=== PATIENT | male | born 1995 | race Caucasian/White ===

== ENCOUNTER 2021-09-04 16:05 | Inpatient (IN) | payer SELFPAY ==
--- NOTE | 2021-09-04 16:21 | ED.C_ITS ---
HPI - Psych General: Chief Complaint: Psychiatric Symptoms Stated Complaint: SI W/PLAN Time Seen by Provider: 09/04/21 16:21 History of Present Illness: HPI Narrative: Ms Terrazas is a 26-year-old gentleman with history of depression who presents to the emergency department with depression with suicidal ideation. He reports symptoms have been worse over the past month or so without specific exacerbating factors. He describes near constant intrusive thoughts of suicide and actively having to make decisions not to kill himself. His plan is to shoot himself and he does have access to firearms. He misses doses of medication every so often and has been out of his Risperdal for the past 3 days. He denies acute medical complaints. Overall the course of symptoms has been worsening. He has been hospitalized previously for psychiatric reasons though nothing recently. No other specific exacerbating or alleviating factors noted. Review of Systems General: Reports: 10 or more systems reviewed and unremarkable except in HPI and below PFSH ED PFSH: Medical History Major depressive disorder, recurrent severe without psychotic features Psychiatric care Social History Smoking and tobacco status: current every day smoker e-cigarettes E-Cigarette Details: vaporizer device and with nicotine E-cig/vape details: 5 mg/Day Quit status (tobacco): considering quitting Second hand smoke exposure: No Current gender identity: Male Physical Exam Narrative: EXAM NARRATIVE: GENERAL/CONSTITUTIONAL - well-appearing. No acute distress. Eyes -no scleral icterus, no conjunctival injection ENMT - Atraumatic external nose and ears. Moist mucous membranes NECK - supple. trachea midline CARDIOVASCULAR - regular rate and rhythm. RESPIRATORY -clear to auscultation bilaterally. ABDOMEN/GI - Nontender/Nondistended. MSK - Extremities without obvious deformity or tenderness to palpation SKIN - Warm, Dry NEURO - alert and appropriately oriented. Moves all extremities equally. PSYCH -depressed mood and affect Course ED course: - Patient was seen and evaluated by me at bedside -Vital signs obtained - Initial evaluation notable for no acute distress, nontoxic. - Labs notable for no leukocytosis, normal hemoglobin. Mild evidence of likely dehydration, can be orally rehydrated. Toxic ingestions negative with exception of marijuana. -Based on ED evaluation at this point there is no obvious condition that would preclude the patient from inpatient management of psychiatric concerns. Based on suicidal ideation with plan patient requires inpatient management -Psychiatry service consulted and agreed admit the patient. Vital Signs: Vital signs: Vital Signs Temperature 98.2 F 09/08/21 14:00 Pulse Rate 71 09/09/21 13:12 Respiratory Rate 16 09/09/21 13:12 Blood Pressure 121/79 09/09/21 13:12 Pulse Oximetry 96 09/09/21 13:12 MDM - Psych Medical Records: Attestation: I reviewed the patient's medical records. Lab Data: Attestation: I reviewed the patient's lab results. Labs: Lab Results 09/04/21 09/04/21 09/04/21 17:03 17:03 17:03 WBC 9.4 10^3/uL 10^3/ uL (4.0-10.0) RBC 5.16 10^6/uL 10^6 /uL (4.1-5.3) Hgb 14.8 g/dL g/dL (11.7-16.6) Hct 44.1 % % (42.0-52.0) MCV 85.5 fl fl (80-94) MCH 28.7 pg pg (28.0-34.0) MCHC 33.6 g/dL g/dL (30.0-36.0) RDW 12.6 % % (12.1-15.1) Plt Count 243 10^3/cmm 10^3 /cmm (130-400) MPV 11.0 fL H fL (7.4-10.4) Neut % (Auto) 78.4 % % Lymph % (Auto) 14.8 % % Kimble % (Auto) 5.8 % % Eos % (Auto) 0.4 % % Baso % (Auto) 0.3 % % Neut # (Auto) 7.33 10^3/uL 10^3 /uL (1.8-7.7) Lymph # (Auto) 1.4 10^3/uL 10^3/ uL (0.8-4.8) Kimble # (Auto) 0.5 10^3/uL 10^3/ uL (0.2-0.9) Eos # (Auto) 0.0 10^3/uL 10^3/ uL (0.0-0.8) Baso # (Auto) 0.0 10^3/uL 10^3/ uL (0.0-0.1) Nucleated RBC % (a uto) 0 % % Nucleated RBCs # 0.0 /100WBC /100W BC Sodium 135 mmol/L L mmol /L (136-145) Potassium 3.9 mmol/L mmol/L (3.5-5.1) Chloride 101 mmol/L mmol/L (98-107) Carbon Dioxide 17 mmol/L L mmol/ L (22-29) Anion Gap 20.9 H (5-19) BUN 11 mg/dL mg/dL (6-20) Creatinine 0.7 mg/dL mg/dL (0.7-1.2) GFR Calculation 138.6 mL/min H mL /min (90-130) Glucose 85 mg/dL mg/dL (65-115) Calculated Osmolal ity 279 mOsm/kg L mOs m/kg (285-295) Calcium 9.2 mg/dL mg/dL (8.5-10.5) Total Bilirubin 0.5 mg/dL mg/dL (0.15-1.2) AST 19 U/L U/L (0-40) ALT 31 U/L U/L (0-41) Alkaline Phosphata se 88 IU/L IU/L (40-130) Total Protein 7.8 g/dL g/dL (6.6-8.7) Albumin 4.8 g/dL g/dL (3.5-5.2) Globulin 3.0 g/dL g/dL (1.3-4.6) TSH 2.10 uIU/mL uIU/m L (0.27-4.20) Salicylates < 0.3 mg/dL L mg/ dL (3-10) Urine Opiates Scre en Negative ng/mL ng /mL (Negative) Acetaminophen < 5.0 ug/mL L ug/ mL (10-30) Ur Barbiturates Sc reen Negative ng/mL ng /mL (Negative) Ur Phencyclidine S crn Negative ng/mL ng /mL (Negative) Ur Amphetamines Sc reen Negative ng/mL ng /mL (Negative) U Benzodiazepines Scrn Negative ng/mL ng /mL (Negative) Urine Cocaine Scre en Negative ng/mL ng /mL (Negative) U Marijuana (THC) Screen Positive ng/mL H ng/mL (Negative) Ethyl Alcohol < 10 mg/dL mg/dL (0-10) Discharge Plan Discharge Admit Provider: Timur Huntley Condition: Stable Discharge Orders: Discharge Order (Routine); Ordered 09/09/21 Ordered By: Timur Huntley Discharge Diet: Regular Discharge Activity: Resume usual activity Coding Level of Care Code ED Financial Aid Administrator for Eric Glover
[2021-09-04 16:22] VITALS: BP 163/106; PULSE 73; RESP 18; TEMP 36.9; O2SAT 97; BMI 35.9
[2021-09-04 17:05] VITALS: BP 163/106; PULSE 73; RESP 18; O2SAT 97
[2021-09-04 17:11] LABS: Basophils % 0.3 %; Eosinophils % 0.4 %; Hematocrit 44.1 % (42.0-52.0); Hemoglobin 14.8 g/dL (11.7-16.6); Lymphocytes # 1.4 10^3/uL (0.8-4.8); Lymphocytes % 14.8 %; Mean Corpuscular HGB Conc 33.6 g/dL (30.0-36.0); Mean Corpuscular Hemoglobin 28.7 pg (28.0-34.0); Mean Corpuscular Volume 85.5 fl (80-94); Monocytes # 0.5 10^3/uL (0.2-0.9); Monocytes % 5.8 %; Neutrophils # 7.33 10^3/uL (1.8-7.7); Neutrophils % 78.4 %; Nucleated Red Blood Cells % 0 %; Platelet Count 243 10^3/cmm (130-400); Red Blood Count 5.16 10^6/uL (4.1-5.3); Red Cell Distribution Width 12.6 % (12.1-15.1); White Blood Count 9.4 10^3/uL (4.0-10.0)
[2021-09-04 17:24] LABS: Amphetamines Screen Urine Negative (Negative); Barbiturates Screen Urine Negative (Negative); Benzodiazepines Screen Urine Negative (Negative); Cocaine Screen Urine Negative (Negative); Opiate Screen Urine Negative (Negative); PCP Screen Urine Negative (Negative); THC Screen Urine Positive (Negative)
[2021-09-04 17:44] LABS: Acetaminophen < 5.0 ug/mL (10-30); Alanine Aminotransferase 31 U/L (0-41); Albumin Level 4.8 g/dL (3.5-5.2); Alcohol Level < 10 mg/dL (0-10); Alkaline Phosphatase 88 IU/L (40-130); Anion Gap 20.9 (5-19); Aspartate Amino Transferase 19 U/L (0-40); Blood Urea Nitrogen 11 mg/dL (6-20); Calcium 9.2 mg/dL (8.5-10.5); Carbon Dioxide 17 mmol/L (22-29); Chloride 101 mmol/L (98-107); Glomerular Filtration Rate 138.6 mL/min (90-130); Glucose 85 mg/dL (65-115); Osmolality Calculated 279 mOsm/kg (285-295); Potassium 3.9 mmol/L (3.5-5.1); Salicylate < 0.3 mg/dL (3-10); Sodium 135 mmol/L (136-145); Total Bilirubin 0.5 mg/dL (0.15-1.2); Total Protein 7.8 g/dL (6.6-8.7)
[2021-09-04] MEDS: nicotine 14 mg Patch 1 PATCH TRANSDERMA (19:14)
[2021-09-04 20:10] VITALS: BP 133/77; PULSE 69; RESP 18; O2SAT 98
[2021-09-04 22:00] VITALS: BP 133/77; PULSE 69; RESP 18; TEMP 36.9; O2SAT 98
[2021-09-04] MEDS: risperiDONE 2 mg Tablet PO (23:39)
[2021-09-04] MEDS: trazodone 50 mg Tablet PO (23:39)
[2021-09-05] MEDS: risperiDONE 2 mg Tablet PO ×3 (01:54→20:07)
[2021-09-05 06:00] VITALS: RESP 17
--- NOTE | 2021-09-05 08:06 | P.NPUHP_ITS ---
Providers/Chief Complaint Admitting Physician: Timur Huntley MD Chief Complaint: SI W/PLAN HPI NPU History of Present Illness Braulio Terrazas is a 26 year old male presented to the emergency department with the following report: Chief Complaint: Psychiatric Symptoms Stated Complaint: SI W/PLAN Time Seen by Provider: 09/04/21 16:21 History of Present Illness: HPI Narrative: Ms Terrazas is a 26-year-old gent maurizio with history of depression who presents to the emergency department with depression with suicidal ideation. He reports symptoms have been worse over the past month or so without specific exacerbating factors. He describes near constant intrusive thoughts of suicide and actively having to make decisions not to kill himself. His plan is to shoot himself and he does have access to firearms. He misses doses of medication every so often and has been out of his Risperdal for the past 3 days. He denies acute medical complaints. Overall the course of symptoms has been worsening. He has been hospitalized previously for psychiatric reasons though nothing recently. No other specific exacerbating or alleviating factors noted. He was admitted to the neuropsychiatric unit for definitive treatment of those issues. He presents today reporting that things have not changed that much since last time he was in the hospital. He mainly reported that [place] was now [place] girlfriend and their family. Which initially was a positive to be away from his family but recently has turned negative. He reports the main stressor in the home is that he is currently not working and hi s girlfriend's mother says disparaging things about him behind his back to his girlfriend which has created some contention. Additionally stressed out by his mother's cancer diagnosis, is bank account being empty, and feeling like no matter how hard he works on his mental health and other factors he always ends up at the same place which he reports has created significant despair. He reports that he does not know if we cannot get some stability whether he will be able to avoid killing himself. He discussed a situation where his significant other made him very angry that he is unclear why he did just turn into traffic. We discussed the risk benefits and alternatives of increasing his Prozac to 40 mg p.o. every morning and he understood agreed to proceed as is documented in his note. Reviewed his other medications which appear to be helping. He denies any other substantive changes in his life and an excerpt of his outpatient psychiatric evaluation is included below for context. We discussed seeing whether he had presented to the emergency department enough to get connected with the [facility] program but also discussed the possibility of getting him connected with [facility]. Per his 12/13/2020 [facility] outpatient psychiatric evaluation: [facility] History and Physical Time In: 09:20 Time Out: 10:15 Chief Complaint: I need to get back on medications History of Present Illness: This is a 25-year-old male who is been diagnosed with various diagnoses in the past including schizoaffective disorder, polysubstance use including marijuana, alcohol, nicotine, inhalants, and other substances, in addition to depression and anxiety, and cluster a personality traits. Today he describes a history that certainly consistent with schizoid and schizotypal personality traits and that he has a coping style centered around fantasy world including imaginative but also books and films, but his mo re recent presentation in the last few years have presented with some paranoid ideations and auditory hallucinations at times but she certainly has good insight into, and may have been exacerbated by continuous drug use including huffing gas starting around age 89 years old, the last time was 2 years ago, heavy alcohol use and marijuana use all of which started very young, alcohol starting at age 12, nicotine starting by age 79 years old, marijuana starting by age [age] years old. Today after discussing his past history and reviewing his to psychiatric admissions that both happened in 2019, I feel that the cluster B personality traits along with anxiety and depression are the most applicable in addition to the substance use. I believe that any psychotic symptoms he had were exacerbated by substance there is no doubt he does have schizoid and schizotypal personality traits. Question of trauma history is also come up and he tells me that he does not have much memory of his childhood, but this sounds as if it is more related to his chronic coughing of gasoline and marijuana use and other substances other than a dissociation process. There does not seem to be a history of severe physical or sexual abuse or even domestic violence but he says he was bullied severely by his brothers and his father was an angry alcoholic and yelled a lot. The patient remembers having depression and edlmi cidal thoughts even in elementary school as a result of the bullying from his older brothers. He tells me that he got so bad that he ended up being a bully himself for a few years. There is no active suicidal thoughts, there is no actual history of suicide attempts, but he has had some cutting superficially for self-harm and in addition he says he often peeled back his fingernails and toenails as a form self-harm the last time this happened was 3 weeks ago. During the session today he does not appear internally preoccupied but he is a little oddly related consistent with a cluster a personality. He is denying active hallucinations at this time but he does when to get back on the Risperdal saying that it helped him with stabilizing his mood but he is unsure if it helped with hallucinations. He does say that the hallucinations were less sinister and had less energy while on medications. History Past Psychiatric History: 2 psychiatric admissions in 2019 were his only admissions and they were each for about a week with suicidal ideations in the context of substance use. Denies actual suicide attempts, has had self-harm in the form of cutting and peeling back to his nails. Family History: Father had depression and alcoholism, a brother could possibly be bipolar, Past Medical History: Denies current medical issues. Substance Use History: Inhalants: Started age 89 years old huffing gasoline, he still coughs on occasion and last used 2 years ago at age 23 which is a little late for puffers as they tend to stop in their teenage years. Alcohol: Started age [age] years old, for a few years he was drinking a 12 pack a day, now he drinks 6 or 7 beers once a week and a few beers on other nights. Marijuana: Started age [age] years old has been a consistent user periods in his life Nicotine: Currently up 3 to 5 mg a day, started smoking cigarettes when he picked him up from his mother's ashtray at age 79 years old. Other: He says he has used other pills in the past including some opiates, muscle relaxers, amphetamines but nothing consistent. Social History: He denies ever being or ever having kids. He did graduate high school in [place], he is currently trying to go to college. Meds NPU Home Medications Medication Instructions Recorded Confirmed Last Taken Type fluoxetine 20 mg capsule 20 mg PO DAILY #30 cap 02/27/21 09/04/21 09/02/21 Rx risperidone 2 mg tablet 2 mg PO BID #60 tab 02/27/21 09/04/21 09/02/21 Rx melatonin 10 mg PO BEDTIME PRN 09/04/21 09/04/21 Unknown History Allergies Allergy/AdvReac Type Severity Reaction Status Date / Time No Known Allergies Allergy Verified 09/04/21 16:56 PFS NPU PFSH: Medical History Major depressive disorder, recurrent severe without psychotic features Psychiatric care Social History Smoking and tobacco status: current every day smoker e-cigarettes E-Cigarette Details: vaporizer device and with nicotine E-cig/vape details: 5 mg/Day Quit status (tobacco): considering quitting Second hand smoke exposure: No Current gender identity: Male Mental Status Exam MSE Comments: This is an overweight white male with adequate dress, grooming and eye contact. No abnormal movements except for mild psychomotor retardation. Cooperative with exam in no acute distress. Speech was normal rate and decreased volume. Mood described as depressed, affect congruent. Thought proce ss organized. Thought content: Patient endorsed some suicidal but denied homicidal ideations, there were no delusions reported or noted, he denied any visual hallucinations but endorses auditory hallucinations. Attention, concentration and memory appear intact but were not formally tested. He is alert and oriented x3. Insight and judgment are limited, impulse control limited. Vitals/I&O/Wt Last Vital Signs Temp 98.5 F 09/04/21 22:00 Pulse 69 09/04/21 22:00 Resp 17 09/05/21 06:00 BP 133/77 09/04/21 22:00 Pulse Ox 98 09/04/21 22:00 Weight last 48 hrs Weight 127.006 kg Data NPU : 09/04/21 17:03 09/04/21 17:03 A&P Assessment and plan (1) Major depressive disorder, recurrent, severe with psychotic symptoms: Status: Acute (2) Cannabis use disorder, moderate, in early remission, dependence: Status: Acute (3) Moderate alcohol dependence: Status: Acute (4) Inhalant use disorder, moderate, in sustained remission, dependence: Status: Acute (5) Nicotine dependence, unspecified, uncomplicated: Status: Acute (6) 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 1. Continue current medication. Increase Prozac to 40 mg p.o. every morning. 2. Continue every 15 minute checks for safety. 3. Encourage individual, group and milieu therapies. 4. Encourage sober living treatment after discharge at the highest level of care to which he is willing to commit. 5. Work with treatment team to explore what resources including case management he can be connected with. Attestations NPU Medical Necessity Statement*: Inpatient hospitalization is medically necessary and the clinically appropriate intervention at this time. We will monitor medication to make changes as indicated. Likely length of stay 3 to 5 days. 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
[2021-09-05] MEDS: nicotine 2 mg Gum BUCCAL ×2 (09:12→20:06)
[2021-09-05] MEDS: fluoxetine 20 mg Capsule PO (09:13)
[2021-09-05 14:00] VITALS: BP 142/79; PULSE 73; RESP 20; TEMP 36.6; O2SAT 97
[2021-09-05] MEDS: hyDROXYzine 25 mg Capsule 50 MG PO (17:08)
[2021-09-05] MEDS: trazodone 50 mg Tablet PO (20:06)
[2021-09-05 21:37] VITALS: BP 117/57; PULSE 72; RESP 18; TEMP 36.8; O2SAT 99
[2021-09-06 06:00] VITALS: BP 112/66; PULSE 58; RESP 17; TEMP 36.7; O2SAT 97
[2021-09-06] MEDS: fluoxetine 20 mg Capsule 40 MG PO (08:45)
[2021-09-06] MEDS: risperiDONE 2 mg Tablet PO ×2 (08:45→20:44)
[2021-09-06] MEDS: nicotine 2 mg Gum BUCCAL ×2 (08:45→20:44)
[2021-09-06 14:00] VITALS: BP 121/70; PULSE 77; RESP 20; TEMP 36.4; O2SAT 99
--- NOTE | 2021-09-06 18:14 | W.PM.NPUPNS ---
Subjective NPU Subjective: Interval history: Patient presents today reporting that he did have some spotting earlier but that he feels a little better right now. We discussed the timeframe to seeing a difference in the increase in the Prozac. We also discussed the plan to get him connected to resources that would allow for him to be trying to take steps forward in areas of independence. We discussed transitional programming and programs of case management and he felt that was a great idea. We did putting things in place prior to discharge given his level of despair at times. Mental Status Exam MSE Comments: This is an overweight white male with adequate dress, grooming and eye contact. No abnormal movements except for mild psychomotor retardation. Cooperative with exam in no acute distress. Speech was normal rate and decreased volume. Mood described as a little better, affect congruent. Thought process organized. Thought content: Patient endorsed some suicidal but denied homicidal ideations, there were no delusions reported or noted, he denied any visual hallucinations but endorses auditory hallucinations. Attention, concentration and memory appear intact but were not formally tested. He is alert and oriented x3. Insight and judgment are limited, impulse control limited. 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 1. Continue current medication. Increased Prozac to 40 mg p.o. every morning. 2. Continue every 15 minute checks for safety. 3. Encourage individual, group and milieu therapies. 4. Encourage sober living treatment after discharge at the highest level of care to which he is willing to commit. 5. Work with treatment team to explore what resources including case management he can be connected with. Attestations NPU Medical Necessity Statement*: Inpatient hospitalization is medically necessary and the clinically appropriate intervention at this time. We will monitor medication to make changes as indicated. Likely length of stay 2-4 days. Coding Level of Care Code Acute Humane Officer for Eric Glover
[2021-09-06] MEDS: trazodone 50 mg Tablet PO (20:44)
[2021-09-06] MEDS: hyDROXYzine 25 mg Capsule 50 MG PO (20:44)
[2021-09-06 21:18] VITALS: BP 138/84; PULSE 87; RESP 18; TEMP 36.8; O2SAT 99
[2021-09-07 06:00] VITALS: BP 130/81; PULSE 61; RESP 17; TEMP 36.6; O2SAT 98
[2021-09-07] MEDS: risperiDONE 2 mg Tablet PO ×2 (08:37→20:09)
[2021-09-07] MEDS: fluoxetine 20 mg Capsule 40 MG PO (08:37)
--- NOTE | 2021-09-07 09:13 | W.PM.NPUPNS ---
Subjective NPU Subjective: Interval history: Patient resents today reporting that he started to feel better. He even went as far as the talking about discharge. We had a lengthy discussion reviewing what we had discussed thus far specifically needing a element of safety by getting him connected with case management or the [facility] program with some entity to help him begin to navigate resources and be able to get some transitional housing or something with avoidance of being at the mercy of whoever he decides to live with. He agreed that that was a reasonable idea we talked about the possibility of discharge on Thursday with those things in place. Mental Status Exam MSE Comments: This is an overweight white male with adequate dress, grooming and eye contact. No abnormal movements except for mild psychomotor retardation. Cooperative with exam in no acute distress. Speech was normal rate and decreased volume. Mood described as a little better, affect congruent. Thought process organized. Thought content: Patient endorsed some suicidal but denied homicidal ideations, there were no delusions reported or noted, he denied any visual hallucinations but endorses auditory hallucinations. Attention, concentration and memory appear intact but were not formally tested. He is alert and oriented x3. Insight and judgment are limited, impulse control limited. 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 1. Continue current medication. 2. Continue every 15 minute checks for safety. 3. Encourage individual, group and milieu therapies. 4. Encourage sober living treatment after discharge at the highest level of care to which he is willing to commit. 5. Work with treatment team to explore what resources including case management he can be connected with. Attestations NPU Medical Necessity Statement*: Inpatient hospitalization is medically necessary and the clinically appropriate intervention at this time. We will monitor medication to make changes as indicated. Likely length of stay 2-3 days. Coding Level of Care Code Acute Leading Firefighter for Eric Glover
[2021-09-07 14:00] VITALS: BP 134/76; PULSE 79; RESP 15; TEMP 36.9; O2SAT 99
[2021-09-07] MEDS: nicotine 2 mg Gum BUCCAL (18:09)
[2021-09-07] MEDS: trazodone 50 mg Tablet PO (20:09)
[2021-09-07 22:00] VITALS: BP 134/73; PULSE 73; RESP 18; TEMP 36.9; O2SAT 98
[2021-09-08 05:36] VITALS: BMI 35.9
[2021-09-08 06:00] VITALS: BP 109/65; PULSE 56; RESP 17; TEMP 36.5; O2SAT 97
[2021-09-08] MEDS: risperiDONE 2 mg Tablet PO ×2 (08:42→20:42)
[2021-09-08] MEDS: fluoxetine 20 mg Capsule 40 MG PO (08:42)
--- NOTE | 2021-09-08 09:17 | P.NPUPN_ITS ---
Subjective NPU Subjective: Interval history: Patient presents today reporting that he is feeling decent. We agreed that we would work with the treatment team tomorrow to explore whether some opportunities in case management or other programming that will help with transitional housing and resources to help towards his independence exist. He is tolerating the changes in the medication and reports that he is eating and sleeping a little better. Mental Status Exam MSE Comments: This is an overweight white male with adequate dress, grooming and eye contact. No abnormal movements except for mild psychomotor retardation. Cooperative with exam in no acute distress. Speech was normal rate and vo lume. Mood described as a little better, affect congruent. Thought process organized. Thought content: Patient denied suicidal or homicidal ideations, there were no delusions reported or noted, he denied any visual hallucinations but endorses auditory hallucinations have significantly diminished. Attention, concentration and memory appear intact but were not formally tested. He is alert and oriented x3. Insight and judgment are limited, impulse control limited. Vitals/I&O/Wt Last Vital Signs Temp 97.7 F 09/08/21 06:00 Pulse 56 L 09/08/21 06:00 Resp 17 09/08/21 06:00 BP 109/65 09/08/21 06:00 Pulse Ox 97 09/08/21 06:00 Weight last 48 hrs Weight 127.006 kg Data NPU : 09/04/21 17:03 09/04/21 17:03 A&P Additional A&P Information (1) Major depressive disorder, recurrent, severe with psychotic symptoms: (2) Cannabis use disorder, moderate, in early remission, dependence: (3) Moderate alcohol dependence: (4) Inhalant use disorder, moderate, in sustained remission, dependence: (5) Nicotine dependence, unspecified, uncomplicated: (6) Cluster A personality disorder in adult: (7) Generalized anxiety disorder: Additional A&P Information This is an obese white male with known history of depression and addiction who presents with significant psychosocial stressors, recent suicidal thoughts and significant feelings of hopelessness open to medication changes and referrals. 1. Continue current medication. 2. Continue every 15 minute checks for safety. 3. Encourage individual, group and milieu therapies. 4. Encourage sober living treatment after discharge at the highest level of care to which he is willing to commit. 5. Work with treatment team to explore what resources including case management he can be connected with. Attestations NPU Medical Necessity Statement*: Inpatient hospitalization is medically necessary and the clinically appropriate intervention at this time. We will monitor medication to make changes as indicated. Likely length of stay 1-2 days. Coding Level of Care Code Acute Mixer [employer] for Eric Glover
[2021-09-08] MEDS: nicotine 2 mg Gum BUCCAL (13:39)
[2021-09-08 14:00] VITALS: BP 124/71; PULSE 74; RESP 20; TEMP 36.8; O2SAT 97
[2021-09-08 20:07] VITALS: BP 148/88; PULSE 101; RESP 17; O2SAT 98
[2021-09-08] MEDS: trazodone 50 mg Tablet PO (20:44)
[2021-09-09 06:00] VITALS: BP 121/79; PULSE 71; RESP 16; O2SAT 96
[2021-09-09] MEDS: risperiDONE 2 mg Tablet PO (08:57)
[2021-09-09] MEDS: fluoxetine 20 mg Capsule 40 MG PO (08:57)
[2021-09-09] MEDS: nicotine 2 mg Gum BUCCAL (08:57)
--- NOTE | 2021-09-09 12:43 | P.NPUDS_ITS ---
Diagnoses at Discharge Discharge Diagnosis (1) Major depressive disorder, recurrent, severe with psychotic symptoms: Status: Acute (2) Cannabis use disorder, moderate, in early remission, dependence: Status: Acute (3) Moderate alcohol dependence: Status: Acute (4) Inhalant use disorder, moderate, in sustained remission, dependence: Status: Deleted (5) Nicotine dependence, unspecified, uncomplicated: Status: Acute (6) Cluster A personality disorder in adult: Status: Acute (7) Generalized anxiety disorder: Status: Acute Reason for Visit Reason for Visit: SI W/PLAN Brief History: History of Present Illness Braulio Terrazas is a 26 year old male presented to the emergency department with the following report: Chief Complaint: Psychiatric Symptoms Stated Complaint: SI W/PLAN Time Seen by Provider: 09/04/21 16:21 History of Present Illness: HPI Narrative: Ms Terrazas is a 26-year-old gentleman with history of depression who presents to the emergency department with depression with suicidal ideation. He reports symptoms have been worse over the past month or so without specific exacerbating factors. He describes near constant intrusive thoughts of suicide and actively having to make decisions not to kill himself. His plan is to shoot himself and he does have access to firearms. He misses doses of medication every so often and has been out of his Risperdal for the past 3 days. He denies acute medical complaints. Overall the course of symptoms has been worsening. He has been hospitalized previously for psychiatric reasons though nothing recently. No other specific exacerbating or alleviating factors noted. He was admitted to the neuropsychiatric unit for definitive treatment of those issues. He presents today reporting that things have not changed that much since last time he was in the hospital. He mainly reported that [place] girlfriend and their family. Which initially was a positive to be away from his family but recently has turned negative. He reports the main stressor in the home is that he is currently not working and his girlfriend's mother says disparaging things about him behind his back to his girlfriend which has created some contention. Additionally stressed out by his mother's cancer diagnosis, is bank account being empty, and feeling like no matter how hard he works on his mental health and other factors he always ends up at the same place which he reports has created significant despair. He reports that he does not know if we cannot get some stability whether he will be able to avoid killing himself. He discussed a situation where his significant other made him very angry that he is unclear why he did just turn into traffic. We discussed the risk benefits and alternatives of increasing his Prozac to 40 mg p.o. every morning and he understood agreed to proceed as is documented in his note. Reviewed his other medications which appear to be helping. He denies any other substantive changes in his life and an excerpt of his outpatient psychiatric evaluation is included below for context. We discussed seeing whether he had presented to the emergency department enough to get connected with the [facility] program but also discussed the possibility of getting him connected with [facility] [employer] Per his 12/13/2020 [facility] outpatient psychiatric evaluation: [facility] History and Physical Time In: 09:20 Time Out: 10:15 Chief Complaint: I need to get back on medications History of Present Illness: This is a 25-year-old male who is been diagnosed with various diagnoses in the past including schizoaffective disorder, polysubstance use including marijuana, alcohol, nicotine, inhalants, and other substances, in addition to depression and anxiety, and cluster a personality traits. Today he describes a history that certainly consistent with schizoid and schizotypal personality traits and that he has a coping style centered around fantasy world including imaginative but also books and films, but his more recent presentation in the last few years have presented with some paranoid ideations and auditory hallucinations at times but she certainly has good insight into, and may have been exacerbated by continuous drug use including huffing gas starting around age 89 years old, the last time was 2 years ago, heavy alcohol use and marijuana use all of which started very young, alcohol starting at age 12, nicotine starting by age 79 years old, marijuana starting by age [age] years old. Today after discussing his past history and reviewing his to psychiatric admissions that both happened in 2019, I feel that the cluster B personality traits along with anxiety and depression are the most applicable in addition to the substance use. I believe that any psychotic symptoms he had were exacerbated by substance there is no doubt he does have schizoid and schizotypal personality traits. Question of trauma history is also come up and he tells me that he does not have much memory of his childhood, but this sounds as if it is more related to his chronic coughing of gasoline and marijuana use and other substances other than a dissociation process. There does not seem to be a history of severe physical or sexual abuse or even domestic violence but he says he was bullied severely by his brothers and his father was an angry alcoholic and yelled a lot. The patient remembers having depression and suicidal thoughts even in elementary school as a result of the bullying from his older brothers. He tells me that he got so bad that he ended up being a bully himself for a few years. There is no active suicidal thoughts, there is no actual history of suicide attempts, but he has had some cutting superficially for self-harm and in addition he says he often peeled back his fingernails and toenails as a form self-harm the last time this happened was 3 weeks ago. During the session today he does not appear internally preoccupied but he is a little oddly related consistent with a cluster a personality. He is denying active hallucinations at this time but he does when to get back on the Risperdal saying that it helped him with stabilizing his mood but he is unsure if it helped with hallucinations. He does say that the hallucinations were less sinister and had less energy while on medications. History Past Psychiatric History: 2 psychiatric admissions in 2019 were his only admissions and they were each for about a week with suicidal ideations in the context of substance use. Denies actual suicide attempts, has had self-harm in the form of cutting and peeling back to his nails. Family History: Father had depression and alcoholism, a brother could possibly be bipolar, Past Medical History: Denies current medical issues. Substance Use History: Inhalants: Started age 89 years old huffing gasoline, he still coughs on occasion and last used 2 years ago at age 23 which is a little late for puffers as they tend to stop in their teenage years. Alcohol: Started age [age] years old, for a few years he was drinking a 12 pack a day, now he drinks 6 or 7 beers once a week and a few beers on other nights. Marijuana: Started age [age] years old has been a consistent user periods in his life Nicotine: Currently up 3 to 5 mg a day, started smoking cigarettes when he picked him up from his mother's ashtray at age 79 years old. Other: He says he has used other pills in the past including some opiates, muscle relaxers, amphetamines but nothing consistent. Social History: He denies ever being or ever having kids. He did graduate high school in [place], he is currently trying to go to college. Hospital Course Hospital Course He slowly acclimated to the individual, group and milieu therapies provided. He is challenged by a certain level of immaturity and almost magical thinking where he is acknowledging the reality of the situation but ultimately wanting things to be at a positive place and is making decisions based on how he wants it and not how it is. Ultimately we added medication for sleep but left most things as they were given the circumstantial reality of his challenges. He had modest improvement and was able to contract for safety outside the hospital prior to discharge. During the hospitalization, patient had routine laboratory studies which were within normal limits except for few outliers. Additionally there was a general medical evaluation which was also within normal limits and revealed no new acute processes. Discharge Summary: At the time of discharge, he denied psychosis or lethality. Mood and anxiety were well managed. Patient endorsed a plan to avoid all drugs of abuse and follow-up with the aftercare recommendations of the treatment team. Patient was evaluated and deemed to be absent credible lethality, and had achieved the maximum benefit from an inpatient hospitalization, so was discharged. Mental Status Exam MSE Comments: This is an overweight white male with adequate dress, grooming and eye contact. No abnormal movements except for mild psychomotor retardation. Cooperative with exam in no acute distress. Speech was normal rate and volume. Mood described as better, affect congruent. Thought process organized. Thought content: Patient denied suicidal or homicidal ideations, there were no delusions reported or noted, he denied any visual or auditory hallucinations. Attention, concentration and memory appear intact but were not formally tested. He is alert and oriented x3. Insight and judgment are limited, impulse control limited. Discharge Data Vitals: Last Vital Signs Temp 98.2 F 09/08/21 14:00 Pulse 71 09/09/21 06:00 Resp 16 09/09/21 06:00 BP 121/79 09/09/21 06:00 Pulse Ox 96 09/09/21 06:00 Discharge Plan Discharge Patient Disposition: Home Condition: Stable Prescriptions: New trazodone 50 mg Tablet 50 mg PO BEDTIME PRN (Reason: Sleep) 30 Days Qty: 30 RF: 1 Continued melatonin 10 mg Tablet 10 mg PO BEDTIME PRN (Reason: Sleep) RF: 0 Discontinued fluoxetine [Prozac] 20 mg capsule 20 mg PO DAILY Qty: 30 RF: 2 No Action fluoxetine 40 mg capsule 80 mg PO DAILY Qty: 60 RF: 2 risperidone [Risperdal] 3 mg tablet 3 mg PO BID Qty: 60 RF: 2 Discharge Orders: Discharge Order (Routine); Ordered 09/09/21 Ordered By: Timur Huntley Referrals: Oskar Reardon MD [Physician] - 09/17/21 3:00 pm (Medication appointment with Dr. Reardon on 09/17/21 @ 3:00pm. ) Luciana Stephens CSS [Legal Recovery Specialist] - 09/09/21 11:00 am (Appointment with Luciana Stephens on 09/09/21 @ 11:00am. ) Discharge Diet: Regular Discharge Activity: Resume usual activity Patient Instructions: Opioid Safety Discharge Attestations NPU Time Spent in Discharge Care*: less than 30 min Specific Discharge Activities: Specific discharge activities: educating patient, discussing with family service caseworker/social workers/dc planners, documenting/other paperwork and evaluating patient/reviewing data Coding Level of Care Code Acute [facility] DC note Diagnoses Major depressive disorder, recurrent, severe with psychotic symptoms F33.3 Cannabis use disorder, moderate, in early remission, dependence F12.21 Moderate alcohol dependence F10.20 Inhalant use disorder, moderate, in sustained remission, dependence F18.21 Nicotine dependence, unspecified, uncomplicated F17.200 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
[2021-09-09 13:12] VITALS: BP 121/79; PULSE 71; RESP 16; O2SAT 96
== END 2021-09-09 13:26 | disposition home or self-care (01) | DRG 885 ==
LOC: ER 18:14 → NP 18:17
PROVIDERS: Admitting Provider Psychiatry & Neurology Psychiatry; Emergency Provider Emergency Medicine; Visit Provider Psychiatry & Neurology Psychiatry
DX: F33.3 Major depressive disorder, recurrent, severe with psychotic symptoms (principal); R45.851 Suicidal ideations; T43.596A Underdosing of other antipsychotics and neuroleptics, initial encounter; Z91.128 Patient's intentional underdosing of medication regimen for other reason; F17.290 Nicotine dependence, other tobacco product, uncomplicated; F12.20 Cannabis dependence, uncomplicated; F10.20 Alcohol dependence, uncomplicated; F60.89 Other specific personality disorders; F41.1 Generalized anxiety disorder
CPT/HCPCS: 80053; 80306; 80307; 84443; 85025; 97150; 97165; 99285

== ENCOUNTER 2021-09-14 19:04 | Inpatient (IN) | payer SELFPAY ==
[2021-09-14 19:11] VITALS: BP 178/106; PULSE 130; RESP 20; TEMP 36.7; O2SAT 98; BMI 35.9
[2021-09-14 19:47] VITALS: BP 140/92; PULSE 103; RESP 19; O2SAT 96
[2021-09-14 20:08] LABS: Basophils % 0.3 %; Eosinophils % 0.2 %; Hematocrit 38.9 % (42.0-52.0); Lymphocytes # 1.6 10^3/uL (0.8-4.8); Lymphocytes % 16.9 %; Mean Corpuscular HGB Conc 33.4 g/dL (30.0-36.0); Mean Corpuscular Hemoglobin 28.3 pg (28.0-34.0); Mean Corpuscular Volume 84.7 fl (80-94); Mean Platelet Volume 10.7 fL (7.4-10.4); Monocytes # 0.5 10^3/uL (0.2-0.9); Monocytes % 5.6 %; Neutrophils # 7.14 10^3/uL (1.8-7.7); Neutrophils % 76.8 %; Nucleated Red Blood Cells % 0 %; Platelet Count 226 10^3/cmm (130-400); Red Blood Count 4.59 10^6/uL (4.1-5.3); White Blood Count 9.3 10^3/uL (4.0-10.0)
[2021-09-14] MEDS: OLANZapine 10 mg ODT PO (20:08)
[2021-09-14 20:27] LABS: Acetaminophen < 5.0 ug/mL (10-30); Alanine Aminotransferase 30 U/L (0-41); Albumin Level 4.3 g/dL (3.5-5.2); Alcohol Level < 10 mg/dL (0-10); Alkaline Phosphatase 84 IU/L (40-130); Anion Gap 18.5 (5-19); Aspartate Amino Transferase 18 U/L (0-40); Blood Urea Nitrogen 9 mg/dL (6-20); Calcium 8.6 mg/dL (8.5-10.5); Carbon Dioxide 19 mmol/L (22-29); Chloride 103 mmol/L (98-107); Globulin 2.7 g/dL (1.3-4.6); Glomerular Filtration Rate 118.8 mL/min (90-130); Glucose 99 mg/dL (65-115); Osmolality Calculated 283 mOsm/kg (285-295); Potassium 3.5 mmol/L (3.5-5.1); Salicylate < 0.3 mg/dL (3-10); Sodium 137 mmol/L (136-145); Total Bilirubin 0.2 mg/dL (0.15-1.2)
--- NOTE | 2021-09-14 20:44 | ED.C_ITS ---
HPI - Psych General: Chief Complaint: Psychiatric Symptoms Stated Complaint: SI Time Seen by Provider: 09/14/21 19:09 History of Present Illness: MD complaint: suicidal ideation and feels depressed Onset (ago): day(s) Duration: constant and getting worse History of same: Yes Relieving factors: none Exacerbating factors: none Associated psychiatric symptoms: depression and suicidal ideation Associated symptoms: Reports auditory hallucinations, delusions and suicidal ideation; Deny homicidal ideation If self harm: admits thoughts of self harm and has plan Review of Systems Const: Denies: fever(s) or chills Card: Denies: chest pain or palpitations Resp: Denies: dyspnea or productive cough GI: Denies: abdominal pain, nausea or vomiting Psych: Reports: auditory hallucinations and suicidal ideation; Denies: homicidal ideation PFS ED PFSH: Medical History Major depressive disorder, recurrent severe without psychotic features Psychiatric care Social History Smoking and tobacco status: current every day smoker e-cigarettes E-Cigarette Details: vaporizer device and with nicotine E-cig/vape details: 5 mg/Day Quit status (tobacco): considering quitting Second hand smoke exposure: No Current gender identity: Male Physical Exam Const: COMMON NORMALS: no acute distress, patient oriented x3 and alert Eye: COMMON NORMALS: Equal, round and reactive pupils present and EOMs intact bilaterally PUPIL: Yes Equal, round and reactive pupils present Chest: COMMONS NORMALS: normal inspection of the chest Resp: COMMON NORMALS: normal respiratory effort, No use of accessory muscles and clear to auscultation bilaterally AUSCULTATION: clear to auscultation bilaterally Cardio: COMMON NORMALS: regular rate and regular rhythm RATE: regular rate RHYTHM: regular rhythm GI: COMMON NORMALS: Normal to inspection, nondistended, normoactive bowel sounds present and Soft to palpation PALPATION: Yes Soft to palpation Neuro: COMMON NORMALS: patient oriented x3 SENSORIUM/ORIENTATION: Yes alert Psych: COMMON NORMALS: cooperative and speech normal APPEARANCE: Yes grossly normal ATTITUDE: Yes engaged and Yes paranoid (mildly) ACTIVITY/MOTOR BEHAVIOR: Yes psychomotor agitation SPEECH: Yes normal speech THOUGHT CONTENT: Yes delusions ATTENTION/CONCENTRATION: Yes attention grossly intact and Yes concentration grossly impaired MEMORY/COGNITION: Yes memory grossly intact and Yes cognition grossly intact INSIGHT: Limited insight present (Psych) JUDGEMENT: Limited judgement present (Psych) Course Vital Signs: Vital signs: Vital Signs Temperature 98.0 F 09/14/21 19:11 Pulse Rate 103 H 09/14/21 19:47 Respiratory Rate 19 H 09/14/21 19:47 Blood Pressure 140/92 09/14/21 19:47 Pulse Oximetry 96 09/14/21 19:47 MDM - Psych MDM Narrative: Medical decision making narrative: 26-year-old male admits to delusions, and significant hallucinations. He believes he is in a game, and that we are in hell, playing for a place in [place]. He has tangential speech. He admits to hearing whispers outside of his room. He is medically stable otherwise. He was given Zyprexa Zydis for significant anxiety with mild agitation. He is calmer now. He has been cooperative. He is willing to stay. Lab Data: Labs: Lab Results 09/14/21 09/14/21 20:00 20:00 WBC 9.3 10^3/uL 10^3/ uL (4.0-10.0) RBC 4.59 10^6/uL 10^6 /uL (4.1-5.3) Hgb 13.0 g/dL g/dL (11.7-16.6) Hct 38.9 % L % (42.0-52.0) MCV 84.7 fl fl (80-94) MCH 28.3 pg pg (28.0-34.0) MCHC 33.4 g/dL g/dL (30.0-36.0) RDW 13.0 % % (12.1-15.1) Plt Count 226 10^3/cmm 10^3 /cmm (130-400) MPV 10.7 fL H fL (7.4-10.4) Neut % (Auto) 76.8 % % Lymph % (Auto) 16.9 % % Wallace % (Auto) 5.6 % % Eos % (Auto) 0.2 % % Baso % (Auto) 0.3 % % Neut # (Auto) 7.14 10^3/uL 10^3 /uL (1.8-7.7) Lymph # (Auto) 1.6 10^3/uL 10^3/ uL (0.8-4.8) Wallace # (Auto) 0.5 10^3/uL 10^3/ uL (0.2-0.9) Eos # (Auto) 0.0 10^3/uL 10^3/ uL (0.0-0.8) Baso # (Auto) 0.0 10^3/uL 10^3/ uL (0.0-0.1) Nucleated RBC % (a uto) 0 % % Nucleated RBCs # 0.0 /100WBC /100W BC Sodium 137 mmol/L mmol/L (136-145) Potassium 3.5 mmol/L mmol/L (3.5-5.1) Chloride 103 mmol/L mmol/L (98-107) Carbon Dioxide 19 mmol/L L mmol/ L (22-29) Anion Gap 18.5 (5-19) BUN 9 mg/dL mg/dL (6-20) Creatinine 0.8 mg/dL mg/dL (0.7-1.2) GFR Calculation 118.8 mL/min mL/m in (90-130) Glucose 99 mg/dL mg/dL (65-115) Calculated Osmolal ity 283 mOsm/kg L mOs m/kg (285-295) Calcium 8.6 mg/dL mg/dL (8.5-10.5) Total Bilirubin 0.2 mg/dL mg/dL (0.15-1.2) AST 18 U/L U/L (0-40) ALT 30 U/L U/L (0-41) Alkaline Phosphata se 84 IU/L IU/L (40-130) Total Protein 7.0 g/dL g/dL (6.6-8.7) Albumin 4.3 g/dL g/dL (3.5-5.2) Globulin 2.7 g/dL g/dL (1.3-4.6) Salicylates < 0.3 mg/dL L mg/ dL (3-10) Acetaminophen < 5.0 ug/mL L ug/ mL (10-30) Ethyl Alcohol < 10 mg/dL mg/dL (0-10) Discharge Plan Discharge Patient Disposition: Admitted As Inpatient Admit Provider: Timur Huntley Clinical Impression: Acute psychosis, Suicidal ideation Condition: Stable Coding Level of Care Code ED Drilling Engineer for Chg Fwd Exam Detailed
[2021-09-14 22:29] VITALS: RESP 16
[2021-09-14 22:32] VITALS: BP 126/80; PULSE 103; RESP 20; TEMP 36.7; O2SAT 98
[2021-09-15 00:08] LABS: Add Urine Microscopic? NO; Charge for UA Resulting for Rev
[2021-09-15 00:17] LABS: Bilirubin Urine Neg (Negative); Blood Urine Neg (Negative); Glucose Urine UA Norm (Normal); Ketones Urine 1+ (Negative); Leukocyte Esterase Urine Negative (Negative); Nitrate Urine Negative (Negative); Protein Urine Neg (Negative); Specific Gravity, Urine 1.015 (1.005-1.030); Urine Appearance Clear (CLEAR); Urine Color Yellow (Yellow); Urobilinogen Urine 1 mg/dL (Negative); pH Urine 6.5 (5-7)
[2021-09-15 00:32] LABS: Amphetamines Screen Urine Negative (Negative); Barbiturates Screen Urine Negative (Negative); Benzodiazepines Screen Urine Negative (Negative); Cocaine Screen Urine Negative (Negative); Opiate Screen Urine Negative (Negative); PCP Screen Urine Negative (Negative); THC Screen Urine Positive (Negative)
[2021-09-15 06:00] VITALS: RESP 18; BMI 35.9
[2021-09-15] MEDS: risperiDONE 2 mg Tablet PO ×2 (09:17→17:20)
[2021-09-15] MEDS: fluoxetine 20 mg Capsule 40 MG PO (09:17)
[2021-09-15] MEDS: hyDROXYzine 25 mg Capsule 50 MG PO (13:34)
[2021-09-15 14:00] VITALS: BP 136/66; PULSE 75; RESP 18; TEMP 36.5; O2SAT 97
--- NOTE | 2021-09-15 14:54 | W.PM.NPUH&PS ---
Providers/Chief Complaint Admitting Physician: Timur Huntley MD Chief Complaint: SI HPI NPU History of Present Illness Braulio Terrazas is a 26 year old male who presented to the emergency department with the following report: Chief Complaint: Psychiatric Symptoms Stated Complaint: SI Time Seen by Provider: 09/14/21 19:09 History of Present Illness: complaint: suicidal ideation and feels depressed Onset (ago): day(s) Duration: constant and getting worse History of same: Yes Relieving factors: none Exacerbating factors: none Associated psychiatric symptoms: depression and suicidal ideation Associated symptoms: Reports auditory hallucinations, delusions and suicidal ideation; Deny homicidal ideation If self harm: admits thoughts of self harm and has plan. He was admitted to the neuropsychiatric unit for definitive treatment of those issues. Patient has recently been discharged from the unit and at that time there were concerns about his readiness for discharge. He presents today discussing that there are things that we discussed again interplay. The fragility of his living arrangements led to him moving out, getting kicked out, breaking up with his girlfriend and then reconnecting with her creating emotional turmoil and homelessness. He presented reporting that he started having thoughts to hurt himself/kill himself but denies any new issues outside of the lingering and psychosocial challenges that were part of our concerns about his stability during the last admission. Risk-benefit terms of maintaining his medication at the current doses given that he just changed them in the past week. And he understood agreed receipt as documented in his note. Given the no substantive changes and H&P from a little over a week ago an excerpt from that note is included below for context. Per his 09/05/2021 [facility] inpatient psychiatric evaluation: History of Present Illness Braulio Terrazas is a 26 year old male presented to the emergency department with the following report: Chief Complaint: Psychiatric Symptoms Stated Complaint: SI W/PLAN Time Seen by Provider: 09/04/21 16:21 History of Present Illness: HPI Narrative: Ms Terrazas is a 26-year-old gentleman with history of depression who presents to the emergency department with depression with suicidal ideation. He reports symptoms have been worse over the past month or so without specific exacerbating factors. He describes near constant intrusive thoughts of suicide and actively having to make decisions not to kill himself. His plan is to shoot himself and he does have access to firearms. He misses doses of medication every so often and has been out of his Risperdal for the past 3 days. He denies acute medical complaints. Overall the course of symptoms has been worsening. He has been hospitalized previously for psychiatric reasons though nothing recently. No other specific exacerbating or alleviating factors noted. He was admitted to the neuropsychiatric unit for definitive treatment of those issues. He presents today reporting that things have not changed that much since last time he was in the hospital. He mainly reported that [place] and their family. Which initially was a positive to be away from his family but recently has turned negative. He reports the main stressor in the home is that he is currently not working and his girlfriend's mother says disparaging things about him behind his back to his girlfriend which has created some contention. Additionally stressed out by his mother's cancer diagnosis, is bank account being empty, and feeling like no matter how hard he works on his mental health and other factors he always ends up at the same place which he reports has created significant despair. He reports that he does not know if we cannot get some stability whether he will be able to avoid killing himself. He discussed a situation where his significant other made him very angry that he is unclear why he did just turn into traffic. We discussed the risk benefits and alternatives of increasing his Prozac to 40 mg p.o. every morning and he understood agreed to proceed as is documented in his note. Reviewed his other medications which appear to be helping. He denies any other substantive changes in his life and an excerpt of his outpatient psychiatric evaluation is included below for context. We discussed seeing whether he had presented to the emergency department enough to get connected with the [facility] program but also discussed the possibility of getting him connected with [facility]. Per his 12/13/2020 [facility] [place] outpatient psychiatric evaluation: [facility] [place] History and Physical Time In: 09:20 Time Out: 10:15 Chief Complaint: I need to get back on medications History of Present Illness: This is a 25-year-old male who is been diagnosed with various diagnoses in the past including schizoaffective disorder, polysubstance use including marijuana, alcohol, nicotine, inhalants, and other substances, in addition to depression and anxiety, and cluster a personality traits. Today he describes a history that certainly consistent with schizoid and schizotypal personality traits and that he has a coping style centered around fantasy world including imaginative but also books and films, but his more recent presentation in the last few years have presented with some paranoid ideations and auditory hallucinations at times but she certainly has good insight into, and may have been exacerbated by continuous drug use including huffing gas starting around age 89 years old, the last time was 2 years ago, heavy alcohol use and marijuana use all of which started very young, alcohol starting at age 12, nicotine starting by age 79 years old, marijuana starting by age [age] years old. Today after discussing his past history and reviewing his to psychiatric admissions that both happened in 2019, I feel that the cluster B personality traits along with anxiety and depression are the most applicable in addition to the substance use. I believe that any psychotic symptoms he had were exacerbated by substance there is no doubt he does have schizoid and schizotypal personality traits. Question of trauma history is also come up and he tells me that he does not have much memory of his childhood, but this sounds as if it is more related to his chronic coughing of gasoline and marijuana use and other substances other than a dissociation process. There does not seem to be a history of severe physical or sexual abuse or even domestic violence but he says he was bullied severely by his brothers and his father was an angry alcoholic and yelled a lot. The patient remembers having depression and suicidal thoughts even in elementary school as a result of the bullying from his older brothers. He tells me that he got so bad that he ended up being a bully himself for a few years. There is no active suicidal thoughts, there is no actual history of suicide attempts, but he has had some cutting superficially for self-harm and in addition he says he often peeled back his fingernails and toenails as a form self-harm the last time this happened was 3 weeks ago. During the session today he does not appear internally preoccupied but he is a little oddly related consistent with a cluster a personality. He is denying active hallucinations at this time but he does when to get back on the Risperdal saying that it helped him with stabilizing his mood but he is unsure if it helped with hallucinations. He does say that the hallucinations were less sinister and had less energy while on medications. History Past Psychiatric History: 2 psychiatric admissions in 2019 were his only admissions and they were each for about a week with suicidal ideations in the context of substance use. Denies actual suicide attempts, has had self-harm in the form of cutting and peeling back to his nails. Family History: Father had depression and alcoholism, a brother could possibly be bipolar, Past Medical History: Denies current medical issues. Substance Use History: Inhalants: Started age 89 years old huffing gasoline, he still coughs on occasion and last used 2 years ago at age 23 which is a little late for puffers as they tend to stop in their teenage years. Alcohol: Started age [age] years old, for a few years he was drinking a 12 pack a day, now he drinks 6 or 7 beers once a week and a few beers on other nights. Marijuana: Started age [age] years old has been a consistent user periods in his life Nicotine: Currently up 3 to 5 mg a day, started smoking cigarettes when he picked him up from his mother's ashtray at age 79 years old. Other: He says he has used other pills in the past including some opiates, muscle relaxers, amphetamines but nothing consistent. Social History: He denies ever being or ever having kids. He did graduate high school in [place], he is currently trying to go to college. Meds NPU Home Medications Medication Instructions Recorded Confirmed Last Taken Type risperidone 2 mg tablet 2 mg PO BID #60 tab 02/27/21 09/14/21 09/14/21 09:00 Rx melatonin 10 mg PO BEDTIME PRN 09/04/21 09/14/21 Unknown History fluoxetine 40 mg PO DAILY 30 Days #60 cap 09/09/21 09/14/21 Unknown Rx trazodone 50 mg PO BEDTIME PRN 30 Days #30 09/09/21 09/14/21 Unknown Rx tab Allergies Allergy/AdvReac Type Severity Reaction Status Date / Time No Known Allergies Allergy Verified 09/04/21 16:56 PFSH NPU PFSH: Medical History Major depressive disorder, recurrent severe without psychotic features Psychiatric care Social History Smoking and tobacco status: current every day smoker e-cigarettes E-Cigarette Details: vaporizer device and with nicotine E-cig/vape details: 5 mg/Day Quit status (tobacco): considering quitting Second hand smoke exposure: No Current gender identity: Male Mental Status Exam MSE Comments: This is an overweight white male with adequate dress, grooming and eye contact. No abnormal movements except for mild psychomotor agitation. Cooperative with exam in mild to moderate distress. Speech was decreased rate and volume. Mood described as depressed, affect congruent. Thought process organized. Thought content: Patient denied suicidal or homicidal ideations, there were no delusions reported or noted, he denied any visual hallucinations but endorses auditory hallucinations have significantly diminished. Attention, concentration and memory appear intact but were not formally tested. He is alert and oriented x3. Insight and judgment are limited, impulse control limited. Vitals/I&O/Wt Last Vital Signs Temp 97.7 F 09/15/21 14:00 Pulse 75 09/15/21 14:00 Resp 18 09/15/21 14:00 BP 136/69 09/15/21 14:00 Pulse Ox 97 09/15/21 14:00 Weight last 48 hrs Weight 127.006 kg Weight 127.006 kg Data NPU : 09/14/21 20:00 09/14/21 20:00 A&P Assessment and plan (1) Acute psychosis: Status: Acute (2) Suicidal ideation: Status: Acute (3) Major depressive disorder, recurrent, severe with psychotic symptoms: Status: Acute (4) Cannabis use disorder, moderate, in early remission, dependence: Status: Acute (5) Moderate alcohol dependence: Status: Acute (6) Inhalant use disorder, moderate, in sustained remission, dependence: Status: Acute (7) Nicotine dependence, unspecified, uncomplicated: Status: Acute (8) 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 1. Continue current medication. 2. Continue every 15 minute checks for safety. 3. Encourage individual, group and milieu therapies. 4. Encourage sober living treatment after discharge at the highest level of care to which he is willing to commit. 5. Work with treatment team to explore what resources including case management he can be connected with. Involuntary Hold Information 96 Hour Hold: 96 Hour Involuntary Admission: No Attestations NPU Medical Necessity Statement*: Inpatient hospitalization is medically necessary and the clinically appropriate intervention at this time. We will monitor medication to make changes as indicated. He will be in the hospital for over 2 midnights. Likely length of stay 3 to 5 days. 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
[2021-09-15] MEDS: nicotine 2 mg Gum BUCCAL (15:22)
[2021-09-15 20:28] VITALS: BP 144/76; PULSE 71; RESP 16; TEMP 36.4; O2SAT 99
[2021-09-16 06:00] VITALS: BP 159/83; PULSE 60; RESP 16; TEMP 36.8; O2SAT 99
[2021-09-16] MEDS: risperiDONE 2 mg Tablet PO ×2 (09:41→17:30)
[2021-09-16] MEDS: fluoxetine 20 mg Capsule 40 MG PO (09:41)
[2021-09-16] MEDS: nicotine 2 mg Gum BUCCAL ×2 (09:41→17:30)
[2021-09-16] MEDS: hyDROXYzine 25 mg Capsule 50 MG PO (12:55)
--- NOTE | 2021-09-16 12:55 | NPU.GN ---
[facility] Group Topic:Jeri Del Rosario / Discussion General Mood of Group:Braulio did not attend or participate in group today.
--- NOTE | 2021-09-16 12:58 | PC.NURSE ---
Pt reporting increasing anxiety. Pt stated, My anxiety is like a six or seven and I feel like I am having a delusion. Pt thought process disorganized. Pt requested anxiety medication. Pt given Vistaril 50 mg PO without complication.
[2021-09-16 14:00] VITALS: BP 124/74; PULSE 78; RESP 18; TEMP 36.9; O2SAT 98
--- NOTE | 2021-09-16 14:59 | W.PM.NPUPNS ---
Subjective NPU Subjective: Interval history: Today reporting that he acknowledges that he is over investment in his girlfriend in that circumstance is making him less stable. We discussed working with the treatment team to get a more stable discharge plan including where he lives. And reports he is open to that plan to avoid a rebound hospitalization. Mental Status Exam MSE Comments: This is an overweight white male with adequate dress, grooming and eye contact. No abnormal movements except for mild psychomotor agitation. Cooperative with exam in no acute distress. Speech was decreased rate and volume. Mood described as a little better, affect congruent. Thought process organized. Thought content: Patient denied suicidal or homicidal ideations, there were no delusions reported or noted, he denied any visual hallucinations but endorses diminishing auditory hallucinations. Attention, concentration and memory appear intact but were not formally tested. He is alert and oriented x3. Insight and judgment are limited, impulse control limited. 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 1. Continue current medication. 2. Continue every 15 minute checks for safety. 3. Encourage individual, group and milieu therapies. 4. Encourage sober living treatment after discharge at the highest level of care to which he is willing to commit. 5. Work with treatment team to explore what resources including case management he can be connected with. Involuntary Hold Information 96 Hour Hold: 96 Hour Involuntary Admission: No Attestations NPU Medical Necessity Statement*: Inpatient hospitalization is medically necessary and the clinically appropriate intervention at this time. We will monitor medication to make changes as indicated. Likely length of stay 2-4 days. Coding Level of Care Code Acute Medical Coding Technician for [facility]
[2021-09-16 21:35] VITALS: BP 156/92; PULSE 125; RESP 15; TEMP 36.8; O2SAT 95
[2021-09-16] MEDS: trazodone 50 mg Tablet PO (21:36)
--- NOTE | 2021-09-16 21:40 | PC.NURSE ---
pt requested sleep med, trazodone 50mg po given.
--- NOTE | 2021-09-17 | PC.NURSE ---
pt resting quietly with both eyes closed.
[2021-09-17 06:22] VITALS: BP 156/98; PULSE 73; RESP 18; TEMP 36.8; O2SAT 96
[2021-09-17] MEDS: fluoxetine 20 mg Capsule 40 MG PO (09:04)
[2021-09-17] MEDS: risperiDONE 2 mg Tablet PO (09:04)
--- NOTE | 2021-09-17 13:08 | P.NPUDS_ITS ---
Diagnoses at Discharge Discharge Diagnosis (1) Acute psychosis: Status: Resolved (2) Suicidal ideation: Status: Resolved (3) Major depressive disorder, recurrent, severe with psychotic symptoms: Status: Acute (4) Cannabis use disorder, moderate, in early remission, dependence: Status: Acute (5) Moderate alcohol dependence: Status: Acute (6) Inhalant use disorder, moderate, in sustained remission, dependence: Status: Deleted (7) Nicotine dependence, unspecified, uncomplicated: Status: Acute (8) Cluster A personality disorder in adult: Status: Acute (9) Generalized anxiety disorder: Status: Acute Reason for Visit Reason for Visit: SI Brief History: History of Present Illness Braulio Terrazas is a 26 year old male who presented to the emergency department with the following report: Chief Complaint: Psychiatric Symptoms Stated Complaint: SI Time Seen by Provider: 09/14/21 19:09 History of Present Illness: MD complaint: suicidal ideation and feels depressed Onset (ago): day(s) Duration: constant and getting worse History of same: Yes Relieving factors: none Exacerbating factors: none Associated psychiatric symptoms: depression and suicidal ideation Associated symptoms: Reports auditory hallucinations, delusions and suicidal ideation; Deny homicidal ideation If self harm: admits thoughts of self harm and has plan. He was admitted to the neuropsychiatric unit for definitive treatment of those issues. Patient has recently been discharged from the unit and at that time there were concerns about his readiness for discharge. He presents today discussing that there are things that we discussed again interplay. The fragility of his living arrangements led to him moving out, getting kicked out, breaking up with his girlfriend and then reconnecting with her creating emotional turmoil and homelessness. He presented reporting that he started having thoughts to hurt himself/kill himself but denies any new issues outside of the lingering and psychosocial challenges that were part of our concerns about his stability during the last admission. Risk-benefit terms of maintaining his medication at the current doses given that he just changed them in the past week. And he understood agreed receipt as documented in his note. Given the no substantive changes and H&P from a little over a week ago an excerpt from that note is included below for context. Per his 09/05/2021 [facility] inpatient psychiatric evaluation: History of Present Illness Braulio Terrazas is a 26 year old male presented to the emergency department with the following report: Chief Complaint: Psychiatric Symptoms Stated Complaint: SI W/PLAN Time Seen by Provider: 09/04/21 16:21 History of Present Illness: HPI Narrative: Ms Terrazas is a 26-year-old gentleman with history of depression who presents to the emergency department with depression with suicidal ideation. He reports symptoms have been worse over the past month or so without specific exacerbating factors. He describes near constant intrusive thoughts of suicide and actively having to make decisions not to kill himself. His plan is to shoot himself and he does have access to firearms. He misses doses of medication every so often and has been out of his Risperdal for the past 3 days. He denies acute medical complaints. Overall the course of symptoms has been worsening. He has been hospitalized previously for psychiatric reasons though nothing recently. No other specific e xacerbating or alleviating factors noted. He was admitted to the neuropsychiatric unit for definitive treatment of those issues. He presents today reporting that things have not changed that much si nce last time he was in the hospital. He mainly reported that [place] and their family. Which initially was a positive to be away from his family but recently has turned negative. He reports the main stressor in the home is that he is currently not working and his girlfriend's mother says disparaging things about him behind his back to his girlfriend which has created some contention. Additionally stressed out by his mother's cancer diagnosis, is bank account being empty, and feeling like no matter how hard he works on his mental health and other factors he always ends up at the same place which he reports has created significant despair. He reports that he does not know if we cannot get some stability whether he will be able to avoid killing himself. He discussed a situation where his significant other made him very angry that he is unclear why he did just turn into traffic. We discussed the risk benefits and alternatives of increasing his Prozac to 40 mg p.o. every morning and he understood agreed to proceed as is documented in his note. Reviewed his other medications which appear to be helping. He denies any other substantive changes in his life and an excerpt of his outpatient psychiatric evaluation is included below for context. We discussed seeing whether he had presented to the emergency department enough to get connected with the [facility] program but also discussed the possibility of getting him connected with [facility]. Per his 12/13/2020 [facility] outpatient psychiatric evaluation: [facility] History and Physical Time In: 09:20 Time Out: 10:15 Chief Complaint: I need to get back on medications History of Present Illness: This is a 25-year-old male who is been diagnosed with various diagnoses in the past including schizoaffective disorder, polysubstance use including marijuana, alcohol, nicotine, inhalants, and other substances, in addition to depression and anxiety, and cluster a personality traits. Today he describes a history that certainly consistent with schizoid and schizotypal personality traits and that he has a coping style centered around fantasy world including imaginative but also books and films, but his more recent presentation in the last few years have presented with some paranoid ideations and auditory hallucinations at times but she certainly has good insight into, and may have been exacerbated by continuous drug use including huffing gas starting around age 89 years old, the last time was 2 years ago, heavy alcohol use and marijuana use all of which started very young, alcohol starting at age 12, nicotine starting by age 79 years old, marijuana starting by age [age] years old. Today after discussing his past history and reviewing his to psychiatric admissions that both happened in 2019, I feel that the cluster B personality traits along with anxiety and depression are the most applicable in addition to the substance use. I believe that any psychotic symptoms he had were exacerbated by substance there is no doubt he does have schizoid and schizotypal personality traits. Question of trauma history is also come up and he tells me that he does not have much memory of his childhood, but this sounds as if it is more related to his chronic coughing of gasoline and marijuana use and other substances other than a dissociation process. There does not seem to be a history of severe physical or sexual abuse or even domestic violence but he says he was bullied severely by his brothers and his father was an angry alcoholic and yelled a lot. The patient remembers having depression and suicidal thoughts even in elementary school as a result of the bullying from his older brothers. He tells me that he got so bad that he ended up being a bully himself for a few years. There is no active suicidal thoughts, there is no actual history of suicide attempts, but he has had some cutting superficially for self-harm and in addition he says he often peeled back his fingernails and toenails as a form self-harm the last time this happened was 3 weeks ago. During the session today he does not appear internally preoccupied but he is a little oddly related consistent with a cluster a personality. He is denying active hallucinations at this time but he does when to get back on the Risperdal saying that it helped him with stabilizing his mood but he is unsure if it helped with hallucinations. He does say that the hallucinations were less sinister and had less energy while on medications. History Past Psychiatric History: 2 psychiatric admissions in 2019 were his only admissions and they were each for about a week with suicidal ideations in the context of substance use. Denies actual suicide attempts, has had self-harm in the form of cutting and peeling back to his nails. Family History: Father had depression and alcoholism, a brother could possibly be bipolar, Past Medical History: Denies current medical issues. Substance Use History: Inhalants: Started age 89 years old huffing gasoline, he still coughs on occasion and last used 2 years ago at age 23 which is a little late for puffers as they tend to stop in their teenage years. Alcohol: Started age [age] years old, for a few years he was drinking a 12 pack a day, now he drinks 6 or 7 beers once a week and a few beers on other nights. Marijuana: Started age [age] years old has been a consistent user periods in his li fe Nicotine: Currently up 3 to 5 mg a day, started smoking cigarettes when he picked him up from his mother's ashtray at age 79 years old. Other: He says he has used other pills in the past including some opiates, muscle relaxers, amphetamines but nothing consistent. Social History: He denies ever being or ever having kids. He did graduate high school in [place], he is currently trying to go to college. Hospital Course Hospital Course He quickly acclimated to the individual, group and milieu therapies provided. We added some trazodone to assist sleep and work with him along with the treatment team to begin the process of getting some independent functioning and not returning to these less than sufficient living arrangements that follow heart quickly. He had modest improvement but endorsed a plan to work on the necessary pieces for greater independence and contract for safety outside the hospital prior to discharge. During the hospitalization, patient had routine laboratory studies which were within normal limits except for few outliers. Additionally there was a general medical evaluation which was also within normal limits and revealed no new acute processes. Discharge Summary: At the time of discharge, he denied psychosis or lethality. Mood and anxiety were well managed. Patient endorsed a plan to avoid all drugs of abuse and follow-up with the aftercare recommendations of the treatment team. Patient was evaluated and deemed to be absent credible lethality, and had achieved the maximum benefit from an inpatient hospitalization, so was discharged. Involuntary Hold Information 96 Hour Hold: 96 Hour Involuntary Admission: No Mental Status Exam MSE Comments: This is an overweight white male with adequate dress, grooming and eye contact. No abnormal movements except for mild psychomotor agitation. Cooperative with exam in no acute distress. Speech was likely decreased rate a nd volume. Mood described as better, affect congruent. Thought process organized. Thought content: Patient denied suicidal or homicidal ideations, there were no delusions reported or noted, he denied any visual or auditory hallucinations. Attention, concentration and memory appear intact but were not formally tested. He is alert and oriented x3. Insight and judgment are limited, but improving impulse control limited. Discharge Data Vitals: Last Vital Signs Temp 98.3 F 09/17/21 06:22 Pulse 73 09/17/21 06:22 Resp 18 09/17/21 06:22 BP 156/98 09/17/21 06:22 Pulse Ox 96 09/17/21 06:22 Discharge Plan Discharge Patient Disposition: Home Condition: Stable Prescriptions: Continued melatonin 10 mg Tablet 10 mg PO BEDTIME PRN (Reason: Sleep) RF: 0 trazodone 50 mg Tablet 50 mg PO BEDTIME PRN (Reason: Sleep) 30 Days Qty: 30 RF: 1 No Action fluoxetine 40 mg capsule 80 mg PO DAILY Qty: 60 RF: 2 risperidone [Risperdal] 3 mg tablet 3 mg PO BID Qty: 60 RF: 2 Discharge Orders: Discharge Order (Routine); Ordered 09/17/21 Ordered By: Timur Huntley Referrals: Oskar Reardon MD [Physician] - 09/20/21 Discharge Diet: Regular Discharge Activity: Resume usual activity Patient Instructions: Opioid Safety Discharge Attestations NPU Time Spent in Discharge Care*: less than 30 min Specific Discharge Activities: Specific discharge activities: educating patient, discussing with case sealer/social workers/dc planners, documenting/other paperwork and evaluating patient/reviewing data Coding Level of Care Code Acute Chg FW DC note Diagnoses Acute psychosis F23 Suicidal ideation R45.851 Major depressive disorder, recurrent, severe with psychotic symptoms F33.3 Cannabis use disorder, moderate, in early remission, dependence F12.21 Moderate alcohol dependence F10.20 Inhalant use disorder, moderate, in sustained remission, dependence F18.21 Nicotine dependence, unspecified, uncomplicated F17.200 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
--- NOTE | 2021-09-17 13:15 | NPU.GN ---
[facility] Group Topic: Jeri Del Rosario General Mood of Group: Braulio did attend and participate in group today.
[2021-09-17 13:21] VITALS: BP 156/98; PULSE 73; RESP 18; TEMP 36.8; O2SAT 96
== END 2021-09-17 13:55 | disposition home or self-care (01) | DRG 885 ==
LOC: ER 21:01 → NP 21:54
PROVIDERS: Admitting Provider Psychiatry & Neurology Psychiatry; Emergency Provider Emergency Medicine; Visit Provider Psychiatry & Neurology Psychiatry
DX: F23 Brief psychotic disorder (principal); R45.851 Suicidal ideations; F33.3 Major depressive disorder, recurrent, severe with psychotic symptoms; F10.20 Alcohol dependence, uncomplicated; F18.21 Inhalant dependence, in remission; F17.290 Nicotine dependence, other tobacco product, uncomplicated; F60.89 Other specific personality disorders; F41.1 Generalized anxiety disorder; F12.21 Cannabis dependence, in remission; Z59.01 Sheltered homelessness; Z91.52 Personal history of nonsuicidal self-harm; Z81.8 Family history of other mental and behavioral disorders; Z81.1 Family history of alcohol abuse and dependence
CPT/HCPCS: 80053; 80306; 80307; 81003; 85025; 97165; 99285

== ENCOUNTER → 2021-09-23 10:23 | Outpatient (BNVA) | payer OTHER, SELFPAY | PROVIDERS: Visit Provider Psychiatry & Neurology Psychiatry | DX: F33.2 Major depressive disorder, recurrent severe without psychotic features (principal); Z79.899 Other long term (current) drug therapy | CPT/HCPCS: 80061; 83036 ==

== ENCOUNTER 2022-01-09 15:25 | Emergency (ER) | payer SELFPAY ==
[2021-09-25 16:09] VITALS: BMI 39.9
[2022-01-09] VITALS (7 sets, daily range): BP systolic 125–198; BP diastolic 59–95; PULSE 57–86; RESP 16–18; TEMP 36.7; O2SAT 95–96; BMI 38.9
--- NOTE | 2022-01-09 16:03 | W.ED.PSYCHS ---
Documented by User: Lul Moreland MD 01/13/22 00:38 HPI - Psych General: Chief Complaint: Psychiatric Symptoms Stated Complaint: SI Time Seen by Provider: 01/09/22 16:02 History of Present Illness: Mr. Terrazas is a 26-year-old gentleman with history of substance abuse and reported diagnosis of schizoaffective disorder who presents to the emergency department due to mental health concerns. He was hospitalized last in September and does report benefit from that hospitalization though over the past few months he has had various psychiatric concerns that have worsened recently. He endorses feeling anxious all the time and having suicidal thoughts. He mostly keeps them to himself however over the past few days or week has worsened. He has problems regarding substance abuse including delta 8 THC and alcohol use. This is led to problems including stealing. Additionally he has not taken his medications for his psychiatric diagnoses for the past 3 days. He reported suicidal thoughts to his family and last night threatened to roll out of car. He endorses vivid delusions at times. Overall course of symptoms has been worsening. Intensity is moderate to severe. Does have cough related to smoking. No other specific changes in health, exacerbating, or alleviating factors identified. Duration: getting worse History of same: Yes Context: recent alcohol abuse, recent drug abuse and not taking psychiatric medications Associated psychiatric symptoms: suicidal ideation and delusions Associated symptoms: Reports delusions If self harm: admits thoughts of self harm Review of Systems General: Reports: 10 or more systems reviewed and unremarkable except in HPI and below PFSH ED PFSH: Medical History Major depressive disorder, recurrent severe without psychotic features Psychiatric care Social History Smoking and tobacco status: current every day smoker e-cigarettes E-Cigarette Details: vaporizer device and with nicotine E-cig/vape details: 5 mg/Day Quit status (tobacco): considering quitting Second hand smoke exposure: No Current gender identity: Male Physical Exam Const: COMMON NORMALS: alert GENERAL APPEARANCE: cooperative and well developed HENMT: COMMON NORMALS: normocephalic and atraumatic HEAD & SCALP: normocephalic and atraumatic Eye: COMMON NORMALS: conjunctivae normal CONJUNCTIVA: Yes conjunctivae normal SCLERA: sclerae normal Neck/C-Spine: COMMON NORMALS: supple GENERAL: Yes trachea midline Resp: COMMON NORMALS: clear to auscultation bilaterally EFFORT & INSPECTION: Yes able to speak in complete sentences AUSCULTATION: clear to auscultation bilaterally Cardio: COMMON NORMALS: regular rate and regular rhythm RATE: regular rate RHYTHM: regular rhythm GI: COMMON NORMALS: Soft to palpation PALPATION: Yes Soft to palpation and No Tenderness to palpation present (GI) PERCUSSION: normal to percussion Extremity: GENERAL: Yes normal exam except as noted and No edema Neuro: COMMON NORMALS: moves all extremities SENSORIUM/ORIENTATION: Yes alert and No Orientation impaired Psych: COMMON NORMALS: mental status grossly normal and Normal thought process present THOUGHT PROCESS: Normal thought process present THOUGHT CONTENT: Yes Suicidality present and Yes delusions INSIGHT: Fair insight present (Psych) Course ED course: - Patient was seen and evaluated by me at bedside -Vital signs obtained - Initial evaluation notable for exam as above - Labs personally interpreted by me - Labs notable for no leukocytosis, metabolic panel without acute derangement requiring intervention. Drug screen as tested negative with exception of positive THC. - Given progression of symptoms including suicidal ideation with fleeting plans patient requires inpatient admission for psychiatric care and stabilization. Collateral information provided by patient's is helpful, patient does minimize some events and symptoms. - Based on ED evaluation at this point there is no obvious condition that would preclude the patient from inpatient management of psychiatric concerns. - I had initially discussed case with psychiatry service here however patient is requesting transfer for other inpatient psychiatric facility. - Handed off to overnight ED physician Dr. Gunderson pending accepting facility for inpatient psych. Vital Signs: Vital signs: Vital Signs Temperature 98.0 F 01/09/22 15:38 Pulse Rate 67 01/10/22 06:00 Respiratory Rate 16 01/10/22 06:00 Blood Pressure 122/40 01/10/22 06:00 Pulse Oximetry 97 01/10/22 06:00 [facility] - Psych Medical Decision Making Patient presents here with suicidal ideation he has been medically cleared will transfer to [facility]. Patient requested transfer did not want to be admitted here. Care assumed at change of shift. Patient is remained stable is not had any aggressive behaviors will transfer to [facility] via ambulance. Medical Records I reviewed the patient's medical records. Lab Data I reviewed the patient's lab results. : 01/09/22 15:50 01/09/22 15:50 Laboratory Results WBC 8.3 10^3/uL (4.0-10.0) 01/09/22 15:50 RBC 4.92 10^6/uL (4.1-5.3) 01/09/22 15:50 Hgb 14.0 g/dL (11.7-16.6) 01/09/22 15:50 Hct 42.5 % (42.0-52.0) 01/09/22 15:50 MCV 86.4 fl (80-94) 01/09/22 15:50 MCH 28.5 pg (28.0-34.0) 01/09/22 15:50 MCHC 32.9 g/dL (30.0-36.0) 01/09/22 15:50 RDW 13.0 % (12.1-15.1) 01/09/22 15:50 Plt Count 250 10^3/cmm (130-400) 01/09/22 15:50 MPV 10.8 fL (7.4-10.4) H 01/09/22 15:50 Neut % (Auto) 72.4 % 01/09/22 15:50 Lymph % (Auto) 19.5 % 01/09/22 15:50 Atkinson % (Auto) 6.3 % 01/09/22 15:50 Eos % (Auto) 0.8 % 01/09/22 15:50 Baso % (Auto) 0.4 % 01/09/22 15:50 Neut # (Auto) 5.99 10^3/uL (1.8-7.7) 01/09/22 15:50 Lymph # (Auto) 1.6 10^3/uL (0.8-4.8) 01/09/22 15:50 Atkinson # (Auto) 0.5 10^3/uL (0.2-0.9) 01/09/22 15:50 Eos # (Auto) 0.1 10^3/uL (0.0-0.8) 01/09/22 15:50 Baso # (Auto) 0.0 10^3/uL (0.0-0.1) 01/09/22 15:50 Nucleated RBC % (auto) 0 % 01/09/22 15:50 Nucleated RBCs # 0.0 /100WBC 01/09/22 15:50 Sodium 135 mmol/L (136-145) L 01/09/22 15:50 Potassium 4.3 mmol/L (3.5-5.1) 01/09/22 15:50 Chloride 100 mmol/L (98-107) 01/09/22 15:50 Carbon Dioxide 25 mmol/L (22-29) 01/09/22 15:50 Anion Gap 14.3 (5-19) 01/09/22 15:50 BUN 10 mg/dL (6-20) 01/09/22 15:50 Creatinine 0.7 mg/dL (0.7-1.2) 01/09/22 15:50 GFR Calculation 138.6 mL/min (90-130) H 01/09/22 15:50 Glucose 91 mg/dL (65-115) 01/09/22 15:50 Calculated Osmolality 279 mOsm/kg (285-295) L 01/09/22 15:50 Calcium 9.9 mg/dL (8.5-10.5) 01/09/22 15:50 Total Bilirubin 0.2 mg/dL (0.15-1.2) 01/09/22 15:50 AST 19 U/L (0-40) 01/09/22 15:50 ALT 30 U/L (0-41) 01/09/22 15:50 Alkaline Phosphatase 94 IU/L (40-130) 01/09/22 15:50 Total Protein 7.8 g/dL (6.6-8.7) 01/09/22 15:50 Albumin 4.3 g/dL (3.5-5.2) 01/09/22 15:50 Globulin 3.5 g/dL (1.3-4.6) 01/09/22 15:50 TSH 1.60 uIU/mL (0.27-4.20) 01/09/22 15:50 Salicylates < 0.3 mg/dL (3-10) L 01/09/22 15:50 Urine Opiates Screen Negative ng/mL (Negative) 01/09/22 15:50 Acetaminophen < 5.0 ug/mL (10-30) L 01/09/22 15:50 Ur Barbiturates Screen Negative ng/mL (Negative) 01/09/22 15:50 Ur Phencyclidine Scrn Negative ng/mL (Negative) 01/09/22 15:50 Ur Amphetamines Screen Negative ng/mL (Negative) 01/09/22 15:50 U Benzodiazepines Scrn Negative ng/mL (Negative) 01/09/22 15:50 Urine Cocaine Screen Negative ng/mL (Negative) 01/09/22 15:50 U Marijuana (THC) Screen Positive ng/mL (Negative) H 01/09/22 15:50 Ethyl Alcohol < 10 mg/dL (0-10) 01/09/22 15:50 Coronavirus 229E (PCR) Not detected (NOT DETECT) 01/09/22 19:55 SARS-CoV-2 (PCR) Not detected (NOT DETECT) 01/09/22 19:55 Discharge Plan Discharge Patient Disposition: Xfer Psychiatric Hosp Clinical Impression: Suicidal ideation, Generalized anxiety disorder Condition: Stable Coding Level of Care Code ED Asphalt Screed Operator for Chg Fwd Exam Comprehensive Documented by User: Man Gunderson MD 01/10/22 05:54 HPI - Psych General: Chief Complaint: Psychiatric Symptoms Stated Complaint: SI Time Seen by Provider: 01/09/22 16:02 [facility] ED PFSH: Medical History Major depressive disorder, recurrent severe without psychotic features Psychiatric care Social History Smoking and tobacco status: current every day smoker e-cigarettes E-Cigarette Details: vaporizer device and with nicotine E-cig/vape details: 5 mg/Day Quit status (tobacco): considering quitting Second hand smoke exposure: No Current gender identity: Male Course Vital Signs: Vital signs: Vital Signs Temperature 98.0 F 01/09/22 15:38 Pulse Rate 67 01/10/22 06:00 Respiratory Rate 16 01/10/22 06:00 Blood Pressure 122/40 01/10/22 06:00 Pulse Oximetry 97 01/10/22 06:00 MDM - Psych Medical Decision Making Patient presents here with suicidal ideation he has been medically cleared will transfer to [facility]. Patient requested transfer did not want to be admitted here. Lab Data : 01/09/22 15:50 01/09/22 15:50 Laboratory Results WBC 8.3 10^3/uL (4.0-10.0) 01/09/22 15:50 RBC 4.92 10^6/uL (4.1-5.3) 01/09/22 15:50 Hgb 14.0 g/dL (11.7-16.6) 01/09/22 15:50 Hct 42.5 % (42.0-52.0) 01/09/22 15:50 MCV 86.4 fl (80-94) 01/09/22 15:50 MCH 28.5 pg (28.0-34.0) 01/09/22 15:50 MCHC 32.9 g/dL (30.0-36.0) 01/09/22 15:50 RDW 13.0 % (12.1-15.1) 01/09/22 15:50 Plt Count 250 10^3/cmm (130-400) 01/09/22 15:50 MPV 10.8 fL (7.4-10.4) H 01/09/22 15:50 Neut % (Auto) 72.4 % 01/09/22 15:50 Lymph % (Auto) 19.5 % 01/09/22 15:50 Atkinson % (Auto) 6.3 % 01/09/22 15:50 Eos % (Auto) 0.8 % 01/09/22 15:50 Baso % (Auto) 0.4 % 01/09/22 15:50 Neut # (Auto) 5.99 10^3/uL (1.8-7.7) 01/09/22 15:50 Lymph # (Auto) 1.6 10^3/uL (0.8-4.8) 01/09/22 15:50 Atkinson # (Auto) 0.5 10^3/uL (0.2-0.9) 01/09/22 15:50 Eos # (Auto) 0.1 10^3/uL (0.0-0.8) 01/09/22 15:50 Baso # (Auto) 0.0 10^3/uL (0.0-0.1) 01/09/22 15:50 Nucleated RBC % (auto) 0 % 01/09/22 15:50 Nucleated RBCs # 0.0 /100WBC 01/09/22 15:50 Sodium 135 mmol/L (136-145) L 01/09/22 15:50 Potassium 4.3 mmol/L (3.5-5.1) 01/09/22 15:50 Chloride 100 mmol/L (98-107) 01/09/22 15:50 Carbon Dioxide 25 mmol/L (22-29) 01/09/22 15:50 Anion Gap 14.3 (5-19) 01/09/22 15:50 BUN 10 mg/dL (6-20) 01/09/22 15:50 Creatinine 0.7 mg/dL (0.7-1.2) 01/09/22 15:50 GFR Calculation 138.6 mL/min (90-130) H 01/09/22 15:50 Glucose 91 mg/dL (65-115) 01/09/22 15:50 Calculated Osmolality 279 mOsm/kg (285-295) L 01/09/22 15:50 Calcium 9.9 mg/dL (8.5-10.5) 01/09/22 15:50 Total Bilirubin 0.2 mg/dL (0.15-1.2) 01/09/22 15:50 AST 19 U/L (0-40) 01/09/22 15:50 ALT 30 U/L (0-41) 01/09/22 15:50 Alkaline Phosphatase 94 IU/L (40-130) 01/09/22 15:50 Total Protein 7.8 g/dL (6.6-8.7) 01/09/22 15:50 Albumin 4.3 g/dL (3.5-5.2) 01/09/22 15:50 Globulin 3.5 g/dL (1.3-4.6) 01/09/22 15:50 TSH 1.60 uIU/mL (0.27-4.20) 01/09/22 15:50 Salicylates < 0.3 mg/dL (3-10) L 01/09/22 15:50 Urine Opiates Screen Negative ng/mL (Negative) 01/09/22 15:50 Acetaminophen < 5.0 ug/mL (10-30) L 01/09/22 15:50 Ur Barbiturates Screen Negative ng/mL (Negative) 01/09/22 15:50 Ur Phencyclidine Scrn Negative ng/mL (Negative) 01/09/22 15:50 Ur Amphetamines Screen Negative ng/mL (Negative) 01/09/22 15:50 U Benzodiazepines Scrn Negative ng/mL (Negative) 01/09/22 15:50 Urine Cocaine Screen Negative ng/mL (Negative) 01/09/22 15:50 U Marijuana (THC) Screen Positive ng/mL (Negative) H 01/09/22 15:50 Ethyl Alcohol < 10 mg/dL (0-10) 01/09/22 15:50 Coronavirus 229E (PCR) Not detected (NOT DETECT) 01/09/22 19:55 SARS-CoV-2 (PCR) Not detected (NOT DETECT) 01/09/22 19:55 Discharge Plan Discharge Patient Disposition: Xfer Psychiatric Hosp Clinical Impression: Suicidal ideation, Generalized anxiety disorder Condition: Stable Coding Level of Care Code ED Asphalt Screed Operator for Chg Fwd Exam Comprehensive Documented by User: Jaya Boateng DO 01/10/22 17:37 HPI - Psych General: Chief Complaint: Psychiatric Symptoms Stated Complaint: SI Time Seen by Provider: 01/09/22 16:02 [facility] ED PFSH: Medical History Major depressive disorder, recurrent severe without psychotic features Psychiatric care Social History Smoking and tobacco status: current every day smoker e-cigarettes E-Cigarette Details: vaporizer device and with nicotine E-cig/vape details: 5 mg/Day Quit status (tobacco): considering quitting Second hand smoke exposure: No Current gender identity: Male Course Vital Signs: Vital signs: Vital Signs Temperature 98.0 F 01/09/22 15:38 Pulse Rate 67 01/10/22 06:00 Respiratory Rate 16 01/10/22 06:00 Blood Pressure 122/40 01/10/22 06:00 Pulse Oximetry 97 01/10/22 06:00 [facility] - Psych Medical Decision Making Patient presents here with suicidal ideation he has been medically cleared will transfer to [facility]. Patient requested transfer did not want to be admitted here. Care assumed at change of shift. Patient is remained stable is not had any aggressive behaviors will transfer to [facility] via ambulance. Lab Data : 01/09/22 15:50 01/09/22 15:50 Laboratory Results WBC 8.3 10^3/uL (4.0-10.0) 01/09/22 15:50 RBC 4.92 10^6/uL (4.1-5.3) 01/09/22 15:50 Hgb 14.0 g/dL (11.7-16.6) 01/09/22 15:50 Hct 42.5 % (42.0-52.0) 01/09/22 15:50 MCV 86.4 fl (80-94) 01/09/22 15:50 MCH 28.5 pg (28.0-34.0) 01/09/22 15:50 MCHC 32.9 g/dL (30.0-36.0) 01/09/22 15:50 RDW 13.0 % (12.1-15.1) 01/09/22 15:50 Plt Count 250 10^3/cmm (130-400) 01/09/22 15:50 MPV 10.8 fL (7.4-10.4) H 01/09/22 15:50 Neut % (Auto) 72.4 % 01/09/22 15:50 Lymph % (Auto) 19.5 % 01/09/22 15:50 Atkinson % (Auto) 6.3 % 01/09/22 15:50 Eos % (Auto) 0.8 % 01/09/22 15:50 Baso % (Auto) 0.4 % 01/09/22 15:50 Neut # (Auto) 5.99 10^3/uL (1.8-7.7) 01/09/22 15:50 Lymph # (Auto) 1.6 10^3/uL (0.8-4.8) 01/09/22 15:50 Atkinson # (Auto) 0.5 10^3/uL (0.2-0.9) 01/09/22 15:50 Eos # (Auto) 0.1 10^3/uL (0.0-0.8) 01/09/22 15:50 Baso # (Auto) 0.0 10^3/uL (0.0-0.1) 01/09/22 15:50 Nucleated RBC % (auto) 0 % 01/09/22 15:50 Nucleated RBCs # 0.0 /100WBC 01/09/22 15:50 Sodium 135 mmol/L (136-145) L 01/09/22 15:50 Potassium 4.3 mmol/L (3.5-5.1) 01/09/22 15:50 Chloride 100 mmol/L (98-107) 01/09/22 15:50 Carbon Dioxide 25 mmol/L (22-29) 01/09/22 15:50 Anion Gap 14.3 (5-19) 01/09/22 15:50 BUN 10 mg/dL (6-20) 01/09/22 15:50 Creatinine 0.7 mg/dL (0.7-1.2) 01/09/22 15:50 GFR Calculation 138.6 mL/min (90-130) H 01/09/22 15:50 Glucose 91 mg/dL (65-115) 01/09/22 15:50 Calculated Osmolality 279 mOsm/kg (285-295) L 01/09/22 15:50 Calcium 9.9 mg/dL (8.5-10.5) 01/09/22 15:50 Total Bilirubin 0.2 mg/dL (0.15-1.2) 01/09/22 15:50 AST 19 U/L (0-40) 01/09/22 15:50 ALT 30 U/L (0-41) 01/09/22 15:50 Alkaline Phosphatase 94 IU/L (40-130) 01/09/22 15:50 Total Protein 7.8 g/dL (6.6-8.7) 01/09/22 15:50 Albumin 4.3 g/dL (3.5-5.2) 01/09/22 15:50 Globulin 3.5 g/dL (1.3-4.6) 01/09/22 15:50 TSH 1.60 uIU/mL (0.27-4.20) 01/09/22 15:50 Salicylates < 0.3 mg/dL (3-10) L 01/09/22 15:50 Urine Opiates Screen Negative ng/mL (Negative) 01/09/22 15:50 Acetaminophen < 5.0 ug/mL (10-30) L 01/09/22 15:50 Ur Barbiturates Screen Negative ng/mL (Negative) 01/09/22 15:50 Ur Phencyclidine Scrn Negative ng/mL (Negative) 01/09/22 15:50 Ur Amphetamines Screen Negative ng/mL (Negative) 01/09/22 15:50 U Benzodiazepines Scrn Negative ng/mL (Negative) 01/09/22 15:50 Urine Cocaine Screen Negative ng/mL (Negative) 01/09/22 15:50 U Marijuana (THC) Screen Positive ng/mL (Negative) H 01/09/22 15:50 Ethyl Alcohol < 10 mg/dL (0-10) 01/09/22 15:50 Coronavirus 229E (PCR) Not detected (NOT DETECT) 01/09/22 19:55 SARS-CoV-2 (PCR) Not detected (NOT DETECT) 01/09/22 19:55 Discharge Plan Discharge Patient Disposition: Xfer Psychiatric Hosp Clinical Impression: Suicidal ideation, Generalized anxiety disorder Condition: Stable Coding Level of Care Code ED Asphalt Screed Operator for Eric Fwd Exam Comprehensive
[2022-01-09 16:10] LABS: Basophils % 0.4 %; Eosinophils # 0.1 10^3/uL (0.0-0.8); Eosinophils % 0.8 %; Hematocrit 42.5 % (42.0-52.0); Lymphocytes # 1.6 10^3/uL (0.8-4.8); Lymphocytes % 19.5 %; Mean Corpuscular HGB Conc 32.9 g/dL (30.0-36.0); Mean Corpuscular Hemoglobin 28.5 pg (28.0-34.0); Mean Corpuscular Volume 86.4 fl (80-94); Mean Platelet Volume 10.8 fL (7.4-10.4); Monocytes # 0.5 10^3/uL (0.2-0.9); Monocytes % 6.3 %; Neutrophils # 5.99 10^3/uL (1.8-7.7); Neutrophils % 72.4 %; Nucleated Red Blood Cells % 0 %; Platelet Count 250 10^3/cmm (130-400); Red Blood Count 4.92 10^6/uL (4.1-5.3); White Blood Count 8.3 10^3/uL (4.0-10.0)
[2022-01-09 16:59] LABS: Alanine Aminotransferase 30 U/L (0-41); Albumin Level 4.3 g/dL (3.5-5.2); Alkaline Phosphatase 94 IU/L (40-130); Anion Gap 14.3 (5-19); Aspartate Amino Transferase 19 U/L (0-40); Blood Urea Nitrogen 10 mg/dL (6-20); Calcium 9.9 mg/dL (8.5-10.5); Carbon Dioxide 25 mmol/L (22-29); Chloride 100 mmol/L (98-107); Globulin 3.5 g/dL (1.3-4.6); Glomerular Filtration Rate 138.6 mL/min (90-130); Glucose 91 mg/dL (65-115); Osmolality Calculated 279 mOsm/kg (285-295); Potassium 4.3 mmol/L (3.5-5.1); Sodium 135 mmol/L (136-145); Total Bilirubin 0.2 mg/dL (0.15-1.2); Total Protein 7.8 g/dL (6.6-8.7)
[2022-01-09 17:00] LABS: Acetaminophen < 5.0 ug/mL (10-30); Alcohol Level < 10 mg/dL (0-10); Salicylate < 0.3 mg/dL (3-10)
[2022-01-09 17:35] LABS: Amphetamines Screen Urine Negative (Negative); Barbiturates Screen Urine Negative (Negative); Benzodiazepines Screen Urine Negative (Negative); Cocaine Screen Urine Negative (Negative); Opiate Screen Urine Negative (Negative); PCP Screen Urine Negative (Negative); THC Screen Urine Positive (Negative)
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
--- NOTE | 2022-01-09 19:28 | PC.NURSE ---
Pt voiced the desire to transfer to another facility. He would like to not be admitted to this [facility] unit. Dr Morelnad updated and at bedside talking with pt. [facility] notified of admit cancellation.
--- NOTE | 2022-01-09 19:47 | PC.NURSE ---
Pt given sandwhich and soda to drink.
[2022-01-09 22:49] LABS: Adenovirus Not Detected (NOT DETECT); Chlamydia Pneumoniae Not Detected (NOT DETECT); Coronavirus 229E,HKU1,NL63,OC4 Not Detected (NOT DETECT); Human Metapneumovirus Not Detected (NOT DETECT); Human Rhinovirus/Enterovirus Not Detected (NOT DETECT); Influenza A Not Detected (NOT DETECT); Influenza A H1 Not Detected (NOT DETECT); Influenza A H1-2009 Not Detected (NOT DETECT); Influenza A H3 Not Detected (NOT DETECT); Influenza B Not Detected (NOT DETECT); Mycoplasma Pneumoniae Not Detected (NOT DETECT); Parainfluenza Virus Type 1 Not Detected (NOT DETECT); Parainfluenza Virus Type 2 Not Detected (NOT DETECT); Parainfluenza Virus Type 3 Not Detected (NOT DETECT); Parainfluenza Virus Type 4 Not Detected (NOT DETECT); Respiratory Syncytial Virus A Not Detected (NOT DETECT); Respiratory Syncytial Virus B Not Detected (NOT DETECT); SARS-COV-2 Not Detected (NOT DETECT)
[2022-01-10 03:00] VITALS: BP 121/42; PULSE 56; RESP 16; O2SAT 96
[2022-01-10 03:30] VITALS: BP 135/57; PULSE 51; RESP 16; O2SAT 98
[2022-01-10 04:00] VITALS: BP 135/58; PULSE 48; RESP 16; O2SAT 95
--- NOTE | 2022-01-10 04:18 | PC.NURSE ---
IV removed without diff. Pt sleeping but arouses easily. Pt holding in the ER for placement
[2022-01-10 05:30] VITALS: BP 156/79; PULSE 50; RESP 16; O2SAT 93
[2022-01-10 06:00] VITALS: BP 122/40; PULSE 67; RESP 16; O2SAT 97
--- NOTE | 2022-01-10 06:14 | PC.NURSE ---
Report called to Jyoti CALLEJAS at [facility]
== END 2022-01-10 07:22 ==
LOC: ER 18:06 → NP 19:28 → ER 23:30
PROVIDERS: Emergency Medicine; Emergency Provider Emergency Medicine
DX: R45.851 Suicidal ideations (principal); F41.1 Generalized anxiety disorder; F33.2 Major depressive disorder, recurrent severe without psychotic features; F17.290 Nicotine dependence, other tobacco product, uncomplicated
CPT/HCPCS: 80053; 80306; 80307; 84443; 85025; 87635; 99285

== ENCOUNTER 2022-12-05 05:11 | Inpatient (IN) | payer MEDICAID, SELFPAY ==
[2021-09-25 16:09] VITALS: BMI 39.9
[2022-12-05 05:18] VITALS: BP 153/85; PULSE 95; RESP 18; TEMP 36.6; O2SAT 99; BMI 34.7
--- NOTE | 2022-12-05 05:22 | ED.C_ITS ---
HPI - Psych General: Chief Complaint: Psychiatric Symptoms Stated Complaint: SI Time Seen by Provider: 12/05/22 05:13 Source: patient Mode of arrival: ambulatory Limitations: no limitations History of Present Illness: 27-year-old male has history of schizophrenia along with depression and bipolar disorder he states that over the last few days he been having increased hallucinations along with suicidal ideations he states he has not been taking his meds he supposed be on risperidone he has not been t aking them. He denies any worsening improving factors at this time. Associated symptoms: Reports depression Review of Systems Const: Denies: fever(s), chills, body aches or change in appetite Eyes: Denies: blurry vision or eye discomfort ENMT: Denies: throat pain or dental pain Card: Denies: chest pain Resp: Denies: dyspnea GI: Denies: abdominal pain, nausea, vomiting or diarrhea : Denies: dysuria Musc: Denies: neck pain or back pain Skin/Breast: Denies: rash Neuro: Denies: headache(s) Psych: Reports: depression and paranoia Adama/Lymph: Denies: easy bruising All/Imm: Denies: urticaria PFSH ED PFSH: Medical History Major depressive disorder, recurrent severe without psychotic features Psychiatric care Social History Smoking and tobacco status: current every day smoker e-cigarettes E-Cigarette Details: vaporizer device and with nicotine E-cig/vape details: 5 mg/Day Quit status (tobacco): considering quitting Second hand smoke exposure: No Current gender identity: Male Physical Exam Const: COMMON NORMALS: no acute distress, patient oriented x3 and healthy appearing HENMT: COMMON NORMALS: normocephalic and atraumatic HEAD & SCALP: normocephalic and atraumatic Eye: COMMON NORMALS: Equal, round and reactive pupils present and EOMs intact bilaterally PUPIL: Yes Equal, round and reactive pupils present Neck/C-Spine: COMMON NORMALS: full ROM and supple Chest: COMMONS NORMALS: normal inspection of the chest and normal palpation of entire chest wall Resp: COMMON NORMALS: normal respiratory effort, No retractions, No use of accessory muscles and clear to auscultation bilaterally AUSCULTATION: clear to auscultation bilaterally Cardio: COMMON NORMALS: regular rate, regular rhythm and No murmurs present (Cardio) RATE: regular rate RHYTHM: regular rhythm GI: COMMON NORMALS: Normal to inspection, nondistended, normoactive bowel sounds present, Soft to palpation, non-tender and no masses PALPATION: Yes Soft to palpation Extremity: COMMON NORMALS: normal to inspection and full ROM Neuro: COMMON NORMALS: patient oriented x3, moves all extremities and no focal motor deficits Psych: COMMON NORMALS: mental status grossly normal, Normal thought process present and cooperative THOUGHT PROCESS: Normal thought process present Skin: COMMON NORMALS: no rashes or lesions noted and no wounds GENERAL SKIN EXAM: no rashes or lesions noted Course Vital Signs: Vital signs: Vital Signs Temperature 98 F 12/05/22 05:18 Pulse Rate 95 12/05/22 05:18 Respiratory Rate 18 12/05/22 05:18 Blood Pressure 153/85 12/05/22 05:18 Pulse Oximetry 99 12/05/22 05:18 [facility] - Psych Medical Decision Making Patient presents here with suicidal ideations along with hallucinations did place under 96-hour hold I spoke to the psychiatrist and will admit at this time. Lab Data 12/05/22 05:33 12/05/22 05:33 Discharge Plan Discharge Patient Disposition: Admitted As Inpatient Clinical Impression: Suicidal ideation Condition: Stable Coding Level of Care Code ED Desktop Support Consultant for Eric Glover
[2022-12-05 05:43] LABS: Basophils % 0.3 %; Eosinophils # 0.1 10^3/uL (0.0-0.8); Eosinophils % 1.1 %; Hematocrit 42.6 % (42.0-52.0); Hemoglobin 14.1 g/dL (11.7-16.6); Lymphocytes # 1.9 10^3/uL (0.8-4.8); Lymphocytes % 25.6 %; Mean Corpuscular HGB Conc 33.1 g/dL (30.0-36.0); Mean Corpuscular Hemoglobin 28.7 pg (28.0-34.0); Mean Corpuscular Volume 86.6 fl (80-94); Mean Platelet Volume 10.9 fL (7.4-10.4); Monocytes # 0.5 10^3/uL (0.2-0.9); Monocytes % 6.8 %; Neutrophils # 4.76 10^3/uL (1.8-7.7); Neutrophils % 65.9 %; Nucleated Red Blood Cells % 0 %; Platelet Count 184 10^3/cmm (130-400); Red Blood Count 4.92 10^6/uL (4.1-5.3); Red Cell Distribution Width 12.5 % (12.1-15.1); White Blood Count 7.2 10^3/uL (4.0-10.0)
[2022-12-05 05:58] LABS: Amphetamines Screen Urine Negative (Negative); Barbiturates Screen Urine Negative (Negative); Benzodiazepines Screen Urine Negative (Negative); Cocaine Screen Urine Negative (Negative); Opiate Screen Urine Negative (Negative); PCP Screen Urine Negative (Negative); THC Screen Urine Positive (Negative)
--- NOTE | 2022-12-05 05:59 | PC.NURSE ---
96 Hour Hold Rights read to patient & a copy of the same given to him. Patient acknowledges understanding of the same and questions were answered to his satisfaction.
[2022-12-05 06:08] LABS: Alanine Aminotransferase 23 U/L (0-41); Albumin Level 4.2 g/dL (3.5-5.2); Alkaline Phosphatase 84 U/L (40-130); Anion Gap 16.5 (5-19); Aspartate Amino Transferase 20 U/L (0-40); Blood Urea Nitrogen 6 mg/dL (6-20); Calcium 10.1 mg/dL (8.5-10.5); Carbon Dioxide 25 mmol/L (22-29); Chloride 103 mmol/L (98-107); Globulin 3.1 g/dL (1.3-4.6); Glomerular Filtration Rate 137.4 mL/min (90-130); Glucose 93 mg/dL (65-115); Osmolality Calculated 289 mOsm/kg (285-295); Potassium 3.5 mmol/L (3.5-5.1); Sodium 141 mmol/L (136-145); Total Bilirubin 0.2 mg/dL (0.15-1.2); Total Protein 7.3 g/dL (6.6-8.7)
[2022-12-05 06:19] LABS: Acetaminophen < 5.0 ug/mL (10-30); Alcohol Level < 10 mg/dL (0-10); Salicylate < 0.3 mg/dL (3-10)
--- NOTE | 2022-12-05 07:00 | PC.NURSE ---
WHILE AT [facility] PT IS AWAKE ALERT AND ANSWERING QUESTIONS APPROPRIATELY. PT REQUESTING NICORITE GUM.
[2022-12-05] MEDS: nicotine 2 mg Gum BUCCAL (07:53)
[2022-12-05 11:04] VITALS: BP 118/75; PULSE 63; RESP 18; O2SAT 97
--- NOTE | 2022-12-05 12:32 | PC.NURSE ---
REPORT GIVEN TO RADHA CALLEJAS.
[2022-12-05 14:00] VITALS: BP 130/74; PULSE 78; RESP 20; TEMP 36.6; O2SAT 98
[2022-12-05 22:00] VITALS: BP 123/71; PULSE 68; RESP 15; TEMP 36.9; O2SAT 95
[2022-12-06 06:00] VITALS: BP 110/73; PULSE 55; RESP 17; TEMP 36.6; O2SAT 96
[2022-12-06] MEDS: OXcarbazepine 300 mg Tablet PO ×2 (09:39→20:30)
[2022-12-06] MEDS: fluoxetine 20 mg Capsule PO (09:39)
[2022-12-06] MEDS: risperiDONE 1 mg Tablet PO ×2 (09:40→20:30)
--- NOTE | 2022-12-06 09:46 | P.NPUHP_ITS ---
Providers/Chief Complaint Admitting Physician: Timur Huntley MD Chief Complaint: SI HPI NPU History of Present Illness Braulio Terrazas is a 27 year old male who presented to the emergency department with the following report: Chief Complaint: Psychiatric Symptoms Stated Complaint: SI Time Seen by Provider: 12/05/22 05:13 Source: patient Mode of arrival: ambulatory Limitations: no limitations History of Present Illness: 27-year-old male has history of schizophrenia along with depression and bipolar disorder he states that over the last few days he been having increased hallucinations along with suicidal ideations he states he has not been taking his meds he supposed be on risperidone he has not been taking them. He denies any worsening improving factors at this time. Associated symptoms: Reports depression He was admitted to the neuropsychiatric unit for definitive treatment of those issues. He presents fairly focused on his somewhat hyper mandaen, conspiratorial delusions making it hard for him to stay on task and normal question and answering situations. What we were able to glean from the conversation is that he has been hospitalized recently in another hospital in the past 2 to 4 weeks but that he currently has no medications and has not been taking medication. He is reportedly homeless now and has not been able to really meet his needs because he is stuck in a shed possibly on his family's property or having no place to stay but certainly without stability that would allow him to get his mental health issues back on track. In excerpt of his past hospitalization in 2020 is included below for context. His drug screen was only positive for cannabis. We discussed the risk benefits and alternatives of reviewing his medications and restarting some of the medications at appropriate initiation doses and he understood and agreed to proceed as it is documented in this note. Per his 09/17/2021 [facility] inpatient psychiatric discharge summary: Discharge Diagnosis (1) Acute psychosis: Status: Resolved (2) Suicidal ideation: Status: Resolved (3) Major depressive disorder, recurrent, severe with psychotic symptoms: Status: Acute (4) Cannabis use disorder, moderate, in early remission, dependence: Status: Acute (5) Moderate alcohol dependence: Status: Acute (6) Inhalant use disorder, moderate, in sustained remission, dependence: Status: Deleted (7) Nicotine dependence, unspecified, uncomplicated: Status: Acute (8) Cluster A personality disorder in adult: Status: Acute (9) Generalized anxiety disorder: Status: Acute Reason for Visit Reason for Visit: SI Brief History: History of Present Illness Braulio Terrazas is a 26 year old male who presented to the emergency department with the following report: Chief Complaint: Psychiatric Symptoms Stated Complaint: SI Time Seen by Provider: 09/14/21 19:09 History of Present Illness: MD complaint: suicidal ideation and feels depressed Onset (ago): day(s) Duration: constant and getting worse History of same: Yes Relieving factors: none Exacerbating factors: none Associated psychiatric symptoms: depression and suicidal ideation Associated symptoms: Reports auditory hallucinations, delusions and suicidal ideation; Deny homicidal ideation If self harm: admits thoughts of self harm and has plan. He was admitted to the neuropsychiatric unit for definitive treatment of those issues. Patient has recently been discharged from the unit and at that time there were concerns about his readiness for discharge. He presents today discussing that there are things that we discussed again interplay. The fragility of his living arrangements led to him moving out, getting kicked out, breaking up with his girlfriend and then reconnecting with her creating emotional turmoil and homelessness. He presented reporting that he started having thoughts to hurt himself/kill himself but denies any new issues outside of the lingering and psychosocial challenges that were part of our concerns about his stability during the last admission. Risk-benefit terms of maintaining his medication at the current doses given that he just changed them in the past week. And he understood agreed receipt as documented in his note. Given the no substantive changes and H&P from a little over a week ago an excerpt from that note is included below for context. Per his 09/05/2021 [facility] inpatient psychiatric evaluation: History of Present Illness Braulio Terrazas is a 26 year old male presented to the emergency department with the following report: Chief Complaint: Psychiatric Symptoms Stated Complaint: SI W/PLAN Time Seen by Provider: 09/04/21 16:21 History of Present Illness: HPI Narrative: Ms Terrazas is a 26-year-old g entleman with history of depression who presents to the emergency department with depression with suicidal ideation. He reports symptoms have been worse over the past month or so without specific exacerbating factors. He describes near constant intrusive thoughts of suicide and actively having to make decisions not to kill himself. His plan is to shoot himself and he does have access to firearms. He misses doses of medication every so often and has been out of his Risperdal for the past 3 days. He denies acute medical complaints. Overall the course of symptoms has been worsening. He has been hospitalized previously for psychiatric reasons though nothing recently. No other specific exacerbating or alleviating factors noted. He was admitted to the neuropsychiatric unit for definitive treatment of those issues. He presents today reporting that things have not changed that much sin ce last time he was in the hospital. He mainly reported that he was now living [place] his girlfriend and their family. Which initially was a positive to be away from his family but recently has turned negative. He reports the main stressor in the home is that he is currently not working and his girlfriend's mother says disparaging things about him behind his back to his girlfriend which has created some contention. Additionally stressed out by his mother's cancer diagnosis, is bank account being empty, and feeling like no matter how hard he works on his mental health and other factors he always ends up at the same place which he reports has created significant despair. He reports that he does not know if we cannot get some stability whether he will be able to avoid killing himself. He discussed a situation where his significant other made him very angry that he is unclear why he did just turn into traffic. We discussed the risk benefits and alternatives of increasing his Prozac to 40 mg p.o. every morning and he understood agreed to proceed as is documented in his note. Reviewed his other medications which appear to be helping. He denies any other substantive changes in his life and an excerpt of his outpatient psychiatric evaluation is included below for context. We discussed seeing whether he had presented to the emergency department enough to get connected with the [facility] program but also discussed the possibility of getting him connected with [employer] action. Per his 12/13/2020 [facility] outpatient psychiatric evaluation: [facility] History and Physical Time In: 09:20 Time Out: 10:15 Chief Complaint: I need to get back on medications History of Present Illness: This is a 25-year-old male who is been diagnosed with various diagnoses in the past including schizoaffective disorder, polysubstance use including marijuana, alcohol, nicotine, inhalants, and other substances, in addition to depression and anxiety, and cluster a personality traits. Today he describes a history that certainly consistent with schizoid and schizotypal personality traits and that he has a coping style centered around fantasy world including imaginative but also books and films, but his more recent presentation in the last few years have presented with some paranoid ideations and auditory hallucinations at times but she certainly has good insight into, and may have been exacerbated by continuous drug use including huffing gas starting around age 89 years old, the last time was 2 years ago, heavy alcohol use and marijuana use all of which started very young, alcohol starting at age 12, nicotine starting by age 79 years old, marijuana starting by age [age] years old. Today after discussing his past history and reviewing his to psychiatric admissions that both happened in 2019, I feel that the cluster B personality traits along with anxiety and depression are the most applicable in addition to the substance use. I believe that any psychotic symptoms he had were exacerbated by substance there is no doubt he does have schizoid and schizotypal personality traits. Question of trauma history is also come up and he tells me that he does not have much memory of his childhood, but this sounds as if it is more related to his chronic coughing of gasoline and marijuana use and other substances other than a dissociation process. There does not seem to be a history of severe physical or sexual abuse or even domestic violence but he says he was bullied severely by his brothers and his father was an angry alcoholic and yelled a lot. The patient remembers having depression and suicidal thoughts even in elementary school as a result of the bullying from his older brothers. He tells me that he got so bad that he ended up being a bully himself for a few years. There is no active suicidal thoughts, there is no actual history of suicide attempts, but he has had some cutting superficially for self-harm and in addition he says he often peeled back his fingernails and toenails as a form self-harm the last time this happened was 3 weeks ago. During the session today he does not appear internally preoccupied but he is a little oddly related consistent with a cluster a personality. He is denying active hallucinations at this time but he does when to get back on the Risperdal saying that it helped him with stabilizing his mood but he is unsure if it helped with hallucinations. He does say that the hallucinations were less sinister and had less energy while on medications. History Past Psychiatric History: 2 psychiatric admissions in 2019 were his only admissions and they were each for about a week with suicidal ideations in the context of substance use. Denies actual suicide attempts, has had self-harm in the form of cutting and peeling back to his nails. Family History: Father had depression and alcoholism, a brother could possibly be bipolar, Past Medical History: Denies current medical issues. Substance Use History: Inhalants: Started age 89 years old huffing gasoline, he still coughs on occasion and last used 2 years ago at age 23 which is a little late for puffers as they tend to stop in their teenage years. Alcohol: Started age [age] years old, for a few years he was drinking a 12 pack a day, now he drinks 6 or 7 beers once a week and a few beers on other nights. Marijuana: Started age [age] years old has been a consistent user periods in his life Nicotine: Currently up 3 to 5 mg a day, started smoking cigarettes when he picked him up from his mother's ashtray at age 79 years old. Other: He says he has used other pills in the past including some opiates, muscle relaxers, amphetamines but nothing consistent. Social History: He denies ever being or ever having kids. He did graduate high school in [place], he is currently trying to go to college. Hospital Course Hospital Course He quickly acclimated to the individual, group and milieu therapies provided. We added some trazodone to assist sleep and work with him along with the treatment team to begin the process of getting some independent functioning and not returning to these less than sufficient living arrangements that follow heart quickly. He had modest improvement but endorsed a plan to work on the necessary pieces for greater independence and contract for safety outside the hospital prior to discharge. During the hospitalization, patient had routine laboratory studies which were within normal limits except for few outliers. Additionally there was a general medical evaluation which was also within normal limits and revealed no new acute processes. Discharge Summary: At the time of discharge, he denied psychosis or lethality. Mood and anxiety we re well managed. Patient endorsed a plan to avoid all drugs of abuse and follow-up with the aftercare recommendations of the treatment team. Patient was evaluated and deemed to be absent credible lethality, and had achieved the maximum benefit from an inpatient hospitalization, so was discharged. Meds NPU Home Medications Medication Instructions Recorded Confirmed Last Taken Type fluoxetine 20 mg capsule (Prozac) 20 mg PO DAILY 12/06/22 12/06/22 Unknown History oxcarbazepine 300 mg tablet 300 mg PO 2XD 12/06/22 12/06/22 Unknown History (Trileptal) prazosin 1 mg capsule (Minipress) 3 mg PO BEDTIME 12/06/22 12/06/22 Unknown History quetiapine 100 mg tablet (Seroquel) 100 mg PO BEDTIME 12/06/22 12/06/22 Unknown History risperidone 1 mg tablet (Risperdal) 1 mg PO 2XD 12/06/22 12/06/22 Unknown Histor y Allergies Allergy/AdvReac Type Severity Reaction Status Date / Time No Known Allergies Allergy Verified 12/05/22 07:21 PFS NPU PFSH: Medical History Major depressive disorder, recurrent severe without psychotic features Psychiatric care Social History Smoking and tobacco status: current every day smoker e-cigarettes E-Cigarette Details: vaporizer device and with nicotine E-cig/vape details: 5 mg/Day Quit status (tobacco): considering quitting Second hand smoke exposure: No Current gender identity: Male Mental Status Exam MSE Comments: This is an obese white male in hospital scrubs with limited grooming and eye contact. No abnormal movements except for mild psychomotor retardation. Cooperative with exam in no acute distress. Speech was increased rate and normal volume. Mood described as depressed, affect congruent. Thought process organized. Thought content: Patient endorsed some suicidal but denied homicidal ideations, there were no delusions reported but some paranoid or persecutory possibly hyperreligious delusions noted, he denied any visual hallucinations but endorses auditory hallucinations. Attention, concentration and memory appear intact but were not formally tested. He is alert and oriented x3. Insight, judgment and impulse control impaired. 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 1.? Continue current medication. 2.? Continue every 15 minute checks for safety. 3.? Encourage individual, group and milieu therapies. 4.? Encourage sober living treatment after discharge at the highest level of care to which he is willing to commit. 5.? Work with treatment team to explore what resources including case management he can be connected with. Involuntary Hold Information 96 Hour Hold: 96 Hour Involuntary Admission: Yes 96 Hour Hold Ending Date: 12/11/22 96 Hour Hold Ending Time: 05:28 Attestations NPU Medical Necessity Statement*: Inpatient hospitalization is medically necessary and the clinically appropriate intervention at this time. We will monitor medi cation to make changes as indicated.? He will be in the hospital for over 2 midnights.? Likely length of stay 3 to 5 days. Coding Level of Care Code Acute Code for Chg Fwd Diagnoses Suicidal ideation R45.851 Major depressive disorder, recurrent, severe with psychotic symptoms F33.3 Cannabis use disorder, moderate, in early remission, dependence F12.21 Nicotine dependence, unspecified, uncomplicated F17.200 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
--- NOTE | 2022-12-06 10:47 | PC.OT ---
OT Michelle Attempted - Patient asleep during time of evaluation, asked to come back at a later time. Will attempt again tomorrow.
[2022-12-06] MEDS: nicotine 2 mg Gum BUCCAL ×2 (13:13→20:33)
[2022-12-06 14:00] VITALS: BP 100/53; PULSE 91; RESP 18; TEMP 36.7; O2SAT 94
[2022-12-06 20:25] VITALS: BP 147/81; PULSE 82; RESP 18; TEMP 36.9; O2SAT 95
[2022-12-06] MEDS: prazosin 1 mg Capsule 3 MG PO (20:30)
[2022-12-06] MEDS: quetiapine 100 mg Tablet PO (20:30)
[2022-12-07 05:52] VITALS: BP 125/77; PULSE 71; RESP 18; TEMP 36.3; O2SAT 95
[2022-12-07] MEDS: fluoxetine 20 mg Capsule PO (09:57)
[2022-12-07] MEDS: OXcarbazepine 300 mg Tablet PO ×2 (09:57→20:57)
[2022-12-07] MEDS: risperiDONE 1 mg Tablet PO ×2 (09:57→20:57)
[2022-12-07 13:41] VITALS: BP 145/73; PULSE 61; RESP 17; TEMP 36.4; O2SAT 98
--- NOTE | 2022-12-07 14:28 | W.PM.NPUPNS ---
Subjective NPU Subjective: Patient presented today reporting that he had not taken very before and that he just took it until he ran out. We discussed the desire for him to be on a long-acting injectable and that Invega has significant success and is in the same vein as the Risperdal. We discussed the risks, benefits and alternatives of starting the Invega and discontinued the Risperdal and he understood and agreed to proceed as documented in this note. Mental Status Exam MSE Comments: This is an obese white male in hospital scrubs with limited grooming and eye contact. No abnormal movements except for mild psychomotor retardation. Cooperative with exam in no acute distress. Speech was increased rate and normal volume. Mood described as okay, affect congruent and subdued. Thought process organized. Thought content: Patient endorsed some suicidal but denied homicidal ideations, there were no delusions reported but some paranoid or persecutory possibly hyperreligious delusions noted, he denied any visual hallucinations but endorses auditory hallucinations. Attention, concentration and memory appear intact but were not formally tested. He is alert and oriented x3. Insight, judgment and impulse control impaired. 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 1.? Continue current medication. Start Invega 6 mg p.o. every morning and discontinue Risperdal. 2.? Continue every 15 minute checks for safety. 3.? Encourage individual, group and milieu therapies. 4.? Encourage sober living treatment after discharge at the highest level of care to which he is willing to commit. 5.? Work with treatment team to explore what resources including case management he can be connected with. Involuntary Hold Information 96 Hour Hold: 96 Hour Involuntary Admission: Yes 96 Hour Hold Ending Date: 12/11/22 96 Hour Hold Ending Time: 05:28 Attestations NPU Medical Necessity Statement*: Inpatient hospitalization is medically necessary and the clinically appropriate intervention at this time. We will monitor medication to make changes as indicated.? Likely length of stay 3 to 5 days. Coding Level of Care Code Acute Code for g Fwd Diagnoses Suicidal ideation R45.851 Major depressive disorder, recurrent, severe with psychotic symptoms F33.3 Cannabis use disorder, moderate, in early remission, dependence F12.21 Nicotine dependence, unspecified, uncomplicated F17.200 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
[2022-12-07 19:40] VITALS: BP 132/79; PULSE 94; RESP 18; TEMP 37.1; O2SAT 96
[2022-12-07] MEDS: nicotine 2 mg Gum BUCCAL (20:27)
[2022-12-07] MEDS: prazosin 1 mg Capsule 3 MG PO (20:55)
[2022-12-07] MEDS: quetiapine 100 mg Tablet PO (20:57)
--- NOTE | 2022-12-07 21:30 | PC.NURSE ---
Patient requested medication for c/o anxiety. Rated a /. PRN vistaril given as ordered. Also discussed coping skills and relaxation techniques. Patient stated he would try and relax in room.
[2022-12-07] MEDS: hyDROXYzine 25 mg Capsule 50 MG PO (21:31)
--- NOTE | 2022-12-08 03:42 | PC.NURSE ---
Patient has not had any further c/o anxiety and has been resting quietly in bed with eyes closed during night. No signs of distress present.
[2022-12-08 06:00] VITALS: BP 107/52; PULSE 63; RESP 16; TEMP 36.6; O2SAT 96
[2022-12-08] MEDS: paliperidone ER 6 mg Tablet PO (08:31)
[2022-12-08] MEDS: fluoxetine 20 mg Capsule PO (08:31)
[2022-12-08] MEDS: OXcarbazepine 300 mg Tablet PO ×2 (08:32→19:51)
--- NOTE | 2022-12-08 11:49 | W.PM.NPUPNS ---
Subjective NPU Subjective: Patient presented today reporting that he is feeling a little better. Specifically less feelings of anger and irritability, and feeling calmer. He reports he is tolerating the changeover from the Risperdal to the Invega. He denies any side effects. We continue to discuss the ultimate plan of starting the Invega Sustenna for better adherence. We discussed the risk benefits and alternatives of that plan and he understood and agreed to proceed as is documented in this note. Mental Status Exam MSE Comments: This is an obese white male in hospital scrubs with limited grooming and eye contact. No abnormal movements except for mild psychomotor retardation. Cooperative with exam in no acute distress. Speech was increased rate and normal volume. Mood described as feeling a little better, affect congruent and subdued. Thought process organized. Thought content: Patient endorsed some suicidal but denied homicidal ideations, there were no delusions reported but some paranoid or persecutory possibly hyperreligious delusions noted, he denied any visual hallucinations but endorses auditory hallucinations. Attention, concentration and memory appear intact but were not formally tested. He is alert and oriented x3. Insight and judgment improving and impulse control impaired. 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 1.? Continue current medication. Started Invega 6 mg p.o. every morning and discontinued Risperdal. Plan for switching to Invega Sustenna after established tolerance. 2.? Continue every 15 minute checks for safety. 3.? Encourage individual, group and milieu therapies. 4.? Encourage sober living treatment after discharge at the highest level of care to which he is willing to commit. 5.? Work with treatment team to explore what resources including case management he can be connected with. Involuntary Hold Information 96 Hour Hold: 96 Hour Involuntary Admission: Yes 96 Hour Hold Ending Date: 12/11/22 96 Hour Hold Ending Time: 05:28 Attestations NPU Medical Necessity Statement*: Inpatient hospitalization is medically necessary and the clinically appropriate intervention at this time. We will monitor medication to make changes as indicated.? Likely length of stay 3 to 5 days. Coding Level of Care Code Acute Code for [facility] Fwd Diagnoses Suicidal ideation R45.851 Major depressive disorder, recurrent, severe with psychotic symptoms F33.3 Cannabis use disorder, moderate, in early remission, dependence F12.21 Nicotine dependence, unspecified, uncomplicated F17.200 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
[2022-12-08] MEDS: nicotine 2 mg Gum BUCCAL (13:02)
[2022-12-08 14:00] VITALS: BP 128/85; PULSE 95; RESP 16; TEMP 36.6; O2SAT 95
[2022-12-08] MEDS: hyDROXYzine 25 mg Capsule 50 MG PO (19:06)
[2022-12-08] MEDS: prazosin 1 mg Capsule 3 MG PO (19:51)
[2022-12-08] MEDS: quetiapine 100 mg Tablet PO (19:52)
[2022-12-08 21:02] VITALS: BP 127/79; PULSE 93; RESP 17; TEMP 36.8; O2SAT 93
[2022-12-09 06:00] VITALS: BP 120/75; PULSE 97; RESP 17; TEMP 37.2; O2SAT 94
[2022-12-09] MEDS: OXcarbazepine 300 mg Tablet PO ×2 (09:37→19:28)
[2022-12-09] MEDS: paliperidone ER 6 mg Tablet PO (09:37)
[2022-12-09] MEDS: fluoxetine 20 mg Capsule PO (09:37)
--- NOTE | 2022-12-09 11:29 | P.NPUPN_ITS ---
Subjective NPU Subjective: Patient presented today reporting that he is starting to feel some improvement. He reports that he has been working with the social work team and that they have discussed the possibility of going to a nursing home. We discussed the risks, benefits and alternatives of starting the Invega injection tomorrow, and he understood and agreed to proceed as is documented in this note. Mental Status Exam MSE Comments: This is an obese white male in hospital scrubs with limited grooming and eye contact. No abnormal movements except for mild psychomotor retardation. Cooperative with exam in no acute distress. Speech was increased rate and normal volume. Mood described as feeling a little better, affect congruent and subdued. Thought process organized. Thought content: Patient endorsed some suicidal but denied homicidal ideations, there were no delusions reported but some paranoid or persecutory possibly hyperreligious delusions noted, he denied any visual hallucinations but endorses auditory hallucinations. Attention, concentration and memory appear intact but were not formally tested. He is alert and oriented x3. Insight and judgment improving and impulse control impaired. Vitals/I&O/Wt Last Vital Signs Temp 98.9 F 12/09/22 06:00 Pulse 97 12/09/22 06:00 Resp 17 12/09/22 06:00 BP 120/75 12/09/22 06:00 Pulse Ox 94 12/09/22 06:00 O2 Del Method 12/09/22 06:00 Data NPU 12/05/22 05:33 12/05/22 05:33 A&P Assessment and plan (1) Suicidal ideation: (2) Major depressive disorder, recurrent, severe with psychotic symptoms: (3) Cannabis use disorder, moderate, in early remission, dependence: (4) Nicotine dependence, unspecified, uncomplicated: (5) Cluster A personality disorder in adult: (6) Generalized anxiety disorder: Plan This is a 27-year-old white male with known history of depression and addiction who presents over a year since his last admission with reports of increased hallucinations, delusional thinking and unclear adherence to his medication. 1.? Continue current medication. Started Invega 6 mg p.o. every morning and discontinued Risperdal. Will be Invega Sustenna 234 mg IM to deltoid for loading dose tomorrow. 2.? Continue every 15 minute checks for safety. 3.? Encourage individual, group and milieu therapies. 4.? Encourage sober living treatment after discharge at the highest level of care to which he is willing to commit. 5.? Work with treatment team to explore what resources including case management he can be connected with. Involuntary Hold Information 96 Hour Hold: 96 Hour Involuntary Admission: Yes 96 Hour Hold Ending Date: 12/11/22 96 Hour Hold Ending Time: 05:28 Attestations NPU Medical Necessity Statement*: Inpatient hospitalization is medically necessary and the clinically appropriate intervention at this time. We will monitor medication to make changes as indicated.? Likely length of stay 2-4 days. Coding Level of Care Code Acute Code for [facility] Fwd Diagnoses Suicidal ideation R45.851 Major depressive disorder, recurrent, severe with psychotic symptoms F33.3 Cannabis use disorder, moderate, in early remission, dependence F12.21 Nicotine dependence, unspecified, uncomplicated F17.200 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
[2022-12-09 14:00] VITALS: BP 115/83; PULSE 69; RESP 17; TEMP 36.7; O2SAT 97
[2022-12-09] MEDS: nicotine 2 mg Gum BUCCAL ×2 (14:21→19:28)
[2022-12-09] MEDS: OLANZapine 5 mg ODT PO (14:21)
[2022-12-09] MEDS: hyDROXYzine 25 mg Capsule 50 MG PO (15:21)
[2022-12-09] MEDS: prazosin 1 mg Capsule 3 MG PO (19:27)
[2022-12-09] MEDS: quetiapine 100 mg Tablet PO (19:28)
[2022-12-09 21:57] VITALS: BP 139/81; PULSE 80; RESP 16; TEMP 37.2; O2SAT 97
[2022-12-10 06:00] VITALS: BP 96/60; PULSE 102; RESP 18; TEMP 37; O2SAT 96
[2022-12-10] MEDS: OXcarbazepine 300 mg Tablet PO ×2 (09:33→21:06)
[2022-12-10] MEDS: paliperidone ER 6 mg Tablet PO (09:33)
[2022-12-10] MEDS: fluoxetine 20 mg Capsule PO (09:33)
[2022-12-10] MEDS: paliperidone palmitate 234 mg Syringe IM (10:38)
--- NOTE | 2022-12-10 10:40 | PC.NURSE ---
INVEGA 234MG IN THE LEFT DELTOID. PT TOLERATED WELL.
[2022-12-10 14:00] VITALS: BP 143/83; PULSE 70; RESP 18; TEMP 36.9; O2SAT 96
--- NOTE | 2022-12-10 16:11 | P.NPUPN_ITS ---
Subjective NPU Subjective: Patient presented today he feels that the Invega has worked really well. We discussed the risks, benefits and alternatives of starting Invega Sustenna and giving the 234 mg IM loading dose and he understood and agreed to proceed as documented in this note. We discussed may be a day or so of observation after and identifying when [facility] could receive him. Also discussed making sure social work team working on getting him a case management as well for maximum outpatient success. Mental Status Exam MSE Comments: This is an obese white male in hospital scrubs with improved grooming and eye contact. No abnormal movements except for mild psychomotor retardation. Cooperative with exam in no acute distress. Speech was more normal rate and normal volume. Mood described as a little better, affect congruent and less subdued. Thought process organized. Thought content: Patient denied suicidal or homicidal ideations, there were no delusions reported and paranoid, persecutory, and hyperreligious delusions noted, but diminishing, he denied any auditory or visual hallucinations. Attention, concentration and memory appear intact but were not formally tested. He is alert and oriented x3. Insight and judgment improving and impulse control impaired. Vitals/I&O/Wt Last Vital Signs Temp 98.5 F 12/10/22 14:00 Pulse 70 12/10/22 14:00 Resp 18 12/10/22 14:00 BP 143/83 12/10/22 14:00 Pulse Ox 96 12/10/22 14:00 O2 Del Method 12/10/22 06:00 Data NPU 12/05/22 05:33 12/05/22 05:33 A&P Assessment and plan (1) Suicidal ideation: (2) Major depressive disorder, recurrent, severe with psychotic symptoms: (3) Cannabis use disorder, moderate, in early remission, dependence: (4) Nicotine dependence, unspecified, uncomplicated: (5) Cluster A personality disorder in adult: (6) Generalized anxiety disorder: Plan This is a 27-year-old white male with known history of depression and addiction who presents over a year since his last admission with reports of increased hallucinations, delusional thinking and unclear adherence to his medication. 1.? Continue current medication. Started Invega 6 mg p.o. every morning and discontinued Risperdal. We will initiate Invega Sustenna 234 mg IM loading dose to the deltoid. 2.? Continue every 15 minute checks for safety. 3.? Encourage individual, group and milieu therapies. 4.? Encourage sober living treatment after discharge at the highest level of care to which he is willing to commit. 5.? Work with treatment team to explore what resources including case management he can be connected with. Likely discharge in the next 48 hours. Involuntary Hold Information 96 Hour Hold: 96 Hour Involuntary Admission: Yes 96 Hour Hold Ending Date: 12/11/22 96 Hour Hold Ending Time: 05:28 Attestations NPU Medical Necessity Statement*: Inpatient hospitalization is medically necessary and the clinically appropriate intervention at this time. We will monitor medication to make changes as indicated.? Likely length of stay 1-3 days. Coding Level of Care Code Acute Code for [facility] Fwd Diagnoses Suicidal ideation R45.851 Major depressive disorder, recurrent, severe with psychotic symptoms F33.3 Cannabis use disorder, moderate, in early remission, dependence F12.21 Nicotine dependence, unspecified, uncomplicated F17.200 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
[2022-12-10] MEDS: nicotine 2 mg Gum BUCCAL (18:28)
[2022-12-10 21:06] VITALS: BP 136/83; PULSE 87; RESP 16; TEMP 36.7; O2SAT 96
[2022-12-10] MEDS: quetiapine 100 mg Tablet PO (21:06)
[2022-12-10] MEDS: hyDROXYzine 25 mg Capsule 50 MG PO (21:06)
[2022-12-10] MEDS: prazosin 1 mg Capsule 3 MG PO (21:06)
[2022-12-10] MEDS: nicotine 4 mg lozenge MUCOUS MEM (22:01)
--- NOTE | 2022-12-10 23:00 | PC.NURSE ---
Patient had requested Vistaril 50mg PO for anxiety. Given with HS meds with good results.
[2022-12-11 06:00] VITALS: BP 112/69; PULSE 55; RESP 16; TEMP 36.4; O2SAT 98
[2022-12-11] MEDS: paliperidone ER 6 mg Tablet PO (09:03)
[2022-12-11] MEDS: nicotine 4 mg lozenge MUCOUS MEM (09:03)
[2022-12-11] MEDS: OXcarbazepine 300 mg Tablet PO (09:03)
[2022-12-11] MEDS: fluoxetine 20 mg Capsule PO (09:03)
--- NOTE | 2022-12-11 13:25 | P.NPUDS_ITS ---
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: Status: Acute (6) Generalized anxiety disorder: Status: Acute Reason for Visit Reason for Visit: SI Brief History: History of Present Illness Braulio Terrazas is a 27 year old male who presented to the emergency department with the following report: Chief Complaint: Psychiatric Symptoms Stated Complaint: SI Time Seen by Provider: 12/05/22 05:13 Source: patient Mode of arrival: ambulatory Limitations: no limitations History of Present Illness: 27-year-old male has history of schizophrenia along with depression and bipolar disorder he states that over the last few days he been having increased hallucinations along with suicidal ideations he states he has not been taking his meds he supposed be on risperidone he has not been taking them. He denies any worsening improving factors at this time. Associated symptoms: Reports depression He was admitted to the neuropsychiatric unit for definitive treatment of those issues. He presents fairly focused on his somewhat hyper yazidism, conspiratorial delusions making it hard for him to stay on task and normal question and answering situations. What we were able to glean from the conversation is that he has been hospitalized recently in another hospital in the past 2 to 4 weeks but that he currently has no medications and has not been taking medication. He is reportedly homeless now and has not been able to really meet his needs because he is stuck in a shed possibly on his family's property or having no place to stay but certainly without stability that would allow him to get his mental health issues back on track. In excerpt of his past hospitalization in 2020 is included below for context. His drug screen was only positive for cannabis. We discussed the risk benefits and alternatives of reviewing his medications and restarting some of the medications at appropriate initiation doses and he understood and agreed to proceed as it is documented in this note. 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: Status: Acute (9) Generalized anxiety disorder: Status: Acute Reason for Visit Reason for Visit: SI Brief History: History of Present Illness Braulio Terrazas is a 26 year old male who presented to the emergency department with the following report: Chief Complaint: Psychiatric Symptoms Stated Complaint: SI Time Seen by Provider: 09/14/21 19:09 History of Present Illness: MD complaint: suicidal ideation and feels depres sed Onset (ago): day(s) Duration: constant and getting worse History of same: Yes Relieving factors: none Exacerbating factors: none Associated psychiatric symptoms: depression and suicidal ideation Associated symptoms: Reports auditory hallucinations, delusions and suicidal ideation; Deny homicidal ideation If self harm: admits thoughts of self harm and has plan. He was admitted to the neuropsychiatric unit for definitive treatment of those issues. Patient has recently been discharged from the unit and at that time there were concerns about his readiness for discharge. He presents today di scussing that there are things that we discussed again interplay. The fragility of his living arrangements led to him moving out, getting kicked out, breaking up with his girlfriend and then reconnecting with her creating emotional turmoil and homelessness. He presented reporting that he started having thoughts to hurt himself/kill himself but denies any new issues outside of the lingering and psychosocial challenges that were part of our concerns about his stability during the last admission. Risk-benefit terms of maintaining his medication at the current doses given that he just changed them in the past week. And he understood agreed receipt as documented in his note. Given the no substantive changes and H&P from a little over a week ago an excerpt from that note is included below for context. Per his 09/05/2021 [facility] inpatient psychiatric evaluation: History of Present Illness Braulio Terrazas is a 26 year old male presented to the emergency department with the following report: Chief Complaint: Psychiatric Symptoms Stated Complaint: SI W/PLAN Time Seen by Provider: 09/04/21 16:21 History of Present Illness: HPI Narrative: Ms Terrazas is a 26-year-old gentleman with history of depression who presents to the emergency department with depression with suicidal ideation. He reports symptoms have been worse over the past month or so without specific exacerbating factors. He describes near constant intrusive thoughts of suicide and actively having to make decisions not to kill himself. His plan is to shoot himself and he does have access to firearms. He misses doses of medication every so often and has been out of his Risperdal for the past 3 days. He denies acute medical complaints. Overall the course of symptoms has been worsening. He has been hospitalized previously for psychiatric reasons though nothing recently. No other specific exacerbating or alleviating factors noted. He was admitted to the neuropsychiatric unit for definitive treatment of those issues. He presents today reporting that things have not changed that much since last time he was in the hospital. He mainly reported that [place] girlfriend and their family. Which initially was a positive to be away from his family but recently has turned negative. He reports the main stressor in the home is that he is currently not working and his girlfriend's mother says disparaging things about him behind his back to his girlfriend which has created some contention. Additionally stressed out by his mother's cancer diagnosis, is bank account being empty, and feeling like no matter how hard he works on his mental health and other factors he always ends up at the same place which he reports has created significant despair. He reports that he does not know if we cannot get some stability whether he will be able to avoid killing himself. He discussed a situation where his significant other made him very angry that he is unclear why he did just turn into traffic. We discussed the risk benefits and alternatives of increasing his Prozac to 40 mg p.o. every morning and he understood agreed to proceed as is documented in his note. Reviewed his other medications which appear to be helping. He denies any other substantive changes in his life and an excerpt of his outpatient psychiatric evaluation is included below for context. We discussed seeing whether he had presented to the emergency department enough to get connected with the [facility] program but also discussed the possibility of getting him connected with [facility]. Per his 12/13/2020 [facility] outpatient psychiatric evaluation: [facility] History and Physical Time In: 09:20 Time Out: 10:15 Chief Complaint: I need to get back on medications History of Present Illness: This is a 25-year-old male who is been diagnosed with various diagnoses in the past including schizoaffective disorder, polysubstance use including marijuana, alcohol, nicotine, inhalants, and other substances, in addition to depression and anxiety, and cluster a personality traits. Today he describes a history that certainly consistent with schizoid and schizotypal personality traits and that he has a coping style centered around fantasy world including imaginative but also books and films, but his more recent presentation in the last few years have presented with some paranoid ideations and auditory hallucinations at times but she certainly has good insight into, and may have been exacerbated by continuous drug use including huffing gas starting around age 89 years old, the last time was 2 years ago, heavy alcohol use and marijuana use all of which started very young, alcohol starting at age 12, nicotine starting by age 79 years old, marijuana starting by age [age] years old. Today after discussing his past history and reviewing his to psychiatric admissions that both happened in 2019, I feel that the cluster B personality traits along with anxiety and depression are the most applicable in addition to the substance use. I believe that any psychotic symptoms he had were exacerbated by substance there is no doubt he does have schizoid and schizotypal personality traits. Question of trauma history is also come up and he tells me that he does not have much memory of his childhood, but this sounds as if it is more related to his chronic coughing of gasoline and marijuana use and other substances other than a dissociation process. There does not seem to be a history of severe physical or sexual abuse or even domestic violence but he says he was bullied severely by his brothers and his father was an angry alcoholic and yelled a lot. The patient remembers having depression and suicidal thoughts even in elementary school as a result of the bullying from his older brothers. He tells me that he got so bad that he ended up being a bully himself for a few years. There is no active suicidal thoughts, there is no actual history of suicide attempts, but he has had some cutting superficially for self-harm and in addition he says he often peeled back his fingernails and toenails as a form self-harm the last time this happened was 3 weeks ago. During the session today he does not appear internally preoccupied but he is a little oddly related consistent with a cluster a personality. He is denying active hallucinations at this time but he does when to get back on the Risperdal saying that it helped him with stabilizing his mood but he is unsure if it helped with hallucinations. He does say that the hallucinations were less sinister and had less energy while on medications. History Past Psychiatric History: 2 psychiatric admissions in 2019 were his only admissions and they were each for about a week with suicidal ideations in the context of substance use. Denies actual suicide attempts, has had self-harm in the form of cutting and peeling back to his nails. Family History: Father had depression and alcoholism, a brother could possibly be bipolar, Past Medical History: Denies current medical issues. Substance Use History: Inhalants: Started age 89 years old huffing gasoline, he still coughs on occasion and last used 2 years ago at age 23 which is a little late for puffers as they tend to stop in their teenage years. Alcohol: Started age [age] years old, for a few years he was drinking a 12 pack a day, now he drinks 6 or 7 beers once a week and a few beers on other nights. Marijuana: Started age [age] years old has been a consistent user periods in his life Nicotine: Currently up 3 to 5 mg a day, started smoking cigarettes when he picked him up from his mother's ashtray at age 79 years old. Other: He says he has used other pills in the past including some opiates, muscle relaxers, amphetamines but nothing consistent. Social History: He denies ever being or ever having kids. He did graduate high school in [place], he is currently trying to go to college. Hospital Course Hospital Course He slowly acclimated to the individual, group and milieu therapies provided. He presented with medication adherence issues with history of being on Invega without issue. We restarted Invega and switched him to the long-acting injectable. We added some Vistaril to help with anxiety and continued his other medications. He was able to work with the treatment team to assist with outpatient resources and housing given that he is homeless. He had significant improvement and was able to contract for safety, outside the hospital prior to discharge. During the hospitalization, patient had routine laboratory studies which were within normal limits except for few outliers. Additionally there was a general medical evaluation which was also within normal limits and revealed no new acute processes. Discharge Summary: At the time of discharge, he denied psychosis or lethality. Mood and anxiety were well managed. Patient endorsed a plan to avoid all drugs of abuse and f ollow-up with the aftercare recommendations of the treatment team. Patient was evaluated and deemed to be absent credible lethality, and had achieved the maximum benefit from an inpatient hospitalization, so was discharged. Involuntary Hold Information 96 Hour Hold: 96 Hour Involuntary Admission: Yes 96 Hour Hold Ending Date: 12/11/22 96 Hour Hold Ending Time: 05:28 Mental Status Exam MSE Comments: This is an obese white male in hospital scrubs with improved grooming and eye contact. No abnormal movements except for mild psychomotor retardation. Cooperative with exam in no acute distress. Speech was more normal rate and normal volume. Mood described as better, affect congruent and less subdued. Thought process organized. Thought content: Patient denied suicidal or homicidal ideations, there were no delusions reported or noted, he denied any auditory or visual hallucinations. Attention, concentration and memory appear intact but were not formally tested. He is alert and oriented x3. Insight and judgment improving and impulse control limited. Discharge Data Studies Completed and Pending: Laboratory Results WBC 7.2 10^3/uL (4.0- 10.0) 12/05/22 05:33 RBC 4.92 10^6/uL (4.1 -5.3) 12/05/22 05:33 Hgb 14.1 g/dL (11.7-1 6.6) 12/05/22 05:33 Hct 42.6 % (42.0-52.0 ) 12/05/22 05:33 MCV 86.6 fl (80-94) 12/05/22 05:33 MCH 28.7 pg (28.0-34. 0) 12/05/22 05:33 MCHC 33.1 g/dL (30.0-3 6.0) 12/05/22 05:33 RDW 12.5 % (12.1-15.1 ) 12/05/22 05:33 Plt Count 184 10^3/cmm (130 -400) 12/05/22 05:33 MPV 10.9 fL (7.4-10.4 ) H 12/05/22 05:33 Neut % (Auto) 65.9 % 12/05/22 05:33 Lymph % (Auto) 25.6 % 12/05/22 05:33 [place] % (Auto) 6.8 % 12/05/22 05:33 Eos % (Auto) 1.1 % 12/05/22 05:33 Baso % (Auto) 0.3 % 12/05/22 05:33 Neut # (Auto) 4.76 10^3/uL (1.8 -7.7) 12/05/22 05:33 Lymph # (Auto) 1.9 10^3/uL (0.8- 4.8) 12/05/22 05:33 [place] # (Auto) 0.5 10^3/uL (0.2- 0.9) 12/05/22 05:33 Eos # (Auto) 0.1 10^3/uL (0.0- 0.8) 12/05/22 05:33 Baso # (Auto) 0.0 10^3/uL (0.0- 0.1) 12/05/22 05:33 Nucleated RBC % (a uto) 0 % 12/05/22 05:33 Nucleated RBCs # 0.0 /100WBC 12/05/22 05:33 Sodium 141 mmol/L (136-1 45) 12/05/22 05:33 Potassium 3.5 mmol/L (3.5-5 .1) 12/05/22 05:33 Chloride 103 mmol/L (98-10 7) 12/05/22 05:33 Carbon Dioxide 25 mmol/L (22-29) 12/05/22 05:33 Anion Gap 16.5 (5-19) 12/05/22 05:33 BUN 6 mg/dL (6-20) 12/05/22 05:33 Creatinine 0.7 mg/dL (0.7-1. 2) 12/05/22 05:33 GFR Calculation 137.4 mL/min (90- 130) H 12/05/22 05:33 Glucose 93 mg/dL (65-115) 12/05/22 05:33 Calculated Osmolal ity 289 mOsm/kg (285- 295) 12/05/22 05:33 Calcium 10.1 mg/dL (8.5-1 0.5) 12/05/22 05:33 Total Bilirubin 0.2 mg/dL (0.15-1 .2) 12/05/22 05:33 AST 20 U/L (0-40) 12/05/22 05:33 ALT 23 U/L (0-41) 12/05/22 05:33 Alkaline Phosphata se 84 U/L (40-130) 12/05/22 05:33 Total Protein 7.3 g/dL (6.6-8.7 ) 12/05/22 05:33 Albumin 4.2 g/dL (3.5-5.2 ) 12/05/22 05:33 Globulin 3.1 g/dL (1.3-4.6 ) 12/05/22 05:33 Salicylates < 0.3 mg/dL (3-10 ) L 12/05/22 05:33 Urine Opiates Scre en Negative ng/mL (N egative) 12/05/22 05:38 Acetaminophen < 5.0 ug/mL (10-3 0) L 12/05/22 05:33 Ur Barbiturates Sc reen Negative ng/mL (N egative) 12/05/22 05:38 Ur Phencyclidine S crn Negative ng/mL (N egative) 12/05/22 05:38 Ur Amphetamines Sc reen Negative ng/mL (N egative) 12/05/22 05:38 U Benzodiazepines Scrn Negative ng/mL (N egative) 12/05/22 05:38 Urine Cocaine Scre en Negative ng/mL (N egative) 12/05/22 05:38 U Marijuana (THC) Screen Positive ng/mL (N egative) H 12/05/22 05:38 Ethyl Alcohol < 10 mg/dL (0-10) 12/05/22 05:33 Vitals: Last Vital Signs Temp 97.6 F 12/11/22 06:00 Pulse 55 L 12/11/22 06:00 Resp 16 12/11/22 06:00 BP 112/69 12/11/22 06:00 Pulse Ox 98 12/11/22 06:00 O2 Del Method 12/11/22 06:00 Discharge Plan Discharge Patient Disposition: Home Condition: Stable Prescriptions: New hydroxyzine pamoate 25 mg Capsule 50 mg PO Q6H PRN (Reason: Anxiety) 30 Days Qty: 120 1RF Invega Sustenna 156 mg/mL syringe 156 mg IM Q30D 28 Days Qty: 1 1RF Rx Instructions: Next injection IM deltoid loading dose 12/17/22. Then 01/14/23 IM Continued Minipress 1 mg capsule 3 mg PO BEDTIME 30 Days Qty: 90 1RF Rx Instructions: Last filled 10/27/22 Trileptal 300 mg tablet 300 mg PO 2XD 30 Days Qty: 60 1RF Rx Instructions: Last filled 10/27/22 Seroquel 100 mg tablet 100 mg PO BEDTIME 30 Days Qty: 30 1RF Rx Instructions: Last filled 10/27/22 Prozac 20 mg capsule 20 mg PO DAILY 30 Days Qty: 30 1RF Rx Instructions: Last filled 10/27/22 Discontinued risperidone [Risperdal] 1 mg tablet 1 mg PO 2XD Rx Instructions: Last filled 10/27/22 Discharge Orders: Discharge Order (Routine); Ordered 12/11/22 Ordered By: Timur Huntley Referrals: [facility] [Other] (Application has been sent to [facility]. ) [facility] [Other] - 12/11/22 [facility] [Outside] - 12/25/22 8:30 am (Initial assessment scheduled for 12/25/22 @ 8:30 am) Graeme Ramsay MD [Physician] - 12/18/22 9:00 am (Follow up. ) Discharge Diet: Regular Discharge Activity: Resume usual activity Patient Instructions: Depression, Hydroxyzine (By mouth) (Vistaril), Paliperidone (By mouth), Paliperidone (By injection) (Invega Sustenna, Invega Trinza, Invega..., Opioid Safety Discharge Attestations NPU Time Spent in Discharge Care*: less than 30 min Specific Discharge Activities: Specific discharge activities: educating patient, discussing with home health care case manager/social workers/dc planners, documenting/other paperwork and evaluating patient/reviewing data Coding Level of Care Code Acute [facility] DC note Diagnoses Suicidal ideation R45.851 Major depressive disorder, recurrent, severe with psychotic symptoms F33.3 Cannabis use disorder, moderate, in early remission, dependence F12.21 Nicotine dependence, unspecified, uncomplicated F17.200 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
[2022-12-11 14:14] VITALS: BP 112/69; PULSE 55; RESP 16; TEMP 36.4; O2SAT 98
== END 2022-12-11 14:55 | disposition home or self-care (01) | DRG 885 ==
LOC: ER 05:54 → NP 12-06 07:29
PROVIDERS: Admitting Provider Psychiatry & Neurology Psychiatry; Emergency Provider Emergency Medicine; Visit Provider Psychiatry & Neurology Psychiatry
DX: F25.0 Schizoaffective disorder, bipolar type (principal); R45.851 Suicidal ideations; T43.596A Underdosing of other antipsychotics and neuroleptics, initial encounter; Z91.128 Patient's intentional underdosing of medication regimen for other reason; Z59.01 Sheltered homelessness; F17.290 Nicotine dependence, other tobacco product, uncomplicated; F12.20 Cannabis dependence, uncomplicated; F60.89 Other specific personality disorders
CPT/HCPCS: 80053; 80306; 80307; 85025; 96372; 97150; 97165; 99238; 99285

== ENCOUNTER 2022-12-24 22:39 | Inpatient (IN) | payer MEDICAID, SELFPAY ==
[2021-09-25 16:09] VITALS: BMI 39.9
--- NOTE | 2022-12-24 22:46 | PC.NURSE ---
Patient states he has been having a trouble determining what is real and not real at this time. Denies hallucinations. Has been taking medications as normal. Has been having thoughts of hurting him self. Patient states he was here last week and started a new medication and it did not help with this.
[2022-12-24 22:50] VITALS: BP 114/78; PULSE 71; RESP 18; TEMP 36.9; O2SAT 98
--- NOTE | 2022-12-24 22:54 | W.ED.PSYCHS ---
HPI - Psych General: Chief Complaint: Psychiatric Symptoms Stated Complaint: SI Time Seen by Provider: 12/24/22 22:45 Source: patient and EMS Mode of arrival: EMS Limitations: no limitations History of Present Illness: 27-year-old male who states that he has been having increased hallucinations he states he believes he has been seeing things on his phone has been caused him to paranoid he states he had some passing suicidal thoughts as well with no specific plan he states he feels like he needs to be readmitted to the psych [facility] he is voluntary at this time. Associated symptoms: Reports visual hallucinations, depression and suicidal ideation Review of Systems Const: Denies: fever(s), chills, body aches or change in appetite Eyes: Denies: blurry vision or eye discomfort ENMT: Denies: throat pain or dental pain Card: Denies: chest pain Resp: Denies: dyspnea GI: Denies: abdominal pain, nausea, vomiting or diarrhea : Denies: dysuria Musc: Denies: neck pain or back pain Skin/Breast: Denies: rash Neuro: Denies: headache(s) Psych: Reports: depression, visual hallucinations and suicidal ideation Adama/Lymph: Denies: easy bruising All/Imm: Denies: urticaria PFSH ED PFSH: Medical History Major depressive disorder, recurrent severe without psychotic features Psychiatric care Social History Smoking and tobacco status: current every day smoker e-cigarettes E-Cigarette Details: vaporizer device and with nicotine E-cig/vape details: 5 mg/Day Quit status (tobacco): considering quitting Second hand smoke exposure: No Current gender identity: Male Physical Exam Const: COMMON NORMALS: no acute distress, patient oriented x3 and healthy appearing HENMT: COMMON NORMALS: normocephalic and atraumatic HEAD & SCALP: normocephalic and atraumatic Eye: COMMON NORMALS: Equal, round and reactive pupils present and EOMs intact bilaterally PUPIL: Yes Equal, round and reactive pupils present Neck/C-Spine: COMMON NORMALS: full ROM and supple Chest: COMMONS NORMALS: normal inspection of the chest and normal palpation of entire chest wall Resp: COMMON NORMALS: normal respiratory effort, No retractions, No use of accessory muscles and clear to auscultation bilaterally AUSCULTATION: clear to auscultation bilaterally Cardio: COMMON NORMALS: regular rate, regular rhythm and No murmurs present (Cardio) RATE: regular rate RHYTHM: regular rhythm GI: COMMON NORMALS: Normal to inspection, nondistended, normoactive bowel sounds present, Soft to palpation, non-tender and no masses PALPATION: Yes Soft to palpation Extremity: COMMON NORMALS: normal to inspection and full ROM Neuro: COMMON NORMALS: patient oriented x3, moves all extremities and no focal motor deficits Psych: COMMON NORMALS: mental status grossly normal, Normal thought process present and cooperative MOOD & AFFECT: Yes depressed mood THOUGHT PROCESS: Normal thought process present THOUGHT CONTENT: Yes Suicidality present and Yes Hallucination(s) present Skin: COMMON NORMALS: no rashes or lesions noted and no wounds GENERAL SKIN EXAM: no rashes or lesions noted Course Vital Signs: Vital signs: Vital Signs Temperature 98.5 F 12/24/22 22:50 Pulse Rate 71 12/24/22 22:50 Respiratory Rate 18 12/24/22 22:50 Blood Pressure 114/78 12/24/22 22:50 Pulse Oximetry 98 12/24/22 22:50 Oxygen Delivery Me thod 12/24/22 22:50 MDM - Psych Medical Decision Making Patient presents here with some hallucinations paranoia he is also having suicidal thoughts no specific plan he is voluntary he is medically cleared I spoke to psychiatrist and will admit at this time Lab Data 12/24/22 23:39 12/24/22 23:39 Laboratory Results WBC 8.4 10^3/uL (4.0-10.0) 12/24/22 23:39 RBC 4.39 10^6/uL (4.1-5.3) 12/24/22 23:39 Hgb 12.6 g/dL (11.7-16.6) 12/24/22 23:39 Hct 38.3 % (42.0-52.0) L 12/24/22 23:39 MCV 87.2 fl (80-94) 12/24/22 23:39 MCH 28.7 pg (28.0-34.0) 12/24/22 23:39 MCHC 32.9 g/dL (30.0-36.0) 12/24/22 23:39 RDW 13.0 % (12.1-15.1) 12/24/22 23:39 Plt Count 168 10^3/cmm (130-400) 12/24/22 23:39 MPV 11.4 fL (7.4-10.4) H 12/24/22 23:39 Neut % (Auto) 59.4 % 12/24/22 23:39 Lymph % (Auto) 33.4 % 12/24/22 23:39 Slope % (Auto) 5.3 % 12/24/22 23:39 Eos % (Auto) 1.6 % 12/24/22 23:39 Baso % (Auto) 0.2 % 12/24/22 23:39 Neut # (Auto) 4.96 10^3/uL (1.8-7.7) 12/24/22 23:39 Lymph # (Auto) 2.8 10^3/uL (0.8-4.8) 12/24/22 23:39 Slope # (Auto) 0.4 10^3/uL (0.2-0.9) 12/24/22 23:39 Eos # (Auto) 0.1 10^3/uL (0.0-0.8) 12/24/22 23:39 Baso # (Auto) 0.0 10^3/uL (0.0-0.1) 12/24/22 23:39 Nucleated RBC % (auto) 0 % 12/24/22 23:39 Nucleated RBCs # 0.0 /100WBC 12/24/22 23:39 Sodium 137 mmol/L (136-145) 12/24/22 23:39 Potassium 3.6 mmol/L (3.5-5.1) 12/24/22 23:39 Chloride 102 mmol/L (98-107) 12/24/22 23:39 Carbon Dioxide 25 mmol/L (22-29) 12/24/22 23:39 Anion Gap 13.6 (5-19) 12/24/22 23:39 BUN 14 mg/dL (6-20) 12/24/22 23:39 Creatinine 1.0 mg/dL (0.7-1.2) 12/24/22 23:39 GFR Calculation 91.0 mL/min (90-130) 12/24/22 23:39 Glucose 85 mg/dL (65-115) 12/24/22 23:39 Calculated Osmolality 284 mOsm/kg (285-295) L 12/24/22 23:39 Calcium 9.1 mg/dL (8.5-10.5) 12/24/22 23:39 Total Bilirubin 0.2 mg/dL (0.15-1.2) 12/24/22 23:39 AST 20 U/L (0-40) 12/24/22 23:39 ALT 31 U/L (0-41) 12/24/22 23:39 Alkaline Phosphatase 67 U/L (40-130) 12/24/22 23:39 Total Protein 6.6 g/dL (6.6-8.7) 12/24/22 23:39 Albumin 4.0 g/dL (3.5-5.2) 12/24/22 23:39 Globulin 2.6 g/dL (1.3-4.6) 12/24/22 23:39 Salicylates 0.6 mg/dL (3-10) L 12/24/22 23:39 Urine Opiates Screen Negative ng/mL (Negative) 12/24/22 23:07 Acetaminophen < 5.0 ug/mL (10-30) L 12/24/22 23:39 Ur Barbiturates Screen Negative ng/mL (Negative) 12/24/22 23:07 Ur Phencyclidine Scrn Negative ng/mL (Negative) 12/24/22 23:07 Ur Amphetamines Screen Negative ng/mL (Negative) 12/24/22 23:07 U Benzodiazepines Scrn Negative ng/mL (Negative) 12/24/22 23:07 Urine Cocaine Screen Negative ng/mL (Negative) 12/24/22 23:07 U Marijuana (THC) Screen Positive ng/mL (Negative) H 12/24/22 23:07 Ethyl Alcohol < 10 mg/dL (0-10) 12/24/22 23:39 Discharge Plan Discharge Patient Disposition: Admitted As Inpatient Admit Provider: Timur Huntley Clinical Impression: Acute psychosis, Suicidal ideation Condition: Stable Coding Level of Care Code ED Certified Vehicle [employer] Investigator for Eric Glover
[2022-12-24 23:55] LABS: Amphetamines Screen Urine Negative (Negative); Barbiturates Screen Urine Negative (Negative); Benzodiazepines Screen Urine Negative (Negative); Cocaine Screen Urine Negative (Negative); Opiate Screen Urine Negative (Negative); PCP Screen Urine Negative (Negative); THC Screen Urine Positive (Negative)
[2022-12-25 00:18] LABS: Basophils % 0.2 %; Eosinophils # 0.1 10^3/uL (0.0-0.8); Eosinophils % 1.6 %; Hematocrit 38.3 % (42.0-52.0); Hemoglobin 12.6 g/dL (11.7-16.6); Lymphocytes # 2.8 10^3/uL (0.8-4.8); Lymphocytes % 33.4 %; Mean Corpuscular HGB Conc 32.9 g/dL (30.0-36.0); Mean Corpuscular Hemoglobin 28.7 pg (28.0-34.0); Mean Corpuscular Volume 87.2 fl (80-94); Mean Platelet Volume 11.4 fL (7.4-10.4); Monocytes # 0.4 10^3/uL (0.2-0.9); Monocytes % 5.3 %; Neutrophils # 4.96 10^3/uL (1.8-7.7); Neutrophils % 59.4 %; Nucleated Red Blood Cells % 0 %; Platelet Count 168 10^3/cmm (130-400); Red Blood Count 4.39 10^6/uL (4.1-5.3); White Blood Count 8.4 10^3/uL (4.0-10.0)
[2022-12-25 00:30] LABS: Alanine Aminotransferase 31 U/L (0-41); Alkaline Phosphatase 67 U/L (40-130); Anion Gap 13.6 (5-19); Aspartate Amino Transferase 20 U/L (0-40); Blood Urea Nitrogen 14 mg/dL (6-20); Calcium 9.1 mg/dL (8.5-10.5); Carbon Dioxide 25 mmol/L (22-29); Chloride 102 mmol/L (98-107); Globulin 2.6 g/dL (1.3-4.6); Glucose 85 mg/dL (65-115); Osmolality Calculated 284 mOsm/kg (285-295); Potassium 3.6 mmol/L (3.5-5.1); Salicylate 0.6 mg/dL (3-10); Sodium 137 mmol/L (136-145); Total Bilirubin 0.2 mg/dL (0.15-1.2); Total Protein 6.6 g/dL (6.6-8.7)
[2022-12-25 00:32] LABS: Acetaminophen < 5.0 ug/mL (10-30); Alcohol Level < 10 mg/dL (0-10)
[2022-12-25 01:40] VITALS: BP 130/71; PULSE 71; RESP 18; TEMP 36.6; O2SAT 96
--- NOTE | 2022-12-25 04:55 | PC.NURSE ---
at 0100 pt presents to unit calm and cooperative, reports recent discharge in past 30 days from this facility, currently denies SI/HI, AVH, states hasn't taken his medication in 2 days, was reporting AVH- told his friend his phone talks back to him and versions of his recordings changes, poor eye contact during assessment, positive for THC, reports no alcohol in 2-3 weeks, tattoo on back of left calf, multiple poss bug bites on trunk, pt is homeless, he had few snacks and fell asleep, no distress noted.
[2022-12-25 06:00] VITALS: BP 110/74; PULSE 64; RESP 15; TEMP 36.4; O2SAT 96
[2022-12-25] MEDS: OXcarbazepine 300 mg Tablet PO ×2 (08:13→20:36)
[2022-12-25] MEDS: fluoxetine 20 mg Capsule PO (08:13)
[2022-12-25 14:00] VITALS: BP 110/70; PULSE 60; RESP 18; TEMP 36.5; O2SAT 98
[2022-12-25] MEDS: paliperidone palmitate 156 mg Syringe IM (14:18)
--- NOTE | 2022-12-25 14:21 | PC.NURSE ---
IRMA SUSTENNA 156 MG GIVEN IM ORDERED BY PHYSICIAN. EDUCATED ON MED GIVEN & PT VERBALIZED UNDERSTANDING. WILL CONT TO MONITOR INJECTION SITE FOR ANY REDNESS,SWELLING, OR IRRITATION LOT [id number] EXP 05/2024
--- NOTE | 2022-12-25 16:33 | P.NPUHP_ITS ---
Providers/Chief Complaint Admitting Physician: Timur Huntley MD Chief Complaint: SI HPI NPU History of Present Illness Braulio Terrazas is a 27 year old male who was recently discharged from the neuropsychiatric unit on 12/11/2022 with a history of psychotic disorder and otherwise specified who was brought into the emergency department after he had reported that for the past 4 to 5 days he had had an increase in the presence of auditory and visual hallucinations. He stated that he had been feeling paranoid about things disappearing from his phone. He had reported that he was having some suicidal thoughts at this time. He reported that he had had problems with concentration and states that he had not been sleeping well. He had reported having a history of psychotic symptoms for for several years and stated that he had previously used inhalants and had huffed gasoline at a young age. He had also endorsed an extended history of substance use stating that he had been drinking at a young age. He reports that he had been scheduled to receive his second dose of Invega Sustenna on 12/17/2022 but he had missed his appointment and had been without his medication to target his psychosis. The patient reported no substantial changes since his last hospitalization Per Previous Discharge on 12/05/22 HPI: Braulio Terrazas is a 27 year old male who presented to the emergency department with the following report: Chief Complaint: Psychiatric Symptoms Stated Complaint: SI Time Seen by Provider: 12/05/22 05:13 Source: patient Mode of arrival: ambulatory Limitations: no limitations History of Present Illness:?? 27-year-old male has history of schizophrenia along with depression and bipolar disorder he states that over the last few days he been having increased hallucinations along with suicidal ideations he states he has not been taking his meds he supposed be on risperidone he has not been taking them.? He denies any worsening improving factors at this time. Associated symptoms: Reports depression He was admitted to the neuropsychiatric unit for definitive treatment of those issues.? He presents fairly focused on his somewhat hyper temple, conspiratorial delusions making it hard for him to stay on task and normal qu estion and answering situations.? What we were able to glean from the conversation is that he has been hospitalized recently in another hospital in the past 2 to 4 weeks but that he currently has no medications and has not been taking medication.? He is reportedly homeless now and has not been able to really meet his needs because he is stuck in a shed possibly on his family's property or having no place to stay but certainly without stability that would allow him to get his mental health issues back on track.? In excerpt of his past hospitalization in 2020 is included below for context.? His drug screen was only positive for cannabis.? We discussed the risk benefits and alternatives of revi duffy his medications and restarting some of the medications at appropriate initiation doses and he understood and agreed to proceed as it is documented in this note. Per his 09/17/2021 [facility] inpatient psychiatric discharge summary: Discharge Diagnosis (1) Acute psychosis: ? ? ? Status: Resolved (2) Suicidal ideation: ? ? ? Status: Resolved (3) Major depressive disorder, recurrent, severe with psychotic symptoms: ? ? ? Status: Acute (4) Cannabis use disorder, moderate, in early remission, dependence: ? ? ? Status: Acute (5) Moderate alcohol dependence: ? ? ? Status: Acute (6) Inhalant use disorder, moderate, in sustained remission, dependence: ? ? ? Status: Deleted (7) Nicotine dependence, unspecified, uncomplicated: ? ? ? 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 ? ? Status: Acute (9) Generalized anxiety disorder: ? ? ? Status: Acute Reason for Visit Reason for Visit:?? SI? Brief History: History of Present Illness Braulio Terrazas is a 26 year old male who presented to the emergency department with the following report: Chief Complaint: Psychiatric Symptoms Stated Complaint: SI Time Seen by Provider: 09/14/21 19:09 History of Present Illness:?? MD complaint: suicidal ideation and feels dep ressed Onset (ago): day(s) Duration: constant and getting worse History of same: Yes Relieving factors: none Exacerbating factors: none Associated psychiatric symptoms: depression and suicidal ideation Associated symptoms: Reports auditory hallucinations, delusions and suicidal ideation; Deny homicidal ideation If self harm: admits thoughts of self harm and has plan. He was admitted to the neuropsychiatric unit for definitive treatment of those issues.? Patient has recently been discharged from the unit and at that time there were concerns about his readiness for discharge.? He presents today discussing that there are things that we discussed again interplay.? The fragility of his living arrangements led to him moving out, getting kicked out, breaking up with his girlfriend and then reconnecting with her creating emotional turmoil and homelessness.? He presented reporting that he started having thoughts to hurt himself/kill himself but denies any new issues outside of the lingering and psychosocial challenges that were part of our concerns about his stability during the last admission.? Risk-benefit terms of maintaining his medication at the current doses given that he just changed them in the past week.? And he understood agreed receipt as documented in his note.? Given the no substantive changes and H&P from a little over a week ago an excerpt from that note is included below for context. Per his 09/05/2021 [facility] inpatient psychiatric evaluation: History of Present Illness Braulio Terrazas is a 26 year old male presented to the emergency department with the following report: Chief Complaint: Psychiatric Symptoms Stated Complaint: SI W/PLAN Time Seen by Provider: 09/04/21 16:21 History of Present Illness:?? HPI Narrative: Ms Terrazas is a 26-year-old gentleman with history of depression who presents to the emergency department w ith depression with suicidal ideation.? He reports symptoms have been worse over the past month or so without specific exacerbating factors.? He describes near constant intrusive thoughts of suicide and actively having to make decisions not to kill himself.? His plan is to shoot himself and he does have access to firearms.? He misses doses of medication every so often and has been out of his Risperdal for the past 3 days.? He denies acute medical complaints.? Overall the course of symptoms has been worsening.? He has been hospitalized previously for psychiatric reasons though nothing recently.? No other specific exacerbating or alleviating factors noted. He was admitted to the neuropsychiatric unit for definitive treatment of those issues.? He presents today reporting that things have not changed that much since last time he was in the hospital.? He mainly reported that he was now living in [place] his girlfriend and their family.? Which initially was a positive to be away from his family but recently has turned negative.? He reports the main stressor in the home is that he is currently not working and his girlfriend's mother says disparaging things about him behind his back to his girlfriend which has created some contention.? Additionally stressed out by his mother's cancer diagnosis, is bank account being empty, and feeling like no matter how hard he works on his mental health and other factors he always ends up at the same place which he reports has created significant despair.? He reports that he does not know if we cannot get some stability whether he will be able to avoid killing himself.? He discussed a situation where his significant other made him very angry that he is unclear why he did just turn into traffic.? We discussed the risk benefits and alternatives of increasing his Prozac to 40 mg p.o. every morning and he understood agreed to proceed as is documented in his note.? Reviewed his other medications which appear to be helping.? He denies any other substantive changes in his life and an excerpt of his outpatient psychiatric evaluation is included below for context.? We discussed seeing whether he had presented to the emergency department enough to get connected with the [facility] program but also discussed the possibility of getting him connected with [facility]. Per his 12/13/2020 [facility] [place] outpatient psychiatric evaluation: [facility] [place] History and Physical Time In: 09:20 Time Out: 10:15 Chief Complaint: I need to get back on medications History of Present Illness: This is a 25-year-old male who is been diagnosed with various diagnoses in the past including schizoaffective disorder, polysubstance use including marijuana, alcohol, nicotine, inhalants, and other substances, in addition to depression and anxiety, and cluster a personality traits.? Today he describes a history that certainly consistent with schizoid and schizotypal personality traits and that he has a coping style centered around fantasy world including imaginative but also books and films, but his more recent presentation in the last few years have presented with some paranoid ideations and auditory hallucinations at times but she certainly has good insight into, and may have been exacerbated by continuous drug use including huffing gas starting around age 89 years old, the last time was 2 years ago, heavy alcohol use and marijuana use all of which started very young, alcohol starting at age 12, nicotine starting by age 79 years old, marijuana starting by age [age] years old.? Today after discussing his past history and reviewing his to psychiatric admissions that both happened in 2019, I feel that the cluster B personality traits along with anxiety and depression are the most applicable in addition to the substance use.? I believe that any psychotic symptoms he had were exacerbated by substance there is no doubt he does have schizoid and schizotypal personality traits.? Question of trauma history is also come up and he tells me that he does not have much memory of his childhood, but this sounds as if it is more related to his chronic coughing of gasoline and marijuana use and other substances other than a dissociation process.? There does not seem to be a history of severe physical or sexual abuse or even domestic violence but he says he was bullied severely by his brothers and his father was an angry alcoholic and yelled a lot.? The patient remembers having depression and suicidal thoughts even in elementary school as a result of the bullying from his older brothers.? He tells me that he got so bad that he ended up being a bully himself for a few years.? There is no active suicidal thoughts, there is no actual history of suicide attempts, but he has had some cutting superficially for self-harm and in addition he says he often peeled back his fingernails and toenails as a form self-harm the last time this happened was 3 weeks ago.? During the session today he does not appear internally preoccupied but he is a little oddly related consistent with a cluster a personality.? He is denying active hallucinations at this time but he does when to get back on the Risperdal saying that it helped him with stabilizing his mood but he is unsure if it helped with hallucinations.? He does say that the hallucinations were less sinister and had less energy while on medications. History Past Psychiatric History: 2 psychiatric admissions in 2019 were his only admissions and they were each for about a week with suicidal ideations in the context of substance use.? Denies actual suicide attempts, has had self-harm in the form of cutting and peeling back to his nails. Family History: Father had depression and alcoholism, a brother could possibly be bipolar, Past Medical History: Denies current medical issues. Substance Use History: Inhalants: Started age 89 years old huffing gasoline, he still coughs on occasion and last used 2 years ago at age 23 which is a little late for puffers as they tend to stop in their teenage years. Alcohol: Started age [age] years old, for a few years he was drinking a 12 pack a day, now he drinks 6 or 7 beers once a week and a few beers on other nights. Marijuana: Started age [age] years old has been a consistent user periods in his life Nicotine: Currently up 3 to 5 mg a day, started smoking cigarettes when he p icked him up from his mother's ashtray at age 79 years old. Other: He says he has used other pills in the past including some opiates, muscle relaxers, amphetamines but nothing consistent. Social History: He denies ever being or ever having kids.? He did graduate high school in [place], he is currently trying to go to college. Meds NPU Home Medications Medication Instructions Recorded Confirmed Last Taken Type fluoxetine 20 mg capsule (Prozac) 20 mg PO DAILY 30 days #30 caps 12/11/22 12/25/22 2 Days Ago Rx ~12/23/22 20 mg hydroxyzine pamoate 25 mg capsule 50 mg PO Q6H PRN Anxiety 30 days 12/11/22 12/25/22 2 Days Ago Rx #120 caps ~12/23/22 50 mg oxcarbazepine 300 mg tablet 300 mg PO 2XD 30 days #60 tabs 12/11/22 12/25/22 2 Days Ago Rx (Trileptal) ~12/23/22 300 mg paliperidone palmitate 156 mg/mL 156 mg IM Q30D 28 days #1 mL 12/11/22 12/25/22 Unknown Rx intramuscular syringe (Invega Sustenna) prazosin 1 mg capsule (Minipress) 3 mg PO BEDTIME 30 days #90 caps 12/11/22 12/25/22 2 Days Ago Rx ~12/23/22 1 mg quetiapine 100 mg tablet (Seroquel) 100 mg PO BEDTIME 30 days #30 tabs 12/11/22 12/25/22 2 Days Ago Rx ~12/23/22 100 mg Allergies Allergy/AdvReac Type Severity Reaction Status Date / Time No Known Allergies Allergy Verified 12/24/22 22:52 PFS NPU PFSH: Medical History Major depressive disorder, recurrent severe without psychotic features Psychiatric care Social History Smoking and tobacco status: current every day smoker e-cigarettes E-Cigarette Details: vaporizer device and with nicotine E-cig/vape details: 5 mg/Day Quit status (tobacco): considering quitting Second hand smoke exposure: No Current gender identity: Male Mental Status Exam MSE Comments: Patient was obese white male in hospital scrubs with poor eye contact and limited grooming. There was no evidence of any abnormal involuntary motor movements tics or tremors appreciated. There was evidence of mild to moderate psychomotor retardation. His speech was somewhat slow in rate and normal in volume. His mood was described as okay. His affect was mood incongruent and blunted. His thought process was linear and organized.. His thought content showed no evidence of active homicidal ideation. He had endorsed having suicidal thoughts with no active plan. There was evidence of paranoid delusions. He did at times appear to be distracted and responding to internal stimuli. His attention was variable. His recent and remote memory were grossly intact. He was alert and oriented to person place time and situation. His insight and judgment were poor. His impulse control appeared limited. 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 1.? Continue current medications, Invega sustenna 156mg today. 2.? Continue every 15 minute checks for safety. 3.? Encourage individual, group and milieu therapies. 4.? Encourage sober living treatment after discharge at the highest level of care to which he is willing to commit. 5.? Work with treatment team to explore what resources including case management he can be connected with at this time. Involuntary Hold Information 96 Hour Hold: 96 Hour Involuntary Admission: No 96 Hour Hold Ending Date: 12/11/22 96 Hour Hold Ending Time: 05:28 Attestations NPU Medical Necessity Statement*: Inpatient hospitalization is medically necessary and the clinically appropriate intervention at this time. Patient will be here for at least 2 midnights. We will monitor and make medication changes as indicated.? Likely length of stay 3-5 days. 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
[2022-12-25] MEDS: quetiapine 100 mg Tablet PO (20:35)
[2022-12-25] MEDS: prazosin 1 mg Capsule 3 MG PO (20:36)
[2022-12-25] MEDS: nicotine 2 mg Gum BUCCAL (20:49)
[2022-12-25 21:45] VITALS: BP 110/59; PULSE 59; RESP 16; TEMP 36.4; O2SAT 98
--- NOTE | 2022-12-26 04:24 | PC.NURSE ---
pt sleeping upon arrival to unit, denies SI, HI, AVH, A2, D1, med compliant, ate few snacks, socialized with peers and slept most of the night. No stress noted,.
[2022-12-26 05:58] VITALS: BP 99/56; PULSE 54; RESP 16; TEMP 36.4; O2SAT 96
[2022-12-26] MEDS: OXcarbazepine 300 mg Tablet PO ×2 (09:15→22:00)
[2022-12-26] MEDS: fluoxetine 20 mg Capsule PO (09:15)
--- NOTE | 2022-12-26 12:44 | W.PM.NPUPNS ---
Subjective NPU Subjective: Patient presented today reporting he is feeling better slightly. He discussed his drug use in the past days since he was discharged by this tech writer. We discussed the treatment plan he and Dr. Cooney had undertaken and the fact that he had obtained a bed at [facility] for sometime next week. Mental Status Exam MSE Comments: This is an obese white male in hospital scrubs with limited grooming and eye contact. No abnormal movements except for psychomotor retardation. Cooperative with exam in no acute distress. Speech was more normal rate and normal volume. Mood described as okay I guess, affect congruent and subdued. Thought process organized. Thought content: Patient endorsed suicidal but denied homicidal ideations, there were no delusions reported and paranoid, persecutory, and hyperreligious delusions noted, he endorsed ongoing auditory but less so visual hallucinations. Attention, concentration and memory appear intact but were not formally tested. He is alert and oriented x3. Insight and judgment are limited and impulse control impaired. 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 1.? Continue current medications, Invega sustenna 156mg yesterday. 2.? Continue every 15 minute checks for safety. 3.? Encourage individual, group and milieu therapies. 4.? Encourage sober living treatment after discharge at the highest level of care to which he is willing to commit. 5.? Work with treatment team to explore what resources including case management he can be connected with at this time. Involuntary Hold Information 96 Hour Hold: 96 Hour Involuntary Admission: No 96 Hour Hold Ending Date: 12/11/22 96 Hour Hold Ending Time: 05:28 Attestations NPU Medical Necessity Statement*: Inpatient hospitalization is medically necessary and the clinically appropriate intervention at this time. Patient will be here for at least 2 midnights. We will monitor and make medication changes as indicated.? Likely length of stay 3-5 days. Coding Level of Care Code Acute Code for 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
[2022-12-26] MEDS: nicotine 4 mg lozenge MUCOUS MEM ×2 (13:26→18:30)
[2022-12-26 14:00] VITALS: BP 125/77; PULSE 77; RESP 16; TEMP 36.8; O2SAT 97
[2022-12-26] MEDS: prazosin 1 mg Capsule 3 MG PO (21:17)
[2022-12-26] MEDS: nicotine 2 mg Gum BUCCAL (21:17)
[2022-12-26] MEDS: quetiapine 100 mg Tablet PO (21:20)
[2022-12-26 21:45] VITALS: BP 123/70; PULSE 82; RESP 17; TEMP 36.9; O2SAT 96
[2022-12-27 06:00] VITALS: BP 119/73; PULSE 52; RESP 15; TEMP 36.3; O2SAT 96
[2022-12-27] MEDS: OXcarbazepine 300 mg Tablet PO ×2 (08:47→20:49)
[2022-12-27] MEDS: fluoxetine 20 mg Capsule PO (08:47)
--- NOTE | 2022-12-27 11:24 | W.PM.NPUPNS ---
Subjective NPU Subjective: Patient presented today reporting that he is feeling okay. We discussed the [facility] bed available next week and he endorsed being agreeable to working with [facility] starting Thursday to see when that can happen. He reports that his psychotic symptoms are abating. And that he is eating and sleeping well. Mental Status Exam MSE Comments: This is an obese white male in hospital scrubs with limited grooming and eye contact. No abnormal movements except for psychomotor retardation. Cooperative with exam in no acute distress. Speech was more normal rate and normal volume. Mood described as a little better I think, affect congruent and subdued. Thought process organized. Thought content: Patient denied suicidal or homicidal ideations, there were no delusions reported and paranoid, persecutory, and hyperreligious delusions decreasing, he denied ongoing auditory or visual hallucinations. Attention, concentration and memory appear intact but were not formally tested. He is alert and oriented x3. Insight and judgment are limited, but improving and impulse control limited. 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 1.? Continue current medications, Invega sustenna 156mg 12/25/2022. 2.? Continue every 15 minute checks for safety. 3.? Encourage individual, group and milieu therapies. 4.? Encourage sober living treatment after discharge at the highest level of care to which he is willing to commit. 5.? Work with treatment team to explore what resources including case management he can be connected with at this time. Involuntary Hold Information 96 Hour Hold: 96 Hour Involuntary Admission: No 96 Hour Hold Ending Date: 12/11/22 96 Hour Hold Ending Time: 05:28 Attestations NPU Medical Necessity Statement*: Inpatient hospitalization is medically necessary and the clinically appropriate intervention at this time. We will monitor and make medication changes as indicated.? Likely length of stay 2-4 days. 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
[2022-12-27 14:00] VITALS: BP 130/71; PULSE 61; RESP 16; TEMP 36.6; O2SAT 98
[2022-12-27] MEDS: nicotine 4 mg lozenge MUCOUS MEM ×2 (19:21→21:53)
[2022-12-27 19:56] VITALS: BP 124/80; PULSE 67; RESP 20; TEMP 36.9; O2SAT 96
[2022-12-27] MEDS: quetiapine 100 mg Tablet PO (20:49)
[2022-12-27] MEDS: prazosin 1 mg Capsule 3 MG PO (20:49)
[2022-12-27] MEDS: hyDROXYzine 25 mg Capsule 50 MG PO (21:49)
[2022-12-28 06:00] VITALS: BP 144/77; PULSE 50; RESP 18; TEMP 36.3; O2SAT 97
[2022-12-28] MEDS: fluoxetine 20 mg Capsule PO (07:44)
[2022-12-28] MEDS: OXcarbazepine 300 mg Tablet PO ×2 (07:44→20:04)
--- NOTE | 2022-12-28 11:24 | W.PM.NPUPNS ---
Subjective NPU Subjective: Patient presented today initially talking about discharge. We discussed the plan to work with the social work team for discharge to [facility] as soon as they would receive him. We discussed the possibility of that being tomorrow but we would need to work with the social work team tomorrow to see if that is possible. He discussed having boredom him here on the unit. Otherwise he denied any additional issues. Mental Status Exam MSE Comments: This is an obese white male in hospital scrubs with limited grooming and eye contact. No abnormal movements except for psychomotor retardation. Cooperative with exam in no acute distress. Speech was more normal rate and normal volume. Mood described as a little better I think, affect congruent and subdued. Thought process organized. Thought content: Patient denied suicidal or homicidal ideations, there were no delusions reported and paranoid, persecutory, and hyperreligious delusions diminishing, he denied ongoing auditory or visual hallucinations. Attention, concentration and memory appear intact but were not formally tested. He is alert and oriented x3. Insight and judgment are limited, but improving and impulse control limited. Vitals/I&O/Wt Last Vital Signs Temp 97.4 F L 12/28/22 06:00 Pulse 50 L 12/28/22 06:00 Resp 18 12/28/22 06:00 BP 144/77 12/28/22 06:00 Pulse Ox 97 12/28/22 06:00 O2 Del Method 12/27/22 14:00 Weight last 48 hrs Weight 128.276 kg Data NPU 12/24/22 23:39 12/24/22 23:39 A&P Assessment and plan (1) Suicidal ideation: (2) Major depressive disorder, recurrent, severe with psychotic symptoms: (3) Cannabis use disorder, moderate, in early remission, dependence: (4) Nicotine dependence, unspecified, uncomplicated: (5) Cluster A personality disorder in adult: (6) Generalized anxiety disorder: Plan This is a 27-year-old white male with known history of depression and addiction who presents with suicidal ideation and hallucinations having missed recent dosing of invega sustenna. 1.? Continue current medications, Invega sustenna 156mg 12/25/2022. 2.? Continue every 15 minute checks for safety. 3.? Encourage individual, group and milieu therapies. 4.? Encourage sober living treatment after discharge at the highest level of care to which he is willing to commit. 5.? Work with treatment team to explore what resources including case management he can be connected with at this time. Involuntary Hold Information 96 Hour Hold: 96 Hour Involuntary Admission: No 96 Hour Hold Ending Date: 12/11/22 96 Hour Hold Ending Time: 05:28 Attestations NPU Medical Necessity Statement*: Inpatient hospitalization is medically necessary and the clinically appropriate intervention at this time. We will monitor and make medication changes as indicated.? Likely length of stay 1-3 days. Coding Level of Care Code Acute Code for Chg Fwd Diagnoses Suicidal ideation R45.851 Major depressive disorder, recurrent, severe with psychotic symptoms F33.3 Cannabis use disorder, moderate, in early remission, dependence F12.21 Nicotine dependence, unspecified, uncomplicated F17.200 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
[2022-12-28 14:00] VITALS: BP 136/72; PULSE 72; RESP 18; TEMP 36.7; O2SAT 96
[2022-12-28] MEDS: prazosin 1 mg Capsule 3 MG PO (20:04)
[2022-12-28] MEDS: quetiapine 100 mg Tablet PO (20:04)
[2022-12-28] MEDS: nicotine 4 mg lozenge MUCOUS MEM (20:04)
[2022-12-28 20:38] VITALS: BP 129/78; PULSE 81; RESP 20; TEMP 36.6; O2SAT 96
[2022-12-29 06:00] VITALS: BP 104/64; PULSE 53; RESP 18; TEMP 36.4; O2SAT 97
[2022-12-29] MEDS: fluoxetine 20 mg Capsule PO (08:56)
[2022-12-29] MEDS: OXcarbazepine 300 mg Tablet PO (08:56)
[2022-12-29 09:32] VITALS: BP 104/64; PULSE 53; RESP 18; TEMP 36.4; O2SAT 97
--- NOTE | 2022-12-29 11:02 | P.NPUDS_ITS ---
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: Status: Acute (6) Generalized anxiety disorder: Status: Acute Reason for Visit Reason for Visit: SI Brief History: Braulio Terrazas is a 27 year old male who was recently discharged from the neuropsychiatric unit on 12/11/2022 with a history of psychotic disorder and otherwise specified who was brought into the emergency department after he had reported that for the past 4 to 5 days he had had an increase in the presence of auditory and visual hallucinations. He stated that he had been feeling paranoid about things disappearing from his phone. He had reported that he was having some suicidal thoughts at this time. He reported that he had had problems with concentration and states that he had not been sleeping well. He had reported having a history of psychotic symptoms for for several years and stated that he had previously used inhalants and had huffed gasoline at a young age. He had also endorsed an extended history of substance use stating that he had been drinking at a young age. He reports that he had been scheduled to receive his second dose of Invega Sustenna on 12/17/2022 but he had missed his appointment and had been without his medication to target his psychosis. The patient reported no substantial changes since his last hospitalization Per Previous Discharge on 12/05/22 HPI: Braulio Terrazas is a 27 year old male who presented to the emergency department with the following report: Chief Complaint: Psychiatric Symptoms Stated Complaint: SI Time Seen by Provider: 12/05/22 05:13 Source: patient Mode of arrival: ambulatory Limitations: no limitations History of Present Illness: 27-year-old male has history of schizophrenia along with depression and bipolar disorder he states that over the last few days he been having increased hallucinations along with suicidal ideations he states he has not been taking his meds he supposed be on risperidone he has not been taking them. He denies any worsening improving factors at this time. Associated symptoms: Reports depression He was admitted to the neuropsychiatric unit for definitive treatment of those issues. He presents fairly focused on his somewhat hyper presybeterian, conspiratorial delusions making it hard for him to stay on task and normal question and answering situations. What we were able to glean from the conversation is that he has been hospitalized recently in another hospital in the past 2 to 4 weeks but that he currently has no medications and has not been taking medication. He is reportedly homeless now and has not been able to really meet his needs because he is stuck in a shed possibly on his family's property or having no place to stay but certainly without stability that would allow him to get his mental health issues back on track. In excerpt of his past hospitalization in 2020 is included below for context. His drug screen was only positive for cannabis. We discussed the risk benefits and alternatives of reviewing his medications and restarting some of the medications at appropriate initiation doses and he understood and agreed to proceed as it is documented in this note. Per his 09/17/2021 [facility] inpatient psychiatric discharge summary: Discharge Diagnosis (1) Acute psychosis: Status: Resolved (2) Suicidal ideation: Status: Resolved (3) Major depressive disorder, recurrent, severe with psychotic symptoms: Status: Acute (4) Cannabis use disorder, moderate, in early remission, dependence: Status: Acute (5) Moderate alcohol dependence: Status: Acute (6) Inhalant use disorder, moderate, in sustained remission, dependence: Status: Deleted (7) Nicotine dependence, unspecified, uncomplicated: Status: Acute (8) Cluster A personality disorder in adult: Status: Acute (9) Generalized anxiety disorder: Status: Acute Reason for Visit Reason for Visit: SI Brief History: History of Present Illness Braulio Terrazas is a 26 year old male who presented to the emergency department with the following report: Chief Complaint: Psychiatric Symptoms Stated Complaint: SI Time Seen by Provider: 09/14/21 19:09 History of Present Illness: MD complaint: suicidal ideation and feels depressed Onset (ago): day(s) Duration: constant and getting worse History of same: Yes Relieving factors: none Exacerbating factors: none Associated psychiatric symptoms: depression and suicidal ideation Associated symptoms: Reports auditory hallucinations, delusions and suicidal ideation; Deny homicidal ideation If self harm: admits thoughts of self harm and has plan. He was admitted to the neuropsychiatric unit for definitive treatment of those issues. Patient has recently been discharged from the unit and at that time there were concerns about his readiness for discharge. He presents today discussing that there are things that we discussed again interplay. The fragility of his living arrangements led to him moving out, getting kicked out, breaking up with his girlfriend and then reconnecting with her creating emoti onal turmoil and homelessness. He presented reporting that he started having thoughts to hurt himself/kill himself but denies any new issues outside of the lingering and psychosocial challenges that were part of our concerns about his stability during the last admission. Risk-benefit terms of maintaining his medication at the current doses given that he just changed them in the past week. And he understood agreed receipt as documented in his note. Given the no substantive changes and H&P from a little over a week ago an excerpt from that note is included below for context. Per his 09/05/2021 [facility] inpatient psychiatric evaluation: History of Present Illness Braulio Terrazas is a 26 year old male presented to the emergency department with the following report: Chief Complaint: Psychiatric Symptoms Stated Complaint: SI W/PLAN Time Seen by Provider: 09/04/21 16:21 History of Present Illness: HPI Narrative: Ms Terrazas is a 26-year-old gentleman with history of depression who presents to the emergency department with depression with suicidal ideation. He reports symptoms have been worse over the past month or so without specific exacerbating factors. He describes near constant intrusive thoughts of suicide and actively having to make decisions not to kill himself. His plan is to shoot himself and he does have access to firearms. He misses doses of medication every so often and has been out of his Risperdal for the past 3 days. He denies acute medical complaints. Overall the course of symptoms has been worsening. He has been hospitalized previously for psychiatric reasons though nothing recently. No other specific exacerbating or alleviating factors noted. He was admitted to the neuropsychiatric unit for definitive treatment of those issues. He presents today reporting that things have not changed that much since last time he was in the hospital. He mainly reported that [place] was now [place] girlfriend and their family. Which initially was a positive to be away from his family but recently has turned negative. He reports the main stressor in the home is that he is currently not working and his girlfriend's mother says disparaging things about him behind his back to his girlfriend which has created some contention. Additionally stressed out by his mother's cancer diagnosis, is bank account being empty, and feeling like no matter how hard he works on his mental health and other factors he always ends up at the same place which he reports has created significant despair. He reports that he does not know if we cannot get some stability whether he will be able to avoid killing himself. He discussed a situation where his significant other made him very angry that he is unclear why he did just turn into traffic. We discussed the risk benefits and alternatives of increasing his Prozac to 40 mg p.o. every morning and he understood agreed to proceed as is documented in his note. Reviewed his other medications which appear to be helping. He denies any other substantive changes in his life and an excerpt of his outpatient psychiatric evaluation is included below for context. We discussed seeing whether he had presented to the emergency department enough to get connected with the [facility] program but also discussed the possibility of getting him connected with [facility]. Per his 12/13/2020 [facility] outpatient psychiatric evaluation: [facility] History and Physical Time In: 09:20 Time Out: 10:15 Chief Complaint: I need to get back on medications History of Present Illness: This is a 25-year-old male who is been diagnosed with various diagnoses in the past including schizoaffective disorder, polysubstance use including marijuana, alcohol, nicotine, inhalants, and other substances, in addition to depression and anxiety, and cluster a personality traits. Today he describes a history that certainly consistent with schizoid and schizotypal personality traits and that he has a coping style centered around fantasy world including imaginative but also books and films, but his more recent presentation in the last few years have presented with some paranoid ideations and auditory hallucinations at times but she certainly has good insight into, and may have been exacerbated by continuous drug use including huffing gas starting around age 89 years old, the last time was 2 years ago, heavy alcohol use and marijuana use all of which started very young, alcohol starting at age 12, nicotine starting by age 79 years old, marijuana starting by age [age] years old. Today after discussing his past history and reviewing his to psychiatric admissions that both happened in 2019, I feel that the cluster B personality traits along with anxiety and depression are the most applicable in addition to the substance use. I believe that any psychotic symptoms he had were exacerbated by substance there is no doubt he does have schizoid and schizotypal personality traits. Question of trauma history is also come up and he tells me that he does not have much memory of his childhood, but this sounds as if it is more related to his chronic coughing of gasoline and marijuana use and other substances other than a dissociation process. There does not seem to be a history of severe physical or sexual abuse or even domestic violence but he says he was bullied severely by his brothers and his father was an angry alcoholic and yelled a lot. The patient remembers having depression and suicidal thoughts even in elementary school as a result of the bullying from his older brothers. He tells me that he got so bad that he ended up being a bully himself for a few years. There is no active suicidal thoughts, there is no actual history of suicide attempts, but he has had some cutting superficially for self-harm and in addition he says he often peeled back his fingernails and toenails as a form self-harm the last time this happened was 3 weeks ago. During the session today he does not appear internally preoccupied but he is a little oddly related consistent with a cluster a personality. He is denying active hallucinations at this time but he does when to get back on the Risperdal saying that it helped him with stabilizing his mood but he is unsure if it helped with hallucinations. He does say that the hallucinations were less sinister and had less energy while on medications. History Past Psychiatric History: 2 psychiatric admissions in 2019 were his only admissions and they were each for about a week with suicidal ideations in the context of substance use. Denies actual suicide attempts, has had self-harm in the form of cutting and peeling back to his nails. Family History: Father had depression and alcoholism, a brother could possibly be bipolar, Past Medical History: Denies current medical issues. Substance Use History: Inhalants: Started age 89 years old huffing gasoline, he still coughs on occasion and last used 2 years ago at age 23 which is a little late for puffers as they tend to stop in their teenage years. Alcohol: Started age [age] years old, for a few years he was drinking a 12 pack a day, now he drinks 6 or 7 beers once a week and a few beers on other nights. Marijuana: Started age [age] years old has been a consistent user periods in his life Nicotine: Currently up 3 to 5 mg a day, started smoking cigarettes when he picked him up from his mother's ashtray at age 79 years old. Other: He says he has used other pills in the past including some opiates, muscle relaxers, amphetamines but nothing consistent. Social History: He denies ever being or ever having kids. He did graduate high school in [place], he is currently trying to go to college. Hospital Course Hospital Course He slowly acclimated to the individual, group and milieu therapies provided. He once again presented with medication adherence issues. We gave him his Invega 156 mg IM long-acting injection. He was able to work with the treatment team to assist with appropriate resources and he was connected with [facility] given his addiction challenges. He had significant improvement and was able to contract for safety, outside the hospital prior to discharge. During the hospitalization, patient had routine laboratory studies which were within normal limits except for few outliers. Additionally there was a general medical evaluation which was also within normal limits and revealed no new acute processes. Discharge Summary: At the time of discharge, he denied psychosis or lethality. Mood and anxiety were well managed. Patient endorsed a plan to avoid all drugs of abuse and follow-up with the aftercare recommendations of the treatment team. Patient was evaluated and deemed to be absent credible lethality, and had achieved the maximum benefit from an inpatient hospitalization, so was discharged. He was discharged directly to [facility] inpatient rehab. Involuntary Hold Information 96 Hour Hold: 96 Hour Involuntary Admission: No 96 Hour Hold Ending Date: 12/11/22 96 Hour Hold Ending Time: 05:28 Mental Status Exam MSE Comments: This is an obese white male in hospital scrubs with limited grooming and eye contact. No abnormal movements except for psychomotor retardation. Cooperative with exam in no acute distress. Speech was more normal rate and normal volume. Mood described as a little better I think, affect congruent and subdued. Thought process organized. Thought content: Patient denied suicidal or homicidal ideations, there were no delusions reported and paranoid, persecutory, and hyperreligious delusions diminishing, he denied ongoing auditory or visual hallucinations. Attention, concentration and memory appear intact but were not formally tested. He is alert and oriented x3. Insight and judgment are limited, but improving and impulse control limited. Discharge Data Studies Completed and Pending: Laboratory Results WBC 8.4 10^3/uL (4.0- 10.0) 12/24/22 23:39 RBC 4.39 10^6/uL (4.1 -5.3) 12/24/22 23:39 Hgb 12.6 g/dL (11.7-1 6.6) 12/24/22 23:39 Hct 38.3 % (42.0-52.0 ) L 12/24/22 23: MCV 87.2 fl (80-94) 12/24/22 23: MCH 28.7 pg (28.0-34. 0) 12/24/22 23: MCHC 32.9 g/dL (30.0-3 6.0) 12/24/22 23: RDW 13.0 % (12.1-15.1 ) 12/24/22 23: Plt Count 168 10^3/cmm (130 -400) 12/24/22 23: MPV 11.4 fL (7.4-10.4 ) H 12/24/22 23:39 Neut % (Auto) 59.4 % 12/24/22 23:39 Lymph % (Auto) 33.4 % 12/24/22 23:39 [place] % (Auto) 5.3 % 12/24/22 23:39 Eos % (Auto) 1.6 % 12/24/22 23:39 Baso % (Auto) 0.2 % 12/24/22 23:39 Neut # (Auto) 4.96 10^3/uL (1.8 -7.7) 12/24/22 23:39 Lymph # (Auto) 2.8 10^3/uL (0.8- 4.8) 12/24/22 23:39 [place] # (Auto) 0.4 10^3/uL (0.2- 0.9) 12/24/22 23:39 Eos # (Auto) 0.1 10^3/uL (0.0- 0.8) 12/24/22 23:39 Baso # (Auto) 0.0 10^3/uL (0.0- 0.1) 12/24/22 23:39 Nucleated RBC % (a uto) 0 % 12/24/22 23: Nucleated RBCs # 0.0 /100WBC 12/24/22 23:39 Sodium 137 mmol/L (136-1 45) 12/24/22 23:39 Potassium 3.6 mmol/L (3.5-5 .1) 12/24/22 23:39 Chloride 102 mmol/L (98-10 7) 12/24/22 23:39 Carbon Dioxide 25 mmol/L (22-29) 12/24/22 23:39 Anion Gap 13.6 (5-19) 12/24/22 23:39 BUN 14 mg/dL (6-20) 12/24/22 23:39 Creatinine 1.0 mg/dL (0.7-1. 2) 12/24/22 23:39 GFR Calculation 91.0 mL/min (90-1 30) 12/24/22 23:39 Glucose 85 mg/dL (65-115) 12/24/22 23:39 Calculated Osmolal ity 284 mOsm/kg (285- 295) L 12/24/22 23:39 Calcium 9.1 mg/dL (8.5-10 .5) 12/24/22 23:39 Total Bilirubin 0.2 mg/dL (0.15-1 .2) 12/24/22 23:39 AST 20 U/L (0-40) 12/24/22 23:39 ALT 31 U/L (0-41) 12/24/22 23:39 Alkaline Phosphata se 67 U/L (40-130) 12/24/22 23:39 Total Protein 6.6 g/dL (6.6-8.7 ) 12/24/22 23:39 Albumin 4.0 g/dL (3.5-5.2 ) 12/24/22 23:39 Globulin 2.6 g/dL (1.3-4.6 ) 12/24/22 23:39 Salicylates 0.6 mg/dL (3-10) L 12/24/22 23:39 Urine Opiates Scre en Negative ng/mL (N egative) 12/24/22 23:07 Acetaminophen < 5.0 ug/mL (10-3 0) L 12/24/22 23:39 Ur Barbiturates Sc reen Negative ng/mL (N egative) 12/24/22 23:07 Ur Phencyclidine S crn Negative ng/mL (N egative) 12/24/22 23:07 Ur Amphetamines Sc reen Negative ng/mL (N egative) 12/24/22 23:07 U Benzodiazepines Scrn Negative ng/mL (N egative) 12/24/22 23:07 Urine Cocaine Scre en Negative ng/mL (N egative) 12/24/22 23:07 U Marijuana (THC) Screen Positive ng/mL (N egative) H 12/24/22 23:07 Ethyl Alcohol < 10 mg/dL (0-10) 12/24/22 23:39 Vitals: Last Vital Signs Temp 97.5 F L 12/29/22 09:32 Pulse 53 L 12/29/22 09:32 Resp 18 12/29/22 09:32 BP 104/64 12/29/22 09:32 Pulse Ox 97 12/29/22 09:32 O2 Del Method 12/29/22 06:00 Discharge Plan Discharge Patient Disposition: Home Condition: Stable Prescriptions: Continued Minipress 1 mg capsule 3 mg PO BEDTIME 30 Days Qty: 90 1RF Rx Instructions: Last filled 10/27/22 Trileptal 300 mg tablet 300 mg PO 2XD 30 Days Qty: 60 1RF Rx Instructions: Last filled 10/27/22 Seroquel 100 mg tablet 100 mg PO BEDTIME 30 Days Qty: 30 1RF Rx Instructions: Last filled 10/27/22 Prozac 20 mg capsule 20 mg PO DAILY 30 Days Qty: 30 1RF Rx Instructions: Last filled 10/27/22 hydroxyzine pamoate 25 mg Capsule 50 mg PO Q6H PRN (Reason: Anxiety) 30 Days Qty: 120 1RF Invega Sustenna 156 mg/mL syringe 156 mg IM Q30D 28 Days Qty: 1 1RF Rx Instructions: Continue with plan for next injection 01/14/23 IM Discharge Orders: Discharge Order (Routine); Ordered 12/29/22 Ordered By: Timur Huntley Referrals: [facility] [Outside] - 01/01/23 2:30 pm [facility] [Outside] - 12/29/22 Discharge Diet: Regular Discharge Activity: Resume usual activity Patient Instructions: Psychotic Disorder (GEN), Opioid Safety Discharge Attestations NPU Time Spent in Discharge Care*: less than 30 min Specific Discharge Activities: Specific discharge activities: educating patient, discussing with watch case polisher/social workers/dc planners, documenting/other paperwork and evaluating patient/reviewing data Coding Level of Care Code Acute [facility] [place] note Diagnoses Suicidal ideation R45.851 Major depressive disorder, recurrent, severe with psychotic symptoms F33.3 Cannabis use disorder, moderate, in early remission, dependence F12.21 Nicotine dependence, unspecified, uncomplicated F17.200 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
--- NOTE | 2022-12-29 11:54 | PC.NURSE ---
discharge instructions discussed and left with patient. no questions asked pt stated understanding and compliance. waiting for ride from [facility] for departure.
== END 2022-12-29 12:19 | disposition home or self-care (01) | DRG 885 ==
LOC: ER 12-25 00:23 → NP 12-25 00:38
PROVIDERS: Admitting Provider Psychiatry & Neurology Psychiatry; Emergency Provider Emergency Medicine; Visit Provider Psychiatry & Neurology Psychiatry
DX: F25.1 Schizoaffective disorder, depressive type (principal); R45.851 Suicidal ideations; Z59.01 Sheltered homelessness; F12.20 Cannabis dependence, uncomplicated; F18.21 Inhalant dependence, in remission; F17.290 Nicotine dependence, other tobacco product, uncomplicated; F41.1 Generalized anxiety disorder; F10.20 Alcohol dependence, uncomplicated
CPT/HCPCS: 80053; 80306; 80307; 85025; 96372; 97150; 97165; 99238; 99285

== ENCOUNTER 2023-02-03 09:43 | Inpatient (IN) | payer MEDICAID, SELFPAY ==
[2021-09-25 16:09] VITALS: BMI 39.9
[2023-02-03 09:46] VITALS: BP 130/81; PULSE 70; RESP 16; TEMP 36.4; O2SAT 98; BMI 35.5
--- NOTE | 2023-02-03 09:53 | ED.C_ITS ---
HPI - Psych General: Chief Complaint: Psychiatric Symptoms Stated Complaint: SI Time Seen by Provider: 02/03/23 09:44 Source: patient Mode of arrival: ambulatory Limitations: no limitations History of Present Illness: Patient is a 27-year-old male who presents to ED today for evaluation of suicidal ideations. Patient states he has felt suicidal for several days now. He states he has a plan to run out in front of traffic. Patient reportedly is at [facility] from alcohol abuse and he states many of the residents are causing him to feel suicidal. He states it is a high stress/high emotion environment and he does not seem to be coping well. He does report previous suicide attempts. Patient states he was released from [facility] approximately a month and a half ago. He has been taking all of his psychiatric medications as prescribed. Reports hallucinations but states he has schi zophrenia so these are chronic. MD complaint: suicidal ideation and feels depressed Onset (ago): day(s) Duration: constant History of same: Yes Context: significant life stressor Associated psychiatric symptoms: depression and suicidal ideation Associated symptoms: Reports auditory hallucinations, visual hallucinations, depression and suicidal ideation; Deny homicidal ideation Treatments prior to arrival: none If self harm: admits thoughts of self harm Review of Systems Const: Denies: fever(s) or chills Card: Denies: chest pain, palpitations, lightheadedness or syncope Resp: Denies: dyspnea GI: Denies: abdominal pain, nausea, vomiting or diarrhea Skin/Breast: Denies: rash Neuro: Denies: headache(s) Psych: Reports: anxiety, depression, hopelessness, visual hallucinations, auditory hallucinations and suicidal ideation; Denies: paranoia or homicidal ideation [facility] ED PFSH: Medical History Major depressive disorder, recurrent severe without psychotic features Psychiatric care Social History Smoking and tobacco status: current every day smoker e-cigarettes E-Cigarette Details: vaporizer device and with nicotine E-cig/vape details: 5 mg/Day Quit status (tobacco): considering quitting Second hand smoke exposure: No Current gender identity: Male Physical Exam Const: COMMON NORMALS: no acute distress, patient oriented x3, alert and well nourished GENERAL APPEARANCE: cooperative and well kempt Resp: COMMON NORMALS: normal respiratory effort and clear to auscultation bilaterally AUSCULTATION: clear to auscultation bilaterally Cardio: COMMON NORMALS: regular rate and regular rhythm RATE: regular rate RHYTHM: regular rhythm Neuro: COMMON NORMALS: patient oriented x3 SENSORIUM/ORIENTATION: Yes alert Psych: COMMON NORMALS: mental status grossly normal, Normal thought process present, cooperative, normal affect, speech normal, activity/motor behavior normal and denies homicidal ideation APPEARANCE: Yes grossly normal and Yes well kempt ATTITUDE: Yes calm ACTIVITY/MOTOR BEHAVIOR: No psychomotor agitation and Yes Avoids eye contact (attititude/behavior) SPEECH: Yes normal speech MOOD & AFFECT: Yes depressed mood THOUGHT PROCESS: Normal thought process present ATTENTION/CONCENTRATION: Yes attention grossly intact and Yes concentration grossly intact MEMORY/COGNITION: Yes memory grossly intact and Yes cognition grossly intact INSIGHT: Good insight present (Psych) JUDGEM ENT: Good judgement present (Psych) Course Consultations: Consultation #1: Dr. Huntley-accepts to [facility] Vital Signs: Vital signs: Vital Signs Temperature 97.5 F L 02/03/23 09:46 Pulse Rate 70 02/03/23 09:46 Respiratory Rate 16 02/03/23 09:46 Blood Pressure 130/81 02/03/23 09:46 Pulse Oximetry 98 02/03/23 09:46 Oxygen Delivery Me thod Room Air 02/03/23 09:46 MDM - Psych Medical Decision Making Patient will be an admit to [facility] to Dr. Huntley for treatment and evaluation of his suicidal ideations. Patient is voluntary at this time. Lab Data 02/03/23 10:35 02/03/23 10:35 Laboratory Results WBC 6.2 10^3/uL (4.0-10.0) 02/03/23 10:35 RBC 5.02 10^6/uL (4.1-5.3) 02/03/23 10:35 Hgb 14.2 g/dL (11.7-16.6) 02/03/23 10:35 Hct 42.5 % (42.0-52.0) 02/03/23 10:35 MCV 84.7 fl (80-94) 02/03/23 10:35 MCH 28.3 pg (28.0-34.0) 02/03/23 10:35 MCHC 33.4 g/dL (30.0-36.0) 02/03/23 10:35 RDW 12.7 % (12.1-15.1) 02/03/23 10:35 Plt Count 163 10^3/cmm (130-400) 02/03/23 10:35 MPV 10.5 fL (7.4-10.4) H 02/03/23 10:35 Neut % (Auto) 57.3 % 02/03/23 10:35 Lymph % (Auto) 32.3 % 02/03/23 10:35 [place] % (Auto) 7.8 % 02/03/23 10:35 Eos % (Auto) 1.8 % 02/03/23 10:35 Baso % (Auto) 0.3 % 02/03/23 10:35 Neut # (Auto) 3.53 10^3/uL (1.8-7.7) 02/03/23 10:35 Lymph # (Auto) 2.0 10^3/uL (0.8-4.8) 02/03/23 10:35 [place] # (Auto) 0.5 10^3/uL (0.2-0.9) 02/03/23 10:35 Eos # (Auto) 0.1 10^3/uL (0.0-0.8) 02/03/23 10:35 Baso # (Auto) 0.0 10^3/uL (0.0-0.1) 02/03/23 10:35 Nucleated RBC % (auto) 0 % 02/03/23 10:35 Nucleated RBCs # 0.0 /100WBC 02/03/23 10:35 Sodium 135 mmol/L (136-145) L 02/03/23 10:35 Potassium 4.3 mmol/L (3.5-5.1) 02/03/23 10:35 Chloride 101 mmol/L (98-107) 02/03/23 10:35 Carbon Dioxide 25 mmol/L (22-29) 02/03/23 10:35 Anion Gap 13.3 (5-19) 02/03/23 10:35 BUN 8 mg/dL (6-20) 02/03/23 10:35 Creatinine 0.6 mg/dL (0.7-1.2) L 02/03/23 10:35 GFR Calculation 164.2 mL/min (90-130) H 02/03/23 10:35 Glucose 89 mg/dL (65-115) 02/03/23 10:35 Calculated Osmolality 278 mOsm/kg (285-295) L 02/03/23 10:35 Calcium 9.4 mg/dL (8.5-10.5) 02/03/23 10:35 Total Bilirubin 0.2 mg/dL (0.15-1.2) 02/03/23 10:35 AST 24 U/L (0-40) 02/03/23 10:35 ALT 42 U/L (0-41) H 02/03/23 10:35 Alkaline Phosphatase 74 U/L (40-130) 02/03/23 10:35 Total Protein 6.9 g/dL (6.6-8.7) 02/03/23 10:35 Albumin 4.3 g/dL (3.5-5.2) 02/03/23 10:35 Globulin 2.6 g/dL (1.3-4.6) 02/03/23 10:35 Salicylates < 0.3 mg/dL (3-10) L 02/03/23 10:35 Acetaminophen < 5.0 ug/mL (10-30) L 02/03/23 10:35 Ethyl Alcohol < 10 mg/dL (0-10) 02/03/23 10:35 Discharge Plan Discharge Patient Disposition: Admitted As Inpatient Clinical Impression: Suicidal ideation Condition: Stable Prescriptions: No Action Trileptal 300 mg tablet 300 mg PO BID Seroquel 100 mg tablet 100 mg PO BEDTIME@21 Prozac 20 mg capsule 20 mg PO DAILY@06 hydroxyzine pamoate 25 mg capsule 50 mg PO QID PRN (Reason: Anxiety) Invega Sustenna 156 mg/mL syringe 156 mg IM Q28D prazosin [Minipress] 1 mg capsule 3 mg PO BEDTIME 30 Days Qty: 90 1RF Patient Instructions: Opioid Safety, Pain Management Coding Level of Care Code ED [employer] for Eric Glover
[2023-02-03 10:44] LABS: Basophils % 0.3 %; Eosinophils # 0.1 10^3/uL (0.0-0.8); Eosinophils % 1.8 %; Hematocrit 42.5 % (42.0-52.0); Hemoglobin 14.2 g/dL (11.7-16.6); Lymphocytes % 32.3 %; Mean Corpuscular HGB Conc 33.4 g/dL (30.0-36.0); Mean Corpuscular Hemoglobin 28.3 pg (28.0-34.0); Mean Corpuscular Volume 84.7 fl (80-94); Mean Platelet Volume 10.5 fL (7.4-10.4); Monocytes # 0.5 10^3/uL (0.2-0.9); Monocytes % 7.8 %; Neutrophils # 3.53 10^3/uL (1.8-7.7); Neutrophils % 57.3 %; Nucleated Red Blood Cells % 0 %; Platelet Count 163 10^3/cmm (130-400); Red Blood Count 5.02 10^6/uL (4.1-5.3); Red Cell Distribution Width 12.7 % (12.1-15.1); White Blood Count 6.2 10^3/uL (4.0-10.0)
--- NOTE | 2023-02-03 10:56 | PC.PHAR ---
pt is from [facility]-per berhane from [facility] states the pt only takes the medications entered-
[2023-02-03 10:59] LABS: Alanine Aminotransferase 42 U/L (0-41); Albumin Level 4.3 g/dL (3.5-5.2); Alkaline Phosphatase 74 U/L (40-130); Anion Gap 13.3 (5-19); Aspartate Amino Transferase 24 U/L (0-40); Blood Urea Nitrogen 8 mg/dL (6-20); Calcium 9.4 mg/dL (8.5-10.5); Carbon Dioxide 25 mmol/L (22-29); Chloride 101 mmol/L (98-107); Globulin 2.6 g/dL (1.3-4.6); Glomerular Filtration Rate 164.2 mL/min (90-130); Glucose 89 mg/dL (65-115); Osmolality Calculated 278 mOsm/kg (285-295); Potassium 4.3 mmol/L (3.5-5.1); Sodium 135 mmol/L (136-145); Total Bilirubin 0.2 mg/dL (0.15-1.2); Total Protein 6.9 g/dL (6.6-8.7)
[2023-02-03 11:01] LABS: Acetaminophen < 5.0 ug/mL (10-30); Alcohol Level < 10 mg/dL (0-10); Salicylate < 0.3 mg/dL (3-10)
--- NOTE | 2023-02-03 13:03 | PC.NURSE ---
Pt resting on right side in his bed. PSA at bedside. No other needs at this time. Pt has admit orders - waiting on a bed assignment.
[2023-02-03 13:53] VITALS: BP 124/86; PULSE 71; RESP 18; TEMP 36.3; O2SAT 99
[2023-02-03 14:00] VITALS: BP 124/86; PULSE 71; RESP 18; TEMP 36.3; O2SAT 99
--- NOTE | 2023-02-03 14:00 | PC.NURSE ---
pt arrive to unit accompanied by Security.
[2023-02-03 14:24] VITALS: BP 124/86; PULSE 71; RESP 18; TEMP 36.3; O2SAT 99
[2023-02-03 20:21] VITALS: BP 137/73; PULSE 69; RESP 15; TEMP 36.3; O2SAT 96
[2023-02-04 06:00] VITALS: RESP 16
--- NOTE | 2023-02-04 09:01 | P.NPUHP_ITS ---
Providers/Chief Complaint Admitting Physician: Timur Huntley MD Chief Complaint: SI HPI N[facility] History of Present Illness Braulio Terrazas is a 27 year old male to the emergency department with the following report: Chief Complaint: Psychiatric Symptoms Stated Complaint: SI Time Seen by Provider: 02/03/23 09:44 Source: patient Mode of arrival: ambulatory Limitations: no limitations History of Present Illness: Patient is a 27-year-old male who presents to ED today for evaluation of suicidal ideations. Patient states he has felt suicidal for several days now. He states he has a plan to run out in front of traffic. Patient reportedly is at [facility] rehabilitation from alcohol abuse and he states many of the residents are causing him to feel suicidal. He states it is a high stress/high emotion environment and he does not seem to be coping well. He does report previous suicide attempts. Patient states he was released from [facility] approximately a month and a half ago. He has been taking all of his psychiatric medications as prescribed. Reports hallucinations but states he has schizophrenia so these are chronic. complaint: suicidal ideation and feels depressed Onset (ago): day(s) Duration: constant History of same: Yes Context: significant life stressor Associated psychiatric symptoms: depression and suicidal ideation Associated symptoms: Reports auditory hallucinations, visual hallucinations, depression and suicidal ideation; Deny homicidal ideation Treatments prior to arrival: none If self harm: admits thoughts of self harm He was admitted to the neuropsychiatric unit for definitive treatment of those issues. He presents today reporting that he is just feeling depressed. He was just discharged from here 12/29/2022 and an excerpt of that discharge is included below for context and the fact that after he left here he went directly to [facility] and is now coming back from [facility]. He reports that he is near completion of the program and they are looking for options for him. He acknowledged that probably some of the sadness of feeling overwhelmed has to do with the fact that he is homeless and they have not found a viable option for him at this point though they are fully prepared to receive him back at discharge from here. We discussed the fact that his Prozac is only a 20 mg which is a fairly low-dose and discussed the risks, benefits and alternatives of increasing that to 40 mg and he understood and agreed to proceed as is documented in this note. We discussed this hopefully being a short stay was an increase in his antidepressant and collaboration with [facility] for him to return when he is able to contract for safety. 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 He stated that he had been feeling paranoid about things disappearing from his phone. He had reported that he was having some suicidal thoughts at this time. He reported that he had had problems with concentration and states that he had not been sleeping well. He had reported having a history of psychotic symptoms for for several years and stated that he had previously used inhalants and had huffed gasoline at a young age. He had also endorsed an extended history of substance use stating that he had been drinking at a young age. He reports that he had been scheduled to receive his second dose of Invega Sustenna on 12/17/2022 but he had missed his appointment and had been without his medication to target his psychosis. The patient reported no substantial changes since his last hospitalization Per Previous Discharge on 12/05/22 HPI: Braulio Terrazas is a 27 year old male who presented to the emergency department with the following report: Chief Complaint: Psychiatric Symptoms Stated Complaint: SI Time Seen by Provider: 12/05/22 05:13 Source: patient Mode of arrival: ambulatory Limitations: no limitations History of Present Illness: 27-year-old male has history of schizophrenia along with depression and bipolar disorder he states that over the last few days he been having increased hallucinations along with suicidal ideations he states he has not been taking his meds he supposed be on risperidone he has not been taking them. He denies any worsening improving factors at this time. Associated symptoms: Reports depression He was admitted to the neuropsychiatric unit for definitive treatment of those issues. He presents fairly focused on his somewhat hyper latter day, conspiratorial delusions making it hard for him to stay on task and normal question and answering situations. What we were able to glean from the conversation is that he has been hospitalized recently in another hospital in the past 2 to 4 weeks but that he currently has no medications and has not been taking medication. He is reportedly homeless now and has not been able to really meet his needs because he is stuck in a shed possibly on his family's property or having no place to stay but certainly without stability that would allow him to get his mental health issues back on track. In excerpt of his past hospitalization in 2020 is included below for context. His drug screen was only positive for cannabis. We discussed the risk benefits and alternatives of reviewing his medications and restarting some of the medications at appropriate initiation doses and he understood and agreed to proceed as it is documented in this note. 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: Status: Acute (9) Generalized anxiety disorder: Status: Acute Reason for Visit Reason for Visit: SI Brief History: History of Present Illness Braulio Terrazas is a 26 year old male who presented to the emergency department with the following report: Chief Complaint: Psychiatric Symptoms Stated Complaint: SI Time Seen by Provider: 09/14/21 19:09 History of Present Illness: MD complaint: suicidal ideation and feels depressed Onset (ago): day(s) Duration: constant and getting worse History of same: Yes Relieving factors: none Exacerbating factors: none Associated psychiatric symptoms: depression and suicidal ideation Associated symptoms: Reports auditory hallucinations, delusions and suicidal ideation; Deny homicidal ideation If self harm: admits thoughts of self harm and has plan. He was admitted to the neuropsychiatric unit for definitive treatment of those issues. Patient has recently been discharged from the unit and at that time there were concerns about his readiness for discharge. He presents today discussing that there are things that we discussed again interplay. The fragility of his living arrangements led to him moving out, getting kicked out, breaking up with his girlfriend and then reconnecting with her creating emotional turmoil and homelessness. He presented reporting that he started having thoughts to hurt himself/kill himself but denies any new issues outside of the lingering and psychosocial challenges that were part of our concerns about his stability during the last admission. Risk-benefit terms of maintaining his medication at the current doses given that he just changed them in the past week. And he understood agreed receipt as documented in his note. Given the no substantive changes and H&P from a little over a week ago an excerpt from that note is included below for context. Per his 09/05/2021 [facility] inpatient psychiatric evaluation: History of Present Illness Braulio Terrazas is a 26 year old male presented to the emergency department with the following report: Chief Complaint: Psychiatric Symptoms Stated Complaint: SI W/PLAN Time Seen by Provider: 09/04/21 16:21 History of Present Illness: HPI Narrative: Ms Terrazas is a 26-year-old gentleman with history of depression who presents to the emergency department with depression with suicidal ideation. He reports symptoms have been worse over the past month or so without specific exacerbating factors. He describes near constant intrusive thoughts of suicide and actively having to make decisions not to kill himself. His plan is to shoot himself and he does have access to firearms. He misses doses of medication every so often and has been out of his Risperdal for the past 3 days. He denies acute medical complaints. Overall the course of symptoms has been worsening. He has been hospitalized previously for psychiatric reasons though nothing recently. No other specific exacerbating or alleviating factors noted. He was admitted to the neuropsychiatric unit for definitive treatment of those issues. He presents today reporting that things have not changed that much since last time he was in the hospital. He mainly reported that [place] girlfriend and their family. Which initially was a p ositive to be away from his family but recently has turned negative. He reports the main stressor in the home is that he is currently not working and his girlfriend's mother says disparaging things about him behind his back to his girlfriend which has created some contention. Additionally stressed out by his mother's cancer diagnosis, is bank account being empty, and feeling like no matter how hard he works on his mental health and other factors he always ends up at the same place which he reports has created significant despair. He reports that he does not know if we cannot get some stability whether he will be able to avoid killing himself. He discussed a situation where his significant other made him very angry that he is unclear why he did just turn into traffic. We discussed the risk benefits and alternatives of increasing his Prozac to 40 mg p.o. every morning and he understood agreed to proceed as is documented in his note. Reviewed his other medications which appear to be helping. He denies any other substantive changes in his life and an excerpt of his outpatient psyc hiatric evaluation is included below for context. We discussed seeing whether he had presented to the emergency department enough to get connected with the [facility] program but also discussed the possibility of getting him connected with [facility]. Per his 12/13/2020 [facility] outpatient psychiatric evaluation: [facility] History and Physical Time In: 09:20 Time Out: 10:15 Chief Complaint: I need to get back on medications History of Present Illness: This is a 25-year-old male who is been diagnosed with various diagnoses in the past including schizoaffective disorder, polysubstance use including marijuana, alcohol, nicotine, inhalants, and other substances, in addition to depression and anxiety, and cluster a personality traits. Today he describes a history that certainly consistent with schizoid a nd schizotypal personality traits and that he has a coping style centered around fantasy world including imaginative but also books and films, but his more recent presentation in the last few years have presented with some paranoid ideations and auditory hallucinations at times but she certainly has good insight into, and may have been exacerbated by continuous drug use including huffing gas starting around age 89 years old, the last time was 2 years ago, heavy alcohol use and marijuana use all of which started very young, alcohol starting at age 12, nicotine starting by age 79 years old, marijuana starting by age [age] years old. Today after discussing his past history and reviewing his to psychiatric admissions that both happened in 2019, I feel that the cluster B personality traits along with anxiety and depression are the most applicable in addition to the substance use. I believe that any psychotic symptoms he had were exacerbated by substance there is no doubt he does have schizoid and schizotypal personality traits. Question of trauma history is also come up and he tells me that he does not have much memory of his childhood, but this sounds as if it is more related to his chronic coughing of gasoline and marijuana use and other substances other than a dissociation process. There does not seem to be a history of severe physical or sexual abuse or even domestic violence but he says he was bullied severely by his brothers and his father was an angry alcoholic and yelled a lot. The patient remembers having depression and suicidal thoughts even in elementary school as a result of the bullying from his older brothers. He tells me that he got so bad that he ended up being a bully himself for a few years. There is no active suicidal thoughts, there is no actual history of suicide attempts, but he has had some cutting superficially for self-harm and in addition he says he often peeled back his fingernails and toenails as a form self-harm the last time this happened was 3 weeks ago. During the session today he does not appear internally preoccupied but he is a little oddly related consistent with a cluster a personality. He is denying active hallucinations at this time but he does when to get back on the Risperdal saying that it helped him with stabilizing his mood but he is unsure if it helped with hallucinations. He does say that the hallucinations were less sinister and had less energy while on medications. History Past Psychiatric History: 2 psychiatric admissions in 2019 were his only admissions and they were each for about a week with suicidal ideations in the context of substance use. Denies actual suicide attempts, has had self-harm in the form of cutting and peeling back to his nails. Family History: Father had depression and alcoholism, a brother could possibly be bipolar, Past Medical History: Denies current medical issues. Substance Use History: Inhalants: Started age 89 years old huffing gasoline, he still coughs on occasion and last used 2 years ago at age 23 which is a little late for puffers as they tend to stop in their teenage years. Alcohol: Started age [age] years old, for a few years he was drinking a 12 pack a day, now he drinks 6 or 7 beers once a week and a few beers on other nights. Marijuana: Started age [age] years old has been a consistent user periods in his life Nicotine: Currently up 3 to 5 mg a day, started smoking cigarettes when he picked him up from his mother's ashtray at age 79 years old. Other: He says he has used other pills in the past including some opiates, muscle relaxers, amphetamines but nothing consistent. Social History: He denies ever being or ever having kids. He did graduate high school in [place], he is currently trying to go to college. Hospital Course He slowly acclimated to the individual, group and milieu therapies provided. He once again presented with medication adherence issues. We gave him his Invega 156 mg IM long-acting injection. He was able to work with the treatment team to assist with appropriate resources and he was connected with [facility] given his addiction challenges. He had significant improvement and was able to contract for safety, outside the hospital prior to discharge. During the hospitalization, patient had routine laboratory studies which were within normal limits except for few outliers. Additionally there was a general medical evaluation which was also within normal limits and revealed no new acute processes. Discharge Summary: At the time of discharge, he denied psychosis or lethality. Mood and anxiety were well managed. Patient endorsed a plan to avoid all drugs of abuse and follow-up with the aftercare recommendations of the treatment team. Patient was evaluated and deemed to be absent credible lethality, and had achieved the maximum benefit from an inpatient hospitalization, so was discharged. He was discharged directly to [facility] inpatient rehab. Meds NPU Home Medications Medication Instructions Recorded Confirmed Last Taken Type prazosin 1 mg capsule (Minipress) 3 mg PO BEDTIME 30 days #90 caps 12/29/2211/2702/02/23 20:53 Rx fluoxetine 20 mg capsule 20 mg PO DAILY 02/03/23 02/03/23 02/03/23 07:36 History fluoxetine 20 mg capsule (Prozac) 20 mg PO DAILY@06 02/03/23 02/03/23 02/03/23 07:36 History hydroxyzine pamoate 25 mg capsule 50 mg PO QID PRN Anxiety 02/03/23 02/03/23 02/03/23 07:37 History oxcarbazepine 300 mg tablet 300 mg PO BID 02/03/23 02/03/23 02/02/23 History (Trileptal) paliperidone palmitate 156 mg/mL 156 mg IM Q28D 02/03/23 02/03/23 01/14/23 History intramuscular syringe (Invega Sustenna) quetiapine 100 mg tablet (Seroquel) 100 mg PO BEDTIME@21 02/03/23 02/03/23 01/07/23 20:53 History bismuth subsalicylate 262 mg/15 mL 524 mg PO Q1H PRN Nicotine Cravings 02/04/23 02/04/23 01/05/23 07:46 History oral suspension (Pepto-Bismol) nicotine (polacrilex) 4 mg buccal 4 mg buccal Q4H PRN Nicotine 02/04/23 02/04/23 02/03/23 07:35 History lozenge (Nicorette) Cravings Allergies Allergy/AdvReac Type Severity Reaction Status Date / Time No Known Allergies Allergy Verified 02/03/23 10:56 PFSH NPU PFSH: Medical History Major depressive disorder, recurrent severe without psychotic features Psychiatric care Social History Smoking and tobacco status: current every day smoker e-cigarettes E-Cigarette Details: vaporizer device and with nicotine E-cig/vape details: 5 mg/Day Quit status (tobacco): considering quitting Second hand smoke exposure: No Current gender identity: Male Mental Status Exam MSE Comments: This is an obese white male in hospital scrubs with limited grooming and eye contact. No abnormal movements except for psychomotor retardation. Cooperative with exam in mild to moderate distress. Speech was decreased rate and normal volume. Mood described as depressed, affect congruent. Thought process organiz ed. Thought content: Patient endorsed some suicidal but denied homicidal ideations, there were no delusions reported or noted, he denied any visual hallucinations but endorses auditory hallucinations. Attention, concentration and memory appear intact but were not formally tested. He is alert and oriented x3. Insight, judgment and impulse control are limited. 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 1.? Continue current medications, except increase Prozac to 40 mg p.o. every morning. 2.? Continue every 15 minute checks for safety. 3.? Encourage individual, group and milieu therapies. 4.? Encourage sober living treatment after discharge at the highest level of care to which he is willing to commit. 5.? Work with treatment team to explore what resources including case management he can be connected with at this time. He is appearing to have some dependent personality traits that might be showing themselves at this stressful moment of change for him. Involuntary Hold Information 96 Hour Hold: 96 Hour Involuntary Admission: No 96 Hour Hold Ending Date: 12/11/22 96 Hour Hold Ending Time: 05:28 Attestations [facility] Medical Necessity Statement*: Inpatient hospitalization is medically necessary and the clinically appropriate intervention at this time. Patient will be here for at least 2 midnights. We will monitor and make medication changes as indicated.? Likely length of stay 3-5 days. Coding Level of Care Code Acute Code for 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
[2023-02-04] MEDS: fluoxetine 20 mg Capsule PO (13:40)
[2023-02-04] MEDS: OXcarbazepine 300 mg Tablet PO ×2 (13:40→20:39)
[2023-02-04 14:00] VITALS: BP 126/63; PULSE 66; RESP 18; TEMP 36.6; O2SAT 97
[2023-02-04 14:14] LABS: Amphetamines Screen Urine Negative (Negative); Barbiturates Screen Urine Negative (Negative); Benzodiazepines Screen Urine Negative (Negative); Cocaine Screen Urine Negative (Negative); Opiate Screen Urine Negative (Negative); PCP Screen Urine Negative (Negative); THC Screen Urine Positive (Negative)
[2023-02-04] MEDS: quetiapine 100 mg Tablet PO (20:39)
[2023-02-04] MEDS: prazosin 1 mg Capsule 3 MG PO (20:39)
[2023-02-04 21:07] VITALS: BP 89/59; PULSE 116; RESP 18; O2SAT 94
[2023-02-05 06:00] VITALS: BP 116/69; PULSE 113; RESP 18; TEMP 36.4; O2SAT 96
[2023-02-05] MEDS: OXcarbazepine 300 mg Tablet PO ×2 (08:37→20:24)
[2023-02-05] MEDS: fluoxetine 20 mg Capsule 40 MG PO (08:37)
--- NOTE | 2023-02-05 12:20 | P.NPUPN_ITS ---
Subjective NPU Subjective: Patient presented today reporting that he was doing a little better. He reported that he was tolerating the increase in the Prozac fine and that he was feeling less distressed. We discussed the fact that this treatment team has been working with [facility] and they are willing to accept him back once he is ready for discharge. We talked about trying to manage that plan over the next 48 hours. But mostly wanting him to be ready to face the challenges of going back to [facility], working with him to find some more permanent housing. Mental Status Exam MSE Comments: This is an obese white male in hospital scrubs with limited grooming and eye contact. No abnormal movements except for psychomotor retardation. Cooperative with exam in mild distress. Speech was decreased rate and normal volume. Mood described as less depressed, affect congruent. Thought process organized. Thou ght content: Patient denied current suicidal or homicidal ideations, there were no delusions reported or noted, he denied auditory or visual hallucinations.. Attention, concentration and memory appear intact but were not formally tested. He is alert and oriented x3. Insight, judgment and impulse control are limited. Vitals/I&O/Wt Last Vital Signs Temp 97.6 F 02/05/23 06:00 Pulse 113 H 02/05/23 06:00 Resp 18 02/05/23 06:00 BP 116/69 02/05/23 06:00 Pulse Ox 96 02/05/23 06:00 O2 Del Method Room Air 02/05/23 06:00 Data NPU 02/03/23 10:35 02/03/23 10:35 A&P Assessment and plan (1) Suicidal ideation: (2) Major depressive disorder, recurrent, severe with psychotic symptoms: (3) Cannabis use disorder, moderate, in early remission, dependence: (4) Nicotine dependence, unspecified, uncomplicated: (5) Cluster A personality disorder in adult: (6) Generalized anxiety disorder: Plan This is a 27-year-old white male well known to the neuropsychiatric unit with known history of depression and addiction who presents on transfer back from inpatient rehab with reports of feeling overwhelmed with suicidal ideation. 1.? Continue current medications, except increased Prozac to 40 mg p.o. every morning. 2.? Continue every 15 minute checks for safety. 3.? Encourage individual, group and milieu therapies. 4.? Encourage sober living treatment after discharge at the highest level of care to which he is willing to commit. 5.? Work with treatment team to explore what resources including case management he can be connected with at this time. He is appearing to have some dependent personality traits that might be showing themselves at this stressful moment of change for him. Involuntary Hold Information 96 Hour Hold: 96 Hour Involuntary Admission: No 96 Hour Hold Ending Date: 12/11/22 96 Hour Hold Ending Time: 05:28 Attestations NPU Medical Necessity Statement*: Inpatient hospitalization is medically necessary and the clinically appropriate intervention at this time. We will monitor and make medication changes as indicated.? Likely length of stay 1-4 days. Coding Level of Care Code Acute Code for [facility] Fwd Diagnoses Suicidal ideation R45.851 Major depressive disorder, recurrent, severe with psychotic symptoms F33.3 Cannabis use disorder, moderate, in early remission, dependence F12.21 Nicotine dependence, unspecified, uncomplicated F17.200 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
[2023-02-05 14:00] VITALS: BP 118/68; PULSE 68; RESP 18; TEMP 36.8; O2SAT 95
[2023-02-05] MEDS: nicotine 4 mg lozenge MUCOUS MEM ×2 (17:46→20:52)
[2023-02-05 19:55] VITALS: BP 126/76; PULSE 74; RESP 18; TEMP 37; O2SAT 96
[2023-02-05] MEDS: prazosin 1 mg Capsule 3 MG PO (20:24)
[2023-02-05] MEDS: quetiapine 100 mg Tablet PO (20:24)
[2023-02-06 06:00] VITALS: RESP 17
[2023-02-06] MEDS: OXcarbazepine 300 mg Tablet PO (10:17)
[2023-02-06] MEDS: fluoxetine 20 mg Capsule 40 MG PO (10:17)
--- NOTE | 2023-02-06 13:32 | W.PM.NPUDCS ---
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 Patient is a 27-year-old male who presents to ED today for evaluation of suicidal ideations.? Patient states he has felt suicidal for several days now.? He states he has a plan to run out in front of traffic.? Patient reportedly is at [facility] from alcohol abuse and he states many of the residents are causing him to feel suicidal.? He states it is a high stress/high emotion environment and he does not seem to be coping well.? He does report previous suicide attempts.? Patient states he was released from [facility] approximately a month and a half ago.? He has been taking all of his psychiatric medications as prescribed. Reports hallucinations but states he has schizophrenia so these are chronic. ? MD complaint: suicidal ideation and feels depressed Onset (ago): day(s) Duration: constant History of same: Yes Context: significant life stressor Associated psychiatric symptoms: depression and suicidal ideation Associated symptoms: Reports auditory hallucinations, visual hallucinations, depression and suicidal ideation; Deny homicidal ideation Treatments prior to arrival: none If self harm: admits thoughts of self harm He was admitted to the neuropsychiatric unit for definitive treatment of those issues.? He presents today reporting that he is just feeling depressed.? He was just discharged from here 12/29/2022 and an excerpt of that discharge is included below for context and the fact that after he left here he went directly to [facility] and is now coming back from [facility].? He reports that he is near completion of the program and they are looking for options for him.? He acknowledged that probably some of the sadness of feeling overwhelmed has to do with the fact that he is homeless and they have not found a viable option for him at this point though they are fully prepared to receive him back at discharge from here.? We discussed the fact that his Prozac is only a 20 mg which is a fairly low-dose and discussed the risks, benefits and alternatives of increasing that to 40 mg and he understood and agreed to proceed as is documented in this note.? We discussed this hopefully being a short stay was an increase in his antidepressant and collaboration with [facility] for him to return when he is able to contract for safety. Per his 12/29/2022 [facility] inpatient psychiatric discharge summary: Discharge Diagnosis (1) Suicidal ideation: ? ? ? Status: Resolved (2) Major depressive disorder, recurrent, severe with psychotic symptoms: ? ? ? Status: Acute (3) Cannabis use disorder, moderate, in early remission, dependence: ? ? ? Status: Acute (4) Nicotine dependence, unspecified, uncomplicated: ? ? ? 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 ? ? Status: Acute (6) Generalized anxiety disorder: ? ? ? Status: Acute Reason for Visit Reason for Visit:?? SI? Brief History: Braulio Terrazas is a 27 year old male who was recently discharged from the neuropsychiatric unit on 12/11/2022 with a history of psychotic disorder and otherwise specified who was brought into the emergency department after he had reported that for the past 4 to 5 days he had had an increase in the presence of auditory and visual hallucinations.? He stated that he had been feeling paranoid about things disappearing from his phone.? He had reported that he was having some suicidal thoughts at this time.? He reported that he had had problems with concentration and states that he had not been sleeping well.? He had reported having a history of psychotic symptoms for for several years and stated that he had previously used inhalants and had huffed gasoline at a young age.? He had also endorsed an extended history of substance use stating that he had been drinking at a young age.? He reports that he had been scheduled to receive his second dose of Invega Sustenna on 12/17/2022 but he had missed his appointment and had been without his medication to target his psychosis.? The patient reported no substantial changes since his last hospitalization Per Previous Discharge on 12/05/22 HPI: Braulio Terrazas is a 27 year old male who presented to the emergency department with the following report: Chief Complaint: Psychiatric Symptoms Stated Complaint: SI Time Seen by Provider: 12/05/22 05:13 Source: patient Mode of arrival: ambulatory Limitations: no limitations History of Present Illness:?? 27-year-old male has history of schizophrenia along with depression and bipolar disorder he states that over the last few days he been having increased hallucinations along with suicidal ideations he states he has not been taking his meds he supposed be on risperidone he has not been taking them.? He denies any worsening improving factors at this time. Associated symptoms: Reports depression He was admitted to the neuropsychiatric unit for definitive treatment of those issues.? He presents fairly focused on his somewhat hyper scientologist, conspiratorial delusions making it hard for him to stay on task and normal question and answering situations.? What we were able to glean from the conversation is that he has been hospitalized recently in another hospital in the past 2 to 4 weeks but that he currently has no medications and has not been taking medication.? He is reportedly homeless now and has not been able to really meet his needs because he is stuck in a shed possibly on his family's property or having no place to stay but certainly without stability that would allow him to get his mental health issues back on track.? In excerpt of his past hospitalization in 2020 is included below for context.? His drug screen was only positive for cannabis.? We discussed the risk benefits and alternatives of reviewing his medications and restarting some of the medications at appropriate initiation doses and he understood and agreed to proceed as it is documented in this note. Per his 09/17/2021 [facility] inpatient psychiatric discharge summary: Discharge Diagnosis (1) Acute psychosis: ? ? ? Status: Resolved (2) Suicidal ideation: ? ? ? Status: Resolved (3) Major depressive disorder, recurrent, severe with psychotic symptoms: ? ? ? Status: Acute (4) Cannabis use disorder, moderate, in early remission, dependence: ? ? ? Status: Acute (5) Moderate alcohol dependence: ? ? ? Status: Acute (6) Inhalant use disorder, moderate, in sustained remission, dependence: ? ? ? Status: Deleted (7) Nicotine dependence, unspecified, uncomplicated: ? ? ? 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 ? ? Status: Acute (9) Generalized anxiety disorder: ? ? ? Status: Acute Reason for Visit Reason for Visit:?? SI? Brief History: History of Present Illness Braulio Terrazas is a 26 year old male who presented to the emergency department with the following report: Chief Complaint: Psychiatric Symptoms Stated Complaint: SI Time Seen by Provider: 09/14/21 19:09 History of Present Illness:?? MD complaint: suicidal ideation and feels depressed Onset (ago): day(s) Duration: constant and getting worse History of same: Yes Relieving factors: none Exacerbating factors: none Associated psychiatric symptoms: depression and suicidal ideation Associated symptoms: Reports auditory hallucinations, delusions and suicidal ideation; Deny homicidal ideation If self harm: admits thoughts of self harm and has plan. He was admitted to the neuropsychiatric unit for definitive treatment of those issues.? Patient has recently been discharged from the unit and at that time there were concerns about his readiness for discharge.? He presents today discussing that there are things that we discussed again interplay.? The fragility of his living arrangements led to him moving out, getting kicked out, breaking up with his girlfriend and then reconnecting with her creating emotional turmoil and homelessness.? He presented reporting that he started having thoughts to hurt himself/kill himself but denies any new issues outside of the lingering and psychosocial challenges that were part of our concerns about his stability during the last admission.? Risk-benefit terms of maintaining his medication at the current doses given that he just changed them in the past week.? And he understood agreed receipt as documented in his note.? Given the no substantive changes and H&P from a little over a week ago an excerpt from that note is included below for context. Per his 09/05/2021 [facility] inpatient psychiatric evaluation: History of Present Illness Braulio Terrazas is a 26 year old male presented to the emergency department with the following report: Chief Complaint: Psychiatric Symptoms Stated Complaint: SI W/PLAN Time Seen by Provider: 09/04/21 16:21 History of Present Illness:?? HPI Narrative: Ms Terrazas is a 26-year-old gentleman with history of depression who presents to the emergency department with depression with suicidal ideation.? He reports symptoms have been worse over the past month or so without specific exacerbating factors.? He describes near constant intrusive thoughts of suicide and actively having to make decisions not to kill himself.? His plan is to shoot himself and he does have access to firearms.? He misses doses of medication every so often and has been out of his Risperdal for the past 3 days.? He denies acute medical complaints.? Overall the course of symptoms has been worsening.? He has been hospitalized previously for psychiatric reasons though nothing recently.? No other specific exacerbating or alleviating factors noted. He was admitted to the neuropsychiatric unit for definitive treatment of those issues.? He presents today reporting that things have not changed that much since last time he was in the hospital.? He mainly reported that he was [place] girlfriend and their family.? Which initially was a positive to be away from his family but recently has turned negative.? He reports the main stressor in the home is that he is currently not working and his girlfriend's mother says disparaging things about him behind his back to his girlfriend which has created some contention.? Additionally stressed out by his mother's cancer diagnosis, is bank account being empty, and feeling like no matter how hard he works on his mental health and other factors he always ends up at the same place which he reports has created significant despair.? He reports that he does not know if we cannot get some stability whether he will be able to avoid killing himself.? He discussed a situation where his significant other made him very angry that he is unclear why he did just turn into traffic.? We discussed the risk benefits and alternatives of increasing his Prozac to 40 mg p.o. every morning and he understood agreed to proceed as is documented in his note.? Reviewed his other medications which appear to be helping.? He denies any other substantive changes in his life and an excerpt of his outpatient psychiatric evaluation is included below for context.? We discussed seeing whether he had presented to the emergency department enough to get connected with the [facility] program but also discussed the possibility of getting him connected with [employer] [facility]. Per his 12/13/2020 [facility] outpatient psychiatric evaluation: [facility] History and Physical Time In: 09:20 Time Out: 10:15 Chief Complaint: I need to get back on medications History of Present Illness: This is a 25-year-old male who is been diagnosed with various diagnoses in the past including schizoaffective disorder, polysubstance use including marijuana, alcohol, nicotine, inhalants, and other substances, in addition to depression and anxiety, and cluster a personality traits.? Today he describes a history that certainly consistent with schizoid and schizotypal personality traits and that he has a coping style centered around fantasy world including imaginative but also books and films, but his more recent presentation in the last few years have presented with some paranoid ideations and auditory hallucinations at times but she certainly has good insight into, and may have been exacerbated by continuous drug use including huffing gas starting around age 89 years old, the last time was 2 years ago, heavy alcohol use and marijuana use all of which started very young, alcohol starting at age 12, nicotine starting by age 79 years old, marijuana starting by age [age] years old.? Today after discussing his past history and reviewing his to psychiatric admissions that both happened in 2019, I feel that the cluster B personality traits along with anxiety and depression are the most applicable in addition to the substance use.? I believe that any psychotic symptoms he had were exacerbated by substance there is no doubt he does have schizoid and schizotypal personality traits.? Question of trauma history is also come up and he tells me that he does not have much memory of his childhood, but this sounds as if it is more related to his chronic coughing of gasoline and marijuana use and other substances other than a dissociation process.? There does not seem to be a history of severe physical or sexual abuse or even domestic violence but he says he was bullied severely by his brothers and his father was an angry alcoholic and yelled a lot.? The patient remembers having depression and suicidal thoughts even in elementary school as a result of the bullying from his older brothers.? He tells me that he got so bad that he ended up being a bully himself for a few years.? There is no active suicidal thoughts, there is no actual history of suicide attempts, but he has had some cutting superficially for self-harm and in addition he says he often peeled back his fingernails and toenails as a form self-harm the last time this happened was 3 weeks ago.? During the session today he does not appear internally preoccupied but he is a little oddly related consistent with a cluster a personality.? He is denying active hallucinations at this time but he does when to get back on the Risperdal saying that it helped him with stabilizing his mood but he is unsure if it helped with hallucinations.? He does say that the hallucinations were less sinister and had less energy while on medications. History Past Psychiatric History: 2 psychiatric admissions in 2019 were his only admissions and they were each for about a week with suicidal ideations in the context of substance use.? Denies actual suicide attempts, has had self-harm in the form of cutting and peeling back to his nails. Family History: Father had depression and alcoholism, a brother could possibly be bipolar, Past Medical History: Denies current medical issues. Substance Use History: Inhalants: Started age 89 years old huffing gasoline, he still coughs on occasion and last used 2 years ago at age 23 which is a little late for puffers as they tend to stop in their teenage years. Alcohol: Started age [age] years old, for a few years he was drinking a 12 pack a day, now he drinks 6 or 7 beers once a week and a few beers on other nights. Marijuana: Started age [age] years old has been a consistent user periods in his life Nicotine: Currently up 3 to 5 mg a day, started smoking cigarettes when he picked him up from his mother's ashtray at age 79 years old. Other: He says he has used other pills in the past including some opiates, muscle relaxers, amphetamines but nothing consistent. Social History: He denies ever being or ever having kids.? He did graduate high school in [place], he is currently trying to go to college. Hospital Course Hospital Course He slowly acclimated to the individual, group and milieu therapies provided.? He presented from [facility] with likely some adjustment issues related to being done with the rehab part of the program and now looking at reentry and resources to change his homeless situation. We kept his medications the same except we increased his Prozac to 40 mg p.o. daily. He was able to work with the treatment team to assist him with maintaining the connection with [facility] and the plan to return..? He had significant improvement and was able to contract for safety, outside the hospital prior to discharge.? During the hospitalization, patient had routine laboratory studies which were within normal limits except for few outliers.? Additionally there was a general medical evaluation which was also within normal limits and revealed no new acute processes. Discharge Summary: At the time of discharge, he denied psychosis or lethality.? Mood and anxiety were well managed.? Patient endorsed a plan to avoid all drugs of abuse and follow-up with the aftercare recommendations of the treatment team.? Patient was evaluated and deemed to be absent credible lethality, and had achieved the maximum benefit from an inpatient hospitalization, so was discharged.? He was discharged directly to [facility] inpatient rehab. Involuntary Hold Information 96 Hour Hold: 96 Hour Involuntary Admission: No 96 Hour Hold Ending Date: 12/11/22 96 Hour Hold Ending Time: 05:28 Mental Status Exam MSE Comments: This is an obese white male in hospital scrubs with limited grooming and eye contact. No abnormal movements except for psychomotor retardation. Cooperative with exam in mild distress. Speech was decreased rate and normal volume. Mood described as better, affect congruent. Thought process organized. Thought content: Patient denied current suicidal or homicidal ideations, there were no delusions reported or noted, he denied auditory or visual hallucinations. Attention, concentration and memory appear intact but were not formally tested. He is alert and oriented x3. Insight, judgment and impulse control are limited, but improving. Discharge Data Studies Completed and Pending: Laboratory Results WBC 6.2 10^3/uL (4.0- 10.0) 02/03/23 10:35 RBC 5.02 10^6/uL (4.1 -5.3) 02/03/23 10:35 Hgb 14.2 g/dL (11.7-1 6.6) 02/03/23 10:35 Hct 42.5 % (42.0-52.0 ) 02/03/23 10:35 MCV 84.7 fl (80-94) 02/03/23 10:35 MCH 28.3 pg (28.0-34. 0) 02/03/23 10:35 MCHC 33.4 g/dL (30.0-3 6.0) 02/03/23 10:35 RDW 12.7 % (12.1-15.1 ) 02/03/23 10:35 Plt Count 163 10^3/cmm (130 -400) 02/03/23 10:35 MPV 10.5 fL (7.4-10.4 ) H 02/03/23 10:35 Neut % (Auto) 57.3 % 02/03/23 10:35 Lymph % (Auto) 32.3 % 02/03/23 10:35 Callahan % (Auto) 7.8 % 02/03/23 10:35 Eos % (Auto) 1.8 % 02/03/23 10:35 Baso % (Auto) 0.3 % 02/03/23 10:35 Neut # (Auto) 3.53 10^3/uL (1.8 -7.7) 02/03/23 10:35 Lymph # (Auto) 2.0 10^3/uL (0.8- 4.8) 02/03/23 10:35 Callahan # (Auto) 0.5 10^3/uL (0.2- 0.9) 02/03/23 10:35 Eos # (Auto) 0.1 10^3/uL (0.0- 0.8) 02/03/23 10:35 Baso # (Auto) 0.0 10^3/uL (0.0- 0.1) 02/03/23 10:35 Nucleated RBC % (a uto) 0 % 02/03/23 10:35 Nucleated RBCs # 0.0 /100WBC 02/03/23 10:35 Sodium 135 mmol/L (136-1 45) L 02/03/23 10:35 Potassium 4.3 mmol/L (3.5-5 .1) 02/03/23 10:35 Chloride 101 mmol/L (98-10 7) 02/03/23 10:35 Carbon Dioxide 25 mmol/L (22-29) 02/03/23 10:35 Anion Gap 13.3 (5-19) 02/03/23 10:35 BUN 8 mg/dL (6-20) 02/03/23 10:35 Creatinine 0.6 mg/dL (0.7-1. 2) L 02/03/23 10:35 GFR Calculation 164.2 mL/min (90- 130) H 02/03/23 10:35 Glucose 89 mg/dL (65-115) 02/03/23 10:35 Calculated Osmolal ity 278 mOsm/kg (285- 295) L 02/03/23 10:35 Calcium 9.4 mg/dL (8.5-10 .5) 02/03/23 10:35 Total Bilirubin 0.2 mg/dL (0.15-1 .2) 02/03/23 10:35 AST 24 U/L (0-40) 02/03/23 10:35 ALT 42 U/L (0-41) H 02/03/23 10:35 Alkaline Phosphata se 74 U/L (40-130) 02/03/23 10:35 Total Protein 6.9 g/dL (6.6-8.7 ) 02/03/23 10:35 Albumin 4.3 g/dL (3.5-5.2 ) 02/03/23 10:35 Globulin 2.6 g/dL (1.3-4.6 ) 02/03/23 10:35 Salicylates < 0.3 mg/dL (3-10 ) L 02/03/23 10:35 Urine Opiates Scre en Negative ng/mL (N egative) 02/03/23 12:40 Acetaminophen < 5.0 ug/mL (10-3 0) L 02/03/23 10:35 Ur Barbiturates Sc reen Negative ng/mL (N egative) 02/03/23 12:40 Ur Phencyclidine S crn Negative ng/mL (N egative) 02/03/23 12:40 Ur Amphetamines Sc reen Negative ng/mL (N egative) 02/03/23 12:40 U Benzodiazepines Scrn Negative ng/mL (N egative) 02/03/23 12:40 Urine Cocaine Scre en Negative ng/mL (N egative) 02/03/23 12:40 U Marijuana (THC) Screen Positive ng/mL (N egative) H 02/03/23 12:40 Ethyl Alcohol < 10 mg/dL (0-10) 02/03/23 10:35 Vitals: Last Vital Signs Temp 98.6 F 02/05/23 19:55 Pulse 74 02/05/23 19:55 Resp 17 02/06/23 06:00 BP 126/76 02/05/23 19:55 Pulse Ox 96 02/05/23 19:55 O2 Del Method Room Air 02/05/23 19:55 Discharge Plan Discharge Patient Disposition: Home Condition: Stable Prescriptions: New fluoxetine 20 mg Capsule 40 mg PO DAILY 30 Days Qty: 60 1RF Continued Trileptal 300 mg tablet 300 mg PO BID quetiapine [Seroquel] 100 mg tablet 100 mg PO BEDTIME@21 hydroxyzine pamoate 25 mg capsule 50 mg PO QID PRN (Reason: Anxiety) Invega Sustenna 156 mg/mL syringe 156 mg IM Q28D Pepto-Bismol 262 mg/15 mL Suspension 524 mg PO Q1H MDD 8 PRN (Reason: Nicotine Cravings) Rx Instructions: do not exceed 8 doses in a 24 hour period Nicorette 4 mg Lozenge 4 mg BUCCAL Q4H PRN (Reason: Nicotine Cravings) prazosin [Minipress] 1 mg capsule 3 mg PO BEDTIME 30 Days Qty: 90 1RF Discontinued fluoxetine [Prozac] 20 mg capsule 20 mg PO DAILY@06 fluoxetine 20 mg Capsule 20 mg PO DAILY Discharge Orders: Discharge Order (Routine); Ordered 02/06/23 Ordered By: Timur Huntley Referrals: [facility] [Outside] [facility] [Outside] - 02/06/23 3:00 pm Discharge Diet: Regular Discharge Activity: Resume usual activity Patient Instructions: Opioid Safety, Pain Management Discharge Attestations [facility] Time Spent in Discharge Care*: less than 30 min Specific Discharge Activities: Specific discharge activities: educating patient, discussing with leather case finisher/social workers/dc planners, documenting/other paperwork and evaluating patient/reviewing data Coding Level of Care Code Acute [facility] DC note Diagnoses Suicidal ideation R45.851 Major depressive disorder, recurrent, severe with psychotic symptoms F33.3 Cannabis use disorder, moderate, in early remission, dependence F12.21 Nicotine dependence, unspecified, uncomplicated F17.200 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
[2023-02-06 13:55] VITALS: RESP 17
[2023-02-06 13:56] VITALS: BP 126/76; PULSE 74; RESP 17; TEMP 37; O2SAT 96
== END 2023-02-06 15:10 | disposition home or self-care (01) | DRG 885 ==
LOC: ER 12:39 → NP 02-04 06:52
PROVIDERS: Admitting Provider Psychiatry & Neurology Psychiatry; Emergency Provider Physician Assistant; Visit Provider Psychiatry & Neurology Psychiatry
DX: F33.3 Major depressive disorder, recurrent, severe with psychotic symptoms (principal); R45.851 Suicidal ideations; F10.10 Alcohol abuse, uncomplicated; Z59.00 Homelessness unspecified; F12.21 Cannabis dependence, in remission; F41.1 Generalized anxiety disorder; F17.290 Nicotine dependence, other tobacco product, uncomplicated; F60.9 Personality disorder, unspecified
CPT/HCPCS: 36415; 80053; 80306; 80307; 85025; 97165; 99285

== ENCOUNTER 2023-02-11 22:35 | Inpatient (IN) | payer MEDICAID, SELFPAY ==
[2021-09-25 16:09] VITALS: BMI 39.9
[2023-02-11 22:38] VITALS: BP 158/90; PULSE 88; RESP 16; TEMP 36.8; O2SAT 98; BMI 33.2
--- NOTE | 2023-02-11 22:42 | W.ED.PSYCHS ---
HPI - Psych General: Chief Complaint: Psychiatric Symptoms Stated Complaint: SI Time Seen by Provider: 02/11/23 22:36 Source: EMS Mode of arrival: EMS Limitations: no limitations History of Present Illness: 28-year-old male who came in with police and EMS he was at [place] he had left he states he felt like he had been held in a [place] with a bunch of pedophiles he been having hallucinations is being held against his will. When grey percher arrived he had said he want to kill himself by walking in front of traffic he is also having homicidal ideations he told the grey percher he want to take his gun and shoot him self along with the police worker. Patient does admit to being suicidal to me. Associated symptoms: Reports delusions, depression, homicidal ideation and suicidal ideation Review of Systems Const: Denies: fever(s) or chills Eyes: Denies: eye discomfort ENMT: Denies: throat pain or dental pain Card: Denies: chest pain Resp: Denies: dyspnea GI: Denies: abdominal pain, nausea, vomiting or diarrhea : Denies: dysuria Musc: Denies: neck pain or back pain Skin/Breast: Denies: rash Neuro: Denies: headache(s) Psych: Reports: depression, suicidal ideation and homicidal ideation [facility] ED PFSH: Medical History Major depressive disorder, recurrent severe without psychotic features Psychiatric care Social History Smoking and tobacco status: current every day smoker e-cigarettes E-Cigarette Details: vaporizer device and with nicotine E-cig/vape details: 5 mg/Day Quit status (tobacco): considering quitting Second hand smoke exposure: No Current gender identity: Male Physical Exam Const: COMMON NORMALS: patient oriented x3 GENERAL APPEARANCE: anxious HENMT: COMMON NORMALS: normocephalic and atraumatic HEAD & SCALP: normocephalic and atraumatic Eye: COMMON NORMALS: conjunctivae normal CONJUNCTIVA: Yes conjunctivae normal Neck/C-Spine: COMMON NORMALS: full ROM and supple Chest: COMMONS NORMALS: normal inspection of the chest Resp: COMMON NORMALS: normal respiratory effort, No retractions, No use of accessory muscles and clear to auscultation bilaterally AUSCULTATION: clear to auscultation bilaterally Cardio: COMMON NORMALS: regular rate, regular rhythm and No murmurs present (Cardio) RATE: regular rate RHYTHM: regular rhythm GI: INSPECTION: Yes normal to inspection Extremity: COMMON NORMALS: normal to inspection and full ROM Neuro: COMMON NORMALS: patient oriented x3, moves all extremities and no focal motor deficits Psych: COMMON NORMALS: mental status grossly normal and cooperative THOUGHT CONTENT: Yes Suicidality present, Yes Homicidality present, Yes delusions and Yes Hallucination(s) present Skin: COMMON NORMALS: no rashes or lesions noted and no wounds GENERAL SKIN EXAM: no rashes or lesions noted Course Vital Signs: Vital signs: Vital Signs Temperature 98.2 F 02/11/23 22:38 Pulse Rate 88 02/11/23 22:38 Respiratory Rate 16 02/11/23 22:38 Blood Pressure 158/90 02/11/23 22:38 Pulse Oximetry 98 02/11/23 22:38 Oxygen Delivery Me thod Room Air 02/11/23 22:38 MDM - Psych Medical Decision Making Patient presents here with suicidal and homicidal ideations along with some hallucinations patient is medically cleared I spoke to Dr. Huntley and will admit at this time. Differential Diagnosis Likely suicidal ideation and depression Medical Records I reviewed the patient's medical records. Lab Data I reviewed the patient's lab results. 02/11/23 22:45 02/11/23 22:45 Laboratory Results WBC 7.0 10^3/uL (4.0-10.0) 02/11/23 22:45 RBC 4.62 10^6/uL (4.1-5.3) 02/11/23 22:45 Hgb 13.1 g/dL (11.7-16.6) 02/11/23 22:45 Hct 39.0 % (42.0-52.0) L 02/11/23 22:45 MCV 84.4 fl (80-94) 02/11/23 22:45 MCH 28.4 pg (28.0-34.0) 02/11/23 22:45 MCHC 33.6 g/dL (30.0-36.0) 02/11/23 22:45 RDW 12.7 % (12.1-15.1) 02/11/23 22:45 Plt Count 159 10^3/cmm (130-400) 02/11/23 22:45 MPV 10.1 fL (7.4-10.4) 02/11/23 22:45 Neut % (Auto) 62.6 % 02/11/23 22:45 Lymph % (Auto) 29.1 % 02/11/23 22:45 Elbert % (Auto) 5.6 % 02/11/23 22:45 Eos % (Auto) 1.7 % 02/11/23 22:45 Baso % (Auto) 0.4 % 02/11/23 22:45 Neut # (Auto) 4.37 10^3/uL (1.8-7.7) 02/11/23 22:45 Lymph # (Auto) 2.0 10^3/uL (0.8-4.8) 02/11/23 22:45 Elbert # (Auto) 0.4 10^3/uL (0.2-0.9) 02/11/23 22:45 Eos # (Auto) 0.1 10^3/uL (0.0-0.8) 02/11/23 22:45 Baso # (Auto) 0.0 10^3/uL (0.0-0.1) 02/11/23 22:45 Nucleated RBC % (auto) 0 % 02/11/23: Nucleated RBCs # 0.0 /100WBC 02/11/23 22:45 Sodium 135 mmol/L (136-145) L 02/11/23 22:45 Potassium 3.5 mmol/L (3.5-5.1) 02/11/23 22:45 Chloride 99 mmol/L (98-107) 02/11/23 22:45 Carbon Dioxide 22 mmol/L (22-29) 02/11/23 22:45 Anion Gap 17.5 (5-19) 02/11/23 22:45 BUN 11 mg/dL (6-20) 02/11/23 22:45 Creatinine 0.7 mg/dL (0.7-1.2) 02/11/23 22:45 GFR Calculation 136.3 mL/min (90-130) H 02/11/23 22:45 Glucose 104 mg/dL (65-115) 02/11/23 22:45 Calculated Osmolality 280 mOsm/kg (285-295) L 02/11/23 22:45 Calcium 9.5 mg/dL (8.5-10.5) 02/11/23 22:45 Total Bilirubin 0.2 mg/dL (0.15-1.2) 02/11/23 22:45 AST 126 U/L (0-40) H 02/11/23 22:45 ALT 65 U/L (0-41) H 02/11/23 22:45 Alkaline Phosphatase 76 U/L (40-130) 02/11/23 22:45 Total Protein 7.1 g/dL (6.6-8.7) 02/11/23 22:45 Albumin 4.2 g/dL (3.5-5.2) 02/11/23 22:45 Globulin 2.9 g/dL (1.3-4.6) 02/11/23 22:45 Salicylates < 0.3 mg/dL (3-10) L 02/11/23 22:45 Acetaminophen < 5.0 ug/mL (10-30) L 02/11/23 22:45 Ethyl Alcohol < 10 mg/dL (0-10) 02/11/23 22:45 Discharge Plan Discharge Patient Disposition: Admitted As Inpatient Admit Provider: Timur Huntley Clinical Impression: Suicidal ideation, Moderate alcohol dependence, Acute psychosis Condition: Stable Coding Level of Care Code ED Secretary To The Vice President for Eric Glover
[2023-02-11 22:58] LABS: Basophils % 0.4 %; Eosinophils # 0.1 10^3/uL (0.0-0.8); Eosinophils % 1.7 %; Hemoglobin 13.1 g/dL (11.7-16.6); Lymphocytes % 29.1 %; Mean Corpuscular HGB Conc 33.6 g/dL (30.0-36.0); Mean Corpuscular Hemoglobin 28.4 pg (28.0-34.0); Mean Corpuscular Volume 84.4 fl (80-94); Mean Platelet Volume 10.1 fL (7.4-10.4); Monocytes # 0.4 10^3/uL (0.2-0.9); Monocytes % 5.6 %; Neutrophils # 4.37 10^3/uL (1.8-7.7); Neutrophils % 62.6 %; Nucleated Red Blood Cells % 0 %; Platelet Count 159 10^3/cmm (130-400); Red Blood Count 4.62 10^6/uL (4.1-5.3); Red Cell Distribution Width 12.7 % (12.1-15.1)
[2023-02-11] MEDS: water for injection-sterile 10 ML (23:00)
[2023-02-11] MEDS: LORazepam 2 mg/mL INJ 1 mL IM (23:00)
[2023-02-11] MEDS: ziprasidone 20 mg/mL SDV IM (23:00)
[2023-02-11 23:20] LABS: Alanine Aminotransferase 65 U/L (0-41); Albumin Level 4.2 g/dL (3.5-5.2); Alkaline Phosphatase 76 U/L (40-130); Anion Gap 17.5 (5-19); Aspartate Amino Transferase 126 U/L (0-40); Blood Urea Nitrogen 11 mg/dL (6-20); Calcium 9.5 mg/dL (8.5-10.5); Carbon Dioxide 22 mmol/L (22-29); Chloride 99 mmol/L (98-107); Globulin 2.9 g/dL (1.3-4.6); Glomerular Filtration Rate 136.3 mL/min (90-130); Glucose 104 mg/dL (65-115); Osmolality Calculated 280 mOsm/kg (285-295); Potassium 3.5 mmol/L (3.5-5.1); Sodium 135 mmol/L (136-145); Total Bilirubin 0.2 mg/dL (0.15-1.2); Total Protein 7.1 g/dL (6.6-8.7)
[2023-02-11 23:24] LABS: Acetaminophen < 5.0 ug/mL (10-30); Alcohol Level < 10 mg/dL (0-10); Salicylate < 0.3 mg/dL (3-10)
[2023-02-11 23:26] VITALS: RESP 18
--- NOTE | 2023-02-11 23:32 | PC.NURSE ---
Patient informed that he is on 96hr hold and right read/ discussed by house sup prior to departure from ER.
[2023-02-11 23:36] VITALS: BP 145/88; PULSE 78; RESP 18; TEMP 37; O2SAT 96
[2023-02-11 23:58] LABS: Amphetamines Screen Urine Negative (Negative); Barbiturates Screen Urine Negative (Negative); Benzodiazepines Screen Urine Negative (Negative); Cocaine Screen Urine Negative (Negative); Opiate Screen Urine Negative (Negative); PCP Screen Urine Negative (Negative); THC Screen Urine Positive (Negative)
--- NOTE | 2023-02-12 00:06 | PC.NURSE ---
Pt arrived to [facility] w/ER nurse and security staff at his side. Pt was provided food and drink, and clothes. Pt is pleasant and cooperative at this time. Taken to room and laid down to rest. All questions answered, polices and procedures explained.
--- NOTE | 2023-02-12 00:08 | PC.NURSE ---
Upon assessment pt denied all substance abuse.
[2023-02-12 06:00] VITALS: BP 177/75; PULSE 101; RESP 18; TEMP 36.6; O2SAT 96
--- NOTE | 2023-02-12 08:21 | P.NPUHP_ITS ---
Providers/Chief Complaint Admitting Physician: Timur Huntley MD Chief Complaint: SI HPI NPU History of Present Illness Braulio Terrazas is a 28 year old male recently discharged on 02/06/2023 from the neuropsychiatric unit directly to the the [facility] inpatient treatment facility. 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 He had reported that over the past 4 to 5 days while staying at the [facility] he had felt that everyone was red in the face in that place . He reports that he had felt that he was being held in a facility with a bunch of pedophiles . He had endorsed that he had been having recurrent auditory hallucinations that have been getting worse. He had reported that he has been sober without any alcohol or marijuana for several months. He states that he had left the inpatient facility at [facility] and began walking outside and stated that he had wanted to walk in front of traffic with the intent to kill himself. Patient reports that the police had arrived and had taken him to the emergency department for further evaluation. He was admitted to the neuropsychiatric unit for further evaluation and treatment. Per records, the events solutions consultant had indicated that the patient had made a threat to shoot them although he reported that he had no such thoughts of wanting to harm another person. Previous documents indicate that the patient has received his Invega Sustenna intramuscular on February at the the [facility] inpatient unit. He reports that he has been feeling more depressed and endorses suicidal thoughts along with repeated hallucinations that are distracting for him. He reports no substantial changes in his medication regimen or his history compared to his previous admission less than 10 days ago. That that is what I thought so he needs he needs a higher dose of that so I will not have to add a little bit of something to this much appreciated yet by Excerpt from 02/06/23 discharge summary at Neuropsychiatric unit. Brief History: History of Present Illness Braulio Terrazas is a 27 year old male to the emergency department with the following report: Chief Complaint: Psychiatric Symptoms Stated Complaint: SI Time Seen by Provider: 02/03/23 09:44 Source: patient Mode of arrival: ambulatory Limitations: no limitations History of Present Illness:?? Patient is a 27-year-old male who presents to ED today for evaluation of suicidal ideations.? Patient states he has felt suicidal for several days now.? He states he has a plan to run out in front of traffic.? Patient reportedly is at [facility] rehabilitation from alcohol abuse and he states many of the residents are causing him to feel suicidal.? He states it is a high stress/high emotion environment and he does not seem to be coping well.? He does report previous suicide attempts.? Patient states he was released from NPU approximately a month and a half ago.? He has been taking all of his psychiatric medications as prescribed. Reports hallucinations but states he has schizophrenia so these are chronic. ? MD complaint: suicidal ideation and feels depressed Onset (ago): day(s) Duration: constant History of same: Yes Context: significant life stressor Associated psychiatric symptoms: depression and suicidal ideation Associated symptoms: Reports auditory hallucinations, visual hallucinations, depression and suicidal ideation; Deny homicidal ideation Treatments prior to arrival: none If self harm: admits thoughts of self harm He was admitted to the neuropsychiatric unit for definitive treatment of those issues.? He presents today reporting that he is just feeling depressed.? He was just discharged from here 12/29/2022 and an excerpt of that discharge is included below for context and the fact that after he left here he went directly to the [facility] and is now coming back from the [facility].? He reports that he is near completion of the program and they are looking for options for him.? He acknowledged that probably some of the sadness of feeling overwhelmed has to do with the fact that he is homeless and they have not found a viable option for him at this point though they are fully prepared to receive him back at [facility] from here.? We discussed the fact that his Prozac is only a 20 mg which is a fairly low-dose and discussed the risks, benefits and alternatives of increasing that to 40 mg and he understood and agreed to proceed as is documented in this note.? We discussed this hopefully being a short stay was an increase in his antidepressant and collaboration with the [facility] for him to return when he is able to contract for safety. Per his 12/29/2022 [facility] inpatient psychiatric discharge summary: Discharge Diagnosis (1) Suicidal ideation: ? ? ? Status: Resolved (2) Major depressive disorder, recurrent, severe with psychotic symptoms: ? ? ? Status: Acute (3) Cannabis use disorder, moderate, in early remission, dependence: ? ? ? Status: Acute (4) Nicotine dependence, unspecified, uncomplicated: ? ? ? 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 ? ? Status: Acute (6) Generalized anxiety disorder: ? ? ? Status: Acute Reason for Visit Reason for Visit:?? SI? Brief History: Braulio Terrazas is a 27 year old male who was recently discharged from the neuropsychiatric unit on 12/11/2022 with a history of psychotic disorder and otherwise specified who was brought into the emergency department after he had reported that for the past 4 to 5 days he had had an increase in the presence of auditory and visual hallucinations.? He stated that he had been feeling paranoid about things disappearing from his phone.? He had reported that he was having some suicidal thoughts at this time.? He reported that he had had problems with concentration and states that he had not been sleeping well.? He had reported having a history of psychotic symptoms for for several years and stated that he had previously used inhalants and had huffed gasoline at a young age.? He had also endorsed an extended history of substance use stating that he had been drinking at a young age.? He reports that he had been scheduled to receive his second dose of Invega Sustenna on 12/17/2022 but he had missed his appointment and had been without his medication to target his psychosis.? The patient reported no substantial changes since his last hospitalization Per Previous Discharge on 12/05/22 HPI: Braulio Terrazas is a 27 year old male who presented to the emergency department with the following report: Chief Complaint: Psychiatric Symptoms Stated Complaint: SI Time Seen by Provider: 12/05/22 05:13 Source: patient Mode of arrival: ambulatory Limitations: no limitations History of Present Illness:?? 27-year-old male has history of schizophrenia along with depression and bipolar disorder he states that over the last few days he been having increased hallucinations along with suicidal ideations he states he has not been taking his meds he supposed be on risperidone he has not been taking them.? He denies any worsening improving factors at this time. Associated symptoms: Reports depression He was admitted to the neuropsychiatric unit for definitive treatment of those issues.? He presents fairly focused on his somewhat hyper latter day, conspiratorial delusions making it hard for him to stay on task and normal question and answering situations.? What we were able to glean from the conversation is that he has been hospitalized recently in another hospital in the past 2 to 4 weeks but that he currently has no medications and has not been taking medication.? He is reportedly homeless now and has not been able to really meet his needs because he is stuck in a shed possibly on his family's pro perty or having no place to stay but certainly without stability that would allow him to get his mental health issues back on track.? In excerpt of his past hospitalization in 2020 is included below for context.? His drug screen was only positive for cannabis.? We discussed the risk benefits and alternatives of reviewing his medications and restarting some of the medications at appropriate initiation doses and he understood and agreed to proceed as it is documented in this note. Per his 09/17/2021 [facility] inpatient psychiatric discharge summary: Discharge Diagnosis (1) Acute psychosis: ? ? ? Status: Resolved (2) Suicidal ideation: ? ? ? Status: Resolved (3) Major depressive disorder, recurrent, severe with psychotic symptoms: ? ? ? Status: Acute (4) Cannabis use disorder, moderate, in early remission, dependence: ? ? ? Status: Acute (5) Moderate alcohol dependence: ? ? ? Status: Acute (6) Inhalant use disorder, moderate, in sustained remission, dependence: ? ? ? Status: Deleted (7) Nicotine dependence, unspecified, uncomplicated: ? ? ? 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 ? ? Status: Acute (9) Generalized anxiety disorder: ? ? ? Status: Acute Reason for Visit Reason for Visit:?? SI? Brief History: History of Present Illness Braulio Terrazas is a 26 year old male who presented to the emergency department with the following report: Chief Complaint: Psychiatric Symptoms Stated Complaint: SI Time Seen by Provider: 09/14/21 19:09 History of Present Illness:?? MD complaint: suicidal ideation and feels depressed Onset (ago): day(s) Duration: constant and getting worse History of same: Yes Relieving factors: none Exacerbating factors: none Associated psychiatric symptoms: depression and suicidal ideation Associated symptoms: Reports auditory hallucinations, delusions and suicidal ideation; Deny homicidal ideation If self harm: admits thoughts of self harm and has plan. He was admitted to the neuropsychiatric unit for definitive treatment of those issues.? Patient has recently been discharged from the unit and at that time there were concerns about his readiness for discharge.? He presents today discussing that there are things that we discussed again interplay.? The fragility of his living arrangements led to him moving out, getting kicked out, breaking up with his girlfriend and then reconnecting with her creating emotional turmoil and homelessness.? He presented reporting that he started having thoughts to hurt himself/kill himself but denies any new issues outside of the lingering and psychosocial challenges that were part of our concerns about his stability during the last admission.? Risk-benefit terms of maintaining his medication at the current doses given that he just changed them in the past week.? And he understood agreed receipt as documented in his note.? Given the no substantive changes and H&P from a little over a week ago an excerpt from that note is included below for context. Per his 09/05/2021 [facility] inpatient psychiatric evaluation: History of Present Illness Braulio Terrazas is a 26 year old male presented to the emergency department with the following report: Chief Complaint: Psychiatric Symptoms Stated Complaint: SI W/PLAN Time Seen by Provider: 09/04/21 16:21 History of Present Illness:?? HPI Narrative: Ms Terrazas is a 26-year-old gentleman with history of depression who presents to the emergency department with depression with suicidal ideation.? He reports symptoms have been worse over the past month or so without specific exacerbating factors.? He describes near constant intrusive thoughts of suicide and actively having to make decisions not to kill himself.? His plan is to shoot himself and he does have access to firearms.? He misses doses of medication every so often and has been out of his Risperdal for the past 3 days.? He denies acute medical complaints.? Overall the course of symptoms has been worsening.? He has been hospitalized previously for psychiatric reasons though nothing recently.? No other specific exacerbating or alleviating factors noted. He was admitted to the neuropsychiatric unit for definitive treatment of those issues.? He presents today reporting that things have not changed that much since last time he was in the hospital.? He mainly reported that [place] was [place] girlfriend and their family.? Which initially was a positive to be away from his family but recently has turned negative.? He reports the main stressor in the home is that he is currently not working and his girlfriend's mother says disparaging things about him behind his back to his girlfriend which has created some contention.? Additionally stressed out by his mother's cancer diagnosis, is bank account being empty, and feeling like no matter how hard he works on his mental health and other factors he always ends up at the same place which he reports has created significant despair.? He reports that he does not know if we cannot get some stability whether he will be able to avoid killing himself.? He discussed a situation where his significant other made him very angry that he is unclear why he did just turn into traffic.? We discussed the risk benefits and alternatives of increasing his Prozac to 40 mg p.o. every morning and he understood agreed to proceed as is documented in his note.? Reviewed his other medications which appear to be helping.? He denies any other substantive changes in his life and an excerpt of his outpatient psychiatric evaluation is included below for context.? We discussed seeing whether he had presented to the emergency department enough to get connected with the [facility] program but also discussed the possibility of getting him connected with [facility]. Per his 12/13/2020 [facility] outpatient psychiatric evaluation: [facility] History and Physical Time In: 09:20 Time Out: 10:15 Chief Complaint: I need to get back on medications History of Present Illness: This is a 25-year-old male who is been diagnosed with various diagnoses in the past including schizoaffective disorder, polysubstance use including marijuana, alcohol, nicotine, inhalants, and other substances, in addition to depression and anxiety, and cluster a personality traits.? Today he describes a history that certainly consistent with schizoid and schizotypal personality traits and that he has a coping style centered around fantasy world including imaginative but also books and films, but his more recent presentation in the last few years have presented with some paranoid ideations and auditory hallucinations at times but she certainly has good insig ht into, and may have been exacerbated by continuous drug use including huffing gas starting around age 89 years old, the last time was 2 years ago, heavy alcohol use and marijuana use all of which started very young, alcohol starting at age 12, nicotine starting by age 79 years old, marijuana starting by age [age] years old.? Today after discussing his past history and reviewing his to psychiatric admissions that both happened in 2019, I feel that the cluster B personality traits along with anxiety and depression are the most applicable in addition to the substance use.? I believe that any psychotic symptoms he had were exacerbated by substance there is no doubt he does have schizoid and schizotypal personality traits.? Question of trauma history is also come up and he tells me that he does not have much memory of his childhood, but this sounds as if it is more related to his chronic coughing of gasoline and marijuana use and other substances other than a dissociation process.? There does not seem to be a history of severe physical or sexual abuse or even domestic violence but he says he was bullied severely by his brothers and his father was an angry alcoholic and yelled a lot.? The patient remembers having depression and suicidal thoughts even in elementary school as a result of the bullying from his older brothers.? He tells me that he got so bad that he ended up being a bully h imself for a few years.? There is no active suicidal thoughts, there is no actual history of suicide attempts, but he has had some cutting superficially for self-harm and in addition he says he often peeled back his fingernails and toenails as a form self-harm the last time this happened was 3 weeks ago.? During the session today he does not appear internally preoccupied but he is a little oddly related consistent with a cluster a personality.? He is denying active hallucinations at this time but he does when to get back on the Risperdal saying that it helped him with stabilizing his mood but he is unsure if it helped with hallucinations.? He does say that the hallucinations were less sinister and had less energy while on medications. History Past Psychiatric History: 2 psychiatric admissions in 2019 were his only admissions and they were each for about a week with suicidal ideations in the context of substance use.? Denies actual suicide attempts, has had self-harm in the form of cutting and peeling back to his nails. Family History: Father had depression and alcoholism, a brother could possibly be bipolar, Past Medical History: Denies current medical issues. Substance Use History: Inhalants: Started age 89 years old huffing gasoline, he still coughs on occasion and last used 2 years ago at age 23 which is a little late for puffers as they tend to stop in their teenage years. Alcohol: Started age [age] years old, for a few years he was drinking a 12 pack a day, now he drinks 6 or 7 beers once a week and a few beers on other nights. Marijuana: Started age [age] years old has been a consistent user periods in his life Nicotine: Currently up 3 to 5 mg a day, started smoking cigarettes when he picked him up from his mother's ashtray at age 79 years old. Other: He says he has used other pills in the past including some opiates, muscle relaxers, amphetamines but nothing consistent. Social History: He denies ever being or ever having kids.? He did graduate high school in [place], he is currently trying to go to college. Meds NPU Home Medications Medication Instructions Recorded Confirmed Last Taken Type prazosin 1 mg capsule (Minipress) 3 mg PO BEDTIME 30 days #90 caps 12/29/22 02/12/23 02/02/23 20:53 Rx hydroxyzine pamoate 25 mg capsule 50 mg PO QID PRN Anxiety 02/03/23 02/12/23 02/03/23 07:37 History (Vistaril) oxcarbazepine 300 mg tablet 300 mg PO BID 02/03/23 02/12/23 02/02/23 History (Trileptal) paliperidone palmitate 156 mg/mL 156 mg IM Q28D 02/03/23 02/12/23 01/14/23 History intramuscular syringe (Invega Sustenna) quetiapine 100 mg tablet (Seroquel) 100 mg PO BEDTIME@21 02/03/23 02/12/23 01/07/23 20:53 History bismuth subsalicylate 262 mg/15 mL 524 mg PO Q1H PRN Nicotine Cravings 02/04/23 02/12/23 01/05/23 07:46 History oral suspension (Pepto-Bismol) nicotine (polacrilex) 4 mg buccal 4 mg buccal Q4H PRN Nicotine 02/04/23 02/12/23 02/03/23 07:35 History lozenge (Nicorette) Cravings fluoxetine 20 mg capsule (Prozac) 40 mg PO DAILY 02/12/23 02/12/23 Unknown History Allergies Allergy/AdvReac Type Severity Reaction Status Date / Time No Known Allergies Allergy Verified 02/11/23 22:50 PFSH NPU PFSH: Medical History Major depressive disorder, recurrent severe without psychotic features Psychiatric care Social History Smoking and tobacco status: current every day smoker e-cigarettes E-Cigarette Details: vaporizer device and with nicotine E-cig/vape details: 5 mg/Day Quit status (tobacco): considering quitting Second hand smoke exposure: No Current gender identity: Male Mental Status Exam MSE Comments: This is an obese white male in hospital scrubs with poor grooming and fleeting eye contact. No abnormal movements except for prominent psychomotor retardation. He was a poor historian as he appeared in and out of consciousness while lying in bed. He was difficult to arouse. Speech was decreased in rate, decreased and productivity and normal in volume. There was evidence of speech latency increase. Mood described as depressed, affect was restricted in range and mood-congruent. Thought process was linear but superficial. Thought content: Patient endorsed suicidal ideation with a plan to jump out in front of traffic. He denied any homicidal ideation. His recent and remote memory were grossly intact although not formally tested. He is alert and oriented x3. Insight, judgment and impulse control are limited. Vitals/I&O/Wt Last Vital Signs Temp 97.9 F 02/12/23 06:00 Pulse 101 H 02/12/23 06:00 Resp 18 02/12/23 06:00 BP 177/75 02/12/23 06:00 Pulse Ox 96 02/12/23 06:00 O2 Del Method Room Air 02/12/23 06:00 02/11/23 02/12/23 02/12/23 22:59 06:59 14:59 Intake Total Balance Weight last 48 hrs Weight 127.006 kg Data NPU 02/11/23 22:45 02/11/23 22:45 A&P Assessment and plan (1) Acute psychosis: (2) Suicidal ideation: (3) Major depressive disorder, recurrent, severe with psychotic symptoms: (4) Cannabis use disorder, moderate, in early remission, dependence: (5) Nicotine dependence, unspecified, uncomplicated: (6) 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 1.? Continue current medications. Current concern is that the Invega sustain at 156 mg has been inadequate to manage his psychosis and additional oral Invega will be initiated as the next intramuscular dosing is not due until greater than 3 weeks from today. 2.? Continue every 15 minute checks for safety. 3.? Encourage individual, group and milieu therapies. 4.? Encourage sober living treatment after discharge at the highest level of care to which he is willing to commit. 5.? Work with treatment team to explore what resources including case management he can be connected with at this time. He is appearing to have some dependent personality traits that might be showing themselves at this stressful moment of change for him. Involuntary Hold Information 96 Hour Hold: 96 Hour Involuntary Admission: Yes 96 Hour Hold Ending Date: 02/17/23 96 Hour Hold Ending Time: 22:49 Attestations NPU Medical Necessity Statement*: Inpatient hospitalization is medically necessary and the clinically appropriate intervention at this time. Patient will be here for at least 2 midnights. We will monitor and make medication changes as indicated.? Likely length of stay 5-10 days. 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
[2023-02-12] MEDS: fluoxetine 20 mg Capsule 40 MG PO (08:56)
[2023-02-12] MEDS: OXcarbazepine 300 mg Tablet PO ×2 (08:56→17:31)
[2023-02-12] MEDS: paliperidone ER 3 mg Tablet PO (13:34)
[2023-02-12 14:00] VITALS: RESP 16
[2023-02-12] MEDS: quetiapine 100 mg Tablet PO (20:50)
[2023-02-12] MEDS: prazosin 1 mg Capsule 3 MG PO (20:50)
[2023-02-12 22:00] VITALS: RESP 16
[2023-02-13 06:00] VITALS: BP 117/67; PULSE 97; RESP 18; TEMP 36.4; O2SAT 97
[2023-02-13] MEDS: paliperidone ER 3 mg Tablet PO (10:01)
[2023-02-13] MEDS: fluoxetine 20 mg Capsule 40 MG PO (10:01)
[2023-02-13] MEDS: OXcarbazepine 300 mg Tablet PO ×2 (10:01→17:08)
[2023-02-13 14:00] VITALS: BP 105/69; PULSE 72; RESP 16; TEMP 36.6; O2SAT 96
--- NOTE | 2023-02-13 14:58 | W.PM.NPUPNS ---
Subjective NPU Subjective: Patient 28-year-old white male with schizophreniform disorder and a past history of polysubstance abuse admitted with suicidal and homicidal ideation while inpatient and treatment at the [facility]. Patient had reported having homicidal ideation towards his father. He had also reported continuing to have suicidal thoughts. He had isolated himself on the unit. 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 The patient continued to isolate himself on the milieu rarely coming out of his room while not able to manage his activities of daily living. He reported continued feelings of hopelessness and reported that he felt as if he had no future. Mental Status Exam MSE Comments: This is an obese white male in hospital scrubs with poor grooming and fleeting eye contact. No abnormal movements except for prominent psychomotor retardation. He had continued to appear somewhat tired and remained a poor historian. He was difficult to arouse once again.. Speech was decreased in rate, decreased and productivity and normal in volume. There was evidence of speech latency increase. Mood described as depressed, affect was restricted in range and mood-congruent. Thought process was linear but superficial. Thought content: Patient endorsed suicidal ideation with a plan to jump out in front of traffic. He had endorsed homicidal ideation towards his father. There was evidence of a bizarre complicated delusion as he appeared paranoid in nature as well. His recent and remote memory were grossly intact although not formally tested. He is alert and oriented x3. Insight, judgment and impulse control are impaired. Vitals/I&O/Wt Last Vital Signs Temp 98 F 02/13/23 14:00 Pulse 72 02/13/23 14:00 Resp 16 02/13/23 14:00 BP 105/69 02/13/23 14:00 Pulse Ox 96 02/13/23 14:00 O2 Del Method Room Air 02/13/23 14:00 Weight last 48 hrs Weight 127.006 kg Data NPU 02/11/23 22:45 02/11/23 22:45 A&P Assessment and plan (1) Acute psychosis: (2) Suicidal ideation: (3) Major depressive disorder, recurrent, severe with psychotic symptoms: (4) Cannabis use disorder, moderate, in early remission, dependence: (5) Nicotine dependence, unspecified, uncomplicated: (6) 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 1.? Continue current medications. Invega 3mg daily with Invega IM given 5 days ago. Continue Prozac as prescribed. 3.? Encourage individual, group and milieu therapies. 4.? Encourage sober living treatment after discharge at the highest level of care to which he is willing to commit. 5.? Work with treatment team to explore what resources including case management he can be connected with at this time. He is appearing to have some dependent personality traits that might be showing themselves at this stressful moment of change for him. Involuntary Hold Information 96 Hour Hold: 96 Hour Involuntary Admission: Yes 96 Hour Hold Ending Date: 02/17/23 96 Hour Hold Ending Time: 22:49 Attestations NPU Medical Necessity Statement*: Inpatient hospitalization is medically necessary and the clinically appropriate intervention at this time. We will monitor and make medication changes as indicated.? Likely length of stay 5-10 days. Coding Level of Care Code Acute Code for [facility] F[facility] Diagnoses Acute psychosis F23 Suicidal ideation R45.851 Major depressive disorder, recurrent, severe with psychotic symptoms F33.3 Cannabis use disorder, moderate, in early remission, dependence F12.21 Nicotine dependence, unspecified, uncomplicated F17.200 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
[2023-02-13] MEDS: nicotine 2 mg Gum BUCCAL ×2 (15:06→21:00)
[2023-02-13] MEDS: quetiapine 100 mg Tablet PO (20:34)
[2023-02-13] MEDS: prazosin 1 mg Capsule 3 MG PO (20:34)
[2023-02-13 22:00] VITALS: BP 126/86; PULSE 90; RESP 16; TEMP 36.8; O2SAT 93
--- NOTE | 2023-02-13 23:06 | NPU.GN ---
[facility] Topic:Wood luisito models General Mood of Group- pleasant and focused. patient was able to remain engaged in missy activity until completion of his model jeep. he surprised himself for being so focused on the activity
[2023-02-14 06:00] VITALS: RESP 18
[2023-02-14] MEDS: OXcarbazepine 300 mg Tablet PO ×2 (09:09→17:34)
[2023-02-14] MEDS: paliperidone ER 3 mg Tablet PO (09:09)
[2023-02-14] MEDS: fluoxetine 20 mg Capsule 40 MG PO (09:09)
--- NOTE | 2023-02-14 13:50 | P.NPUPN_ITS ---
Subjective NPU Subjective: Patient 28-year-old white male with schizophreniform disorder and a past history of polysubstance abuse admitted with suicidal and homicidal ideation while inpatient and treatment at the [facility]. Patient appeared isolative on the milieu. He was minimally cooperative on interview. He had to continue to report having homicidal thoughts towards his father and reported having continued suicidal thoughts. He had reported desire to have help to live indefinitely stating that he was unable to care for himself. The patient had reported difficulties with feeling excessively tired and stated that he had struggled with motivation. He had not woken up to eat breakfast in the morning. He continued to isolate himself on the milieu with minimal amounts of time spent outside of his room despite some prompting. The patient had reported that he had showered yesterday. Mental Status Exam MSE Comments: This is an obese white male in hospital scrubs with poor grooming and fleeting eye contact. His room was filled with open MD wrappers have chip bags and left over cups of fluids. He continued to show evidence of significant psychomotor retardation. He had continued to appear somewhat tired and remained a poor historian as he appeared quite annoyed during the interview.. He was difficult to arouse once again. Speech was decreased in rate, decreased and productivity and normal in volume. There was evidence of speech latency increase. Mood remained depressed. His affect was restricted in range and mood-congruent. Thought process was linear but superficial. Thought content: Patient endorsed suicidal ideation with a plan to jump out in front of traffic. He had endorsed homicidal ideation towards his father. There was continued evidence of delusional thinking. His recent and remote memory were grossly intact although not formally tested. He is alert and oriented x3. Insight, judgment and impulse control are impaired. Vitals/I&O/Wt Last Vital Signs Temp 98.2 F 02/13/23 22:00 Pulse 90 02/13/23 22:00 Resp 18 02/14/23 06:00 BP 126/86 02/13/23 22:00 Pulse Ox 93 02/13/23 22:00 O2 Del Method Room Air 02/13/23 22:00 Data NPU 02/11/23 22:45 02/11/23 22:45 A&P Assessment and plan (1) Acute psychosis: (2) Suicidal ideation: (3) Major depressive disorder, recurrent, severe with psychotic symptoms: (4) Cannabis use disorder, moderate, in early remission, dependence: (5) Nicotine dependence, unspecified, uncomplicated: (6) 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 1.? Continue current medications. Continue additional Invega 3mg daily with Invega IM 156mg given 1 week ago. Increase Prozac to 60 mg daily to target depression 3.? Encourage individual, group and milieu therapies. 4.? Encourage sober living treatment after discharge at the highest level of care to which he is willing to commit. 5.? Work with treatment team to explore what resources including case management he can be connected with at this time. He is appearing to have some dependent personality traits that might be showing themselves at this stressful moment of change for him. Involuntary Hold Information 96 Hour Hold: 96 Hour Involuntary Admission: Yes 96 Hour Hold Ending Date: 02/17/23 96 Hour Hold Ending Time: 22:49 Attestations NPU Medical Necessity Statement*: Inpatient hospitalization is medically necessary and the clinically appropriate intervention at this time. We will monitor and make medication changes as indicated.? Likely length of stay 5-10 days. Coding Level of Care Code Acute Code for [facility] Fwd Diagnoses Acute psychosis F23 Suicidal ideation R45.851 Major depressive disorder, recurrent, severe with psychotic symptoms F33.3 Cannabis use disorder, moderate, in early remission, dependence F12.21 Nicotine dependence, unspecified, uncomplicated F17.200 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
[2023-02-14 14:00] VITALS: BP 103/72; PULSE 69; RESP 18; TEMP 36.8; O2SAT 96
[2023-02-14] MEDS: nicotine 4 mg lozenge MUCOUS MEM ×2 (18:06→20:35)
[2023-02-14 20:04] VITALS: BP 118/78; PULSE 96; RESP 20; TEMP 36.4; O2SAT 96
[2023-02-14] MEDS: quetiapine 100 mg Tablet PO (20:35)
[2023-02-14] MEDS: prazosin 1 mg Capsule 3 MG PO (20:35)
--- NOTE | 2023-02-14 22:40 | NPU.GN ---
[facility] Topic:painitng wood craft General Mood of Group- good, patient very focused on precisely painting his jeep.
[2023-02-15 06:00] VITALS: RESP 18
[2023-02-15] MEDS: paliperidone ER 3 mg Tablet PO (08:16)
[2023-02-15] MEDS: fluoxetine 20 mg Capsule 60 MG PO (08:16)
[2023-02-15] MEDS: OXcarbazepine 300 mg Tablet PO ×2 (08:16→20:17)
[2023-02-15] MEDS: nicotine 4 mg lozenge MUCOUS MEM ×3 (13:50→20:17)
[2023-02-15 14:00] VITALS: BP 135/80; PULSE 90; RESP 16; TEMP 36.8; O2SAT 99
--- NOTE | 2023-02-15 15:26 | W.PM.NPUPNS ---
Subjective NPU Subjective: Patient 28-year-old white male with schizophreniform disorder and a past history of polysubstance abuse admitted with suicidal and homicidal ideation while inpatient and treatment at the [facility].He had left his room earlier today and appeared to be walking around for the first time in several days. 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 He continued to be isolative on the milieu. He had to continue to report having homicidal thoughts towards his father and reported having continued suicidal thoughts. He had continued to report struggling with managing his own care for several years. The patient had reported difficulties with feeling excessively tired and stated that he had struggled with motivation. He had continued to require prompting for oral intake. He continued to isolate himself on the milieu with minimal amounts of time spent outside of his room despite some prompting. Had shown evidence of completing some basic activities of daily living today including showering. Mental Status Exam MSE Comments: This is an obese white male in hospital scrubs with improved grooming and fleeting eye contact. He continued to show evidence of significant psychomotor retardation. He had c appeared less sedated today. He was difficult to arouse once again. Speech was decreased in rate, decreased and productivity and normal in volume. There was evidence of speech latency increase. Mood was described as depressed. His affect was restricted in range and mood-congruent. Thought process was linear but superficial. Thought content: Patient endorsed suicidal ideation with no plan currently. He did not endorse any homicidal ideation today. There was continued evidence of delusional thinking. His recent and remote memory were grossly intact although not formally tested. He is alert and oriented x3. Insight, judgment and impulse control are impaired. Vitals/I&O/Wt Last Vital Signs Temp 98.3 F 02/15/23 14:00 Pulse 90 02/15/23 14:00 Resp 16 02/15/23 14:00 BP 135/80 02/15/23 14:00 Pulse Ox 99 02/15/23 14:00 O2 Del Method Room Air 02/15/23 14:00 Weight last 48 hrs Weight 135.261 kg Data NPU 02/11/23 22:45 02/11/23 22:45 A&P Assessment and plan (1) Acute psychosis: (2) Suicidal ideation: (3) Major depressive disorder, recurrent, severe with psychotic symptoms: (4) Cannabis use disorder, moderate, in early remission, dependence: (5) Nicotine dependence, unspecified, uncomplicated: (6) 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 1.? Continue current medications. Continue additional Invega 3mg daily with Invega IM 156mg given 1 week ago. Continue Prozac 60 mg daily to target depression 3.? Encourage individual, group and milieu therapies. 4.? Encourage sober living treatment after discharge at the highest level of care to which he is willing to commit. 5.? Work with treatment team to explore what resources including case management he can be connected with at this time. He is appearing to have some dependent personality traits that might be showing themselves at this stressful moment of change for him. Involuntary Hold Information 96 Hour Hold: 96 Hour Involuntary Admission: Yes 96 Hour Hold Ending Date: 02/17/23 96 Hour Hold Ending Time: 22:49 Attestations NPU Medical Necessity Statement*: Inpatient hospitalization is medically necessary and the clinically appropriate intervention at this time. We will monitor and make medication changes as indicated.? Likely length of stay 5-10 days. Coding Level of Care Code Acute Code for [facility] Fwd Diagnoses Acute psychosis F23 Suicidal ideation R45.851 Major depressive disorder, recurrent, severe with psychotic symptoms F33.3 Cannabis use disorder, moderate, in early remission, dependence F12.21 Nicotine dependence, unspecified, uncomplicated F17.200 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
[2023-02-15] MEDS: prazosin 1 mg Capsule 3 MG PO (20:17)
[2023-02-15] MEDS: quetiapine 100 mg Tablet PO (20:17)
[2023-02-15 20:35] VITALS: BP 122/83; PULSE 79; RESP 16; TEMP 36.7; O2SAT 96
[2023-02-16 06:00] VITALS: RESP 18
--- NOTE | 2023-02-16 06:32 | PC.NURSE ---
resp. pt sleeping
[2023-02-16] MEDS: paliperidone ER 3 mg Tablet PO (08:32)
[2023-02-16] MEDS: fluoxetine 20 mg Capsule 60 MG PO (08:32)
[2023-02-16] MEDS: OXcarbazepine 300 mg Tablet PO ×2 (08:32→20:29)
[2023-02-16] MEDS: nicotine 4 mg lozenge MUCOUS MEM ×3 (08:34→17:56)
--- NOTE | 2023-02-16 12:17 | W.PM.NPUPNS ---
Subjective NPU Subjective: Patient 28-year-old white male with schizophreniform disorder and a past history of polysubstance abuse admitted with suicidal and homicidal ideation while inpatient and treatment at the [facility].the patient had reported that his depression was more prominent when his paranoia was worse. He had reported compliance with his antipsychotic medications but stated that he continued to have concerns about trusting others. He had been less isolative on the milieu today. He had engaged in more appropriate self-care. He states that he was feeling somewhat better with the addition of oral Invega supplementation. He had reported that he did believe that he needed to be in a place where he could be treated for an extended period of time and the concept of guardianship was discussed. He had reported having struggles with being around large crowds and had stated that he often struggles with feeling as if other people were somehow engaging in a plot to ruin him. He denied any nightmares and denied any flashbacks regarding previous traumatic events. Mental Status Exam MSE Comments: This is an obese white male in hospital scrubs with improved grooming and fleeting eye contact. He showed evidence of mild psychomotor retardation. He showed a greater level of alertness today as he was sitting on his bed and was conversant with significantly less speech latency noted with improved rate, and improved productivity with normal volume. Mood was described as okay.. His affect was blunted. His thought process was linear but superficial. Thought content: Patient endorsed no suicidal ideation at this time. He did not endorse any homicidal ideation today. there was continued evidence of paranoia and delusional system. His recent and remote memory were grossly intact although not formally tested. He is alert and oriented x3. Insight was poor. Judgment is poor. Impulse control appeared to be improving. Vitals/I&O/Wt Last Vital Signs Temp 98.1 F 02/15/23 20:35 Pulse 79 02/15/23 20:35 Resp 18 02/16/23 06:00 BP 122/83 02/15/23 20:35 Pulse Ox 96 02/15/23 20:35 O2 Del Method Room Air 02/15/23 14:00 Weight last 48 hrs Weight 135.261 kg Data NPU 02/11/23 22:45 02/11/23 22:45 A&P Assessment and plan (1) Acute psychosis: (2) Suicidal ideation: (3) Major depressive disorder, recurrent, severe with psychotic symptoms: (4) Cannabis use disorder, moderate, in early remission, dependence: (5) Nicotine dependence, unspecified, uncomplicated: (6) 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 1.? Continue current medications. Continue additional Invega 3mg daily with Invega IM 156mg given 1 week ago. Continue Prozac 60 mg daily to target depression. He appears to be showing some improvement. We will begin with discharge planning. 3.? Encourage individual, group and milieu therapies. 4.? Encourage sober living treatment after discharge at the highest level of care to which he is willing to commit. 5.? Work with treatment team to explore what resources including case management he can be connected with at this time. He is appearing to have some dependent personality traits that might be showing themselves at this stressful moment of change for him. Involuntary Hold Information 96 Hour Hold: 96 Hour Involuntary Admission: Yes 96 Hour Hold Ending Date: 02/17/23 96 Hour Hold Ending Time: 22:49 Attestations NPU Medical Necessity Statement*: Inpatient hospitalization is medically necessary and the clinically appropriate intervention at this time. We will monitor and make medication changes as indicated.? Likely length of stay 2-3 days. Coding Level of Care Code Acute Code for [facility] Fwd Diagnoses Acute psychosis F23 Suicidal ideation R45.851 Major depressive disorder, recurrent, severe with psychotic symptoms F33.3 Cannabis use disorder, moderate, in early remission, dependence F12.21 Nicotine dependence, unspecified, uncomplicated F17.200 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
[2023-02-16 13:58] VITALS: BP 137/87; PULSE 86; RESP 18; TEMP 36.8; O2SAT 97
[2023-02-16 20:10] VITALS: BP 132/69; PULSE 85; RESP 18; TEMP 36.6; O2SAT 97
[2023-02-16] MEDS: prazosin 1 mg Capsule 3 MG PO (20:29)
[2023-02-16] MEDS: quetiapine 100 mg Tablet PO (20:29)
[2023-02-17 06:00] VITALS: RESP 18
--- NOTE | 2023-02-17 06:23 | PC.NURSE ---
resp. pt sleeping.
[2023-02-17] MEDS: fluoxetine 20 mg Capsule 60 MG PO (10:17)
[2023-02-17] MEDS: paliperidone ER 3 mg Tablet PO (10:17)
[2023-02-17] MEDS: OXcarbazepine 300 mg Tablet PO ×2 (10:17→19:24)
[2023-02-17 13:35] VITALS: BP 142/82; PULSE 83; RESP 18; TEMP 36.8; O2SAT 96
[2023-02-17] MEDS: nicotine 4 mg lozenge MUCOUS MEM ×3 (14:49→19:25)
--- NOTE | 2023-02-17 15:32 | P.NPUPN_ITS ---
Subjective NPU Subjective: Patient 28-year-old white male with schizophreniform disorder and a past history of polysubstance abuse admitted with suicidal and homicidal ideation while inpatient and treatment at the [facility]. The patient had reported that he was feeling less depressed today. He states that his paranoia and thoughts of hurting himself and others have diminished. [facility] and attended groups. He states that he was awaiting an interview with [facility] to consider this place as a potential place to live. He had stated that he was thinking more about the potential for requiring guardianship and states that he still debated this with himself as he did not want to lose his freedoms. He had reported improved sleep. He had reported feeling less paranoid and states the addition of Invega had made his thoughts a little better. Mental Status Exam MSE Comments: This is an oral obese white male in hospital scrubs with improved grooming and fleeting eye contact. There was continued evidence of mild psychomotor retardation. His speech was normal in regards to rate rhythm and prosody with no increased latency in speech. He was alert and oriented to person place and time. Mood was described as better. His affect was blunted. His thought process was linear but superficial. Thought content: Patient endorsed no suicidal ideation at this time. He did not endorse any homicidal ideation today. There was no clear evidence of delusional thinking today. His recent and remote memory were grossly intact although not formally tested. He is alert and oriented x3. Insight was improving. Judgment is poor. Impulse control appeared to be improving. Vitals/I&O/Wt Last Vital Signs Temp 98.3 F 02/17/23 13:35 Pulse 83 02/17/23 13:35 Resp 18 02/17/23 13:35 BP 142/82 02/17/23 13:35 Pulse Ox 96 02/17/23 13:35 O2 Del Method Room Air 02/17/23 13:35 Data NPU 02/11/23 22:45 02/11/23 22:45 A&P Assessment and plan (1) Acute psychosis: (2) Suicidal ideation: (3) Major depressive disorder, recurrent, severe with psychotic symptoms: (4) Cannabis use disorder, moderate, in early remission, dependence: (5) Nicotine dependence, unspecified, uncomplicated: (6) 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 1.? Continue current medications. Continue additional Invega 3mg daily with In pettit IM 156mg given 2 week ago. Continue Prozac 60 mg daily to target depression. Discharge planning with possible placement at [facility]. 3.? Encourage individual, group and milieu therapies. 4.? Encourage sober living treatment after discharge at the highest level of care to which he is willing to commit. 5.? Work with treatment team to explore what resources including case management he can be connected with at this time. He is appearing to have some dependent personality traits that might be showing themselves at this stressful moment of change for him. Involuntary Hold Information 96 Hour Hold: 96 Hour Involuntary Admission: Yes 96 Hour Hold Ending Date: 02/17/23 96 Hour Hold Ending Time: 22:49 Attestations NPU Medical Necessity Statement*: Inpatient hospitalization is medically necessary and the clinically appropriate intervention at this time. We will monitor and make medication changes as indicated.? Likely length of stay 2-3 days. Coding Level of Care Code Acute Code for [facility] Fwd Diagnoses Acute psychosis F23 Suicidal ideation R45.851 Major depressive disorder, recurrent, severe with psychotic symptoms F33.3 Cannabis use disorder, moderate, in early remission, dependence F12.21 Nicotine dependence, unspecified, uncomplicated F17.200 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
[2023-02-17] MEDS: prazosin 1 mg Capsule 3 MG PO (19:23)
[2023-02-17] MEDS: quetiapine 100 mg Tablet PO (19:24)
[2023-02-17 21:57] VITALS: BP 120/62; PULSE 74; RESP 15; TEMP 36.9; O2SAT 96
[2023-02-18 06:00] VITALS: RESP 17
[2023-02-18] MEDS: paliperidone ER 3 mg Tablet PO (08:30)
[2023-02-18] MEDS: fluoxetine 20 mg Capsule 60 MG PO (08:30)
[2023-02-18] MEDS: OXcarbazepine 300 mg Tablet PO (08:30)
[2023-02-18] MEDS: nicotine 4 mg lozenge MUCOUS MEM ×2 (08:34→13:19)
[2023-02-18 14:00] VITALS: BP 142/85; PULSE 72; RESP 18; TEMP 36.7; O2SAT 95
[2023-02-18 14:51] VITALS: BP 142/85; PULSE 72; RESP 18; TEMP 36.7; O2SAT 95
--- NOTE | 2023-02-18 14:54 | W.PM.NPUDCS ---
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 Patient has a history of psychotic disorder not otherwise specified and major depressive disorder along with polysubstance abuse.? He had reported that over the past 4 to 5 days while staying at [facility] he had felt that everyone was red in the face in that place .? He reports that he had felt that he was being held in a facility with a bunch of pedophiles .? He had endorsed that he had been having recurrent auditory hallucinations that have been getting worse.? He had reported that he has been sober without any alcohol or marijuana for several months.? He states that he had left the inpatient facility at [facility] and began walking outside and stated that he had wanted to walk in front of traffic with the intent to kill himself.? Patient reports that the police had arrived and had taken him to the emergency department for further evaluation.? He was admitted to the neuropsychiatric unit for further evaluation and treatment.? Per records, the investigator vice had indicated that the patient had made a threat to shoot them although he reported that he had no such thoughts of wanting to harm another person.? Previous documents indicate that the patient has received his Invega Sustenna intramuscular on February at the [facility] inpatient unit.? He reports that he has been feeling more depressed and endorses suicidal thoughts along with repeated hallucinations that are distracting for him.? He reports no substantial changes in his medication regimen or his history compared to his previous admission less than 10 days ago. That that is what I thought so he needs he needs a higher dose of that so I will not have to add a little bit of something to this much appreciated yet by Excerpt from 02/06/23 discharge summary at [facility]. Brief History: History of Present Illness Braulio Terrazas is a 27 year old male to the emergency department with the following report: Chief Complaint: Psychiatric Symptoms Stated Complaint: SI Time Seen by Provider: 02/03/23 09:44 Source: patient Mode of arrival: ambulatory Limitations: no limitations History of Present Illness:?? Patient is a 27-year-old male who presents to ED today for evaluation of suicidal ideations.? Patient states he has felt suicidal for several days now.? He states he has a plan to run out in front of traffic.? Patient reportedly is at [facility] rehabilitation from alcohol abuse and he states many of the residents are causing him to feel suicidal.? He states it is a high stress/high emotion environment and he does not seem to be coping well.? He does report previous suicide attempts.? Patient states he was released from NPU approximately a month and a half ago.? He has been taking all of his psychiatric medications as prescribed. Reports hallucinations but states he has schizophrenia so these are chronic. ? MD complaint: suicidal ideation and feels depressed Onset (ago): day(s) Duration: constant History of same: Yes Context: significant life stressor Associated psychiatric symptoms: depression and suicidal ideation Associated symptoms: Reports auditory hallucinations, visual hallucinations, depression and suicidal ideation; Deny homicidal ideation Treatments prior to arrival: none If self harm: admits thoughts of self harm He was admitted to the neuropsychiatric unit for definitive treatment of those issues.? He presents today reporting that he is just feeling depressed.? He was just discharged from here 12/29/2022 and an excerpt of that discharge is included below for context and the fact that after he left here he went directly to [facility] and is now coming back from [facility].? He reports that he is near completion of the program and they are looking for options for him.? He acknowledged that probably some of the sadness of feeling overwhelmed has to do with the fact that he is homeless and they have not found a viable option for him at this point though they are fully prepared to receive him back at discharge from here.? We discussed the fact that his Prozac is only a 20 mg which is a fairly low-dose and discussed the risks, benefits and alternatives of increasing that to 40 mg and he understood and agreed to proceed as is documented in this note.? We discussed this hopefully being a short stay was an increase in his antidepressant and collaboration with [facility] for him to return when he is able to contract for safety. Per his 12/29/2022 [facility] inpatient psychiatric discharge summary: Discharge Diagnosis (1) Suicidal ideation: ? ? ? Status: Resolved (2) Major depressive disorder, recurrent, severe with psychotic symptoms: ? ? ? Status: Acute (3) Cannabis use disorder, moderate, in early remission, dependence: ? ? ? Status: Acute (4) Nicotine dependence, unspecified, uncomplicated: ? ? ? 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 ? ? Status: Acute (6) Generalized anxiety disorder: ? ? ? Status: Acute Reason for Visit Reason for Visit:?? SI? Brief History: Braulio Terrazas is a 27 year old male who was recently discharged from the neuropsychiatric unit on 12/11/2022 with a history of psychotic disorder and otherwise specified who was brought into the emergency department after he had reported that for the past 4 to 5 days he had had an increase in the presence of auditory and visual hallucinations.? He stated that he had been feeling paranoid about things disappearing from his phone.? He had reported that he was having some suicidal thoughts at this time.? He reported that he had had problems with concentration and states that he had not been sleeping well.? He had reported having a history of psychotic symptoms for for several years and stated that he had previously used inhalants and had huffed gasoline at a young age.? He had also endorsed an extended history of substance use stating that he had been drinking at a young age.? He reports that he had been scheduled to receive his second dose of Invega Sustenna on 12/17/2022 but he had missed his appointment and had been without his medication to target his psychosis.? The patient reported no substantial changes since his last hospitalization Per Previous Discharge on 12/05/22 HPI: Braulio Terrazas is a 27 year old male who presented to the emergency department with the following report: Chief Complaint: Psychiatric Symptoms Stated Complaint: SI Time Seen by Provider: 12/05/22 05:13 Source: patient Mode of arrival: ambulatory Limitations: no limitations History of Present Illness:?? 27-year-old male has history of schizophrenia along with depression and bipolar disorder he states that over the last few days he been having increased hallucinations along with suicidal ideations he states he has not been taking his meds he supposed be on risperidone he has not been taking them.? He denies any worsening improving factors at this time. Associated symptoms: Reports depression He was admitted to the neuropsychiatric unit for definitive treatment of those issues.? He presents fairly focused on his somewhat hyper buddhist, conspiratorial delusions making it hard for him to stay on task and normal question and answering situations.? What we were able to glean from the conversation is that he has been hospitalized recently in another hospital in the past 2 to 4 weeks but that he currently has no medications and has not been taking medication.? He is reportedly homeless now and has not been able to really meet his needs because he is stuck in a shed possibly on his family's property or having no place to stay but certainly without stability that would allow him to get his mental health issues back on track.? In excerpt of his past hospitalization in 2020 is included below for context.? His drug screen was only positive for cannabis.? We discussed the risk benefits and alternatives of reviewing his medications and restarting some of the medications at appropriate initiation doses and he understood and agreed to proceed as it is documented in this note. Per his 09/17/2021 [facility] inpatient psychiatric discharge summary: Discharge Diagnosis (1) Acute psychosis: ? ? ? Status: Resolved (2) Suicidal ideation: ? ? ? Status: Resolved (3) Major depressive disorder, recurrent, severe with psychotic symptoms: ? ? ? Status: Acute (4) Cannabis use disorder, moderate, in early remission, dependence: ? ? ? Status: Acute (5) Moderate alcohol dependence: ? ? ? Status: Acute (6) Inhalant use disorder, moderate, in sustained remission, dependence: ? ? ? Status: Deleted (7) Nicotine dependence, unspecified, uncomplicated: ? ? ? 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 ? ? Status: Acute (9) Generalized anxiety disorder: ? ? ? Status: Acute Reason for Visit Reason for Visit:?? SI? Brief History: History of Present Illness Braulio Terrazas is a 26 year old male who presented to the emergency department with the following report: Chief Complaint: Psychiatric Symptoms Stated Complaint: SI Time Seen by Provider: 09/14/21 19:09 History of Present Illness:?? MD complaint: suicidal ideation and feels depressed Onset (ago): day(s) Duration: constant and getting worse History of same: Yes Relieving factors: none Exacerbating factors: none Associated psychiatric symptoms: depression and suicidal ideation Associated symptoms: Reports auditory hallucinations, delusions and suicidal ideation; Deny homicidal ideation If self harm: admits thoughts of self harm and has plan. He was admitted to the neuropsychiatric unit for definitive treatment of those issues.? Patient has recently been discharged from the unit and at that time there were concerns about his readiness for discharge.? He presents today discussing that there are things that we discussed again interplay.? The fragility of his living arrangements led to him moving out, getting kicked out, breaking up with his girlfriend and then reconnecting with her creating emotional turmoil and homelessness.? He presented reporting that he started having thoughts to hurt himself/kill himself but denies any new issues outside of the lingering and psychosocial challenges that were part of our concerns about his stability during the last admission.? Risk-benefit terms of maintaining his medication at the current doses given that he just changed them in the past week.? And he understood agreed receipt as documented in his note.? Given the no substantive changes and H&P from a little over a week ago an excerpt from that note is included below for context. Hospital Course Hospital Course The patient responded well to an increase in his overall antipsychotic. He had been receiving 157 mg intramuscularly of Invega sustain a on a regular basis over the last 2 months but it was deemed to be below what was necessary to prevent psychosis from reemerging. It was determined that the next maintenance dose should be 234 mg as a maintenance dose instead. And lieu of an additional amount of Invega sustain a 3 mg was added orally until that time. With improvement noted in regards to his psychosis. Furthermore Prozac was titrated up to 60 mg daily to target depression. During the hospitalization, patient had routine laboratory studies which were within normal limits except for few outliers. Additionally there was a general medical evaluation which was also within normal limits and revealed no new acute processes.At the time of discharge, lethality was denied and psychosis was resolving. Mood and anxiety were well managed. Patient endorsed a plan to avoid all drugs of abuse and follow-up with the aftercare recommendations of the treatment team. Patient was evaluated and deemed to be absent credible lethality, and had achieved the maximum benefit from an inpatient hospitalization, so was discharged. The patient was agreeable to attendance at [facility] as a longterm. Involuntary Hold Information 96 Hour Hold: 96 Hour Involuntary Admission: Yes 96 Hour Hold Ending Date: 02/17/23 96 Hour Hold Ending Time: 22:49 Mental Status Exam MSE Comments: This is an oral obese white male in hospital scrubs with improved grooming and removed eye contact. There was mild psychomotor retardation on discharge. His speech was normal in regards to rate rhythm and prosody. He was alert and oriented to person place and time. Mood was described as better. His affect was brighter. His thought process was linear and logical. Thought content: Patient endorsed no suicidal ideation at this time. He did not endorse any homicidal ideation today. There was no clear evidence of delusional thinking today. His recent and remote memory were grossly intact although not formally tested. He is alert and oriented x3. Insight was improving. Judgment was improved. Impulse control appeared to be improving. Discharge Data Studies Completed and Pending: Laboratory Results WBC 7.0 10^3/uL (4.0- 10.0) 02/11/23 22:45 RBC 4.62 10^6/uL (4.1 -5.3) 02/11/23 22:45 Hgb 13.1 g/dL (11.7-1 6.6) 02/11/23 22:45 Hct 39.0 % (42.0-52.0 ) L 02/11/23 22:45 MCV 84.4 fl (80-94) 02/11/23 22:45 MCH 28.4 pg (28.0-34. 0) 02/11/23 22:45 MCHC 33.6 g/dL (30.0-3 6.0) 02/11/23 22:45 RDW 12.7 % (12.1-15.1 ) 02/11/23 22:45 Plt Count 159 10^3/cmm (130 -400) 02/11/23 22:45 MPV 10.1 fL (7.4-10.4 ) 02/11/23 22:45 Neut % (Auto) 62.6 % 02/11/23 22:45 Lymph % (Auto) 29.1 % 02/11/23 22:45 Gove % (Auto) 5.6 % 02/11/23 22:45 Eos % (Auto) 1.7 % 02/11/23 22:45 Baso % (Auto) 0.4 % 02/11/23 22:45 Neut # (Auto) 4.37 10^3/uL (1.8 -7.7) 02/11/23 22:45 Lymph # (Auto) 2.0 10^3/uL (0.8- 4.8) 02/11/23 22:45 Gove # (Auto) 0.4 10^3/uL (0.2- 0.9) 02/11/23 22:45 Eos # (Auto) 0.1 10^3/uL (0.0- 0.8) 02/11/23 22:45 Baso # (Auto) 0.0 10^3/uL (0.0- 0.1) 02/11/23 22:45 Nucleated RBC % (a uto) 0 % 02/11/23 22:45 Nucleated RBCs # 0.0 /100WBC 02/11/23 22:45 Sodium 135 mmol/L (136-1 45) L 02/11/23 22:45 Potassium 3.5 mmol/L (3.5-5 .1) 02/11/23 22:45 Chloride 99 mmol/L (98-107 ) 02/11/23 22:45 Carbon Dioxide 22 mmol/L (22-29) 02/11/23 22:45 Anion Gap 17.5 (5-19) 02/11/23 22:45 BUN 11 mg/dL (6-20) 02/11/23 22:45 Creatinine 0.7 mg/dL (0.7-1. 2) 02/11/23 22:45 GFR Calculation 136.3 mL/min (90- 130) H 02/11/23 22:45 Glucose 104 mg/dL (65-115 ) 02/11/23 22:45 Calculated Osmolal ity 280 mOsm/kg (285- 295) L 02/11/23 22:45 Calcium 9.5 mg/dL (8.5-10 .5) 02/11/23 22:45 Total Bilirubin 0.2 mg/dL (0.15-1 .2) 02/11/23 22:45 AST 126 U/L (0-40) H 02/11/23 22:45 ALT 65 U/L (0-41) H 02/11/23 22:45 Alkaline Phosphata se 76 U/L (40-130) 02/11/23 22:45 Total Protein 7.1 g/dL (6.6-8.7 ) 02/11/23 22:45 Albumin 4.2 g/dL (3.5-5.2 ) 02/11/23 22:45 Globulin 2.9 g/dL (1.3-4.6 ) 02/11/23 22:45 Salicylates < 0.3 mg/dL (3-10 ) L 02/11/23 22:45 Urine Opiates Scre en Negative ng/mL (N egative) 02/11/23 23:19 Acetaminophen < 5.0 ug/mL (10-3 0) L 02/11/23 22:45 Ur Barbiturates Sc reen Negative ng/mL (N egative) 02/11/23 23:19 Ur Phencyclidine S crn Negative ng/mL (N egative) 02/11/23 23:19 Ur Amphetamines Sc reen Negative ng/mL (N egative) 02/11/23 23:19 U Benzodiazepines Scrn Negative ng/mL (N egative) 02/11/23 23:19 Urine Cocaine Scre en Negative ng/mL (N egative) 02/11/23 23:19 U Marijuana (THC) Screen Positive ng/mL (N egative) H 02/11/23 23:19 Ethyl Alcohol < 10 mg/dL (0-10) 02/11/23 22:45 Vitals: Last Vital Signs Temp 98.1 F 02/18/23 14:51 Pulse 72 02/18/23 14:51 Resp 18 02/18/23 14:51 BP 142/85 02/18/23 14:51 Pulse Ox 95 02/18/23 14:51 O2 Del Method Room Air 02/17/23 21:57 Discharge Plan Discharge Patient Disposition: Home Condition: Stable Prescriptions: New fluoxetine 20 mg Capsule 60 mg PO DAILY 30 Days Qty: 90 1RF paliperidone 3 mg Tablet Extended Release 24 Hr 3 mg PO DAILY 15 Days Qty: 15 0RF Invega Sustenna 234 mg/1.5 mL syringe 234 mg IM Q30D Qty: 1.5 1RF Rx Instructions: Due for IM maintenance on 03/04/23. Given by nurse at physicians office or [facility] Continued hydroxyzine pamoate [Vistaril] 25 mg capsule 50 mg PO QID PRN (Reason: Anxiety) bismuth subsalicylate [Pepto-Bismol] 262 mg/15 mL Suspension 524 mg PO Q1H MDD 8 PRN (Reason: Nicotine Cravings) Rx Instructions: do not exceed 8 doses in a 24 hour period nicotine (polacrilex) [Nicorette] 4 mg Lozenge 4 mg BUCCAL Q4H PRN (Reason: Nicotine Cravings) Minipress 1 mg capsule 3 mg PO BEDTIME 30 Days Qty: 90 1RF Trileptal 300 mg tablet 300 mg PO BID 30 Days Qty: 60 1RF Seroquel 100 mg tablet 100 mg PO BEDTIME@21 30 Days Qty: 30 1RF Discontinued Invega Sustenna 156 mg/mL syringe 156 mg IM Q28D fluoxetine [Prozac] 20 mg capsule 40 mg PO DAILY Discharge Orders: Discharge Order (Routine); Ordered 02/18/23 Ordered By: Juaquin Cooney Referrals: [facility] [Other] [facility] [Outside] - 02/19/23 11:30 am (Initial assessment for services) Discharge Diet: Usual diet Discharge Activity: Resume usual activity Patient Instructions: Depression, Psychotic Disorder (DC), Opioid Safety Activity Restrictions/Additional Instructions: Patient may discontinue invega 3mg oral upon receipt of monthly invega 234mg given to patient by his nurse scheduled on 03/04/23. 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
== END 2023-02-18 15:15 | disposition home or self-care (01) | DRG 885 ==
LOC: ER 22:55 → NP 23:19
PROVIDERS: Admitting Provider Psychiatry & Neurology Psychiatry; Emergency Provider Emergency Medicine; Visit Provider Psychiatry & Neurology Psychiatry
DX: F20.9 Schizophrenia, unspecified (principal); R45.851 Suicidal ideations; F10.20 Alcohol dependence, uncomplicated; F12.21 Cannabis dependence, in remission; R45.850 Homicidal ideations; F17.290 Nicotine dependence, other tobacco product, uncomplicated; F60.9 Personality disorder, unspecified; F41.1 Generalized anxiety disorder; Z59.00 Homelessness unspecified
CPT/HCPCS: 80053; 80306; 80307; 85025; 96372; 97150; 97165; 99238; 99285; J2060; J3486

== ENCOUNTER 2023-03-15 00:50 | Emergency (ER) | payer MEDICAID, SELFPAY ==
[2021-09-25 16:09] VITALS: BMI 39.9
[2023-03-15 00:52] VITALS: BP 152/85; PULSE 95; RESP 17; TEMP 37.2; O2SAT 96; BMI 35.5
--- NOTE | 2023-03-15 01:05 | ECG_ITS ---
[facility] Test Date: 2023-03-15 Pat Name: Braulio Terrazas Department: Room: Gender: Male [employer]p D[employer]ing Vat Tender: : 1995 Requested By: Man Gunderson Order Number: [id number] Terence MD: Shannan Mancini M.D. Measurements Intervals [place] Rate: 82 P: 20 PA: 140 QRS: 58 QRSD: 94 T: 28 QT: 375 QTc: 440 Interpretive Statements SINUS RHYTHM NONSPECIFIC T-WAVE ABNORMALITY Compared to ECG 04/05/2019 15:35:12 T-wave abnormality now present Sinus arrhythmia no longer present Electronically Signed On 03-15-2023 5:25:46 CDT by Shannan Mancini M.D. [id number]
[2023-03-15 01:08] LABS: Basophils % 0.2 %; Eosinophils # 0.1 10^3/uL (0.0-0.8); Eosinophils % 0.6 %; Hematocrit 42.8 % (42.0-52.0); Hemoglobin 14.1 g/dL (11.7-16.6); Lymphocytes # 1.9 10^3/uL (0.8-4.8); Lymphocytes % 19.1 %; Mean Corpuscular HGB Conc 32.9 g/dL (30.0-36.0); Mean Corpuscular Hemoglobin 28.1 pg (28.0-34.0); Mean Corpuscular Volume 85.4 fl (80-94); Mean Platelet Volume 11.2 fL (7.4-10.4); Monocytes # 0.6 10^3/uL (0.2-0.9); Monocytes % 6.4 %; Neutrophils # 7.17 10^3/uL (1.8-7.7); Neutrophils % 73.5 %; Nucleated Red Blood Cells % 0 %; Platelet Count 184 10^3/cmm (130-400); Red Blood Count 5.01 10^6/uL (4.1-5.3); Red Cell Distribution Width 12.4 % (12.1-15.1); White Blood Count 9.8 10^3/uL (4.0-10.0)
--- NOTE | 2023-03-15 01:14 | W.ED.PSYCHS ---
HPI - Psych General: Chief Complaint: Psychiatric Symptoms Stated Complaint: SI Time Seen by Provider: 03/15/23 00:53 Source: patient and EMS Mode of arrival: EMS Limitations: no limitations History of Present Illness: 28-year-old male who [facility] as he states he got very angry with a roommate he started having suicidal thoughts he left and states that his suicidal thoughts have worsened. He has no specific plan but states that he needs to get help before he does harm himself he is voluntarily want to get help. Denies any worsening proving factors. Associated symptoms: Reports depression, homicidal ideation and suicidal ideation Review of Systems Const: Denies: fever(s) or chills ENMT: Denies: throat pain or dental pain Card: Denies: chest pain Resp: Denies: dyspnea GI: Denies: abdominal pain, nausea, vomiting or diarrhea Musc: Denies: neck pain or back pain Skin/Breast: Denies: rash Neuro: Denies: headache(s) Psych: Reports: depression, suicidal ideation and homicidal ideation All/Imm: Denies: urticaria PFSH ED PFSH: Medical History Major depressive disorder, recurrent severe without psychotic features Psychiatric care Social History Smoking and tobacco status: current every day smoker e-cigarettes E-Cigarette Details: vaporizer device and with nicotine E-cig/vape details: 5 mg/Day Quit status (tobacco): considering quitting Second hand smoke exposure: No Current gender identity: Male Physical Exam Const: COMMON NORMALS: no acute distress, patient oriented x3 and healthy appearing HENMT: COMMON NORMALS: normocephalic and atraumatic HEAD & SCALP: normocephalic and atraumatic Eye: COMMON NORMALS: conjunctivae normal CONJUNCTIVA: Yes conjunctivae normal Neck/C-Spine: COMMON NORMALS: full ROM and supple Chest: COMMONS NORMALS: normal inspection of the chest and normal palpation of entire chest wall Resp: COMMON NORMALS: normal respiratory effort, No retractions, No use of accessory muscles and clear to auscultation bilaterally AUSCULTATION: clear to auscultation bilaterally Cardio: COMMON NORMALS: regular rate, regular rhythm and No murmurs present (Cardio) RATE: regular rate RHYTHM: regular rhythm GI: COMMON NORMALS: Normal to inspection, nondistended, normoactive bowel sounds present, Soft to palpation, non-tender and no masses PALPATION: Yes Soft to palpation Extremity: COMMON NORMALS: normal to inspection and full ROM Neuro: COMMON NORMALS: patient oriented x3, moves all extremities and no focal motor deficits Psych: COMMON NORMALS: mental status grossly normal, Normal thought process present and cooperative MOOD & AFFECT: Yes depressed mood THOUGHT PROCESS: Normal thought process present THOUGHT CONTENT: Yes Suicidality present Skin: COMMON NORMALS: no rashes or lesions noted and no wounds GENERAL SKIN EXAM: no rashes or lesions noted Course Vital Signs: Vital signs: Vital Signs Temperature 99 F 03/15/23 00:52 Pulse Rate 95 03/15/23 00:52 Respiratory Rate 17 03/15/23 00:52 Blood Pressure 152/85 03/15/23 00:52 Pulse Oximetry 96 03/15/23 00:52 [facility] - Psych Medical Decision Making Patient presents for suicidality he is medically cleared excepted to [place]. Wants transfer due to psych bed availability. Medical Records I reviewed the patient's medical records. Lab Data I reviewed the patient's lab results. 03/15/23 00:31 03/15/23 00:31 Laboratory Results WBC 9.8 10^3/uL (4.0-10.0) 03/15/23 00:31 RBC 5.01 10^6/uL (4.1-5.3) 03/15/23 00:31 Hgb 14.1 g/dL (11.7-16.6) 03/15/23 00:31 Hct 42.8 % (42.0-52.0) 03/15/23 00:31 MCV 85.4 fl (80-94) 03/15/23 00:31 MCH 28.1 pg (28.0-34.0) 03/15/23 00:31 MCHC 32.9 g/dL (30.0-36.0) 03/15/23 00:31 RDW 12.4 % (12.1-15.1) 03/15/23 00:31 Plt Count 184 10^3/cmm (130-400) 03/15/23 00:31 MPV 11.2 fL (7.4-10.4) H 03/15/23 00:31 Neut % (Auto) 73.5 % 03/15/23 00:31 Lymph % (Auto) 19.1 % 03/15/23 00:31 [place] % (Auto) 6.4 % 03/15/23 00:31 Eos % (Auto) 0.6 % 03/15/23 00:31 Baso % (Auto) 0.2 % 03/15/23 00:31 Neut # (Auto) 7.17 10^3/uL (1.8-7.7) 03/15/23 00:31 Lymph # (Auto) 1.9 10^3/uL (0.8-4.8) 03/15/23 00:31 [place] # (Auto) 0.6 10^3/uL (0.2-0.9) 03/15/23 00:31 Eos # (Auto) 0.1 10^3/uL (0.0-0.8) 03/15/23 00: Baso # (Auto) 0.0 10^3/uL (0.0-0.1) 03/15/23 00:31 Nucleated RBC % (auto) 0 % 03/15/23 00: Nucleated RBCs # 0.0 /100WBC 03/15/23 00:31 Sodium 136 mmol/L (136-145) 03/15/23 00:31 Potassium 3.5 mmol/L (3.5-5.1) 03/15/23 00:31 Chloride 101 mmol/L (98-107) 03/15/23 00:31 Carbon Dioxide 22 mmol/L (22-29) 03/15/23 00:31 Anion Gap 16.5 (5-19) 03/15/23 00:31 BUN 11 mg/dL (6-20) 03/15/23 00:31 Creatinine 0.9 mg/dL (0.7-1.2) 03/15/23 00:31 GFR Calculation 102.0 mL/min (90-130) 03/15/23 00:31 Glucose 90 mg/dL (65-115) 03/15/23 00:31 Calculated Osmolality 281 mOsm/kg (285-295) L 03/15/23 00:31 Calcium 9.3 mg/dL (8.5-10.5) 03/15/23 00:31 Total Bilirubin 0.2 mg/dL (0.15-1.2) 03/15/23 00:31 AST 27 U/L (0-40) 03/15/23 00:31 ALT 47 U/L (0-41) H 03/15/23 00:31 Alkaline Phosphatase 81 U/L (40-130) 03/15/23 00:31 Total Protein 7.2 g/dL (6.6-8.7) 03/15/23 00:31 Albumin 4.3 g/dL (3.5-5.2) 03/15/23 00:31 Globulin 2.9 g/dL (1.3-4.6) 03/15/23 00:31 Salicylates < 0.3 mg/dL (3-10) L 03/15/23 00:31 Urine Opiates Screen Negative ng/mL (Negative) 03/15/23 01:09 Acetaminophen < 5.0 ug/mL (10-30) L 03/15/23 00:31 Ur Barbiturates Screen Negative ng/mL (Negative) 03/15/23 01:09 Ur Phencyclidine Scrn Negative ng/mL (Negative) 03/15/23 01:09 Ur Amphetamines Screen Negative ng/mL (Negative) 03/15/23 01:09 U Benzodiazepines Scrn Negative ng/mL (Negative) 03/15/23 01:09 Urine Cocaine Screen Negative ng/mL (Negative) 03/15/23 01:09 U Marijuana (THC) Screen Negative ng/mL (Negative) 03/15/23 01:09 Ethyl Alcohol < 10 mg/dL (0-10) 03/15/23 00:31 EKG Data EKG 1: I personally reviewed and interpreted this EKG as follows: EKG interpretation date: 03/15/23 EKG interpretation time: 01:30 Interpretation: nsr hr [address] or t wave abnormalities qrs 94 qtc 414 Discharge Plan Discharge Condition: Stable Prescriptions: No Action hydroxyzine pamoate [Vistaril] 25 mg capsule 50 mg PO QID PRN (Reason: Anxiety) bismuth subsalicylate [Pepto-Bismol] 262 mg/15 mL Suspension 524 mg PO Q1H MDD 8 PRN (Reason: Nicotine Cravings) Rx Instructions: do not exceed 8 doses in a 24 hour period nicotine (polacrilex) [Nicorette] 4 mg Lozenge 4 mg BUCCAL Q4H PRN (Reason: Nicotine Cravings) fluoxetine 20 mg Capsule 60 mg PO DAILY 30 Days Qty: 90 1RF Minipress 1 mg capsule 3 mg PO BEDTIME 30 Days Qty: 90 1RF Trileptal 300 mg tablet 300 mg PO BID 30 Days Qty: 60 1RF Seroquel 100 mg tablet 100 mg PO BEDTIME@21 30 Days Qty: 30 1RF Invega Sustenna 234 mg/1.5 mL syringe 234 mg IM Q30D Qty: 1.5 1RF Rx Instructions: Due for IM maintenance on 03/04/23. Given by nurse at physicians office or Behavioral Crisis Coding Level of Care Code ED Outside Upholsterer for Eric Glover
[2023-03-15] MEDS: nicotine 21 mg Patch 1 PATCH TRANSDERMA (01:19)
[2023-03-15 01:24] LABS: Amphetamines Screen Urine Negative (Negative); Barbiturates Screen Urine Negative (Negative); Benzodiazepines Screen Urine Negative (Negative); Cocaine Screen Urine Negative (Negative); Opiate Screen Urine Negative (Negative); PCP Screen Urine Negative (Negative); THC Screen Urine Negative (Negative)
[2023-03-15 01:27] LABS: Acetaminophen < 5.0 ug/mL (10-30); Alanine Aminotransferase 47 U/L (0-41); Albumin Level 4.3 g/dL (3.5-5.2); Alcohol Level < 10 mg/dL (0-10); Alkaline Phosphatase 81 U/L (40-130); Anion Gap 16.5 (5-19); Aspartate Amino Transferase 27 U/L (0-40); Blood Urea Nitrogen 11 mg/dL (6-20); Calcium 9.3 mg/dL (8.5-10.5); Carbon Dioxide 22 mmol/L (22-29); Chloride 101 mmol/L (98-107); Globulin 2.9 g/dL (1.3-4.6); Glucose 90 mg/dL (65-115); Osmolality Calculated 281 mOsm/kg (285-295); Potassium 3.5 mmol/L (3.5-5.1); Salicylate < 0.3 mg/dL (3-10); Sodium 136 mmol/L (136-145); Total Bilirubin 0.2 mg/dL (0.15-1.2); Total Protein 7.2 g/dL (6.6-8.7)
[2023-03-15 02:48] VITALS: BP 113/76; PULSE 92; RESP 16; O2SAT 96
--- NOTE | 2023-03-18 13:42 | DCPLANNER ---
staff development manager was triggered to call patient due to no primary care physician - not a good phone number listed in chart.
== END 2023-03-15 07:46 ==
PROVIDERS: Emergency Provider Emergency Medicine
DX: R45.851 Suicidal ideations (principal); F32.A Depression, unspecified; R45.850 Homicidal ideations
CPT/HCPCS: 80053; 80306; 80307; 85025; 93005; 99284

== ENCOUNTER 2023-03-22 02:54 | Inpatient (IN) | payer MEDICAID, SELFPAY ==
[2021-09-25 16:09] VITALS: BMI 39.9
[2023-03-22 02:55] VITALS: BP 131/71; PULSE 77; RESP 20; TEMP 36.6; O2SAT 91; BMI 35.5
--- NOTE | 2023-03-22 03:07 | ED.C_ITS ---
HPI - Psych General: Chief Complaint: Psychiatric Symptoms Stated Complaint: SI, ETOH on board Time Seen by Provider: 03/22/23 03:06 Source: patient Mode of arrival: EMS Limitations: no limitations History of Present Illness: Patient is a 28-year-old male who presents to ED today via EMS for evaluation and treatment of suicidal ideations. Patient tells me over the last 2 days he had been hanging with some friends when they abandoned him making him feel suicidal. He has reportedly been drinking today. He reports a recent hospitalization at [facility] for suicidal ideations. He was recently released a few days ago. Patient has been seen at our facility multiple times for psychiatric complaints. Patient states he has a plan to jump out in front of traffic. Denies homicidal ideations. MD complaint: suicidal ideation and feels depressed Onset (ago): day(s) Duration: constant History of same: Yes Relieving factors: none Exacerbating factors: none Associated psychiatric symptoms: depression and suicidal ideation Associated symptoms: Reports depression and suicidal ideation If self harm: admits thoughts of self harm Review of Systems Const: Denies: fever(s) or chills Card: Denies: chest pain, palpitations, lightheadedness or syncope Resp: Denies: dyspnea GI: Denies: abdominal pain, nausea, vomiting or diarrhea Skin/Breast: Denies: rash Neuro: Denies: headache(s) Psych: Reports: depression and suicidal ideation [facility] ED PFSH: Medical History Major depressive disorder, recurrent severe without psychotic features Psychiatric care Social History Smoking and tobacco status: current every day smoker e-cigarettes E-Cigarette Details: vaporizer device and with nicotine E-cig/vape details: 5 mg/Day Quit status (tobacco): considering quitting Second hand smoke exposure: No Current gender identity: Male Physical Exam Const: COMMON NORMALS: no acute distress, patient oriented x3, alert and well nourished GENERAL APPEARANCE: cooperative and well kempt Resp: COMMON NORMALS: normal respiratory effort and clear to auscultation bilaterally AUSCULTATION: clear to auscultation bilaterally Cardio: COMMON NORMALS: regular rate and regular rhythm RATE: regular rate RHYTHM: regular rhythm Neuro: COMMON NORMALS: patient oriented x3 SENSORIUM/ORIENTATION: Yes alert Psych: COMMON NORMALS: mental status grossly normal, Normal thought process present, cooperative, speech normal, activity/motor behavior normal, denies hallucinations and denies homicidal ideation APPEARANCE: Yes grossly normal and Yes well kempt ATTITUDE: Yes calm ACTIVITY/MOTOR BEHAVIOR: No psych omotor agitation and Yes Avoids eye contact (attititude/behavior) SPEECH: Yes normal speech MOOD & AFFECT: Yes Flat affect present THOUGHT PROCESS: Normal thought process present ATTENTION/CONCENTRATION: Yes attention grossly intact and Yes concentration grossly intact MEMORY/COGNITION: Yes memory grossly intact and Yes cognition grossly intact INSIGHT: Good insight present (Psych) JUDGEMENT: Good judgement present (Psych) Course Consultations: Consultation #1: Dr. Huntley-accepts to NPU Vital Signs: Vital signs: Vital Signs Temperature 97.8 F 03/22/23 02:55 Pulse Rate 77 03/22/23 02:55 Respiratory Rate 20 H 03/22/23 02:55 Blood Pressure 131/71 03/22/23 02:55 Pulse Oximetry 91 03/22/23 02:55 Oxygen Delivery Me thod Room Air 03/22/23 02:55 [facility] - Psych Medical Decision Making Will be an admit to NPU to Dr. Huntley for treatment of suicidal ideations. He is voluntary with affidavit. Lab Data 03/22/23 02:00 03/22/23 02:00 Laboratory Results WBC 7.6 10^3/uL (4.0-10.0) 03/22/23 02:00 RBC 4.76 10^6/uL (4.1-5.3) 03/22/23 02:00 Hgb 13.4 g/dL (11.7-16.6) 03/22/23 02:00 Hct 41.4 % (42.0-52.0) L 03/22/23 02:00 MCV 87.0 fl (80-94) 03/22/23 02:00 MCH 28.2 pg (28.0-34.0) 03/22/23 02:00 MCHC 32.4 g/dL (30.0-36.0) 03/22/23 02:00 RDW 12.7 % (12.1-15.1) 03/22/23 02:00 Plt Count 186 10^3/cmm (130-400) 03/22/23 02:00 MPV 11.7 fL (7.4-10.4) H 03/22/23 02:00 Neut % (Auto) 53.9 % 03/22/23 02:00 Lymph % (Auto) 35.1 % 03/22/23 02:00 [place] % (Auto) 8.7 % 03/22/23 02:00 Eos % (Auto) 1.6 % 03/22/23 02:00 Baso % (Auto) 0.3 % 03/22/23 02:00 Neut # (Auto) 4.08 10^3/uL (1.8-7.7) 03/22/23 02:00 Lymph # (Auto) 2.7 10^3/uL (0.8-4.8) 03/22/23 02:00 [place] # (Auto) 0.7 10^3/uL (0.2-0.9) 03/22/23 02:00 Eos # (Auto) 0.1 10^3/uL (0.0-0.8) 03/22/23 02:00 Baso # (Auto) 0.0 10^3/uL (0.0-0.1) 03/22/23 02:00 Nucleated RBC % (auto) 0 % 03/22/23 02:00 Nucleated RBCs # 0.0 /100WBC 03/22/23 02:00 Sodium 138 mmol/L (136-145) 03/22/23 02:00 Potassium 3.9 mmol/L (3.5-5.1) 03/22/23 02:00 Chloride 103 mmol/L (98-107) 03/22/23 02:00 Carbon Dioxide 21 mmol/L (22-29) L 03/22/23 02:00 Anion Gap 17.9 (5-19) 03/22/23 02:00 BUN 14 mg/dL (6-20) 03/22/23 02:00 Creatinine 0.8 mg/dL (0.7-1.2) 03/22/23 02:00 GFR Calculation 116.9 mL/min (90-130) 03/22/23 02:00 Glucose 82 mg/dL (65-115) 03/22/23 02:00 Calculated Osmolality 286 mOsm/kg (285-295) 03/22/23 02:00 Calcium 9.4 mg/dL (8.5-10.5) 03/22/23 02:00 Total Bilirubin 0.2 mg/dL (0.15-1.2) 03/22/23 02:00 AST 39 U/L (0-40) 03/22/23 02:00 ALT 64 U/L (0-41) H 03/22/23 02:00 Alkaline Phosphatase 84 U/L (40-130) 03/22/23 02:00 Total Protein 6.7 g/dL (6.6-8.7) 03/22/23 02:00 Albumin 4.1 g/dL (3.5-5.2) 03/22/23 02:00 Globulin 2.6 g/dL (1.3-4.6) 03/22/23 02:00 Salicylates < 0.3 mg/dL (3-10) L 03/22/23 02:00 Urine Opiates Screen Negative ng/mL (Negative) 03/22/23 03:45 Acetaminophen < 5.0 ug/mL (10-30) L 03/22/23 02:00 Ur Phencyclidine Scrn Negative ng/mL (Negative) 03/22/23 03:45 Urine Cocaine Screen Negative ng/mL (Negative) 03/22/23 03:45 U Marijuana (THC) Screen Positive ng/mL (Negative) H 03/22/23 03:45 Ethyl Alcohol 119 mg/dL (0-10) H 03/22/23 02:00 Discharge Plan Discharge Patient Disposition: Admitted As Inpatient Clinical Impression: Suicidal ideation Condition: Stable Coding Level of Care Code ED Valve Assembler for Eric Glover
[2023-03-22 03:15] LABS: Basophils % 0.3 %; Eosinophils # 0.1 10^3/uL (0.0-0.8); Eosinophils % 1.6 %; Hematocrit 41.4 % (42.0-52.0); Hemoglobin 13.4 g/dL (11.7-16.6); Lymphocytes # 2.7 10^3/uL (0.8-4.8); Lymphocytes % 35.1 %; Mean Corpuscular HGB Conc 32.4 g/dL (30.0-36.0); Mean Corpuscular Hemoglobin 28.2 pg (28.0-34.0); Mean Platelet Volume 11.7 fL (7.4-10.4); Monocytes # 0.7 10^3/uL (0.2-0.9); Monocytes % 8.7 %; Neutrophils # 4.08 10^3/uL (1.8-7.7); Neutrophils % 53.9 %; Nucleated Red Blood Cells % 0 %; Platelet Count 186 10^3/cmm (130-400); Red Blood Count 4.76 10^6/uL (4.1-5.3); Red Cell Distribution Width 12.7 % (12.1-15.1); White Blood Count 7.6 10^3/uL (4.0-10.0)
[2023-03-22 03:28] LABS: Alanine Aminotransferase 64 U/L (0-41); Albumin Level 4.1 g/dL (3.5-5.2); Alcohol Level 119 mg/dL (0-10); Alkaline Phosphatase 84 U/L (40-130); Anion Gap 17.9 (5-19); Aspartate Amino Transferase 39 U/L (0-40); Blood Urea Nitrogen 14 mg/dL (6-20); Calcium 9.4 mg/dL (8.5-10.5); Carbon Dioxide 21 mmol/L (22-29); Chloride 103 mmol/L (98-107); Globulin 2.6 g/dL (1.3-4.6); Glomerular Filtration Rate 116.9 mL/min (90-130); Glucose 82 mg/dL (65-115); Osmolality Calculated 286 mOsm/kg (285-295); Potassium 3.9 mmol/L (3.5-5.1); Sodium 138 mmol/L (136-145); Total Bilirubin 0.2 mg/dL (0.15-1.2); Total Protein 6.7 g/dL (6.6-8.7)
[2023-03-22 03:46] LABS: Acetaminophen < 5.0 ug/mL (10-30); Salicylate < 0.3 mg/dL (3-10)
[2023-03-22 04:10] LABS: Cocaine Screen Urine Negative (Negative); Opiate Screen Urine Negative (Negative); PCP Screen Urine Negative (Negative); THC Screen Urine Positive (Negative)
[2023-03-22 04:54] LABS: Amphetamines Screen Urine Negative (Negative); Barbiturates Screen Urine Negative (Negative); Benzodiazepines Screen Urine Negative (Negative)
[2023-03-22 04:56] VITALS: BP 129/74; PULSE 79; RESP 18; TEMP 36.6; O2SAT 96
[2023-03-22 05:29] VITALS: BP 129/74; PULSE 79; RESP 18; TEMP 36.6; O2SAT 96
[2023-03-22 05:32] VITALS: BP 131/71; PULSE 77; RESP 20; TEMP 36.6; O2SAT 91
--- NOTE | 2023-03-22 06:19 | PC.NURSE ---
Pt arrived to NPU with RN and security staff at side. Pt is calm and cooperative. States that he has increased depression b/c his friends left him after he had been drinking. Denies current SI thoughts. Pt states he is no longer at [facility] and is homeless currently. Thiamine inj administered per orders.
[2023-03-22] MEDS: multivitamin therapeutic Tablet 1 TAB PO (09:02)
[2023-03-22] MEDS: folic acid 1 mg Tablet PO (09:02)
[2023-03-22] MEDS: thiamine 100 mg Tablet PO (09:02)
--- NOTE | 2023-03-22 11:23 | W.PM.NPUH&PS ---
Providers/Chief Complaint Admitting Physician: Timur Huntley MD Chief Complaint: SI, ETOH on board HPI NPU History of Present Illness Braulio Terrazas is a 28 year old male who presented to the emergency department with the following report: Chief Complaint: Psychiatric Symptoms Stated Complaint: SI, ETOH on board Time Seen by Provider: 03/22/23 03:06 Source: patient Mode of arrival: EMS Limitations: no limitations History of Present Illness: Patient is a 28-year-old male who presents to ED today via EMS for evaluation and treatment of suicidal ideations. Patient tells me over the last 2 days he had been hanging with some friends when they abandoned him making him feel suicidal. He has reportedly been drinking today. He reports a recent hospitalization at [place] for suicidal ideations. He was recently released a few days ago. Patient has been seen at our facility multiple times for psychiatric complaints. Patient states he has a plan to jump out in front of traffic. Denies homicidal ideations. complaint: suicidal ideation and feels depressed Onset (ago): day(s) Duration: constant History of same: Yes Relieving factors: none Exacerbating factors: none Associated psychiatric symptoms: depression and suicidal ideation Associated symptoms: Reports depression and suicidal ideation If self harm: admits thoughts of self harm He was admitted to the neuropsychiatric unit for definitive treatment of those issues. He presents today, well-known to this curriculum writer from previous inpatient hospitalizations. This is his fourth hospitalization at [facility] neuropsychiatric unit since December 06, 2022. In that time he is also been at [place] in [place] at least 1 time. Prior to that he had not been hospitalized since September 2021. He presents today reporting a fairly hard to follow story with major concerns of whether it is real or delusional or made up. He reports that he is in some friends were walking around with their shoes off. That occasionally they would jog around. Eventually reports at 1 point they started running and he could not keep up and they just kept running and left him. He reports that he thought they were joking and would definitely return but they did not. He reports that once they did not return so he really feeling bad about himself and questioning why they would do that. He started feeling bad and left behind in having negative thoughts about himself. He reports that he has been taking his medication which included Vistaril and Seroquel. However he does endorse that he was hospitalized at [place] not too long ago and while there they did not continue his Invega. However being on the injection it is unclear whether he was there during a time that he should have administer the injection. He reports that he ended up at [place] because after discharging to [facility] from here back in February he started having problems with somebody living at [facility] as well. He reports that with a mau that was being creepy. He reports that [facility] wanted him to leave because they took offense to his thoughts about this mau being creepy. He reports that [facility] did not want him to return. We discussed him possibly needing greater outpatient support. We also discussed evaluating when he had his last Invega injection and considering restarting the Invega Sustenna injection and working on further residential stability and he understood and agreed to proceed as is documented in this note. An excerpt of his last hospitalization February 2023 is included below for context given lack of substantive changes since then and his psychosocial reality as well as other history. 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 He had reported that over the past 4 to 5 days while staying at [facility] he had felt that everyone was red in the face in that place . He reports that he had felt that he was being held in a facility with a bunch of pedophiles . He had endorsed that he had been having recurrent auditory hallucinations that have been getting worse. He had reported that he has been sober without any alcohol or marijuana for several months. He states that he had left the inpatient facility at [facility] and began walking outside and stated that he had wanted to walk in front of traffic with the intent to kill himself. Patient reports that the police had arrived and had taken him to the emergency department for further evaluation. He was admitted to the neuropsychiatric unit for further evaluation and treatment. Per records, the head and neck surgeon had indicated that the patient had made a threat to shoot them although he reported that he had no such thoughts of wanting to harm another person. Previous documents indicate that the patient has received his Invega Sustenna intramuscular on February at the [facility] inpatient unit. He reports that he has been feeling more depressed and endorses suicidal thoughts along with repeated hallucinations that are distracting for him. He reports no substantial changes in his medication regimen or his history compared to his previous admission less than 10 days ago. That that is what I thought so he needs he needs a higher dose of that so I will not have to add a little bit of something to this much appreciated yet by Excerpt from 02/06/23 discharge summary at Neuropsychiatric unit. Brief History: History of Present Illness Braulio Terrazas is a 27 year old male to the emergency department with the following report: Chief Complaint: Psychiatric Symptoms Stated Complaint: SI Time Seen by Provider: 02/03/23 09:44 Source: patient Mode of arrival: ambulatory Limitations: no limitations History of Present Illness: Patient is a 27-year-old male who presents to ED today for evaluation of suicidal ideations. Patient states he has felt suicidal for several days now. He states he has a plan to run out in front of traffic. Patient reportedly is at [facility] rehabilitation from alcohol abuse and he states many of the residents are causing him to feel suicidal. He states it is a high stress/high emotion environment and he does not seem to be coping well. He does report previous suicide attempts. Patient states he was released from NPU approximately a month and a half ago. He has been taking all of his psychiatric medications as prescribed. Reports hallucinations but states he has schizophrenia so these are chronic. MD complaint: suicidal ideation and feels depressed Onset (ago): day(s) Duration: constant History of same: Yes Context: significant life stressor Associated psychiatric symptoms: depression and suicidal ideation Associated symptoms: Reports auditory hallucinations, visual hallucinations, depression and suicidal ideation; Deny homicidal ideation Treatments prior to arrival: none If self harm: admits thoughts of self harm He was admitted to the neuropsychiatric unit for definitive treatment of those issues. He presents today reporting that he is just feeling depressed. He was just discharged from here 12/29/2022 and an excerpt of that discharge is included below for context and the fact that after he left here he went directly to [facility] and is now coming back from [facility]. He reports that he is near completion of the program and they are looking for options for him. He acknowledged that probably some of the sadness of feeling overwhelmed has to do with the fact that he is homeless and they have not found a viable option for him at this point though they are fully prepared to receive him back at discharge from here. We discussed the fact that his Prozac is only a 20 mg which is a fairly low-dose and discussed the risks, benefits and alternatives of increasing that to 40 mg and he understood and agreed to proceed as is documented in this note. We discussed this hopefully being a short stay was an increase in his antidepressant and collaboration with [facility] for him to return when he is able to contract for safety. 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 He stated that he had been feeling paranoid about things disappearing from his phone. He had reported that he was having some suicidal thoughts at this time. He reported that he had had problems with concentration and states that he had not been sleeping well. He had reported having a history of psychotic symptoms for for several years and stated that he had previously used inhalants and had huffed gasoline at a young age. He had also endorsed an extended history of substance use stating that he had been drinking at a young age. He reports that he had been scheduled to receive his second dose of Invega Sustenna on 12/17/2022 but he had missed his appointment and had been without his medication to target his psychosis. The patient reported no substantial changes since his last hospitalization Per Previous Discharge on 12/05/22 HPI: Braulio Terrazas is a 27 year old male who presented to the emergency department with the following report: Chief Complaint: Psychiatric Symptoms Stated Complaint: SI Time Seen by Provider: 12/05/22 05:13 Source: patient Mode of arrival: ambulatory Limitations: no limitations History of Present Illness: 27-year-old male has history of schizophrenia along with depression and bipolar disorder he states that over the last few days he been having increased hallucinations along with suicidal ideations he states he has not been taking his meds he supposed be on risperidone he has not been taking them. He denies any worsening improving factors at this time. Associated symptoms: Reports depression He was admitted to the neuropsychiatric unit for definitive treatment of those issues. He presents fairly focused on his somewhat hyper scientology, conspiratorial delusions making it hard for him to stay on task and normal question and answering situations. What we were able to glean from the conversation is that he has been hospitalized recently in another hospital in the past 2 to 4 weeks but that he currently has no medications and has not been taking medication. He is reportedly homeless now and has not been able to really meet his needs because he is stuck in a shed possibly on his family's property or having no place to stay but certainly without stability that would allow him to get his mental health issues back on track. In excerpt of his past hospitalization in 2020 is included below for context. His drug screen was only positive for cannabis. We discussed the risk benefits and alternatives of reviewing his medications and restarting some of the medications at appropriate initiation doses and he understood and agreed to proceed as it is documented in this note. 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: Status: Acute (9) Generalized anxiety disorder: Status: Acute Reason for Visit Reason for Visit: SI Brief History: History of Present Illness Braulio Terrazas is a 26 year old male who presented to the emergency department with the following report: Chief Complaint: Psychiatric Symptoms Stated Complaint: SI Time Seen by Provider: 09/14/21 19:09 History of Present Illness: MD complaint: suicidal ideation and feels depressed Onset (ago): day(s) Duration: constant and getting worse History of same: Yes Relieving factors: none Exacerbating factors: none Associated psychiatric symptoms: depression and suicidal ideation Associated symptoms: Reports auditory hallucinations, delusions and suicidal ideation; Deny homicidal ideation If self harm: admits thoughts of self harm and has plan. He was admitted to the neuropsychiatric unit for definitive treatment of those issues. Patient has recently been discharged from the unit and at that time there were concerns about his readiness for discharge. He presents today discussing that there are things that we discussed again interplay. The fragility of his living arrangements led to him moving out, getting kicked out, breaking up with his girlfriend and then reconnecting with her creating emotional turmoil and homelessness. He presented reporting that he started having thoughts to hurt himself/kill himself but denies any new issues outside of the lingering and psychosocial challenges that were part of our concerns about his stability during the last admission. Risk-benefit terms of maintaining his medication at the current doses given that he just changed them in the past week. And he understood agreed receipt as documented in his note. Given the no substantive changes and H&P from a little over a week ago an excerpt from that note is included below for context. Hospital Course The patient responded well to an increase in his overall antipsychotic. He had been receiving 157 mg intramuscularly of Invega sustain a on a regular basis over the last 2 months but it was deemed to be below what was necessary to prevent psychosis from reemerging. It was determined that the next maintenance dose should be 234 mg as a maintenance dose instead. And lieu of an additional amount of Invega sustain a 3 mg was added orally until that time. With improvement noted in regards to his psychosis. Furthermore Prozac was titrated up to 60 mg daily to target depression. During the hospitalization, patient had routine laboratory studies which were within normal limits except for few outliers. Additionally there was a general medical evaluation which was also within normal limits and revealed no new acute processes.At the time of discharge, lethality was denied and psychosis was resolving. Mood and anxiety were well managed. Patient endorsed a plan to avoid all drugs of abuse and follow-up with the aftercare recommendations of the treatment team. Patient was evaluated and deemed to be absent credible lethality, and had achieved the maximum benefit from an inpatient hospitalization, so was discharged. The patient was agreeable to attendance at [facility] as a nursing home. Meds NPU Home Medications Medication Instructions Recorded Confirmed Last Taken Type oxcarbazepine 300 mg tablet 300 mg PO BID 30 days #60 tabs 02/18/23 03/22/23 Unknown Rx (Trileptal) quetiapine 100 mg tablet (Seroquel) 100 mg PO BEDTIME@21 30 days #30 02/18/23 03/22/23 Unknown Rx tabs Allergies Allergy/AdvReac Type Severity Reaction Status Date / Time No Known Allergies Allergy Verified 02/11/23 22:50 PFS NPU PFSH: Medical History Major depressive disorder, recurrent severe without psychotic features Psychiatric care Social History Smoking and tobacco status: current every day smoker e-cigarettes E-Cigarette Details: vaporizer device and with nicotine E-cig/vape details: 5 mg/Day Quit status (tobacco): considering quitting Second hand smoke exposure: No Current gender identity: Male Mental Status Exam MSE Comments: This is an obese white male in hospital scrubs with limited grooming and eye contact. No abnormal movements except for psychomotor retardation. Cooperative with exam in mild distress. Speech was decreased rate and normal volume. Mood described as depressed, affect congruent. Thought process organized. Thought content: Patient endorsed some suicidal but denied homicidal ideations, there were no delusions reported or noted, he denied any visual hallucinations but endorses auditory hallucinations. Attention, concentration and memory appear intact but were not formally tested. He is alert and oriented x3. Insight, judgment and impulse control are limited. 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 inpatient stay reporting that he had a troubling interaction with his friends which led to a 911 call and him feeling overwhelmed with suicidal ideation along with active psychosis. 1.? Continue current medications. We will explore whether restarting the Invega which had not been continued would be appropriate. 2. Continue every 15 minute checks for safety. 3.? Encourage individual, group and milieu therapies. 4.? Encourage sober living treatment after discharge at the highest level of care to which he is willing to commit. 5.? Work with treatment team to ensure he has maximum outpatient services vis-?-vis case management. Involuntary Hold Information 96 Hour Hold: 96 Hour Involuntary Admission: No 96 Hour Hold Ending Date: 02/17/23 96 Hour Hold Ending Time: 22:49 Attestations NPU Medical Necessity Statement*: Inpatient hospitalization is medically necessary and the clinically appropriate intervention at this time. We will monitor and make medication changes as indicated.?Patient will be here for at least 2 midnights. Likely length of stay 3-5 days. 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
[2023-03-22 14:00] VITALS: BP 132/84; PULSE 71; RESP 17; TEMP 36.6; O2SAT 96
[2023-03-22 21:04] VITALS: BP 124/71; PULSE 62; RESP 18; TEMP 36.7; O2SAT 94
[2023-03-23 06:00] VITALS: BP 119/63; PULSE 58; RESP 16; TEMP 36.6; O2SAT 98
[2023-03-23] MEDS: folic acid 1 mg Tablet PO (09:24)
[2023-03-23] MEDS: multivitamin therapeutic Tablet 1 TAB PO (09:24)
[2023-03-23] MEDS: thiamine 100 mg Tablet PO (09:24)
--- NOTE | 2023-03-23 11:56 | P.NPUPN_ITS ---
Subjective NPU Subjective: Patient presented today reporting feeling a little better and looking brighter. We continue to discuss the need for him to find some stability as his parents seems improved with the safety of the unit. We discussed continuing the long- acting injectable which appears to be due in less than a week. He endorsed being okay with that plan. He is working with the social work team on discharge planning. Mental Status Exam MSE Comments: This is an obese white male in hospital scrubs with limited grooming and eye contact. No abnormal movements except for psychomotor retardation. Cooperative with exam in mild distress. Speech was decreased rate and normal volume. Mood described as a little better maybe, affect congruent. Thought process organized. Thought content: Patient endorsed some suicidal but denied homicidal ideations, there were no delusions reported or noted, he denied any visual hallucinations but endorses auditory hallucinations. Attention, concentration and memory appear intact but were not formally tested. He is alert and oriented x3. Insight, judgment and impulse control are limited. 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 inpatient stay reporting that he had a troubling interaction with his friends which led to a 911 call and him feeling overwhelmed with suicidal ideation along with active psychosis. 1.? Continue current medications. We will continue Invega Sustenna with injection to 03/30/2023. 2. Continue every 15 minute checks for safety. 3.? Encourage individual, group and milieu therapies. 4.? Encourage sober living treatment after discharge at the highest level of care to which he is willing to commit. 5.? Work with treatment team to ensure he has maximum outpatient services vis-?-vis case management. Involuntary Hold Information 96 Hour Hold: 96 Hour Involuntary Admission: No 96 Hour Hold Ending Date: 02/17/23 96 Hour Hold Ending Time: 22:49 Attestations NPU Medical Necessity Statement*: Inpatient hospitalization is medically necessary and the clinically appropriate intervention at this time. We will monitor and make medication changes as indicated.? Likely length of stay 3-5 days. 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
[2023-03-23 14:00] VITALS: BP 143/77; PULSE 81; RESP 19; TEMP 36.5; O2SAT 96
[2023-03-23] MEDS: nicotine 4 mg lozenge MUCOUS MEM ×4 (15:40→22:53)
[2023-03-23] MEDS: trazodone 50 mg Tablet PO (20:58)
[2023-03-23 21:08] VITALS: BP 135/72; PULSE 69; RESP 18; TEMP 36.7; O2SAT 96
[2023-03-24 06:00] VITALS: BP 119/69; PULSE 55; RESP 18; TEMP 36.4; O2SAT 97
[2023-03-24] MEDS: multivitamin therapeutic Tablet 1 TAB PO (08:33)
[2023-03-24] MEDS: folic acid 1 mg Tablet PO (08:33)
[2023-03-24] MEDS: thiamine 100 mg Tablet PO (08:33)
[2023-03-24 13:22] VITALS: BP 130/90; PULSE 67; RESP 16; TEMP 36.7; O2SAT 94
--- NOTE | 2023-03-24 17:34 | W.PM.NPUPNS ---
Subjective NPU Subjective: Patient presented today reporting that he is feeling better. He is also agreeable to continuing the Invega injection. He was unclear however what his plan was going to be after discharge. He reports that he is making a call and working with the social work team for possible residential assistance but is trying to see if he can stay with a cousin. We talked about the likelihood of discharge in the next 48 hours. Mental Status Exam MSE Comments: This is an obese white male in hospital scrubs with limited grooming and eye contact. No abnormal movements except for psychomotor retardation. Cooperative with exam in mild distress. Speech was decreased rate and normal volume. Mood described as a little better, affect congruent. Thought process organized. Thought content: Patient endorsed some suicidal but denied homicidal ideations, there were no delusions reported or noted, he denied any visual hallucinations but endorses auditory hallucinations. Attention, concentration and memory appear intact but were not formally tested. He is alert and oriented x3. Insight, judgment and impulse control are limited. Vitals/I&O/Wt Last Vital Signs Temp 97.4 F L 03/24/23 22:00 Pulse 83 03/24/23 22:00 Resp 16 03/24/23 22:00 BP 119/78 03/24/23 22:00 Pulse Ox 96 03/24/23 22:00 O2 Del Method Room Air 03/24/23 22:00 Data NPU 03/22/23 02:00 03/22/23 02:00 A&P Assessment and plan (1) Acute psychosis: (2) Suicidal ideation: (3) Major depressive disorder, recurrent, severe with psychotic symptoms: (4) Cannabis use disorder, moderate, in early remission, dependence: (5) Nicotine dependence, unspecified, uncomplicated: (6) Cluster A personality disorder in adult: (7) Generalized anxiety disorder: Plan This is a 28-year-old white male well known to the neuropsychiatric unit with known history of depression, psychosis, addiction and residential instability who presents after recent [facility] inpatient stay reporting that he had a troubling interaction with his friends which led to a 911 call and him feeling overwhelmed with suicidal ideation along with active psychosis. 1.? Continue current medications. Invega Sustenna injection was due 03/04/2023, will restart immediately. 2. Continue every 15 minute checks for safety. 3.? Encourage individual, group and milieu therapies. 4.? Encourage sober living treatment after discharge at the highest level of care to which he is willing to commit. 5.? Work with treatment team to ensure he has maximum outpatient services vis-?-vis case management. Involuntary Hold Information 96 Hour Hold: 96 Hour Involuntary Admission: No 96 Hour Hold Ending Date: 02/17/23 96 Hour Hold Ending Time: 22:49 Attestations NPU Medical Necessity Statement*: Inpatient hospitalization is medically necessary and the clinically appropriate intervention at this time. We will monitor and make medication changes as indicated.? Likely length of stay 2-4 days. 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
[2023-03-24] MEDS: nicotine 4 mg lozenge MUCOUS MEM ×2 (20:34→22:47)
[2023-03-24 22:00] VITALS: BP 119/78; PULSE 83; RESP 16; TEMP 36.3; O2SAT 96
--- NOTE | 2023-03-24 22:25 | PC.NURSE ---
Prior to lying down for bed pt talked to his GF and became highly agitated screaming at other pts to shut the fuck up and get out of my face . Pt states that he heard his GF call someone else babe and it pissed him off . Pt went to room and slammed his door. One on one care and redirection was provided, and pt is now calmer and apologized regarding his outburst. Received PRN Zyprexa per his request and agitation w/anxiety. Now resting quietly in his room.
[2023-03-25 06:00] VITALS: BP 139/64; PULSE 76; RESP 15; O2SAT 97
[2023-03-25] MEDS: folic acid 1 mg Tablet PO (09:08)
[2023-03-25] MEDS: multivitamin therapeutic Tablet 1 TAB PO (09:09)
[2023-03-25] MEDS: paliperidone palmitate 234 mg Syringe IM (09:09)
[2023-03-25] MEDS: nicotine 4 mg lozenge MUCOUS MEM ×5 (09:09→22:51)
[2023-03-25] MEDS: thiamine 100 mg Tablet PO (09:09)
--- NOTE | 2023-03-25 09:52 | PC.NURSE ---
Administered 234mg IM Invega to right deltoid, pt tolerated well.
[2023-03-25 14:06] VITALS: BP 133/72; PULSE 68; RESP 16; TEMP 36.7; O2SAT 96
--- NOTE | 2023-03-25 19:09 | W.PM.NPUPNS ---
Subjective NPU Subjective: Patient presented today reporting that he is feeling a little better still has not contacted this cousin that is going to be his possible discharge plan. We discussed the fact that he would not be able to do stay here because he has not developed an exit strategy. Just prior to relating that he gave me a sheet of paper that had multiple questions. It is unclear whether this was meant to establish that he had some continued psychotic thinking as there were questions about possible psychotic thoughts and paranoia. Mental Status Exam MSE Comments: This is an obese white male in hospital scrubs with limited grooming and eye contact. No abnormal movements except for psychomotor retardation. Cooperative with exam in mild distress. Speech was decreased rate and normal volume. Mood described as a little better, affect congruent. Thought process organized. Thought content: Patient denied suicidal or homicidal ideations, there were no delusions reported except for those couched in his letter and there were no delusions noted, he denied any visual hallucinations but endorses auditory hallucinations. Attention, concentration and memory appear intact but were not formally tested. He is alert and oriented x3. Insight, judgment and impulse control are limited. Vitals/I&O/Wt Last Vital Signs Temp 98.1 F 03/25/23 14:06 Pulse 68 03/25/23 14:06 Resp 16 03/25/23 14:06 BP 133/72 03/25/23 14:06 Pulse Ox 96 03/25/23 14:06 O2 Del Method Room Air 03/25/23 14:06 Data NPU 03/22/23 02:00 03/22/23 02:00 A&P Assessment and plan (1) Acute psychosis: (2) Suicidal ideation: (3) Major depressive disorder, recurrent, severe with psychotic symptoms: (4) Cannabis use disorder, moderate, in early remission, dependence: (5) Nicotine dependence, unspecified, uncomplicated: (6) Cluster A personality disorder in adult: (7) Generalized anxiety disorder: Plan This is a 28-year-old white male well known to the neuropsychiatric unit with known history of depression, psychosis, addiction and residential instability who presents after recent [facility] inpatient stay reporting that he had a troubling interaction with his friends which led to a 911 call and him feeling overwhelmed with suicidal ideation along with active psychosis. 1.? Continue current medications. Invega Sustenna injection was due 03/04/2023, will restart immediately. Given 03/25/2023 Invega Sustenna 234 mg IM deltoid. We will get follow-up doses as indicated. 2. Continue every 15 minute checks for safety. 3.? Encourage individual, group and milieu therapies. 4.? Encourage sober living treatment after discharge at the highest level of care to which he is willing to commit. 5.? Work with treatment team to ensure he has maximum outpatient services vis-?-vis case management. Involuntary Hold Information 96 Hour Hold: 96 Hour Involuntary Admission: No 96 Hour Hold Ending Date: 02/17/23 96 Hour Hold Ending Time: 22:49 Attestations NPU Medical Necessity Statement*: Inpatient hospitalization is medically necessary and the clinically appropriate intervention at this time. We will monitor and make medication changes as indicated.? Likely length of stay 2-4 days. 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
[2023-03-25 21:26] VITALS: BP 145/61; PULSE 93; RESP 16; TEMP 36.8; O2SAT 97
[2023-03-26] MEDS: nicotine 4 mg lozenge MUCOUS MEM ×6 (01:52→14:55)
[2023-03-26] MEDS: trazodone 50 mg Tablet PO (01:52)
[2023-03-26 06:00] VITALS: BP 115/68; PULSE 63; RESP 16; TEMP 36.4; O2SAT 100
[2023-03-26] MEDS: folic acid 1 mg Tablet PO (09:07)
[2023-03-26] MEDS: thiamine 100 mg Tablet PO (09:07)
[2023-03-26] MEDS: multivitamin therapeutic Tablet 1 TAB PO (09:07)
--- NOTE | 2023-03-26 09:19 | PC.NURSE ---
Patient states he did not sleep well last night, but feels great. Smiling often this morning. Patient denies SI/HI and AVH. He states, I can tell I'm manic! But that's okay. Patient talking with his hands this morning about how he is feeling very positive. He says he is anxious and excited because the social workers told him they found him somewhere to stay and that it is making him feel better. 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 Patient pleasant. Is rocking back and forth on his feet while talking.
--- NOTE | 2023-03-26 10:11 | P.NPUPN_ITS ---
Subjective NPU Subjective: Patient presented today reporting that he is doing a little better each day. He has not made contact with his cousin but has reportedly tried to talk to other people. He is working with the social work team and we discussed the fact that at this point we may need to focus on possible resources outside of the area like [place]. He reports that the thought of going out of the area scary but he understands he does not have many options. We discussed working with the treatment team today to see if we could get something figured out for today or tomorrow. He reports that he will try as well. Mental Status Exam MSE Comments: This is an obese white male in hospital scrubs with limited grooming and eye contact. No abnormal movements except for psychomotor retardation. Cooperative with exam in mild distress. Speech was more normal rate and normal volume. Mood described as a little better, affect congruent. Thought process organized. Thought content: Patient denied suicidal or homicidal ideations, there were no delusions reported except for those couched in his letter and there were no delusions noted, he denied any visual hallucinations but endorses auditory hallucinations. Attention, concentration and memory appear intact but were not formally tested. He is alert and oriented x3. Insight, judgment and impulse control are limited. Vitals/I&O/Wt Last Vital Signs Temp 97.6 F 03/26/23 06:00 Pulse 63 03/26/23 06:00 Resp 16 03/26/23 06:00 BP 115/68 03/26/23 06:00 Pulse Ox 100 03/26/23 06:00 O2 Del Method Room Air 03/26/23 06:00 Data NPU 03/22/23 02:00 03/22/23 02:00 A&P Assessment and plan (1) Acute psychosis: (2) Suicidal ideation: (3) Major depressive disorder, recurrent, severe with psychotic symptoms: (4) Cannabis use disorder, moderate, in early remission, dependence: (5) Nicotine dependence, unspecified, uncomplicated: (6) Cluster A personality disorder in adult: (7) Generalized anxiety disorder: Plan This is a 28-year-old white male well known to the neuropsychiatric unit with known history of depression, psychosis, addiction and residential instability who presents after recent [facility] inpatient stay reporting that he had a troubling interaction with his friends which led to a 911 call and him feeling overwhelmed with suicidal ideation along with active psychosis. 1.? Continue current medications. Invega Sustenna injection was due 03/04/2023. Given 03/25/2023 Invega Sustenna 234 mg IM deltoid. We will get follow-up doses as indicated. 2. Continue every 15 minute checks for safety. 3.? Encourage individual, group and milieu therapies. 4.? Encourage sober living treatment after discharge at the highest level of care to which he is willing to commit. 5.? Work with treatment team to ensure he has maximum outpatient services vis-?-vis case management. Involuntary Hold Information 96 Hour Hold: 96 Hour Involuntary Admission: No 96 Hour Hold Ending Date: 02/17/23 96 Hour Hold Ending Time: 22:49 Attestations NPU Medical Necessity Statement*: Inpatient hospitalization is medically necessary and the clinically appropriate intervention at this time. We will monitor and make medication changes as indicated.? Likely length of stay 1-3 days. Coding Level of Care Code Acute Code for [facility] Fwd Diagnoses Acute psychosis F23 Suicidal ideation R45.851 Major depressive disorder, recurrent, severe with psychotic symptoms F33.3 Cannabis use disorder, moderate, in early remission, dependence F12.21 Nicotine dependence, unspecified, uncomplicated F17.200 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
[2023-03-26 14:00] VITALS: BP 144/88; PULSE 87; TEMP 36.8; O2SAT 97
[2023-03-26 20:07] VITALS: BP 127/78; PULSE 73; RESP 14; TEMP 36.5; O2SAT 94
[2023-03-27 06:00] VITALS: BP 112/68; PULSE 47; RESP 15; TEMP 36.4; O2SAT 97
[2023-03-27] MEDS: thiamine 100 mg Tablet PO (08:52)
[2023-03-27] MEDS: multivitamin therapeutic Tablet 1 TAB PO (08:52)
[2023-03-27] MEDS: folic acid 1 mg Tablet PO (08:52)
--- NOTE | 2023-03-27 08:55 | W.PM.NPUDCS ---
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 Patient tells me over the last 2 days he had been hanging with some friends when they abandoned him making him feel suicidal. He has reportedly been drinking today. He reports a recent hospitalization [facility] for [facility] ideations. He was recently released a few days ago. Patient has been seen at our facility multiple times for psychiatric complaints. Patient states he has a plan to jump out in front of traffic. Denies homicidal ideations. MD complaint: suicidal ideation and feels depressed Onset (ago): day(s) Duration: constant History of same: Yes Relieving factors: none Exacerbating factors: none Associated psychiatric symptoms: depression and suicidal ideation Associated symptoms: Reports depression and suicidal ideation If self harm: admits thoughts of self harm He was admitted to the neuropsychiatric unit for definitive treatment of those issues. He presents today, well-known to this report writer from previous inpatient hospitalizations. This is his fourth hospitalization at [facility] neuropsychiatric unit since December 06, 2022. In that time he is also been at [facility] in [place] at least 1 time. Prior to that he had not been hospitalized since September 2021. He presents today reporting a fairly hard to follow story with major concerns of whether it is real or delusional or made up. He reports that he is in some friends were walking around with their shoes off. That occasionally they would jog around. Eventually reports at 1 point they started running and he could not keep up and they just kept running and left him. He reports that he thought they were joking and would definitely return but they did not. He reports that once they did not return so he really feeling bad about himself and questioning why they would do that. He started feeling bad and left behind in having negative thoughts about himself. He reports that he has been taking his medication which included Vistaril and Seroquel. However he does endorse that he was hospitalized at [facility] not too long ago and while there they did not continue his Invega. However being on the injection it is unclear whether he was there during a time that he should have administer the injection. He reports that he ended up at [facility] because after discharging to [facility] from here back in February he started having problems with somebody living at [facility] as well. He reports that with a mau that was being creepy. He reports that [facility] wanted him to leave because they took offense to his thoughts about this mau being creepy. He reports that solutions did not want him to return. We discussed him possibly needing greater outpatient support. We also discussed evaluating when he had his last Invega injection and considering restarting the Invega Sustenna injection and working on further residential stability and he understood and agreed to proceed as is documented in this note. An excerpt of his last hospitalization February 2023 is included below for context given lack of substantive changes since then and his psychosocial reality as well as other history. Per his 02/18/[address] 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 He had reported that over the past 4 to 5 days while staying at [facility] he had felt that everyone was red in the face in that place . He reports that he had felt that he was being held in a facility with a bunch of pedophiles . He had endorsed that he had been having recurrent auditory hallucinations that have been getting worse. He had reported that he has been sober without any alcohol or marijuana for several months. He states that he had left the inpatient facility at [facility] and began walking outside and stated that he had wanted to walk in front of traffic with the intent to kill himself. Patient reports that the police had arrived and had taken him to the emergency department for further evaluation. He was admitted to the neuropsychiatric unit for further evaluation and treatment. Per records, the chain splitter had indicated that the patient had made a threat to shoot them although he reported that he had no such thoughts of wanting to harm another person. Previous documents indicate that the patient has received his Invega Sustenna intramuscular on February at the [facility] inpatient unit. He reports that he has been feeling more depressed and endorses suicidal thoughts along with repeated hallucinations that are distracting for him. He reports no substantial changes in his medication regimen or his history compared to his previous admission less than 10 days ago. That that is what I thought so he needs he needs a higher dose of that so I will not have to add a little bit of something to this much appreciated yet by Excerpt from 02/06/23 discharge summary at Neuropsychiatric unit. Brief History: History of Present Illness Braulio Terrazas is a 27 year old male to the emergency department with the following report: Chief Complaint: Psychiatric Symptoms Stated Complaint: SI Time Seen by Provider: 02/03/23 09:44 Source: patient Mode of arrival: ambulatory Limitations: no limitations History of Present Illness: Patient is a 27-year-old male who presents to ED today for evaluation of suicidal ideations. Patient states he has felt suicidal for several days now. He states he has a plan to run out in front of traffic. Patient reportedly is at [facility] rehabilitation from alcohol abuse and he states many of the residents are causing him to feel suicidal. He states it is a high stress/high emotion environment and he does not seem to be coping well. He does report previous suicide attempts. Patient states he was released from [facility] approximately a month and a half ago. He has been taking all of his psychiatric medications as prescribed. Reports hallucinations but states he has schizophrenia so these are chronic. MD complaint: suicidal ideation and feels depressed Onset (ago): day(s) Duration: constant History of same: Yes Context: significant life stressor Associated psychiatric symptoms: depression and suicidal ideation Associated symptoms: Reports auditory hallucinations, visual hallucinations, depression and suicidal ideation; Deny homicidal ideation Treatments prior to arrival: none If self harm: admits thoughts of self harm He was admitted to the neuropsychiatric unit for definitive treatment of those issues. He presents today reporting that he is just feeling depressed. He was just discharged from here 12/29/2022 and an excerpt of that discharge is included below for context and the fact that after he left here he went directly to [facility] and is now coming back from [facility]. He reports that he is near completion of the program and they are looking for options for him. He acknowledged that probably some of the sadness of feeling overwhelmed has to do with the fact that he is homeless and they have not found a viable option for him at this point though they are fully prepared to receive him back at discharge from here. We discussed the fact that his Prozac is only a 20 mg which is a fairly low-dose and discussed the risks, benefits and alternatives of increasing that to 40 mg and he understood and agreed to proceed as is documented in this note. We discussed this hopefully being a short stay was an increase in his antidepressant and collaboration with [facility] for him to return when he is able to contract for safety. 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 He stated that he had been feeling paranoid about things disappearing from his phone. He had reported that he was having some suicidal thoughts at this time. He reported that he had had problems with concentration and states that he had not been sleeping well. He had reported having a history of psychotic symptoms for for several years and stated that he had previously used inhalants and had huffed gasoline at a young age. He had also endorsed an extended history of substance use stating that he had been drinking at a young age. He reports that he had been scheduled to receive his second dose of Invega Sustenna on 12/17/2022 but he had missed his appointment and had been without his medication to target his psychosis. The patient reported no substantial changes since his last hospitalization Per Previous Discharge on 12/05/22 HPI: Braluio Terrazas is a 27 year old male who presented to the emergency department with the following report: Chief Complaint: Psychiatric Symptoms Stated Complaint: SI Time Seen by Provider: 12/05/22 05:13 Source: patient Mode of arrival: ambulatory Limitations: no limitations History of Present Illness: 27-year-old male has history of schizophrenia along with depression and bipolar disorder he states that over the last few days he been having increased hallucinations along with suicidal ideations he states he has not been taking his meds he supposed be on risperidone he has not been taking them. He denies any worsening improving factors at this time. Associated symptoms: Reports depression He was admitted to the neuropsychiatric unit for definitive treatment of those issues. He presents fairly focused on his somewhat hyper adventism, conspiratorial delusions making it hard for him to stay on task and normal question and answering situations. What we were able to glean from the conversation is that he has been hospitalized recently in another hospital in the past 2 to 4 weeks but that he currently has no medications and has not been taking medication. He is reportedly homeless now and has not been able to really meet his needs because he is stuck in a shed possibly on his family's property or having no place to stay but certainly without stability that would allow him to get his mental health issues back on track. In excerpt of his past hospitalization in 2020 is included below for context. His drug screen was only positive for cannabis. We discussed the risk benefits and alternatives of reviewing his medications and restarting some of the medications at appropriate initiation doses and he understood and agreed to proceed as it is documented in this note. Per his 09/17/[address] 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: Status: Acute (9) Generalized anxiety disorder: Status: Acute Reason for Visit Reason for Visit: SI Brief History: History of Present Illness Braulio Terrazas is a 26 year old male who presented to the emergency department with the following report: Chief Complaint: Psychiatric Symptoms Stated Complaint: SI Time Seen by Provider: 09/14/21 19:09 History of Present Illness: MD complaint: suicidal ideation and feels depressed Onset (ago): day(s) Duration: constant and getting worse History of same: Yes Relieving factors: none Exacerbating factors: none Associated psychiatric symptoms: depression and suicidal ideation Associated symptoms: Reports auditory hallucinations, delusions and suicidal ideation; Deny homicidal ideation If self harm: admits thoughts of self harm and has plan. He was admitted to the neuropsychiatric unit for definitive treatment of those issues. Patient has recently been discharged from the unit and at that time there were concerns about his readiness for discharge. He presents today discussing that there are things that we discussed again interplay. The fragility of his living arrangements led to him moving out, getting kicked out, breaking up with his girlfriend and then reconnecting with her creating emotional turmoil and homelessness. He presented reporting that he started having thoughts to hurt himself/kill himself but denies any new issues outside of the lingering and psychosocial challenges that were part of our concerns about his stability during the last admission. Risk-benefit terms of maintaining his medication at the current doses given that he just changed them in the past week. And he understood agreed receipt as documented in his note. Given the no substantive changes and H&P from a little over a week ago an excerpt from that note is included below for context.. Hospital Course Hospital Course He slowly acclimated to the individual, group and milieu therapy. He was off of his medications and his Invega was restarted at 234 mg IM. He had already been at the [facility] prior to returning here since his last hospitalization in February 2023 and they had not continued his Invega. He has continued this pattern of going to go back there and here but not seeming to have a clear plan. We discussed the fact that a return to the hospital may indicate a need for higher level intervention like a guardian. He has struggled to have any fixed housing. That has not changed. He spent these days on the unit with significant improvement. He worked with the social work team for possible discharge options and they were able to do that. He was able to contract for safety outside the hospital prior to discharge. During the hospitalization, patient had routine laboratory studies which were within normal limits except for few outliers. Additionally there was a general medical evaluation which was also within normal limits and revealed no new acute processes. At the time of discharge, lethality was denied and psychosis was resolving. Mood and anxiety were well managed. Patient endorsed a plan to avoid all drugs of abuse and follow-up with the aftercare recommendations of the treatment team. Patient was evaluated and deemed to be absent credible lethality, and had achieved the maximum benefit from an inpatient hospitalization, so was discharged. Involuntary Hold Information 96 Hour Hold: 96 Hour Involuntary Admission: No 96 Hour Hold Ending Date: 02/17/23 96 Hour Hold Ending Time: 22:49 Mental Status Exam MSE Comments: This is an obese white male in hospital scrubs with limited grooming and eye contact. No abnormal movements except for psychomotor retardation. Cooperative with exam in mild distress. Speech was more normal rate and normal volume. Mood described as a little better, affect congruent. Thought process organized. Thought content: Patient denied suicidal or homicidal ideations, there were no delusions reported except for those couched in his letter and there were no delusions noted, he denied any visual hallucinations but endorses auditory hallucinations. Attention, concentration and memory appear intact but were not formally tested. He is alert and oriented x3. Insight, judgment and impulse control are limited. Discharge Data Studies Completed and Pending: Laboratory Results WBC 7.6 10^3/uL (4.0- 10.0) 03/22/23 02:00 RBC 4.76 10^6/uL (4.1 -5.3) 03/22/23 02:00 Hgb 13.4 g/dL (11.7-1 6.6) 03/22/23 02:00 Hct 41.4 % (42.0-52.0 ) L 03/22/23 02:00 MCV 87.0 fl (80-94) 03/22/23 02:00 MCH 28.2 pg (28.0-34. 0) 03/22/23 02:00 MCHC 32.4 g/dL (30.0-3 6.0) 03/22/23 02:00 RDW 12.7 % (12.1-15.1 ) 03/22/23 02:00 Plt Count 186 10^3/cmm (130 -400) 03/22/23 02:00 MPV 11.7 fL (7.4-10.4 ) H 03/22/23 02:00 Neut % (Auto) 53.9 % 03/22/23 02:00 Lymph % (Auto) 35.1 % 03/22/23 02:00 [place] % (Auto) 8.7 % 03/22/23 02:00 Eos % (Auto) 1.6 % 03/22/23 02:00 Baso % (Auto) 0.3 % 03/22/23 02:00 Neut # (Auto) 4.08 10^3/uL (1.8 -7.7) 03/22/23 02:00 Lymph # (Auto) 2.7 10^3/uL (0.8- 4.8) 03/22/23 02:00 [place] # (Auto) 0.7 10^3/uL (0.2- 0.9) 03/22/23 02:00 Eos # (Auto) 0.1 10^3/uL (0.0- 0.8) 03/22/23 02:00 Baso # (Auto) 0.0 10^3/uL (0.0- 0.1) 03/22/23 02:00 Nucleated RBC % (a uto) 0 % 03/22/23 02:00 Nucleated RBCs # 0.0 /100WBC 03/22/23 02:00 Sodium 138 mmol/L (136-1 45) 03/22/23 02:00 Potassium 3.9 mmol/L (3.5-5 .1) 03/22/23 02:00 Chloride 103 mmol/L (98-10 7) 03/22/23 02:00 Carbon Dioxide 21 mmol/L (22-29) L 03/22/23 02:00 Anion Gap 17.9 (5-19) 03/22/23 02:00 BUN 14 mg/dL (6-20) 03/22/23 02:00 Creatinine 0.8 mg/dL (0.7-1. 2) 03/22/23 02:00 GFR Calculation 116.9 mL/min (90- 130) 03/22/23 02:00 Glucose 82 mg/dL (65-115) 03/22/23 02:00 Calculated Osmolal ity 286 mOsm/kg (285- 295) 03/22/23 02:00 Calcium 9.4 mg/dL (8.5-10 .5) 03/22/23 02:00 Total Bilirubin 0.2 mg/dL (0.15-1 .2) 03/22/23 02:00 AST 39 U/L (0-40) 03/22/23 02:00 ALT 64 U/L (0-41) H 03/22/23 02:00 Alkaline Phosphata se 84 U/L (40-130) 03/22/23 02:00 Total Protein 6.7 g/dL (6.6-8.7 ) 03/22/23 02:00 Albumin 4.1 g/dL (3.5-5.2 ) 03/22/23 02:00 Globulin 2.6 g/dL (1.3-4.6 ) 03/22/23 02:00 Salicylates < 0.3 mg/dL (3-10 ) L 03/22/23 02:00 Urine Opiates Scre en Negative ng/mL (N egative) 03/22/23 03:45 Acetaminophen < 5.0 ug/mL (10-3 0) L 03/22/23 02:00 Ur Barbiturates Sc reen Negative ng/mL (N egative) 03/22/23 03:45 Ur Phencyclidine S crn Negative ng/mL (N egative) 03/22/23 03:45 Ur Amphetamines Sc reen Negative ng/mL (N egative) 03/22/23 03:45 U Benzodiazepines Scrn Negative ng/mL (N egative) 03/22/23 03:45 Urine Cocaine Scre en Negative ng/mL (N egative) 03/22/23 03:45 U Marijuana (THC) Screen Positive ng/mL (N egative) H 03/22/23 03:45 Ethyl Alcohol 119 mg/dL (0-10) H 03/22/23 02:00 Vitals: Last Vital Signs Temp 97.6 F 03/27/23 09:23 Pulse 47 L 03/27/23 09:23 Resp 15 03/27/23 09:23 BP 112/68 03/27/23 09:23 Pulse Ox 97 03/27/23 09:23 O2 Del Method Room Air 03/27/23 06:00 Discharge Plan Discharge Patient Disposition: Home Condition: Stable Prescriptions: New trazodone 50 mg Tablet 50 mg PO BEDTIME PRN (Reason: Sleep) 30 Days Qty: 30 1RF Vitamin B-1 (mononitrate) 100 mg Tablet 100 mg PO DAILY 30 Days Qty: 30 1RF Invega Sustenna 234 mg/1.5 mL syringe 234 mg IM Q30D Qty: 1.5 1RF Rx Instructions: next injection 04/22/23 then as directed. Discontinued oxcarbazepine [Trileptal] 300 mg tablet 300 mg PO BID 30 Days Qty: 60 1RF quetiapine [Seroquel] 100 mg tablet 100 mg PO BEDTIME@21 30 Days Qty: 30 1RF Discharge Orders: Discharge Order (Routine); Ordered 03/27/23 Ordered By: Timur Huntley Referrals: [facility] [Other] - 04/14/23 1:30 pm (Intake appointment) [facility]-Dr. Villasenor [Other] - 05/13/23 12:40 pm (Appointment with Psychiatrist Dr. Villasenor) Discharge Diet: Regular Discharge Activity: Resume usual activity Patient Instructions: Trazodone (By mouth) (Desyrel, Desyrel Dividose, Oleptro, Trazamine), Paliperidone (By mouth) (Invega), Depression (DC), Help Prevent Suicide (DC), Opioid Safety Discharge Attestations [facility] Time Spent in Discharge Care*: less than 30 min Specific Discharge Activities: Specific discharge activities: educating patient, discussing with case worker/social workers/dc planners, documenting/other paperwork and evaluating patient/reviewing data Coding Level of Care Code Acute Chg FW DC note Diagnoses Acute psychosis F23 Suicidal ideation R45.851 Major depressive disorder, recurrent, severe with psychotic symptoms F33.3 Cannabis use disorder, moderate, in early remission, dependence F12.21 Nicotine dependence, unspecified, uncomplicated F17.200 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
[2023-03-27 09:23] VITALS: BP 112/68; PULSE 47; RESP 15; TEMP 36.4; O2SAT 97
[2023-03-27] MEDS: nicotine 4 mg lozenge MUCOUS MEM (09:44)
== END 2023-03-27 09:50 | disposition home or self-care (01) | DRG 885 ==
LOC: ER 04:45 → NP 04:54
PROVIDERS: Admitting Provider Psychiatry & Neurology Psychiatry; Emergency Provider Physician Assistant; Visit Provider Psychiatry & Neurology Psychiatry
DX: F23 Brief psychotic disorder (principal); R45.851 Suicidal ideations; F17.290 Nicotine dependence, other tobacco product, uncomplicated; F33.3 Major depressive disorder, recurrent, severe with psychotic symptoms; F12.21 Cannabis dependence, in remission; F10.20 Alcohol dependence, uncomplicated; F60.89 Other specific personality disorders; F41.1 Generalized anxiety disorder; Z59.00 Homelessness unspecified
CPT/HCPCS: 80053; 80306; 80307; 85025; 96372; 97150; 97165; 99238; 99285; J3411

== ENCOUNTER 2023-06-01 18:39 | Inpatient (IN) | payer MEDICAID, SELFPAY ==
[2021-09-25 16:09] VITALS: BMI 39.9
[2023-06-01 18:43] VITALS: BP 151/85; PULSE 75; TEMP 36.8; O2SAT 98; BMI 33.2
--- NOTE | 2023-06-01 18:43 | ECG_ITS ---
[facility] Test Date: 2023-06-01 Pat Name: Braulio Terrazas Department: Room: Gender: Male Can Coverer: : 1995 Requested By: Man Gunderson Order Number: [id number] Terence MD: Eric Subramanian M.D. Measurements Intervals [place] Rate: 70 P: 16 ID: [id number] QRS: 68 QRSD: 102 T: 52 QT: 392 QTc: 425 Interpretive Statements SINUS RHYTHM Compared to ECG 03/15/2023 01:30:14 T-wave abnormality no longer present Electronically Signed On 06-01-2023 20:22:28 CDT by Eric Subramanian M.D. [id number]
--- NOTE | 2023-06-01 19:05 | ED.C_ITS ---
HPI - Psych General: Chief Complaint: Psychiatric Symptoms Stated Complaint: si Time Seen by Provider: 06/01/23 18:44 Source: patient and EMS Mode of arrival: EMS Limitations: no limitations History of Present Illness: 28-year-old male who has a history of schizophrenia who is well-known to ER states that over the last 2 to 3 days has been having increasing paranoia as he feels like people are out to get him he feels like there is sex traffic curse on his street he has became increasingly more paranoid he states he is having thoughts of harming others along with suicidal thoughts as well. He denies any vomiting or diarrhea. Associated symptoms: Reports depression, homicidal ideation and suicidal ideation Review of Systems Const: Denies: fever(s), chills, body aches or change in appetite Eyes: Denies: blurry vision or eye discomfort ENMT: Denies: throat pain or dental pain Card: Denies: chest pain Resp: Denies: dyspnea GI: Denies: abdominal pain, nausea, vomiting or diarrhea : Denies: dysuria Musc: Denies: neck pain or back pain Skin/Breast: Denies: rash Neuro: Denies: headache(s) Psych: Reports: depression, paranoia, suicidal ideation and homicidal ideation PFS ED PFSH: Medical History Major depressive disorder, recurrent severe without psychotic features Psychiatric care Social History Smoking and tobacco status: current every day smoker e-cigarettes E-Cigarette Details: vaporizer device and with nicotine E-cig/vape details: 5 mg/Day Quit status (tobacco): considering quitting Second hand smoke exposure: No Current gender identity: Male Physical Exam Const: COMMON NORMALS: no acute distress, patient oriented x3 and healthy appearing HENMT: COMMON NORMALS: normocephalic and atraumatic HEAD & SCALP: normocephalic and atraumatic Eye: COMMON NORMALS: Equal, round and reactive pupils present and EOMs intact bilaterally PUPIL: Yes Equal, round and reactive pupils present Neck/C-Spine: COMMON NORMALS: full ROM and supple Chest: COMMONS NORMALS: normal inspection of the chest and normal palpation of entire chest wall Resp: COMMON NORMALS: normal respiratory effort, No retractions, No use of accessory muscles and clear to auscultation bilaterally AUSCULTATION: clear to auscultation bilaterally Cardio: COMMON NORMALS: regular rate, regular rhythm and No murmurs present (Cardio) RATE: regular rate RHYTHM: regular rhythm GI: COMMON NORMALS: Normal to inspection, nondistended, normoactive bowel sounds present, Soft to palpation, non-tender and no masses PALPATION: Yes Soft to palpation Extremity: COMMON NORMALS: normal to inspection and full ROM Neuro: COMMON NORMALS: patient oriented x3, moves all extremities and no focal motor deficits Psych: COMMON NORMALS: mental status grossly normal and cooperative THOUGHT CONTENT: Yes Suicidality present, Yes Homicidality present and Yes Hallucination(s) present Skin: COMMON NORMALS: no rashes or lesions noted and no wounds GENERAL SKIN EXAM: no rashes or lesions noted Course Vital Signs: Vital signs: Vital Signs Temperature 98.3 F 06/01/23 18:43 Pulse Rate 75 06/01/23 18:43 Blood Pressure 151/85 06/01/23 18:43 Pulse Oximetry 98 06/01/23 18:43 Oxygen Delivery Me thod Room Air 06/01/23 18:43 MDM - Psych Medical Decision Making Patient presents here with schizophrenia along with suicidal and homicidal ideations he is medically cleared he is placed under 96 I spoke to psychiatrist will admit here. Medical Records I reviewed the patient's medical records. Lab Data I reviewed the patient's lab results. 06/01/23 20:21 06/01/23 20:21 Laboratory Results WBC 8.40 10^3/uL (3.29-11.43) 06/01/23 20:21 RBC 4.69 10^6/uL (3.85-5.65) 06/01/23 20:21 Hgb 13.90 g/dL (11.27-16.99) 06/01/23 20:21 Hct 41.2 % (37-53) 06/01/23 20:21 MCV 87.8 fl (82-101) 06/01/23 20:21 MCH 29.6 pg (27-33) 06/01/23 20:21 MCHC 33.7 g/dL (30-55) 06/01/23 20:21 RDW 13.2 % (12.1-15.1) 06/01/23 20:21 Plt Count 179 10^3/cmm (157-399) 06/01/23 20:21 MPV 10.6 fL (7.4-10.4) H 06/01/23 20:21 Neut % (Auto) 71.6 % 06/01/23 20:21 Lymph % (Auto) 21.3 % 06/01/23 20:21 Mckenzie % (Auto) 5.4 % 06/01/23 20:21 Eos % (Auto) 1.0 % 06/01/23 20:21 Baso % (Auto) 0.2 % 06/01/23 20:21 Neut # (Auto) 6.02 10^3/uL (1.8-7.7) 06/01/23 20:21 Lymph # (Auto) 1.8 10^3/uL (0.8-4.8) 06/01/23 20:21 Mckenzie # (Auto) 0.5 10^3/uL (0.2-0.9) 06/01/23 20:21 Eos # (Auto) 0.1 10^3/uL (0.0-0.8) 06/01/23 20:21 Baso # (Auto) 0.0 10^3/uL (0.0-0.1) 06/01/23 20:21 Nucleated RBC % (auto) 0 % 06/01/23 20:21 Nucleated RBCs # 0.0 /100WBC 06/01/23 20:21 Discharge Plan Discharge Patient Disposition: Admitted As Inpatient Clinical Impression: Suicidal ideation, Acute psychosis Condition: Stable Prescriptions: No Action trazodone 50 mg Tablet 50 mg PO BEDTIME PRN (Reason: Sleep) 30 Days Qty: 30 1RF Vitamin B-1 (mononitrate) 100 mg Tablet 100 mg PO DAILY 30 Days Qty: 30 1RF Invega Sustenna 234 mg/1.5 mL syringe 234 mg IM Q30D Qty: 1.5 1RF Rx Instructions: next injection 04/22/23 then as directed. 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
[2023-06-01] MEDS: haloperidol 5 mg Tablet PO (19:29)
[2023-06-01] MEDS: LORazepam 1 mg Tablet PO (19:30)
[2023-06-01 20:33] LABS: Basophils % 0.2 %; Eosinophils # 0.1 10^3/uL (0.0-0.8); Hematocrit 41.2 % (37-53); Lymphocytes # 1.8 10^3/uL (0.8-4.8); Lymphocytes % 21.3 %; Mean Corpuscular HGB Conc 33.7 g/dL (30-55); Mean Corpuscular Hemoglobin 29.6 pg (27-33); Mean Corpuscular Volume 87.8 fl (82-101); Mean Platelet Volume 10.6 fL (7.4-10.4); Monocytes # 0.5 10^3/uL (0.2-0.9); Monocytes % 5.4 %; Neutrophils # 6.02 10^3/uL (1.8-7.7); Neutrophils % 71.6 %; Nucleated Red Blood Cells % 0 %; Platelet Count 179 10^3/cmm (157-399); Red Blood Count 4.69 10^6/uL (3.85-5.65); Red Cell Distribution Width 13.2 % (12.1-15.1)
[2023-06-01 20:50] LABS: Amphetamines Screen Urine Negative (Negative); Barbiturates Screen Urine Negative (Negative); Benzodiazepines Screen Urine Negative (Negative); Cocaine Screen Urine Negative (Negative); Opiate Screen Urine Negative (Negative); PCP Screen Urine Negative (Negative); THC Screen Urine Positive (Negative)
[2023-06-01 20:51] LABS: Alanine Aminotransferase 24 U/L (0-41); Albumin Level 4.5 g/dL (3.5-5.2); Alkaline Phosphatase 74 U/L (40-130); Aspartate Amino Transferase 19 U/L (0-40); Blood Urea Nitrogen 11 mg/dL (6-20); Calcium 9.1 mg/dL (8.5-10.5); Carbon Dioxide 23 mmol/L (22-29); Chloride 103 mmol/L (98-107); Globulin 2.8 g/dL (1.3-4.6); Glomerular Filtration Rate 116.9 mL/min (90-130); Glucose 91 mg/dL (65-115); Osmolality Calculated 283 mOsm/kg (285-295); Sodium 137 mmol/L (136-145); Total Bilirubin 0.3 mg/dL (0.15-1.2); Total Protein 7.3 g/dL (6.6-8.7)
[2023-06-01 20:53] LABS: Acetaminophen < 5.0 ug/mL (10-30); Alcohol Level < 10 mg/dL (0-10); Salicylate < 0.3 mg/dL (3-10)
[2023-06-01 22:06] VITALS: BP 135/80; PULSE 76; RESP 18; O2SAT 97
[2023-06-01] MEDS: trazodone 50 mg Tablet PO (22:24)
--- NOTE | 2023-06-01 23:05 | PC.NURSE ---
Pt arrived to NPU w/security and RN at side, anxious and cooperative. Admission assessment completed.
[2023-06-02 00:02] LABS: SARS Covid-2 Antigen Negative (Negative)
[2023-06-02 06:00] VITALS: RESP 16
--- NOTE | 2023-06-02 08:09 | W.PM.NPUH&PS ---
Providers/Chief Complaint Admitting Physician: Timur Huntley MD Chief Complaint: si HPI NPU History of Present Illness rBaulio Terrazas is a 28 year old male with history of schizophrenia who presented to the emergency department after he had endorsed having increased paranoia while reporting that he feels that there has been a curse on his street that was associated with sex trafficking. He had reported not having thoughts of hurting others but states that he has been having more suicidal thoughts. The patient had reported that he has been homeless for several days. He had reported that he had not had his Invega shot in the past 2 months with the recent reemergence of increased depression and increased confusion as he states that he has a hard time with knowing the difference in regards to reality. He had endorsed having auditory hallucinations. Past Psychiatric History: 5 previous psychiatric [facility] 20[facility] with multiple other hospitalizations in [place] as well. ?He had reported a history of multiple medication trials. Family History: Father had depression and alcoholism, a brother could possibly be bipolar, Past Medical History: Denies current medical issues. Current Medications: Invega 234mg/IM, thiamine, Substance Use History: Inhalants: Started age 89 years old huffing gasoline, he still coughs on occasion and last used 2 years ago at age 23 which is a little late for puffers as they tend to stop in their teenage years. Alcohol: Started age [age] years old, for a few years he was drinking a 12 pack a day, now he drinks 6 or 7 beers once a week and a few beers on other nights. Marijuana: Started age [age] years old has been a consistent user periods in his life Nicotine: Currently up 3 to 5 mg a day, started smoking cigarettes when he picked him up from his mother's ashtray at age 79 years old. Other: He says he has used other pills in the past including some opiates, muscle relaxers, amphetamines but nothing consistent. Legal history: None reported history: None Social History: He denies ever being or ever having kids.? He did graduate high school in [place], he is currently homeless and reports having limited contact with his family. He had reported the use of illicit substances as an adolescent including huffing. He had denied any history of childhood trauma. He currently is unemployed and was living in [facility]. Discharge Summary from 03/27/2023 NPU SI, ETOH on board? Brief History: Braulio Terrazas is a 28 year old male who presented to the emergency department with the following report: Chief Complaint: Psychiatric Symptoms Stated Complaint: SI, ETOH on board Time Seen by Provider: 03/22/23 03:06 Source: patient Mode of arrival: EMS Limitations: no limitations History of Present Illness:?? Patient is a 28-year-old male who presents to ED today via EMS for evaluation and treatment of suicidal ideations.? Patient tells me over the last 2 days he had been hanging with some friends when they abandoned him making him feel suicidal.? He has reportedly been drinking today.? He reports a recent hospitalization at [facility] for suicidal ideations.? He was recently released a few days ago.? Patient has been seen at our facility multiple times for psychiatric complaints.? Patient states he has a plan to jump out in front of traffic.? Denies homicidal ideations. ? MD complaint: suicidal ideation and feels depressed Onset (ago): day(s) Duration: constant History of same: Yes Relieving factors: none Exacerbating factors: none Associated psychiatric symptoms: depression and suicidal ideation Associated symptoms: Reports depression and suicidal ideation If self harm: admits thoughts of self harm He was admitted to the neuropsychiatric unit for definitive treatment of those issues.? He presents today, well-known to this typewriter repairer from previous inpatient hospitalizations.? This is his fourth hospitalization at [facility] neuropsychiatric unit since December 06, 2022.? In that time he is also been at [facility] in [place] at least 1 time.? Prior to that he had not been hospitalized since September 2021.? He presents today reporting a fairly hard to follow story with major concerns of whether it is real or delusional or made up.? He reports that he is in some friends were walking around with their shoes off.? That occasionally they would jog around.? Eventually reports at 1 point they started running and he could not keep up and they just kept running and left him.? He reports that he thought they were joking and would definitely return but they did not.? He reports that once they did not return so he really feeling bad about himself and questioning why they would do that.? He started feeling bad and left behind in having negative thoughts about himself.? He reports that he has been taking his medication which included Vistaril and Seroquel.? However he does endorse that he was hospitalized at [facility] not too long ago and while there they did not continue his Invega.? However being on the injection it is unclear whether he was there during a time that he should have administer the injection.? He reports that he ended up at [facility] because after discharging to [facility] from here back in February he started having problems with somebody living at [facility] as well.? He reports that with a mau that was being creepy. ? He reports that [facility] wanted him to leave because they took offense to his thoughts about this mau being creepy.? He reports that [facility] did not want him to return.? We discussed him possibly needing greater outpatient support.? We also discussed evaluating when he had his last Invega injection and considering restarting the Invega Sustenna injection and working on further residential stability and he understood and agreed to proceed as is documented in this note.? An excerpt of his last hospitalization February 2023 is included below for context given lack of substantive changes since then and his psychosocial reality as well as other history. Per his 02/18/2023 [facility] inpatient psychiatric discharge summary: Discharge Diagnosis (1) Acute psychosis: ? ? ? Status: Acute (2) Suicidal ideation: ? ? ? Status: Resolved (3) Major depressive disorder, recurrent, severe with psychotic symptoms: ? ? ? Status: Acute (4) Cannabis use disorder, moderate, in early remission, dependence: ? ? ? Status: Acute (5) Nicotine dependence, unspecified, uncomplicated: ? ? ? 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 ? ? Status: Acute (7) Generalized anxiety disorder: ? ? ? Status: Acute Reason for Visit Reason for Visit:?? SI? Brief History: History of Present Illness Braulio Terrzaas is a 28 year old male recently discharged on 02/06/2023 from the neuropsychiatric unit directly to the [facility] inpatient treatment facility.? Patient has a history of psychotic disorder not otherwise specified and major depressive disorder along with polysubstance abuse.? He had reported that over the past 4 to 5 days while staying at [facility] he had felt that everyone was red in the face in that place .? He reports that he had felt that he was being held in a facility with a bunch of pedophiles .? He had endorsed that he had been having recurrent auditory hallucinations that have been getting worse.? He had reported that he has been sober without any alcohol or marijuana for several months.? He states that he had left the inpatient facility at [facility] and began walking outside and stated that he had wanted to walk in front of traffic with the intent to kill himself.? Patient reports that the police had arrived and had taken him to the emergency department for further evaluation.? He was admitted to the neuropsychiatric unit for further evaluation and treatment.? Per records, the laboratory tech had indicated that the patient had made a threat to shoot them although he reported that he had no such thoughts of wanting to harm another person.? Previous documents indicate that the patient has received his Invega Sustenna intramuscular on February at the [facility] inpatient unit.? He reports that he has been feeling more depressed and endorses suicidal thoughts along with repeated hallucinations that are distracting for him.? He reports no substantial changes in his medication regimen or his history compared to his previous admission less than 10 days ago. That that is what I thought so he needs he needs a higher dose of that so I will not have to add a little bit of something to this much appreciated yet by Excerpt from 02/06/23 discharge summary at Neuropsychiatric unit. Brief History: History of Present Illness Braulio Terrazas is a 27 year old male to the emergency department with the following report: Chief Complaint: Psychiatric Symptoms Stated Complaint: SI Time Seen by Provider: 02/03/23 09:44 Source: patient Mode of arrival: ambulatory Limitations: no limitations History of Present Illness:?? Patient is a 27-year-old male who presents to ED today for evaluation of suicidal ideations.? Patient states he has felt suicidal for several days now.? He states he has a plan to run out in front of traffic.? Patient reportedly is at [facility] rehabilitation from alcohol abuse and he states many of the residents are causing him to feel suicidal.? He states it is a high stress/high emotion environment and he does not seem to be coping well.? He does report previous suicide attempts.? Patient states he was released from NPU approximately a month and a half ago.? He has been taking all of his psychiatric medications as prescribed. Reports hallucinations but states he has schizophrenia so these are chronic. ? MD complaint: suicidal ideation and feels depressed Onset (ago): day(s) Duration: constant History of same: Yes Context: significant life stressor Associated psychiatric symptoms: depression and suicidal ideation Associated symptoms: Reports auditory hallucinations, visual hallucinations, depression and suicidal ideation; Deny homicidal ideation Treatments prior to arrival: none If self harm: admits thoughts of self harm He was admitted to the neuropsychiatric unit for definitive treatment of those issues.? He presents today reporting that he is just feeling depressed.? He was just discharged from here 12/29/2022 and an excerpt of that discharge is included below for context and the fact that after he left here he went directly to [facility] and is now coming back from [facility].? He reports that he is near completion of the program and they are looking for options for him.? He acknowledged that probably some of the sadness of feeling overwhelmed has to do with the fact that he is homeless and they have not found a viable option for him at this point though they are fully prepared to receive him back at discharge from here.? We discussed the fact that his Prozac is only a 20 mg which is a fairly low-dose and discussed the risks, benefits and alternatives of increasing that to 40 mg and he understood and agreed to proceed as is documented in this note.? We discussed this hopefully being a short stay was an increase in his antidepressant and collaboration with [facility] for him to return when he is able to contract for safety. Per his 12/29/2022 [facility] inpatient psychiatric discharge summary: Discharge Diagnosis (1) Suicidal ideation: ? ? ? Status: Resolved (2) Major depressive disorder, recurrent, severe with psychotic symptoms: ? ? ? Status: Acute (3) Cannabis use disorder, moderate, in early remission, dependence: ? ? ? Status: Acute (4) Nicotine dependence, unspecified, uncomplicated: ? ? ? 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 ? ? Status: Acute (6) Generalized anxiety disorder: ? ? ? Status: Acute Reason for Visit Reason for Visit:?? SI? Brief History: Braulio Terrazas is a 27 year old male who was recently discharged from the neuropsychiatric unit on 12/11/2022 with a history of psychotic disorder and otherwise specified who was brought into the emergency department after he had reported that for the past 4 to 5 days he had had an increase in the presence of auditory and visual hallucinations.? He stated that he had been feeling paranoid about things disappearing from his phone.? He had reported that he was having some suicidal thoughts at this time.? He reported that he had had problems with concentration and states that he had not been sleeping well.? He had reported having a history of psychotic symptoms for for several years and stated that he had previously used inhalants and had huffed gasoline at a young age.? He had also endorsed an extended history of substance use stating that he had been drinking at a young age.? He reports that he had been scheduled to receive his second dose of Invega Sustenna on 12/17/2022 but he had missed his appointment and had been without his medication to target his psychosis.? The patient reported no substantial changes since his last hospitalization Per Previous Discharge on 12/05/22 HPI: Braulio Terrazas is a 27 year old male who presented to the emergency department with the following report: Chief Complaint: Psychiatric Symptoms Stated Complaint: SI Time Seen by Provider: 12/05/22 05:13 Source: patient Mode of arrival: ambulatory Limitations: no limitations History of Present Illness:?? 27-year-old male has history of schizophrenia along with depression and bipolar disorder he states that over the last few days he been having increased hallucinations along with suicidal ideations he states he has not been taking his meds he supposed be on risperidone he has not been taking them.? He denies any worsening improving factors at this time. Associated symptoms: Reports depression He was admitted to the neuropsychiatric unit for definitive treatment of those issues.? He presents fairly focused on his somewhat hyper evangelical, conspiratorial delusions making it hard for him to stay on task and normal question and answering situations.? What we were able to glean from the conversation is that he has been hospitalized recently in another hospital in the past 2 to 4 weeks but that he currently has no medications and has not been taking medication.? He is reportedly homeless now and has not been able to really meet his needs because he is stuck in a shed possibly on his family's property or having no place to stay but certainly without stability that would allow him to get his mental health issues back on track.? In excerpt of his past hospitalization in 2020 is included below for context.? His drug screen was only positive for cannabis.? We discussed the risk benefits and alternatives of reviewing his medications and restarting some of the medications at appropriate initiation doses and he understood and agreed to proceed as it is documented in this note. Meds NPU Home Medications Medication Instructions Recorded Confirmed Last Taken Type paliperidone palmitate 234 mg/1.5 234 mg (1.5 mL) IM Q30D #1.5 mL 03/27/23 06/01/23 Unknown Rx mL intramuscular syringe (Invega Sustenna) thiamine mononitrate (vit B1) 100 100 mg PO DAILY 30 days #30 tabs 03/27/23 06/01/23 Unknown Rx mg tablet (Vitamin B-1 (mononitrate)) trazodone 50 mg tablet 50 mg PO BEDTIME PRN Sleep 30 days 03/27/23 06/01/23 Unknown Rx #30 tabs Allergies Allergy/AdvReac Type Severity Reaction Status Date / Time No Known Allergies Allergy Verified 06/01/23 18:53 PFSH NPU PFSH: Medical History Major depressive disorder, recurrent severe without psychotic features Psychiatric care Social History Smoking and tobacco status: current every day smoker e-cigarettes E-Cigarette Details: vaporizer device and with nicotine E-cig/vape details: 5 mg/Day Quit status (tobacco): considering quitting Second hand smoke exposure: No Current gender identity: Male Mental Status Exam MSE Comments: This is an obese white male in hospital scrubs with poor grooming and fleeting eye contact. No abnormal movements except for prominent psychomotor retardation. He was a poor historian as he appeared in and out of consciousness while lying in bed. He was difficult to arouse. Speech was decreased in rate and productivity and diminished in volume. There was evidence of speech latency increase. Mood described as down. His affect was restricted in range and mood-congruent. Thought process was linear but superficial. Thought content: Patient endorsed suicidal ideation with plan to jump in front of truck. He denied any homicidal ideation. He did not appear to be responding to internal stimuli but there was clear evidence of bizarre delusional thinking. His recent and remote memory were grossly intact although not formally tested. He is alert and oriented x3. Insight, judgment and impulse control are limited. Vitals/I&O/Wt Last Vital Signs Temp 98.3 F 06/01/23 18:43 Pulse 76 06/01/23 22:06 Resp 16 06/02/23 06:00 BP 135/80 06/01/23 22:06 Pulse Ox 97 06/01/23 22:06 O2 Del Method Room Air 06/01/23 22:43 Weight last 48 hrs Weight 127.006 kg Data NPU 06/01/23 20:21 06/01/23 20:21 A&P Assessment and plan (1) Suicidal ideation: (2) Schizophrenia: Plan 1. Encourage individual, group and milieu therapy. 2.Recommend sober living treatment at the highest level of care to which the patient is willing to commit. 3.Continue q-15 minute checks for safety.? 4. Give Invega IM 234mg x1. 5. Will attempt to gather collateral information. Involuntary Hold Information 96 Hour Hold: 96 Hour Involuntary Admission: Yes 96 Hour Hold Ending Date: 06/05/23 96 Hour Hold Ending Time: 20:37 Attestations NPU Medical Necessity Statement*: Inpatient hospitalization is medically necessary and the clinically appropriate intervention at this time. We will monitor and make medication changes as indicated.?Patient will be here for at least 2 midnights. Likely length of stay 3-5 days. Coding Level of Care Code Acute Code for Chg Fwd Diagnoses Suicidal ideation R45.851 Schizophrenia F20.9
[2023-06-02] MEDS: thiamine 100 mg Tablet PO (09:05)
[2023-06-02] MEDS: paliperidone palmitate 234 mg Syringe IM (10:30)
[2023-06-02 14:00] VITALS: BP 122/76; PULSE 62; RESP 16; O2SAT 96
[2023-06-02] MEDS: trazodone 50 mg Tablet PO (20:01)
[2023-06-02 22:00] VITALS: RESP 18
[2023-06-03 06:00] VITALS: RESP 16
[2023-06-03] MEDS: thiamine 100 mg Tablet PO (09:17)
[2023-06-03] MEDS: nicotine 4 mg lozenge MUCOUS MEM ×6 (10:21→22:15)
[2023-06-03] MEDS: paliperidone ER 3 mg Tablet PO (10:21)
[2023-06-03 14:00] VITALS: BP 138/81; PULSE 74; RESP 16; TEMP 36.9; O2SAT 99
--- NOTE | 2023-06-03 14:20 | W.PM.NPUPNS ---
Subjective NPU Subjective: Patient is a 28-year-old male with schizophrenia currently homeless who had reported noncompliance with his outpatient visits including having missed his last 2 months of Invega Sustenna. He continued to isolate himself on the milieu and had needed considerable prompting for managing activities of daily living. He had reported continued suicidal thoughts. He denied any homicidal thoughts. He had reported some sleep continuity disruption. He stated that he felt no different currently on his medication regimen. He had continued to share having certainty that there was an underlying sex ring that others in his previous stay were involved with at this time. He had reported problems with concentration. Mental Status Exam MSE Comments: This is an obese white male in hospital scrubs with poor grooming and fleeting eye contact. No abnormal movements except for prominent psychomotor retardation. He was a poor historian as he was lethargic and difficult to arouse. Speech was decreased in rate and productivity and diminished in volume. There was continued evidence of increased speech latency. Mood described as depressed.. His affect was restricted in range and mood-congruent. Thought process was linear but superficial. Thought content: Patient continued to endorse suicidal ideation. He denied any homicidal ideation. He did not appear to be responding to internal stimuli but there was clear evidence of bizarre delusional thinking. His recent and remote memory were grossly intact although not formally tested. He is alert and oriented x3. Insight, judgment and impulse control are all limited. Vitals/I&O/Wt Last Vital Signs Temp 98.3 F 06/01/23 18:43 Pulse 62 06/02/23 14:00 Resp 16 06/03/23 06:00 BP 122/76 06/02/23 14:00 Pulse Ox 96 06/02/23 14:00 O2 Del Method Room Air 06/02/23 14:00 Weight last 48 hrs Weight 127.006 kg Data NPU 06/01/23 20:21 06/01/23 20:21 A&P Assessment and plan (1) Suicidal ideation: (2) Schizophrenia: Plan 1. Encourage individual, group and milieu therapy. 2.Recommend sober living treatment at the highest level of care to which the patient is willing to commit. 3.Continue q-15 minute checks for safety.? 4. Add oral invega 3mg daily as it has been nearly 2 months slnce last IM invega. Next IM invega 156 mg due in 5-6 days. 5. Will attempt to gather collateral information. Involuntary Hold Information 96 Hour Hold: 96 Hour Involuntary Admission: Yes 96 Hour Hold Ending Date: 06/05/23 96 Hour Hold Ending Time: 20:37 Attestations NPU Medical Necessity Statement*: Inpatient hospitalization is medically necessary and the clinically appropriate intervention at this time. We will monitor and make medication changes as indicated.?The patient's likely length of stay is 4-7 days. Coding Level of Care Code Acute Code for g Fwd Diagnoses Suicidal ideation R45.851 Schizophrenia F20.9
[2023-06-03] MEDS: hyDROXYzine 25 mg Capsule 50 MG PO (15:10)
[2023-06-03 20:01] VITALS: BP 127/79; PULSE 112; RESP 20; TEMP 37; O2SAT 96
[2023-06-04] MEDS: nicotine 4 mg lozenge MUCOUS MEM ×3 (01:08→20:16)
[2023-06-04 06:00] VITALS: BP 100/55; PULSE 55; RESP 16; O2SAT 97
[2023-06-04] MEDS: paliperidone ER 3 mg Tablet PO (09:59)
[2023-06-04] MEDS: thiamine 100 mg Tablet PO (09:59)
[2023-06-04 14:00] VITALS: BP 122/73; PULSE 68; RESP 16; TEMP 36.9; O2SAT 96
--- NOTE | 2023-06-04 15:50 | P.NPUPN_ITS ---
Subjective NPU Subjective: Patient is a 28-year-old male with schizophrenia currently homeless who had reported noncompliance with his outpatient visits including having missed his last 2 months of Invega Sustenna. He continued to endorse depressed mood. He had continued to report low motivation and paranoia. He had reported that the voices had stopped. He had been lying in his bed and had minimal interaction with others although he had briefly attended group. He reported continued feelings of hopelessness. He had been compliant with his medication and had reported success when taking his Invega intramuscularly monthly. Patient had required significant prompting for completion of activities of daily living. Mental Status Exam MSE Comments: This is an obese white male in hospital scrubs with poor grooming and fleeting eye contact. The area around his room was malodorous. No abnormal movements except for prominent psychomotor retardation. He continued to be lethargic and difficult to arouse at times. His speech was decreased in rate and productivity and diminished in volume. There was continued evidence of increased speech latency. Mood described as depressed..His affect was restricted in range and mood-congruent. Thought process was linear but superficial. Thought content: Patient continued to endorse suicidal ideation via overdose. He denied any homicidal ideation. He did not appear to be responding to internal stimuli and clear evidence of paranoia. This his recent and remote memory were grossly intact although not formally tested. He is alert and oriented x3. Insight, judgment and impulse control are all impaired.. Vitals/I&O/Wt Last Vital Signs Temp 98.5 F 06/04/23 14:00 Pulse 68 06/04/23 14:00 Resp 16 06/04/23 14:00 BP 122/73 06/04/23 14:00 Pulse Ox 96 06/04/23 14:00 O2 Del Method Room Air 06/04/23 14:00 Data NPU 06/01/23 20:21 06/01/23 20:21 A&P Assessment and plan (1) Suicidal ideation: (2) Schizophrenia: Plan 1. Encourage individual, group and milieu therapy. 2.Recommend sober living treatment at the highest level of care to which the patient is willing to commit. 3.Continue q-15 minute checks for safety.? 4. Increase oral Invega to 6 mg daily as it has been nearly 2 months slnce last IM invega. Next IM invega 156 mg due in 5-6 days. 5. Will attempt to gather collateral information. Involuntary Hold Information 96 Hour Hold: 96 Hour Involuntary Admission: Yes 96 Hour Hold Ending Date: 06/05/23 96 Hour Hold Ending Time: 20:37 Attestations NPU Medical Necessity Statement*: Inpatient hospitalization is medically necessary and the clinically appropriate intervention at this time. We will monitor and make medication changes as indicated.?The patient's likely length of stay is 6-8 days. Coding Level of Care Code Acute Code for [facility] Fwd Diagnoses Suicidal ideation R45.851 Schizophrenia F20.9
[2023-06-04] MEDS: trazodone 50 mg Tablet PO (20:16)
[2023-06-04 20:28] VITALS: BP 109/58; PULSE 105; RESP 16; TEMP 36.7; O2SAT 96
[2023-06-05 06:00] VITALS: BP 150/90; PULSE 74; RESP 20; TEMP 36.8; O2SAT 98
[2023-06-05] MEDS: thiamine 100 mg Tablet PO (08:13)
[2023-06-05] MEDS: paliperidone ER 6 mg Tablet PO (08:13)
[2023-06-05 14:00] VITALS: BP 108/66; PULSE 56; RESP 18; TEMP 36.6; O2SAT 97
--- NOTE | 2023-06-05 14:06 | PC.NURSE ---
During morning assessment, patient stated that he feels real down . Patient stated that he does want to kill himself and he stated to this nurse that he would kill himself by getting a gun and shooting himself.
--- NOTE | 2023-06-05 14:08 | PC.NURSE ---
Patient signed hospital consent at 1404.
[2023-06-05] MEDS: nicotine 4 mg lozenge MUCOUS MEM ×3 (14:52→19:14)
[2023-06-05] MEDS: hyDROXYzine 25 mg Capsule 50 MG PO ×2 (15:40→20:21)
--- NOTE | 2023-06-05 15:41 | PC.NURSE ---
Patient reporting anxiety 06/14. This nurse given patient vistaril 50mg PO
--- NOTE | 2023-06-05 17:00 | P.NPUPN_ITS ---
Subjective NPU Subjective: Patient is a 28-year-old male with schizophrenia currently homeless who had reported noncompliance with his outpatient visits including having missed his last 2 months of Invega Sustenna. The patient had provided great details regarding his distrust of his family members. He had reported that he had felt that the family members had attempted to minimize many of his concerns regarding his computer being hacked and his music being stolen. He had felt that in someway by them minimizing this that it had indicated to them that they were trying to appease him and were involved in the plot itself to steal his music. The patient had reported occasional suicidal thoughts and stated that he had still felt hopeless about his future. He had been more outgoing today and had been attending groups while engaging with other peers in a positive manner. Mental Status Exam MSE Comments: This is an obese white male in hospital scrubs with poor grooming and fleeting eye contact. He was seen outside of his room this morning conversing with his peers in a manner that had been unseen before. No abnormal movements appreciated today other than mild psychomotor retardation. He was alert and catherine ented to person place and time today. His speech was more productive in rate and normal in volume. There was no speech latency today. Mood was described as depressed. His affect was blunted today. Thought process was linear but superficial. Thought content: Patient continued to endorse suicidal ideation with no active plan. He denied any homicidal ideation. He did not appear to be responding to internal stimuli and clear evidence of paranoia and a complex delusional system. His recent and remote memory were grossly intact although not formally tested. He is alert and oriented x3. Insight, judgment and impulse control are all impaired.. Vitals/I&O/Wt Last Vital Signs Temp 98 F 06/05/23 14:00 Pulse 56 L 06/05/23 14:00 Resp 18 06/05/23 14:00 BP 108/66 06/05/23 14:00 Pulse Ox 97 06/05/23 14:00 O2 Del Method Room Air 06/04/23 20:28 Data NPU 06/01/23 20:21 06/01/23 20:21 A&P Assessment and plan (1) Suicidal ideation: (2) Schizophrenia: Plan 1. Encourage individual, group and milieu therapy. 2.Recommend sober living treatment at the highest level of care to which the patient is willing to commit. 3.Continue q-15 minute checks for safety.? 4. Continue oral Invega at 6 mg daily as it has been nearly 2 months slnce last IM invega. Next IM invega 156 mg due in 3-4 days. 5. Will attempt to gather collateral information. Involuntary Hold Information 96 Hour Hold: 96 Hour Involuntary Admission: Yes 96 Hour Hold Ending Date: 06/05/23 96 Hour Hold Ending Time: 20:37 Attestations NPU Medical Necessity Statement*: Inpatient hospitalization is medically necessary and the clinically appropriate intervention at this time. We will monitor and make medication changes as indicated.?The patient's likely length of stay is 6-8 days. Coding Level of Care Code Acute Code for [facility] Fwd Diagnoses Suicidal ideation R45.851 Schizophrenia F20.9
[2023-06-05 19:55] VITALS: BP 120/74; PULSE 103; RESP 18; TEMP 36.7; O2SAT 96
[2023-06-05] MEDS: trazodone 50 mg Tablet PO (20:21)
--- NOTE | 2023-06-05 21:04 | PC.NURSE ---
Addendum entered and electronically signed by Marilyn Ramirez RN 06/06/23 05:56: MEDICATIONS GIVEN TRAZODONE AND VISTARIL WERE EFFECTIVE. PT HAS SLEPT APPROXIMATELY 8 HOURS TONIGHT. Original Note: PT IN DAY ROOM PLAYING CHECKERS WITH PEERS. DENIES PAIN. DENIES HI AND AVH. REPORTS HE HAD SUICIDAL THOUGHTS THIS AM BUT HAS NOT HAD ANY TONIGHT. REQUEST TO HAVE MEDICATIONS FOR ANXIETY AND SLEEP. PT WAS GIVEN TRAZODONE 50 MG FOR INSOMNIA AND VISTARIL 50 MG FOR ANXIETY. SUPPORT VOICED.
[2023-06-06 06:00] VITALS: BP 114/82; PULSE 52; RESP 16; O2SAT 92
[2023-06-06] MEDS: paliperidone ER 6 mg Tablet PO (09:48)
[2023-06-06] MEDS: thiamine 100 mg Tablet PO (09:48)
--- NOTE | 2023-06-06 10:18 | PC.NURSE ---
PT CURRENTLY ENDORSES SI STATING I JUST WANT TO GET A GUN AND BLOW MY BRAINS OUT. PT STATES THAT HE DOES CANNOT HARM HIMSELF IN HERE. PT STATES THAT HE IS FEELING HOPELESS AND DEPRESSED. PT CURRENTLY DENIES HI/AH/VH. PT WAS WILLING AND COOPERATIVE WITH MEDICATIONS AND ASSESSMENT. PT CURRENT NEEDS ARE MET AT THIS TIME.
[2023-06-06 14:00] VITALS: BP 102/58; PULSE 51; RESP 15; TEMP 36.6; O2SAT 97
[2023-06-06] MEDS: nicotine 4 mg lozenge MUCOUS MEM ×3 (14:40→21:07)
--- NOTE | 2023-06-06 15:20 | W.PM.NPUPNS ---
Subjective NPU Subjective: Patient is a 28-year-old male with schizophrenia currently homeless who had reported noncompliance with his outpatient visits including having missed his last 2 months of Invega Sustenna. He continued to report suspiciousness about his family regarding his music that he states was stolen. He had reported continued suicidal thoughts. He had reported that his voices had diminished. He had isolated himself in his room and reported some difficulties with feeling tired. Patient had required significant prompting to attend to activities of daily living as he appeared to show a lack of overall self-care. He had reported depression and feelings of hopelessness. Mental Status Exam MSE Comments: This is an obese white male in hospital scrubs with poor grooming and fleeting eye contact. He was isolated if in his room. His hygiene was poor. His mood was described as depressed. His affect was restricted in range and mood congruent. There was evidence of psychomotor retardation. He was alert and oriented to person place and time. His speech was less productive today with decrease in volume. Thought process was linear but superficial. Thought content: Patient continued to endorse suicidal ideation with no active plan. He denied any homicidal ideation. There was clear evidence of paranoid delusions. His recent and remote memory were grossly intact although not formally tested. Insight, judgment and impulse control are all impaired.. Vitals/I&O/Wt Last Vital Signs Temp 97.8 F 06/06/23 14:00 Pulse 51 L 06/06/23 14:00 Resp 15 06/06/23 14:00 BP 102/58 06/06/23 14:00 Pulse Ox 97 06/06/23 14:00 O2 Del Method Room Air 06/06/23 06:00 Data NPU 06/01/23 20:21 06/01/23 20:21 A&P Assessment and plan (1) Suicidal ideation: (2) Schizophrenia: Plan 1. Encourage individual, group and milieu therapy. 2.Recommend sober living treatment at the highest level of care to which the patient is willing to commit. 3.Continue q-15 minute checks for safety.? 4. Continue oral Invega at 6 mg daily as it has been nearly 2 months slnce last IM invega. Next IM invega 156 mg due in 3 days. 5. Will attempt to gather collateral information. Involuntary Hold Information 96 Hour Hold: 96 Hour Involuntary Admission: Yes 96 Hour Hold Ending Date: 06/05/23 96 Hour Hold Ending Time: 20:37 Attestations NPU Medical Necessity Statement*: Inpatient hospitalization is medically necessary and the clinically appropriate intervention at this time. We will monitor and make medication changes as indicated.?The patient's likely length of stay is 6-8 days. Coding Level of Care Code Acute Code for [facility] Fwd Diagnoses Suicidal ideation R45.851 Schizophrenia F20.9
[2023-06-06] MEDS: hyDROXYzine 25 mg Capsule 50 MG PO (19:58)
[2023-06-06] MEDS: trazodone 50 mg Tablet PO (21:07)
--- NOTE | 2023-06-06 21:15 | PC.NURSE ---
IN ROOM RESTING, AROUSES TO VOICE. PT DENIES PAIN. DENIES SI/HI AND AVH AT THIS TIME. PT STATES HE IS FEELING BETTER AND IS NOT HAVING SUICIDAL THOUGHTS TODAY. PT REQUEST MEDICATION FOR ANXIETY AND TO HELP HIM SLEEP. PT WAS GIVEN VISTARIL 50 MG FOR ANXIETY AND TRAZODONE 50 MG FOR SLEEP. SUPPORT VOICED.
[2023-06-06 21:57] VITALS: BP 124/70; PULSE 99; RESP 18; TEMP 36.3; O2SAT 95
--- NOTE | 2023-06-06 22:37 | PC.NURSE ---
VISTARIL GIVEN PREVIOUSLY IS DEEMED EFFECTIVE AT THIS TIME. PT APPEARS TO BE CALMER AND CONVERSING WITH STAFF AND PEERS.
[2023-06-07 06:00] VITALS: BP 115/72; PULSE 86; RESP 16; O2SAT 97
[2023-06-07] MEDS: paliperidone ER 6 mg Tablet PO (08:39)
[2023-06-07] MEDS: thiamine 100 mg Tablet PO (08:39)
[2023-06-07] MEDS: nicotine 4 mg lozenge MUCOUS MEM ×5 (08:39→20:08)
--- NOTE | 2023-06-07 08:56 | PC.NURSE ---
During morning assessment, patient stated that he felt anxious and depressed. Patient denied SI, HI, and AVH. This nurse asked him about how he had suicidal thoughts the day before. Patient said that his parents are controlling. He stated that he is trying to balance between trying to be respectful to his parents and trying to have a life of his own. This nurse informed patient that he can talk to staff at anytime and that he doesn't need to be down in the dumps by himself.
[2023-06-07 12:44] VITALS: BP 152/80; PULSE 94; RESP 17; TEMP 36.9; O2SAT 96
--- NOTE | 2023-06-07 14:16 | P.NPUPN_ITS ---
Subjective NPU Subjective: Patient is a 28-year-old male with schizophrenia currently homeless who had reported noncompliance with his outpatient visits including having missed his last 2 months of Invega Sustenna. The patient had reported that he was feeling better. He had reported that the voices had been quieter. He had continued to describe concern regarding his family members and appeared suspicious regarding their intention. He had reported having suicidal thoughts but stated that it had been less frequent. He had stated that he felt ready to return outside of here and begin his life. Mental Status Exam MSE Comments: This is an obese white male in hospital scrubs with poor grooming and fleeting eye contact. He was seen out in the day room socializing with others. His hygiene was improved. His mood was described as better. His affect was restricted in range and mood incongruent. There was evidence of psychomotor retardation. He was alert and oriented to person place and time. His speech was more productive today with normal volume and increased spontaneous speech. Thought process was linear and logical. Thought content: Patient continued to endorse suicidal ideation with no active plan. He denied any homicidal ideation. There was some element of paranoia still but no overt delusions. His recent and remote memory were grossly intact although not formally tested. Insight was improving. Her judgment was poor and her impulse control is improving. Vitals/I&O/Wt Last Vital Signs Temp 98.5 F 06/07/23 12:44 Pulse 94 06/07/23 12:44 Resp 17 06/07/23 12:44 BP 152/80 06/07/23 12:44 Pulse Ox 96 06/07/23 12:44 O2 Del Method Room Air 06/07/23 12:44 Weight last 48 hrs Weight 129.954 kg Data NPU 06/01/23 20:21 06/01/23 20:21 A&P Assessment and plan (1) Suicidal ideation: (2) Schizophrenia: Plan 1. Encourage individual, group and milieu therapy. 2.Recommend sober living treatment at the highest level of care to which the pat ient is willing to commit. 3.Continue q-15 minute checks for safety.? 4. Continue oral Invega at 6 mg daily as it has been nearly 2 months slnce last IM invega. Next IM invega 156 mg due in 2 days. 5. Will attempt to gather collateral information. Involuntary Hold Information 96 Hour Hold: 96 Hour Involuntary Admission: Yes 96 Hour Hold Ending Date: 06/05/23 96 Hour Hold Ending Time: 20:37 Attestations NPU Medical Necessity Statement*: Inpatient hospitalization is medically necessary and the clinically appropriate intervention at this time. We will monitor and make medication changes as indicated.?The patient's likely length of stay is 6-8 days. Coding Level of Care Code Acute Code for [facility] Fwd Diagnoses Suicidal ideation R45.851 Schizophrenia F20.9
[2023-06-07 20:07] VITALS: BP 131/83; PULSE 82; RESP 16; TEMP 36.8; O2SAT 97
[2023-06-07] MEDS: acetaminophen 325 mg Tablet 650 MG PO (20:08)
[2023-06-07] MEDS: hyDROXYzine 25 mg Capsule 50 MG PO (20:09)
--- NOTE | 2023-06-07 20:29 | PC.NURSE ---
AT NURSES STATION ASSESSMENT COMPLETED. DENIES SI/HI AND AVH AT THIS TIME. REPORTS TOOTH PAIN 8/10 TYLENOL 650 MG GIVEN ORDERED. PT REPORTS INCREASED ANXIETY. VISTARIL 50 MG GIVEN ORDERED FOR ANXIETY. PT STATES HE IS FEELING BETTER AND IS READY TO DISCHARGE. PT ALSO REQUESTS TRAZODONE FOR SLEEP ONCE HE IS READY FOR BED. PT INSTRUCTED TO COME AND GET HIS MEDICATIONS WHEN HE IS READY. SUPPORT VOICED
--- NOTE | 2023-06-07 21:24 | PC.NURSE ---
PT REQUEST MEDICATION FOR ANXIETY. PT WAS GIVEN VISTARIL 50 MG ORDERED FOR ANXIETY. PT REQUEST TRAZODONE FOR SLEEP BUT WISHES TO WAIT UNTIL CLOSER TO BED TIME.
[2023-06-07] MEDS: trazodone 50 mg Tablet PO (22:03)
--- NOTE | 2023-06-07 22:04 | PC.NURSE ---
PT GIVEN TRAZODONE 50 MG ORDERED FOR SLEEP.
[2023-06-08 06:00] VITALS: RESP 15
[2023-06-08] MEDS: thiamine 100 mg Tablet PO (08:07)
[2023-06-08] MEDS: paliperidone ER 6 mg Tablet PO (08:07)
[2023-06-08] MEDS: nicotine 4 mg lozenge MUCOUS MEM ×4 (12:33→20:37)
[2023-06-08 13:11] VITALS: BP 119/72; PULSE 100; RESP 17; O2SAT 97
--- NOTE | 2023-06-08 15:15 | P.NPUPN_ITS ---
Subjective NPU Subjective: Patient is a 28-year-old male with schizophrenia currently homeless who had reported noncompliance with his outpatient visits including having missed his last 2 months of Invega Sustenna. The patient had reported being less preoccupied by his worries. He had continued to endorse some difficulties with getting along with his family as he had reported distrust with his family as he states they had minimized what was important to him and reported feeling that they were somehow in not a plot to have his music taken away from him. He had endorsed having less frequent thoughts of suicide. He was agreeable to residing in [facility]. He had been more social on the milieu. He reported feeling less tired this time. He had denied having as many thoughts about suicide. Mental Status Exam MSE Comments: This is an obese white male in hospital scrubs with poor grooming and fleeting eye contact. He was seen out in the day room socializing with others. His hygiene was improved. His mood was described as okay. His affect was restricted in range and mood incongruent. There was evidence of mild psychomotor retardation. He was alert and oriented to person place and time. His speech was more productive today with normal volume and increased spontaneous speech. Thought process was linear and logical. Thought content: Patient reported fleeting suicidal thoughts. He denied any homicidal ideation. There was evidence of paranoid process. His recent and remote memory were grossly intact although not formally tested. Insight was improving. Her judgment was poor and hisimpulse control is improving. Vitals/I&O/Wt Last Vital Signs Temp 98.2 F 06/07/23 20:07 Pulse 100 06/08/23 13:11 Resp 17 06/08/23 13:11 BP 119/72 06/08/23 13:11 Pulse Ox 97 06/08/23 13:11 O2 Del Method Room Air 06/07/23 20:07 Weight last 48 hrs Weight 129.954 kg Data NPU 06/01/23 20:21 06/01/23 20:21 A&P Assessment and plan (1) Suicidal ideation: (2) Schizophrenia: Plan 1. Encourage individual, group and milieu therapy. 2.Recommend sober living treatment at the highest level of care to which the patient is willing to commit. 3.Continue q-15 minute checks for safety.? 4. Continue oral Invega at 6 mg daily as it has been nearly 2 months slnce last IM invega. Next IM invega 156 mg to be given tommorow. 5. Will attempt to gather collateral information. Involuntary Hold Information 96 Hour Hold: 96 Hour Involuntary Admission: Yes 96 Hour Hold Ending Date: 06/05/23 96 Hour Hold Ending Time: 20:37 Attestations NPU Medical Necessity Statement*: Inpatient hospitalization is medically necessary and the clinically appropriate intervention at this time. We will monitor and make medication changes as indicated.?The patient's likely length of stay is 3-4 days. Coding Level of Care Code Acute Code for [facility] Fwd Diagnoses Suicidal ideation R45.851 Schizophrenia F20.9
[2023-06-08 20:17] VITALS: BP 122/85; PULSE 75; RESP 17; O2SAT 96
[2023-06-08] MEDS: hyDROXYzine 25 mg Capsule 50 MG PO (20:37)
[2023-06-08] MEDS: trazodone 50 mg Tablet PO (20:37)
[2023-06-09 06:00] VITALS: BP 112/73; PULSE 50; RESP 16; O2SAT 96
[2023-06-09] MEDS: paliperidone palmitate 156 mg Syringe IM (08:11)
[2023-06-09] MEDS: thiamine 100 mg Tablet PO (08:11)
[2023-06-09] MEDS: paliperidone ER 6 mg Tablet PO (08:11)
--- NOTE | 2023-06-09 08:14 | PC.NURSE ---
INVBARBRA SUSTENNA 156 MG GIVEN IM ORDERED BY PHYSICIAN. INJECTION GIVEN IN LEFT DELTOID, PT TOLERATED WELL. WILL CONT TO MONITOR INJECTION SITE FOR ANY REDNESS, SWELLING, OR IRRITATION LOT [id number] EXP 10/2024
[2023-06-09] MEDS: nicotine 4 mg lozenge MUCOUS MEM ×5 (11:19→20:13)
[2023-06-09 14:00] VITALS: BP 147/56; PULSE 73; RESP 20; TEMP 36.8; O2SAT 95
--- NOTE | 2023-06-09 16:08 | P.NPUPN_ITS ---
Subjective NPU Subjective: Patient is a 28-year-old male with schizophrenia currently homeless who had reported noncompliance with his outpatient visits including having missed his last 2 months of Invega Sustenna. Patient reported no side effects as he received his second dose of Invega Sustenna today. He reported that he was feeling better. He was more interactive. He had reported that his suicidal thoughts were less frequent. He reported improved energy. He had continued to endorse some paranoia and distrust of his family. He had reported that he would like to go to [facility] and stay while getting back on his medication regimen on an outpatient basis. Mental Status Exam MSE Comments: This is an obese white male in hospital scrubs with poor grooming and fleeting eye contact. He was seen out in the day room socializing with others. His hygiene was better. His mood was described as okay. His affect remained restricted. There was evidence of mild psychomotor retardation. He was alert and oriented to person place and time. His speech was more productive with normal volume and increased spontaneous speech. Thought process was linear and logical. Thought content: Patient reported fleeting suicidal thoughts. He denied any homicidal ideation. There was evidence of paranoid process. His r ecent and remote memory were grossly intact although not formally tested. Insight was improving. Her judgment was poor and his impulse control is improving. Vitals/I&O/Wt Last Vital Signs Temp 98.2 F 06/09/23 14:00 Pulse 73 06/09/23 14:00 Resp 20 H 06/09/23 14:00 BP 147/56 06/09/23 14:00 Pulse Ox 95 06/09/23 14:00 O2 Del Method Room Air 06/09/23 06:00 Data NPU 06/01/23 20:21 06/01/23 20:21 A&P Assessment and plan (1) Suicidal ideation: (2) Schizophrenia: Plan 1. Encourage individual, group and milieu therapy. 2.Recommend sober living treatment at the highest level of care to which the patient is willing to commit. 3.Continue q-15 minute checks for safety.? 4. Continue oral Invega at 6 mg daily as it has been nearly 2 months slnce last IM invega. IM INVEGA given today. 5. Will attempt to gather collateral information. Involuntary Hold Information 96 Hour Hold: 96 Hour Involuntary Admission: Yes 96 Hour Hold Ending Date: 06/05/23 96 Hour Hold Ending Time: 20:37 Attestations NPU Medical Necessity Statement*: Inpatient hospitalization is medically necessary and the clinically appropriate intervention at this time. We will monitor and make medication changes as indicated.?The patient's likely length of stay is 3-4 days. Coding Level of Care Code Acute Code for [facility] Fwd Diagnoses Suicidal ideation R45.851 Schizophrenia F20.9
[2023-06-09 19:38] VITALS: BP 126/74; PULSE 111; RESP 16; TEMP 36.7; O2SAT 96
[2023-06-09] MEDS: hyDROXYzine 25 mg Capsule 50 MG PO (20:13)
[2023-06-09] MEDS: trazodone 50 mg Tablet PO (20:13)
[2023-06-10 06:00] VITALS: BP 103/64; PULSE 57; RESP 16; O2SAT 97
[2023-06-10] MEDS: thiamine 100 mg Tablet PO (09:53)
[2023-06-10] MEDS: nicotine 4 mg lozenge MUCOUS MEM (09:53)
[2023-06-10] MEDS: paliperidone ER 6 mg Tablet PO (09:53)
--- NOTE | 2023-06-10 13:17 | W.PM.NPUDCS ---
Diagnoses at Discharge Discharge Diagnosis (1) Suicidal ideation: Status: Acute (2) Schizophrenia: Status: Acute Reason for Visit Reason for Visit: si Brief History: History of Present Illness Braulio Terrazas is a 28 year old male with history of schizophrenia who presented to the emergency department after he had endorsed having increased paranoia while reporting that he feels that there has been a curse on his street that was associated with sex trafficking.? He had reported not having thoughts of hurting others but states that he has been having more suicidal thoughts.? The patient had reported that he has been homeless for several days.? He had reported that he had not had his Invega shot in the past 2 months with the recent reemergence of increased depression and increased confusion as he states that he has a hard time with knowing the difference in regards to reality.? He had endorsed having auditory hallucinations. Past Psychiatric History: 5 previous psychiatric admissions in 2022 at [facility] with multiple other hospitalizations in [place] as well. ?He had reported a history of multiple medication trials. Family History: Father had depression and alcoholism, a brother could possibly be bipolar, Past Medical History: Denies current medical issues. Current Medications: Invega 234mg/IM, thiamine, Substance Use History: Inhalants: Started age 89 years old huffing gasoline, he still coughs on occasion and last used 2 years ago at age 23 which is a little late for puffers as they tend to stop in their teenage years. Alcohol: Started age [age] years old, for a few years he was drinking a 12 pack a day, now he drinks 6 or 7 beers once a week and a few beers on other nights. Marijuana: Started age [age] years old has been a consistent user periods in his life Nicotine: Currently up 3 to 5 mg a day, started smoking cigarettes when he picked him up from his mother's ashtray at age 79 years old. Other: He says he has used other pills in the past including some opiates, muscle relaxers, amphetamines but nothing consistent. Legal history: None reported history: None Social History: He denies ever being or ever having kids.? He did graduate high school in [place], he is currently homeless and reports having limited contact with his family.? He had reported the use of illicit substances as an adolescent including huffing.? He had denied any history of childhood trauma.? He currently is unemployed and was living in [facility]. Discharge Summary from 03/27/2023 [facility] SI, ETOH on board? Brief History: Braulio Terrazas is a 28 year old male who presented to the emergency department with the following report: Chief Complaint: Psychiatric Symptoms Stated Complaint: SI, ETOH on board Time Seen by Provider: 03/22/23 03:06 Source: patient Mode of arrival: EMS Limitations: no limitations History of Present Illness:?? Patient is a 28-year-old male who presents to ED today via EMS for evaluation and treatment of suicidal ideations.? Patient tells me over the last 2 days he had been hanging with some friends when they abandoned him making him feel suicidal.? He has reportedly been drinking today.? He reports a recent hospitalization at [place] for suicidal ideations.? He was recently released a few days ago.? Patient has been seen at our facility multiple times for psychiatric complaints.? Patient states he has a plan to jump out in front of traffic.? Denies homicidal ideations. ? MD complaint: suicidal ideation and feels depressed Onset (ago): day(s) Duration: constant History of same: Yes Relieving factors: none Exacerbating factors: none Associated psychiatric symptoms: depression and suicidal ideation Associated symptoms: Reports depression and suicidal ideation If self harm: admits thoughts of self harm He was admitted to the neuropsychiatric unit for definitive treatment of those issues.? He presents today, well-known to this comic book writer from previous inpatient hospitalizations.? This is his fourth hospitalization at [facility] neuropsychiatric unit since December 06, 2022.? In that time he is also been at [place] in [place] at least 1 time.? Prior to that he had not been hospitalized since September 2021.? He presents today reporting a fairly hard to follow story with major concerns of whether it is real or delusional or made up.? He reports that he is in some friends were walking around with their shoes off.? That occasionally they would jog around.? Eventually reports at 1 point they started running and he could not keep up and they just kept running and left him.? He reports that he thought they were joking and would definitely return but they did not.? He reports that once they did not return so he really feeling bad about himself and questioning why they would do that.? He started feeling bad and left behind in having negative thoughts about himself.? He reports that he has been taking his medication which included Vistaril and Seroquel.? However he does endorse that he was hospitalized at [place] not too long ago and while there they did not continue his Invega.? However being on the injection it is unclear whether he was there during a time that he should have administer the injection.? He reports that he ended up at [place] because after discharging to [facility] from here back in February he started having problems with somebody living at [facility] as well.? He reports that with a mau that was being creepy. ? He reports that [facility] wanted him to leave because they took offense to his thoughts about this mau being creepy.? He reports that [facility] did not want him to return.? We discussed him possibly needing greater outpatient support.? We also discussed evaluating when he had his last Invega injection and considering restarting the Invega Sustenna injection and working on further residential stability and he understood and agreed to proceed as is documented in this note.? An excerpt of his last hospitalization February 2023 is included below for context given lack of substantive changes since then and his psychosocial reality as well as other history. Per his 02/18/2023 [facility] inpatient psychiatric discharge summary: Discharge Diagnosis (1) Acute psychosis: ? ? ? Status: Acute (2) Suicidal ideation: ? ? ? Status: Resolved (3) Major depressive disorder, recurrent, severe with psychotic symptoms: ? ? ? Status: Acute (4) Cannabis use disorder, moderate, in early remission, dependence: ? ? ? Status: Acute (5) Nicotine dependence, unspecified, uncomplicated: ? ? ? 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 ? ? Status: Acute (7) Generalized anxiety disorder: ? ? ? Status: Acute Reason for Visit Reason for Visit:?? SI? Brief History: History of Present Illness Braulio Terrazas is a 28 year old male recently discharged on 02/06/2023 from the neuropsychiatric unit directly to the [facility] inpatient treatment facility.? Patient has a history of psychotic disorder not otherwise specified and major depressive disorder along with polysubstance abuse.? He had reported that over the past 4 to 5 days while staying at [facility] he had felt that everyone was red in the face in that place .? He reports that he had felt that he was being held in a facility with a bunch of pedophiles .? He had endorsed that he had been having recurrent auditory hallucinations that have been getting worse.? He had reported that he has been sober without any alcohol or marijuana for several months.? He states that he had left the inpatient facility at [facility] and began walking outside and stated that he had wanted to walk in front of traffic with the intent to kill himself.? Patient reports that the police had arrived and had taken him to the emergency department for further evaluation.? He was admitted to the neuropsychiatric unit for further evaluation and treatment.? Per records, the collections manager had indicated that the patient had made a threat to shoot them although he reported that he had no such thoughts of wanting to harm another person.? Previous documents indicate that the patient has received his Invega Sustenna intramuscular on February at the [facility] inpatient unit.? He reports that he has been feeling more depressed and endorses suicidal thoughts along with repeated hallucinations that are distracting for him.? He reports no substantial changes in his medication regimen or his history compared to his previous admission less than 10 days ago. That that is what I thought so he needs he needs a higher dose of that so I will not have to add a little bit of something to this much appreciated yet by Excerpt from 02/06/23 discharge summary at Neuro[facility] unit. Brief History: History of Present Illness Braulio Terrazas is a 27 year old male to the emergency department with the following report: Chief Complaint: Psychiatric Symptoms Stated Complaint: SI Time Seen by Provider: 02/03/23 09:44 Source: patient Mode of arrival: ambulatory Limitations: no limitations History of Present Illness:?? Patient is a 27-year-old male who presents to ED today for evaluation of suicidal ideations.? Patient states he has felt suicidal for several days now.? He states he has a plan to run out in front of traffic.? Patient reportedly is at [facility] rehabilitation from alcohol abuse and he states many of the residents are causing him to feel suicidal.? He states it is a high stress/high emotion environment and he does not seem to be coping well.? He does report previous suicide attempts.? Patient states he was released from [facility] approximately a month and a half ago.? He has been taking all of his psychiatric medications as prescribed. Reports hallucinations but states he has schizophrenia so these are chronic. ? MD complaint: suicidal ideation and feels depressed Onset (ago): day(s) Duration: constant History of same: Yes Context: significant life stressor Associated psychiatric symptoms: depression and suicidal ideation Associated symptoms: Reports auditory hallucinations, visual hallucinations, depression and suicidal ideation; Deny homicidal ideation Treatments prior to arrival: none If self harm: admits thoughts of self harm He was admitted to the neuropsychiatric unit for definitive treatment of those issues.? He presents today reporting that he is just feeling depressed.? He was just discharged from here 12/29/2022 and an excerpt of that discharge is included below for context and the fact that after he left here he went directly to [facility] and is now coming back from [facility].? He reports that he is near completion of the program and they are looking for options for him.? He acknowledged that probably some of the sadness of feeling overwhelmed has to do with the fact that he is homeless and they have not found a viable option for him at this point though they are fully prepared to receive him back at discharge from here.? We discussed the fact that his Prozac is only a 20 mg which is a fairly low-dose and discussed the risks, benefits and alternatives of increasing that to 40 mg and he understood and agreed to proceed as is documented in this note.? We discussed this hopefully being a short stay was an increase in his antidepressant and collaboration with [facility] for him to return when he is able to contract for safety. Hospital Course Hospital Course During the hospitalization, the patient had routine laboratory studies which were within normal limits except for a few outliers.? Additionally, there was a general medical evaluation which was also within normal limits and revealed no new acute processes.? At the time of discharge, lethality was denied and psychosis was resolving.? Mood and anxiety were well managed.? The patient endorsed a plan to avoid all drugs of abuse and follow up with the aftercare recommendations of the treatment team.? The patient was evaluated and deemed to be absent credible lethality and had achieved the maximum benefit from an inpatient hospitalization, and so was discharged.? 2 doses of Invega Sustenna at 234 mg and 156 mg respectively was given 5 days apart to the patient intramuscularly. Patient was started back on Invega oral at 6 mg a day which would be tapered and discontinued over the next week. He reported no side effects from his medications. Involuntary Hold Information 96 Hour Hold: 96 Hour Involuntary Admission: Yes 96 Hour Hold Ending Date: 06/05/23 96 Hour Hold Ending Time: 20:37 Mental Status Exam MSE Comments: This is an obese white male in hospital scrubs with improved grooming and fleeting eye contact. His hygiene was better. His mood was described as good. His affect remained restricted. There was less evidence of psychomotor slowing today. He was alert and oriented to person place and time. His speech was more productive with normal volume and increased spontaneous speech. Thought process was linear and logical. Thought content: He denied any suicidal thoughts. He denied any homicidal ideation. There was no evidence of paranoia. He denied any auditory or visual hallucinations and did not appear to be responding to internal stimuli on discharge. His recent and remote memory were grossly intact although not formally tested. Insight was improving. Her judgment was improved and his impulse control is improving. Discharge Data Studies Completed and Pending: Laboratory Results WBC 8.40 10^3/uL (3.2 9-11.43) 06/01/23 20:21 RBC 4.69 10^6/uL (3.8 5-5.65) 06/01/23 20:21 Hgb 13.90 g/dL (11.27 -16.99) 06/01/23 20:21 Hct 41.2 % (37-53) 06/01/23 20:21 MCV 87.8 fl (82-101) 06/01/23 20:21 MCH 29.6 pg (27-33) 06/01/23 20:21 MCHC 33.7 g/dL (30-55) 06/01/23 20:21 RDW 13.2 % (12.1-15.1 ) 06/01/23 20:21 Plt Count 179 10^3/cmm (157 -399) 06/01/23 20:21 MPV 10.6 fL (7.4-10.4 ) H 06/01/23 20:21 Neut % (Auto) 71.6 % 06/01/23 20:21 Lymph % (Auto) 21.3 % 06/01/23 20:21 [place] % (Auto) 5.4 % 06/01/23 20:21 Eos % (Auto) 1.0 % 06/01/23 20:21 Baso % (Auto) 0.2 % 06/01/23 20:21 Neut # (Auto) 6.02 10^3/uL (1.8 -7.7) 06/01/23 20:21 Lymph # (Auto) 1.8 10^3/uL (0.8- 4.8) 06/01/23 20:21 [place]ell # (Auto) 0.5 10^3/uL (0.2- 0.9) 06/01/23 20:21 Eos # (Auto) 0.1 10^3/uL (0.0- 0.8) 06/01/23 20:21 Baso # (Auto) 0.0 10^3/uL (0.0- 0.1) 06/01/23 20:21 Nucleated RBC % (a uto) 0 % 06/01/23 20:21 Nucleated RBCs # 0.0 /100WBC 06/01/23 20:21 Sodium 137 mmol/L (136-1 45) 06/01/23 20:21 Potassium 4.0 mmol/L (3.5-5 .1) 06/01/23 20:21 Chloride 103 mmol/L (98-10 7) 06/01/23 20:21 Carbon Dioxide 23 mmol/L (22-29) 06/01/23 20:21 Anion Gap 15.0 (5-19) 06/01/23 20:21 BUN 11 mg/dL (6-20) 06/01/23 20:21 Creatinine 0.8 mg/dL (0.7-1. 2) 06/01/23 20:21 GFR Calculation 116.9 mL/min (90- 130) 06/01/23 20:21 Glucose 91 mg/dL (65-115) 06/01/23 20:21 Calculated Osmolal ity 283 mOsm/kg (285- 295) L 06/01/23 20:21 Calcium 9.1 mg/dL (8.5-10 .5) 06/01/23 20:21 Total Bilirubin 0.3 mg/dL (0.15-1 .2) 06/01/23 20:21 AST 19 U/L (0-40) 06/01/23 20:21 ALT 24 U/L (0-41) 06/01/23 20:21 Alkaline Phosphata se 74 U/L (40-130) 06/01/23 20:21 Total Protein 7.3 g/dL (6.6-8.7 ) 06/01/23 20:21 Albumin 4.5 g/dL (3.5-5.2 ) 06/01/23 20:21 Globulin 2.8 g/dL (1.3-4.6 ) 06/01/23 20:21 Salicylates < 0.3 mg/dL (3-10 ) L 06/01/23 20:21 Urine Opiates Scre en Negative ng/mL (N egative) 06/01/23 20:20 Acetaminophen < 5.0 ug/mL (10-3 0) L 06/01/23 20:21 Ur Barbiturates Sc reen Negative ng/mL (N egative) 06/01/23 20:20 Ur Phencyclidine S crn Negative ng/mL (N egative) 06/01/23 20:20 Ur Amphetamines Sc reen Negative ng/mL (N egative) 06/01/23 20:20 U Benzodiazepines Scrn Negative ng/mL (N egative) 06/01/23 20:20 Urine Cocaine Scre en Negative ng/mL (N egative) 06/01/23 20:20 U Marijuana (THC) Screen Positive ng/mL (N egative) H 06/01/23 20:20 Ethyl Alcohol < 10 mg/dL (0-10) 06/01/23 20:21 SARS-CoV-2 Ag (Rap id) Negative (Negati ve) 06/01/23 20:28 Vitals: Last Vital Signs Temp 98.1 F 06/09/23 19:38 Pulse 57 L 06/10/23 06:00 Resp 16 06/10/23 06:00 BP 103/64 06/10/23 06:00 Pulse Ox 97 06/10/23 06:00 O2 Del Method Room Air 06/10/23 06:00 Discharge Plan Discharge Patient Disposition: Home Condition: Stable Prescriptions: New paliperidone [Invega] 3 mg tablet extended release 24 hr 3 mg PO DAILY Qty: 30 1RF Continued trazodone 50 mg Tablet 50 mg PO BEDTIME PRN (Reason: Sleep) 30 Days Qty: 30 1RF thiamine mononitrate (vit B1) [Vitamin B-1 (mononitrate)] 100 mg Tablet 100 mg PO DAILY 30 Days Qty: 30 1RF Changed Invega Sustenna 234 mg/1.5 mL syringe 156 mg IM Q30D Qty: 1 1RF Rx Instructions: Take one IM every 28 days, next dose due 07/07/23 Discharge Orders: Discharge Order (Routine); Ordered 06/10/23 Ordered By: Juaquin Cooney Discharge Diet: Usual diet Discharge Activity: Resume usual activity Patient Instructions: Opioid Safety Discharge Attestations NPU Time Spent in Discharge Care*: less than 30 min Specific Discharge Activities: Specific discharge activities: educating patient and documenting/other paperwork Coding Level of Care Code Acute [facility] note Diagnoses Suicidal ideation R45.851 Schizophrenia F20.9
[2023-06-10 13:47] VITALS: BP 103/64; PULSE 57; RESP 16; O2SAT 97
== END 2023-06-10 14:16 | disposition home or self-care (01) | DRG 885 ==
LOC: ER 20:40 → NP 06-02 06:36
PROVIDERS: Admitting Provider Psychiatry & Neurology Psychiatry; Emergency Provider Emergency Medicine; Visit Provider Psychiatry & Neurology Psychiatry
DX: F20.9 Schizophrenia, unspecified (principal); R45.851 Suicidal ideations; R45.850 Homicidal ideations; Z59.00 Homelessness unspecified; Z81.1 Family history of alcohol abuse and dependence; Z81.8 Family history of other mental and behavioral disorders; Z91.148 Patient's other noncompliance with medication regimen for other reason; F17.290 Nicotine dependence, other tobacco product, uncomplicated
CPT/HCPCS: 36415; 80053; 80306; 80307; 85025; 87426; 93005; 96372; 97150; 97165; 99238; 99285

== ENCOUNTER 2023-06-24 01:33 | Inpatient (IN) | payer MEDICAID, SELFPAY ==
[2021-09-25 16:09] VITALS: BMI 39.9
[2023-06-24 01:34] VITALS: BP 122/79; PULSE 88; RESP 16; TEMP 36.5; O2SAT 97; BMI 33.2
[2023-06-24 01:56] LABS: Add Urine Microscopic? NO; Charge for UA Resulting for Rev
[2023-06-24 02:01] LABS: Basophils % 0.3 %; Eosinophils # 0.1 10^3/uL (0.0-0.8); Eosinophils % 0.8 %; Hematocrit 42.7 % (37-53); Lymphocytes # 2.8 10^3/uL (0.8-4.8); Lymphocytes % 28.1 %; Mean Corpuscular HGB Conc 32.6 g/dL (30-55); Mean Corpuscular Hemoglobin 28.9 pg (27-33); Mean Corpuscular Volume 88.8 fl (82-101); Mean Platelet Volume 11.5 fL (7.4-10.4); Monocytes # 0.8 10^3/uL (0.2-0.9); Monocytes % 7.8 %; Neutrophils % 62.7 %; Nucleated Red Blood Cells % 0 %; Platelet Count 200 10^3/cmm (157-399); Red Blood Count 4.81 10^6/uL (3.85-5.65); Red Cell Distribution Width 12.7 % (12.1-15.1); White Blood Count 10.04 10^3/uL (3.29-11.43)
[2023-06-24 02:04] LABS: Bilirubin Urine Neg (Negative); Blood Urine Neg (Negative); Glucose Urine UA Norm (Normal); Ketones Urine Negative (Negative); Nitrate Urine Negative (Negative); Protein Urine Neg (Negative); Urine Appearance Clear (CLEAR); Urine Color Yellow (Yellow); pH Urine 6 (5-7)
[2023-06-24 02:05] LABS: Leukocyte Esterase Urine Negative (Negative); Urobilinogen Urine Neg (Negative)
[2023-06-24 02:07] LABS: Amphetamines Screen Urine Negative (Negative); Barbiturates Screen Urine Negative (Negative); Benzodiazepines Screen Urine Negative (Negative); Cocaine Screen Urine Negative (Negative); Opiate Screen Urine Negative (Negative); PCP Screen Urine Negative (Negative); THC Screen Urine Positive (Negative)
--- NOTE | 2023-06-24 02:11 | ED.C_ITS ---
HPI - Psych General: Chief Complaint: Psychiatric Symptoms Stated Complaint: SI Time Seen by Provider: 06/24/23 01:38 History of Present Illness: Patient presents to the ER via EMS stating he is having suicidal ideation and has a plan to take something sharp and cut his wrist. Patient states he feels like he is feeling paranoid and having racing thoughts. He cannot take the stress anymore. He is afraid that someone is going to kidnap him. Review of Systems General: Reports: 10 or more systems reviewed and unremarkable except in HPI and below PFSH ED PFSH: Medical History Major depressive disorder, recurrent severe without psychotic features Psychiatric care Social History Smoking and tobacco status: current every day smoker e-cigarettes E-Cigarette Details: vaporizer device and with nicotine E-cig/vape details: 5 mg/Day Quit status (tobacco): considering quitting Second hand smoke exposure: No Current gender identity: Male Physical Exam Const: COMMON NORMALS: no acute distress, average body habitus, patient oriented x3, no limitations, healthy appearing, alert and well nourished HENMT: COMMON NORMALS: normocephalic, atraumatic, hearing grossly normal bilaterally, external ears normal, Normal external nose present and moist oral mucous membranes HEAD & SCALP: normocephalic and atraumatic NOSE: Normal external nose present EXTERNAL EAR: Yes external ears normal Neck/C-Spine: COMMON NORMALS: no JVD Chest: COMMONS NORMALS: normal inspection of the chest and normal palpation of entire chest wall Resp: COMMON NORMALS: normal respiratory effort, No retractions, No use of accessory muscles and clear to auscultation bilaterally AUSCULTATION: clear to auscultation bilaterally Cardio: COMMON NORMALS: no JVD, regular rate, regular rhythm, S1 normal heart sound present, S2 normal heart sound present, No gallops present (Cardio), No clicks present (Cardio), No murmurs present (Cardio) and No rub (Cardio) RATE: regular rate RHYTHM: regular rhythm HEART SOUNDS: S1 normal heart sound present and S2 normal heart sound present GI: COMMON NORMALS: Normal to inspection, nondistended, normoactive bowel sounds present, Soft to palpation, non-tender, No hepatosplenomegaly present and no masses PALPATION: Yes Soft to palpation and Yes No hepatosplenomegaly present : COMMON NORMALS: Yes no CVA tenderness BLADDER/KIDNEY EXAM: Yes no CVA tenderness Back/Pelvis: COMMON NORMALS: no CVA tenderness Neuro: COMMON NORMALS: patient oriented x3 SENSORIUM/ORIENTATION: Yes alert Course Vital Signs: Vital signs: Vital Signs Temperature 97.9 F 06/24/23 13:20 Pulse Rate 57 L 06/24/23 13:20 Respiratory Rate 15 06/24/23 13:20 Blood Pressure 135/76 06/24/23 13:20 Pulse Oximetry 97 06/24/23 13:20 Oxygen Delivery Me thod Room Air 06/24/23 03:52 MDM - Psych Medical Decision Making Patient presents to the ER with suicidal ideation and a plan. He was worked up in normal psychiatric fashion with labs. Dr. Huntley was consulted who agreed for further placement into patient for further evaluation and treatment. Differential Diagnosis Likely suicidal ideation; Unlikely acute psychosis, chronic schizophrenia, bipolar disorder, depression, drug-induced psychotic disorder or acute anxiety Medical Records I reviewed the patient's medical records. Lab Data I reviewed the patient's lab results. 06/24/23 01:50 06/24/23 01:50 Laboratory Results WBC 10.04 10^3/uL (3.29-11.43) 06/24/23 01:50 RBC 4.81 10^6/uL (3.85-5.65) 06/24/23 01:50 Hgb 13.90 g/dL (11.27-16.99) 06/24/23 01:50 Hct 42.7 % (37-53) 06/24/23 01:50 MCV 88.8 fl (82-101) 06/24/23 01:50 MCH 28.9 pg (27-33) 06/24/23 01:50 MCHC 32.6 g/dL (30-55) 06/24/23 01:50 RDW 12.7 % (12.1-15.1) 06/24/23 01:50 Plt Count 200 10^3/cmm (157-399) 06/24/23 01:50 MPV 11.5 fL (7.4-10.4) H 06/24/23 01:50 Neut % (Auto) 62.7 % 06/24/23 01:50 Lymph % (Auto) 28.1 % 06/24/23 01:50 [place]rus % (Auto) 7.8 % 06/24/23 01:50 Eos % (Auto) 0.8 % 06/24/23 01:50 Baso % (Auto) 0.3 % 06/24/23 01:50 Neut # (Auto) 6.30 10^3/uL (1.8-7.7) 06/24/23 01:50 Lymph # (Auto) 2.8 10^3/uL (0.8-4.8) 06/24/23 01:50 [place]rus # (Auto) 0.8 10^3/uL (0.2-0.9) 06/24/23 01:50 Eos # (Auto) 0.1 10^3/uL (0.0-0.8) 06/24/23 01:50 Baso # (Auto) 0.0 10^3/uL (0.0-0.1) 06/24/23 01:50 Nucleated RBC % (auto) 0 % 06/24/23 01:50 Nucleated RBCs # 0.0 /100WBC 06/24/23 01:50 Sodium 141 mmol/L (136-145) 06/24/23 01:50 Potassium 4.2 mmol/L (3.5-5.1) 06/24/23 01:50 Chloride 106 mmol/L (98-107) 06/24/23 01:50 Carbon Dioxide 27 mmol/L (22-29) 06/24/23 01:50 Anion Gap 12.2 (5-19) 06/24/23 01:50 BUN 7 mg/dL (6-20) 06/24/23 01:50 Creatinine 1.2 mg/dL (0.7-1.2) 06/24/23 01:50 GFR Calculation 73.2 mL/min (90-130) L 06/24/23 01:50 Glucose 92 mg/dL (65-115) 06/24/23 01:50 Calculated Osmolality 290 mOsm/kg (285-295) 06/24/23 01:50 Calcium 9.5 mg/dL (8.5-10.5) 06/24/23 01:50 Total Bilirubin 0.2 mg/dL (0.15-1.2) 06/24/23 01:50 AST 22 U/L (0-40) 06/24/23 01:50 ALT 34 U/L (0-41) 06/24/23 01:50 Alkaline Phosphatase 74 U/L (40-130) 06/24/23 01:50 Total Protein 7.2 g/dL (6.6-8.7) 06/24/23 01:50 Albumin 4.3 g/dL (3.5-5.2) 06/24/23 01:50 Globulin 2.9 g/dL (1.3-4.6) 06/24/23 01:50 Urine Color Yellow (Yellow) 06/24/23 01:46 Urine Appearance Clear (CLEAR) 06/24/23 01:46 Urine pH 6 (5-7) 06/24/23 01:46 Ur Specific [place] 1.020 (1.005-1.030) 06/24/23 01:46 Urine Protein Neg (Negative) 06/24/23 01:46 Urine Glucose (UA) Norm (Normal) 06/24/23 01:46 Urine Ketones Negative (Negative) 06/24/23 01:46 Urine Blood Neg (Negative) 06/24/23 01:46 Urine Nitrate Negative (Negative) 06/24/23 01:46 Urine Bilirubin Neg (Negative) 06/24/23 01:46 Urine Urobilinogen Neg mg/dL (Negative) 06/24/23 01:46 Ur Leukocyte Esterase Negative (Negative) 06/24/23 01:46 Salicylates < 0.3 mg/dL (3-10) L 06/24/23 01:50 Urine Opiates Screen Negative ng/mL (Negative) 06/24/23 01:46 Acetaminophen < 5.0 ug/mL (10-30) L 06/24/23 01:50 Ur Barbiturates Screen Negative ng/mL (Negative) 06/24/23 01:46 Ur Phencyclidine Scrn Negative ng/mL (Negative) 06/24/23 01:46 Ur Amphetamines Screen Negative ng/mL (Negative) 06/24/23 01:46 U Benzodiazepines Scrn Negative ng/mL (Negative) 06/24/23 01:46 Urine Cocaine Screen Negative ng/mL (Negative) 06/24/23 01:46 U Marijuana (THC) Screen Positive ng/mL (Negative) H 06/24/23 01:46 Ethyl Alcohol < 10 mg/dL (0-10) 06/24/23 01:50 No radiology studies performed this visit Discharge Plan Discharge Patient Disposition: Admitted As Inpatient Admit Provider: Timur Huntley Clinical Impression: Suicidal ideation Condition: Stable Coding Level of Care Code ED [employer] Engine Performance Engineer for Eric Glover
[2023-06-24 02:17] LABS: Alanine Aminotransferase 34 U/L (0-41); Albumin Level 4.3 g/dL (3.5-5.2); Alkaline Phosphatase 74 U/L (40-130); Anion Gap 12.2 (5-19); Aspartate Amino Transferase 22 U/L (0-40); Blood Urea Nitrogen 7 mg/dL (6-20); Calcium 9.5 mg/dL (8.5-10.5); Carbon Dioxide 27 mmol/L (22-29); Chloride 106 mmol/L (98-107); Globulin 2.9 g/dL (1.3-4.6); Glomerular Filtration Rate 73.2 mL/min (90-130); Glucose 92 mg/dL (65-115); Osmolality Calculated 290 mOsm/kg (285-295); Potassium 4.2 mmol/L (3.5-5.1); Sodium 141 mmol/L (136-145); Total Bilirubin 0.2 mg/dL (0.15-1.2); Total Protein 7.2 g/dL (6.6-8.7)
[2023-06-24 02:18] LABS: Acetaminophen < 5.0 ug/mL (10-30); Alcohol Level < 10 mg/dL (0-10); Salicylate < 0.3 mg/dL (3-10)
[2023-06-24 03:39] VITALS: BP 116/74; PULSE 74; RESP 18; TEMP 36.4; O2SAT 97
[2023-06-24 03:51] VITALS: BP 122/79; PULSE 88; RESP 16; TEMP 36.5; O2SAT 97
[2023-06-24 06:00] VITALS: BP 105/56; PULSE 59; RESP 16; O2SAT 97
--- NOTE | 2023-06-24 09:48 | W.PM.NPUH&PS ---
Providers/Chief Complaint Admitting Physician: Timur Huntley MD Chief Complaint: SI HPI NPU History of Present Illness Braulio Terrazas is a 28 year old male who presented to the emergency department with the following report: Chief Complaint: Psychiatric Symptoms Stated Complaint: SI Time Seen by Provider: 06/24/23 01:38 History of Present Illness: Patient presents to the ER via EMS stating he is having suicidal ideation and has a plan to take something sharp and cut his wrist. Patient states he feels like he is feeling paranoid and having racing thoughts. He cannot take the stress anymore. He is afraid that someone is going to kidnap him. He was admitted to the neuropsychiatric unit for definitive treatment of those issues. He presents today with his 6 hospitalization since December. He has had limited outpatient treatment. He did not make his 06/22/2023 outpatient psychiatric valuation and it is unclear whether he maintained the necessary appointments for the [facility] program. An excerpt of his previous hospitalization is included below for context and the lack of substantive changes. He presents today much like he has in the past hospitalizations reporting some timeframe of nonadherence to medication, homelessness and some other stressor. He denies major changes since his last stay reporting that he had been staying down at [facility] trying to work on his issues. He can give no clarity to what seems to be well plans made in the hospital. We discussed having concerns that he may need some kind of guardian. He denies significant recent addiction issues and his UDS was only positive for cannabis. We agreed that this physician underwriter would look through his medications and try to get a sense of how consistent he has been with the medication to understand if any change is necessary. He endorsed a willingness to work with us towards some better outcome. We discussed the risks, benefits alternatives of restarting his medications as he reports them. And he understood agreed to proceed as is documented in this note. Per his 06/10/2023 [facility] inpatient psychiatric discharge summary: Discharge Diagnosis (1) Suicidal ideation: Status: Acute (2) Schizophrenia: Status: Acute Reason for Visit Reason for Visit: si Brief History: History of Present Illness Braulio Terrazas is a 28 year old male with history of schizophrenia who presented to the emergency department after he had endorsed having increased paranoia while reporting that he feels that there has been a curse on his street that was associated with sex trafficking. He had reported not having thoughts of hurting others but states that he has been having more suicidal thoughts. The patient had reported that he has been homeless for several days. He had reported that he had not had his Invega shot in the past 2 months with the recent reemergence of increased depression and increased confusion as he states that he has a hard time with knowing the difference in regards to reality. He had endorsed having auditory hallucinations. Past Psychiatric History: 5 previous psychiatric admissions in 2022 at [facility] with multiple other hospitalizations in [place] as well. He had reported a history of multiple medication trials. Family History: Father had depression and alcoholism, a brother could possibly be bipolar, Past Medical History: Denies current medical issues. Current Medications: Invega 234mg/IM, thiamine, Substance Use History: Inhalants: Started age 89 years old huffing gasoline, he still coughs on occasion and last used 2 years ago at age 23 which is a little late for puffers as they tend to stop in their teenage years. Alcohol: Started age [age] years old, for a few years he was drinking a 12 pack a day, now he drinks 6 or 7 beers once a week and a few beers on other nights. Marijuana: Started age [age] years old has been a consistent user periods in his life Nicotine: Currently up 3 to 5 mg a day, started smoking cigarettes when he picked him up from his mother's ashtray at age 79 years old. Other: He says he has used other pills in the past including some opiates, muscle relaxers, amphetamines but nothing consistent. Legal history: None reported history: None Social History: He denies ever being or ever having kids. He did graduate high school in [place], he is currently homeless and reports having limited contact with his family. He had reported the use of illicit substances as an adolescent including huffing. He had denied any history of childhood trauma. He currently is unemployed and was living in [facility]. Discharge Summary from 03/27/2023 U SI, ETOH on board Brief History: Brualio Terrazas is a 28 year old male who presented to the emergency department with the following report: Chief Complaint: Psychiatric Symptoms Stated Complaint: SI, ETOH on board Time Seen by Provider: 03/22/23 03:06 Source: patient Mode of arrival: EMS Limitations: no limitations History of Present Illness: Patient is a 28-year-old male who presents to ED today via EMS for evaluation and treatment of suicidal ideations. Patient tells me over the last 2 days he had been hanging with some friends when they abandoned him making him feel suicidal. He has reportedly been drinking today. He reports a recent hospitalization at [place] for suicidal ideations. He was recently released a few days ago. Patient has been seen at our facility multiple times for psychiatric complaints. Patient states he has a plan to jump out in front of traffic. Denies homicidal ideations. MD complaint: suicidal ideation and feels depressed Onset (ago): day(s) Duration: constant History of same: Yes Relieving factors: none Exacerbating factors: none Associated psychiatric symptoms: depression and suicidal ideation Associated symptoms: Reports depression and suicidal ideation If self harm: admits thoughts of self harm He was admitted to the neuropsychiatric unit for definitive treatment of those issues. He presents today, well-known to this physician underwriter from previous inpatient hospitalizations. This is his fourth hospitalization at [facility] neuropsychiatric unit since December 06, 2022. In that time he is also been at [place] in [place] at least 1 time. Prior to that he had not been hospitalized since September 2021. He presents today reporting a fairly hard to follow story with major concerns of whether it is real or delusional or made up. He reports that he is in some friends were walking around with their shoes off. That occasionally they would jog around. Eventually reports at 1 point they started running and he could not keep up and they just kept running and left him. He reports that he thought they were joking and would definitely return but they did not. He reports that once they did not return so he really feeling bad about himself and questioning why they would do that. He started feeling bad and left behind in having negative thoughts about himself. He reports that he has been taking his medication which included Vistaril and Seroquel. However he does endorse that he was hospitalized at [place] not too long ago and while there they did not continue his Invega. However being on the injection it is unclear whether he was there during a time that he should have administer the injection. He reports that he ended up at [place] because after discharging to [facility] from here back in February he started having problems with somebody living at [facility] as well. He reports that with a mau that was being creepy. He reports that [employer] wanted him to leave because they took offense to his thoughts about this mau being creepy. He reports that solutions did not want him to return. We discussed him possibly needing greater outpatient support. We also discussed evaluating when he had his last Invega injection and considering restarting the Invega Sustenna injection and working on further residential stability and he understood and agreed to proceed as is documented in this note. An excerpt of his last hospitalization February 2023 is included below for context given lack of substantive changes since then and his psychosocial reality as well as other history. 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 He had reported that over the past 4 to 5 days while staying at [facility] he had felt that everyone was red in the face in that place . He reports that he had felt that he was being held in a facility with a bunch of pedophiles . He had endorsed that he had been having recurrent auditory hallucinations that have been getting worse. He had reported that he has been sober without any alcohol or marijuana for several months. He states that he had left the inpatient facility at [facility] and began walking outside and stated that he had wanted to walk in front of traffic with the intent to kill himself. Patient reports that the police had arrived and had taken him to the emergency department for further evaluation. He was admitted to the neuropsychiatric unit for further evaluation and treatment. Per records, the strap sewer had indicated that the patient had made a threat to shoot them although he reported that he had no such thoughts of wanting to harm another person. Previous documents indicate that the patient has received his Invega Sustenna intramuscular on February at the [facility] inpatient unit. He reports that he has been feeling more depressed and endorses suicidal thoughts along with repeated hallucinations that are distracting for him. He reports no substantial changes in his medication regimen or his history compared to his previous admission less than 10 days ago. That that is what I thought so he needs he needs a higher dose of that so I will not have to add a little bit of something to this much appreciated yet by Excerpt from 02/06/23 discharge summary at Neuropsychiatric unit. Brief History: History of Present Illness Braulio Terrazas is a 27 year old male to the emergency department with the following report: Chief Complaint: Psychiatric Symptoms Stated Complaint: SI Time Seen by Provider: 02/03/23 09:44 Source: patient Mode of arrival: ambulatory Limitations: no limitations History of Present Illness: Patient is a 27-year-old male who presents to ED today for evaluation of suicidal ideations. Patient states he has felt suicidal for several days now. He states he has a plan to run out in front of traffic. Patient reportedly is at [facility] rehabilitation from alcohol abuse and he states many of the residents are causing him to feel suicidal. He states it is a high stress/high emotion environment and he does not seem to be coping well. He does report previous suicide attempts. Patient states he was released from [facility] approximately a month and a half ago. He has been taking all of his psychiatric medications as prescribed. Reports hallucinations but states he has schizophrenia so these are chronic. MD complaint: suicidal ideation and feels depressed Onset (ago): day(s) Duration: constant History of same: Yes Context: significant life stressor Associated psychiatric symptoms: depression and suicidal ideation Associated symptoms: Reports auditory hallucinations, visual hallucinations, depression and suicidal ideation; Deny homicidal ideation Treatments prior to arrival: none If self harm: admits thoughts of self harm He was admitted to the neuropsychiatric unit for definitive treatment of those issues. He presents today reporting that he is just feeling depressed. He was just discharged from here 12/29/2022 and an excerpt of that discharge is included below for context and the fact that after he left here he went directly to [facility] and is now coming back from [facility]. He reports that he is near completion of the program and they are looking for options for him. He acknowledged that probably some of the sadness of feeling overwhelmed has to do with the fact that he is homeless and they have not found a viable option for him at this point though they are fully prepared to receive him back at discharge from here. We discussed the fact that his Prozac is only a 20 mg which is a fairly low-dose and discussed the risks, benefits and alternatives of increasing that to 40 mg and he understood and agreed to proceed as is documented in this note. We discussed this hopefully being a short stay was an increase in his antidepressant and collaboration with adeline yusuf for him to return when he is able to contract for safety. Hospital Course During the hospitalization, the patient had routine laboratory studies which were within normal limits except for a few outliers. Additionally, there was a general medical evaluation which was also within normal limits and revealed no new acute processes. At the time of discharge, lethality was denied and psychosis was resolving. Mood and anxiety were well managed. The patient endorsed a plan to avoid all drugs of abuse and follow up with the aftercare recommendations of the treatment team. The patient was evaluated and deemed to be absent credible lethality and had achieved the maximum benefit from an inpatient hospitalization, and so was discharged. 2 doses of Invega Sustenna at 234 mg and 156 mg respectively was given 5 days apart to the patient intramuscularly. Patient was started back on Invega oral at 6 mg a day which would be tapered and discontinued over the next week. He reported no side effects from his medications. Meds NPU Home Medications Medication Instructions Recorded Confirmed Last Taken Type paliperidone 3 mg tablet,extended 3 mg PO DAILY #30 tabs 06/10/23 06/24/23 Unknown Rx release 24 hr (Invega) paliperidone palmitate 234 mg/1.5 156 mg IM Q30D #1 mL 06/10/23 06/24/23 Unknown Rx mL intramuscular syringe (Invega Sustenna) Allergies Allergy/AdvReac Type Severity Reaction Status Date / Time No Known Allergies Allergy Verified 06/24/23 01:39 PFS NPU PFSH: Medical History Major depressive disorder, recurrent severe without psychotic features Psychiatric care Social History Smoking and tobacco status: current every day smoker e-cigarettes E-Cigarette Details: vaporizer device and with nicotine E-cig/vape details: 5 mg/Day Quit status (tobacco): considering quitting Second hand smoke exposure: No Current gender identity: Male Mental Status Exam MSE Comments: This is an obese white male in hospital scrubs with limited grooming and eye contact. No abnormal movements except for psychomotor retardation. Cooperative with exam in mild distress. Speech was decreased rate and volume. Mood described as depressed/frustrated, affect congruent. Thought process organized. Thought content: Patient endorsed some suicidal but denied homicidal ideations, there were no delusions reported or noted, he denied any visual hallucinations but endorses auditory hallucinations. Attention and concentration were limited and memory appeared mostly reliable but were not formally tested. He is alert and oriented x3. Insight, judgment and impulse control are limited versus impaired. 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 1.? Continue current medications. We will find out when his last Invega Sustenna injection was. 2. Continue every 15 minute checks for safety. 3.? Encourage individual, group and milieu therapies. 4.? Encourage sober living treatment after discharge at the highest level of care to which he is willing to commit. 5.? Work with social work team to identify any possible residential options given some part of his issues seems to stem around homelessness. Involuntary Hold Information 96 Hour Hold: 96 Hour Involuntary Admission: No 96 Hour Hold Ending Date: 06/05/23 96 Hour Hold Ending Time: 20:37 Attestations NPU Medical Necessity Statement*: Inpatient hospitalization is medically necessary and the clinically appropriate intervention at this time. We will monitor and make medication changes as indicated.?Patient will be here for at least 2 midnights. Likely length of stay 3-5 days. 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
[2023-06-24 13:20] VITALS: BP 135/76; PULSE 57; RESP 15; TEMP 36.6; O2SAT 97
--- NOTE | 2023-06-24 19:52 | PC.NURSE ---
ASSESSMENT COMPLETED IN ROOM. PT DENIES PAIN. DENIES SI/HI AND AVH AT THIS TIME. DOES ENDORSE VERY HIGH DEPRESSION AND MY ANXIETY IS 15/10. PT WAS EDUCATED THAT HE CAN HAVE MEDICATIONS FOR INCREASED ANXIETY. PT ACCEPTED. PT ALSO REQUEST SLEEP MEDS IF I CAN HAVE THEM. PT WAS INFORMED THAT THIS RN CAN GIVE SLEEP MEDICATIONS AFTER 1999. PT STATES OK I WILL SEE YOU THEN. ALL QUESTIONS ANSWERED AND SUPPORT VOICED.
[2023-06-24] MEDS: hyDROXYzine 25 mg Capsule 50 MG PO (20:14)
[2023-06-24] MEDS: trazodone 50 mg Tablet PO (20:14)
[2023-06-24 20:17] VITALS: BP 137/75; PULSE 61; RESP 18; TEMP 36.6; O2SAT 96
--- NOTE | 2023-06-24 21:50 | PC.NURSE ---
PT REQUESTED MEDICATION TO DECREASE ANXIETY TO SOMETHING TO HELP HIM SLEEP. PT WAS GIVEN TRAZODONE 50 MG PO ORDERED FOR INSOMNIA AND VISTARIL 50 MG PO FOR ANXIETY. PT HAS BEEN IN HIS ROOM SLEEPING SINCE HE TOOK HIS MEDICATIONS. MEDICATIONS DEEMED EFFECTIVE.
[2023-06-25 06:00] VITALS: BP 120/67; PULSE 54; RESP 16; TEMP 36.4; O2SAT 97
[2023-06-25] MEDS: paliperidone ER 3 mg Tablet PO (10:47)
--- NOTE | 2023-06-25 11:03 | W.PM.NPUPNS ---
Subjective NPU Subjective: Patient presented today reporting that he is doing okay. He was more talkative spontaneously today than he had been and we had a more in-depth conversation about concerns for his limited functioning and repeat hospitalizations. We discussed the possibility of him needing to consider guardianship if he is incapable of self management and may be in need of additional oversight for general decision-making of life. Mental Status Exam MSE Comments: This is an obese white male in hospital scrubs with limited grooming and eye contact. No abnormal movements except for psychomotor retardation. Cooperative with exam in mild distress. Speech was decreased rate and volume. Mood described as depressed/frustrated, affect congruent. Thought process organized. Thought content: Patient endorsed some suicidal but denied homicidal ideations, there were no delusions reported or noted, he denied any visual hallucinations but endorses auditory hallucinations. Attention and concentration were limited and memory appeared mostly reliable but were not formally tested. He is alert and oriented x3. Insight, judgment and impulse control are limited versus impaired. 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 1.? Continue current medications. We will find out when his last Invega Sustenna injection was. 2. Continue every 15 minute checks for safety. 3.? Encourage individual, group and milieu therapies. 4.? Encourage sober living treatment after discharge at the highest level of care to which he is willing to commit. 5.? Work with social work team to identify any possible residential options given some part of his issues seems to stem around homelessness. Involuntary Hold Information 96 Hour Hold: 96 Hour Involuntary Admission: No 96 Hour Hold Ending Date: 06/05/23 96 Hour Hold Ending Time: 20:37 Attestations NPU Medical Necessity Statement*: Inpatient hospitalization is medically necessary and the clinically appropriate intervention at this time. We will monitor and make medication changes as indicated.?Patient will be here for at least 2 midnights. Likely length of stay 3-5 days. 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
[2023-06-25 14:00] VITALS: BP 142/78; PULSE 58; RESP 16; TEMP 36.7; O2SAT 97
[2023-06-25] MEDS: nicotine 4 mg lozenge MUCOUS MEM (17:38)
[2023-06-25 20:08] VITALS: BP 119/70; PULSE 90; RESP 16; TEMP 36.7; O2SAT 96
--- NOTE | 2023-06-25 20:12 | PC.NURSE ---
ASSESSMENT COMPLETED IN ROOM. DENIES PAIN. DENIES SI/HI AND AVH AT THIS TIME. PT STATES HE WOULD LIKE HAVE SOMETHING TO HELP ME SLEEP AND SOMETHING FOR ANXIETY. PT WAS ASSURED THAT THIS RN WOULD PULL MEDICATIONS AND HE COULD COME THEM AFTER 8PM. PT STATES THAT WILL BE FINE. PT CONTINUES TO HAVE FLAT AFFECT AND IS WITHDRAWN. SUPPORT VOICED.
[2023-06-25] MEDS: trazodone 50 mg Tablet PO (21:40)
[2023-06-25] MEDS: hyDROXYzine 25 mg Capsule 50 MG PO (21:41)
--- NOTE | 2023-06-25 23:00 | PC.NURSE ---
PT WAS GIVEN VISTARIL 50 MG ORDERED FOR ANXIETY AND TRAZODONE 50 MG ORDERED FOR SLEEP. PT HAS BEEN RESTING WITH EASE. MEDICATIONS DEEMED EFFECTIVE. PT CONTINUES TO SLEEP.
[2023-06-26 06:00] VITALS: BP 108/64; PULSE 55; RESP 18; TEMP 36.6; O2SAT 96
[2023-06-26] MEDS: paliperidone ER 3 mg Tablet PO (09:16)
--- NOTE | 2023-06-26 09:23 | PC.NURSE ---
Denies avh and si/hi. He states his depression is worse this morning and rates it a 8/10. He says it is due to feeling stressed about his living situation and what he will do when he is discharged. This RN encouraged him to share his concerns with the planner intern and the doctor.
[2023-06-26] MEDS: nicotine 4 mg lozenge MUCOUS MEM ×4 (12:15→20:38)
[2023-06-26 14:00] VITALS: BP 129/78; PULSE 97; RESP 18; TEMP 37.1; O2SAT 96
--- NOTE | 2023-06-26 15:02 | W.PM.NPUPNS ---
Subjective NPU Subjective: Patient presented today reporting that he was feeling significant anxiety about returning to the community. We discussed the importance of figuring out what he needs to do for stability and whether that means guardianship or some other circumstance that has more structure. He endorsed a plan to do what ever was needed to get things on track. We discussed Dr. Cooney returning tomorrow to continue this process. Mental Status Exam MSE Comments: This is an obese white male in hospital scrubs with limited grooming and eye contact. No abnormal movements except for psychomotor retardation. Cooperative with exam in mild distress. Speech was decreased rate and volume. Mood described as depressed/frustrated, affect congruent. Thought process organized. Thought content: Patient endorsed some suicidal but denied homicidal ideations, there were no delusions reported or noted, he denied any visual hallucinations but endorses auditory hallucinations. Attention and concentration were limited and memory appeared mostly reliable but were not formally tested. He is alert and oriented x3. Insight, judgment and impulse control are limited versus impaired. Vitals/I&O/Wt Last Vital Signs Temp 98.7 F 06/26/23 14:00 Pulse 97 06/26/23 14:00 Resp 18 06/26/23 14:00 BP 129/78 06/26/23 14:00 Pulse Ox 96 06/26/23 14:00 O2 Del Method Room Air 06/26/23 14:00 Data NPU 06/24/23 01:50 06/24/23 01:50 A&P Assessment and plan (1) Acute psychosis: (2) Suicidal ideation: (3) Major depressive disorder, recurrent, severe with psychotic symptoms: (4) Cannabis use disorder, moderate, in early remission, dependence: (5) Nicotine dependence, unspecified, uncomplicated: (6) Cluster A personality disorder in adult: (7) Generalized anxiety disorder: Plan This is a 28-year-old white male well known to the neuropsychiatric unit with known history of depression, psychosis, addiction and residential instability who presents less than a month since his last hospitalization here off his medication for a few days reportedly feeling overwhelmed with suicidal ideation along with active psychosis. 1.? Continue current medications. We will find out when his last Invega Sustenna injection was. 2. Continue every 15 minute checks for safety. 3.? Encourage individual, group and milieu therapies. 4.? Encourage sober living treatment after discharge at the highest level of care to which he is willing to commit. 5.? Work with social work team to identify any possible residential options given some part of his issues seems to stem around homelessness. Involuntary Hold Information 96 Hour Hold: 96 Hour Involuntary Admission: No 96 Hour Hold Ending Date: 06/05/23 96 Hour Hold Ending Time: 20:37 Attestations NPU Medical Necessity Statement*: Inpatient hospitalization is medically necessary and the clinically appropriate intervention at this time. We will monitor and make medication changes as indicated. Likely length of stay 3-5 days. 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
[2023-06-26] MEDS: hyDROXYzine 25 mg Capsule 50 MG PO (15:41)
[2023-06-26 19:49] VITALS: BP 137/78; PULSE 95; RESP 16; TEMP 36.8; O2SAT 97
[2023-06-27] MEDS: nicotine 4 mg lozenge MUCOUS MEM ×3 (00:01→20:57)
[2023-06-27 06:00] VITALS: BP 133/69; PULSE 58; RESP 17; TEMP 36.7; O2SAT 97
--- NOTE | 2023-06-27 09:05 | PC.NURSE ---
During morning assessment, patient stated that he is not good . Patient rates anxiety 9/10. For depression, patient rated it 10/10. Patient states that the cause of anxiety and depression is family life . Patient says that around 5am he was awake and seeing and hearing things . No known trigger, per patient. Patient endorses thoughts of self-hrm, but denies any plan.
[2023-06-27] MEDS: paliperidone ER 3 mg Tablet PO (09:21)
[2023-06-27] MEDS: polyethylene glycol 3350 Pkt 17 gm PO (13:17)
[2023-06-27 13:21] VITALS: BP 95/57; PULSE 63; RESP 19; TEMP 36.5; O2SAT 96
--- NOTE | 2023-06-27 19:08 | W.PM.NPUPNS ---
Subjective NPU Subjective: 28-year-old white male with a history of multiple inpatient hospitalizations with a diagnosis of schizophrenia admitted with suicidal ideation. Patient had reported having continued anxiety but stated that he was not feeling as suicidal. He stated that he continued to report feeling stalked by others as he stated that he continued to hear voices at nighttime. He had reported no side effects from his Invega at this time. He had reported no feelings of hopelessness or worthlessness. He had still expressed some concern regarding his family as he reported some paranoia. He had been able to manage his own self-care and engaged in completion of ADLs today. Mental Status Exam MSE Comments: This is an obese white male in hospital scrubs with limited grooming and eye contact. No abnormal involuntary motor movements except for psychomotor retardation. He was cooperative with exam in mild acute distress. Speech was decreased in rate and normal in volume. Mood described as okay. His affect remained flat and mood incongruent. Thought process was linear and organized. Thought content: Patient endorsed fleeting suicidal thoughts and no homicidal thoughts. There was no overt delusions but still evidence of paranoia. He denied any visual hallucinations but endorses auditory hallucinations. Attention and concentration were limited and memory appeared mostly reliable but were not formally tested. He is alert and oriented x3. Insight, judgment and impulse control is poor. Vitals/I&O/Wt Last Vital Signs Temp 97.7 F 06/27/23 13:21 Pulse 63 06/27/23 13:21 Resp 19 H 06/27/23 13:21 BP 95/57 06/27/23 13:21 Pulse Ox 96 06/27/23 13:21 O2 Del Method Room Air 06/27/23 06:00 Data NPU 06/24/23 01:50 06/24/23 01:50 A&P Assessment and plan (1) Acute psychosis: (2) Suicidal ideation: (3) Major depressive disorder, recurrent, severe with psychotic symptoms: (4) Cannabis use disorder, moderate, in early remission, dependence: (5) Nicotine dependence, unspecified, uncomplicated: (6) Cluster A personality disorder in adult: (7) Generalized anxiety disorder: Plan This is a 28-year-old white male well known to the neuropsychiatric unit with known history of depression, psychosis, addiction and residential instability who presents less than a month since his last hospitalization here off his medication for a few days reportedly feeling overwhelmed with suicidal ideation along with active psychosis. 1.? Continue invega 6mg at night. Last invega sustenna injection was less than one month ago. 2. Continue every 15 minute checks for safety. 3.? Encourage individual, group and milieu therapies. 4.? Encourage sober living treatment after discharge at the highest level of care to which he is willing to commit. 5.? Work with social work team to identify any possible residential options given some part of his issues seems to stem around homelessness. Involuntary Hold Information 96 Hour Hold: 96 Hour Involuntary Admission: No 96 Hour Hold Ending Date: 06/05/23 96 Hour Hold Ending Time: 20:37 Attestations NPU Medical Necessity Statement*: Inpatient hospitalization is medically necessary and the clinically appropriate intervention at this time. We will monitor and make medication changes as indicated. Likely length of stay 3-5 days. 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
[2023-06-27 19:53] VITALS: BP 107/67; PULSE 72; RESP 15; TEMP 36.7; O2SAT 95
[2023-06-28 06:00] VITALS: BP 109/67; PULSE 63; RESP 15; TEMP 36.4; O2SAT 95; BMI 33.5
--- NOTE | 2023-06-28 08:06 | PC.NURSE ---
refused scheduled Miralax packet this morning
[2023-06-28] MEDS: paliperidone ER 3 mg Tablet PO (08:16)
--- NOTE | 2023-06-28 13:07 | W.PM.NPUPNS ---
Subjective NPU Subjective: 28-year-old white male with a history of multiple inpatient hospitalizations with a diagnosis of schizophrenia admitted with suicidal ideation. Patient denied suicidal ideation. He continued to report concern that he was feeling suspicious and paranoid including ideas that he was being stalked by a gang. He had engaged in self-care here. He had reported continually feeling worried about his living situation but was unable to elaborate as to why he had felt unsafe at his current skilled nursing. Patient had denied any drug or alcohol use recently. He had continued to isolate himself on the milieu. He reported adequate sleep. Mental Status Exam MSE Comments: This is an obese white male in hospital scrubs with limited grooming and eye contact. No abnormal involuntary motor movements except for psychomotor retardation. He was cooperative with exam in mild acute distress. Speech was decreased in rate and normal in volume. Mood described as allright. His affect remained subdued. Thought process was linear and organized. Thought content: Patient endorsed no suicidal thoughts and no homicidal thoughts. There was no overt delusions but still evidence of paranoia and ideas of being targeted by gangs. He denied any visual hallucinations but endorses auditory hallucinations. Attention and concentration were limited and memory appeared mostly reliable but were not formally tested. He is alert and oriented x3. Insight, judgment and impulse control is poor. Vitals/I&O/Wt Last Vital Signs Temp 97.6 F 06/28/23 06:00 Pulse 63 06/28/23 06:00 Resp 15 06/28/23 06:00 BP 109/67 06/28/23 06:00 Pulse Ox 95 06/28/23 06:00 O2 Del Method Room Air 06/28/23 06:00 Weight last 48 hrs Weight 128.026 kg Data NPU 06/24/23 01:50 06/24/23 01:50 A&P Assessment and plan (1) Acute psychosis: (2) Suicidal ideation: (3) Major depressive disorder, recurrent, severe with psychotic symptoms: (4) Cannabis use disorder, moderate, in early remission, dependence: (5) Nicotine dependence, unspecified, uncomplicated: (6) Cluster A personality disorder in adult: (7) Generalized anxiety disorder: Plan This is a 28-year-old white male well known to the neuropsychiatric unit with known history of depression, psychosis, addiction and residential instability who presents less than a month since his last hospitalization here off his medication for a few days reportedly feeling overwhelmed with suicidal ideation along with active psychosis. 1.? Reduced invega oral to 3mg at night. Trial of Vraylar 1.5mg daily to be given adjunctively with invega sustenna injection. Last invega sustenna injection was less than one month ago. 2. Continue every 15 minute checks for safety. 3.? Encourage individual, group and milieu therapies. 4.? Encourage sober living treatment after discharge at the highest level of care to which he is willing to commit. 5.? Work with social work team to identify any possible residential options given some part of his issues seems to stem around homelessness. Involuntary Hold Information 96 Hour Hold: 96 Hour Involuntary Admission: No 96 Hour Hold Ending Date: 06/05/23 96 Hour Hold Ending Time: 20:37 Attestations U Medical Necessity Statement*: Inpatient hospitalization is medically necessary and the clinically appropriate intervention at this time. We will monitor and make medication changes as indicated. Likely length of stay 3-5 days. Coding Level of Care Code Acute Code for [facility] Fwd Diagnoses Acute psychosis F23 Suicidal ideation R45.851 Major depressive disorder, recurrent, severe with psychotic symptoms F33.3 Cannabis use disorder, moderate, in early remission, dependence F12.21 Nicotine dependence, unspecified, uncomplicated F17.200 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
[2023-06-28] MEDS: nicotine 4 mg lozenge MUCOUS MEM ×3 (13:45→18:09)
[2023-06-28 14:00] VITALS: BP 130/70; PULSE 68; RESP 18; TEMP 36.5; O2SAT 97
[2023-06-28] MEDS: hyDROXYzine 25 mg Capsule 50 MG PO (18:07)
[2023-06-28 19:45] VITALS: BP 131/77; PULSE 112; RESP 18; TEMP 37; O2SAT 94
[2023-06-29 06:00] VITALS: BP 125/71; PULSE 59; RESP 16; TEMP 36.7; O2SAT 95
[2023-06-29] MEDS: paliperidone ER 3 mg Tablet PO (08:03)
--- NOTE | 2023-06-29 08:04 | PC.NURSE ---
REFUSED SCHEDULED MIRALAX
[2023-06-29] MEDS: nicotine 4 mg lozenge MUCOUS MEM ×4 (12:44→20:06)
[2023-06-29 14:00] VITALS: BP 137/79; PULSE 82; RESP 15; TEMP 36.8; O2SAT 99
--- NOTE | 2023-06-29 15:59 | W.PM.NPUPNS ---
Subjective NPU Subjective: 28-year-old white male with a history of multiple inpatient hospitalizations with a diagnosis of schizophrenia admitted with suicidal ideation. The patient continued to hear voices. He reported that he continued to feel suspicious about his family. He had reported some depressed mood. He had continued to isolate himself spending much of the day in the room while not attending to group. He had required some prompting for hygiene. He reported a lack of overall motivation. He reported struggles with starting and completing projects. Mental Status Exam MSE Comments: This is an obese white male in hospital scrubs with limited grooming and poor eye contact. No abnormal involuntary motor movements except for psychomotor retardation. He was cooperative with exam in mild acute distress. Speech was decreased in rate and normal in volume. Mood described as okay. His affect remained subdued. Thought process was linear and organized. Thought content: Patient endorsed no suicidal thoughts and no homicidal thoughts. There was no overt delusions but still evidence of paranoia and ideas of being targeted by gangs. He denied any visual hallucinations but endorses auditory hallucinations. Attention and concentration were limited and memory appeared mostly reliable but were not formally tested. He is alert and oriented x3. Insight, judgment and impulse control is poor. Vitals/I&O/Wt Last Vital Signs Temp 98.2 F 06/29/23 14:00 Pulse 82 06/29/23 14:00 Resp 15 06/29/23 14:00 BP 137/79 06/29/23 14:00 Pulse Ox 99 06/29/23 14:00 O2 Del Method Room Air 06/29/23 06:00 Weight last 48 hrs Weight 128.026 kg Data NPU 06/24/23 01:50 06/24/23 01:50 A&P Assessment and plan (1) Acute psychosis: (2) Suicidal ideation: (3) Major depressive disorder, recurrent, severe with psychotic symptoms: (4) Cannabis use disorder, moderate, in early remission, dependence: (5) Nicotine dependence, unspecified, uncomplicated: (6) Cluster A personality disorder in adult: (7) Generalized anxiety disorder: Plan This is a 28-year-old white male well known to the neuropsychiatric unit with known history of depression, psychosis, addiction and residential instability who presents less than a month since his last hospitalization here off his medication for a few days reportedly feeling overwhelmed with suicidal ideation along with active psychosis. 1.? Initiate Vraylar 1.5mg daily to be given adjunctively with invega sustenna injection. Last invega sustenna injection was less than one month ago. 2. Continue every 15 minute checks for safety. 3.? Encourage individual, group and milieu therapies. 4.? Encourage sober living treatment after discharge at the highest level of care to which he is willing to commit. 5.? Work with social work team to identify any possible residential options given some part of his issues seems to stem around homelessness. Involuntary Hold Information 96 Hour Hold: 96 Hour Involuntary Admission: No 96 Hour Hold Ending Date: 06/05/23 96 Hour Hold Ending Time: 20:37 Attestations NPU Medical Necessity Statement*: Inpatient hospitalization is medically necessary and the clinically appropriate intervention at this time. We will monitor and make medication changes as indicated. The patient's likely length of stay 3-5 days. Coding Level of Care Code Acute Code for [facility] Fwd Diagnoses Acute psychosis F23 Suicidal ideation R45.851 Major depressive disorder, recurrent, severe with psychotic symptoms F33.3 Cannabis use disorder, moderate, in early remission, dependence F12.21 Nicotine dependence, unspecified, uncomplicated F17.200 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
[2023-06-29 19:54] VITALS: BP 122/67; PULSE 69; RESP 16; TEMP 36.8; O2SAT 97
[2023-06-29] MEDS: hyDROXYzine 25 mg Capsule 50 MG PO (20:06)
[2023-06-30 06:00] VITALS: BP 102/58; PULSE 82; RESP 16; TEMP 36.4; O2SAT 97
[2023-06-30 10:38] LABS: Free T4 Free Thyroxine 1.19 ng/dL (0.82-1.77)
[2023-06-30] MEDS: nicotine 4 mg lozenge MUCOUS MEM ×5 (10:54→20:41)
[2023-06-30 13:12] VITALS: BP 135/84; PULSE 93; RESP 18; TEMP 36.9; O2SAT 96
--- NOTE | 2023-06-30 17:33 | W.PM.NPUPNS ---
Subjective NPU Subjective: 28-year-old white male with a history of multiple inpatient hospitalizations with a diagnosis of schizophrenia admitted with suicidal ideation. The patient had attended groups today. He continued to report having some fleeting suicidal thoughts. He had continued to isolate himself on the milieu and struggled with completion of activities of daily living without prompting. The patient continue to report hearing voices and reported continued paranoia. Mental Status Exam MSE Comments: This is an obese white male in hospital scrubs with limited grooming and poor eye contact. No abnormal involuntary motor movements except for psychomotor retardation. He was cooperative with exam in no acute distress. Speech was decreased in rate and normal in volume with some thought blocking noted. Mood described as all right. His affect remained subdued. Thought process was linear and organized. Thought content: Patient endorsed fleeting suicidal thoughts and no homicidal thoughts. There was no overt delusions but still evidence of paranoia. He denied any visual hallucinations but endorses auditory hallucinations. Attention and concentration were limited and memory appeared mostly reliable but were not formally tested. He is alert and oriented x3. Insight, judgment and impulse control is poor. Vitals/I&O/Wt Last Vital Signs Temp 98.4 F 06/30/23 13:12 Pulse 93 06/30/23 13:12 Resp 18 06/30/23 13:12 BP 135/84 06/30/23 13:12 Pulse Ox 96 06/30/23 13:12 O2 Del Method Room Air 06/30/23 06:00 Data NPU 06/24/23 01:50 06/24/23 01:50 A&P Assessment and plan (1) Acute psychosis: (2) Suicidal ideation: (3) Major depressive disorder, recurrent, severe with psychotic symptoms: (4) Cannabis use disorder, moderate, in early remission, dependence: (5) Nicotine dependence, unspecified, uncomplicated: (6) Cluster A personality disorder in adult: (7) Generalized anxiety disorder: Plan This is a 28-year-old white male well known to the neuropsychiatric unit with known history of depression, psychosis, addiction and residential instability who presents less than a month since his last hospitalization here off his medication for a few days reportedly feeling overwhelmed with suicidal ideation along with active psychosis. 1.? Increase Vraylar 3mg daily to be given adjunctively with invega sustenna injection. Next invega sustenna injection is scheduled in 10 days. 2. Continue every 15 minute checks for safety. 3.? Encourage individual, group and milieu therapies. 4.? Encourage sober living treatment after discharge at the highest level of care to which he is willing to commit. 5.? Work with social work team to identify any possible residential options given some part of his issues seems to stem around homelessness. Involuntary Hold Information 96 Hour Hold: 96 Hour Involuntary Admission: No 96 Hour Hold Ending Date: 06/05/23 96 Hour Hold Ending Time: 20:37 Attestations NPU Medical Necessity Statement*: Inpatient hospitalization is medically necessary and the clinically appropriate intervention at this time. We will monitor and make medication changes as indicated. The patient's likely length of stay 3-5 days. Coding Level of Care Code Acute Code for [facility] Fwd Diagnoses Acute psychosis F23 Suicidal ideation R45.851 Major depressive disorder, recurrent, severe with psychotic symptoms F33.3 Cannabis use disorder, moderate, in early remission, dependence F12.21 Nicotine dependence, unspecified, uncomplicated F17.200 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
[2023-06-30 19:58] VITALS: BP 150/82; PULSE 99; RESP 16; TEMP 36.9; O2SAT 96
[2023-07-01 06:00] VITALS: BP 115/65; PULSE 76; RESP 16; TEMP 36.5; O2SAT 97
[2023-07-01] MEDS: nicotine 4 mg lozenge MUCOUS MEM ×3 (08:50→20:15)
[2023-07-01 10:09] LABS: T4 Total 7.4 mcg/dL (4.9-10.5)
[2023-07-01 14:00] VITALS: BP 154/74; PULSE 72; RESP 16; TEMP 36.9; O2SAT 95
--- NOTE | 2023-07-01 16:51 | P.NPUPN_ITS ---
Subjective NPU Subjective: 28-year-old white male with a history of multiple inpatient hospitalizations with a diagnosis of schizophrenia admitted with suicidal ideation. The patient had continued to express anxiety about going back to the tent. He reported that he had continued to hear the voice around him despite no one being there. He had reported continued paranoia as if someone was trying to hurt him. He had reported that he felt anxious about the potential anticipation of a future discharge. Staff notes the patient can continue to appear to require significant prompting to leave his room. He had been unable to tolerate being in groups for an extended period of time. He had endorsed some level of ho pelessness. He stated that he did not wish to have any conversation with his family any longer. He reported continued low energy. He had acknowledged continuing to feel depressed at times. He reported no side effects from his medications at this time. Mental Status Exam MSE Comments: This is an obese white male in hospital scrubs with limited grooming and poor eye contact. No abnormal involuntary motor movements except for psychomotor retardation. He was cooperative with exam in no acute distress. Speech was decreased in rate and normal in volume with some thought blocking noted. Mood described as okay. His affect remained subdued. Thought process was linear and organized. Thought content: Patient endorsed fleeting suicidal thoughts and no homicidal thoughts. There was no overt delusions but still evidence of paranoia. He denied any visual hallucinations but endorses auditory h allucinations. Attention and concentration were limited and memory appeared mostly reliable but were not formally tested. He is alert and oriented x3. Insight, judgment and impulse control is poor. Vitals/I&O/Wt Last Vital Signs Temp 98.5 F 07/01/23 14:00 Pulse 72 07/01/23 14:00 Resp 16 07/01/23 14:00 BP 154/74 07/01/23 14:00 Pulse Ox 95 07/01/23 14:00 O2 Del Method Room Air 07/01/23 14:00 Data NPU 06/24/23 01:50 06/24/23 01:50 A&P Assessment and plan (1) Acute psychosis: (2) Suicidal ideation: (3) Major depressive disorder, recurrent, severe with psychotic symptoms: (4) Cannabis use disorder, moderate, in early remission, dependence: (5) Nicotine dependence, unspecified, uncomplicated: (6) Cluster A personality disorder in adult: (7) Generalized anxiety disorder: Plan This is a 28-year-old white male well known to the neuropsychiatric unit with known history of depression, psychosis, addiction and residential instability who presents less than a month since his last hospitalization here off his medication for a few days reportedly feeling overwhelmed with suicidal ideation along with active psychosis. 1.? Continue Vraylar 3mg daily to be given adjunctively with invega sustenna injection. Next invega sustenna injection is scheduled in 10 days. 2. Continue every 15 minute checks for safety. 3.? Encourage individual, group and milieu therapies. 4.? Encourage sober living treatment after discharge at the highest level of care to which he is willing to commit. 5.? Work with social work team to identify any possible residential options given some part of his issues seems to stem around homelessness. Involuntary Hold Information 2 96 Hour Hold: 96 Hour Involuntary Admission: No 96 Hour Hold Ending Date: 06/05/23 96 Hour Hold Ending Time: 20:37 Attestations NPU Medical Necessity Statement*: Inpatient hospitalization is medically necessary and the clinically appropriate intervention at this time. We will monitor and make medication changes as indicated. The patient's likely length of stay 3-5 days. Coding Level of Care Code Acute Code for [facility] Fwd Diagnoses Acute psychosis F23 Suicidal ideation R45.851 Major depressive disorder, recurrent, severe with psychotic symptoms F33.3 Cannabis use disorder, moderate, in early remission, dependence F12.21 Nicotine dependence, unspecified, uncomplicated F17.200 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
[2023-07-01] MEDS: hyDROXYzine 25 mg Capsule 50 MG PO (20:15)
[2023-07-01] MEDS: trazodone 50 mg Tablet PO (20:15)
[2023-07-01 20:37] VITALS: BP 126/73; PULSE 80; RESP 15; TEMP 36.6; O2SAT 97
[2023-07-02 06:00] VITALS: BP 107/57; PULSE 56; RESP 16; TEMP 36.3; O2SAT 97
--- NOTE | 2023-07-02 08:48 | PC.NURSE ---
During morning assessment, patient reported anxiety 9/10 and depression 8/10. When asked about cause of anxiety and depression, patient stated the future . This nurse attempted to talk with patient about living in the present moment. MADELINE Robles SI, AVH.
[2023-07-02] MEDS: nicotine 4 mg lozenge MUCOUS MEM ×3 (12:38→19:34)
[2023-07-02 14:00] VITALS: BP 120/69; PULSE 63; RESP 18; TEMP 36.8; O2SAT 96
--- NOTE | 2023-07-02 17:09 | W.PM.NPUPNS ---
Subjective NPU Subjective: 28-year-old white male with a history of multiple inpatient hospitalizations with a diagnosis of schizophrenia admitted with suicidal ideation. The patient had reported feeling a little better today. He had reported some reduction in anxiety. He had been more social and showed improvement in regards to self-care without any prompting to complete activities of daily living. Patient had reported no suicidal thoughts today. He had also reported feeling less paranoid. Mental Status Exam MSE Comments: This is an obese white male in hospital scrubs with limited grooming and poor eye contact. No abnormal involuntary motor movements except for psychomotor retardation. He was cooperative with exam in no acute distress. Speech was decreased in rate and normal in volume with less thought blocking noted. Mood described as good. His affect appeared less flat. Thought process was linear and organized. Thought content: Patient endorsed fleeting suicidal thoughts and no homicidal thoughts. There was no overt delusions but still evidence of paranoia. He denied any auditory or visual hallucinations today. Attention was fair. His recent and remote memory remained poor. He is alert and oriented x3. Insight was partial. judgment and impulse control were improving. Vitals/I&O/Wt Last Vital Signs Temp 98.3 F 07/02/23 14:00 Pulse 63 07/02/23 14:00 Resp 18 07/02/23 14:00 BP 120/69 07/02/23 14:00 Pulse Ox 96 07/02/23 14:00 O2 Del Method Room Air 07/02/23 06:00 Data NPU 06/24/23 01:50 06/24/23 01:50 A&P Assessment and plan (1) Acute psychosis: (2) Suicidal ideation: (3) Major depressive disorder, recurrent, severe with psychotic symptoms: (4) Cannabis use disorder, moderate, in early remission, dependence: (5) Nicotine dependence, unspecified, uncomplicated: (6) Cluster A personality disorder in adult: (7) Generalized anxiety disorder: Plan This is a 28-year-old white male well known to the neuropsychiatric unit with known history of depression, psychosis, addiction and residential instability who presents less than a month since his last hospitalization here off his medication for a few days reportedly feeling overwhelmed with suicidal ideation along with active psychosis. 1.? Continue Vraylar 3mg daily to be given adjunctively with invega sustenna injection. Next invega sustenna injection is scheduled on July 07, 2023. 2. Continue every 15 minute checks for safety. 3.? Encourage individual, group and milieu therapies. 4.? Encourage sober living treatment after discharge at the highest level of care to which he is willing to commit. 5.? Work with social work team to identify any possible residential options given some part of his issues seems to stem around homelessness. Involuntary Hold Information 96 Hour Hold: 96 Hour Involuntary Admission: No 96 Hour Hold Ending Date: 06/05/23 96 Hour Hold Ending Time: 20:37 Attestations NPU Medical Necessity Statement*: Inpatient hospitalization is medically necessary and the clinically appropriate intervention at this time. We will monitor and make medication changes as indicated. The patient's likely length of stay 1-2 days. Coding Level of Care Code Acute Code for [facility] Fwd Diagnoses Acute psychosis F23 Suicidal ideation R45.851 Major depressive disorder, recurrent, severe with psychotic symptoms F33.3 Cannabis use disorder, moderate, in early remission, dependence F12.21 Nicotine dependence, unspecified, uncomplicated F17.200 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
[2023-07-02] MEDS: trazodone 50 mg Tablet PO (20:26)
[2023-07-02 20:34] VITALS: BP 144/90; PULSE 100; RESP 18; TEMP 36.9; O2SAT 97
[2023-07-03 06:00] VITALS: BP 122/67; PULSE 64; RESP 18; TEMP 36.5; O2SAT 95
--- NOTE | 2023-07-03 11:54 | P.NPUDS_ITS ---
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 Patient presents to the ER via EMS stating he is having suicidal ideation and has a plan to take something sharp and cut his wrist.? Patient states he feels like he is feeling paranoid and having racing thoughts.? He cannot take the stress anymore.? He is afraid that someone is going to kidnap him. He was admitted to the neuropsychiatric unit for definitive treatment of those issues.? He presents today with his 6 hospitalization since December.? He has had limited outpatient treatment.? He did not make his 06/22/2023 outpatient psychiatric valuation and it is unclear whether he maintained the necessary appointments for the [facility] program.? An excerpt of his previous hospitalization is included below for context and the lack of substantive changes.? He presents today much like he has in the past hospitalizations reporting some timeframe of nonadherence to medication, homelessness and some other stressor.? He denies major changes since his last stay reporting that he had been staying down at [facility] trying to work on his issues.? He can give no clarity to what seems to be well plans made in the hospital.? We discussed having concerns that he may need some kind of guardian.? He denies significant recent addiction issues and his UDS was only positive for cannabis.? We agreed that this ticket writer would look through his medications and try to get a sense of how consistent he has been with the medication to understand if any change is necessary.? He endorsed a willingness to work with us towards some better outcome.? We discussed the risks, benefits alternatives of restarting his medications as he reports them.? And he understood agreed to proceed as is documented in this note. Per his 06/10/2023 [facility] inpatient psychiatric discharge summary: Discharge Diagnosis (1) Suicidal ideation: ? ? ? Status: Acute (2) Schizophrenia: ? ? ? Status: Acute Reason for Visit Reason for Visit: ? si? Brief History: History of Present Illness Braulio Terrazas is a 28 year old male with history of schizophrenia who presented to the emergency department after he had endorsed having increased paranoia while reporting that he feels that there has been a curse on his street that was associated with sex trafficking.? He had reported not having thoughts of hurting others but states that he has been having more suicidal thoughts.? The patient had reported that he has been homeless for several days.? He had reported that he had not had his Invega shot in the past 2 months with the recent reemergence of increased depression and increased confusion as he states that he has a hard time with knowing the difference in regards to reality.? He had endorsed having auditory hallucinations. Past Psychiatric History: 5 previous psychiatric admissions in 2022 at [facility] with multiple other hospitalizations in [place] as well.? He had reported a history of multiple medication trials. Family History: Father had depression and alcoholism, a brother could possibly be bipolar, Past Medical History: Denies current medical issues. Current Medications: Invega 234mg/IM, thiamine, Substance Use History: Inhalants: Started age 89 years old huffing gasoline, he still coughs on occasion and last used 2 years ago at age 23 which is a little late for puffers as they tend to stop in their teenage years. Alcohol: Started age [age] years old, for a few years he was drinking a 12 pack a day, now he drinks 6 or 7 beers once a week and a few beers on other nights. Marijuana: Started age [age] years old has been a consistent user periods in his life Nicotine: Currently up 3 to 5 mg a day, started smoking cigarettes when he picked him up from his mother's ashtray at age 79 years old. Other: He says he has used other pills in the past including some opiates, muscle relaxers, amphetamines but nothing consistent. Legal history: None reported history: None Social History: He denies ever being or ever having kids.? He did graduate high school in [place], he is currently homeless and reports having limited contact with his family.? He had reported the use of illicit substances as an adolescent including huffing.? He had denied any history of childhood trauma.? He currently is unemployed and was living in [facility]. Discharge Summary from 03/27/2023 NPU SI, ETOH on board? Brief History: Braulio Terrazas is a 28 year old male who presented to the emergency department with the following report: Chief Complaint: Psychiatric Symptoms Stated Complaint: SI, ETOH on board Time Seen by Provider: 03/22/23 03:06 Source: patient Mode of arrival: EMS Limitations: no limitations History of Present Illness: ? Patient is a 28-year-old male who presents to ED today via EMS for evaluation and treatment of suicidal ideations.? Patient tells me over the last 2 days he had been hanging with some friends when they abandoned him making him feel suicidal.? He has reportedly been drinking today.? He reports a recent hospi talization at [place] for suicidal ideations.? He was recently released a few days ago.? Patient has been seen at our facility multiple times for psychiatric complaints.? Patient states he has a plan to jump out in front of traffic.? Denies homicidal ideations. ? MD complaint: suicidal ideation and feels depressed Onset (ago): day(s) Duration: constant History of same: Yes Relieving factors: none Exacerbating factors: none Associated psychiatric symptoms: depression and suicidal ideation Associated symptoms: Reports depression and suicidal ideation If self harm: admits thoughts of self harm He was admitted to the neuropsychiatric unit for definitive treatment of those issues.? He presents today, well-known to this ticket writer from previous inpatient hospitalizations.? This is his fourth hospitalization at [facility] neuropsychiatric unit since December 06, 2022.? In that time he is also been at [place] in [place] at least 1 time.? Prior to that he had not been hospitalized since September 2021.? He presents today reporting a fairly hard to follow story with major concerns of whether it is real or delusional or made up.? He reports that he is in some friends were walking around with their shoes off.? That occasionally they would jog around.? Eventually reports at 1 point they started running and he could not keep up and they just kept running and left him.? He reports that he thought they were joking and would definitely return but they did not.? He reports that once they did not return so he really feeling bad about himself and questioning why they would do that.? He started feeling bad and left behind in having negative thoughts about himself.? He reports that he has been taking his medication which included Vistaril and Seroquel.? However he does endorse that he was hospitalized at [place] not too long ago and while there they did not continue his Invega.? However being on the injection it is unclear whether he was there during a time that he should have administer the injection.? He reports that he ended up at [place] because after discharging to [facility] from here back in February he started having problems with somebody living at [facility] as well.? He reports that with a mau that was being creepy. ? He reports that [facility] wanted him to leave because they took offense to his thoughts about this mau being creepy.? He reports that [facility] did not want him to return.? We discussed him possibly needing greater outpatient support.? We also discussed evaluating when he had his last Invega injection and considering restarting the Invega Sustenna injection and working on further residential stability and he understood and agreed to proceed as is documented in this note.? An excerpt of his last hospitalization February 2023 is included below for context given lack of substantive changes since then and his psychosocial reality as well as other history. Per his 02/18/2023 [facility] inpatient psychiatric discharge summary: Discharge Diagnosis (1) Acute psychosis: ? ? ? Status: Acute (2) Suicidal ideation: ? ? ? Status: Resolved (3) Major depressive disorder, recurrent, severe with psychotic symptoms: ? ? ? Status: Acute (4) Cannabis use disorder, moderate, in early remission, dependence: ? ? ? Status: Acute (5) Nicotine dependence, unspecified, uncomplicated: ? ? ? 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 ? ? Status: Acute (7) Generalized anxiety disorder: ? ? ? Status: Acute Reason for Visit Reason for Visit: ? SI? Brief History: History of Present Illness Braulio Terrazas is a 28 year old male recently discharged on 02/06/2023 from the neuropsychiatric unit directly to the [facility].? Patient has a history of psychotic disorder not otherwise specified and major depressive disorder along with polysubstance abuse.? He had reported that over the past 4 to 5 days while staying at [facility] he had felt that everyone was red in the face in that place .? He reports that he had felt that he was being held in a facility with a bunch of pedophiles .? He had endorsed that he had been having recurrent auditory hallucinations that have been getting worse.? He had reported that he has been sober without any alcohol or marijuana for several months.? He states that he had left the inpatient facility at [facility] and began walking outside and stated that he had wanted to walk in front of traffic with the intent to kill himself.? Patient reports that the police had arrived and had taken him to the emergency department for further evaluation.? He was admitted to the neuropsychiatric unit for further evaluation and treatment.? Per records, the repairing calibrator had indicated that the patient had made a threat to shoot them although he reported that he had no such thoughts of wanting to harm another person.? Previous documents indicate that the patient has received his Invega Sustenna intramuscular on February at the [facility] inpatient unit.? He reports that he has been feeling more depressed and endorses suicidal thoughts along with repeated hallucinations that are distracting for him.? He reports no substantial changes in his medication regimen or his history compared to his previous admission less than 10 days ago. That that is what I thought so he needs he needs a higher dose of that so I will not have to add a little bit of something to this much appreciated yet by Excerpt from 02/06/23 discharge summary at Neuropsychiatric unit. Brief History: History of Present Illness Braulio Terrazas is a 27 year old male to the emergency department with the following report: Chief Complaint: Psychiatric Symptoms Stated Complaint: SI Time Seen by Provider: 02/03/23 09:44 Source: patient Mode of arrival: ambulatory Limitations: no limitations History of Present Illness: ? Patient is a 27-year-old male who presents to ED today for evaluation of suicidal ideations.? Patient states he has felt suicidal for several days now.? He states he has a plan to run out in front of traffic.? Patient reportedly is at [facility] rehabilitation from alcohol abuse and he states many of the residents are causing him to feel suicidal.? He states it is a high stress/high emotion environment and he does not seem to be coping well.? He does report previous suicide attempts.? Patient states he was released from NPU approximately a month and a half ago.? He has been taking all of his psychiatric medications as prescribed. Reports hallucinations but states he has schizophrenia so these are chronic. ? MD complaint: suicidal ideation and feels depressed Onset (ago): day(s) Duration: constant History of same: Yes Context: significant life stressor Associated psychiatric symptoms: depression and suicidal ideation Associated symptoms: Reports auditory hallucinations, visual hallucinations, depression and suicidal ideation; Deny homicidal ideation Treatments prior to arrival: none If self harm: admits thoughts of self harm He was admitted to the neuropsychiatric unit for definitive treatment of those issues.? He presents today reporting that he is just feeling depressed.? He was just discharged from here 12/29/2022 and an excerpt of that discharge is included below for context and the fact that after he left here he went directly to [facility] and is now coming back from [facility].? He reports that he is near completion of the program and they are looking for options for him.? He acknowledged that probably some of the sadness of feeling overwhelmed has to do with the fact that he is homeless and they have not found a viable option for him at this point though they are fully prepared to receive him back at discharge from here.? We discussed the fact that his Prozac is only a 20 mg which is a fairly low-dose and discussed the risks, benefits and alternatives of increasing that to 40 mg and he understood and agreed to proceed as is documented in this note.? We discussed this hopefully being a short stay was an increase in his antidepressant and collaboration with [facility] for him to return when he is able to contract for safety. Hospital Course During the hospitalization, the patient had routine laboratory studies which were within normal limits except for a few outliers.? Additionally, there was a general medical evaluation which was also within normal limits and revealed no new acute processes.? At the time of discharge, lethality was denied and psychosis was resolving.? Mood and anxiety were well managed.? The patient endorsed a plan to avoid all drugs of abuse and follow up with the aftercare recommendations of the treatment team.? The patient was evaluated and deemed to be absent credible lethality and had achieved the maximum benefit from an inpatient hospitalization, and so was discharged.? 2 doses of Invega Sustenna at 234 mg and 156 mg respectively was given 5 days apart to the patient intramuscularly.? Patient was started back on Invega oral at 6 mg a day which would be tapered and discontinued over the next week.? He reported no side effects from his medications. Hospital Course Hospital Course During the hospitalization, the patient had routine laboratory studies which were within normal limits except for a few outliers.? Additionally, there was a general medical evaluation which was also within normal limits and revealed no new acute processes.? At the time of discharge, lethality was denied and psychosis was resolving.? Mood and anxiety were well managed.? The patient endorsed a plan to avoid all drugs of abuse and follow up with the aftercare recommendations of the treatment team.? The patient was evaluated and deemed to be absent credible lethality and had achieved the maximum benefit from an inpatient hospitalization, and so was discharged. The patient was initiated on Vraylar at 1.5 mg a day and titrated up to 3 mg a day with some improvement noted in regards to psychosis. Patient was to continue his Invega intramuscular along with the Vraylar together on an outpatient basis and he was agreeable to that on discharge. Involuntary Hold Information 96 Hour Hold: 96 Hour Involuntary Admission: No 96 Hour Hold Ending Date: 06/05/23 96 Hour Hold Ending Time: 20:37 Mental Status Exam MSE Comments: This is an obese white male in hospital scrubs with limited grooming and poor eye contact. No abnormal involuntary motor movements except for psychomotor retardation. He was cooperative with exam in no acute distress. Speech was normal in rate and normal in volume with no thought blocking noted. Mood described as okay. His affect appeared less restricted on discharge. Thought process was linear and organized. Thought content: Patient endorsed fleeting suicidal thoughts and no homicidal thoughts. There was no overt delusions but still evidence of paranoia. He denied any auditory or visual hallucinations today. Attention was fair. His recent and remote memory remained limited.. He is alert and oriented x3. Insight was partial. judgment and impulse control were improving. Discharge Data Studies Completed and Pending: Laboratory Results WBC 10.04 10^3/uL (3. 29-11.43) 06/24/23 01:50 RBC 4.81 10^6/uL (3.8 5-5.65) 06/24/23 01:50 Hgb 13.90 g/dL (11.27 -16.99) 06/24/23 01:50 Hct 42.7 % (37-53) 06/24/23 01:50 MCV 88.8 fl (82-101) 06/24/23 01:50 MCH 28.9 pg (27-33) 06/24/23 01:50 MCHC 32.6 g/dL (30-55) 06/24/23 01:50 RDW 12.7 % (12.1-15.1 ) 06/24/23 01:50 Plt Count 200 10^3/cmm (157 -399) 06/24/23 01:50 MPV 11.5 fL (7.4-10.4 ) H 06/24/23 01:50 Neut % (Auto) 62.7 % 06/24/23 01:50 Lymph % (Auto) 28.1 % 06/24/23 01:50 [place] % (Auto) 7.8 % 06/24/23 01:50 Eos % (Auto) 0.8 % 06/24/23 01:50 Baso % (Auto) 0.3 % 06/24/23 01:50 Neut # (Auto) 6.30 10^3/uL (1.8 -7.7) 06/24/23 01:50 Lymph # (Auto) 2.8 10^3/uL (0.8- 4.8) 06/24/23 01:50 [place] # (Auto) 0.8 10^3/uL (0.2- 0.9) 06/24/23 01:50 Eos # (Auto) 0.1 10^3/uL (0.0- 0.8) 06/24/23 01:50 Baso # (Auto) 0.0 10^3/uL (0.0- 0.1) 06/24/23 01:50 Nucleated RBC % (a uto) 0 % 06/24/23 01:50 Nucleated RBCs # 0.0 /100WBC 06/24/23 01:50 Sodium 141 mmol/L (136-1 45) 06/24/23 01:50 Potassium 4.2 mmol/L (3.5-5 .1) 06/24/23 01:50 Chloride 106 mmol/L (98-10 7) 06/24/23 01:50 Carbon Dioxide 27 mmol/L (22-29) 06/24/23 01:50 Anion Gap 12.2 (5-19) 06/24/23 01:50 BUN 7 mg/dL (6-20) 06/24/23 01:50 Creatinine 1.2 mg/dL (0.7-1. 2) 06/24/23 01:50 GFR Calculation 73.2 mL/min (90-1 30) L 06/24/23 01:50 Glucose 92 mg/dL (65-115) 06/24/23 01:50 Calculated Osmolal ity 290 mOsm/kg (285- 295) 06/24/23 01:50 Calcium 9.5 mg/dL (8.5-10 .5) 06/24/23 01:50 Total Bilirubin 0.2 mg/dL (0.15-1 .2) 06/24/23 01:50 AST 22 U/L (0-40) 06/24/23 01:50 ALT 34 U/L (0-41) 06/24/23 01:50 Alkaline Phosphata se 74 U/L (40-130) 06/24/23 01:50 Total Protein 7.2 g/dL (6.6-8.7 ) 06/24/23 01:50 Albumin 4.3 g/dL (3.5-5.2 ) 06/24/23 01:50 Globulin 2.9 g/dL (1.3-4.6 ) 06/24/23 01:50 Free T4 1.19 ng/dL (0.82- 1.77) 06/30/23 09:54 Thyroxine (T4) 7.4 mcg/dL (4.9-1 0.5) 06/30/23 09:54 Urine Color Yellow (Yellow) 06/24/23 01:46 Urine Appearance Clear (CLEAR) 06/24/23 01:46 Urine pH 6 (5-7) 06/24/23 01:46 Ur Specific Gravit y 1.020 (1.005-1.0 30) 06/24/23 01:46 Urine Protein Neg (Negative) 06/24/23 01:46 Urine Glucose (UA) Norm (Normal) 06/24/23 01:46 Urine Ketones Negative (Negati ve) 06/24/23 01:46 Urine Blood Neg (Negative) 06/24/23 01:46 Urine Nitrate Negative (Negati ve) 06/24/23 01:46 Urine Bilirubin Neg (Negative) 06/24/23 01:46 Urine Urobilinogen Neg mg/dL (Negati ve) 06/24/23 01:46 Ur Leukocyte Shante ase Negative (Negati ve) 06/24/23 01:46 Salicylates < 0.3 mg/dL (3-10 ) L 06/24/23 01:50 Urine Opiates Scre en Negative ng/mL (N egative) 06/24/23 01:46 Acetaminophen < 5.0 ug/mL (10-3 0) L 06/24/23 01:50 Ur Barbiturates Sc reen Negative ng/mL (N egative) 06/24/23 01:46 Ur Phencyclidine S crn Negative ng/mL (N egative) 06/24/23 01:46 Ur Amphetamines Sc reen Negative ng/mL (N egative) 06/24/23 01:46 U Benzodiazepines Scrn Negative ng/mL (N egative) 06/24/23 01:46 Urine Cocaine Scre en Negative ng/mL (N egative) 06/24/23 01:46 U Marijuana (THC) Screen Positive ng/mL (N egative) H 06/24/23 01:46 Ethyl Alcohol < 10 mg/dL (0-10) 06/24/23 01:50 Vitals: Last Vital Signs Temp 97.7 F 07/03/23 06:00 Pulse 64 07/03/23 06:00 Resp 18 07/03/23 06:00 BP 122/67 07/03/23 06:00 Pulse Ox 95 07/03/23 06:00 O2 Del Method Room Air 07/03/23 06:00 Discharge Plan Discharge Patient Disposition: Home Condition: Stable Prescriptions: New Vraylar 3 mg capsule 3 mg PO DAILY Qty: 30 1RF Vraylar 3 mg tablet 1 ea PO DAILY 30 Days Qty: 30 1RF Invega Sustenna 234 mg/1.5 mL syringe 234 mg IM Q30D Qty: 1.5 1RF Rx Instructions: Due on 07/07/23 Discontinued Invega Sustenna 234 mg/1.5 mL syringe 156 mg IM Q30D Qty: 1 1RF Rx Instructions: Take one IM every 28 days, next dose due 07/07/23 paliperidone [Invega] 3 mg tablet extended release 24 hr 3 mg PO DAILY Qty: 30 1RF Discharge Orders: Discharge Order (Routine); Ordered 07/03/23 Ordered By: Juaquin Cooney Referrals: Eli Sierra PMHNP [Staff Physician] - 07/08/23 11:30 am (07/08/23 at 1130 check in with Eli) Discharge Diet: Usual diet Discharge Activity: Resume usual activity Patient Instructions: Paliperidone (By mouth) (Invega), Cariprazine (By mouth) (Vraylar), Depression (DC), Opioid Safety, Suicidal Ideation Discharge Attestations NPU Time Spent in Discharge Care*: less than 30 min Coding Level of Care Code Acute Chg FW DC note Diagnoses Acute psychosis F23 Suicidal ideation R45.851 Major depressive disorder, recurrent, severe with psychotic symptoms F33.3 Cannabis use disorder, moderate, in early remission, dependence F12.21 Nicotine dependence, unspecified, uncomplicated F17.200 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
[2023-07-03 12:00] VITALS: BP 122/67; PULSE 64; RESP 18; TEMP 36.5; O2SAT 95
[2023-07-03] MEDS: nicotine 4 mg lozenge MUCOUS MEM (13:53)
== END 2023-07-03 15:35 | disposition home or self-care (01) | DRG 885 ==
LOC: ER 02:14 → NP 03:33
PROVIDERS: Admitting Provider Psychiatry & Neurology Psychiatry; Emergency Provider Emergency Medicine; Visit Provider Psychiatry & Neurology Psychiatry
DX: F20.9 Schizophrenia, unspecified (principal); R45.851 Suicidal ideations; Z59.00 Homelessness unspecified; F12.90 Cannabis use, unspecified, uncomplicated; F17.290 Nicotine dependence, other tobacco product, uncomplicated
CPT/HCPCS: 36415; 80053; 80306; 80307; 81003; 84436; 84439; 85025; 97150; 97165; 99285

== ENCOUNTER 2023-10-20 03:24 | Emergency (ER) | payer MEDICAID, SELFPAY ==
[2021-09-25 16:09] VITALS: BMI 39.9
[2023-10-20 03:24] VITALS: BMI 33.2
--- NOTE | 2023-10-20 03:27 | ECG_ITS ---
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 Measurements Intervals [place] Rate: 63 P: 23 WI: 162 QRS: 66 QRSD: 100 T: 45 QT: 390 QTc: 399 Interpretive Statements SINUS RHYTHM ST ELEVATION, PROBABLY EARLY REPOLARIZATION [ST ELEVATION WITH NORMALLY INFLECTED T-WAVE] Compared to ECG 06/01/2023 20:14:52 ST (T wave) deviation now present Early repolarization now present Electronically Signed On 10-20-2023 10:10:46 [employer] by Marsha Deutsch M.D. [id number]
--- NOTE | 2023-10-20 03:27 | XRR_ITS ---
PROCEDURE INFORMATION: Exam: XR Chest Exam date and time: 10/20/2023 3:42 AM Age: 28 years old Clinical indication: Other: Si; Additional info: Suicidal ideation TECHNIQUE: Imaging protocol: Radiologic exam of the chest. Views: 1 view. COMPARISON: No relevant prior studies available. FINDINGS: Lungs: Clear, symmetrically inflated lungs. Pleural spaces: No pleural effusion. No pneumothorax. Heart/Mediastinum: Cardiac silhouette is normal in size for technique. Bones/joints: Age appropriate. XR/XR chest 1V portable [id number] IMPRESSION: No acute cardiopulmonary abnormality.
[2023-10-20 03:46] LABS: Add Urine Microscopic? NO; Charge for UA Resulting for Rev
[2023-10-20 03:48] LABS: Basophils # 0.1 10^3/uL (0.0-0.1); Basophils % 0.5 %; Bilirubin Urine Neg (Negative); Blood Urine Neg (Negative); Eosinophils # 0.2 10^3/uL (0.0-0.8); Eosinophils % 1.4 %; Glucose Urine UA Norm (Normal); Hematocrit 47.3 % (37-53); Ketones Urine Negative (Negative); Leukocyte Esterase Urine Negative (Negative); Lymphocytes # 2.9 10^3/uL (0.8-4.8); Lymphocytes % 27.4 %; Mean Corpuscular HGB Conc 32.6 g/dL (30-55); Mean Corpuscular Hemoglobin 29.2 pg (27-33); Mean Corpuscular Volume 89.6 fl (82-101); Mean Platelet Volume 11.4 fL (7.4-10.4); Monocytes # 0.8 10^3/uL (0.2-0.9); Monocytes % 7.8 %; Neutrophils # 6.51 10^3/uL (1.8-7.7); Neutrophils % 62.5 %; Nitrate Urine Negative (Negative); Nucleated Red Blood Cells % 0 %; Platelet Count 201 10^3/cmm (157-399); Protein Urine Neg (Negative); Red Blood Count 5.28 10^6/uL (3.85-5.65); Red Cell Distribution Width 12.8 % (12.1-15.1); Specific Gravity, Urine 1.015 (1.005-1.030); Urine Appearance Clear (CLEAR); Urine Color Yellow (Yellow); Urobilinogen Urine Norm (Negative); White Blood Count 10.41 10^3/uL (3.29-11.43); pH Urine 6 (5-7)
--- NOTE | 2023-10-20 03:51 | ED.C_ITS ---
HPI - Psych 2 General: Chief Complaint: Psychiatric Symptoms Stated Complaint: SI Time Seen by Provider: 10/20/23 03:27 History of Present Illness: Patient presents to the ER with suicidal ideation. Patient says he got stressed out today and has a plan to kill himself by walking out into traffic. Patient says he has had multiple admissions inpatient for similar episodes in the past. Patient was informed we do not have any beds here at this time and he was okay with getting it sent somewhere else. Patient is voluntary. Review of Systems 2 General: Reports: 10 or more systems reviewed and unremarkable except in HPI and below PFSH ED 2 PFSH: Medical History Psychiatric care Major depressive disorder, recurrent severe without psychotic features Social History Smoking and tobacco/nicotine status: current every day tobacco/nicotine user e- cigarettes E-Cigarette Details: vaporizer device and with nicotine E-cig/vape details: 5 mg/Day Quit status (tobacco/nicotine): considering quitting Second hand smoke exposure: No Current gender identity: Male Physical Exam 2 Const: COMMON NORMALS: no acute distress, average body habitus, patient oriented x3, no limitations, healthy appearing, alert and well nourished HENMT: COMMON NORMALS: normocephalic, atraumatic, hearing grossly normal bilaterally, external ears normal, Normal external nose present, moist oral mucous membranes and oropharynx normal HEAD & SCALP: normocephalic and atraumatic NOSE: Normal external nose present EXTERNAL EAR: Yes external ears normal Neck/C-Spine: COMMON NORMALS: full ROM, no lymphadenopathy, supple, no meningeal signs, no JVD and Thyroid normal THYROID: Thyroid normal Chest: COMMONS NORMALS: normal inspection of the chest and normal palpation of entire chest wall Resp: COMMON NORMALS: normal respiratory effort, No retractions, No use of accessory muscles and clear to auscultation bilaterally AUSCULTATION: clear to auscultation bilaterally Cardio: COMMON NORMALS: no JVD, regular rate, regular rhythm, S1 normal heart sound present, S2 normal heart sound present, No gallops present (Cardio), No clicks present (Cardio), No murmurs present (Cardio) and No rub (Cardio) R ATE: regular rate RHYTHM: regular rhythm HEART SOUNDS: S1 normal heart sound present and S2 normal heart sound present GI: COMMON NORMALS: Normal to inspection, nondistended, normoactive bowel sounds present, Soft to palpation, non-tender, No hepatosplenomegaly present and no masses PALPATION: Yes Soft to palpation and Yes No hepatosplenomegaly present Neuro: COMMON NORMALS: patient oriented x3 SENSORIUM/ORIENTATION: Yes alert MENINGEAL SIGNS: Yes no meningeal signs MDM - Psych Medical Decision Making Patient presents to the ER with suicidal ideation. Patient will be medically cleared in the normal psychiatric fashion. Once cleared anticipate patient will be transferred to an appropriate psychiatric facility. Dr Johnson at [facility] excepted for transfer Differential Diagnosis Likely suicidal ideation Medical Records I reviewed the patient's medical records. Lab Data I reviewed the patient's lab results. 10/20/23 03:36 10/20/23 03:36 Radiology Impressions Chest X-Ray 10/20/23 03:27 IMPRESSION: No acute cardiopulmonary abnormality. Laboratory Results WBC 10.41 10^3/uL (3.29-11.43) 10/20/23 03:36 RBC 5.28 10^6/uL (3.85-5.65) 10/20/23 03:36 Hgb 15.40 g/dL (11.27-16.99) 10/20/23 03:36 Hct 47.3 % (37-53) 10/20/23 03:36 MCV 89.6 fl (82-101) 10/20/23 03:36 MCH 29.2 pg (27-33) 10/20/23 03:36 MCHC 32.6 g/dL (30-55) 10/20/23 03:36 RDW 12.8 % (12.1-15.1) 10/20/23 03:36 Plt Count 201 10^3/cmm (157-399) 10/20/23 03:36 MPV 11.4 fL (7.4-10.4) H 10/20/23 03:36 Neut % (Auto) 62.5 % 10/20/23 03:36 Lymph % (Auto) 27.4 % 10/20/23 03:36 [place] % (Auto) 7.8 % 10/20/23 03:36 Eos % (Auto) 1.4 % 10/20/23 03:36 Baso % (Auto) 0.5 % 10/20/23 03:36 Neut # (Auto) 6.51 10^3/uL (1.8-7.7) 10/20/23 03:36 Lymph # (Auto) 2.9 10^3/uL (0.8-4.8) 10/20/23 03:36 [place] # (Auto) 0.8 10^3/uL (0.2-0.9) 10/20/23 03:36 Eos # (Auto) 0.2 10^3/uL (0.0-0.8) 10/20/23 03:36 Baso # (Auto) 0.1 10^3/uL (0.0-0.1) 10/20/23 03:36 Nucleated RBC % (auto) 0 % 10/20/23 03:36 Nucleated RBCs # 0.0 /100WBC 10/20/23 03:36 Sodium 139 mmol/L (136-145) 10/20/23 03:36 Potassium 3.7 mmol/L (3.5-5.1) 10/20/23 03:36 Chloride 100 mmol/L (98-107) 10/20/23 03:36 Carbon Dioxide 27 mmol/L (22-29) 10/20/23 03:36 Anion Gap 15.7 (5-19) 10/20/23 03:36 BUN 7 mg/dL (6-20) 10/20/23 03:36 Creatinine 0.7 mg/dL (0.7-1.2) 10/20/23 03:36 GFR Calculation 136.3 mL/min (90-130) H 10/20/23 03:36 Glucose 93 mg/dL (65-115) 10/20/23 03:36 Calculated Osmolality 286 mOsm/kg (285-295) 10/20/23 03:36 Calcium 9.4 mg/dL (8.5-10.5) 10/20/23 03:36 Total Bilirubin 0.3 mg/dL (0.15-1.2) 10/20/23 03:36 AST 19 U/L (0-40) 10/20/23 03:36 ALT 28 U/L (0-41) 10/20/23 03:36 Alkaline Phosphatase 87 U/L (40-130) 10/20/23 03:36 Total Protein 7.7 g/dL (6.6-8.7) 10/20/23 03:36 Albumin 4.4 g/dL (3.5-5.2) 10/20/23 03:36 Globulin 3.3 g/dL (1.3-4.6) 10/20/23 03:36 TSH 4.03 uIU/mL (0.27-4.20) 10/20/23 03:36 Urine Color Yellow (Yellow) 10/20/23 03:36 Urine Appearance Clear (CLEAR) 10/20/23 03:36 Urine pH 6 (5-7) 10/20/23 03:36 Ur Specific [place] 1.015 (1.005-1.030) 10/20/23 03:36 Urine Protein Neg (Negative) 10/20/23 03:36 Urine Glucose (UA) Norm (Normal) 10/20/23 03:36 Urine Ketones Negative (Negative) 10/20/23 03:36 Urine Blood Neg (Negative) 10/20/23 03:36 Urine Nitrate Negative (Negative) 10/20/23 03:36 Urine Bilirubin Neg (Negative) 10/20/23 03:36 Urine Urobilinogen Norm mg/dL (Negative) 10/20/23 03:36 Ur Leukocyte Esterase Negative (Negative) 10/20/23 03:36 Salicylates < 0.3 mg/dL (3-10) L 10/20/23 03:36 Urine Opiates Screen Negative ng/mL (Negative) 10/20/23 03:36 Acetaminophen < 5.0 ug/mL (10-30) L 10/20/23 03:36 Ur Barbiturates Screen Negative ng/mL (Negative) 10/20/23 03:36 Ur Phencyclidine Scrn Negative ng/mL (Negative) 10/20/23 03:36 Ur Amphetamines Screen Negative ng/mL (Negative) 10/20/23 03:36 U Benzodiazepines Scrn Negative ng/mL (Negative) 10/20/23 03:36 Urine Cocaine Screen Negative ng/mL (Negative) 10/20/23 03:36 U Marijuana (THC) Screen Positive ng/mL (Negative) H 10/20/23 03:36 Ethyl Alcohol < 10 mg/dL (0-10) 10/20/23 03:36 Influenza Type A Ag negative (Negative) 10/20/23 03:36 Influenza Type B Ag negative (Negative) 10/20/23 03:36 SARS-CoV-2 Ag (Rapid) negative (Negative) 10/20/23 03:36 All radiology interpretation(s) finalized by discharge Discharge Plan Discharge Patient Disposition: Xfer Psychiatric Hosp Clinical Impression: Suicidal ideation Condition: Stable Coding Level of Care Code ED Wound Specialist for Eric Glover
[2023-10-20 03:57] LABS: Amphetamines Screen Urine Negative (Negative); Barbiturates Screen Urine Negative (Negative); Benzodiazepines Screen Urine Negative (Negative); Cocaine Screen Urine Negative (Negative); Opiate Screen Urine Negative (Negative); PCP Screen Urine Negative (Negative); THC Screen Urine Positive (Negative)
[2023-10-20 04:04] LABS: Influenza A by IFA negative (Negative); Influenza B by IFA negative (Negative); SARS Covid-2 Antigen negative (Negative)
[2023-10-20 04:11] LABS: Acetaminophen < 5.0 ug/mL (10-30); Alanine Aminotransferase 28 U/L (0-41); Albumin Level 4.4 g/dL (3.5-5.2); Alcohol Level < 10 mg/dL (0-10); Alkaline Phosphatase 87 U/L (40-130); Anion Gap 15.7 (5-19); Aspartate Amino Transferase 19 U/L (0-40); Blood Urea Nitrogen 7 mg/dL (6-20); Calcium 9.4 mg/dL (8.5-10.5); Carbon Dioxide 27 mmol/L (22-29); Chloride 100 mmol/L (98-107); Globulin 3.3 g/dL (1.3-4.6); Glomerular Filtration Rate 136.3 mL/min (90-130); Glucose 93 mg/dL (65-115); Osmolality Calculated 286 mOsm/kg (285-295); Potassium 3.7 mmol/L (3.5-5.1); Salicylate < 0.3 mg/dL (3-10); Sodium 139 mmol/L (136-145); Thyroid Stimulating Hormone 4.03 uIU/mL (0.27-4.20); Total Bilirubin 0.3 mg/dL (0.15-1.2); Total Protein 7.7 g/dL (6.6-8.7)
[2023-10-20 05:38] VITALS: BP 137/74; PULSE 67; RESP 18; TEMP 36.6; O2SAT 97
[2023-10-20 08:21] VITALS: BP 146/84; PULSE 79; RESP 18; O2SAT 96
== END 2023-10-20 08:22 ==
PROVIDERS: Emergency Provider Emergency Medicine
DX: R45.851 Suicidal ideations (principal)
CPT/HCPCS: 71045; 80053; 80306; 80307; 81003; 84443; 85025; 87426; 87804; 93005; 99285

== ENCOUNTER 2023-11-06 03:06 | Emergency (ER) | payer MEDICAID, SELFPAY ==
[2021-09-25 16:09] VITALS: BMI 39.9
[2023-11-06 03:06] VITALS: BMI 30.8
[2023-11-06 03:10] VITALS: BP 137/91; PULSE 95; RESP 16; TEMP 36.4; O2SAT 95
--- NOTE | 2023-11-06 03:22 | ED.C_ITS ---
Documented by User: Je Barboza DO 11/06/23 17:32 HPI - Psych 2 General: Chief Complaint: Psychiatric Symptoms Stated Complaint: si Time Seen by Provider: 11/06/23 03:08 History of Present Illness: Patient presents to the ER with complaints of suicidal ideation. Patient states he just wants to run out in traffic and kill himself. Patient is very vague about this and when I ask specific questions he says he just does not want to talk about the details. He has been treated inpatient several times and transferred out as well. During patient's last ER visit on 10/20 for suicidal ideation he was transferred to [place]. Review of Systems 2 General: Reports: 10 or more systems reviewed and unremarkable except in HPI and below PFSH ED 2 PFSH: Medical History Psychiatric care Major depressive disorder, recurrent severe without psychotic features Social History Smoking and tobacco/nicotine status: current every day tobacco/nicotine user e- cigarettes E-Cigarette Details: vaporizer device and with nicotine E-cig/vape details: 5 mg/Day Quit status (tobacco/nicotine): considering quitting Second hand smoke exposure: No Current gender identity: Male Physical Exam 2 Const: COMMON NORMALS: no acute distress, average body habitus, no limitations, healthy appearing, alert and well nourished HENMT: COMMON NORMALS: normocephalic, atraumatic, hearing grossly normal bilaterally, external ears normal, moist oral mucous membranes and oropharynx normal HEAD & SCALP: normocephalic and atraumatic EXTERNAL EAR: Yes external ears normal Neck/C-Spine: COMMON NORMALS: no JVD Chest: COMMONS NORMALS: normal inspection of the chest and normal palpation of entire chest wall Resp: COMMON NORMALS: normal respiratory effort, No retractions, No use of accessory muscles and clear to auscultation bilaterally AUSCULTATION: clear to auscultation bilaterally Cardio: COMMON NORMALS: no JVD, regular rate, regular rhythm, S1 normal heart sound present, S2 normal heart sound present, No gallops present (Cardio), No clicks present (Cardio), No murmurs present (Cardio) and No rub (Cardio) R ATE: regular rate RHYTHM: regular rhythm HEART SOUNDS: S1 normal heart sound present and S2 normal heart sound present GI: COMMON NORMALS: Normal to inspection, nondistended, normoactive bowel sounds present, Soft to palpation, non-tender, No hepatosplenomegaly present and no masses PALPATION: Yes Soft to palpation and Yes No hepatosplenomegaly present Neuro: SENSORIUM/ORIENTATION: Yes alert Course 2 Vital Signs: Vital signs: Vital Signs Temperature 97.5 F L 11/06/23 03:10 Pulse Rate 68 11/06/23 11:24 Respiratory Rate 16 11/06/23 11:24 Blood Pressure 114/71 11/06/23 11:24 Pulse Oximetry 96 11/06/23 11:24 Oxygen Delivery Me thod Room Air 11/06/23 11:24 MDM - Psych Medical Decision Making Patient had labs drawn. Once medical clearance was obtained Dr. Huntley was consulted who is very familiar with this patient. Dr. Huntley said he would think about what he wants us to do and call us back. Dr. Huntley as we are full and therefore he would need to be transferred out. Care assumed at change of shift. Patient is well behaved did not need any interventions. I did discuss with him briefly he stated he becomes suicidal due to his depression. Affidavit written we are still searching for a inpatient facility as we do not have any beds available. 11/06/2023 5:[address] Nguyen accepted at [facility] Differential Diagnosis Likely suicidal ideation Medical Records I reviewed the patient's medical records. Lab Data I reviewed the patient's lab results. 11/06/23 03:19 11/06/23 03:19 Radiology Impressions Chest X-Ray 11/06/23 05:12 IMPRESSION: No acute findings. Laboratory Results WBC 8.35 10^3/uL (3.29-11.43) 11/06/23 03:19 RBC 4.97 10^6/uL (3.85-5.65) 11/06/23 03:19 Hgb 14.50 g/dL (11.27-16.99) 11/06/23 03:19 Hct 42.6 % (37-53) 11/06/23 03:19 MCV 85.7 fl (82-101) 11/06/23 03:19 MCH 29.2 pg (27-33) 11/06/23 03:19 MCHC 34.0 g/dL (30-55) 11/06/23 03:19 RDW 12.5 % (12.1-15.1) 11/06/23 03:19 Plt Count 226 10^3/cmm (157-399) 11/06/23 03:19 MPV 10.6 fL (7.4-10.4) H 11/06/23 03:19 Neut % (Auto) 56.5 % 11/06/23 03:19 Lymph % (Auto) 34.3 % 11/06/23 03:19 [place] % (Auto) 6.3 % 11/06/23 03:19 Eos % (Auto) 1.8 % 11/06/23 03:19 Baso % (Auto) 0.6 % 11/06/23 03:19 Neut # (Auto) 4.72 10^3/uL (1.8-7.7) 11/06/23 03:19 Lymph # (Auto) 2.9 10^3/uL (0.8-4.8) 11/06/23 03:19 [place] # (Auto) 0.5 10^3/uL (0.2-0.9) 11/06/23 03:19 Eos # (Auto) 0.2 10^3/uL (0.0-0.8) 11/06/23 03:19 Baso # (Auto) 0.1 10^3/uL (0.0-0.1) 11/06/23 03:19 Nucleated RBC % (auto) 0 % 11/06/23 03:19 Nucleated RBCs # 0.0 /100WBC 11/06/23 03:19 Sodium 140 mmol/L (136-145) 11/06/23 03:19 Potassium 3.9 mmol/L (3.5-5.1) 11/06/23 03:19 Chloride 105 mmol/L (98-107) 11/06/23 03:19 Carbon Dioxide 23 mmol/L (22-29) 11/06/23 03:19 Anion Gap 15.9 (5-19) 11/06/23 03:19 BUN 6 mg/dL (6-20) 11/06/23 03:19 Creatinine 0.7 mg/dL (0.7-1.2) 11/06/23 03:19 GFR Calculation 136.3 mL/min (90-130) H 11/06/23 03:19 Glucose 116 mg/dL (65-115) H 11/06/23 03:19 Calculated Osmolality 289 mOsm/kg (285-295) 11/06/23 03:19 Calcium 9.4 mg/dL (8.5-10.5) 11/06/23 03:19 Total Bilirubin 0.2 mg/dL (0.15-1.2) 11/06/23 03:19 AST 28 U/L (0-40) 11/06/23 03:19 ALT 44 U/L (0-41) H 11/06/23 03:19 Alkaline Phosphatase 93 U/L (40-130) 11/06/23 03:19 Total Protein 7.3 g/dL (6.6-8.7) 11/06/23 03:19 Albumin 4.1 g/dL (3.5-5.2) 11/06/23 03:19 Globulin 3.2 g/dL (1.3-4.6) 11/06/23 03:19 TSH 2.59 uIU/mL (0.27-4.20) 11/06/23 03:19 Urine Color Light yellow (Yellow) 11/06/23 03:53 Urine Appearance Clear (CLEAR) 11/06/23 03:53 Urine pH 6 (5-7) 11/06/23 03:53 Ur Specific [place] 1.015 (1.005-1.030) 11/06/23 03:53 Urine Protein Neg (Negative) 11/06/23 03:53 Urine Glucose (UA) Norm (Normal) 11/06/23 03:53 Urine Ketones Negative (Negative) 11/06/23 03:53 Urine Blood Neg (Negative) 11/06/23 03:53 Urine Nitrate Negative (Negative) 11/06/23 03:53 Urine Bilirubin Neg (Negative) 11/06/23 03:53 Urine Urobilinogen Neg mg/dL (Negative) 11/06/23 03:53 Ur Leukocyte Esterase Negative (Negative) 11/06/23 03:53 Salicylates < 0.3 mg/dL (3-10) L 11/06/23 03:19 Urine Opiates Screen Negative ng/mL (Negative) 11/06/23 03:53 Acetaminophen < 5.0 ug/mL (10-30) L 11/06/23 03:19 Ur Barbiturates Screen Negative ng/mL (Negative) 11/06/23 03:53 Ur Phencyclidine Scrn Negative ng/mL (Negative) 11/06/23 03:53 Ur Amphetamines Screen Negative ng/mL (Negative) 11/06/23 03:53 U Benzodiazepines Scrn Negative ng/mL (Negative) 11/06/23 03:53 Urine Cocaine Screen Negative ng/mL (Negative) 11/06/23 03:53 U Marijuana (THC) Screen Positive ng/mL (Negative) H 11/06/23 03:53 Ethyl Alcohol 46 mg/dL (0-10) H 11/06/23 03:19 Influenza Type A Ag negative (Negative) 11/06/23 05:30 Influenza Type B Ag negative (Negative) 11/06/23 05:30 SARS-CoV-2 Ag (Rapid) negative (Negative) 11/06/23 05:30 All radiology interpretation(s) finalized by discharge EKG Data EKG 1: I personally reviewed and interpreted this EKG as follows: EKG interpretation date: 11/06/23 EKG interpretation time: 05:24 Prior EKG tracings: available for review Interpretation: Ventricular rate 70 bpm, [place] interval 158, QRS duration 102, QTc of 437, sinus rhythm Discharge Plan Discharge Patient Disposition: Xfer Psychiatric Hosp Clinical Impression: Suicidal ideation Condition: Stable Sign Out Sign Out Data: Patient Sign Out occurred on 11/06/23 at 06:00. Patient's care was discussed, and care was transferred from Je Barboza DO to Jaya Boateng DO. Coding Level of Care Code ED Secret Service Agent for Chg Fwd Documented by User: Jaya Boateng DO 11/06/23 17:22 HPI - Psych 2 General: Chief Complaint: Psychiatric Symptoms Stated Complaint: si Time Seen by Provider: 11/06/23 03:08 PFS ED 2 PFSH: Medical History Psychiatric care Major depressive disorder, recurrent severe without psychotic features Social History Smoking and tobacco/nicotine status: current every day tobacco/nicotine user e- cigarettes E-Cigarette Details: vaporizer device and with nicotine E-cig/vape details: 5 mg/Day Quit status (tobacco/nicotine): considering quitting Second hand smoke exposure: No Current gender identity: Male Course 2 Vital Signs: Vital signs: Vital Signs Temperature 97.5 F L 11/06/23 03:10 Pulse Rate 68 11/06/23 11:24 Respiratory Rate 16 11/06/23 11:24 Blood Pressure 114/71 11/06/23 11:24 Pulse Oximetry 96 11/06/23 11:24 Oxygen Delivery Me thod Room Air 11/06/23 11:24 MDM - Psych Medical Decision Making Patient had labs drawn. Once medical clearance was obtained Dr. Huntley was consulted who is very familiar with this patient. Dr. Huntley said he would think about what he wants us to do and call us back. Dr. Huntley as we are full and therefore he would need to be transferred out. Care assumed at change of shift. Patient is well behaved did not need any interventions. I did discuss with him briefly he stated he becomes suicidal due to his depression. Affidavit written we are still searching for a inpatient facility as we do not have any beds available. 11/06/2023 5:22 PM Lab Data 11/06/23 03:19 11/06/23 03:19 Radiology Impressions Chest X-Ray 11/06/23 05:12 IMPRESSION: No acute findings. Laboratory Results WBC 8.35 10^3/uL (3.29-11.43) 11/06/23 03:19 RBC 4.97 10^6/uL (3.85-5.65) 11/06/23 03:19 Hgb 14.50 g/dL (11.27-16.99) 11/06/23 03:19 Hct 42.6 % (37-53) 11/06/23 03:19 MCV 85.7 fl (82-101) 11/06/23 03:19 MCH 29.2 pg (27-33) 11/06/23 03:19 MCHC 34.0 g/dL (30-55) 11/06/23 03:19 RDW 12.5 % (12.1-15.1) 11/06/23 03:19 Plt Count 226 10^3/cmm (157-399) 11/06/23 03:19 MPV 10.6 fL (7.4-10.4) H 11/06/23 03:19 Neut % (Auto) 56.5 % 11/06/23 03:19 Lymph % (Auto) 34.3 % 11/06/23 03:19 [place] % (Auto) 6.3 % 11/06/23 03:19 Eos % (Auto) 1.8 % 11/06/23 03:19 Baso % (Auto) 0.6 % 11/06/23 03:19 Neut # (Auto) 4.72 10^3/uL (1.8-7.7) 11/06/23 03:19 Lymph # (Auto) 2.9 10^3/uL (0.8-4.8) 11/06/23 03:19 [place] # (Auto) 0.5 10^3/uL (0.2-0.9) 11/06/23 03:19 Eos # (Auto) 0.2 10^3/uL (0.0-0.8) 11/06/23 03:19 Baso # (Auto) 0.1 10^3/uL (0.0-0.1) 11/06/23 03:19 Nucleated RBC % (auto) 0 % 11/06/23 03:19 Nucleated RBCs # 0.0 /100WBC 11/06/23 03:19 Sodium 140 mmol/L (136-145) 11/06/23 03:19 Potassium 3.9 mmol/L (3.5-5.1) 11/06/23 03:19 Chloride 105 mmol/L (98-107) 11/06/23 03:19 Carbon Dioxide 23 mmol/L (22-29) 11/06/23 03:19 Anion Gap 15.9 (5-19) 11/06/23 03:19 BUN 6 mg/dL (6-20) 11/06/23 03:19 Creatinine 0.7 mg/dL (0.7-1.2) 11/06/23 03:19 GFR Calculation 136.3 mL/min (90-130) H 11/06/23 03:19 Glucose 116 mg/dL (65-115) H 11/06/23 03:19 Calculated Osmolality 289 mOsm/kg (285-295) 11/06/23 03:19 Calcium 9.4 mg/dL (8.5-10.5) 11/06/23 03:19 Total Bilirubin 0.2 mg/dL (0.15-1.2) 11/06/23 03:19 AST 28 U/L (0-40) 11/06/23 03:19 ALT 44 U/L (0-41) H 11/06/23 03:19 Alkaline Phosphatase 93 U/L (40-130) 11/06/23 03:19 Total Protein 7.3 g/dL (6.6-8.7) 11/06/23 03:19 Albumin 4.1 g/dL (3.5-5.2) 11/06/23 03:19 Globulin 3.2 g/dL (1.3-4.6) 11/06/23 03:19 TSH 2.59 uIU/mL (0.27-4.20) 11/06/23 03:19 Urine Color Light yellow (Yellow) 11/06/23 03:53 Urine Appearance Clear (CLEAR) 11/06/23 03:53 Urine pH 6 (5-7) 11/06/23 03:53 Ur Specific [place] 1.015 (1.005-1.030) 11/06/23 03:53 Urine Protein Neg (Negative) 11/06/23 03:53 Urine Glucose (UA) Norm (Normal) 11/06/23 03:53 Urine Ketones Negative (Negative) 11/06/23 03:53 Urine Blood Neg (Negative) 11/06/23 03:53 Urine Nitrate Negative (Negative) 11/06/23 03:53 Urine Bilirubin Neg (Negative) 11/06/23 03:53 Urine Urobilinogen Neg mg/dL (Negative) 11/06/23 03:53 Ur Leukocyte Esterase Negative (Negative) 11/06/23 03:53 Salicylates < 0.3 mg/dL (3-10) L 11/06/23 03:19 Urine Opiates Screen Negative ng/mL (Negative) 11/06/23 03:53 Acetaminophen < 5.0 ug/mL (10-30) L 11/06/23 03:19 Ur Barbiturates Screen Negative ng/mL (Negative) 11/06/23 03:53 Ur Phencyclidine Scrn Negative ng/mL (Negative) 11/06/23 03:53 Ur Amphetamines Screen Negative ng/mL (Negative) 11/06/23 03:53 U Benzodiazepines Scrn Negative ng/mL (Negative) 11/06/23 03:53 Urine Cocaine Screen Negative ng/mL (Negative) 11/06/23 03:53 U Marijuana (THC) Screen Positive ng/mL (Negative) H 11/06/23 03:53 Ethyl Alcohol 46 mg/dL (0-10) H 11/06/23 03:19 Influenza Type A Ag negative (Negative) 11/06/23 05:30 Influenza Type B Ag negative (Negative) 11/06/23 05:30 SARS-CoV-2 Ag (Rapid) negative (Negative) 11/06/23 05:30 Discharge Plan Discharge Patient Disposition: er Psychiatric Hosp Clinical Impression: Suicidal ideation Condition: Stable Sign Out Sign Out Data: Patient Sign Out occurred on 11/06/23 at 06:00. Patient's care was discussed, and care was transferred from Je Barboza DO to Jaya Boateng DO. Coding Level of Care Code ED Secret Service Agent for Eric Glover
[2023-11-06 03:23] LABS: Basophils # 0.1 10^3/uL (0.0-0.1); Basophils % 0.6 %; Eosinophils # 0.2 10^3/uL (0.0-0.8); Eosinophils % 1.8 %; Hematocrit 42.6 % (37-53); Lymphocytes # 2.9 10^3/uL (0.8-4.8); Lymphocytes % 34.3 %; Mean Corpuscular Hemoglobin 29.2 pg (27-33); Mean Corpuscular Volume 85.7 fl (82-101); Mean Platelet Volume 10.6 fL (7.4-10.4); Monocytes # 0.5 10^3/uL (0.2-0.9); Monocytes % 6.3 %; Neutrophils # 4.72 10^3/uL (1.8-7.7); Neutrophils % 56.5 %; Nucleated Red Blood Cells % 0 %; Platelet Count 226 10^3/cmm (157-399); Red Blood Count 4.97 10^6/uL (3.85-5.65); Red Cell Distribution Width 12.5 % (12.1-15.1); White Blood Count 8.35 10^3/uL (3.29-11.43)
[2023-11-06 03:42] LABS: Alanine Aminotransferase 44 U/L (0-41); Albumin Level 4.1 g/dL (3.5-5.2); Alcohol Level 46 mg/dL (0-10); Alkaline Phosphatase 93 U/L (40-130); Anion Gap 15.9 (5-19); Aspartate Amino Transferase 28 U/L (0-40); Blood Urea Nitrogen 6 mg/dL (6-20); Calcium 9.4 mg/dL (8.5-10.5); Carbon Dioxide 23 mmol/L (22-29); Chloride 105 mmol/L (98-107); Globulin 3.2 g/dL (1.3-4.6); Glomerular Filtration Rate 136.3 mL/min (90-130); Glucose 116 mg/dL (65-115); Osmolality Calculated 289 mOsm/kg (285-295); Potassium 3.9 mmol/L (3.5-5.1); Sodium 140 mmol/L (136-145); Total Bilirubin 0.2 mg/dL (0.15-1.2); Total Protein 7.3 g/dL (6.6-8.7)
[2023-11-06 03:43] LABS: Acetaminophen < 5.0 ug/mL (10-30); Salicylate < 0.3 mg/dL (3-10)
[2023-11-06 04:00] LABS: Add Urine Microscopic? NO; Charge for UA Resulting for Rev
[2023-11-06 04:03] LABS: Bilirubin Urine Neg (Negative); Blood Urine Neg (Negative); Glucose Urine UA Norm (Normal); Ketones Urine Negative (Negative); Leukocyte Esterase Urine Negative (Negative); Nitrate Urine Negative (Negative); Protein Urine Neg (Negative); Specific Gravity, Urine 1.015 (1.005-1.030); Urine Appearance Clear (CLEAR); Urine Color Light yellow (Yellow); Urobilinogen Urine Neg (Negative); pH Urine 6 (5-7)
[2023-11-06 04:11] LABS: Amphetamines Screen Urine Negative (Negative); Barbiturates Screen Urine Negative (Negative); Benzodiazepines Screen Urine Negative (Negative); Cocaine Screen Urine Negative (Negative); Opiate Screen Urine Negative (Negative); PCP Screen Urine Negative (Negative); THC Screen Urine Positive (Negative)
--- NOTE | 2023-11-06 05:12 | ECG_ITS ---
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 Measurements Intervals [place] Rate: 70 P: 17 [place]: 158 QRS: 68 QRSD: 102 T: 46 QT: 416 QTc: 450 Interpretive Statements SINUS RHYTHM ST ELEVATION PROBABLY EARLY REPOLARIZATION Electronically Signed On 11-07-2023 23:17:20 ELECTRONIC SENSING EQUIPMENT ASSEMBLER by Eric Subramanian M.D. [id number]
--- NOTE | 2023-11-06 05:12 | XRR_ITS ---
PROCEDURE INFORMATION: Exam: XR Chest Exam date and time: 11/06/2023 5:19 AM Age: 28 years old Clinical indication: Other: Si; Additional info: Suicidal ideation TECHNIQUE: Imaging protocol: Radiologic exam of the chest. Views: 1 view. COMPARISON: CR (CHEST, ) 10/20/2023 3:42 AM FINDINGS: Lungs: Unremarkable. No consolidation. Pleural spaces: Unremarkable. No pleural effusion. No pneumothorax. Heart/Mediastinum: Unremarkable. No cardiomegaly. Bones/joints: Unremarkable. XR/XR chest 1V portable [id number] IMPRESSION: No acute findings.
[2023-11-06 05:41] LABS: Thyroid Stimulating Hormone 2.59 uIU/mL (0.27-4.20)
[2023-11-06 06:02] LABS: Influenza A by IFA negative (Negative); Influenza B by IFA negative (Negative); SARS Covid-2 Antigen negative (Negative)
[2023-11-06 11:24] VITALS: BP 114/71; PULSE 68; RESP 16; O2SAT 96
--- NOTE | 2023-11-06 21:45 | PC.NURSE ---
Assumed care of pt at 2058 report from Rowan Saleh RN, pt report was called to receiving facility by off going nurse.
[2023-11-06 23:34] VITALS: BP 135/78; PULSE 71; TEMP 36.8; O2SAT 97
== END 2023-11-06 23:37 ==
PROVIDERS: Emergency Medicine; Emergency Provider Family Medicine
DX: R45.851 Suicidal ideations (principal); F17.290 Nicotine dependence, other tobacco product, uncomplicated; Z11.52 Encounter for screening for COVID-19
CPT/HCPCS: 71045; 80053; 80306; 80307; 81003; 84443; 85025; 87426; 87804; 93005; 99285

== ENCOUNTER → 2023-11-18 15:00 | Outpatient (BNVA) | payer OTHER, SELFPAY ==
[2021-09-25 16:09] VITALS: BMI 39.9
== END ==
PROVIDERS: Visit Provider Nurse Practitioner
DX: F20.1 Disorganized schizophrenia (principal); Z79.899 Other long term (current) drug therapy
CPT/HCPCS: 80061; 83036

== ENCOUNTER 2023-12-31 01:17 | Inpatient (IN) | payer SELFPAY ==
[2021-09-25 16:09] VITALS: BMI 39.9
[2023-12-31 01:17] VITALS: BP 135/84; PULSE 80; RESP 20; TEMP 37; O2SAT 96
--- NOTE | 2023-12-31 01:19 | ED.C_ITS ---
HPI - Psych 2 General: Chief Complaint: Psychiatric Symptoms Stated Complaint: SI Time Seen by Provider: 12/31/23 01:18 History of Present Illness: 28-year-old male presents emergency depa rtment with complaints that he is having suicidal ideations with active plan to cut his wrist for the previous 1 week. He states he is also thought about ending his life by jumping in front of a train. He states that he does have a history of schizoaffective disorder bipolar and depression and has had suicidal ideations. He states he does intermittently see things such as birds and hares that other people do not see. He states he has been taking his medications as prescribed. He states he feels very depressed and hopeless he is homeless at present. He denies homicidal ideation. He states that he does smoke marijuana. Associated symptoms: Reports visual hallucinations, depression and suicidal ideation; Deny auditory hallucinations or homicidal ideation Review of Systems 2 General: Reports: 10 or more systems reviewed and unremarkable except in HPI and below Psych: Reports: depression, hopelessness, visual hallucinations and suicidal ideation; Denies: auditory hallucinations, tactile hallucinations or homicidal ideation PFSH ED 2 PFSH: Medical History Psychiatric care Major depressive disorder, recurrent severe without psychotic features Social History Smoking and tobacco/nicotine status: current every day tobacco/nicotine user e- cigarettes E-Cigarette Details: vaporizer device and with nicotine E-cig/vape details: 5 mg/Day Quit status (tobacco/nicotine): considering quitting Second hand smoke exposure: No Current gender identity: Male Physical Exam 2 Narrative: EXAM NARRATIVE: Constitutional: the patient appears well nourished and with normal development. Vital signs reviewed as documented. No acute distress, GCS 15, HENMT: Normocephalic, atraumatic. External ears normal appearance without drainage. Nose without drainage, normal appearance. Mucus membranes moist. Neck is supple, No jugular venous distension, trachea is midline, no appreciable carotid bruits. No lymphadenopathy. No meningeal signs. Flexion, extension and lateral rotation is without pain. Eyes: Pupils are equal, round, reactive to light and accommodation. No scleral icterus. Extra-ocular movement are intact. Thorax: is symmetrical and with equal rise and fall with respirations. Resp: Lungs are clear to auscultation. No wheezes, rales, crackles or ronchi at present. Cardio: Regular rate and rhythm. Positive S1, S2. No appreciable murmurs, rubs or gallops. GI: Abdominal exam reveals normal bowel sounds to all quadrants. No organomegaly. No obvious palpable masses noted. No hepatomegally appreciated. Soft, non-tender to palpation. Extremity: Extremities are non-edematous and both femoral and pedal pulses are 2+ and equal bilaterally. Moves all extremities well, sensation in all extremities. Neuro: Alert and oriented x4, person, place, time and situation. Cranial nerves II through XII are grossly intact, there is no focal neurological deficits that I can appreciate at present. Motor strength in the upper and lower extremities are equal and bilateral 5/5. Psych: Cooperative, calm, depressed, suicidal ideations, Skin: No lesions, rashes. No gross abnormalities noted. Back: Symmetrical, no obvious deformity Course 2 Vital Signs: Vital signs: Vital Signs Temperature 98.6 F 12/31/23 01:17 Pulse Rate 80 12/31/23 01:17 Respiratory Rate 20 H 12/31/23 01:17 Blood Pressure 135/84 12/31/23 01:17 Pulse Oximetry 96 12/31/23 01:17 MDM - Psych Medical Decision Making Physical exam completed and documented I did obtain a CBC and CMP urinalysis, urine drug screen and all were essentially unremarkable with the exception of his drug screen which was positive for marijuana. I have contacted the on-call neuropsychiatric physician Dr. Huntley to request admission to the Neuropsych Unit for additional evaluation treatment and care. Medical Records I reviewed the patient's medical records. Lab Data I reviewed the patient's lab results. 12/31/23 01:50 12/31/23 01:50 Laboratory Results WBC 5.90 10^3/uL (3.29-11.43) 12/31/23 01:50 RBC 4.98 10^6/uL (3.85-5.65) 12/31/23 01:50 Hgb 14.20 g/dL (11.27-16.99) 12/31/23 01:50 Hct 42.4 % (37-53) 12/31/23 01:50 MCV 85.1 fl (82-101) 12/31/23 01:50 MCH 28.5 pg (27-33) 12/31/23 01:50 MCHC 33.5 g/dL (30-55) 12/31/23 01:50 RDW 12.3 % (12.1-15.1) 12/31/23 01:50 Plt Count 164 10^3/cmm (157-399) 12/31/23 01:50 MPV 10.9 fL (7.4-10.4) H 12/31/23 01:50 Neut % (Auto) 61.9 % 12/31/23 01:50 Lymph % (Auto) 24.4 % 12/31/23 01:50 [place] % (Auto) 11.2 % 12/31/23 01:50 Eos % (Auto) 1.9 % 12/31/23 01:50 Baso % (Auto) 0.3 % 12/31/23 01:50 Neut # (Auto) 3.65 10^3/uL (1.8-7.7) 12/31/23 01:50 Lymph # (Auto) 1.4 10^3/uL (0.8-4.8) 12/31/23 01:50 [place] # (Auto) 0.7 10^3/uL (0.2-0.9) 12/31/23 01:50 Eos # (Auto) 0.1 10^3/uL (0.0-0.8) 12/31/23 01:50 Baso # (Auto) 0.0 10^3/uL (0.0-0.1) 12/31/23 01:50 Nucleated RBC % (auto) 0 % 12/31/23 01:50 Nucleated RBCs # 0.0 /100WBC 12/31/23 01:50 Sodium 138 mmol/L (136-145) 12/31/23 01:50 Potassium 3.7 mmol/L (3.5-5.1) 12/31/23 01:50 Chloride 102 mmol/L (98-107) 12/31/23 01:50 Carbon Dioxide 27 mmol/L (22-29) 12/31/23 01:50 Anion Gap 12.7 (5-19) 12/31/23 01:50 BUN 13 mg/dL (6-20) 12/31/23 01:50 Creatinine 0.9 mg/dL (0.7-1.2) 12/31/23 01:50 GFR Calculation 102.0 mL/min (90-130) 12/31/23 01:50 Glucose 78 mg/dL (65-115) 12/31/23 01:50 Calculated Osmolality 285 mOsm/kg (285-295) 12/31/23 01:50 Calcium 9.4 mg/dL (8.5-10.5) 12/31/23 01:50 Total Bilirubin 0.2 mg/dL (0.15-1.2) 12/31/23 01:50 AST 16 U/L (0-40) 12/31/23 01:50 ALT 28 U/L (0-41) 12/31/23 01:50 Alkaline Phosphatase 94 U/L (40-130) 12/31/23 01:50 Total Protein 7.1 g/dL (6.6-8.7) 12/31/23 01:50 Albumin 4.0 g/dL (3.5-5.2) 12/31/23 01:50 Globulin 3.1 g/dL (1.3-4.6) 12/31/23 01:50 Urine Color Yellow (Yellow) 12/31/23 01:32 Urine Appearance Clear (CLEAR) 12/31/23 01:32 Urine pH 6 (5-7) 12/31/23 01:32 Ur Specific [place] 1.020 (1.005-1.030) 12/31/23 01:32 Urine Protein Neg (Negative) 12/31/23 01:32 Urine Glucose (UA) Norm (Normal) 12/31/23 01:32 Urine Ketones Negative (Negative) 12/31/23 01:32 Urine Blood Neg (Negative) 12/31/23 01:32 Urine Nitrate Negative (Negative) 12/31/23 01:32 Urine Bilirubin Neg (Negative) 12/31/23 01:32 Urine Urobilinogen Neg mg/dL (Negative) 12/31/23 01:32 Ur Leukocyte Esterase Negative (Negative) 12/31/23 01:32 Salicylates < 0.3 mg/dL (3-10) L 12/31/23 01:50 Urine Opiates Screen Negative ng/mL (Negative) 12/31/23 01:32 Acetaminophen < 5.0 ug/mL (10-30) L 12/31/23 01:50 Ur Barbiturates Screen Negative ng/mL (Negative) 12/31/23 01:32 Ur Phencyclidine Scrn Negative ng/mL (Negative) 12/31/23 01:32 Ur Amphetamines Screen Negative ng/mL (Negative) 12/31/23 01:32 U Benzodiazepines Scrn Negative ng/mL (Negative) 12/31/23 01:32 Urine Cocaine Screen Negative ng/mL (Negative) 12/31/23 01:32 U Marijuana (THC) Screen Positive ng/mL (Negative) H 12/31/23 01:32 Ethyl Alcohol < 10 mg/dL (0-10) 12/31/23 01:50 No radiology studies performed this visit Discharge Plan Discharge Patient Disposition: Admitted As Inpatient Clinical Impression: Suicidal ideation, Psychiatric care, Depression Condition: Stable Prescriptions: No Action benztropine 1 mg tablet 1 mg PO BID Qty: 60 1RF haloperidol 5 mg tablet 5 mg PO BID Qty: 60 1RF haloperidol decanoate [Haldol Decanoate] 100 mg/mL solution 200 mg IM .[id number] Qty: 2 1RF Rx Instructions: Due 12-13-23 Coding Level of Care Code ED Technical Sales Representative for Eric Glover
[2023-12-31 01:46] LABS: Add Urine Microscopic? NO; Charge for UA Resulting for Rev
[2023-12-31 01:57] LABS: Basophils % 0.3 %; Eosinophils # 0.1 10^3/uL (0.0-0.8); Eosinophils % 1.9 %; Hematocrit 42.4 % (37-53); Lymphocytes # 1.4 10^3/uL (0.8-4.8); Lymphocytes % 24.4 %; Mean Corpuscular HGB Conc 33.5 g/dL (30-55); Mean Corpuscular Hemoglobin 28.5 pg (27-33); Mean Corpuscular Volume 85.1 fl (82-101); Mean Platelet Volume 10.9 fL (7.4-10.4); Monocytes # 0.7 10^3/uL (0.2-0.9); Monocytes % 11.2 %; Neutrophils # 3.65 10^3/uL (1.8-7.7); Neutrophils % 61.9 %; Nucleated Red Blood Cells % 0 %; Platelet Count 164 10^3/cmm (157-399); Red Blood Count 4.98 10^6/uL (3.85-5.65); Red Cell Distribution Width 12.3 % (12.1-15.1)
[2023-12-31 01:58] LABS: Amphetamines Screen Urine Negative (Negative); Barbiturates Screen Urine Negative (Negative); Benzodiazepines Screen Urine Negative (Negative); Cocaine Screen Urine Negative (Negative); Opiate Screen Urine Negative (Negative); PCP Screen Urine Negative (Negative); THC Screen Urine Positive (Negative)
[2023-12-31 02:09] LABS: Bilirubin Urine Neg (Negative); Blood Urine Neg (Negative); Glucose Urine UA Norm (Normal); Ketones Urine Negative (Negative); Leukocyte Esterase Urine Negative (Negative); Nitrate Urine Negative (Negative); Protein Urine Neg (Negative); Urine Appearance Clear (CLEAR); Urine Color Yellow (Yellow); Urobilinogen Urine Neg (Negative); pH Urine 6 (5-7)
[2023-12-31 02:22] LABS: Alanine Aminotransferase 28 U/L (0-41); Alkaline Phosphatase 94 U/L (40-130); Anion Gap 12.7 (5-19); Aspartate Amino Transferase 16 U/L (0-40); Blood Urea Nitrogen 13 mg/dL (6-20); Calcium 9.4 mg/dL (8.5-10.5); Carbon Dioxide 27 mmol/L (22-29); Chloride 102 mmol/L (98-107); Globulin 3.1 g/dL (1.3-4.6); Glucose 78 mg/dL (65-115); Osmolality Calculated 285 mOsm/kg (285-295); Potassium 3.7 mmol/L (3.5-5.1); Sodium 138 mmol/L (136-145); Total Bilirubin 0.2 mg/dL (0.15-1.2); Total Protein 7.1 g/dL (6.6-8.7)
[2023-12-31 02:25] LABS: Acetaminophen < 5.0 ug/mL (10-30); Alcohol Level < 10 mg/dL (0-10); Salicylate < 0.3 mg/dL (3-10)
[2023-12-31 05:27] VITALS: PULSE 78; RESP 18; O2SAT 97
[2023-12-31 05:50] VITALS: BP 133/87; PULSE 78; RESP 16; TEMP 36.7; O2SAT 99
[2023-12-31 06:00] VITALS: BP 133/87; PULSE 78; RESP 16; TEMP 36.7; O2SAT 99
--- NOTE | 2023-12-31 06:21 | PC.NURSE ---
Admission Note Pt arrived to [facility] at 0522 on a voluntary hold. Pt states that he is here because he was feeling suicidal, everybody is acting strange and he has been having visual hallucinations for about a month. Pt told ER staff he had a plan to jump in front of a train to kill himself but denied having a plan when asked during admission assessment. Pt states that he has been seeing pieces of hair appear when he stares at things then when he looks away and looks back they are gone. Pt states that he is currently suicidal with no plan, he denies HI and AVH at this time. Pt was dressed into [facility] scrubs and orientated to the unit. Pt is now observed by staff laying in bed quietly with eyes open. Behavioral monitoring continues
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
[2023-12-31] MEDS: benztropine 1 mg Tablet PO ×2 (08:05→17:24)
[2023-12-31] MEDS: haloperidol 5 mg Tablet PO ×2 (08:05→17:24)
[2023-12-31 13:58] VITALS: BP 139/95; PULSE 63; RESP 20; TEMP 36.3; O2SAT 96
[2023-12-31] MEDS: nicotine 2 mg Gum BUCCAL ×2 (18:04→23:17)
[2023-12-31 19:38] VITALS: BP 109/62; PULSE 72; RESP 16; TEMP 36.4; O2SAT 97
[2023-12-31] MEDS: trazodone 50 mg Tablet PO (20:28)
[2023-12-31] MEDS: hyDROXYzine 25 mg Capsule 50 MG PO (20:28)
[2024-01-01 06:00] VITALS: BP 134/71; PULSE 62; RESP 16; TEMP 36.6; O2SAT 96
[2024-01-01 08:18] LABS: Basophils % 0.3 %; Eosinophils # 0.2 10^3/uL (0.0-0.8); Hematocrit 39.9 % (37-53); Lymphocytes # 2.6 10^3/uL (0.8-4.8); Lymphocytes % 38.6 %; Mean Corpuscular HGB Conc 33.1 g/dL (30-55); Mean Corpuscular Hemoglobin 28.6 pg (27-33); Mean Corpuscular Volume 86.6 fl (82-101); Mean Platelet Volume 11.1 fL (7.4-10.4); Monocytes # 0.4 10^3/uL (0.2-0.9); Monocytes % 5.6 %; Neutrophils # 3.54 10^3/uL (1.8-7.7); Neutrophils % 52.4 %; Nucleated Red Blood Cells % 0 %; Platelet Count 166 10^3/cmm (157-399); Red Blood Count 4.61 10^6/uL (3.85-5.65); Red Cell Distribution Width 12.2 % (12.1-15.1); White Blood Count 6.76 10^3/uL (3.29-11.43)
[2024-01-01] MEDS: benztropine 1 mg Tablet PO ×2 (08:25→17:28)
[2024-01-01] MEDS: haloperidol 5 mg Tablet PO ×2 (08:25→17:28)
[2024-01-01 08:38] LABS: Anion Gap 13.7 (5-19); Blood Urea Nitrogen 10 mg/dL (6-20); Calcium 9.2 mg/dL (8.5-10.5); Carbon Dioxide 25 mmol/L (22-29); Chloride 105 mmol/L (98-107); Glomerular Filtration Rate 116.9 mL/min (90-130); Glucose 109 mg/dL (65-115); Osmolality Calculated 290 mOsm/kg (285-295); Potassium 3.7 mmol/L (3.5-5.1); Sodium 140 mmol/L (136-145)
[2024-01-01 14:00] VITALS: BP 117/71; PULSE 54; RESP 16; TEMP 36.8; O2SAT 98
--- NOTE | 2024-01-01 15:47 | P.NPUPN_ITS ---
Subjective NPU 2 Subjective: Patient presented today reporting that he is still feeling depressed. We discussed the possibility of considering an antidepressant a reported he would consider. He had a chance that maybe the social work team and is working on seeing what possibilities exist for possible residential services. We discussed that he will be able to return to [facility] we just need to make sure that he is safe and not lethal in his thinking. He denied any side effects of medication. Mental Status Exam 2 MSE Comments: This is an obese white male in hospital scrubs with limited grooming and eye contact. No abnormal movements except for psychomotor retardation. Cooperative with exam in mild to moderate distress. Speech was decreased rate and volume. Mood described as depressed, affect congruent. Thought process organized. Thought content: Patient endorsed some suicidal but denied homicidal ideations, there were no delusions reported or noted, he denied any visual hallucinations but endorses auditory hallucinations. Attention and concentration were limited and memory appeared mostly reliable but were not formally tested. He is alert and oriented x3. Insight, judgment and impulse control are limited versus impaired. Vitals/I&O/Wt Last Vital Signs Temp 98.2 F 01/01/24 14:00 Pulse 54 L 01/01/24 14:00 Resp 16 01/01/24 14:00 BP 117/71 01/01/24 14:00 Pulse Ox 98 01/01/24 14:00 O2 Del Method Room Air 01/01/24 14:00 Data NPU 01/01/24 08:01 01/01/24 08:01 A&P Assessment and plan (1) Acute psychosis: (2) Suicidal ideation: (3) Major depressive disorder, recurrent, severe with psychotic symptoms: (4) Cannabis use disorder, moderate, in early remission, dependence: (5) Nicotine dependence, unspecified, uncomplicated: (6) Cluster A personality disorder in adult: (7) Generalized anxiety disorder: (8) Inhalant use disorder, severe, in early remission, dependence: (9) Alcohol use disorder: (10) Cannabis use disorder: (11) Suicidal ideation: (12) Schizophrenia: Qualifiers: Schizophrenia type: disorganized schizophrenia Qualified Code(s): F20.1 - Disorganized schizophrenia Plan This is a 28-year-old white male well known to the neuropsychiatric unit with known history of depression, psychosis, addiction and residential instability who presents less than a month since his last hospitalization here off his medication for a few days reportedly feeling overwhelmed with suicidal ideation along with active psychosis. 1.? Continue current medications. Last Haldol injection was 12/23/2023. We will explore whether there are any medication changes to consider. Will speak with outpatient provider tomorrow to brainstorm. 2. Continue every 15 minute checks for safety. 3.? Encourage individual, group and milieu therapies. 4.? Encourage sober living treatment after discharge at the highest level of care to which he is willing to commit. 5.? Work with social work team to identify any possible residential options given some part of his issues seems to stem around homelessness. Involuntary Hold Information 2 96 Hour Hold: 96 Hour Involuntary Admission: No 96 Hour Hold Ending Date: 0 06/05/23 96 Hour Hold Ending Time: 20:37 Attestations NPU 2 Medical Necessity Statement*: Inpatient hospitalization is medically necessary and the clinically appropriate intervention at this time. We will monitor and make medication changes as indicated.? Likely length of stay 3-5 days. Coding Level of Care Code Acute Code for [facility] Fwd Diagnoses Acute psychosis F23 Suicidal ideation R45.851 Major depressive disorder, recurrent, severe with psychotic symptoms F33.3 Cannabis use disorder, moderate, in early remission, dependence F12.21 Nicotine dependence, unspecified, uncomplicated F17.200 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 Inhalant use disorder, severe, in early remission, dependence F18.21 Alcohol use disorder F10.90 Cannabis use disorder F12.90 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
[2024-01-01 20:10] VITALS: BP 145/67; PULSE 79; RESP 16; TEMP 36.5; O2SAT 95
[2024-01-01] MEDS: trazodone 50 mg Tablet PO (20:34)
[2024-01-01] MEDS: hyDROXYzine 25 mg Capsule 50 MG PO (20:34)
[2024-01-02] MEDS: nicotine 4 mg lozenge MUCOUS MEM ×4 (05:42→16:06)
[2024-01-02 06:00] VITALS: BP 143/94; PULSE 94; RESP 18; TEMP 36.3; O2SAT 97
[2024-01-02] MEDS: benztropine 1 mg Tablet PO ×2 (08:12→16:48)
[2024-01-02] MEDS: haloperidol 5 mg Tablet PO ×2 (08:12→16:49)
--- NOTE | 2024-01-02 09:23 | PC.NURSE ---
PT CURRENTLY DENIES HI. PT CURRENTLY ENDORSES SI STATING YEAH, I WANT TO STRANGLE MYSELF WITH THE BLANKETS. PT ENDORSES AH/VH. PT STATES I SAW A SHADOW OF A PERSON WALK INTO THE ROOM AND THEN WALK OUT AND I HAVE BEEN HEARING VOICES TALKING TO ME FROM THE VENTS. PT CURRENTLY ENDORSES ANXIETY RATING IT A 5/10 ON A 0-10 SCALE WHERE 0 IS NONE AND 10 IS THE WORST POSSIBLE. PT DENIED PRN MEDICATION OFFERED. PT ALSO ENDORSES DEPRESSION RATING IT A 8/10 ON 0-10 SCALE WHERE 0 IS NONE AND 10 IS THE WORST POSSIBLE. PT EXPRESSED THAT SOMEONE MADE ME BELIEVE THAT I WROTE MUSIC. AND STATED THAT SINCE IT WAS NOT ACTUALLY HIM WRITING THIS MUSIC HIS FUTURE IS OVER. PHYSICIAN NOTIFIED OF PT STATEMENTS AND BEHAVIORS. PT UNABLE TO CONTRACT FOR SAFETY AND PHYSICIAN PLACED PT ON A 1:1. PT CURRENTLY WITH SITTER. PT CURRENT NEEDS ARE MET AT THIS TIME.
--- NOTE | 2024-01-02 11:48 | P.NPUPN_ITS ---
Subjective NPU 2 Subjective: Patient presented today reporting that he is doing okay. We discussed him being moved to 1-1 after expressing thoughts to hang himself with his sheets. We discussed the risk benefits and alternatives of starting an antidepressant after reviewing his chart and specifically discussing the pros that 20 mg p.o. daily with a target for a higher dose than he had been on prior. He understood and agreed to proceed as is documented in this note. Denies any current side effects from medications. Mental Status Exam 2 MSE Comments: This is an obese white male in hospital scrubs with limited grooming and eye contact. No abnormal movements except for psychomotor retardation. Cooperative with exam in mild to moderate distress. Speech was decreased rate and volume. Mood described as depressed, affect congruent. Thought process organized. Thought content: Patient endorsed some suicidal but denied homicidal ideations, there were no delusions reported or noted, he denied any visual hallucinations but endorses auditory hallucinations. Attention and concentration were limited and memory appeared mostly reliable but were not formally tested. He is alert and oriented x3. Insight, judgment and impulse control are limited versus impaired. Vitals/I&O/Wt Last Vital Signs Temp 97.3 F L 01/02/24 06:00 Pulse 94 01/02/24 06:00 Resp 18 01/02/24 06:00 BP 143/94 01/02/24 06:00 Pulse Ox 97 01/02/24 06:00 O2 Del Method Room Air 01/02/24 06:00 Data NPU 01/01/24 08:01 01/01/24 08:01 A&P Assessment and plan (1) Acute psychosis: (2) Suicidal ideation: (3) Major depressive disorder, recurrent, severe with psychotic symptoms: (4) Cannabis use disorder, moderate, in early remission, dependence: (5) Nicotine dependence, unspecified, uncomplicated: (6) Cluster A personality disorder in adult: (7) Generalized anxiety disorder: (8) Inhalant use disorder, severe, in early remission, dependence: (9) Alcohol use disorder: (10) Cannabis use disorder: (11) Suicidal ideation: (12) Schizophrenia: Qualifiers: Schizophrenia type: disorganized schizophrenia Qualified Code(s): F20.1 - Disorganized schizophrenia Plan This is a 28-year-old white male well known to the neuropsychiatric unit with known history of depression, psychosis, addiction and residential instability who presents less than a month since his last hospitalization here off his medication for a few days reportedly feeling overwhelmed with suicidal ideation along with active psychosis. 1.? Continue current medications. Last Haldol injection was 12/23/2023. Start Prozac 20 mg p.o. daily with a target dose of 60 mg. 2. Continue every 15 minute checks for safety. 3.? Encourage individual, group and milieu therapies. 4.? Encourage sober living treatment after discharge at the highest level of care to which he is willing to commit. 5.? Work with social work team to identify any possible residential options given some part of his issues seems to stem around homelessness. 6. Will try to reach outpatient team on Thursday. Involuntary Hold Information 2 96 Hour Hold: 96 Hour Involuntary Admission: No 96 Hour Hold Ending Date: 0 06/05/23 96 Hour Hold Ending Time: 20:37 Attestations NPU 2 Medical Necessity Statement*: Inpatient hospitalization is medically necessary and the clinically appropriate intervention at this time. We will monitor and make medication changes as indicated.? Likely length of stay 3-5 days. Coding Level of Care Code Acute Code for [facility] Fwd Diagnoses Acute psychosis F23 Suicidal ideation R45.851 Major depressive disorder, recurrent, severe with psychotic symptoms F33.3 Cannabis use disorder, moderate, in early remission, dependence F12.21 Nicotine dependence, unspecified, uncomplicated F17.200 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 Inhalant use disorder, severe, in early remission, dependence F18.21 Alcohol use disorder F10.90 Cannabis use disorder F12.90 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
[2024-01-02 14:00] VITALS: BP 126/81; PULSE 89; RESP 16; TEMP 36.4; O2SAT 97
[2024-01-02] MEDS: fluoxetine 20 mg Capsule PO (14:32)
--- NOTE | 2024-01-02 16:19 | PC.NURSE ---
THIS NURSE SPOKE WITH PT ABOUT SUICIDAL THOUGHTS. PT STATED TO THIS NURSE THAT HE IS STILL HAVING THOUGHTS OF STRANGLING HIMSELF WITH THE BLANKETS. PT WILL CONTINUE TO BE ON 1:1. PT CURRENT NEEDS ARE MET AT THIS TIME.
[2024-01-02] MEDS: hyDROXYzine 25 mg Capsule 50 MG PO (16:48)
[2024-01-02 19:29] VITALS: BP 167/72; PULSE 74; RESP 18; TEMP 36.4; O2SAT 96
[2024-01-03] MEDS: nicotine 4 mg lozenge MUCOUS MEM (00:40)
--- NOTE | 2024-01-03 06:32 | PC.NURSE ---
pt resting only slept an hour tonight resp 18
[2024-01-03] MEDS: benztropine 1 mg Tablet PO ×2 (08:01→17:39)
[2024-01-03] MEDS: fluoxetine 20 mg Capsule PO (08:01)
[2024-01-03] MEDS: haloperidol 5 mg Tablet PO ×2 (08:01→17:39)
--- NOTE | 2024-01-03 11:50 | P.NPUPN_ITS ---
Subjective NPU 2 Subjective: Patient presented today reporting that he is feeling a little less suicidal. He reports continuing to have some sadness and depression. He reports that he did take the Prozac and denies any problems thus far. He denies any side effects to his medication and we discussed working with the social work team tomorrow to see if there were any additional supports or safety measures we might be able to introduce outpatient. Mental Status Exam 2 MSE Comments: This is an obese white male in hospital scrubs with limited grooming and eye contact. No abnormal movements except for psychomotor retardation. Cooperative with exam in mild to moderate distress. Speech was decreased rate and volume. Mood described as depressed, affect congruent. Thought process organized. Thought content: Patient endorsed some suicidal but denied homicidal ideations he did report feeling less suicidal and like he might be able to contract for safety, there were no delusions reported or noted, he denied any visual hallucinations but endorses auditory hallucinations. Attention and concentration were limited and memory appeared mostly reliable but were not formally tested. He is alert and oriented x3. Insight, judgment and impulse control are limited versus impaired. Vitals/I&O/Wt Last Vital Signs Temp 97.5 F L 01/02/24 19:29 Pulse 74 01/02/24 19:29 Resp 18 01/02/24 19:29 BP 167/72 01/02/24 19:29 Pulse Ox 96 01/02/24 19:29 O2 Del Method Room Air 01/02/24 19:29 Data NPU 01/01/24 08:01 01/01/24 08:01 A&P Assessment and plan (1) Acute psychosis: (2) Suicidal ideation: (3) Major depressive disorder, recurrent, severe with psychotic symptoms: (4) Cannabis use disorder, moderate, in early remission, dependence: (5) Nicotine dependence, unspecified, uncomplicated: (6) Cluster A personality disorder in adult: (7) Generalized anxiety disorder: (8) Inhalant use disorder, severe, in early remission, dependence: (9) Alcohol use disorder: (10) Cannabis use disorder: (11) Suicidal ideation: (12) Schizophrenia: Qualifiers: Schizophrenia type: disorganized schizophrenia Qualified Code(s): F20.1 - Disorganized schizophrenia Plan This is a 28-year-old white male well known to the neuropsychiatric unit with known history of depression, psychosis, addiction and residential instability who presents less than a month since his last hospitalization here off his medication for a few days reportedly feeling overwhelmed with suicidal ideation along with active psychosis. 1.? Continue current medications. Last Haldol injection was 12/23/2023. Started Prozac 20 mg p.o. daily with a target dose of 60 mg. 2. Continue one-to-one. Will consider returning back to every 15 minute checks today. 3.? Encourage individual, group and milieu therapies. 4.? Encourage sober living treatment after discharge at the highest level of care to which he is willing to commit. 5.? Work with social work team to identify any possible residential options given some part of his issues seems to stem around homelessness. 6. Will try to reach outpatient team on Thursday. Involuntary Hold Information 2 96 Hour Hold: 96 Hour Involuntary Admission: No 96 Hour Hold Ending Date: 0 06/05/23 96 Hour Hold Ending Time: 20:37 Attestations NPU 2 Medical Necessity Statement*: Inpatient hospitalization is medically necessary and the clinically appropriate intervention at this time. We will monitor and make medication changes as indicated.? Likely length of stay 3 -4 days. Coding Level of Care Code Acute Code for [facility] Fwd Diagnoses Acute psychosis F23 Suicidal ideation R45.851 Major depressive disorder, recurrent, severe with psychotic symptoms F33.3 Cannabis use disorder, moderate, in early remission, dependence F12.21 Nicotine dependence, unspecified, uncomplicated F17.200 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 Inhalant use disorder, severe, in early remission, dependence F18.21 Alcohol use disorder F10.90 Cannabis use disorder F12.90 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
[2024-01-03 14:00] VITALS: BP 135/76; PULSE 56; RESP 16; TEMP 36.6; O2SAT 95
--- NOTE | 2024-01-03 18:09 | PC.NURSE ---
PT FILLED OUT SAFETY PLAN WITH THIS NURSE. PT WAS COOPERATIVE AND CURRENTLY DENIES SI AND DENIES HAVING A PLAN. THIS NURSE SPOKE WITH PHYSICIAN AND PT 1:1 SITTER WILL BE REMOVED AT THIS TIME.
[2024-01-03 18:19] VITALS: BMI 34.8
[2024-01-03 20:38] VITALS: BP 116/61; PULSE 60; RESP 17; TEMP 36.2; O2SAT 96
[2024-01-04 06:00] VITALS: BP 110/59; PULSE 62; RESP 15; TEMP 36.4; O2SAT 96
[2024-01-04] MEDS: haloperidol 5 mg Tablet PO ×2 (08:10→17:04)
[2024-01-04] MEDS: benztropine 1 mg Tablet PO ×2 (08:10→17:04)
[2024-01-04] MEDS: fluoxetine 20 mg Capsule PO (08:10)
[2024-01-04 14:00] VITALS: BP 123/70; PULSE 59; RESP 17; TEMP 36.4; O2SAT 96
[2024-01-04] MEDS: nicotine 4 mg lozenge MUCOUS MEM (17:04)
--- NOTE | 2024-01-04 18:09 | P.NPUPN_ITS ---
Subjective NPU 2 Subjective: Patient presented today reporting that he was doing okay. He continues to be isolative and lying in bed per staff reports and direct observation. He reports that he has not acted on the suicidal thoughts and continues to feel he can contract for safety here having been off one-to-one for about a day. We discussed the risks, benefits and alternatives of increasing the Prozac to 40 mg p.o. daily and he understood and agreed to proceed as is documented in this note. Mental Status Exam 2 MSE Comments: This is an obese white male in hospital scrubs with limited grooming and eye contact. No abnormal movements except for psychomotor retardation. Cooperative with exam in mild to moderate distress. Speech was decreased rate and volume. Mood described as depressed, affect congruent. Thought process organized. Thought content: Patient endorsed some suicidal but denied homicidal ideations he did report feeling less suicidal and like he might be able to contract for safety, there were no delusions reported or noted, he denied any visual hallucinations but endorses auditory hallucinations. Attention and concentration were limited and memory appeared mostly reliable but were not formally tested. He is alert and oriented x3. Insight, judgment and impulse control are limited versus impaired. Vitals/I&O/Wt Last Vital Signs Temp 97.5 F L 01/04/24 14:00 Pulse 59 L 01/04/24 14:00 Resp 17 01/04/24 14:00 BP 123/70 01/04/24 14:00 Pulse Ox 96 01/04/24 14:00 O2 Del Method Room Air 01/04/24 14:00 Weight last 48 hrs Weight 133.356 kg Data NPU 01/01/24 08:01 01/01/24 08:01 A&P Assessment and plan (1) Acute psychosis: (2) Suicidal ideation: (3) Major depressive disorder, recurrent, severe with psychotic symptoms: (4) Cannabis use disorder, moderate, in early remission, dependence: (5) Nicotine dependence, unspecified, uncomplicated: (6) Cluster A personality disorder in adult: (7) Generalized anxiety disorder: (8) Inhalant use disorder, severe, in early remission, dependence: (9) Alcohol use disorder: (10) Cannabis use disorder: (11) Suicidal ideation: (12) Schizophrenia: Qualifiers: Schizophrenia type: disorganized schizophrenia Qualified Code(s): F20.1 - Disorganized schizophrenia Plan This is a 28-year-old white male well known to the neuropsychiatric unit with known history of depression, psychosis, addiction and residential instability who presents less than a month since his last hospitalization here off his medication for a few days reportedly feeling overwhelmed with suicidal ideation along with active psychosis. 1.? Continue current medications. Last Haldol injection was 12/23/2023. Started Prozac 20 mg p.o. daily increased to 40 mg tomorrow with a target dose of 60 mg. 2. Continue one-to-one. Will consider returning back to every 15 minute checks today. 3.? Encourage individual, group and milieu therapies. 4.? Encourage sober living treatment after discharge at the highest level of care to which he is willing to commit. 5.? Work with social work team to identify any possible residential options given some part of his issues seems to stem around homelessness. 6. Will try to reach outpatient team on Thursday. Involuntary Hold Information 2 96 Hour Hold: 96 Hour Involuntary Admission: No 96 Hour Hold Ending Date: 0 06/05/23 96 Hour Hold Ending Time: 20:37 Attestations NPU 2 Medical Necessity Statement*: Inpatient hospitalization is medically necessary and the clinically appropriate intervention at this time. We will monitor and make medication changes as indicated.? Likely length of stay 3 -4 days. Coding Level of Care Code Acute Code for [facility] Fwd Diagnoses Acute psychosis F23 Suicidal ideation R45.851 Major depressive disorder, recurrent, severe with psychotic symptoms F33.3 Cannabis use disorder, moderate, in early remission, dependence F12.21 Nicotine dependence, unspecified, uncomplicated F17.200 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 Inhalant use disorder, severe, in early remission, dependence F18.21 Alcohol use disorder F10.90 Cannabis use disorder F12.90 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
[2024-01-04] MEDS: trazodone 50 mg Tablet PO (21:28)
[2024-01-04 21:54] VITALS: BP 126/76; PULSE 58; RESP 16; TEMP 36.5; O2SAT 96
[2024-01-05 06:00] VITALS: BP 112/74; PULSE 54; RESP 17; TEMP 36.7; O2SAT 97
[2024-01-05] MEDS: fluoxetine 20 mg Capsule 40 MG PO (08:44)
[2024-01-05] MEDS: benztropine 1 mg Tablet PO ×2 (08:44→17:10)
[2024-01-05] MEDS: haloperidol 5 mg Tablet PO ×2 (08:45→17:10)
--- NOTE | 2024-01-05 09:40 | PC.NURSE ---
AT AROUND 0900 STAFF PERFORMED RANDOM ROOM CHECKS FOR CONTRABAND. DURING THIS RANDOM CHECK NO CONTRABAND WAS FOUND IN PT ROOM. PT WAS COOPERATIVE WITH CHECK.
[2024-01-05 14:00] VITALS: BP 123/75; PULSE 57; RESP 16; TEMP 36.8; O2SAT 97
--- NOTE | 2024-01-05 17:57 | P.NPUPN_ITS ---
Subjective NPU 2 Subjective: Patient presented today reporting that things are going okay. He reports that he is not having any problems with the recent increase to 40 mg p.o. daily of Prozac and denied side effects in general. He continues to be quite isolative per staff and direct observation. He reports he is working with the social work team on options moving forward for his outpatient supports. Mental Status Exam 2 MSE Comments: This is an obese white male in hospital scrubs with limited grooming and eye contact. No abnormal movements except for psychomotor retardation. Cooperative with exam in mild to moderate distress. Speech was decreased rate and volume. Mood described as depressed, affect congruent. Thought process organized. Thought content: Patient endorsed some suicidal but denied homicidal ideations he did report feeling less suicidal and like he might be able to contract for safety, there were no delusions reported or noted, he denied any visual hallucinations but endorses auditory hallucinations. Attention and concentration were limited and memory appeared mostly reliable but were not formally tested. He is alert and oriented x3. Insight, judgment and impulse control are limited versus impaired. Vitals/I&O/Wt Last Vital Signs Temp 97.6 F 01/05/24 20:07 Pulse 68 01/05/24 20:07 Resp 16 01/05/24 20:07 BP 105/61 01/05/24 20:07 Pulse Ox 96 01/05/24 20:07 O2 Del Method Room Air 01/05/24 20:07 Data NPU 01/01/24 08:01 01/01/24 08:01 A&P Assessment and plan (1) Acute psychosis: (2) Suicidal ideation: (3) Major depressive disorder, recurrent, severe with psychotic symptoms: (4) Cannabis use disorder, moderate, in early remission, dependence: (5) Nicotine dependence, unspecified, uncomplicated: (6) Cluster A personality disorder in adult: (7) Generalized anxiety disorder: (8) Inhalant use disorder, severe, in early remission, dependence: (9) Alcohol use disorder: (10) Cannabis use disorder: (11) Suicidal ideation: (12) Schizophrenia: Qualifiers: Schizophrenia type: disorganized schizophrenia Qualified Code(s): F20.1 - Disorganized schizophrenia Plan This is a 28-year-old white male well known to the neuropsychiatric unit with known history of depression, psychosis, addiction and residential instability who presents less than a month since his last hospitalization here off his medication for a few days reportedly feeling overwhelmed with suicidal ideation along with active psychosis. 1.? Continue current medications. Last Haldol injection was 12/23/2023. Started Prozac 20 mg p.o. daily increased to 40 mg with a target dose of 60 mg. 2. Continue one-to-one. Will consider returning back to every 15 minute checks today. 3.? Encourage individual, group and milieu therapies. 4.? Encourage sober living treatment after discharge at the highest level of care to which he is willing to commit. 5.? Work with social work team to identify any possible residential options given some part of his issues seems to stem around homelessness. 6. Will try to reach outpatient team on Thursday. Involuntary Hold Information 2 96 Hour Hold: 96 Hour Involuntary Admission: No 96 Hour Hold Ending Date: 0 06/05/23 96 Hour Hold Ending Time: 20:37 Attestations NPU 2 Medical Necessity Statement*: Inpatient hospitalization is medically necessary and the clinically appropriate intervention at this time. We will monitor and make medication changes as indicated.? Likely length of stay 2-4 days. Coding Level of Care Code Acute Code for [facility] Fwd Diagnoses Acute psychosis F23 Suicidal ideation R45.851 Major depressive disorder, recurrent, severe with psychotic symptoms F33.3 Cannabis use disorder, moderate, in early remission, dependence F12.21 Nicotine dependence, unspecified, uncomplicated F17.200 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 Inhalant use disorder, severe, in early remission, dependence F18.21 Alcohol use disorder F10.90 Cannabis use disorder F12.90 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
[2024-01-05] MEDS: nicotine 4 mg lozenge MUCOUS MEM (18:09)
[2024-01-05 20:07] VITALS: BP 105/61; PULSE 68; RESP 16; TEMP 36.4; O2SAT 96
[2024-01-05] MEDS: trazodone 50 mg Tablet PO (23:15)
[2024-01-06 06:00] VITALS: BP 118/63; PULSE 55; RESP 16; TEMP 36.6; O2SAT 98
[2024-01-06] MEDS: haloperidol 5 mg Tablet PO ×2 (08:35→17:30)
[2024-01-06] MEDS: benztropine 1 mg Tablet PO ×2 (08:35→17:30)
[2024-01-06] MEDS: fluoxetine 20 mg Capsule 40 MG PO (08:35)
--- NOTE | 2024-01-06 13:47 | PC.NURSE ---
AT AROUND 1215 RANDOM ROOM CHECKS WAS PERFORMED BY STAFF. DURING THIS ROOM CHECK NO CONTRABAND WAS FOUND IN THIS PATIENT ROOM. PT WAS COOPERATIVE WITH ROOM CHECK.
[2024-01-06 14:00] VITALS: BP 122/65; PULSE 57; RESP 16; TEMP 36.7; O2SAT 97
--- NOTE | 2024-01-06 15:59 | P.NPUPN_ITS ---
Subjective NPU 2 Subjective: Patient presented today reporting that he is doing okay. He continues to be isolative and laying in bed and sleep much of the day. He reports he does feel that the Prozac is helping a little we continued to discuss the plan of increasing it to 60 likely within the next week. He did have case management visit today and he is hoping that they are going to come back tomorrow for the full evaluation and hopefully get him some additional individual outpatient resources. He denied any side effects of the medication. Mental Status Exam 2 MSE Comments: This is an obese white male in hospital scrubs with limited grooming and eye contact. No abnormal movements except for psychomotor retardation. Cooperative with exam in mild to moderate distress. Speech was decreased rate and volume. Mood described as depressed, affect congruent. Thought process organized. Thought content: Patient endorsed some suicidal but denied homicidal ideations he did report feeling less suicidal and like he might be able to contract for safety, there were no delusions reported or noted, he denied any visual hallucinations but endorses auditory hallucinations. Attention and concentration were limited and memory appeared mostly reliable but were not formally tested. He is alert and oriented x3. Insight, judgment and impulse control are limited versus impaired. Vitals/I&O/Wt Last Vital Signs Temp 98.1 F 01/06/24 14:00 Pulse 57 L 01/06/24 14:00 Resp 16 01/06/24 14:00 BP 122/65 01/06/24 14:00 Pulse Ox 97 01/06/24 14:00 O2 Del Method Room Air 01/06/24 06:00 Data NPU 01/01/24 08:01 01/01/24 08:01 A&P Assessment and plan (1) Acute psychosis: (2) Suicidal ideation: (3) Major depressive disorder, recurrent, severe with psychotic symptoms: (4) Cannabis use disorder, moderate, in early remission, dependence: (5) Nicotine dependence, unspecified, uncomplicated: (6) Cluster A personality disorder in adult: (7) Generalized anxiety disorder: (8) Inhalant use disorder, severe, in early remission, dependence: (9) Alcohol use disorder: (10) Cannabis use disorder: (11) Suicidal ideation: (12) Schizophrenia: Qualifiers: Schizophrenia type: disorganized schizophrenia Qualified Code(s): F20.1 - Disorganized schizophrenia Plan This is a 28-year-old white male well known to the neuropsychiatric unit with known history of depression, psychosis, addiction and residential instability who presents less than a month since his last hospitalization here off his medication for a few days reportedly feeling overwhelmed with suicidal ideation along with active psychosis. 1.? Continue current medications. Last Haldol injection was 12/23/2023. Started Prozac 20 mg p.o. daily increased to 40 mg with a target dose of 60 mg. 2. Continue one-to-one. Will consider returning back to every 15 minute checks today. 3.? Encourage individual, group and milieu therapies. 4.? Encourage sober living treatment after discharge at the highest level of care to which he is willing to commit. 5.? Work with social work team to identify any possible residential options given some part of his issues seems to stem around homelessness. [place] [facility] [place] 6. He had a visit from what appears to be case management on they were invited to evaluate him on the premises if that would expedite him having that additional resources outpatient. Involuntary Hold Information 2 96 Hour Hold: 96 Hour Involuntary Admission: No 96 Hour Hold Ending Date: 0 06/05/23 96 Hour Hold Ending Time: 20:37 Attestations NPU 2 Medical Necessity Statement*: Inpatient hospitalization is medically necessary and the clinically appropriate intervention at this time. We will monitor and make medication changes as indicated.? Likely length of stay 2-4 days. Coding Level of Care Code Acute Code for [facility] Fwd Diagnoses Acute psychosis F23 Suicidal ideation R45.851 Major depressive disorder, recurrent, severe with psychotic symptoms F33.3 Cannabis use disorder, moderate, in early remission, dependence F12.21 Nicotine dependence, unspecified, uncomplicated F17.200 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 Inhalant use disorder, severe, in early remission, dependence F18.21 Alcohol use disorder F10.90 Cannabis use disorder F12.90 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
[2024-01-06 20:10] VITALS: BP 115/66; PULSE 60; RESP 18; TEMP 36.5; O2SAT 95
[2024-01-06] MEDS: trazodone 50 mg Tablet PO (20:18)
[2024-01-06] MEDS: hyDROXYzine 25 mg Capsule 50 MG PO (20:18)
[2024-01-07 06:00] VITALS: BP 105/83; PULSE 51; RESP 17; TEMP 36.3; O2SAT 95
[2024-01-07] MEDS: fluoxetine 20 mg Capsule 40 MG PO (08:42)
[2024-01-07] MEDS: benztropine 1 mg Tablet PO ×2 (08:43→17:12)
[2024-01-07] MEDS: haloperidol 5 mg Tablet PO ×2 (08:43→17:11)
[2024-01-07] MEDS: nicotine 4 mg lozenge MUCOUS MEM ×2 (08:43→17:12)
--- NOTE | 2024-01-07 13:29 | W.PM.NPUPNS ---
Subjective NPU Subjective: Patient presented today reporting that he is continuing to do better day by day but still struggles with feelings of depression and some suicidality. We discussed the possibility of continuing the increase in his Prozac 60 mg prior to discharge. We are awaiting his out and team returning to see him including the possibility of his evaluation by his future case picker. He denies any side effects of the medication. Mental Status Exam MSE Comments: This is an obese white male in hospital scrubs with limited grooming and eye contact. No abnormal movements except for psychomotor retardation. Cooperative with exam in mild to moderate distress. Speech was decreased rate and volume. Mood described as depressed, affect congruent. Thought process organized. Thought content: Patient endorsed some suicidal but denied homicidal ideations he did report feeling less suicidal and like he might be able to contract for safety, there were no delusions reported or noted, he denied any visual hallucinations but endorses auditory hallucinations. Attention and concentration were limited and memory appeared mostly reliable but were not formally tested. He is alert and oriented x3. Insight, judgment and impulse control are limited versus impaired. Vitals/I&O/Wt Last Vital Signs Temp 97.3 F L 01/07/24 06:00 Pulse 51 L 01/07/24 06:00 Resp 17 01/07/24 06:00 BP 105/83 01/07/24 06:00 Pulse Ox 95 01/07/24 06:00 O2 Del Method Room Air 01/07/24 06:00 Data NPU 01/01/24 08:01 01/01/24 08:01 A&P Assessment and plan (1) Acute psychosis: (2) Suicidal ideation: (3) Major depressive disorder, recurrent, severe with psychotic symptoms: (4) Cannabis use disorder, moderate, in early remission, dependence: (5) Nicotine dependence, unspecified, uncomplicated: (6) Cluster A personality disorder in adult: (7) Generalized anxiety disorder: (8) Inhalant use disorder, severe, in early remission, dependence: (9) Alcohol use disorder: (10) Cannabis use disorder: (11) Suicidal ideation: (12) Schizophrenia: Qualifiers: Schizophrenia type: disorganized schizophrenia Qualified Code(s): F20.1 - Disorganized schizophrenia Plan This is a 28-year-old white male well known to the neuropsychiatric unit with known history of depression, psychosis, addiction and residential instability who presents less than a month since his last hospitalization here off his medication for a few days reportedly feeling overwhelmed with suicidal ideation along with active psychosis. 1.? Continue current medications. Last Haldol injection was 12/23/2023. Started Prozac 20 mg p.o. daily increased to 40 mg with a target dose of 60 mg. 2. Continue one-to-one. Will consider returning back to every 15 minute checks today. 3.? Encourage individual, group and milieu therapies. 4.? Encourage sober living treatment after discharge at the highest level of care to which he is willing to commit. 5.? Work with social work team to identify any possible residential options given some part of his issues seems to stem around homelessness. Current plan is [place] [facility] [place] 6. He had a visit from what appears to be case management on they were invited to evaluate him on the premises if that would expedite him having that additional resources outpatient. Involuntary Hold Information 96 Hour Hold: 96 Hour Involuntary Admission: No 96 Hour Hold Ending Date: 06/05/23 96 Hour Hold Ending Time: 20:37 Attestations U Medical Necessity Statement*: Inpatient hospitalization is medically necessary and the clinically appropriate intervention at this time. We will monitor and make medication changes as indicated.? Likely length of stay 2-4 days. Coding Level of Care Code Acute Code for [facility] Fwd Diagnoses Acute psychosis F23 Suicidal ideation R45.851 Major depressive disorder, recurrent, severe with psychotic symptoms F33.3 Cannabis use disorder, moderate, in early remission, dependence F12.21 Nicotine dependence, unspecified, uncomplicated F17.200 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 Inhalant use disorder, severe, in early remission, dependence F18.21 Alcohol use disorder F10.90 Cannabis use disorder F12.90 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
[2024-01-07 14:00] VITALS: BP 127/76; PULSE 62; RESP 16; TEMP 36.7; O2SAT 97
[2024-01-07 19:52] VITALS: BP 112/69; PULSE 77; RESP 16; TEMP 36.4; O2SAT 95
[2024-01-08] MEDS: nicotine 4 mg lozenge MUCOUS MEM ×2 (05:55→08:24)
[2024-01-08 06:00] VITALS: BP 128/63; PULSE 61; RESP 16; TEMP 36.3; O2SAT 98
[2024-01-08] MEDS: fluoxetine 20 mg Capsule 40 MG PO (08:24)
[2024-01-08] MEDS: benztropine 1 mg Tablet PO ×2 (08:24→17:48)
[2024-01-08] MEDS: haloperidol 5 mg Tablet PO ×2 (08:24→17:48)
[2024-01-08 13:11] VITALS: BP 108/68; PULSE 67; RESP 16; TEMP 36.4; O2SAT 95
--- NOTE | 2024-01-08 17:09 | P.NPUPN_ITS ---
Subjective NPU 2 Subjective: Patient presented today reporting that he is doing okay. He did not have a visit from his case management team yet for his evaluation. Social work team will try to get in contact with him with hopes of getting that in place prior to discharge. Otherwise he denied any changes and we discussed having continued his Prozac at 40 mg and considering an increase while he is in the hospital versus something to do after discharge. We discussed the likelihood of discharge next week. He denied any side effects to the medication. Mental Status Exam 2 MSE Comments: This is an obese white male in hospital scrubs with limited grooming and eye contact. No abnormal movements except for psychomotor retardation. Cooperative with exam in mild to moderate distress. Speech was decreased rate and volume. Mood described as depressed, affect congruent. Thought process organized. Thought content: Patient endorsed some suicidal but denied homicidal ideations he did report feeling less suicidal and like he might be able to contract for safety, there were no delusions reported or noted, he denied any visual hallucinations but endorses auditory hallucinations. Attention and concentration were limited and memory appeared mostly reliable but were not formally tested. He is alert and oriented x3. Insight, judgment and impulse control are limited versus impaired. Vitals/I&O/Wt Last Vital Signs Temp 97.6 F 01/08/24 13:11 Pulse 67 01/08/24 13:11 Resp 16 01/08/24 13:11 BP 108/68 01/08/24 13:11 Pulse Ox 95 01/08/24 13:11 O2 Del Method Room Air 01/08/24 13:11 Data NPU 01/01/24 08:01 01/01/24 08:01 A&P Assessment and plan (1) Acute psychosis: (2) Suicidal ideation: (3) Major depressive disorder, recurrent, severe with psychotic symptoms: (4) Cannabis use disorder, moderate, in early remission, dependence: (5) Nicotine dependence, unspecified, uncomplicated: (6) Cluster A personality disorder in adult: (7) Generalized anxiety disorder: (8) Inhalant use disorder, severe, in early remission, dependence: (9) Alcohol use disorder: (10) Cannabis use disorder: (11) Suicidal ideation: (12) Schizophrenia: Qualifiers: Schizophrenia type: disorganized schizophrenia Qualified Code(s): F20.1 - Disorganized schizophrenia Plan This is a 28-year-old white male well known to the neuropsychiatric unit with known history of depression, psychosis, addiction and residential instability who presents less than a month since his last hospitalization here off his medication for a few days reportedly feeling overwhelmed with suicidal ideation along with active psychosis. 1.? Continue current medications. Last Haldol injection was 12/23/2023. Started Prozac 20 mg p.o. daily increased to 40 mg with a target dose of 60 mg. 2. Continue one-to-one. Will consider returning back to every 15 minute checks today. 3.? Encourage individual, group and milieu therapies. 4.? Encourage sober living treatment after discharge at the highest level of care to which he is willing to commit. 5.? Work with social work team to identify any possible residential options given some part of his issues seems to stem around homelessness. Current plan is for him to return to [facility] [place]. 6. He had a visit from what appears to be case management on they were invited to evaluate him on the premises if that would expedite him having that additional resources outpatient. Involuntary Hold Information 2 96 Hour Hold: 96 Hour Involuntary Admission: No 96 Hour Hold Ending Date: 0 06/05/23 96 Hour Hold Ending Time: 20:37 Attestations NPU 2 Medical Necessity Statement*: Inpatient hospitalization is medically necessary and the clinically appropriate intervention at this time. We will monitor and make medication changes as indicated.? Likely length of stay 2-4 days. Coding Level of Care Code Acute Code for [facility] Fwd Diagnoses Acute psychosis F23 Suicidal ideation R45.851 Major depressive disorder, recurrent, severe with psychotic symptoms F33.3 Cannabis use disorder, moderate, in early remission, dependence F12.21 Nicotine dependence, unspecified, uncomplicated F17.200 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 Inhalant use disorder, severe, in early remission, dependence F18.21 Alcohol use disorder F10.90 Cannabis use disorder F12.90 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
[2024-01-08] MEDS: trazodone 50 mg Tablet PO (20:01)
[2024-01-08] MEDS: hyDROXYzine 25 mg Capsule 50 MG PO (20:01)
[2024-01-08 20:14] VITALS: BP 113/68; PULSE 60; RESP 16; TEMP 36.4; O2SAT 98
[2024-01-09] MEDS: nicotine 4 mg lozenge MUCOUS MEM ×3 (05:16→13:15)
[2024-01-09 06:00] VITALS: BP 127/75; PULSE 56; RESP 16; TEMP 36.6; O2SAT 96
[2024-01-09] MEDS: haloperidol 5 mg Tablet PO ×2 (07:54→17:48)
[2024-01-09] MEDS: fluoxetine 20 mg Capsule 40 MG PO (07:54)
[2024-01-09] MEDS: benztropine 1 mg Tablet PO ×2 (07:54→17:49)
--- NOTE | 2024-01-09 09:34 | P.NPUPN_ITS ---
Subjective NPU 2 Subjective: Patient presented today reporting that he is doing okay. We discussed Dr. Cooney returning tomorrow and being the decision-maker on his discharge likely at the beginning of the week. We discussed having a goal of having his case management come by and see him prior to discharge or at least come by and have the assessment done a possible. He denies any side effects to the medication. Mental Status Exam 2 MSE Comments: This is an obese white male in hospital scrubs with limited grooming and eye contact. No abnormal movements except for psychomotor retardation. Cooperative with exam in mild to moderate distress. Speech was decreased rate and volume. Mood described as maybe a little better, affect congruent. Thought process organized. Thought content: Patient denied active suicidal or homicidal ideations he did report feeling less suicidal and like he might be able to contract for safety, there were no delusions reported or noted, he denied any visual hallucinations but endorses auditory hallucinations. Attention and concentration were limited and memory appeared mostly reliable but were not formally tested. He is alert and oriented x3. Insight, judgment and impulse control are limited versus impaired. Vitals/I&O/Wt Last Vital Signs Temp 97.8 F 01/09/24 06:00 Pulse 56 L 01/09/24 06:00 Resp 16 01/09/24 06:00 BP 127/75 01/09/24 06:00 Pulse Ox 96 01/09/24 06:00 O2 Del Method Room Air 01/09/24 06:00 Data NPU 01/01/24 08:01 01/01/24 08:01 A&P Assessment and plan (1) Acute psychosis: (2) Suicidal ideation: (3) Major depressive disorder, recurrent, severe with psychotic symptoms: (4) Cannabis use disorder, moderate, in early remission, dependence: (5) Nicotine dependence, unspecified, uncomplicated: (6) Cluster A personality disorder in adult: (7) Generalized anxiety disorder: (8) Inhalant use disorder, severe, in early remission, dependence: (9) Alcohol use disorder: (10) Cannabis use disorder: (11) Suicidal ideation: (12) Schizophrenia: Qualifiers: Schizophrenia type: disorganized schizophrenia Qualified Code(s): F20.1 - Disorganized schizophrenia Plan This is a 28-year-old white male well known to the neuropsychiatric unit with known history of depression, psychosis, addiction and residential instability who presents less than a month since his last hospitalization here off his medication for a few days reportedly feeling overwhelmed with suicidal ideation along with active psychosis. 1.? Continue current medications. Last Haldol injection was 12/23/2023. Started Prozac 20 mg p.o. daily increased to 40 mg with a target dose of 60 mg. 2. Continue one-to-one. Will consider returning back to every 15 minute checks today. 3.? Encourage individual, group and milieu therapies. 4.? Encourage sober living treatment after discharge at the highest level of care to which he is willing to commit. 5.? Work with social work team to identify any possible residential options given some part of his issues seems to stem around homelessness. Current plan is for him to return to [facility] [place]. 6. He had a visit from what appears to be case management on they were invited to evaluate him on the premises if that would expedite him having that additional resources outpatient. Involuntary Hold Information 2 96 Hour Hold: 96 Hour Involuntary Admission: No 96 Hour Hold Ending Date: 0 06/05/23 96 Hour Hold Ending Time: 20:37 Attestations NPU 2 Medical Necessity Statement*: Inpatient hospitalization is medically necessary and the clinically appropriate intervention at this time. We will monitor and make medication changes as indicated.? Likely length of stay 2-4 days. Coding Level of Care Code Acute Code for [facility] Fwd Diagnoses Acute psychosis F23 Suicidal ideation R45.851 Major depressive disorder, recurrent, severe with psychotic symptoms F33.3 Cannabis use disorder, moderate, in early remission, dependence F12.21 Nicotine dependence, unspecified, uncomplicated F17.200 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 Inhalant use disorder, severe, in early remission, dependence F18.21 Alcohol use disorder F10.90 Cannabis use disorder F12.90 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
[2024-01-09 13:55] VITALS: BP 112/73; PULSE 61; RESP 16; TEMP 36.6; O2SAT 96
[2024-01-09 19:50] VITALS: BP 125/73; PULSE 56; RESP 16; TEMP 36.6; O2SAT 96
[2024-01-09] MEDS: trazodone 50 mg Tablet PO (21:56)
[2024-01-10 06:00] VITALS: BP 105/61; PULSE 53; RESP 16; TEMP 36.4; O2SAT 98
[2024-01-10] MEDS: haloperidol 5 mg Tablet PO ×2 (08:29→17:55)
[2024-01-10] MEDS: fluoxetine 20 mg Capsule 40 MG PO (08:29)
[2024-01-10] MEDS: benztropine 1 mg Tablet PO ×2 (08:30→17:55)
--- NOTE | 2024-01-10 13:53 | P.NPUPN_ITS ---
Subjective NPU 2 Subjective: 28-year-old white male with a history of multiple inpatient hospitalizations with a diagnosis of schizophrenia admitted with suicidal ideation. The patient had reported continuing to hear voices through the clark. He had stated that he had continued to feel depressed and reported low energy and frequent problems with not feeling rested in the morning. He had reported that he had been feeling somewhat better with the adjustments made in his medications. He had reported some occasional feelings of hopelessness. He had continued to isolate himself on the milieu. He had reported that he still felt depressed and was uncertain as to whether he would be able to return back to his [facility] upon discharge from here. He had reported that he had been residing at the [facility] [place]. Mental Status Exam 2 MSE Comments: This is an obese white male in hospital scrubs with poor grooming and fair eye contact. No abnormal movements other than moderate psychomotor retardation. Cooperative with exam in mild to moderate distress. Speech was decreased rate and volume. Mood described as maybe a little better. His affect appeared mood incongruent and blunted. Thought process was linear and organized. Thought content: Patient endorsed suicidal thoughts with no active plan endorsed. He minimized any homicidal ideation. There were no delusions reported or noted, he denied any visual hallucinations but endorses auditory hallucinations through the clark of his room. Attention and concentration were limited and memory appeared mostly reliable but were not formally tested. He is alert and oriented x3. Insight, judgment and impulse control are limited versus impaired. Vitals/I&O/Wt Last Vital Signs Temp 97.5 F L 01/10/24 06:00 Pulse 53 L 01/10/24 06:00 Resp 16 01/10/24 06:00 BP 105/61 01/10/24 06:00 Pulse Ox 98 01/10/24 06:00 O2 Del Method Room Air 01/09/24 13:55 Weight last 48 hrs Weight 135.171 kg Data NPU 01/01/24 08:01 01/01/24 08:01 A&P Assessment and plan (1) Schizophrenia: Qualifiers: Schizophrenia type: disorganized schizophrenia Qualified Code(s): F20.1 - Disorganized schizophrenia (2) Acute psychosis: (3) Suicidal ideation: (4) Major depressive disorder, recurrent, severe with psychotic symptoms: (5) Cannabis use disorder, moderate, in early remission, dependence: (6) Nicotine dependence, unspecified, uncomplicated: (7) Cluster A personality disorder in adult: (8) Generalized anxiety disorder: (9) Inhalant use disorder, severe, in early remission, dependence: (10) Alcohol use disorder: (11) Cannabis use disorder: (12) Suicidal ideation: Plan This is a 28-year-old white male well known to the neuropsychiatric unit with known history of depression, psychosis, addiction and residential instability who presents less than a month since his last hospitalization here off his medication for a few days reportedly feeling overwhelmed with suicidal ideation along with active psychosis. 1.? Continue current medications. Last Haldo 200mg injection was 12/23/2023. Continue oral haldol 5mg bid. Continue prozac 40 mg daily with a target dose of 60 mg. Monitor for EPS symptoms. 2. Continue one-to-one. Will consider returning back to every 15 minute checks today. 3.? Encourage individual, group and milieu therapies. 4.? Encourage sober living treatment after discharge at the highest level of care to which he is willing to commit. 5.? Work with social work team to identify any possible residential options given some part of his issues seems to stem around homelessness. Current plan is for him to return to [facility] [place]. 6. He had a visit from what appears to be case management on they were invited to evaluate him on the premises if that would expedite him having that additional resources outpatient. Involuntary Hold Information 2 96 Hour Hold: 96 Hour Involuntary Admission: No 96 Hour Hold Ending Date: 0 06/05/23 96 Hour Hold Ending Time: 20:37 Attestations NPU 2 Medical Necessity Statement*: Inpatient hospitalization is medically necessary and the clinically appropriate intervention at this time. We will monitor and make medication changes as indicated.? The patient's likely length of stay is 2-4 days. Coding Level of Care Code Acute Code for [facility] Fwd Diagnoses 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 Acute psychosis F23 Suicidal ideation R45.851 Major depressive disorder, recurrent, severe with psychotic symptoms F33.3 Cannabis use disorder, moderate, in early remission, dependence F12.21 Nicotine dependence, unspecified, uncomplicated F17.200 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 Inhalant use disorder, severe, in early remission, dependence F18.21 Alcohol use disorder F10.90 Cannabis use disorder F12.90
[2024-01-10 14:00] VITALS: BP 121/74; PULSE 56; RESP 16; TEMP 36.6; O2SAT 96
[2024-01-10 20:22] VITALS: BP 122/74; PULSE 68; RESP 16; TEMP 36.4; O2SAT 96
[2024-01-11 06:00] VITALS: BP 136/72; PULSE 53; RESP 16; TEMP 36.5; O2SAT 95
[2024-01-11] MEDS: nicotine 4 mg lozenge MUCOUS MEM ×2 (06:13→12:14)
[2024-01-11] MEDS: fluoxetine 20 mg Capsule 40 MG PO (08:08)
[2024-01-11] MEDS: haloperidol 5 mg Tablet PO (08:08)
[2024-01-11] MEDS: benztropine 1 mg Tablet PO ×2 (08:08→17:22)
[2024-01-11 14:00] VITALS: BP 117/65; PULSE 63; RESP 16; TEMP 36.5; O2SAT 95
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
[2024-01-11] MEDS: haloperidol 5 mg Tablet 2.5 MG PO (17:22)
[2024-01-11 20:38] VITALS: BP 113/69; PULSE 65; RESP 17; TEMP 36.5; O2SAT 97
[2024-01-12 06:00] VITALS: BP 130/73; PULSE 92; RESP 18; TEMP 36.5; O2SAT 97
[2024-01-12] MEDS: nicotine 4 mg lozenge MUCOUS MEM ×3 (06:02→12:32)
[2024-01-12] MEDS: fluoxetine 20 mg Capsule 60 MG PO (08:04)
[2024-01-12] MEDS: benztropine 1 mg Tablet PO ×2 (08:05→18:03)
[2024-01-12] MEDS: haloperidol 5 mg Tablet 2.5 MG PO ×2 (08:05→18:03)
[2024-01-12 14:00] VITALS: BP 140/83; PULSE 88; RESP 16; TEMP 36.6; O2SAT 97
--- NOTE | 2024-01-12 14:40 | P.NPUPN_ITS ---
Subjective NPU 2 Subjective: 28-year-old white male with a history of multiple inpatient hospitalizations with a diagnosis of schizoaffective disorder admitted with suicidal ideation. The patient appeared more interactive today. He had reported that the Prozac had been helpful for his mood. He had reported that the voices continued to be present but stated that they were less intrusive. He had also reported having odd beliefs as he had stated that he had seen something come out from this son when looking at the Eclipse with glasses yesterday. The patient reported no feelings of hopelessness today. He had been able to attend groups. He had reported feeling less fatigued with the reduction in oral Haldol. He had expressed interest in considering an alternative antipsychotic different from Haldol to be used in conjunction with his intramuscular Haldol today. He had reported that he had considered disability due to his inability to care for himself and had spoken with his telehealth case manager about this previously. Mental Status Exam 2 MSE Comments: This is an obese white male in hospital scrubs with poor grooming and fair eye contact. No abnormal movements other than mild psychomotor retardation. He was cooperative with exam in mild to moderate distress. Speech was diminished in rate and normal in volume. Mood described as allright today. His affect appeared less restricted. Thought process was linear and organized. Thought content: Patient endorsed fleeting suicidal thoughts with no active plan endorsed. He minimized any homicidal ideation. There were no delusions reported or noted, he denied any visual hallucinations and reported faint auditory hallucinations. Attention and concentration were limited and memory appeared mostly reliable but were not formally tested. He is alert and oriented x3. Insight, judgment and impulse control are limited versus impaired. Vitals/I&O/Wt Last Vital Signs Temp 98 F 01/12/24 14:00 Pulse 88 01/12/24 14:00 Resp 16 01/12/24 14:00 BP 140/83 01/12/24 14:00 Pulse Ox 97 01/12/24 14:00 O2 Del Method Room Air 01/12/24 14:00 Data NPU 01/01/24 08:01 01/01/24 08:01 A&P Assessment and plan (1) Schizophrenia: Qualifiers: Schizophrenia type: disorganized schizophrenia Qualified Code(s): F20.1 - Disorganized schizophrenia (2) Acute psychosis: (3) Suicidal ideation: (4) Major depressive disorder, recurrent, severe with psychotic symptoms: (5) Cannabis use disorder, moderate, in early remission, dependence: (6) Nicotine dependence, unspecified, uncomplicated: (7) Cluster A personality disorder in adult: (8) Generalized anxiety disorder: (9) Inhalant use disorder, severe, in early remission, dependence: (10) Alcohol use disorder: (11) Cannabis use disorder: (12) Suicidal ideation: Plan This is a 28-year-old white male well known to the neuropsychiatric unit with known history of depression, psychosis, addiction and residential instability who presents less than a month since his last hospitalization here off his medication for a few days reportedly feeling overwhelmed with suicidal ideation along with active psychosis. 1.? Continue current medications. Last Haldol 200mg injection was 12/23/2023. Reduced oral haldol to 2.5mg bid with plan to eventually d/c oral haldol and consider seroquel adjunctively with Joaquin. Dec for psychosis. Continue Prozac to 60mg daily. Continue to monitor for EPS symptoms. Consider another adjunctive atypical antipsychotic oral to be taken with haldol decanoate. 2. Continue one-to-one. Will consider returning back to every 15 minute checks today. 3.? Encourage individual, group and milieu therapies. 4.? Encourage sober living treatment after discharge at the highest level of care to which he is willing to commit. 5.? Work with social work team to identify any possible residential options given some part of his issues seems to stem around homelessness. Current plan is for him to return to [facility] [place]. 6. He had a visit from what appears to be case management on they were invited to evaluate him on the premises if that would expedite him having that additional resources outpatient. Involuntary Hold Information 2 96 Hour Hold: 96 Hour Involuntary Admission: No 96 Hour Hold Ending Date: 0 06/05/23 96 Hour Hold Ending Time: 20:37 Attestations NPU 2 Medical Necessity Statement*: Inpatient hospitalization is medically necessary and the clinically appropriate intervention at this time. We will monitor and make medication changes as indicated.? The patient's likely length of stay is 3-5 days. Coding Level of Care Code Acute Code for [facility] Diagnoses 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 Acute psychosis F23 Suicidal ideation R45.851 Major depressive disorder, recurrent, severe with psychotic symptoms F33.3 Cannabis use disorder, moderate, in early remission, dependence F12.21 Nicotine dependence, unspecified, uncomplicated F17.200 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 Inhalant use disorder, severe, in early remission, dependence F18.21 Alcohol use disorder F10.90 Cannabis use disorder F12.90
[2024-01-12 19:41] VITALS: BP 127/67; PULSE 68; RESP 17; TEMP 36.6; O2SAT 97
[2024-01-13 06:00] VITALS: BP 124/70; PULSE 56; RESP 18; TEMP 36.7; O2SAT 98
[2024-01-13] MEDS: nicotine 4 mg lozenge MUCOUS MEM ×2 (06:20→14:30)
[2024-01-13] MEDS: fluoxetine 20 mg Capsule 60 MG PO (08:08)
[2024-01-13] MEDS: benztropine 1 mg Tablet PO ×2 (08:09→17:36)
[2024-01-13] MEDS: haloperidol 5 mg Tablet 2.5 MG PO ×2 (08:09→17:36)
[2024-01-13] MEDS: docusate sodium 100 mg Capsule PO (09:28)
[2024-01-13 13:52] VITALS: BP 155/99; PULSE 93; RESP 16; TEMP 36.9; O2SAT 97
--- NOTE | 2024-01-13 14:27 | P.NPUPN_ITS ---
Subjective NPU 2 Subjective: 28-year-old white male with a history of multiple inpatient hospitalizations with a diagnosis of schizoaffective disorder admitted with suicidal ideation. He had continued to endorse paranoia. He had reported that the voices were intermittent but remained distracting. He had reported having fleeting suicidal thoughts. He had complained of constipation. He had been out of his room more and appeared to be more engaged in self-care. He had reported that he had woken up feeling better but gradually became more hopeless as the day went on. He had been able to attend groups. Mental Status Exam 2 MSE Comments: This is an obese white male in hospital scrubs with improved grooming and fleeting eye contact. No abnormal movements other than mild psychomotor retardation. He was cooperative with exam in mild to moderate distress. Speech was diminished in rate and spontaneity, and normal in volume. Mood described as still depressed. His affect was blunted. Thought process was linear and organized. Thought content: Patient endorsed fleeting suicidal thoughts with no active plan endorsed. He minimized any homicidal ideation. There were no delusions reported or noted, he denied any visual hallucinations and reported faint auditory hallucinations. Attention and concentration were limited and memory appeared mostly reliable but were not formally tested. He is alert and oriented x3. Insight, judgment and impulse control are limited. Vitals/I&O/Wt Last Vital Signs Temp 98.4 F 01/13/24 13:52 Pulse 93 01/13/24 13:52 Resp 16 01/13/24 13:52 BP 155/99 01/13/24 13:52 Pulse Ox 97 01/13/24 13:52 O2 Del Method Room Air 01/13/24 06:00 Data NPU 01/01/24 08:01 01/01/24 08:01 A&P Assessment and plan (1) Schizophrenia: Qualifiers: Schizophrenia type: disorganized schizophrenia Qualified Code(s): F20.1 - Disorganized schizophrenia (2) Acute psychosis: (3) Suicidal ideation: (4) Major depressive disorder, recurrent, severe with psychotic symptoms: (5) Cannabis use disorder, moderate, in early remission, dependence: (6) Nicotine dependence, unspecified, uncomplicated: (7) Cluster A personality disorder in adult: (8) Generalized anxiety disorder: (9) Inhalant use disorder, severe, in early remission, dependence: (10) Alcohol use disorder: (11) Cannabis use disorder: (12) Suicidal ideation: Plan This is a 28-year-old white male well known to the neuropsychiatric unit with known history of depression, psychosis, addiction and residential instability who presents less than a month since his last hospitalization here off his medication for a few days reportedly feeling overwhelmed with suicidal ideation along with active psychosis. 1.? Continue current medications. Last Haldol 200mg injection was 12/23/2023. D/C Haldol oral and begin seroquel 200mg at night. Continue Prozac to 60mg daily. Continue to monitor for EPS symptoms. 2. Continue one-to-one. Will consider returning back to every 15 minute checks today. 3.? Encourage individual, group and milieu therapies. 4.? Encourage sober living treatment after discharge at the highest level of care to which he is willing to commit. 5.? Work with social work team to identify any possible residential options given some part of his issues seems to stem around homelessness. Current plan is for him to return to [facility]. 6. He had a visit from what appears to be case management on they were invited to evaluate him on the premises if that would expedite him having that additional resources outpatient. Involuntary Hold Information 2 96 Hour Hold: 96 Hour Involuntary Admission: No 96 Hour Hold Ending Date: 0 06/05/23 96 Hour Hold Ending Time: 20:37 Attestations NPU 2 Medical Necessity Statement*: Inpatient hospitalization is medically necessary and the clinically appropriate intervention at this time. We will monitor and make medication changes as indicated.? The patient's likely length of stay is 3-5 days. Coding Level of Care Code Acute Code for [facility] Diagnoses 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 Acute psychosis F23 Suicidal ideation R45.851 Major depressive disorder, recurrent, severe with psychotic symptoms F33.3 Cannabis use disorder, moderate, in early remission, dependence F12.21 Nicotine dependence, unspecified, uncomplicated F17.200 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 Inhalant use disorder, severe, in early remission, dependence F18.21 Alcohol use disorder F10.90 Cannabis use disorder F12.90
[2024-01-13 19:26] VITALS: BP 107/66; PULSE 87; RESP 14; TEMP 36.6; O2SAT 100
[2024-01-13 19:28] VITALS: BP 111/66; PULSE 64; RESP 17; TEMP 36.6; O2SAT 96
[2024-01-14 06:00] VITALS: BP 132/78; PULSE 63; RESP 16; O2SAT 97
[2024-01-14] MEDS: benztropine 1 mg Tablet PO ×2 (08:26→18:14)
[2024-01-14] MEDS: haloperidol 5 mg Tablet 2.5 MG PO (08:26)
[2024-01-14] MEDS: fluoxetine 20 mg Capsule 60 MG PO (08:26)
[2024-01-14] MEDS: nicotine 4 mg lozenge MUCOUS MEM ×4 (08:26→21:25)
--- NOTE | 2024-01-14 13:09 | P.NPUPN_ITS ---
Subjective NPU 2 Subjective: 28-year-old white male with a history of multiple inpatient hospitalizations with a diagnosis of schizoaffective disorder admitted with suicidal ideation. Patient continued to endorse having suicidal thoughts. He had reported that the voices were faint. He had continued to report having excessive thoughts about the past that appeared to trigger his suicidal thoughts. He had continued to endorse some paranoia and odd beliefs. He had been less isolative and engaged more in his self-care. He had continued to endorse feeling hopeless. Mental Status Exam 2 MSE Comments: This is an obese white male in hospital scrubs with improved grooming and seen on the milieu today. No abnormal movements other than mild psychomotor retardation. He was cooperative with exam in mild to moderate distress. Speech was diminished in rate but more spontaneous, monotone in quality, and normal in volume. Mood described as depressed. His affect was blunted. Thought process was linear and organized. Thought content: Patient endorsed continued suicidal thoughts with no active plan endorsed. He minimized any homicidal ideation. There were no delusions reported or noted, he denied any visual hallucinations and reported auditory hallucinations. Attention and concentration were limited and memory appeared mostly reliable but were not formally tested. He is alert and oriented x3. Insight was poor. Judgment and impulse control are limited. Vitals/I&O/Wt Last Vital Signs Temp 97.8 F 01/13/24 19:28 Pulse 63 01/14/24 06:00 Resp 16 01/14/24 06:00 BP 132/78 01/14/24 06:00 Pulse Ox 97 01/14/24 06:00 O2 Del Method Room Air 01/14/24 06:00 Data NPU 01/01/24 08:01 01/01/24 08:01 A&P Assessment and plan (1) Schizophrenia: Qualifiers: Schizophrenia type: disorganized schizophrenia Qualified Code(s): F20.1 - Disorganized schizophrenia (2) Acute psychosis: (3) Suicidal ideation: (4) Major depressive disorder, recurrent, severe with psychotic symptoms: (5) Cannabis use disorder, moderate, in early remission, dependence: (6) Nicotine dependence, unspecified, uncomplicated: (7) Cluster A personality disorder in adult: (8) Generalized anxiety disorder: (9) Inhalant use disorder, severe, in early remission, dependence: (10) Alcohol use disorder: (11) Cannabis use disorder: (12) Suicidal ideation: Plan This is a 28-year-old white male well known to the neuropsychiatric unit with known history of depression, psychosis, addiction and residential instability who presents less than a month since his last hospitalization here off his medication for a few days reportedly feeling overwhelmed with suicidal ideation along with active psychosis. 1.? Continue current medications. Last Haldol 200mg injection was 12/23/2023. D/C Haldol oral and continue seroquel 100mg at night. Continue Prozac to 60mg daily. Continue to monitor for EPS symptoms. 2. Continue one-to-one. Will consider returning back to every 15 minute checks today. 3.? Encourage individual, group and milieu therapies. 4.? Encourage sober living treatment after discharge at the highest level of care to which he is willing to commit. 5.? Work with social work team to identify any possible residential options given some part of his issues seems to stem around homelessness. Current plan is for him to return to [facility] [place] [facility]. 6. He had a visit from what appears to be case management on they were invited to evaluate him on the premises if that would expedite him having that additional resources outpatient. Involuntary Hold Information 2 96 Hour Hold: 96 Hour Involuntary Admission: No 96 Hour Hold Ending Date: 0 06/05/23 96 Hour Hold Ending Time: 20:37 Attestations NPU 2 Medical Necessity Statement*: Inpatient hospitalization is medically necessary and the clinically appropriate intervention at this time. We will monitor and make medication changes as indicated.? The patient's likely length of stay is 3-5 days. Coding Level of Care Code Acute Code for [facility] Diagnoses 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 Acute psychosis F23 Suicidal ideation R45.851 Major depressive disorder, recurrent, severe with psychotic symptoms F33.3 Cannabis use disorder, moderate, in early remission, dependence F12.21 Nicotine dependence, unspecified, uncomplicated F17.200 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 Inhalant use disorder, severe, in early remission, dependence F18.21 Alcohol use disorder F10.90 Cannabis use disorder F12.90
[2024-01-14 13:55] VITALS: BP 127/83; PULSE 86; RESP 18; TEMP 36.7; O2SAT 97
--- NOTE | 2024-01-14 18:24 | PC.NURSE ---
ROOM SEARCHED BY STAFF NO CONTRABAND FOUND.
[2024-01-14] MEDS: quetiapine 100 mg Tablet PO (20:25)
[2024-01-14 20:42] VITALS: BP 131/83; PULSE 99; RESP 18; O2SAT 96
[2024-01-15 06:00] VITALS: BP 112/63; PULSE 58; RESP 14; O2SAT 98
[2024-01-15] MEDS: fluoxetine 20 mg Capsule 60 MG PO (08:35)
[2024-01-15] MEDS: nicotine 4 mg lozenge MUCOUS MEM ×2 (08:36→15:25)
[2024-01-15] MEDS: benztropine 1 mg Tablet PO ×2 (08:36→17:41)
[2024-01-15] MEDS: nicotine 2 mg Gum BUCCAL (13:23)
[2024-01-15 14:00] VITALS: BP 135/84; PULSE 77; RESP 16; TEMP 36.6; O2SAT 96
--- NOTE | 2024-01-15 17:35 | P.NPUPN_ITS ---
Subjective NPU 2 Subjective: 28-year-old white male with a history of multiple inpatient hospitalizations with a diagnosis of schizoaffective disorder admitted with suicidal ideation. The patient had reported less intense voices but continued to report depressed mood. He had continued to report having thoughts of suicide. He had reported no change overall although staff continue to note that the patient had ported some improvement and had been spending less time in his room with decreased isolation and increased attendance in groups. He had reported that the voices continued to remain present although he reported having periods where the voices had disappeared during parts of the day. Mental Status Exam 2 MSE Comments: This is an obese white male in hospital scrubs with improved grooming and seen on the milieu today. No abnormal movements other than mild psychomotor retardation. He was cooperative with exam in mild to moderate distress. Speech was diminished in rate but more spontaneous, monotone in quality, and normal in volume. Mood described as okay. His affect was blunted and mood incongruent. Thought process was linear and organized. Thought content: Patient endorsed continued suicidal thoughts with no active plan endorsed. He minimized any homicidal ideation. There were no delusions reported or noted, he denied any visual hallucinations and reported auditory hallucinations. Attention and concentration were limited and memory appeared mostly reliable but were not formally tested. He is alert and oriented x3. Insight was poor. Judgment and impulse control are limited. Vitals/I&O/Wt Last Vital Signs Temp 98 F 01/15/24 14:00 Pulse 77 01/15/24 14:00 Resp 16 01/15/24 14:00 BP 135/84 01/15/24 14:00 Pulse Ox 96 01/15/24 14:00 O2 Del Method Room Air 01/15/24 14:00 Data NPU 01/01/24 08:01 01/01/24 08:01 A&P Assessment and plan (1) Schizophrenia: Qualifiers: Schizophrenia type: disorganized schizophrenia Qualified Code(s): F20.1 - Disorganized schizophrenia (2) Acute psychosis: (3) Suicidal ideation: (4) Major depressive disorder, recurrent, severe with psychotic symptoms: (5) Cannabis use disorder, moderate, in early remission, dependence: (6) Nicotine dependence, unspecified, uncomplicated: (7) Cluster A personality disorder in adult: (8) Generalized anxiety disorder: (9) Inhalant use disorder, severe, in early remission, dependence: (10) Alcohol use disorder: (11) Cannabis use disorder: (12) Suicidal ideation: Plan This is a 28-year-old white male well known to the neuropsychiatric unit with known history of depression, psychosis, addiction and residential instability who presents less than a month since his last hospitalization here off his medication for a few days reportedly feeling overwhelmed with suicidal ideation along with active psychosis. 1.? Continue current medications. Last Haldol 200mg injection was 12/23/2023. Increase seroquel 150mg at night. Continue Prozac to 60mg daily. Continue to monitor for EPS symptoms. 2. Continue one-to-one. Will consider returning back to every 15 minute checks today. 3.? Encourage individual, group and milieu therapies. 4.? Encourage sober living treatment after discharge at the highest level of care to which he is willing to commit. 5.? Work with social work team to identify any possible residential options given some part of his issues seems to stem around homelessness. [place] plan [place] [facility] [place] 6. He had a visit from what appears to be case management on they were invited to evaluate him on the premises if that would expedite him having that additional resources outpatient. Involuntary Hold Information 2 96 Hour Hold: 96 Hour Involuntary Admission: No 96 Hour Hold Ending Date: 0 06/05/23 96 Hour Hold Ending Time: 20:37 Attestations U 2 Medical Necessity Statement*: Inpatient hospitalization is medically necessary and the clinically appropriate intervention at this time. We will monitor and make medication changes as indicated.? The patient's likely length of stay is 3-5 days. Coding Level of Care Code Acute Code for [facility] Diagnoses 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 Acute psychosis F23 Suicidal ideation R45.851 Major depressive disorder, recurrent, severe with psychotic symptoms F33.3 Cannabis use disorder, moderate, in early remission, dependence F12.21 Nicotine dependence, unspecified, uncomplicated F17.200 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 Inhalant use disorder, severe, in early remission, dependence F18.21 Alcohol use disorder F10.90 Cannabis use disorder F12.90
[2024-01-15] MEDS: quetiapine 100 mg Tablet 150 MG PO (19:55)
[2024-01-15 20:02] VITALS: BP 121/72; PULSE 60; RESP 16; TEMP 36.4; O2SAT 96
[2024-01-16 06:00] VITALS: BP 112/71; PULSE 53; RESP 17; TEMP 36.6; O2SAT 98
[2024-01-16] MEDS: benztropine 1 mg Tablet PO ×2 (08:02→18:45)
[2024-01-16] MEDS: fluoxetine 20 mg Capsule 60 MG PO (08:02)
--- NOTE | 2024-01-16 13:30 | W.PM.NPUPNS ---
Subjective NPU Subjective: 28-year-old white male with a history of multiple inpatient hospitalizations with a diagnosis of schizoaffective disorder admitted with suicidal ideation. Patient had continued to report his mood is 3 out of 10. He reported that he has been hearing voices still telling him to hurt himself. He had endorsed having continued suicidal thoughts. He had reported struggles with concentration. He did report feeling less sedated. He had reported being able to fall asleep without difficulty. No side effects reported from the combination of Haldol and Seroquel currently. Mental Status Exam MSE Comments: This is an obese white male in hospital scrubs with improved grooming and seen on the milieu today. No abnormal movements other than mild psychomotor retardation. He was cooperative with exam in mild to moderate distress. Speech was diminished in rate monotone in quality, and normal in volume. Mood described as still depressed. His affect was blunted and mood congruent. Thought process was linear and organized. Thought content: Patient endorsed continued suicidal thoughts with no active plan endorsed. He minimized any homicidal ideation. There were no delusions reported or noted, he denied any visual hallucinations and reported auditory hallucinations. Attention and concentration were limited and memory appeared mostly reliable but were not formally tested. He is alert and oriented x3. Insight was poor. Judgment and impulse control are limited. Vitals/I&O/Wt Last Vital Signs Temp 97.8 F 01/16/24 06:00 Pulse 53 L 01/16/24 06:00 Resp 17 01/16/24 06:00 BP 112/71 01/16/24 06:00 Pulse Ox 98 01/16/24 06:00 O2 Del Method Room Air 01/15/24 14:00 Data NPU 01/01/24 08:01 01/01/24 08:01 A&P Assessment and plan (1) Schizophrenia: Qualifiers: Schizophrenia type: disorganized schizophrenia Qualified Code(s): F20.1 - Disorganized schizophrenia (2) Acute psychosis: (3) Suicidal ideation: (4) Major depressive disorder, recurrent, severe with psychotic symptoms: (5) Cannabis use disorder, moderate, in early remission, dependence: (6) Nicotine dependence, unspecified, uncomplicated: (7) Cluster A personality disorder in adult: (8) Generalized anxiety disorder: (9) Inhalant use disorder, severe, in early remission, dependence: (10) Alcohol use disorder: (11) Cannabis use disorder: (12) Suicidal ideation: Plan This is a 28-year-old white male well known to the neuropsychiatric unit with known history of depression, psychosis, addiction and residential instability who presents less than a month since his last hospitalization here off his medication for a few days reportedly feeling overwhelmed with suicidal ideation along with active psychosis. 1.? Continue current medications. Last Haldol 200mg injection was 12/23/2023. Continue seroquel 150mg at night with continued titration upward. Continue Prozac to 60mg daily. Continue to monitor for EPS symptoms. 2. Continue one-to-one. Will consider returning back to every 15 minute checks today. 3.? Encourage individual, group and milieu therapies. 4.? Encourage sober living treatment after discharge at the highest level of care to which he is willing to commit. 5.? Work with social work team to identify any possible residential options given some part of his issues seems to stem around homelessness. Current plan is for him to return [place] [facility] [place]. 6. He had a visit from what appears to be case management on they were invited to evaluate him on the premises if that would expedite him having that additional resources outpatient. Involuntary Hold Information 96 Hour Hold: 96 Hour Involuntary Admission: No 96 Hour Hold Ending Date: 06/05/23 96 Hour Hold Ending Time: 20:37 Attestations [facility] Medical Necessity Statement*: Inpatient hospitalization is medically necessary and the clinically appropriate intervention at this time. We will monitor and make medication changes as indicated.? The patient's likely length of stay is 3-5 days. Coding Level of Care Code Acute Code for [facility] Diagnoses 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 Acute psychosis F23 Suicidal ideation R45.851 Major depressive disorder, recurrent, severe with psychotic symptoms F33.3 Cannabis use disorder, moderate, in early remission, dependence F12.21 Nicotine dependence, unspecified, uncomplicated F17.200 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 Inhalant use disorder, severe, in early remission, dependence F18.21 Alcohol use disorder F10.90 Cannabis use disorder F12.90
[2024-01-16 14:00] VITALS: BP 118/70; PULSE 67; RESP 20; TEMP 36.3; O2SAT 98
[2024-01-16] MEDS: nicotine 4 mg lozenge MUCOUS MEM (14:47)
--- NOTE | 2024-01-16 18:32 | PC.NURSE ---
ROOM SEARCH PREFORMED BY STAFF NO CONTRABAND FOUND.
[2024-01-16 20:28] VITALS: BP 111/67; PULSE 65; RESP 17; TEMP 36.4; O2SAT 97
[2024-01-16] MEDS: quetiapine 100 mg Tablet 150 MG PO (20:57)
[2024-01-17 06:00] VITALS: BP 115/73; PULSE 55; RESP 16; TEMP 36.4; O2SAT 96
[2024-01-17] MEDS: fluoxetine 20 mg Capsule 60 MG PO (09:45)
[2024-01-17] MEDS: nicotine 4 mg lozenge MUCOUS MEM ×4 (09:45→18:12)
[2024-01-17] MEDS: benztropine 1 mg Tablet PO ×2 (09:45→17:45)
--- NOTE | 2024-01-17 13:32 | W.PM.NPUPNS ---
Subjective NPU Subjective: 28-year-old white male with a history of multiple inpatient hospitalizations with a diagnosis of schizoaffective disorder admitted with suicidal ideation. The patient reported having continued suicidal thoughts. He reported continued depression. He had continued to require prompting and motivation to leave his room as he had spent most of the day sleeping. He reported no side effects from his medication at this time. He continued to endorse some feelings of hopelessness. He reported adequate sleep. Mental Status Exam MSE Comments: This is an obese white male in hospital scrubs with improved grooming and seen in bedroom lying down. No abnormal movements other than mild psychomotor retardation. He was cooperative with exam in milddistress. Speech was diminished in rate monotone in quality, and normal in volume. Mood described as depressed. His affect was blunted and mood congruent. Thought process was linear and organized. Thought content: Patient endorsed continued suicidal thoughts with no active plan endorsed. He minimized any homicidal ideation. There were no delusions reported or noted, he denied any visual hallucinations and reported infrequent auditory hallucinations. Attention and concentration were limited and memory appeared mostly reliable but were not formally tested. He is alert and oriented x3. Insight was poor. Judgment and impulse control are limited. Vitals/I&O/Wt Last Vital Signs Temp 97.5 F L 01/17/24 06:00 Pulse 55 L 01/17/24 06:00 Resp 16 01/17/24 06:00 BP 115/73 01/17/24 06:00 Pulse Ox 96 01/17/24 06:00 O2 Del Method Room Air 01/15/24 14:00 Weight last 48 hrs Weight 132.903 kg Data NPU 01/01/24 08:01 01/01/24 08:01 A&P Assessment and plan (1) Schizophrenia: Qualifiers: Schizophrenia type: disorganized schizophrenia Qualified Code(s): F20.1 - Disorganized schizophrenia (2) Acute psychosis: (3) Suicidal ideation: (4) Major depressive disorder, recurrent, severe with psychotic symptoms: (5) Cannabis use disorder, moderate, in early remission, dependence: (6) Nicotine dependence, unspecified, uncomplicated: (7) Cluster A personality disorder in adult: (8) Generalized anxiety disorder: (9) Inhalant use disorder, severe, in early remission, dependence: (10) Alcohol use disorder: (11) Cannabis use disorder: (12) Suicidal ideation: Plan This is a 28-year-old white male well known to the neuropsychiatric unit with known history of depression, psychosis, addiction and residential instability who presents less than a month since his last hospitalization here off his medication for a few days reportedly feeling overwhelmed with suicidal ideation along with active psychosis. Increase seroquel to 200mg at night with continued titration upward. Continue Prozac to 60mg daily. Continue to monitor for EPS symptoms. 2. Continue one-to-one. Will consider returning back to every 15 minute checks today. 3.? Encourage individual, group and milieu therapies. 4.? Encourage sober living treatment after discharge at the highest level of care to which he is willing to commit. 5.? Work with social work team to identify any possible residential options given some part of his issues seems to stem around homelessness. Current plan is for him to return [place] [facility] [place]. 6. He had a visit from what appears to be case management on they were invited to evaluate him on the premises if that would expedite him having that additional resources outpatient. Involuntary Hold Information 96 Hour Hold: 96 Hour Involuntary Admission: No 96 Hour Hold Ending Date: 06/05/23 96 Hour Hold Ending Time: 20:37 Attestations U Medical Necessity Statement*: Inpatient hospitalization is medically necessary and the clinically appropriate intervention at this time. We will monitor and make medication changes as indicated.? The patient's likely length of stay is 3-5 days. Coding Level of Care Code Acute Code for [facility] Diagnoses 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 Acute psychosis F23 Suicidal ideation R45.851 Major depressive disorder, recurrent, severe with psychotic symptoms F33.3 Cannabis use disorder, moderate, in early remission, dependence F12.21 Nicotine dependence, unspecified, uncomplicated F17.200 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 Inhalant use disorder, severe, in early remission, dependence F18.21 Alcohol use disorder F10.90 Cannabis use disorder F12.90
[2024-01-17 14:00] VITALS: BP 123/79; PULSE 80; RESP 18; TEMP 36.3; O2SAT 96
[2024-01-17 20:15] VITALS: BP 142/90; PULSE 87; RESP 18; TEMP 36.4; O2SAT 97
[2024-01-17] MEDS: quetiapine 100 mg Tablet 200 MG PO (20:39)
[2024-01-18 06:00] VITALS: BP 119/72; PULSE 52; RESP 18; TEMP 36.4; O2SAT 97
[2024-01-18] MEDS: nicotine 4 mg lozenge MUCOUS MEM ×5 (08:35→19:47)
[2024-01-18] MEDS: fluoxetine 20 mg Capsule 60 MG PO (08:35)
[2024-01-18] MEDS: benztropine 1 mg Tablet PO ×2 (08:35→17:14)
--- NOTE | 2024-01-18 10:53 | PC.NURSE ---
room search preformed no contra band found. beds stripped and cleaned.
[2024-01-18 14:00] VITALS: BP 135/82; PULSE 87; RESP 16; TEMP 36.6; O2SAT 97
--- NOTE | 2024-01-18 14:33 | W.PM.NPUPNS ---
Subjective NPU Subjective: 28-year-old white male with a history of multiple inpatient hospitalizations with a diagnosis of schizoaffective disorder admitted with suicidal ideation. He had continued to report depression. He had reported having continued suicidal thoughts. He reports that the voices had been better. He had continued to isolate himself on the milieu. He reported no change in motivation and continue to report some feelings of hopelessness. He had reported difficulties with concentration but stated today that he was not distracted by voices. He had stated that he continued to ruminate about his previous issues with his family. He had reported that he had not engaged in psychotherapy in the past. Mental Status Exam MSE Comments: This is an obese white male in hospital scrubs with improved grooming and seen in his bedroom lying in bed. No abnormal involuntary motor movements other than mild psychomotor retardation. He was cooperative with exam in mild distress. Speech was diminished in rate monotone in quality, and normal in volume. Mood described as depressed. His affect was blunted and mood congruent. Thought process was linear and organized. Thought content: Patient endorsed continued suicidal thoughts with no active plan endorsed. He minimized any homicidal ideation. There were no delusions reported or noted, he denied any visual hallucinations and reported infrequent auditory hallucinations. Attention and concentration were limited and memory appeared mostly reliable but were not formally tested. He is alert and oriented x3. Insight was poor. Judgment and impulse control are limited. Vitals/I&O/Wt Last Vital Signs Temp 97.6 F 01/18/24 06:00 Pulse 52 L 01/18/24 06:00 Resp 18 01/18/24 06:00 BP 119/72 01/18/24 06:00 Pulse Ox 97 01/18/24 06:00 O2 Del Method Room Air 01/18/24 06:00 Weight last 48 hrs Weight 132.903 kg Data NPU 01/01/24 08:01 01/01/24 08:01 A&P Assessment and plan (1) Schizophrenia: Qualifiers: Schizophrenia type: disorganized schizophrenia Qualified Code(s): F20.1 - Disorganized schizophrenia (2) Acute psychosis: (3) Suicidal ideation: (4) Major depressive disorder, recurrent, severe with psychotic symptoms: (5) Cannabis use disorder, moderate, in early remission, dependence: (6) Nicotine dependence, unspecified, uncomplicated: (7) Cluster A personality disorder in adult: (8) Generalized anxiety disorder: (9) Inhalant use disorder, severe, in early remission, dependence: (10) Alcohol use disorder: (11) Cannabis use disorder: (12) Suicidal ideation: Plan This is a 28-year-old white male well known to the neuropsychiatric unit with known history of depression, psychosis, addiction and residential instability who presents less than a month since his last hospitalization here off his medication for a few days reportedly feeling overwhelmed with suicidal ideation along with active psychosis. Increase seroquel to 300mg at night with continued titration upward. Continue Prozac to 60mg daily. Continue to monitor for EPS symptoms. Continue cogentin as prescribed. 2. Continue one-to-one. Will consider returning back to every 15 minute checks today. 3.? Encourage individual, group and milieu therapies. 4.? Encourage sober living treatment after discharge at the highest level of care to which he is willing to commit. 5.? Work with social work team to identify any possible residential options given some part of his issues seems to stem around homelessness. Current plan is for him to return to [facility] [place]. 6. He had a visit from what appears to be case management on they were invited to evaluate him on the premises if that would expedite him having that additional resources outpatient. Involuntary Hold Information 96 Hour Hold: 96 Hour Involuntary Admission: No 96 Hour Hold Ending Date: 06/05/23 96 Hour Hold Ending Time: 20:37 Attestations U Medical Necessity Statement*: Inpatient hospitalization is medically necessary and the clinically appropriate intervention at this time. We will monitor and make medication changes as indicated.? The patient's likely length of stay is 3-5 days. Coding Level of Care Code Acute Code for [facility] Diagnoses 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 Acute psychosis F23 Suicidal ideation R45.851 Major depressive disorder, recurrent, severe with psychotic symptoms F33.3 Cannabis use disorder, moderate, in early remission, dependence F12.21 Nicotine dependence, unspecified, uncomplicated F17.200 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 Inhalant use disorder, severe, in early remission, dependence F18.21 Alcohol use disorder F10.90 Cannabis use disorder F12.90
[2024-01-18] MEDS: hyDROXYzine 25 mg Capsule 50 MG PO (16:38)
[2024-01-18] MEDS: quetiapine 300 mg Tablet PO (19:47)
[2024-01-18 19:54] VITALS: BP 135/87; PULSE 96; RESP 17; TEMP 36.5; O2SAT 97
[2024-01-19 06:00] VITALS: BP 117/71; PULSE 62; RESP 17; TEMP 36.4; O2SAT 97
[2024-01-19] MEDS: benztropine 1 mg Tablet PO ×2 (07:53→17:54)
[2024-01-19] MEDS: fluoxetine 20 mg Capsule 60 MG PO (07:53)
[2024-01-19] MEDS: nicotine 4 mg lozenge MUCOUS MEM ×5 (07:53→19:41)
[2024-01-19 14:00] VITALS: BP 122/79; PULSE 81; RESP 16; TEMP 36.8; O2SAT 97
--- NOTE | 2024-01-19 16:31 | P.NPUPN_ITS ---
Subjective NPU 2 Subjective: 28-year-old white male with a history of multiple inpatient hospitalizations with a diagnosis of schizoaffective disorder admitted with suicidal ideation. Patient had reported continued depression and suicidal ideation. He had reported that he continued to feel hopeless and stated that he had anxiety and continued frustration over not being able to get a job. He had stated that he was concerned about his future and reported his lack of support continued to make him worried that he would end up homeless for the rest of his life. Patient appeared agreeable to considering vocational rehabilitation and stated that he would like to get a job that did not involve the patient interacting with too many other human beings. He had continued to report a lack of interest in previously enjoyable endeavors. He had reported that the voices had been less distracting to him at this time. Mental Status Exam 2 MSE Comments: This is an obese white male in hospital scrubs with improved grooming and seen outside of his room today. No abnormal involuntary motor movements other than mild psychomotor retardation. He was cooperative with exam in mild distress. Speech was diminished in rate, monotone in quality, and normal in volume. Mood described as depressed. His affect remained flat. Thought process was linear and organized. Thought content: Patient endorsed fleeting suicidal thoughts with no active plan endorsed. He minimized any homicidal ideation. There were no delusions reported or noted, he denied any visual hallucinations and reported infrequent auditory hallucinations. Attention and concentration were limited and memory appeared mostly reliable but were not formally tested. He is alert and oriented x3. Insight was poor. Judgment remained poor and impulse control is guarded. Vitals/I&O/Wt Last Vital Signs Temp 98.2 F 01/19/24 14:00 Pulse 81 01/19/24 14:00 Resp 16 01/19/24 14:00 BP 122/79 01/19/24 14:00 Pulse Ox 97 01/19/24 14:00 O2 Del Method Room Air 01/19/24 14:00 Data NPU 01/01/24 08:01 01/01/24 08:01 A&P Assessment and plan (1) Schizophrenia: Qualifiers: Schizophrenia type: disorganized schizophrenia Qualified Code(s): F20.1 - Disorganized schizophrenia (2) Acute psychosis: (3) Suicidal ideation: (4) Major depressive disorder, recurrent, severe with psychotic symptoms: (5) Cannabis use disorder, moderate, in early remission, dependence: (6) Nicotine dependence, unspecified, uncomplicated: (7) Cluster A personality disorder in adult: (8) Generalized anxiety disorder: (9) Inhalant use disorder, severe, in early remission, dependence: (10) Alcohol use disorder: (11) Cannabis use disorder: (12) Suicidal ideation: Plan This is a 28-year-old white male well known to the neuropsychiatric unit with known history of depression, psychosis, addiction and residential instability who presents less than a month since his last hospitalization here off his medication for a few days reportedly feeling overwhelmed with suicidal ideation along with active psychosis. 1. Continue seroquel to 300mg at night with continued titration upward. Continue Prozac to 60mg daily. Continue to monitor for EPS symptoms. Continue cogentin as prescribed. Haldol decanoate 200mg due tommorow IM. 2. Continue one-to-one. Will consider returning back to every 15 minute checks today. 3.? Encourage individual, group and milieu therapies. 4.? Encourage sober living treatment after discharge at the highest level of care to which he is willing to commit. 5.? Work with social work team to identify any possible residential options given some part of his issues seems to stem around homelessness. Current plan is for him to return [place] [facility] [place]. 6. He had a visit from what appears to be case management on they were invited to evaluate him on the premises if that would expedite him having that additional resources outpatient. Involuntary Hold Information 2 96 Hour Hold: 96 Hour Involuntary Admission: No 96 Hour Hold Ending Date: 0 06/05/23 96 Hour Hold Ending Time: 20:37 Attestations NPU 2 Medical Necessity Statement*: Inpatient hospitalization is medically necessary and the clinically appropriate intervention at this time. We will monitor and make medication changes as indicated.? The patient's likely length of stay is 3-5 days. Coding Level of Care Code Acute Code for [facility] Diagnoses 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 Acute psychosis F23 Suicidal ideation R45.851 Major depressive disorder, recurrent, severe with psychotic symptoms F33.3 Cannabis use disorder, moderate, in early remission, dependence F12.21 Nicotine dependence, unspecified, uncomplicated F17.200 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 Inhalant use disorder, severe, in early remission, dependence F18.21 Alcohol use disorder F10.90 Cannabis use disorder F12.90
[2024-01-19 19:31] VITALS: BP 130/80; PULSE 88; RESP 17; TEMP 36.4; O2SAT 98
[2024-01-19] MEDS: quetiapine 300 mg Tablet PO (19:42)
[2024-01-19] MEDS: docusate sodium 100 mg Capsule PO (19:44)
[2024-01-20 06:00] VITALS: BP 122/84; PULSE 56; RESP 16; TEMP 36.4; O2SAT 98
[2024-01-20] MEDS: fluoxetine 20 mg Capsule 60 MG PO (08:03)
[2024-01-20] MEDS: nicotine 4 mg lozenge MUCOUS MEM ×5 (08:04→19:24)
[2024-01-20] MEDS: benztropine 1 mg Tablet PO ×2 (08:04→17:44)
[2024-01-20] MEDS: haloperidol decanoate 100 mg/mL INJ 1 mL 200 MG IM (11:06)
[2024-01-20 13:29] VITALS: BP 120/76; PULSE 63; RESP 16; TEMP 36.5; O2SAT 96
--- NOTE | 2024-01-20 16:51 | P.NPUPN_ITS ---
Subjective NPU 2 Subjective: 28-year-old white male with a history of multiple inpatient hospitalizations with a diagnosis of schizoaffective disorder admitted with suicidal ideation. Patient had reported that he had a few thoughts of suicide but no extended periods of time of ruminating about wanting to harm himself. He had reported that his depression remain present. He had reported occasional auditory hallucinations calling his name but stated that he had them less frequently. He reported adequate sleep and did not endorse any excess sedation. He was able to attend groups. He had reported feeling more hopeful about the future. Mental Status Exam 2 MSE Comments: This is an obese white male in hospital scrubs with improved grooming and seen outside of his room today. No abnormal involuntary motor movements other than mild psychomotor retardation. He was cooperative with exam in mild distress. Speech was normal in rate, monotone in quality, and normal in volume. Mood described as a little better. His affect was restricted. Thought process was linear and organized. Thought content: Patient endorsed fleeting suicidal thoughts with no active plan endorsed. He minimized any homicidal ideation. There were no delusions reported or noted, he denied any visual hallucinations and reported infrequent auditory hallucinations. Attention and concentration were limited and memory appeared mostly reliable but were not formally tested. He is alert and oriented x3. Insight was poor. Judgment remained poor and impulse control is guarded. Vitals/I&O/Wt Last Vital Signs Temp 97.7 F 01/20/24 13:29 Pulse 63 01/20/24 13:29 Resp 16 01/20/24 13:29 BP 120/76 01/20/24 13:29 Pulse Ox 96 01/20/24 13:29 O2 Del Method Room Air 01/20/24 13:29 01/20/24 01/20/24 01/20/24 06:59 14:59 22:59 Intake Total 960 / 960 Balance 960 / 960 Data NPU 01/01/24 08:01 01/01/24 08:01 A&P Assessment and plan (1) Schizophrenia: Qualifiers: Schizophrenia type: disorganized schizophrenia Qualified Code(s): F20.1 - Disorganized schizophrenia (2) Acute psychosis: (3) Suicidal ideation: (4) Major depressive disorder, recurrent, severe with psychotic symptoms: (5) Cannabis use disorder, moderate, in early remission, dependence: (6) Nicotine dependence, unspecified, uncomplicated: (7) Cluster A personality disorder in adult: (8) Generalized anxiety disorder: (9) Inhalant use disorder, severe, in early remission, dependence: (10) Alcohol use disorder: (11) Cannabis use disorder: (12) Suicidal ideation: Plan This is a 28-year-old white male well known to the neuropsychiatric unit with known history of depression, psychosis, addiction and residential instability who presents less than a month since his last hospitalization here off his medication for a few days reportedly feeling overwhelmed with suicidal ideation along with active psychosis. 1. Increase Seroquel to 400 mg at night today. Continue Prozac to 60mg daily. Continue to monitor for EPS symptoms. Continue cogentin as prescribed. Haldol decanoate 200mg given today (01/20/24) 2. Continue one-to-one. Will consider returning back to every 15 minute checks today. 3.? Encourage individual, group and milieu therapies. 4.? Encourage sober living treatment after discharge at the highest level of care to which he is willing to commit. 5.? Work with social work team to identify any possible residential options given some part of his issues seems to stem around homelessness. Current plan is for him to return [place] [facility] [place] 6. He had a visit from what appears to be case management on they were invited to evaluate him on the premises if that would expedite him having that additional resources outpatient. Involuntary Hold Information 2 96 Hour Hold: 96 Hour Involuntary Admission: No 96 Hour Hold Ending Date: 0 06/05/23 96 Hour Hold Ending Time: 20:37 Attestations NPU 2 Medical Necessity Statement*: Inpatient hospitalization is medically necessary and the clinically appropriate intervention at this time. We will monitor and make medication changes as indicated.? The patient's likely length of stay is 3-5 days. Coding Level of Care Code Acute Code for [facility] Diagnoses 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 Acute psychosis F23 Suicidal ideation R45.851 Major depressive disorder, recurrent, severe with psychotic symptoms F33.3 Cannabis use disorder, moderate, in early remission, dependence F12.21 Nicotine dependence, unspecified, uncomplicated F17.200 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 Inhalant use disorder, severe, in early remission, dependence F18.21 Alcohol use disorder F10.90 Cannabis use disorder F12.90
[2024-01-20 19:46] VITALS: BP 120/67; PULSE 104; RESP 17; TEMP 36.3; O2SAT 97
[2024-01-20] MEDS: quetiapine 100 mg Tablet 400 MG PO (20:04)
[2024-01-21 06:00] VITALS: BP 98/60; PULSE 57; RESP 16; TEMP 36.4; O2SAT 98
[2024-01-21] MEDS: nicotine 4 mg lozenge MUCOUS MEM ×6 (08:45→20:52)
[2024-01-21] MEDS: fluoxetine 20 mg Capsule 60 MG PO (08:45)
[2024-01-21] MEDS: benztropine 1 mg Tablet PO ×2 (08:45→17:51)
--- NOTE | 2024-01-21 10:46 | P.NPUPN_ITS ---
Subjective NPU 2 Subjective: 28-year-old white male with a history of multiple inpatient hospitalizations with a diagnosis of schizoaffective disorder admitted with suicidal ideation. Patient reported his mood is 2 out of 10. He had reported that he continued to have infrequent thoughts of harming himself without any plan. He had reported some interest in considering vocational rehabilitation and stated that he would like to consider getting a job. Patient was able to attend groups. He reported no side effects from his medication. He reported feeling less sedated since the Haldol was discontinued. He was able to sleep through the night without any issue. He had reported that the voices remained and were present intermittently but did appear to resolve at times within the day. Mental Status Exam 2 MSE Comments: This is an obese white male in hospital scrubs with improved grooming and seen inside his room today. No abnormal involuntary motor movements other than mild psychomotor retardation. He was cooperative with exam in no acute distress. Speech was normal in rate, monotone in quality, and normal in volume. Mood described as okay His affect was restricted. Thought process was linear and organized. Thought content: Patient endorsed fleeting suicidal thoughts with no active plan endorsed. He minimized any homicidal ideation. There were no delusions reported or noted, he denied any visual hallucinations and reported infrequent auditory hallucinations. He did not appear to be responding to internal stimuli. Attention and concentration were limited and memory appeared mostly reliable but were not formally tested. He is alert and oriented x3. Insight was limited. Judgment remained poor and impulse control is guarded. Vitals/I&O/Wt Last Vital Signs Temp 97.5 F L 01/21/24 06:00 Pulse 57 L 01/21/24 06:00 Resp 16 01/21/24 06:00 BP 98/60 01/21/24 06:00 Pulse Ox 98 01/21/24 06:00 O2 Del Method Room Air 01/21/24 06:00 01/20/24 01/21/24 01/21/24 22:59 06:59 14:59 Intake Total 600 / 1560 Balance 600 / 1560 Data NPU 01/01/24 08:01 01/01/24 08:01 A&P Assessment and plan (1) Schizophrenia: Qualifiers: Schizophrenia type: disorganized schizophrenia Qualified Code(s): F20.1 - Disorganized schizophrenia (2) Acute psychosis: (3) Suicidal ideation: (4) Major depressive disorder, recurrent, severe with psychotic symptoms: (5) Cannabis use disorder, moderate, in early remission, dependence: (6) Nicotine dependence, unspecified, uncomplicated: (7) Cluster A personality disorder in adult: (8) Generalized anxiety disorder: (9) Inhalant use disorder, severe, in early remission, dependence: (10) Alcohol use disorder: (11) Cannabis use disorder: (12) Suicidal ideation: Plan This is a 28-year-old white male well known to the neuropsychiatric unit with known history of depression, psychosis, addiction and residential instability who presents less than a month since his last hospitalization here off his medication for a few days reportedly feeling overwhelmed with suicidal ideation along with active psychosis. 1. Continue Seroquel to 400 mg at night today. Continue Prozac to 60mg daily. Continue to monitor for EPS symptoms. Continue cogentin as prescribed. Haldol decanoate 200mg given on 01/20/24. 2. Continue one-to-one. Will consider returning back to every 15 minute checks today. 3.? Encourage individual, group and milieu therapies. 4.? Encourage sober living treatment after discharge at the highest level of care to which he is willing to commit. 5.? Work with social work team to identify any possible residential options given some part of his issues seems to stem around homelessness. Current plan is for [place] [facility] [place] 6. He had a visit from what appears to be case management on they were invited to evaluate him on the premises if that would expedite him having that additional resources outpatient. Involuntary Hold Information 2 96 Hour Hold: 96 Hour Involuntary Admission: No 96 Hour Hold Ending Date: 0 06/05/23 96 Hour Hold Ending Time: 20:37 Attestations NPU 2 Medical Necessity Statement*: Inpatient hospitalization is medically necessary and the clinically appropriate intervention at this time. We will monitor and make medication changes as indicated.? The patient's likely length of stay is 1-2 days. Coding Level of Care Code Acute Code for [facility] Diagnoses 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 Acute psychosis F23 Suicidal ideation R45.851 Major depressive disorder, recurrent, severe with psychotic symptoms F33.3 Cannabis use disorder, moderate, in early remission, dependence F12.21 Nicotine dependence, unspecified, uncomplicated F17.200 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 Inhalant use disorder, severe, in early remission, dependence F18.21 Alcohol use disorder F10.90 Cannabis use disorder F12.90
[2024-01-21 14:00] VITALS: BP 130/75; PULSE 81; RESP 17; TEMP 36.3; O2SAT 94
--- NOTE | 2024-01-21 17:48 | PC.NURSE ---
room searches preformed by staff. no contraband found during search.
[2024-01-21 20:06] VITALS: BP 126/81; PULSE 82; RESP 17; TEMP 36.3; O2SAT 95
[2024-01-21] MEDS: quetiapine 100 mg Tablet 400 MG PO (20:51)
[2024-01-21] MEDS: docusate sodium 100 mg Capsule PO (20:51)
[2024-01-22 06:00] VITALS: BP 101/60; PULSE 58; RESP 16; TEMP 36.4; O2SAT 96
[2024-01-22] MEDS: benztropine 1 mg Tablet PO (08:15)
[2024-01-22] MEDS: nicotine 4 mg lozenge MUCOUS MEM ×2 (08:15→12:44)
[2024-01-22] MEDS: fluoxetine 20 mg Capsule 60 MG PO (08:16)
[2024-01-22 14:00] VITALS: BP 123/75; PULSE 98; RESP 16; TEMP 36.6; O2SAT 96
--- NOTE | 2024-01-22 14:26 | W.PM.NPUDCS ---
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 06:00 O2 Del Method Room Air 01/22/24 06:00 Discharge Plan Discharge Patient Disposition: Home Condition: Stable Prescriptions: New quetiapine 400 mg tablet 400 mg PO BEDTIME 30 Days Qty: 30 1RF Continued benztropine 1 mg tablet 1 mg PO BID Qty: 60 1RF Discontinued haloperidol 5 mg tablet 5 mg PO BID Qty: 60 1RF No Action fluoxetine 20 mg capsule 20 mg PO TID Discharge Orders: Discharge Order (Routine); Ordered 01/22/24 Ordered By: Timur Huntley Referrals: Eli Sierra PMHNP [Staff Physician] - 01/26/24 9:15 am (Follow up. ) Discharge Diet: Regular Discharge Activity: Resume usual activity Patient Instructions: Opioid Safety Discharge Attestations [facility] Time Spent in Discharge Care*: less than 30 min Specific Discharge Activities: Specific discharge activities: educating patient, discussing with employment evaluator/case manager/social workers/dc planners, documenting/other paperwork and evaluating patient/reviewing data Coding Level of Care Code Acute Code for 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
[2024-01-22 14:49] VITALS: BP 101/60; PULSE 58; RESP 16; TEMP 36.4; O2SAT 96
== END 2024-01-22 16:12 | disposition home or self-care (01) | DRG 885 ==
LOC: ER 03:24 → NP 05:01
PROVIDERS: Admitting Provider Psychiatry & Neurology Psychiatry; Emergency Provider Internal Medicine; Visit Provider Psychiatry & Neurology Psychiatry
DX: F20.1 Disorganized schizophrenia (principal); R45.851 Suicidal ideations; Z59.00 Homelessness unspecified; F33.2 Major depressive disorder, recurrent severe without psychotic features; F12.91 Cannabis use, unspecified, in remission; Z72.0 Tobacco use; F60.89 Other specific personality disorders; F41.1 Generalized anxiety disorder; F10.90 Alcohol use, unspecified, uncomplicated
CPT/HCPCS: 36415; 80048; 80053; 80306; 80307; 81003; 85025; 96372; 97150; 97165; 99285; J1631

== ENCOUNTER 2024-01-25 10:05 | Emergency (ER) | payer MEDICAID, SELFPAY ==
[2021-09-25 16:09] VITALS: BMI 39.9
[2024-01-25 10:05] VITALS: BP 134/77; PULSE 81; RESP 18; TEMP 36.4; O2SAT 99
--- NOTE | 2024-01-25 10:08 | ED.C_ITS ---
Documented by User: DEE DEE Caba 01/25/24 14:40 HPI - Psych 2 General: Chief Complaint: Psychiatric Symptoms Stated Complaint: SI Time Seen by Provider: 01/25/24 10:07 Source: patient Mode of arrival: EMS Limitations: no limitations History of Present Illness: Patient is a 28-year-old male who presents to ED today from [facility] via EMS for evaluation of suicidal ideations. Patient was just recently released from [facility] approximately 3 days ago. During his stay assessment diagnoses were as follows: (1) Schizophrenia: Qualifiers: Schizophrenia type: disorganized schizophrenia Qualified Code(s): F20.1 - Disorganized schizophrenia (2) Acute psychosis: (3) Suicidal ideation: (4) Major depressive disorder, recurrent , severe with psychotic symptoms: (5) Cannabis use disorder, moderate, in early remission, dependence: (6) Nicotine dependence, unspecified, un complicated: (7) Cluster A personality disorder in ad ult: (8) Generalized anxiety disorder: (9) Inhalant use disorder, severe, in ea rly remission, dependence: (10) Alcohol use disorder: (11) Cannabis use disorder: (12) Suicidal ideation: Patient states he is currently residing in a homeless long term. He states he feels hopeless and feels like there is no reason to be alive. He states he is suicidal with multiple plans including slitting his wrists, hanging himself, and walking out in front of traffic. MD complaint: suicidal ideation and feels depressed Onset (ago): week(s) Duration: constant History of same: Yes Relieving factors: none Exacerbating factors: none Associated psychiatric symptoms: depression and suicidal ideation Associated symptoms: Reports depression and suicidal ideation Treatments prior to arrival: none If self harm: admits thoughts of self harm and has plan Review of Systems 2 Const: Denies: fever(s) or chills Card: Denies: chest pain, palpitations, lightheadedness or syncope Resp: Denies: dyspnea GI: Denies: abdominal pain, nausea, vomiting or diarrhea Skin/Breast: Denies: rash Neuro: Denies: headache(s) Psych: Reports: depression, hopelessness, loss of interest and suicidal ideation; Denies: paranoia PFSH ED 2 PFSH: Medical History Psychiatric care Major depressive disorder, recurrent severe without psychotic features Social History Smoking and tobacco/nicotine status: current every day tobacco/nicotine user e- cigarettes E-Cigarette Details: vaporizer device and with nicotine E-cig/vape details: 5 mg/Day Quit status (tobacco/nicotine): considering quitting Second hand smoke exposure: No Current gender identity: Male Physical Exam 2 Const: COMMON NORMALS: no acute distress, patient oriented x3, no limitations, alert and well nourished GENERAL APPEARANCE: cooperative Resp: COMMON NORMALS: normal respiratory effort and clear to auscultation bilaterally AUSCULTATION: clear to auscultation bilaterally Cardio: COMMON NORMALS: regular rate and regular rhythm RATE: regular rate RHYTHM: regular rhythm Neuro: COMMON NORMALS: patient oriented x3 SENSORIUM/ORIENTATION: Yes alert Psych: COMMON NORMALS: mental status grossly normal, Normal thought process present, cooperative, speech normal, activity/motor behavior normal and denies homicidal ideation APPEARANCE: Yes grossly normal ATTITUDE: Yes calm A CTIVITY/MOTOR BEHAVIOR: No psychomotor agitation and Yes Avoids eye contact (attititude/behavior) SPEECH: Yes normal speech MOOD & AFFECT: Yes Flat affect present THOUGHT PROCESS: Normal thought process present THOUGHT CONTENT: Yes Suicidality present ATTENTION/CONCENTRATION: Yes attention grossly intact and Yes concentration grossly intact MEMORY/COGNITION: Yes memory grossly intact and Yes cognition grossly intact INSIGHT: Good insight present (Psych) JUDGEMENT: Fair judgement present (Psych) Course 2 Consultations: Consultation #1: Dr. Huntley-will come assess patient in ED as he was just released from [facility] Vital Signs: Vital signs: Vital Signs Temperature 97.5 F L 01/25/24 14:29 Pulse Rate 81 01/25/24 14:29 Respiratory Rate 18 01/25/24 14:29 Blood Pressure 134/77 01/25/24 14:29 Pulse Oximetry 97 01/25/24 14:29 Oxygen Delivery Me thod Room Air 01/25/24 10:43 MDM - Psych Medical Decision Making Patient is a 28-year-old male here for complaints of depression and suicidal ideations. He is homeless. He was recently just released from [facility] after an extended stay lasting from 12/30 to 01/21. I spoke to Dr. Huntley who was able to contact [facility] and come up with a plan for patient for outpatient therapy and services. He essentially will have a case management team through [facility] who will see patient daily and he will be instructed to go to the Crisis Center if he needs additional therapy/rest/counseling. Dr. Huntley came to the emergency department and assessed patient. Please see his note for full psychiatric assessment and plan. Lab Data 01/25/24 10:26 01/25/24 10:26 Laboratory Results WBC 8.00 10^3/uL (3.29-11.43) 01/25/24 10: RBC 5.08 10^6/uL (3.85-5.65) 01/25/24 10:26 Hgb 14.30 g/dL (11.27-16.99) 01/25/24 10:26 Hct 42.9 % (37-53) 01/25/24 10: MCV 84.4 fl (82-101) 01/25/24 10:26 MCH 28.1 pg (27-33) 01/25/24 10: MCHC 33.3 g/dL (30-55) 01/25/24 10: RDW 12.5 % (12.1-15.1) 01/25/24 10:26 Plt Count 197 10^3/cmm (157-399) 01/25/24 10: MPV 10.8 fL (7.4-10.4) H 01/25/24 10:26 Neut % (Auto) 62.9 % 01/25/24 10:26 Lymph % (Auto) 24.8 % 01/25/24 10:26 Craven % (Auto) 9.0 % 01/25/24 10:26 Eos % (Auto) 2.5 % 01/25/24 10:26 Baso % (Auto) 0.4 % 01/25/24 10:26 Neut # (Auto) 5.04 10^3/uL (1.8-7.7) 01/25/24 10: Lymph # (Auto) 2.0 10^3/uL (0.8-4.8) 01/25/24 10:26 Craven # (Auto) 0.7 10^3/uL (0.2-0.9) 01/25/24 10:26 Eos # (Auto) 0.2 10^3/uL (0.0-0.8) 01/25/24 10:26 Baso # (Auto) 0.0 10^3/uL (0.0-0.1) 01/25/24 10:26 Nucleated RBC % (auto) 0 % 01/25/24 10:26 Nucleated RBCs # 0.0 /100WBC 01/25/24 10:26 Sodium 138 mmol/L (136-145) 01/25/24 10:26 Potassium 4.0 mmol/L (3.5-5.1) 01/25/24 10:26 Chloride 104 mmol/L (98-107) 01/25/24 10:26 Carbon Dioxide 24 mmol/L (22-29) 01/25/24 10:26 Anion Gap 14.0 (5-19) 01/25/24 10:26 BUN 11 mg/dL (6-20) 01/25/24 10:26 Creatinine 0.8 mg/dL (0.7-1.2) 01/25/24 10:26 GFR Calculation 116.9 mL/min (90-130) 01/25/24 10:26 Glucose 91 mg/dL (65-115) 01/25/24 10:26 Calculated Osmolality 285 mOsm/kg (285-295) 01/25/24 10:26 Calcium 9.5 mg/dL (8.5-10.5) 01/25/24 10:26 Total Bilirubin 0.3 mg/dL (0.15-1.2) 01/25/24 10:26 AST 22 U/L (0-40) 01/25/24 10:26 ALT 38 U/L (0-41) 01/25/24 10:26 Alkaline Phosphatase 91 U/L (40-130) 01/25/24 10:26 Total Protein 7.6 g/dL (6.6-8.7) 01/25/24 10:26 Albumin 4.1 g/dL (3.5-5.2) 01/25/24 10:26 Globulin 3.5 g/dL (1.3-4.6) 01/25/24 10:26 Salicylates < 0.3 mg/dL (3-10) L 01/25/24 10:26 Urine Opiates Screen Negative ng/mL (Negative) 01/25/24 10:20 Acetaminophen < 5.0 ug/mL (10-30) L 01/25/24 10:26 Ur Barbiturates Screen Negative ng/mL (Negative) 01/25/24 10:20 Ur Phencyclidine Scrn Negative ng/mL (Negative) 01/25/24 10:20 Ur Amphetamines Screen Negative ng/mL (Negative) 01/25/24 10:20 U Benzodiazepines Scrn Positive ng/mL (Negative) H 01/25/24 10:20 Urine Cocaine Screen Negative ng/mL (Negative) 01/25/24 10:20 U Marijuana (THC) Screen Positive ng/mL (Negative) H 01/25/24 10:20 Ethyl Alcohol < 10 mg/dL (0-10) 01/25/24 10:26 No radiology studies performed this visit Discharge Plan Discharge Patient Disposition: Home Clinical Impression: Suicidal ideation Depression Qualifiers: Depression Type: unspecified Qualified Code(s): F32.A - Depression, unspecified Condition: Stable Prescriptions: No Action benztropine 1 mg tablet 1 mg PO BID Qty: 60 1RF quetiapine 400 mg tablet 400 mg PO BEDTIME 30 Days Qty: 30 1RF fluoxetine 20 mg capsule 20 mg PO TID Discharge Orders: Discharge ED (Routine); Ordered 01/25/24 Ordered By: Alma Delia Paul Activity Restrictions/Additional Instructions: You have spoken to Dr. Huntley/psychiatrist here in the Emergency Department. They have came up with an outpatient care plan for you involving your team through [facility] and Crisis Center. Coding Level of Care Code ED Senior Water Resources Engineer for Chg Fwd Documented by User: Jaya Boateng DO 01/25/24 14:43 HPI - Psych 2 General: Chief Complaint: Psychiatric Symptoms Stated Complaint: SI Time Seen by Provider: 01/25/24 10:07 [facility] ED 2 PFSH: Medical History Psychiatric care Major depressive disorder, recurrent severe without psychotic features Social History (Reviewed 01/25/24 @ 10:15 by GAEL Caba Smoking and tobacco/nicotine status: current every day tobacco/nicotine user e- cigarettes E-Cigarette Details: vaporizer device and with nicotine E-cig/vape details: 5 mg/Day Quit status (tobacco/nicotine): considering quitting Second hand smoke exposure: No Current gender identity: Male Course 2 Vital Signs: Vital signs: Vital Signs Temperature 97.5 F L 01/25/24 14:29 Pulse Rate 81 01/25/24 14:29 Respiratory Rate 18 01/25/24 14:29 Blood Pressure 134/77 01/25/24 14:29 Pulse Oximetry 97 01/25/24 14:29 Oxygen Delivery Me thod Room Air 01/25/24 10:43 MDM - Psych Medical Decision Making Patient is a 28-year-old male here for complaints of depression and suicidal ideations. He is homeless. He was recently just released from [facility] after an extended stay lasting from 12/30 to 01/21. I spoke to Dr. Huntley who was able to contact [facility] and come up with a plan for patient for outpatient therapy and services. He essentially will have a case management team through [facility] who will see patient daily and he will be instructed to go to the Crisis Center if he needs additional therapy/rest/counseling. Dr. Huntley came to the emergency department and assessed patient. Please see his note for full psychiatric assessment and plan. Chart reviewed and patient discussed with midlevel. Agree with assessment and plan. Lab Data 01/25/24 10:26 01/25/24 10:26 Laboratory Results WBC 8.00 10^3/uL (3.29-11.43) 01/25/24 10:26 RBC 5.08 10^6/uL (3.85-5.65) 01/25/24 10:26 Hgb 14.30 g/dL (11.27-16.99) 01/25/24 10:26 Hct 42.9 % (37-53) 01/25/24 10:26 MCV 84.4 fl (82-101) 01/25/24 10:26 MCH 28.1 pg (27-33) 01/25/24 10:26 MCHC 33.3 g/dL (30-55) 01/25/24 10:26 RDW 12.5 % (12.1-15.1) 01/25/24 10:26 Plt Count 197 10^3/cmm (157-399) 01/25/24 10: MPV 10.8 fL (7.4-10.4) H 01/25/24 10: Neut % (Auto) 62.9 % 01/25/24 10: Lymph % (Auto) 24.8 % 01/25/24 10: Craven % (Auto) 9.0 % 01/25/24 10: Eos % (Auto) 2.5 % 01/25/24 10:26 Baso % (Auto) 0.4 % 01/25/24 10: Neut # (Auto) 5.04 10^3/uL (1.8-7.7) 01/25/24 10: Lymph # (Auto) 2.0 10^3/uL (0.8-4.8) 01/25/24 10: Craven # (Auto) 0.7 10^3/uL (0.2-0.9) 01/25/24 10: Eos # (Auto) 0.2 10^3/uL (0.0-0.8) 01/25/24 10: Baso # (Auto) 0.0 10^3/uL (0.0-0.1) 01/25/24 10: Nucleated RBC % (auto) 0 % 01/25/24 10: Nucleated RBCs # 0.0 /100WBC 01/25/24 10: Sodium 138 mmol/L (136-145) 01/25/24 10: Potassium 4.0 mmol/L (3.5-5.1) 01/25/24 10: Chloride 104 mmol/L (98-107) 01/25/24 10: Carbon Dioxide 24 mmol/L (22-29) 01/25/24 10: Anion Gap 14.0 (5-19) 01/25/24 10: BUN 11 mg/dL (6-20) 01/25/24 10: Creatinine 0.8 mg/dL (0.7-1.2) 01/25/24 10:26 GFR Calculation 116.9 mL/min (90-130) 01/25/24 10: Glucose 91 mg/dL (65-115) 01/25/24 10:26 Calculated Osmolality 285 mOsm/kg (285-295) 01/25/24 10:26 Calcium 9.5 mg/dL (8.5-10.5) 01/25/24 10:26 Total Bilirubin 0.3 mg/dL (0.15-1.2) 01/25/24 10:26 AST 22 U/L (0-40) 01/25/24 10:26 ALT 38 U/L (0-41) 01/25/24 10:26 Alkaline Phosphatase 91 U/L (40-130) 01/25/24 10:26 Total Protein 7.6 g/dL (6.6-8.7) 01/25/24 10:26 Albumin 4.1 g/dL (3.5-5.2) 01/25/24 10:26 Globulin 3.5 g/dL (1.3-4.6) 01/25/24 10:26 Salicylates < 0.3 mg/dL (3-10) L 01/25/24 10:26 Urine Opiates Screen Negative ng/mL (Negative) 01/25/24 10:20 Acetaminophen < 5.0 ug/mL (10-30) L 01/25/24 10:26 Ur Barbiturates Screen Negative ng/mL (Negative) 01/25/24 10:20 Ur Phencyclidine Scrn Negative ng/mL (Negative) 01/25/24 10:20 Ur Amphetamines Screen Negative ng/mL (Negative) 01/25/24 10:20 U Benzodiazepines Scrn Positive ng/mL (Negative) H 01/25/24 10:20 Urine Cocaine Screen Negative ng/mL (Negative) 01/25/24 10:20 U Marijuana (THC) Screen Positive ng/mL (Negative) H 01/25/24 10:20 Ethyl Alcohol < 10 mg/dL (0-10) 01/25/24 10:26 Discharge Plan Discharge Patient Disposition: Home Clinical Impression: Suicidal ideation Depression Qualifiers: Depression Type: unspecified Qualified Code(s): F32.A - Depression, unspecified Condition: Stable Prescriptions: No Action benztropine 1 mg tablet 1 mg PO BID Qty: 60 1RF quetiapine 400 mg tablet 400 mg PO BEDTIME 30 Days Qty: 30 1RF fluoxetine 20 mg capsule 20 mg PO TID Discharge Orders: Discharge ED (Routine); Ordered 01/25/24 Ordered By: Amla Delia Paul Activity Restrictions/Additional Instructions: You have spoken to Dr. Huntley/psychiatrist here in the Emergency Department. They have came up with an outpatient care plan for you involving your team through [facility] and Crisis Center. Coding Level of Care Code ED Senior Water Resources Engineer for Eric Glover
[2024-01-25 10:35] LABS: Basophils % 0.4 %; Eosinophils # 0.2 10^3/uL (0.0-0.8); Eosinophils % 2.5 %; Hematocrit 42.9 % (37-53); Lymphocytes % 24.8 %; Mean Corpuscular HGB Conc 33.3 g/dL (30-55); Mean Corpuscular Hemoglobin 28.1 pg (27-33); Mean Corpuscular Volume 84.4 fl (82-101); Mean Platelet Volume 10.8 fL (7.4-10.4); Monocytes # 0.7 10^3/uL (0.2-0.9); Neutrophils # 5.04 10^3/uL (1.8-7.7); Neutrophils % 62.9 %; Nucleated Red Blood Cells % 0 %; Platelet Count 197 10^3/cmm (157-399); Red Blood Count 5.08 10^6/uL (3.85-5.65); Red Cell Distribution Width 12.5 % (12.1-15.1)
[2024-01-25 10:43] VITALS: BP 134/77; PULSE 81; O2SAT 97
[2024-01-25 10:45] LABS: Amphetamines Screen Urine Negative (Negative); Barbiturates Screen Urine Negative (Negative); Benzodiazepines Screen Urine Positive (Negative); Cocaine Screen Urine Negative (Negative); Opiate Screen Urine Negative (Negative); PCP Screen Urine Negative (Negative); THC Screen Urine Positive (Negative)
[2024-01-25 10:55] LABS: Acetaminophen < 5.0 ug/mL (10-30); Alanine Aminotransferase 38 U/L (0-41); Albumin Level 4.1 g/dL (3.5-5.2); Alcohol Level < 10 mg/dL (0-10); Alkaline Phosphatase 91 U/L (40-130); Aspartate Amino Transferase 22 U/L (0-40); Blood Urea Nitrogen 11 mg/dL (6-20); Calcium 9.5 mg/dL (8.5-10.5); Carbon Dioxide 24 mmol/L (22-29); Chloride 104 mmol/L (98-107); Globulin 3.5 g/dL (1.3-4.6); Glomerular Filtration Rate 116.9 mL/min (90-130); Glucose 91 mg/dL (65-115); Osmolality Calculated 285 mOsm/kg (285-295); Salicylate < 0.3 mg/dL (3-10); Sodium 138 mmol/L (136-145); Total Bilirubin 0.3 mg/dL (0.15-1.2); Total Protein 7.6 g/dL (6.6-8.7)
--- NOTE | 2024-01-25 11:18 | PC.PHAR ---
pt states he takes care of his own medications-pt states he no longer takes haloperidol 5mg bid filled 12/22/23 30d/s or invega sustenna 234mg/1.5ml q30d filled on 09/14/23 30d/s-pt states he takes prozac 20mg tid rx filled for 60mg once a day 01/21/24 30d/s-
--- NOTE | 2024-01-25 12:55 | PC.NURSE ---
WAITING ON DR HERRING TO ASSESS PATIENT BEFORE DC PER VERBAL ORDERS MARK FUNEZ
--- NOTE | 2024-01-25 13:40 | P.NPUHP_ITS ---
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 was cooperative with exam in no acute distress. Speech was slightly decreased rate and volume. Mood described as okay His affect was restricted. Thought process was linear and organized. Thought content: Patient denied current suicidal or homicidal ideation, there were no delusions reported or noted, he denied any visual hallucinations and reported infrequent auditory hallucinations. He did not appear to be responding to internal stimuli. Attention and concentration were intact and memory appeared mostly reliable but were not formally tested. He is alert and oriented x3. Insight was limited. Judgment remained poor and impulse control is limited. Vitals/I&O/Wt Last Vital Signs Temp 97.5 F L 01/25/24 10:05 Pulse 81 01/25/24 10:43 Resp 18 01/25/24 10:05 BP 134/77 01/25/24 10:43 Pulse Ox 97 01/25/24 10:43 O2 Del Method Room Air 01/25/24 10:43 Data NPU 01/25/24 10:26 01/25/24 10:26 A&P Assessment and plan (1) Acute psychosis: (2) Suicidal ideation: (3) Major depressive disorder, recurrent, severe with psychotic symptoms: (4) Cannabis use disorder, moderate, in early remission, dependence: (5) Nicotine dependence, unspecified, uncomplicated: (6) Cluster A personality disorder in adult: (7) Generalized anxiety disorder: (8) Inhalant use disorder, severe, in early remission, dependence: (9) Alcohol use disorder: (10) Cannabis use disorder: (11) Suicidal ideation: (12) Schizophrenia: Qualifiers: Schizophrenia type: disorganized schizophrenia Qualified Code(s): F20.1 - Disorganized schizophrenia Plan This is a 28-year-old white male well known to the neuropsychiatric unit with known history of depression, psychosis, addiction and residential instability who presents days after discharge his last hospitalization here reportedly feeling overwhelmed with suicidal ideation. 1.? Continue current medications. 2. Given continued/chronic suicidal ideation continued hospitalization for every time he is experiencing the symptoms does not possible. Talked with his outpatient team about the possibility of a residential program in [place] that does intense DBT and CBT treatment as a goal moving forward. Otherwise we will introduce him to the crisis stabilization center and attempt to use it as a diversion in place for him to go outside [place] [facility] [place]. Additionally spoke with team about providing rides likely to and from the crisis stabilization center as well as having his peer lead case manager meet with him daily during the week while his standard lead case manager meets with him weekly still. 3. Recommend more intense outpatient connection instead of inpatient admission given limited impact and instead more frequent visits. Involuntary Hold Information 2 96 Hour Hold: 96 Hour Involuntary Admission: No 96 Hour Hold Ending Date: 0 06/05/23 96 Hour Hold Ending Time: 20:37 Attestations NPU 2 Medical Necessity Statement*: N/A. Please see primary team note for medical necessity, but agree with discharge to outpatient services. Coding Level of Care Code Acute Code for [facility] Fwd Diagnoses Acute psychosis F23 Suicidal ideation R45.851 Major depressive disorder, recurrent, severe with psychotic symptoms F33.3 Cannabis use disorder, moderate, in early remission, dependence F12.21 Nicotine dependence, unspecified, uncomplicated F17.200 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 Inhalant use disorder, severe, in early remission, dependence F18.21 Alcohol use disorder F10.90 Cannabis use disorder F12.90 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
[2024-01-25 14:29] VITALS: BP 134/77; PULSE 81; RESP 18; TEMP 36.4; O2SAT 97
== END 2024-01-25 14:31 | disposition home or self-care (01) ==
PROVIDERS: Emergency Provider Physician Assistant
DX: R45.851 Suicidal ideations (principal); F32.A Depression, unspecified; F17.290 Nicotine dependence, other tobacco product, uncomplicated
CPT/HCPCS: 36415; 80053; 80306; 80307; 85025; 99283

== ENCOUNTER 2024-02-22 21:34 | Inpatient (IN) | payer MEDICAID, SELFPAY ==
[2024-02-19 13:09] VITALS: BP 116/74; BMI 35.3
[2024-02-22 21:36] VITALS: BP 93/61; PULSE 74; RESP 16; TEMP 36.7; O2SAT 95; BMI 35.5
--- NOTE | 2024-02-22 21:41 | ECG_ITS ---
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 Measurements Intervals [place] Rate: 44 P: -9 NC: 172 QRS: 134 QRSD: 109 T: 128 QT: 477 QTc: 409 Interpretive Statements SINUS BRADYCARDIA LEFT POSTERIOR FASCICULAR BLOCK [QRS AXIS > 109, INFERIOR Q] MINIMAL ST DEPRESSION [0.025+ mV ST DEPRESSION] Compared to ECG 11/06/2023 05:24:51 Left posterior fascicular block now present Sinus rhythm no longer present Early repolarization no longer present ST (T wave) deviation still present Electronically Signed On 02-24-2024 0:20:02 CDT by Marsha Deutsch M.D. [id number]
--- NOTE | 2024-02-22 21:42 | ED.C_ITS ---
Documented by User: Yeny Lo MD 02/23/24 16:49 HPI - Psych 2 General: Chief Complaint: Psychiatric Symptoms Stated Complaint: SI Time Seen by Provider: 02/22/24 21:38 History of Present Illness: 29-year-old [facility] with schizophrenia and depression and suicidal thoughts who presents the emergency room tonight with suicidal thoughts. He says the last time he left he felt like he went too fast and now he feels suicidal. He says he is going to try to drink himself to by drinking caffeine and giving himself a heart attack. Review of Systems 2 Narrative: Constitutional symptoms: Negative except as documented in HPI. Skin symptoms: Negative except as documented in HPI. Eye symptoms: Negative except as documented in HPI. ENMT symptoms: Negative except as documented in HPI. Respiratory symptoms: Negative except as documented in HPI. Cardiovascular symptoms: Negative except as documented in HPI. Gastrointestinal symptoms: Negative except as documented in HPI. Genitourinary symptoms: Negative except as documented in HPI. Musculoskeletal symptoms: Negative except as documented in HPI. Neurologic symptoms: Negative except as documented in HPI. Psychiatric symptoms: Negative except as documented in HPI. Endocrine symptoms: Negative except as documented in HPI. PFSH ED 2 PFSH: Medical History (Updated 02/23/24 @ 16:48 by Yeny Lo MD) Major depressive disorder, recurrent severe without psychotic features Psychiatric care Social History Smoking and tobacco/nicotine status: current every day tobacco/nicotine user e- cigarettes E-Cigarette Details: vaporizer device and with nicotine E-cig/vape details: 5 mg/Day Quit status (tobacco/nicotine): considering quitting Second hand smoke exposure: No Current gender identity: Male Physical Exam 2 Narrative: EXAM NARRATIVE: General: Alert, no acute distress. Skin: Warm, dry. Head: Normocephalic, atraumatic. Neck: Supple, trachea midline. Eye: Extraocular movements are intact. Ears, nose, mouth and throat: mucosa moist. Cardiovascular: Regular, Normal peripheral perfusion. Respiratory: Lungs are clear to auscultation, respirations are non-labored, breath sounds are equal, Symmetrical chest wall expansion. Gastrointestinal: Soft, Nontender, Non distended, Normal bowel sounds. Musculoskeletal: Normal ROM, no deformity. Neurological: Alert and oriented, No focal neurological deficit observed. Psychiatric: Cooperative, patient states he wants to drink caffeine until he gives himself a heart attack. Course 2 Vital Signs: Vital signs: Vital Signs Temperature 97.6 F 02/23/24 07:38 Pulse Rate 54 L 02/23/24 07:38 Respiratory Rate 17 02/23/24 07:38 Blood Pressure 104/66 02/23/24 07:38 Pulse Oximetry 94 02/23/24 07:38 Oxygen Delivery Me thod Room Air 02/23/24 07:38 MDM - Psych Medical Decision Making Differential diagnosis: Patient with reported depression and suicidal ideation. concerns for infection, alcohol intoxication, cardiac issues or other medical problems prior to psychiatric admission. - Workup: labwork, ekg ordered to evaluate the pathologies and to clear the patient medically prior to psychiatric admission Consultation: I spoke with Dr. Huntley. He feels that this patient is here at least 2 times a month and they had come up with a plan for him to utilize outside resources rather than coming into the hospital every time he had a crisis. He wants to check if he has been utilizing this and reevaluate him in the morning. He request that we keep him in the emergency room overnight. Patient care transition to overnight doc. Dr. Barboza. Patient care transition back to me this morning when I got to work at 11 AM. Reevaluation today at around noon. Patient remained stable he has been sleeping in bed most of the time. Consultation: I spoke again with Dr. Huntley his outpatient team is going to see the patient and they did and have decided to admit him overnight mildly implement further plans. Lab review: - Medically cleared. - EKG shows no ischemic changes. - Blood alcohol level is negative, as well as salicylate and Tylenol. - Drug screen is negative - No signs of infection, urinalysis clear and white count is not elevated - No anemia. - BUN and creatinine are within normal limits. Prolonged stay: Secondary to attempting to find a plan with his outpatient psychiatric team. I put in orders as soon as I was informed he was cleared for admission. Assessment and plan: Suicidal ideation -Admission to neuropsychiatric unit for continued evaluation and treatment. - All lab work was reviewed and interpreted personally by myself, the ER physician - Evaluation and treatment of this problem were appropriate in the emergency setting Lab Data 02/22/24 21:50 02/22/24 21:50 Laboratory Results WBC 9.17 10^3/uL (3.29-11.43) 02/22/24 21:50 RBC 4.84 10^6/uL (3.85-5.65) 02/22/24 21:50 Hgb 13.80 g/dL (11.27-16.99) 02/22/24 21:50 Hct 42.1 % (37-53) 02/22/24 21:50 MCV 87.0 fl (82-101) 02/22/24 21:50 MCH 28.5 pg (27-33) 02/22/24 21:50 MCHC 32.8 g/dL (30-55) 02/22/24 21:50 RDW 12.9 % (12.1-15.1) 02/22/24 21:50 Plt Count 203 10^3/cmm (157-399) 02/22/24 21:50 MPV 10.5 fL (7.4-10.4) H 02/22/24 21:50 Neut % (Auto) 77.2 % 02/22/24 21:50 Lymph % (Auto) 16.8 % 02/22/24 21:50 Russell % (Auto) 4.9 % 02/22/24 21:50 Eos % (Auto) 0.4 % 02/22/24 21:50 Baso % (Auto) 0.4 % 02/22/24 21:50 Neut # (Auto) 7.07 10^3/uL (1.8-7.7) 02/22/24 21:50 Lymph # (Auto) 1.5 10^3/uL (0.8-4.8) 02/22/24 21:50 Russell # (Auto) 0.5 10^3/uL (0.2-0.9) 02/22/24 21:50 Eos # (Auto) 0.0 10^3/uL (0.0-0.8) 02/22/24 21:50 Baso # (Auto) 0.0 10^3/uL (0.0-0.1) 02/22/24 21:50 Nucleated RBC % (auto) 0 % 02/22/24 21:50 Nucleated RBCs # 0.0 /100WBC 02/22/24 21:50 Sodium 137 mmol/L (136-145) 02/22/24 21:50 Potassium 4.3 mmol/L (3.5-5.1) 02/22/24 21:50 Chloride 101 mmol/L (98-107) 02/22/24 21:50 Carbon Dioxide 23 mmol/L (22-29) 02/22/24 21:50 Anion Gap 17.3 (5-19) 02/22/24 21:50 BUN 13 mg/dL (6-20) 02/22/24 21:50 Creatinine 0.9 mg/dL (0.7-1.2) 02/22/24 21:50 GFR Calculation 101.2 mL/min (90-130) 02/22/24 21:50 Glucose 87 mg/dL (65-115) 02/22/24 21:50 Calculated Osmolality 283 mOsm/kg (285-295) L 02/22/24 21:50 Calcium 9.6 mg/dL (8.5-10.5) 02/22/24 21:50 Total Bilirubin 0.2 mg/dL (0.15-1.2) 02/22/24 21:50 AST 19 U/L (0-40) 02/22/24 21:50 ALT 37 U/L (0-41) 02/22/24 21:50 Alkaline Phosphatase 93 U/L (40-130) 02/22/24 21:50 Total Protein 7.5 g/dL (6.6-8.7) 02/22/24 21:50 Albumin 4.3 g/dL (3.5-5.2) 02/22/24 21:50 Globulin 3.2 g/dL (1.3-4.6) 02/22/24 21:50 TSH 1.25 uIU/mL (0.27-4.20) 02/22/24 21:50 Urine Color Yellow (Yellow) 02/22/24 21:48 Urine Appearance Cloudy (CLEAR) A 02/22/24 21:48 Urine pH 6.5 (5-7) 02/22/24 21:48 Ur Specific Joice 1.020 (1.005-1.030) 02/22/24 21:48 Urine Protein Neg (Negative) 02/22/24 21:48 Urine Glucose (UA) Norm (Normal) 02/22/24 21:48 Urine Ketones Negative (Negative) 02/22/24 21:48 Urine Blood Neg (Negative) 02/22/24 21:48 Urine Nitrate Negative (Negative) 02/22/24 21:48 Urine Bilirubin Neg (Negative) 02/22/24 21:48 Urine Urobilinogen Neg mg/dL (Negative) 02/22/24 21:48 Ur Leukocyte Esterase Negative (Negative) 02/22/24 21:48 Urine RBC None /hpf (0-2) 02/22/24 21:48 Urine WBC None /hpf (0-5) 02/22/24 21:48 Ur Squamous Epith Cells 0-4 /hpf (0-5) H 02/22/24 21:48 Amorphous Sediment 4+ /hpf 02/22/24 21:48 Urine Bacteria Trace /hpf (NONE) 02/22/24 21:48 Salicylates < 0.3 mg/dL (3-10) L 02/22/24 21:50 Urine Opiates Screen Negative ng/mL (Negative) 02/22/24 21:48 Acetaminophen < 5.0 ug/mL (10-30) L 02/22/24 21:50 Ur Barbiturates Screen Negative ng/mL (Negative) 02/22/24 21:48 Ur Phencyclidine Scrn Negative ng/mL (Negative) 02/22/24 21:48 Ur Amphetamines Screen Negative ng/mL (Negative) 02/22/24 21:48 U Benzodiazepines Scrn Negative ng/mL (Negative) 02/22/24 21:48 Urine Cocaine Screen Negative ng/mL (Negative) 02/22/24 21:48 U Marijuana (THC) Screen Positive ng/mL (Negative) H 02/22/24 21:48 Ethyl Alcohol < 10 mg/dL (0-10) 02/22/24 21:50 Discharge Plan Discharge Patient Disposition: Admitted As Inpatient Clinical Impression: Suicidal ideation, Chronic schizophrenia Condition: Stable Coding Level of Care Code ED Bus System Operator for Eric Glover Documented by User: Jin Day DO 02/23/24 12:55 HPI - Psych 2 General: Chief Complaint: Psychiatric Symptoms Stated Complaint: SI Time Seen by Provider: 02/22/24 21:38 [facility] ED 2 [facility]: Medical History (Updated 02/23/24 @ 16:48 by Yeny Lo MD) Major depressive disorder, recurrent severe without psychotic features Psychiatric care Social History Smoking and tobacco/nicotine status: current every day tobacco/nicotine user e- cigarettes E-Cigarette Details: vaporizer device and with nicotine E-cig/vape details: 5 mg/Day Quit status (tobacco/nicotine): considering quitting Second hand smoke exposure: No Current gender identity: Male Course 2 Reevaluation(s): Reevaluation #1: This patient presented to the emergency department yesterday and was seen by Dr. Cortez then transition to Dr. Barboza and now I am the morning physician on duty. Patient has a longstanding history of recurrent suicidal ideations when in crisis. Dr. Huntley was consulted on his presentation and requested an overnight ED stay and he will evaluate him this morning. The patient's been stable and cooperative pending that evaluation. Time: 06:59 Vital Signs: Vital signs: Vital Signs Temperature 97.6 F 02/23/24 07:38 Pulse Rate 54 L 02/23/24 07:38 Respiratory Rate 17 02/23/24 07:38 Blood Pressure 104/66 02/23/24 07:38 Pulse Oximetry 94 02/23/24 07:38 Oxygen Delivery Me thod Room Air 02/23/24 07:38 MDM - Psych Lab Data 02/22/24 21:50 02/22/24 21:50 Laboratory Results WBC 9.17 10^3/uL (3.29-11.43) 02/22/24 21:50 RBC 4.84 10^6/uL (3.85-5.65) 02/22/24 21:50 Hgb 13.80 g/dL (11.27-16.99) 02/22/24 21:50 Hct 42.1 % (37-53) 02/22/24 21:50 MCV 87.0 fl (82-101) 02/22/24 21:50 MCH 28.5 pg (27-33) 02/22/24 21:50 MCHC 32.8 g/dL (30-55) 02/22/24 21:50 RDW 12.9 % (12.1-15.1) 02/22/24 21:50 Plt Count 203 10^3/cmm (157-399) 02/22/24 21:50 MPV 10.5 fL (7.4-10.4) H 02/22/24 21:50 Neut % (Auto) 77.2 % 02/22/24 21:50 Lymph % (Auto) 16.8 % 02/22/24 21:50 Russell % (Auto) 4.9 % 02/22/24 21:50 Eos % (Auto) 0.4 % 02/22/24 21:50 Baso % (Auto) 0.4 % 02/22/24 21:50 Neut # (Auto) 7.07 10^3/uL (1.8-7.7) 02/22/24 21:50 Lymph # (Auto) 1.5 10^3/uL (0.8-4.8) 02/22/24 21:50 Russell # (Auto) 0.5 10^3/uL (0.2-0.9) 02/22/24 21:50 Eos # (Auto) 0.0 10^3/uL (0.0-0.8) 02/22/24 21:50 Baso # (Auto) 0.0 10^3/uL (0.0-0.1) 02/22/24 21:50 Nucleated RBC % (auto) 0 % 02/22/24 21:50 Nucleated RBCs # 0.0 /100WBC 02/22/24 21:50 Sodium 137 mmol/L (136-145) 02/22/24 21:50 Potassium 4.3 mmol/L (3.5-5.1) 02/22/24 21:50 Chloride 101 mmol/L (98-107) 02/22/24 21:50 Carbon Dioxide 23 mmol/L (22-29) 02/22/24 21:50 Anion Gap 17.3 (5-19) 02/22/24 21:50 BUN 13 mg/dL (6-20) 02/22/24 21:50 Creatinine 0.9 mg/dL (0.7-1.2) 02/22/24 21:50 GFR Calculation 101.2 mL/min (90-130) 02/22/24 21:50 Glucose 87 mg/dL (65-115) 02/22/24 21:50 Calculated Osmolality 283 mOsm/kg (285-295) L 02/22/24 21:50 Calcium 9.6 mg/dL (8.5-10.5) 02/22/24 21:50 Total Bilirubin 0.2 mg/dL (0.15-1.2) 02/22/24 21:50 AST 19 U/L (0-40) 02/22/24 21:50 ALT 37 U/L (0-41) 02/22/24 21:50 Alkaline Phosphatase 93 U/L (40-130) 02/22/24 21:50 Total Protein 7.5 g/dL (6.6-8.7) 02/22/24 21:50 Albumin 4.3 g/dL (3.5-5.2) 02/22/24 21:50 Globulin 3.2 g/dL (1.3-4.6) 02/22/24 21:50 TSH 1.25 uIU/mL (0.27-4.20) 02/22/24 21:50 Urine Color Yellow (Yellow) 02/22/24 21:48 Urine Appearance Cloudy (CLEAR) A 02/22/24 21:48 Urine pH 6.5 (5-7) 02/22/24 21:48 Ur Specific Joice 1.020 (1.005-1.030) 02/22/24 21:48 Urine Protein Neg (Negative) 02/22/24 21:48 Urine Glucose (UA) Norm (Normal) 02/22/24 21:48 Urine Ketones Negative (Negative) 02/22/24 21:48 Urine Blood Neg (Negative) 02/22/24 21:48 Urine Nitrate Negative (Negative) 02/22/24 21:48 Urine Bilirubin Neg (Negative) 02/22/24 21:48 Urine Urobilinogen Neg mg/dL (Negative) 02/22/24 21:48 Ur Leukocyte Esterase Negative (Negative) 02/22/24 21:48 Urine RBC None /hpf (0-2) 02/22/24 21:48 Urine WBC None /hpf (0-5) 02/22/24 21:48 Ur Squamous Epith Cells 0-4 /hpf (0-5) H 02/22/24 21:48 Amorphous Sediment 4+ /hpf 02/22/24 21:48 Urine Bacteria Trace /hpf (NONE) 02/22/24 21:48 Salicylates < 0.3 mg/dL (3-10) L 02/22/24 21:50 Urine Opiates Screen Negative ng/mL (Negative) 02/22/24 21:48 Acetaminophen < 5.0 ug/mL (10-30) L 02/22/24 21:50 Ur Barbiturates Screen Negative ng/mL (Negative) 02/22/24 21:48 Ur Phencyclidine Scrn Negative ng/mL (Negative) 02/22/24 21:48 Ur Amphetamines Screen Negative ng/mL (Negative) 02/22/24 21:48 U Benzodiazepines Scrn Negative ng/mL (Negative) 02/22/24 21:48 Urine Cocaine Screen Negative ng/mL (Negative) 02/22/24 21:48 U Marijuana (THC) Screen Positive ng/mL (Negative) H 02/22/24 21:48 Ethyl Alcohol < 10 mg/dL (0-10) 02/22/24 21:50 No radiology studies performed this visit Discharge Plan Discharge Patient Disposition: Admitted As Inpatient Clinical Impression: Suicidal ideation, Chronic schizophrenia Condition: Stable Coding Level of Care Code ED Bus System Operator for Eric Glover
[2024-02-22 21:57] LABS: Basophils % 0.4 %; Eosinophils % 0.4 %; Hematocrit 42.1 % (37-53); Lymphocytes # 1.5 10^3/uL (0.8-4.8); Lymphocytes % 16.8 %; Mean Corpuscular HGB Conc 32.8 g/dL (30-55); Mean Corpuscular Hemoglobin 28.5 pg (27-33); Mean Platelet Volume 10.5 fL (7.4-10.4); Monocytes # 0.5 10^3/uL (0.2-0.9); Monocytes % 4.9 %; Neutrophils # 7.07 10^3/uL (1.8-7.7); Neutrophils % 77.2 %; Nucleated Red Blood Cells % 0 %; Platelet Count 203 10^3/cmm (157-399); Red Blood Count 4.84 10^6/uL (3.85-5.65); Red Cell Distribution Width 12.9 % (12.1-15.1); White Blood Count 9.17 10^3/uL (3.29-11.43)
[2024-02-22 22:07] LABS: Amphetamines Screen Urine Negative (Negative); Barbiturates Screen Urine Negative (Negative); Benzodiazepines Screen Urine Negative (Negative); Cocaine Screen Urine Negative (Negative); Opiate Screen Urine Negative (Negative); PCP Screen Urine Negative (Negative); THC Screen Urine Positive (Negative)
[2024-02-22 22:09] LABS: Bilirubin Urine Neg (Negative); Blood Urine Neg (Negative); Glucose Urine UA Norm (Normal); Ketones Urine Negative (Negative); Leukocyte Esterase Urine Negative (Negative); Nitrate Urine Negative (Negative); Protein Urine Neg (Negative); Urine Appearance Cloudy (CLEAR); Urine Color Yellow (Yellow); Urobilinogen Urine Neg (Negative); pH Urine 6.5 (5-7)
[2024-02-22 22:10] LABS: Add Urine Culture? No; Amorphous Sediment Urine 4+ /hpf; Bacteria Urine TRACE /hpf; Squamous Epithelial Cell Urine 0-4 /hpf (0-5)
[2024-02-22 22:27] LABS: Alanine Aminotransferase 37 U/L (0-41); Albumin Level 4.3 g/dL (3.5-5.2); Anion Gap 17.3 (5-19); Aspartate Amino Transferase 19 U/L (0-40); Blood Urea Nitrogen 13 mg/dL (6-20); Calcium 9.6 mg/dL (8.5-10.5); Carbon Dioxide 23 mmol/L (22-29); Chloride 101 mmol/L (98-107); Creatinine Clr Calc Pharmacy 188.1436; Globulin 3.2 g/dL (1.3-4.6); Glomerular Filtration Rate 101.2 mL/min (90-130); Glucose 87 mg/dL (65-115); Osmolality Calculated 283 mOsm/kg (285-295); Potassium 4.3 mmol/L (3.5-5.1); Sodium 137 mmol/L (136-145); Thyroid Stimulating Hormone 1.25 uIU/mL (0.27-4.20); Total Bilirubin 0.2 mg/dL (0.15-1.2); Total Protein 7.5 g/dL (6.6-8.7)
[2024-02-22 22:28] LABS: Acetaminophen < 5.0 ug/mL (10-30); Alcohol Level < 10 mg/dL (0-10); Salicylate < 0.3 mg/dL (3-10)
[2024-02-22 22:38] LABS: Alkaline Phosphatase 93 U/L (40-130)
[2024-02-23 07:09] VITALS: BP 104/66; PULSE 54; RESP 17; TEMP 36.4; O2SAT 94
--- NOTE | 2024-02-23 07:09 | PC.NURSE ---
ASSUMED CARE OF PT AT 0700 FROM BRITTA DUBOSE.
[2024-02-23 07:38] VITALS: BP 104/66; PULSE 54; RESP 17; TEMP 36.4; O2SAT 94
--- NOTE | 2024-02-23 16:19 | PC.NURSE ---
DR HERRING OUTPATIENT STAFF CAME TO EVALUATE PT. DOCUMENT COORDINATOR REPORTED BACK TO THIS NURSE THAT THE PT WOULD NEED TO BE ADMITTED TO NPU. DR. MATHEWS NOTIFIED.
[2024-02-23 18:53] VITALS: BP 122/76; PULSE 65; RESP 16; TEMP 36.5; O2SAT 99
[2024-02-23] MEDS: nicotine 14 mg Patch 1 PATCH TRANSDERMA (20:35)
[2024-02-23 21:49] VITALS: BP 129/79; PULSE 65; RESP 20; TEMP 36.8; O2SAT 98
[2024-02-23 22:00] VITALS: BP 129/79; PULSE 65; RESP 20; TEMP 36.8; O2SAT 98
[2024-02-23] MEDS: fluoxetine 20 mg Capsule PO (22:39)
[2024-02-24 06:00] VITALS: BP 95/58; PULSE 51; RESP 16; TEMP 35.9; O2SAT 96
[2024-02-24] MEDS: benztropine 1 mg Tablet PO ×2 (08:08→18:40)
[2024-02-24] MEDS: fluoxetine 20 mg Capsule PO ×3 (08:08→21:37)
[2024-02-24] MEDS: haloperidol 5 mg Tablet PO ×2 (08:08→18:40)
[2024-02-24] MEDS: nicotine 4 mg lozenge MUCOUS MEM ×2 (08:10→19:49)
--- NOTE | 2024-02-24 09:46 | P.NPUHP_ITS ---
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 admission and was able to return to [facility] and work with the social work team for appropriate outpatient resource planning. He was also seen by case management while in the hospital and case management resources were put into place. He had modest improvement during the stay and was able to contract for safety outside of the hospital prior to discharge. During the hospitalization, the patient had routine laboratory studies which were within normal limits except for a few outliers. Additionally, there was a general medical evaluation which was also within normal limits and revealed no new acute processes. At the time of discharge, he denied psychosis or lethality. Mood and anxiety were well managed. The patient endorsed a plan to avoid all drugs of abuse and follow up with the aftercare recommendations of the treatment team. The patient was evaluated and deemed to be absent credible lethality and had achieved the maximum benefit from an inpatient hospitalization, and so was discharged. Meds NPU Home Medications Medication Instructions Recorded Confirmed Last Taken Type benztropine 1 mg tablet 1 mg PO BID #60 tabs 05/22/24 Unknown Rx fluoxetine 20 mg capsule 20 mg PO TID #90 caps 02/24/24 Unknown Rx haloperidol 5 mg tablet 5 mg PO BID 30 days #60 tabs 02/24/24 Unknown Rx quetiapine 400 mg tablet 400 mg PO BEDTIME 30 days #30 tabs 02/24/24 Unknown Rx Allergies Allergy/AdvReac Type Severity Reaction Status Date / Time No Known Allergies Allergy Verified 02/16/24 09:59 PFSH NPU 2 PFSH: Medical History (Updated 02/23/24 @ 16:48 by Yeny Lo MD) Major depressive disorder, recurrent severe without psychotic features Psychiatric care Social History Smoking and tobacco/nicotine status: current every day tobacco/nicotine user e- cigarettes E-Cigarette Details: vaporizer device and with nicotine E-cig/vape details: 5 mg/Day Quit status (tobacco/nicotine): considering quitting Second hand smoke exposure: No Current gender identity: Male Mental Status Exam 2 MSE Comments: This is an obese white male in hospital scrubs with adequate grooming and eye contact. No abnormal involuntary motor movements other than mild psychomotor retardation. He was cooperative with exam in no acute distress. Speech was slightly decreased rate and volume. Mood described as okay His affect was restricted. Thought process was linear and organized. Thought content: Patient denied current suicidal or homicidal ideation, there were no delusions reported or noted, he denied any visual hallucinations and reported infrequent auditory hallucinations. He did not appear to be responding to internal stimuli. Attention and concentration were intact and memory appeared mostly reliable but were not formally tested. He is alert and oriented x3. Insight was limited. Judgment remained poor and impulse control is limited. Vitals/I&O/Wt Last Vital Signs Temp 96.6 F L 02/24/24 06:00 Pulse 51 L 02/24/24 06:00 Resp 16 02/24/24 06:00 BP 95/58 02/24/24 06:00 Pulse Ox 96 02/24/24 06:00 O2 Del Method Room Air 02/24/24 06:00 Weight last 48 hrs Weight 136.078 kg Data NPU 02/22/24 21:50 02/22/24 21:50 A&P Assessment and plan (1) Acute psychosis: (2) Suicidal ideation: (3) Major depressive disorder, recurrent, severe with psychotic symptoms: (4) Cannabis use disorder, moderate, in early remission, dependence: (5) Nicotine dependence, unspecified, uncomplicated: (6) Cluster A personality disorder in adult: (7) Generalized anxiety disorder: (8) Inhalant use disorder, severe, in early remission, dependence: (9) Alcohol use disorder: (10) Cannabis use disorder: (11) Suicidal ideation: (12) Schizophrenia: Qualifiers: Schizophrenia type: disorganized schizophrenia Qualified Code(s): F20.1 - Disorganized schizophrenia Plan This is a 29-year-old white male well known to the neuropsychiatric unit with known history of depression, psychosis, addiction and residential instability who presents again with significant issues with getting dc'd [place] [facility] [place] [facility] [place] be [place] but with similar reports from previous admissions and we wanted to make sure he is starting to work on accountability 1.? Continue current medications. 2. Given continued/chronic suicidal ideation continued hospitalization for every time he is experiencing the symptoms does not possible. Talked with his outpatient team about the possibility of increased programming and they did increase his exposure to case management since his last presentation. We continue to discuss the importance of him getting intense DBT and CBT treatment as a goal moving forward. He was not following the recommendations to be introduced and have greater visibility at the crisis stabilization center. His treatment team met with her and identified some programming that he was open to and [place]. 3. Encourage individual, group and milieu therapy. 4. Continue every 15 minute checks for safety. 5. Encourage sober living treatment at the highest level of care to which she is willing to commit. 6. Plan for discharge tomorrow to programming in [place]. Involuntary Hold Information 2 96 Hour Hold: 96 Hour Involuntary Admission: No Attestations NPU 2 Medical Necessity Statement*: Inpatient hospitalization is medically necessary and the clinically appropriate intervention at this time. We will monitor and make medication changes as indicated.?Patient will be here for at least 2 midnights. Likely length of stay 1 additional day. Coding Level of Care Code Acute Code for [facility] Diagnoses Acute psychosis F23 Suicidal ideation R45.851 Major depressive disorder, recurrent, severe with psychotic symptoms F33.3 Cannabis use disorder, moderate, in early remission, dependence F12.21 Nicotine dependence, unspecified, uncomplicated F17.200 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 Inhalant use disorder, severe, in early remission, dependence F18.21 Alcohol use disorder F10.90 Cannabis use disorder F12.90 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
[2024-02-24 14:00] VITALS: BP 115/55; PULSE 61; RESP 14; TEMP 36.6; O2SAT 95
--- NOTE | 2024-02-24 14:37 | PC.OT ---
OT eval attempted with pt declining; will attempt again at later time.
[2024-02-24 17:13] VITALS: BP 115/55; PULSE 61; RESP 14; TEMP 36.6; O2SAT 95
[2024-02-24 20:53] VITALS: BP 118/64; PULSE 125; RESP 18; TEMP 36.7; O2SAT 96
[2024-02-25 03:14] VITALS: BP 134/77; PULSE 82; RESP 18; TEMP 36.4; O2SAT 98
--- NOTE | 2024-02-25 03:15 | P.NPUDS_ITS ---
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 [employer] [facility] for him to return when he is able to contract for safety Hospital Course Hospital Course He acclimated to the individual, group and milieu therapies provided. He presented reporting lethality however we had excepted that these presentations were a reflection of his need for resources in the face of diminishing resources. He had been kicked out of [facility] and had no place to go. We did not change any medications. He worked with the social work team to identify re sources in [place] and agreed to discharge in the morning to those resources. He was also seen by case management while in the emergency department and case management resources were put into place and they were extremely helpful in developing this plan. He had modest improvement during the stay and was able to contract for safety outside of the hospital prior to discharge. During the hospitalization, the patient had routine laboratory studies which were within normal limits except for a few outliers. Additionally, there was a general medical evaluation which was also within normal limits and revealed no new acute processes. At the time of discharge, he denied psychosis or lethality. Mood and anxiety were well managed. The patient endorsed a plan to avoid all drugs of abuse and follow up with the aftercare recommendations of the treatment team. The patient was evaluated and deemed to be absent credible lethality and had achieved the maximum benefit from an inpatient hospitalization, and so was discharged. Involuntary Hold Information 96 Hour Hold: 96 Hour Involuntary Admission: No Mental Status Exam MSE Comments: This is an obese white male in hospital scrubs with adequate grooming and eye contact. No abnormal involuntary motor movements other than mild psychomotor retardation. He was cooperative with exam in no acute distress. Speech was slightly decreased rate and volume. Mood described as okay His affect was restricted. Thought process was linear and organized. Thought content: Patient denied current suicidal or homicidal ideation, there were no delusions reported or noted, he denied any visual hallucinations and reported infrequent auditory hallucinations. He did not appear to be responding to internal stimuli. Attention and concentration were intact and memory appeared mostly reliable but were not formally tested. He is alert and oriented x3. Insight was limited. Judgment remained poor and impulse control is limited. Discharge Data Studies Completed and Pending: Laboratory Results WBC 9.17 10^3/uL (3.2 9-11.43) 02/22/24 21:50 RBC 4.84 10^6/uL (3.8 5-5.65) 02/22/24 21:50 Hgb 13.80 g/dL (11.27 -16.99) 02/22/24 21:50 Hct 42.1 % (37-53) 02/22/24 21:50 MCV 87.0 fl (82-101) 02/22/24 21:50 MCH 28.5 pg (27-33) 02/22/24 21:50 MCHC 32.8 g/dL (30-55) 02/22/24 21:50 RDW 12.9 % (12.1-15.1 ) 02/22/24 21:50 Plt Count 203 10^3/cmm (157 -399) 02/22/24 21:50 MPV 10.5 fL (7.4-10.4 ) H 02/22/24 21:50 Neut % (Auto) 77.2 % 02/22/24 21:50 Lymph % (Auto) 16.8 % 02/22/24 21:50 [place] % (Auto) 4.9 % 02/22/24 21:50 Eos % (Auto) 0.4 % 02/22/24 21:50 Baso % (Auto) 0.4 % 02/22/24 21:50 Neut # (Auto) 7.07 10^3/uL (1.8 -7.7) 02/22/24 21:50 Lymph # (Auto) 1.5 10^3/uL (0.8- 4.8) 02/22/24 21:50 [place] # (Auto) 0.5 10^3/uL (0.2- 0.9) 02/22/24 21:50 Eos # (Auto) 0.0 10^3/uL (0.0- 0.8) 02/22/24 21:50 Baso # (Auto) 0.0 10^3/uL (0.0- 0.1) 02/22/24 21:50 Nucleated RBC % (a uto) 0 % 02/22/24 21:50 Nucleated RBCs # 0.0 /100WBC 02/22/24 21:50 Sodium 137 mmol/L (136-1 45) 02/22/24 21:50 Potassium 4.3 mmol/L (3.5-5 .1) 02/22/24 21:50 Chloride 101 mmol/L (98-10 7) 02/22/24 21:50 Carbon Dioxide 23 mmol/L (22-29) 02/22/24 21:50 Anion Gap 17.3 (5-19) 02/22/24 21:50 BUN 13 mg/dL (6-20) 02/22/24 21:50 Creatinine 0.9 mg/dL (0.7-1. 2) 02/22/24 21:50 GFR Calculation 101.2 mL/min (90- 130) 02/22/24 21:50 Glucose 87 mg/dL (65-115) 02/22/24 21:50 Calculated Osmolal ity 283 mOsm/kg (285- 295) L 02/22/24 21:50 Calcium 9.6 mg/dL (8.5-10 .5) 02/22/24 21:50 Total Bilirubin 0.2 mg/dL (0.15-1 .2) 02/22/24 21:50 AST 19 U/L (0-40) 02/22/24 21:50 ALT 37 U/L (0-41) 02/22/24 21:50 Alkaline Phosphata se 93 U/L (40-130) 02/22/24 21:50 Total Protein 7.5 g/dL (6.6-8.7 ) 02/22/24 21:50 Albumin 4.3 g/dL (3.5-5.2 ) 02/22/24 21:50 Globulin 3.2 g/dL (1.3-4.6 ) 02/22/24 21:50 TSH 1.25 uIU/mL (0.27 -4.20) 02/22/24 21:50 Urine Color Yellow (Yellow) 02/22/24 21:48 Urine Appearance Cloudy (CLEAR) A 02/22/24 21:48 Urine pH 6.5 (5-7) 02/22/24 21:48 Ur Specific Gravit y 1.020 (1.005-1.0 30) 02/22/24 21:48 Urine Protein Neg (Negative) 02/22/24 21:48 Urine Glucose (UA) Norm (Normal) 02/22/24 21:48 Urine Ketones Negative (Negati ve) 02/22/24 21:48 Urine Blood Neg (Negative) 02/22/24 21:48 Urine Nitrate Negative (Negati ve) 02/22/24 21:48 Urine Bilirubin Neg (Negative) 02/22/24 21:48 Urine Urobilinogen Neg mg/dL (Negati ve) 02/22/24 21:48 Ur Leukocyte Shante ase Negative (Negati ve) 02/22/24 21:48 Urine RBC None /hpf (0-2) 02/22/24 21:48 Urine WBC None /hpf (0-5) 02/22/24 21:48 Ur Squamous Epith Cells 0-4 /hpf (0-5) H 02/22/24 21:48 Amorphous Sediment 4+ /hpf 02/22/24 21:48 Urine Bacteria Trace /hpf (NONE) 02/22/24 21:48 Salicylates < 0.3 mg/dL (3-10 ) L 02/22/24 21:50 Urine Opiates Scre en Negative ng/mL (N egative) 02/22/24 21:48 Acetaminophen < 5.0 ug/mL (10-3 0) L 02/22/24 21:50 Ur Barbiturates Sc reen Negative ng/mL (N egative) 02/22/24 21:48 Ur Phencyclidine S crn Negative ng/mL (N egative) 02/22/24 21:48 Ur Amphetamines Sc reen Negative ng/mL (N egative) 02/22/24 21:48 U Benzodiazepines Scrn Negative ng/mL (N egative) 02/22/24 21:48 Urine Cocaine Scre en Negative ng/mL (N egative) 02/22/24 21:48 U Marijuana (THC) Screen Positive ng/mL (N egative) H 02/22/24 21:48 Ethyl Alcohol < 10 mg/dL (0-10) 02/22/24 21:50 Vitals: Last Vital Signs Temp 97.5 F L 02/25/24 03:14 Pulse 82 02/25/24 03:14 Resp 18 02/25/24 03:14 BP 134/77 02/25/24 03:14 Pulse Ox 98 02/25/24 03:14 O2 Del Method Room Air 02/24/24 14:00 Discharge Plan Discharge Patient Disposition: Home Condition: Stable Prescriptions: Continued haloperidol 5 mg tablet 5 mg PO BID 30 Days Qty: 60 1RF benztropine 1 mg tablet 1 mg PO BID Qty: 60 1RF fluoxetine 20 mg capsule 20 mg PO TID Qty: 90 1RF quetiapine 400 mg tablet 400 mg PO BEDTIME 30 Days Qty: 30 1RF Discharge Orders: Discharge Order (Routine); Ordered 02/24/24 Ordered By: Timur Huntley Referrals: [facility] [Other] - 4-7 days (No current openings for appointments. Please do a walk-in Thursday thru Thursday 8am to 4pm for services.) [facility] [Other] - 1-3 days (Application was sent. Call and ask for Young) Discharge Diet: Regular Discharge Activity: Resume usual activity Patient Instructions: Schizophrenia (DC), Suicide Prevention (DC), Opioid Safety Discharge Attestations NPU Time Spent in Discharge Care*: less than 30 min Specific Discharge Activities: Specific discharge activities: discussing with pillowcase folder/social workers/dc planners, documenting/other paperwork and evaluating patient/reviewing data Coding Level of Care Code Acute Code for Chg Fwd Diagnoses Acute psychosis F23 Suicidal ideation R45.851 Major depressive disorder, recurrent, severe with psychotic symptoms F33.3 Cannabis use disorder, moderate, in early remission, dependence F12.21 Nicotine dependence, unspecified, uncomplicated F17.200 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 Inhalant use disorder, severe, in early remission, dependence F18.21 Alcohol use disorder F10.90 Cannabis use disorder F12.90 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
== END 2024-02-25 03:15 | DRG 885 ==
LOC: ER 02-23 16:48 → NP 02-23 21:13
PROVIDERS: Admitting Provider Psychiatry & Neurology Psychiatry; Emergency Provider Emergency Medicine; Visit Provider Psychiatry & Neurology Psychiatry
DX: F32.3 Major depressive disorder, single episode, severe with psychotic features (principal); R45.851 Suicidal ideations; F18.20 Inhalant dependence, uncomplicated; F12.20 Cannabis dependence, uncomplicated; F10.90 Alcohol use, unspecified, uncomplicated; F17.290 Nicotine dependence, other tobacco product, uncomplicated; F41.1 Generalized anxiety disorder; F60.9 Personality disorder, unspecified
CPT/HCPCS: 36415; 80053; 80306; 80307; 81001; 84443; 85025; 93005; 99285

== ENCOUNTER 2024-12-03 19:33 | Emergency (ER) | payer MEDICAID, SELFPAY ==
[2024-02-19 13:09] VITALS: BP 116/74; BMI 35.3
[2024-12-03 19:36] VITALS: BP 156/82; PULSE 110; RESP 18; TEMP 36.6; O2SAT 97; BMI 29.6
--- NOTE | 2024-12-03 20:28 | ED_ITS ---
HPI - Dental/Oral 2 General: Chief complaint: Dental/Oral Stated complaint: tooth pain Time Seen by Provider: 12/03/24 19:43 Source: patient Mode of arrival: ambulatory Limitations: no limitations History of Present Illness: Patient is a 29-year-old male that presents to the emergency department with pain in his left upper tooth. He states this started hurting a couple days ago but has gotten worse. He denies any fever or chills. He denies any nausea or vomiting. He denies any allergies to any medications. The patient states he is a smoker. He presents to the emergency department for further evaluation and treatment. Associated symptoms: Denies fever(s) Related Data Previous Rx's ?Medication ?Instructions ?Recorded benztropine 1 mg tablet 1 mg PO BID #60 tabs 4 fluoxetine 20 mg capsule 20 mg PO TID #90 caps haloperidol 5 mg tablet 5 mg PO BID 30 days #60 tabs 02/24/24 quetiapine 400 mg tablet 400 mg PO BEDTIME 30 days #3 0 tabs 02/24/24 amoxicillin 875 mg-potassium 1 tab PO BID #19 tabs 10/29 clavulanate 125 mg tablet chlorhexidine gluconate 0.12 % 15 ml buccal BID PRN de ntal 12/03/24 mouthwash (Peridex) infection #473 mL lidocaine HCl 2 % mucosal solution 15 ml mucous membra ne Q4H PRN pain 12/03/24 (Lidocaine Viscous) #100 mL naproxen 500 mg tablet 500 mg PO Q12H PRN pain #10 tabs 12/03/24 Allergies Allergy/AdvReac Type Severity Reaction Status Date / Time No Known Allergies Allergy Verified 02/16/24 09:59 Review of Systems 2 Const: Denies: fever(s) or chills Eyes: Denies: eye discharge or eye redness ENMT: Reports: dental pain (Left upper molar) Card: Denies: chest pain Resp: Denies: dyspnea, non-productive cough or wheezing GI: Denies: abdominal pain, nausea or vomiting Musc: Denies: neck pain or back pain Skin/Breast: Denies: rash or erythema PFSH ED 2 PFSH: Medical History Major depressive disorder, recurrent severe without psychotic features Psychiatric care Social History Smoking and tobacco/nicotine status: current every day tobacco/nicotine user e- cigarettes E-Cigarette Details: vaporizer device and with nicotine E-cig/vape details: 5 mg/Day Quit status (tobacco/nicotine): considering quitting Second hand smoke exposure: No Current gender identity: Male Physical Exam 2 Const: COMMON NORMALS: no acute distress and alert GENERAL APPEARANCE: c ooperative ORIENTATION/CONSCIOUSNESS: Yes awake HENMT: COMMON NORMALS: normocephalic, atraumatic, external ears normal and Normal external nose present HEAD & SCALP: normocephalic and atraumatic F BIA & SINUS: normal facial exam and face symmetric NOSE: Normal external nose present EXTERNAL EAR: Yes external ears normal MOUTH: Normal oral and palatal mucosa present TEETH & GINGIVA IMAGES: 1. Tender to palpation with dental caries. There is no pointing abscess noted but there is some gingival inflammation. THROAT: posterior oropharynx normal Eye: COMMON NORMALS: conjunctivae normal CONJUNCTIVA: Yes conjunctivae normal Neck/C-Spine: COMMON NORMALS: full ROM and no meningeal signs; negative for no lymphadenopathy and negative for supple Resp: COMMON NORMALS: normal respiratory effort, No retractions and clear to auscultation bilaterally AUSCULTATION: clear to auscultation bilaterally, no crackles, no rales, no rhonchi and no wheezes Cardio: COMMON NORMALS: regular rate (Heart rate down to 88 on exam.) and regular rhythm RATE: regular rate (Heart rate down to 88 on exam.) RHYTHM: regular rhythm Extremity: COMMON NORMALS: full ROM Neuro: SENSORIUM/ORIENTATION: Yes alert MENINGEAL SIGNS: Yes no meningeal signs Psych: MOOD & AFFECT: Yes anxious (Patient appears mildly anxious) Skin: COMMON NORMALS: no rashes or lesions noted and no wounds GENERAL SKIN EXAM: no rashes or lesions noted Course 2 Vital Signs: Vital signs: Vital Signs Temperature 97.9 F 12/03/24 19:36 Pulse Rate 100 12/03/24 20:49 Respiratory Rate 18 12/03/24 19:36 Blood Pressure 156/82 12/03/24 19:36 Pulse Oximetry 98 12/03/24 20:49 Oxygen Delivery Me thod Room Air 12/03/24 19:36 MDM - Dental/Oral Medical Decision Making Patient was advised of the exam findings. He does have what appears to be infected dental caries on the top left molar. There is some gingivitis as well. The patient was advised he will need to use the antibiotic as directed and follow-up with a dentist for further evaluation and treatment. This tooth will need to be pulled or filled. I advised that he use the medications as directed, quit smoking and follow-up as instructed. He was instructed to return to the emergency department with any worsening symptoms. The patient expressed understanding. Differential Diagnosis Likely gingival abscess, dental caries, toothache and dental abscess No radiology studies performed this visit Critical Care Time 2 Critical Care Time: Critical Care Time: No Discharge Plan Discharge Patient Disposition: Home Clinical Impression: Dental infection, Pain, dental, Dental caries, Gingivitis Condition: Stable Prescriptions: New amoxicillin-pot clavulanate 875-125 mg tablet 1 tab PO BID Qty: 19 0RF chlorhexidine gluconate [Peridex] 0.12 % mouthwash 15 ml buccal BID PRN (Reason: dental infection) Qty: 473 0RF lidocaine HCl [Lidocaine Viscous] 2 % solution 15 ml mucous membrane Q4H PRN (Reason: pain) Qty: 100 0RF naproxen 500 mg tablet 500 mg PO Q12H PRN (Reason: pain) Qty: 10 0RF No Action haloperidol 5 mg tablet 5 mg PO BID 30 Days Qty: 60 1RF benztropine 1 mg tablet 1 mg PO BID Qty: 60 1RF fluoxetine 20 mg capsule 20 mg PO TID Qty: 90 1RF quetiapine 400 mg tablet 400 mg PO BEDTIME 30 Days Qty: 30 1RF Discharge Orders: Discharge ED (Routine); Ordered 12/03/24 Ordered By: Bennett Bah Discharge Diet: Soft Mechanical Discharge Activity: Resume usual activity Patient Instructions: Dental Abscess (ED), Gingivitis (ED), Opioid Safety, Pain Management Activity Restrictions/Additional Instructions: Use the medications as directed. Your prescription was sent electronically to the [facility] pharmacy in [place]. Warm salt water rinses 3 times a day. Follow-up with a dentist as soon as possible. Warm compresses 15 minutes at a time, 5 times throughout the day as needed for pain. If the warm compress makes the swelling worse you may alternate with ice. Return to the emergency department with any worsening symptoms. Print Language: Citizen [place] Coding Level of Care Code ED [employer] for Eric Glover
[2024-12-03] MEDS: ketorolac 30 mg/mL INJ 15 MG IM (20:41)
[2024-12-03] MEDS: amoxicillin-clav 875-125 mg Tablet 1 TAB PO (20:41)
[2024-12-03] MEDS: lidocaine 2% viscous 15 mL UDC MUCOUS MEM (20:41)
[2024-12-03 20:49] VITALS: PULSE 100; O2SAT 98
== END 2024-12-03 20:50 | disposition home or self-care (01) ==
PROVIDERS: Emergency Provider Physician Assistant
DX: K04.7 Periapical abscess without sinus (principal); K08.89 Other specified disorders of teeth and supporting structures; K02.9 Dental caries, unspecified; K05.10 Chronic gingivitis, plaque induced; F17.290 Nicotine dependence, other tobacco product, uncomplicated
CPT/HCPCS: 12345; 96372; 99284; J1885

== ENCOUNTER 2024-12-04 02:32 | Emergency (ER) | payer MEDICAID, SELFPAY ==
[2024-02-19 13:09] VITALS: BP 116/74; BMI 35.3
[2024-12-04 02:46] VITALS: BP 156/77; PULSE 82; RESP 20; O2SAT 98
--- NOTE | 2024-12-04 03:11 | ED_ITS ---
HPI - Dental/Oral General: Chief complaint: Dental/Oral Stated complaint: TOOTH PAIN Time Seen by Provider: 12/04/24 02:48 History of Present Illness: 29-year-old male [facility] He again rides an ambulance to the emergency department for toothache. He states that his medication he received earlier helped, but it wore off. Pharmacy has been closed and he has not been able to get his medication yet. He thinks he may have a fever. No vomiting, no increased swelling. Related Data Previous Rx's ?Medication ?Instructions ?Recorded benztropine 1 mg tablet 1 mg PO BID #60 tabs 4 fluoxetine 20 mg capsule 20 mg PO TID #90 caps haloperidol 5 mg tablet 5 mg PO BID 30 days #60 tabs 02/24/24 quetiapine 400 mg tablet 400 mg PO BEDTIME 30 days #3 0 tabs 02/24/24 amoxicillin 875 mg-potassium 1 tab PO BID #19 tabs 10/29 clavulanate 125 mg tablet chlorhexidine gluconate 0.12 % 15 ml buccal BID PRN de ntal 12/03/24 mouthwash (Peridex) infection #473 mL lidocaine HCl 2 % mucosal solution 15 ml mucous membra ne Q4H PRN pain 12/03/24 (Lidocaine Viscous) #100 mL naproxen 500 mg tablet 500 mg PO Q12H PRN pain #10 tabs 12/03/24 Allergies Allergy/AdvReac Type Severity Reaction Status Date / Time No Known Allergies Allergy Verified 02/16/24 09:59 [facility] ED PFSH: Medical History Major depressive disorder, recurrent severe without psychotic features Psychiatric care Social History Smoking and tobacco/nicotine status: current every day tobacco/nicotine user e- cigarettes E-Cigarette Details: vaporizer device and with nicotine E-cig/vape details: 5 mg/Day Quit status (tobacco/nicotine): considering quitting Second hand smoke exposure: No Current gender identity: Male Physical Exam Const: COMMON NORMALS: no acute distress GENERAL APPEARANCE: cooperative; not ill appearing HENMT: COMMON NORMALS: normocephalic, atraumatic, external ears normal and Normal external nose present HEAD & SCALP: normocephalic and atraumatic FACE & SINUS: normal facial exam and face symmetric; no ecchymosis, no erythema and no edema NOSE: Normal external nose present and Normal nares present EXTERNAL EAR: Yes external ears normal TEETH & GINGIVA: Yes abnormal tooth and associated gingiva (Left upper posterior molar eroded, surrounding swelling) Resp: COMMON NORMALS: normal respiratory effort, No retractions and No use of accessory muscles Cardio: COMMON NORMALS: regular rate and regular rhythm RATE: regular rate RHYTHM: regular rhythm Course Vital Signs: Vital signs: Vital Signs Pulse Rate 83 12/04/24 03:17 Respiratory Rate 18 12/04/24 03:17 Blood Pressure 156/77 12/04/24 03:17 Pulse Oximetry 100 12/04/24 03:17 [facility] - Dental/Oral Medical Decision Making The patient is given oral Toradol, viscous lidocaine, and Augmentin, and 1 Percocet here. He has naproxen and Augmentin at the pharmacy. He was encouraged to get these later this morning and take appropriately. He was also encouraged to follow-up with a dentist. No radiology studies performed this visit Discharge Plan Discharge Patient Disposition: Home Clinical Impression: Dental caries Condition: Stable Prescriptions: No Action haloperidol 5 mg tablet 5 mg PO BID 30 Days Qty: 60 1RF benztropine 1 mg tablet 1 mg PO BID Qty: 60 1RF fluoxetine 20 mg capsule 20 mg PO TID Qty: 90 1RF quetiapine 400 mg tablet 400 mg PO BEDTIME 30 Days Qty: 30 1RF amoxicillin-pot clavulanate 875-125 mg tablet 1 tab PO BID Qty: 19 0RF chlorhexidine gluconate [Peridex] 0.12 % mouthwash 15 ml buccal BID PRN (Reason: dental infection) Qty: 473 0RF lidocaine HCl [Lidocaine Viscous] 2 % solution 15 ml mucous membrane Q4H PRN (Reason: pain) Qty: 100 0RF naproxen 500 mg tablet 500 mg PO Q12H PRN (Reason: pain) Qty: 10 0RF Discharge Orders: Discharge ED (Routine); Ordered 12/04/24 Ordered By: Rodney Avalos Patient Instructions: Dental Abscess (ED), Toothache (ED), Opioid Safety, Pain Management Activity Restrictions/Additional Instructions: see a dentist MITZY. Make sure you fill your medications later this morning at the pharmacy and take as directed. Print Language: Maldivian Coding Level of Care Code ED Station Operator for Eric Glover
[2024-12-04 03:17] VITALS: BP 156/77; PULSE 83; RESP 18; O2SAT 100
[2024-12-04] MEDS: oxyCODONE-APAP 5-325 mg Tablet 1 TAB PO (03:27)
[2024-12-04] MEDS: dexamethasone 4 mg Tablet 10 MG PO (03:27)
[2024-12-04] MEDS: ketorolac 10 mg Tablet PO (03:27)
[2024-12-04] MEDS: amoxicillin-clav 875-125 mg Tablet 1 TAB PO (03:27)
[2024-12-04] MEDS: lidocaine 2% viscous 15 mL UDC 5 ML MUCOUS MEM (03:31)
== END 2024-12-04 03:31 | disposition home or self-care (01) ==
PROVIDERS: Emergency Provider Emergency Medicine
DX: K02.9 Dental caries, unspecified (principal); F17.290 Nicotine dependence, other tobacco product, uncomplicated
CPT/HCPCS: 99283; J8540

== ENCOUNTER 2024-12-04 05:48 | Inpatient (IN) | payer MEDICAID, SELFPAY ==
[2024-02-19 13:09] VITALS: BP 116/74; BMI 35.3
[2024-12-04 05:54] VITALS: BMI 35.5
--- NOTE | 2024-12-04 06:04 | W.ED.PSYCHS ---
HPI - Psych General: Chief Complaint: Psychiatric Symptoms Stated Complaint: SI Time Seen by Provider: 12/04/24 05:54 Source: patient Mode of arrival: ambulatory Limitations: no limitations History of Present Illness: 29 yo male that stes he is suicidal. He has been dealing with denatl pain and states he just no longer wants to live. He sates he wants to kill himself. he has no specific plan. he has a hx of schizophrenia and depression in the past. Associated symptoms: Reports depression and suicidal ideation Related Data Previous Rx's ?Medication ?Instructions ?Recorded lidocaine HCl 2 % mucosal solution 15 ml mucous membrane Q4H PRN pain 12/03/24 (Lidocaine Viscous) #100 mL naproxen 500 mg tablet 500 mg PO Q12H PRN pain #10 tabs 12/03/24 Allergies Allergy/AdvReac Type Severity Reaction Status Date / Time No Known Allergies Allergy Verified 02/16/24 09:59 Review of Systems Const: Denies: fever(s), chills, body aches or change in appetite ENMT: Reports: dental pain; Denies: throat pain Card: Denies: chest pain Resp: Denies: dyspnea GI: Denies: abdominal pain, nausea, vomiting or diarrhea Musc: Denies: neck pain or back pain Skin/Breast: Denies: rash Neuro: Denies: headache(s) Psych: Reports: depression and suicidal ideation [facility] ED PFSH: Medical History Schizophrenia Major depressive disorder, recurrent severe without psychotic features Psychiatric care Social History Smoking and tobacco/nicotine status: current every day tobacco/nicotine user e-cigarettes E-Cigarette Details: vaporizer device and with nicotine E-cig/vape details: 5 mg/Day Quit status (tobacco/nicotine): considering quitting Second hand smoke exposure: No Current gender identity: Male Physical Exam Const: COMMON NORMALS: no acute distress, patient oriented x3 and healthy appearing HENMT: COMMON NORMALS: normocephalic and atraumatic HEAD & SCALP: normocephalic and atraumatic Eye: COMMON NORMALS: conjunctivae normal CONJUNCTIVA: Yes conjunctivae normal Neck/C-Spine: COMMON NORMALS: full ROM and supple Chest: COMMONS NORMALS: normal inspection of the chest Resp: COMMON NORMALS: normal respiratory effort, No retractions, No use of accessory muscles and clear to auscultation bilaterally AUSCULTATION: clear to auscultation bilaterally Cardio: COMMON NORMALS: regular rate, regular rhythm and No murmurs present (Cardio) RATE: regular rate RHYTHM: regular rhythm Extremity: COMMON NORMALS: normal to inspection and full ROM Neuro: COMMON NORMALS: patient oriented x3, moves all extremities and no focal motor deficits Psych: COMMON NORMALS: mental status grossly normal, Normal thought process present and cooperative THOUGHT PROCESS: Normal thought process present Skin: COMMON NORMALS: no rashes or lesions noted and no wounds GENERAL SKIN EXAM: no rashes or lesions noted Course Vital Signs: Vital signs: Vital Signs Temperature 98.7 F 12/04/24 06:17 Pulse Rate 68 12/04/24 06:17 Respiratory Rate 20 H 12/04/24 06:17 Blood Pressure 136/82 12/04/24 06:17 Pulse Oximetry 96 12/04/24 06:17 [facility] - Psych Medical Decision Making Patient presents here with suicidal ideations he is medically cleared I spoke to psychiatrist will admit at this time Medical Records I reviewed the patient's medical records. Lab Data I reviewed the patient's lab results. 12/04/24 06:01 12/04/24 06:01 Laboratory Results WBC 12.13 10^3/uL (3.29-11.43) H 12/04/24 06:01 RBC 4.63 10^6/uL (3.85-5.65) 12/04/24 06:01 Hgb 12.90 g/dL (11.27-16.99) 12/04/24 06:01 Hct 39.0 % (37-53) 12/04/24 06:01 MCV 84.2 fl (82-101) 12/04/24 06:01 MCH 27.9 pg (27-33) 12/04/24 06:01 MCHC 33.1 g/dL (30-55) 12/04/24 06:01 RDW 13.5 % (12.1-15.1) 12/04/24 06:01 Plt Count 236 10^3/cmm (157-399) 12/04/24 06:01 MPV 9.7 fL (7.4-10.4) 12/04/24 06:01 Neut % (Auto) 87.8 % 12/04/24 06:01 Lymph % (Auto) 9.2 % 12/04/24 06:01 Avery % (Auto) 2.1 % 12/04/24 06:01 Eos % (Auto) 0.2 % 12/04/24 06:01 Baso % (Auto) 0.2 % 12/04/24 06:01 Neut # (Auto) 10.65 10^3/uL (1.8-7.7) H 12/04/24 06:01 Lymph # (Auto) 1.1 10^3/uL (0.8-4.8) 12/04/24 06:01 Avery # (Auto) 0.3 10^3/uL (0.2-0.9) 12/04/24 06:01 Eos # (Auto) 0.0 10^3/uL (0.0-0.8) 12/04/24 06:01 Baso # (Auto) 0.0 10^3/uL (0.0-0.1) 12/04/24 06:01 Nucleated RBC % (auto) 0 % 12/04/24 06:01 Nucleated RBCs # 0.0 /100WBC 12/04/24 06:01 Sodium 134 mmol/L (136-145) L 12/04/24 06:01 Potassium 4.3 mmol/L (3.5-5.1) 12/04/24 06:01 Chloride 102 mmol/L (98-107) 12/04/24 06:01 Carbon Dioxide 21 mmol/L (22-29) L 12/04/24 06:01 Anion Gap 15.3 (5-19) 12/04/24 06:01 BUN 9 mg/dL (6-20) 12/04/24 06:01 Creatinine 0.7 mg/dL (0.7-1.2) 12/04/24 06:01 GFR Calculation 135.3 mL/min (90-130) H 12/04/24 06:01 Glucose 117 mg/dL (65-115) H 12/04/24 06:01 Calculated Osmolality 278 mOsm/kg (285-295) L 12/04/24 06:01 Calcium 9.5 mg/dL (8.5-10.5) 12/04/24 06:01 Total Bilirubin 0.2 mg/dL (0.15-1.2) 12/04/24 06:01 AST 35 U/L (0-40) 12/04/24 06:01 ALT 52 U/L (0-41) H 12/04/24 06:01 Alkaline Phosphatase 74 U/L (40-130) 12/04/24 06:01 Total Protein 7.7 g/dL (6.6-8.7) 12/04/24 06:01 Albumin 4.3 g/dL (3.5-5.2) 12/04/24 06:01 Globulin 3.4 g/dL (1.3-4.6) 12/04/24 06:01 Urine Color Yellow (Yellow) 12/04/24 06:05 Urine Appearance Clear (CLEAR) 12/04/24 06:05 Urine pH 6.0 (5-7) 12/04/24 06:05 Ur Specific [place] 1.009 (1.005-1.030) 12/04/24 06:05 Urine Protein Negative (Negative) 12/04/24 06:05 Urine Glucose (UA) Negative (Normal) 12/04/24 06:05 Urine Ketones Negative (Negative) 12/04/24 06:05 Urine Blood Negative (Negative) 12/04/24 06:05 Urine Nitrate Negative (Negative) 12/04/24 06:05 Urine Bilirubin Negative (Negative) 12/04/24 06:05 Urine Urobilinogen 1.0 mg/dL (Negative) 12/04/24 06:05 Ur Leukocyte Esterase Negative (Negative) 12/04/24 06:05 Amorphous Sediment Not Reportable 12/04/24 06:05 Salicylates < 0.3 mg/dL (3-10) L 12/04/24 06:01 Urine Opiates Screen Negative ng/mL (Negative) 12/04/24 06:05 Acetaminophen < 5.0 ug/mL (10-30) L 12/04/24 06:01 Ur Barbiturates Screen Negative ng/mL (Negative) 12/04/24 06:05 Ur Phencyclidine Scrn Negative ng/mL (Negative) 12/04/24 06:05 Ur Amphetamines Screen Negative ng/mL (Negative) 12/04/24 06:05 U Benzodiazepines Scrn Negative ng/mL (Negative) 12/04/24 06:05 Urine Cocaine Screen Negative ng/mL (Negative) 12/04/24 06:05 U Marijuana (THC) Screen Negative ng/mL (Negative) 12/04/24 06:05 Ethyl Alcohol < 10 mg/dL (0-10) 12/04/24 06:01 No radiology studies performed this visit Discharge Plan Discharge Patient Disposition: Admitted As Inpatient Admit Provider: Timur Huntley Clinical Impression: Suicidal ideation Condition: Stable Coding Level of Care Code ED Switch Engineer for Eric Glover
[2024-12-04 06:10] LABS: Basophils % 0.2 %; Eosinophils % 0.2 %; Lymphocytes # 1.1 10^3/uL (0.8-4.8); Lymphocytes % 9.2 %; Mean Corpuscular HGB Conc 33.1 g/dL (30-55); Mean Corpuscular Hemoglobin 27.9 pg (27-33); Mean Corpuscular Volume 84.2 fl (82-101); Mean Platelet Volume 9.7 fL (7.4-10.4); Monocytes # 0.3 10^3/uL (0.2-0.9); Monocytes % 2.1 %; Neutrophils # 10.65 10^3/uL (1.8-7.7); Neutrophils % 87.8 %; Nucleated Red Blood Cells % 0 %; Platelet Count 236 10^3/cmm (157-399); Red Blood Count 4.63 10^6/uL (3.85-5.65); Red Cell Distribution Width 13.5 % (12.1-15.1); White Blood Count 12.13 10^3/uL (3.29-11.43)
[2024-12-04 06:10] LABS: Add Urine Microscopic? NO
[2024-12-04 06:14] LABS: Bilirubin Urine Negative (Negative); Blood Urine Negative (Negative); Glucose Urine UA Negative (Normal); Ketones Urine Negative (Negative); Leukocyte Esterase Urine Negative (Negative); Nitrate Urine Negative (Negative); Protein Urine Negative (Negative); Specific Gravity, Urine 1.009 (1.005-1.030); Urine Appearance Clear (CLEAR); Urine Color Yellow (Yellow)
[2024-12-04 06:17] VITALS: BP 136/82; PULSE 68; RESP 20; TEMP 37.1; O2SAT 96
[2024-12-04 06:17] LABS: Charge for UA Resulting for Rev
[2024-12-04 06:21] LABS: Amphetamines Screen Urine Negative (Negative); Barbiturates Screen Urine Negative (Negative); Benzodiazepines Screen Urine Negative (Negative); Cocaine Screen Urine Negative (Negative); Opiate Screen Urine Negative (Negative); PCP Screen Urine Negative (Negative); THC Screen Urine Negative (Negative)
--- NOTE | 2024-12-04 06:32 | PC.NURSE ---
96 Hour Hold Pt served with copy of 96 HH by this RN and security. Pt A&Ox3, denied need for further education.
[2024-12-04 06:34] LABS: Alanine Aminotransferase 52 U/L (0-41); Albumin Level 4.3 g/dL (3.5-5.2); Alkaline Phosphatase 74 U/L (40-130); Anion Gap 15.3 (5-19); Aspartate Amino Transferase 35 U/L (0-40); Blood Urea Nitrogen 9 mg/dL (6-20); Calcium 9.5 mg/dL (8.5-10.5); Carbon Dioxide 21 mmol/L (22-29); Chloride 102 mmol/L (98-107); Creatinine Clr Calc Pharmacy 241.8989; Globulin 3.4 g/dL (1.3-4.6); Glomerular Filtration Rate 135.3 mL/min (90-130); Glucose 117 mg/dL (65-115); Osmolality Calculated 278 mOsm/kg (285-295); Potassium 4.3 mmol/L (3.5-5.1); Sodium 134 mmol/L (136-145); Total Bilirubin 0.2 mg/dL (0.15-1.2); Total Protein 7.7 g/dL (6.6-8.7)
[2024-12-04 06:36] LABS: Acetaminophen < 5.0 ug/mL (10-30); Alcohol Level < 10 mg/dL (0-10); Salicylate < 0.3 mg/dL (3-10)
[2024-12-04 16:58] VITALS: BP 144/72; PULSE 72; RESP 18; O2SAT 98
[2024-12-04 20:25] VITALS: BP 126/80; PULSE 69; RESP 18; O2SAT 94
[2024-12-04 20:44] VITALS: BP 126/80; PULSE 69; RESP 18; O2SAT 94
[2024-12-04] MEDS: trazodone 50 mg Tablet PO (21:19)
[2024-12-04] MEDS: hyDROXYzine 25 mg Capsule 50 MG PO (21:19)
[2024-12-04] MEDS: nicotine 4 mg lozenge MUCOUS MEM (21:19)
[2024-12-04 22:00] VITALS: BP 121/71; PULSE 86; RESP 18; TEMP 36.7; O2SAT 97
--- NOTE | 2024-12-05 00:54 | PC.ADMIT ---
Homeless Admission Note: The patient,Braulio Terrazas,29 y/o, was given written information regarding hospital policies, unit procedures and contact persons. Patient's smoking status: current every day smoker. Vital Signs - 8 hr 12/04/24 16:58 12/04/24 16:58 12/04/24 20:25 Temperature Pulse Rate 72 72 69 Respiratory Rate 18 18 18 Blood Pressure 144/72 144/72 126/80 Pulse Oximetry 98 98 94 Oxygen Delivery Method Room Air 12/04/24 20:44 12/04/24 20:59 12/04/24 22:00 Temperature 98.1 F Pulse Rate 69 86 Respiratory Rate 18 18 Blood Pressure 126/80 121/71 Pulse Oximetry 94 97 Oxygen Delivery Method Room Air Pt arrived to [facility] at 2044 by wheelchair on a 96 hour hold. Pts skin assessment was unremarkable and pt was placed into [facility] scrubs. Pt states that he is here because he went to the ER earlier today for tooth pain and he did not think they were taking him seriously so once he was discharged he readmitted himself to the ER for suicidal ideations with no specific plan at this time. Pt states that he has never attempted suicide before but states he has been hospitalized for SI several times in the past; including being hospitalized 1 week ago at [facility]. Pt denies SI/HI/AVH during assessment. Pt was orientated to the unit by this RN. All questions answered and support was voiced.
[2024-12-05 06:00] VITALS: BP 111/59; PULSE 57; RESP 17; O2SAT 95
--- NOTE | 2024-12-05 06:02 | W.PM.NPUH&PS ---
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 Present Illness: Patient is a 27-year-old male who presents to ED today for evaluation of suicidal ideations. Patient states he has felt suicidal for several days now. He states he has a plan to run out in front of traffic. Patient reportedly is at [facility] rehabilitation from alcohol abuse and he states many of the residents are causing him to feel suicidal. He states it is a high stress/high emotion environment and he does not seem to be coping well. He does report previous suicide attempts. Patient states he was released from NPU approximately a month and a half ago. He has been taking all of his psychiatric medications as prescribed. Reports hallucinations but states he has schizophrenia so these are chronic. MD complaint: suicidal ideation and feels depressed Onset (ago): day(s) Duration: constant History of same: Yes Context: significant life stressor Associated psychiatric symptoms: depression and suicidal ideation Associated symptoms: Reports auditory hallucinations, visual hallucinations, depression and suicidal ideation; Deny homicidal ideation Treatments prior to arrival: none If self harm: admits thoughts of self harm He was admitted to the neuropsychiatric unit for definitive treatment of those issues. He presents today reporting that he is just feeling depressed. He was just discharged from here 12/29/2022 and an excerpt of that discharge is included below for context and the fact that after he left here he went directly to [facility] and is now coming back from [facility]. He reports that he is near completion of the program and they are looking for options for him. He acknowledged that probably some of the sadness of feeling overwhelmed has to do with the fact that he is homeless and they have not found a viable option for him at this point though they are fully prepared to receive him back at discharge from here. We discussed the fact that his Prozac is only a 20 mg which is a fairly low-dose and discussed the risks, benefits and alternatives of increasing that to 40 mg and he understood and agreed to proceed as is documented in this note. We discussed this hopefully being a short stay was an increase in his antidepressant and collaboration with [facility] for him to return when he is able to contract for safety Hospital Course He acclimated to the individual, group and milieu therapies provided. He presented reporting lethality however we had excepted that these presentations were a reflection of his need for resources in the face of diminishing resources. He had been kicked out of [facility] and had no place to go. We did not change any medications. He worked with the social work team to identify resources in [place] and agreed to discharge in the morning to those resources. He was also seen by case management while in the emergency department and case management resources were put into place and they were extremely helpful in developing this plan. He had modest improvement during the stay and was able to contract for safety outside of the hospital prior to discharge. During the hospitalization, the patient had routine laboratory studies which were within normal limits except for a few outliers. Additionally, there was a general medical evaluation which was also within normal limits and revealed no new acute processes. At the time of discharge, he denied psychosis or lethality. Mood and anxiety were well managed. The patient endorsed a plan to avoid all drugs of abuse and follow up with the aftercare recommendations of the treatment team. The patient was evaluated and deemed to be absent credible lethality and had achieved the maximum benefit from an inpatient hospitalization, and so was discharged. Meds NPU Home Medications ?Medication ?Instructions ?Recorded ?Confirmed ?Last Taken ?Type lidocaine HCl 2 % mucosal solution 15 ml mucous membrane Q4H PRN pain 12/03/24 12/04/24 Unknown Rx (Lidocaine Viscous) #100 mL naproxen 500 mg tablet 500 mg PO Q12H PRN pain #10 tabs 12/03/24 12/04/24 Unknown Rx Allergies Allergy/AdvReac Type Severity Reaction Status Date / Time No Known Allergies Allergy Verified 02/16/24 09:59 PFSH NPU PFSH: Medical History Schizophrenia Major depressive disorder, recurrent severe without psychotic features Psychiatric care Social History Smoking and tobacco/nicotine status: current every day tobacco/nicotine user e-cigarettes E-Cigarette Details: vaporizer device and with nicotine E-cig/vape details: 5 mg/Day Quit status (tobacco/nicotine): considering quitting Second hand smoke exposure: No Current gender identity: Male Mental Status Exam MSE Comments: This is an obese white male in hospital scrubs with limited grooming and eye contact. No abnormal involuntary motor movements other than mild psychomotor retardation. He was cooperative with exam in mild distress. Speech was slightly decreased rate and volume. Mood described as okay His affect was restricted. Thought process was linear and organized. Thought content: Patient denied current suicidal or homicidal ideation, there were no delusions reported but either bizarre or grandiose delusions noted or statements made that sound delusional but represent malingering, he denied any visual hallucinations and reported infrequent auditory hallucinations. He did not appear to be responding to internal stimuli. Attention and concentration were intact and memory appeared somewhat reliable but had some delusional and/or misrepresented statements but were not formally tested. He is alert and oriented x3. Insight was limited. Judgment remained poor and impulse control is limited. Vitals/I&O/Wt Last Vital Signs Temp 98.1 F 12/04/24 22:00 Pulse 86 12/04/24 22:00 Resp 18 12/04/24 22:00 BP 121/71 12/04/24 22:00 Pulse Ox 97 12/04/24 22:00 O2 Del Method Room Air 12/04/24 20:59 Weight last 48 hrs Weight 136.078 kg Data NPU 12/04/24 06:01 12/04/24 06:01 A&P Assessment and plan (1) Acute psychosis: (2) Suicidal ideation: (3) Major depressive disorder, recurrent, severe with psychotic symptoms: (4) Cannabis use disorder, moderate, in early remission, dependence: (5) Nicotine dependence, unspecified, uncomplicated: (6) Cluster A personality disorder in adult: (7) Generalized anxiety disorder: (8) Inhalant use disorder, severe, in early remission, dependence: (9) Alcohol use disorder: (10) Cannabis use disorder: (11) Suicidal ideation: (12) Schizophrenia: Qualifiers: Schizophrenia type: disorganized schizophrenia Qualified Code(s): F20.1 - Disorganized schizophrenia Plan This is a 29-year-old white male well known to the neuropsychiatric unit with known history of depression, psychosis, addiction and residential instability who was last seen almost 10 months ago with significant concerns for overuse of inpatient services and possible malingering presents again with significant issues with lacking outpatient stability with reports of over 1 inpatient stay a month since he left and continued concerns of malingering versus current psychosis likely late on his long-acting injectable Invega. 1.? Continue current medications. 2. Obtain collateral information from [facility] or [facility] in [place] as to the dose of his last injectable as well as any other collateral information we can get about his history for the last 10 months. 3. Encourage individual, group and milieu therapy. 4. Continue every 15 minute checks for safety. 5. Encourage sober living treatment at the highest level of care to which she is willing to commit. 6. May have to consider guardianship. PDMP PDMP Reviewed: Not Reviewed Involuntary Hold Information 96 Hour Hold: 96 Hour Involuntary Admission: No Attestations NPU Medical Necessity Statement*: Inpatient hospitalization is medically necessary and the clinically appropriate intervention at this time. We will monitor and make medication changes as indicated.?Patient will be here for at least 2 midnights. Likely length of stay 7-10 days. Coding Level of Care Code Acute Code for [facility] Fwd Diagnoses Acute psychosis F23 Suicidal ideation R45.851 Major depressive disorder, recurrent, severe with psychotic symptoms F33.3 Cannabis use disorder, moderate, in early remission, dependence F12.21 Nicotine dependence, unspecified, uncomplicated F17.200 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 Inhalant use disorder, severe, in early remission, dependence F18.21 Alcohol use disorder F10.90 Cannabis use disorder F12.90 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
[2024-12-05 14:00] VITALS: BP 112/62; PULSE 68; RESP 16; O2SAT 95
[2024-12-05] MEDS: nicotine 4 mg lozenge MUCOUS MEM ×4 (15:05→20:50)
[2024-12-05] MEDS: acetaminophen 325 mg Tablet 650 MG PO (15:24)
[2024-12-05 20:39] VITALS: BP 130/85; PULSE 65; RESP 18; TEMP 36.7; O2SAT 99
[2024-12-06 06:00] VITALS: BP 106/58; PULSE 62; RESP 18; TEMP 36.6; O2SAT 97
[2024-12-06] MEDS: paliperidone ER 6 mg Tablet PO (07:48)
[2024-12-06] MEDS: nicotine 4 mg lozenge MUCOUS MEM ×5 (12:38→21:31)
[2024-12-06 14:00] VITALS: BP 155/87; PULSE 92; RESP 18; O2SAT 94
[2024-12-06 19:40] VITALS: BP 163/78; PULSE 93; RESP 20; TEMP 36.8; O2SAT 95
--- NOTE | 2024-12-06 20:16 | P.NPUPN_ITS ---
Subjective NPU 2 Subjective: Patient presented today reporting that things are going okay. He continues to be unsure which hospital he was that last. We discussed that we are getting the report from his insurance to try to determine how many times he actually has been hospitalized in the last year as well as determination of what his dose and last Invega injection was. He denied any issues or changes and denied any side effects to the current medication. Mental Status Exam 2 MSE Comments: This is an obese white male in hospital scrubs with limited grooming and eye contact. No abnormal involuntary motor movements other than mild psychomotor retardation. He was cooperative with exam in mild distress. Speech was slightly decreased rate and volume. Mood described as okay His affect was restricted. Thought process was linear and organized. Thought content: Patient denied current suicidal or homicidal ideation, there were no delusions reported but either bizarre or grandiose delusions noted or statements made that sound delusional but represent malingering, he denied any visual hallucinations and reported infrequent auditory hallucinations. He did not appear to be responding to internal stimuli. Attention and concentration were intact and memory appeared somewhat reliable but had some delusional and/or misrepresented statements but were not formally tested. He is alert and oriented x3. Insight was limited. Judgment remained poor and impulse control is limited. Vitals/I&O/Wt Last Vital Signs Temp 98.3 F 12/06/24 19:40 Pulse 93 12/06/24 19:40 Resp 20 H 12/06/24 19:40 BP 163/78 12/06/24 19:40 Pulse Ox 95 12/06/24 19:40 O2 Del Method Room Air 12/06/24 19:40 Data NPU 12/04/24 06:01 12/04/24 06:01 A&P Assessment and plan (1) Acute psychosis: (2) Suicidal ideation: (3) Major depressive disorder, recurrent, severe with psychotic symptoms: (4) Cannabis use disorder, moderate, in early remission, dependence: (5) Nicotine dependence, unspecified, uncomplicated: (6) Cluster A personality disorder in adult: (7) Generalized anxiety disorder: (8) Inhalant use disorder, severe, in early remission, dependence: (9) Alcohol use disorder: (10) Cannabis use disorder: (11) Suicidal ideation: (12) Schizophrenia: Qualifiers: Schizophrenia type: disorganized schizophrenia Qualified Code(s): F20.1 - Disorganized schizophrenia Plan This is a 29-year-old white male well known to the neuropsychiatric unit with known history of depression, psychosis, addiction and residential instability who was last seen almost 10 months ago with significant concerns for overuse of inpatient services and possible malingering presents again with significant issues with lacking outpatient stability with reports of over 1 inpatient stay a month since he left and continued concerns of malingering versus current psychosis likely late on his long-acting injectable Invega. 1.? Continue current medications. 2. Obtain collateral information from [facility] or [facility] in [place] as to the dose of his last injectable as well as any other collateral information we can get about his history for the last 10 months. 3. Encourage individual, group and milieu therapy. 4. Continue every 15 minute checks for safety. 5. Encourage sober living treatment at the highest level of care to which she is willing to commit. 6. May have to consider guardianship. PDMP PDMP Reviewed: Not Reviewed Involuntary Hold Information 2 96 Hour Hold: 96 Hour Involuntary Admission: No Attestations NPU 2 Medical Necessity Statement*: Inpatient hospitalization is medically necessary and the clinically appropriate intervention at this time. We will monitor and make medication changes as indicated. Likely length of stay 7-10 days. Coding Level of Care Code Acute Code for [facility] Fwd Diagnoses Acute psychosis F23 Suicidal ideation R45.851 Major depressive disorder, recurrent, severe with psychotic symptoms F33.3 Cannabis use disorder, moderate, in early remission, dependence F12.21 Nicotine dependence, unspecified, uncomplicated F17.200 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 Inhalant use disorder, severe, in early remission, dependence F18.21 Alcohol use disorder F10.90 Cannabis use disorder F12.90 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
[2024-12-06] MEDS: hyDROXYzine 25 mg Capsule 50 MG PO (22:57)
[2024-12-07 06:00] VITALS: BP 114/70; PULSE 62; RESP 18; TEMP 36.6; O2SAT 95
[2024-12-07] MEDS: paliperidone ER 6 mg Tablet PO (07:59)
--- NOTE | 2024-12-07 11:25 | W.PM.NPUPNS ---
Subjective NPU Subjective: Patient presented today reporting that he is feeling all right. We talked about him trying to counter past inpatient behaviors and attempting to be more engaged and less isolative while he is here in the hospital this time. We discussed us trying to get a sense of his actual inpatient utilization as the individual we spoke with yesterday clearly had errant information. Still attempting to get collateral information from hospitals and [place]. He denied any side effects to the medication. Mental Status Exam MSE Comments: This is an obese white male in hospital scrubs with limited grooming and eye contact. No abnormal involuntary motor movements other than mild psychomotor retardation. He was cooperative with exam in mild distress. Speech was slightly decreased rate and volume. Mood described as okay His affect was restricted. Thought process was linear and organized. Thought content: Patient denied current suicidal or homicidal ideation, there were no delusions reported but either bizarre or grandiose delusions noted or statements made that sound delusional but represent malingering, he denied any visual hallucinations and reported infrequent auditory hallucinations. He did not appear to be responding to internal stimuli. Attention and concentration were intact and memory appeared somewhat reliable but had some delusional and/or misrepresented statements but were not formally tested. He is alert and oriented x3. Insight was limited. Judgment remained poor and impulse control is limited. Vitals/I&O/Wt Last Vital Signs Temp 97.9 F 12/07/24 06:00 Pulse 62 12/07/24 06:00 Resp 18 12/07/24 06:00 BP 114/70 12/07/24 06:00 Pulse Ox 95 12/07/24 06:00 O2 Del Method Room Air 12/07/24 06:00 Data NPU 12/04/24 06:01 12/04/24 06:01 A&P Assessment and plan (1) Acute psychosis: (2) Suicidal ideation: (3) Major depressive disorder, recurrent, severe with psychotic symptoms: (4) Cannabis use disorder, moderate, in early remission, dependence: (5) Nicotine dependence, unspecified, uncomplicated: (6) Cluster A personality disorder in adult: (7) Generalized anxiety disorder: (8) Inhalant use disorder, severe, in early remission, dependence: (9) Alcohol use disorder: (10) Cannabis use disorder: (11) Suicidal ideation: (12) Schizophrenia: Qualifiers: Schizophrenia type: disorganized schizophrenia Qualified Code(s): F20.1 - Disorganized schizophrenia Plan This is a 29-year-old white male well known to the neuropsychiatric unit with known history of depression, psychosis, addiction and residential instability who was last seen almost 10 months ago with significant concerns for overuse of inpatient services and possible malingering presents again with significant issues with lacking outpatient stability with reports of over 1 inpatient stay a month since he left and continued concerns of malingering versus current psychosis likely late on his long-acting injectable Invega. 1.? Continue current medications. 2. Obtain collateral information from [facility] or [facility] in [place] as to the dose of his last injectable as well as any other collateral information we can get about his history for the last 10 months. 3. Encourage individual, group and milieu therapy. 4. Continue every 15 minute checks for safety. 5. Encourage sober living treatment at the highest level of care to which she is willing to commit. 6. May have to consider guardianship. PDMP PDMP Reviewed: Not Reviewed Involuntary Hold Information 96 Hour Hold: 96 Hour Involuntary Admission: No Attestations NPU Medical Necessity Statement*: Inpatient hospitalization is medically necessary and the clinically appropriate intervention at this time. We will monitor and make medication changes as indicated. Likely length of stay 7-10 days. Coding Level of Care Code Acute Code for [facility] Fwd Diagnoses Acute psychosis F23 Suicidal ideation R45.851 Major depressive disorder, recurrent, severe with psychotic symptoms F33.3 Cannabis use disorder, moderate, in early remission, dependence F12.21 Nicotine dependence, unspecified, uncomplicated F17.200 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 Inhalant use disorder, severe, in early remission, dependence F18.21 Alcohol use disorder F10.90 Cannabis use disorder F12.90 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
[2024-12-07 14:00] VITALS: BP 111/69; PULSE 63; RESP 18; TEMP 36.6; O2SAT 95
[2024-12-07] MEDS: nicotine 4 mg lozenge MUCOUS MEM ×2 (17:52→20:00)
[2024-12-07 20:06] VITALS: BP 111/64; PULSE 68; RESP 17; TEMP 36.6; O2SAT 96
[2024-12-08 06:00] VITALS: BP 111/62; PULSE 89; RESP 16; TEMP 36.4; O2SAT 96
[2024-12-08] MEDS: paliperidone ER 6 mg Tablet PO (09:05)
[2024-12-08] MEDS: nicotine 4 mg lozenge MUCOUS MEM ×7 (10:12→23:07)
--- NOTE | 2024-12-08 12:16 | P.NPUPN_ITS ---
Subjective NPU 2 Subjective: Patient presented today reporting that he is doing okay. We discussed the 21- day hold extension and the concerns we have about his independent functioning given his more than monthly visits to the hospital over the last year and lack of outpatient follow-up with continued symptoms. We discussed awaiting the fax back from [facility] if we can see where his last long-acting injectable was given in the dose. He denies any side effects to the current medication. Mental Status Exam 2 MSE Comments: This is an obese white male in hospital scrubs with limited grooming and eye contact. No abnormal involuntary motor movements other than mild psychomotor retardation. He was cooperative with exam in mild distress. Speech was slightly decreased rate and volume. Mood described as okay His affect was restricted. Thought process was linear and organized. Thought content: Patient denied current suicidal or homicidal ideation, there were no delusions reported but either bizarre or grandiose delusions noted or statements made that sound delusional but represent malingering, he denied any visual hallucinations and reported infrequent auditory hallucinations. He did not appear to be responding to internal stimuli. Attention and concentration were intact and memory appeared somewhat reliable but had some delusional and/or misrepresented statements but were not formally tested. He is alert and oriented x3. Insight was limited. Judgment remained poor and impulse control is limited. Vitals/I&O/Wt Last Vital Signs Temp 97.6 F 12/08/24 06:00 Pulse 89 12/08/24 06:00 Resp 16 12/08/24 06:00 BP 111/62 12/08/24 06:00 Pulse Ox 96 12/08/24 06:00 O2 Del Method Room Air 12/08/24 06:00 Data NPU 12/04/24 06:01 12/04/24 06:01 A&P Assessment and plan (1) Acute psychosis: (2) Suicidal ideation: (3) Major depressive disorder, recurrent, severe with psychotic symptoms: (4) Cannabis use disorder, moderate, in early remission, dependence: (5) Nicotine dependence, unspecified, uncomplicated: (6) Cluster A personality disorder in adult: (7) Generalized anxiety disorder: (8) Inhalant use disorder, severe, in early remission, dependence: (9) Alcohol use disorder: (10) Cannabis use disorder: (11) Suicidal ideation: (12) Schizophrenia: Qualifiers: Schizophrenia type: disorganized schizophrenia Qualified Code(s): F20.1 - Disorganized schizophrenia Plan This is a 29-year-old white male well known to the neuropsychiatric unit with known history of depression, psychosis, addiction and residential instability who was last seen almost 10 months ago with significant concerns for overuse of inpatient services and possible malingering presents again with significant issues with lacking outpatient stability with reports of over 1 inpatient stay a month since he left and continued concerns of malingering versus current psychosis likely late on his long-acting injectable Invega. 1.? Continue current medications. 2. Obtain collateral information from [facility] or [facility] in [place] as to the dose of his last injectable as well as any other collateral information we can get about his history for the last 10 months. 3. Encourage individual, group and milieu therapy. 4. Continue every 15 minute checks for safety. 5. Encourage sober living treatment at the highest level of care to which she is willing to commit. 6. May have to consider guardianship. Filed 21 day hold PDMP PDMP Reviewed: Not Reviewed Involuntary Hold Information 2 96 Hour Hold: 96 Hour Involuntary Admission: No Attestations NPU 2 Medical Necessity Statement*: Inpatient hospitalization is medically necessary and the clinically appropriate intervention at this time. We will monitor and make medication changes as indicated. Likely length of stay 7-10 days. Coding Level of Care Code Acute Code for [facility] Fwd Diagnoses Acute psychosis F23 Suicidal ideation R45.851 Major depressive disorder, recurrent, severe with psychotic symptoms F33.3 Cannabis use disorder, moderate, in early remission, dependence F12.21 Nicotine dependence, unspecified, uncomplicated F17.200 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 Inhalant use disorder, severe, in early remission, dependence F18.21 Alcohol use disorder F10.90 Cannabis use disorder F12.90 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
[2024-12-08 14:00] VITALS: BP 135/89; PULSE 99; RESP 16; TEMP 37.2; O2SAT 99
[2024-12-08 20:05] VITALS: BP 140/93; PULSE 100; RESP 18; TEMP 37.1; O2SAT 95
[2024-12-09 06:00] VITALS: BP 107/68; PULSE 69; RESP 16; TEMP 37.1; O2SAT 97
[2024-12-09] MEDS: nicotine 4 mg lozenge MUCOUS MEM ×3 (08:30→13:08)
[2024-12-09] MEDS: paliperidone ER 6 mg Tablet PO (08:30)
[2024-12-09] MEDS: OLANZapine 5 mg ODT PO (13:49)
[2024-12-09 14:00] VITALS: BP 105/67; PULSE 71; RESP 16; TEMP 36.6; O2SAT 95
--- NOTE | 2024-12-09 15:39 | P.NPUPN_ITS ---
Subjective NPU 2 Subjective: Patient presented today reporting that things are fine. He is tolerating the oral Invega and continue to report a willingness to take the long-acting injectable once we have the dose appropriate. We continue to await information on his inpatient usage over the last 1 to 2 years from utilization as we have struggled getting it from the insurance and we discussed the plans with that information. He continues to have limited motivation and often is isolative per staff reports and direct observation. He denied any side effects to the medication. Mental Status Exam 2 MSE Comments: This is an obese white male in hospital scrubs with limited grooming and eye contact. No abnormal involuntary motor movements other than mild psychomotor retardation. He was cooperative with exam in mild distress. Speech was slightly decreased rate and volume. Mood described as okay His affect was restricted. Thought process was linear and organized. Thought content: Patient denied current suicidal or homicidal ideation, there were no delusions reported but either bizarre or grandiose delusions noted or statements made that sound delusional but represent malingering, he denied any visual hallucinations and reported infrequent auditory hallucinations. He did not appear to be responding to internal stimuli. Attention and concentration were intact and memory appeared somewhat reliable but had some delusional and/or misrepresented statements but were not formally tested. He is alert and oriented x3. Insight was limited. Judgment remained poor and impulse control is limited. Vitals/I&O/Wt Last Vital Signs Temp 98.8 F 12/09/24 06:00 Pulse 69 12/09/24 06:00 Resp 16 12/09/24 06:00 BP 107/68 12/09/24 06:00 Pulse Ox 97 12/09/24 06:00 O2 Del Method Room Air 12/09/24 06:00 Data NPU 12/04/24 06:01 12/04/24 06:01 A&P Assessment and plan (1) Acute psychosis: (2) Suicidal ideation: (3) Major depressive disorder, recurrent, severe with psychotic symptoms: (4) Cannabis use disorder, moderate, in early remission, dependence: (5) Nicotine dependence, unspecified, uncomplicated: (6) Cluster A personality disorder in adult: (7) Generalized anxiety disorder: (8) Inhalant use disorder, severe, in early remission, dependence: (9) Alcohol use disorder: (10) Cannabis use disorder: (11) Suicidal ideation: (12) Schizophrenia: Qualifiers: Schizophrenia type: disorganized schizophrenia Qualified Code(s): F20.1 - Disorganized schizophrenia Plan This is a 29-year-old white male well known to the neuropsychiatric unit with known history of depression, psychosis, addiction and residential instability who was last seen almost 10 months ago with significant concerns for overuse of inpatient services and possible malingering presents again with significant issues with lacking outpatient stability with reports of over 1 inpatient stay a month since he left and continued concerns of malingering versus current psychosis likely late on his long-acting injectable Invega. 1.? Continue current medications. Continue oral Invega until information comes on facts about injectable. 2. Obtain collateral information from [facility] or [facility] in [place] as to the dose of his last injectable as well as any other collateral information we can get about his history for the last 10 months. 3. Encourage individual, group and milieu therapy. 4. Continue every 15 minute checks for safety. 5. Encourage sober living treatment at the highest level of care to which she is willing to commit. 6. May have to consider guardianship. Filed 21 day hold PDMP PDMP Reviewed: Not Reviewed Involuntary Hold Information 2 Hold Status: Legal Status: 96 Hour Hold Date/Time Hold Expires: 12/09/24 @ 00:01 96 Hour Hold: 96 Hour Involuntary Admission: No Attestations NPU 2 Medical Necessity Statement*: Inpatient hospitalization is medically necessary and the clinically appropriate intervention at this time. We will monitor and make medication changes as indicated. Likely length of stay 7-10 days. Coding Level of Care Code Acute Code for [facility] Fwd Diagnoses Acute psychosis F23 Suicidal ideation R45.851 Major depressive disorder, recurrent, severe with psychotic symptoms F33.3 Cannabis use disorder, moderate, in early remission, dependence F12.21 Nicotine dependence, unspecified, uncomplicated F17.200 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 Inhalant use disorder, severe, in early remission, dependence F18.21 Alcohol use disorder F10.90 Cannabis use disorder F12.90 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
[2024-12-09 20:52] VITALS: BP 119/67; PULSE 79; RESP 17; O2SAT 95
[2024-12-10 06:00] VITALS: BP 104/64; PULSE 62; RESP 18; TEMP 36.5; O2SAT 96
[2024-12-10] MEDS: paliperidone ER 6 mg Tablet PO (08:03)
[2024-12-10] MEDS: nicotine 4 mg lozenge MUCOUS MEM ×5 (08:03→20:28)
--- NOTE | 2024-12-10 10:22 | P.NPUPN_ITS ---
Subjective NPU 2 Subjective: Patient presented today reporting that he is doing fine. We discussed getting information about the unit that he was on and having a plan to speak with the nurse on that unit to see if we can obtain information prior to getting more robust information from the fact that was supposed to be sent from them yesterday. We discussed that we would initiate the dose that he was on and continue the oral medication for some time before discontinuing that for the long-acting injectable. He denied any side effects to the medication. Mental Status Exam 2 MSE Comments: This is an obese white male in hospital scrubs with limited grooming and eye contact. No abnormal involuntary motor movements other than mild psychomotor retardation. He was cooperative with exam in mild distress. Speech was slightly decreased rate and volume. Mood described as okay His affect was restricted. Thought process was linear and organized. Thought content: Patient denied current suicidal or homicidal ideation, there were no delusions reported but either bizarre or grandiose delusions noted or statements made that sound delusional but represent malingering, he denied any visual hallucinations and reported infrequent auditory hallucinations. He did not appear to be responding to internal stimuli. Attention and concentration were intact and memory appeared somewhat reliable but had some delusional and/or misrepresented statements but were not formally tested. He is alert and oriented x3. Insight was limited. Judgment remained poor and impulse control is limited. Vitals/I&O/Wt Last Vital Signs Temp 98.7 F 12/10/24 21:07 Pulse 105 H 12/10/24 21:07 Resp 18 12/10/24 21:07 BP 142/81 12/10/24 21:07 Pulse Ox 99 12/10/24 21:07 O2 Del Method Room Air 12/09/24 14:00 Data NPU 12/04/24 06:01 12/04/24 06:01 A&P Assessment and plan (1) Acute psychosis: (2) Suicidal ideation: (3) Major depressive disorder, recurrent, severe with psychotic symptoms: (4) Cannabis use disorder, moderate, in early remission, dependence: (5) Nicotine dependence, unspecified, uncomplicated: (6) Cluster A personality disorder in adult: (7) Generalized anxiety disorder: (8) Inhalant use disorder, severe, in early remission, dependence: (9) Alcohol use disorder: (10) Cannabis use disorder: (11) Suicidal ideation: (12) Schizophrenia: Qualifiers: Schizophrenia type: disorganized schizophrenia Qualified Code(s): F20.1 - Disorganized schizophrenia Plan This is a 29-year-old white male well known to the neuropsychiatric unit with known history of depression, psychosis, addiction and residential instability who was last seen almost 10 months ago with significant concerns for overuse of inpatient services and possible malingering presents again with significant issues with lacking outpatient stability with reports of over 1 inpatient stay a month since he left and continued concerns of malingering versus current psychosis likely late on his long-acting injectable Invega. 1.? Continue current medications. Continue oral Invega until information comes on facts about injectable. Given Invega Sustenna 234 mg IM 12/10/2024. Next dose will be due 01/07/2025. 2. Obtain collateral information from [facility] or [facility] in [place] as to the dose of his last injectable as well as any other collateral information we can get about his history for the last 10 months. Did not have access to fax if was received but was able to finally speak to nurse at [facility] and identify that in October prior to discharge he was given an injection of Invega Sustenna 234 mg IM. So in keeping with recommendation from Invega package inserts we will give him 234 mg IM and give next dose in 30 days. 3. Encourage individual, group and milieu therapy. 4. Continue every 15 minute checks for safety. 5. Encourage sober living treatment at the highest level of care to which she is willing to commit. 6. May have to consider guardianship. Filed 21 day hold PDMP PDMP Reviewed: Not Reviewed Involuntary Hold Information 2 Hold Status: Legal Status: 96 Hour Hold Date/Time Hold Expires: 12/09/24 @ 00:01 96 Hour Hold: 96 Hour Involuntary Admission: No Attestations NPU 2 Medical Necessity Statement*: Inpatient hospitalization is medically necessary and the clinically appropriate intervention at this time. We will monitor and make medication changes as indicated. Likely length of stay 7-10 days. Coding Level of Care Code Acute Code for [facility] Fwd Diagnoses Acute psychosis F23 Suicidal ideation R45.851 Major depressive disorder, recurrent, severe with psychotic symptoms F33.3 Cannabis use disorder, moderate, in early remission, dependence F12.21 Nicotine dependence, unspecified, uncomplicated F17.200 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 Inhalant use disorder, severe, in early remission, dependence F18.21 Alcohol use disorder F10.90 Cannabis use disorder F12.90 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
[2024-12-10] MEDS: paliperidone palmitate 234 mg Syringe IM (10:23)
[2024-12-10 14:00] VITALS: BP 143/75; PULSE 114; RESP 18; TEMP 37.1; O2SAT 97
[2024-12-10 21:07] VITALS: BP 142/81; PULSE 105; RESP 18; TEMP 37.1; O2SAT 99
[2024-12-11 06:00] VITALS: BP 106/63; PULSE 88; RESP 18; TEMP 36.5; O2SAT 98; BMI 35.8
[2024-12-11] MEDS: paliperidone ER 6 mg Tablet PO (08:00)
[2024-12-11] MEDS: nicotine 4 mg lozenge MUCOUS MEM ×6 (12:21→22:08)
[2024-12-11 14:00] VITALS: BP 154/76; PULSE 84; RESP 17; TEMP 36.5; O2SAT 98
--- NOTE | 2024-12-11 15:39 | P.NPUPN_ITS ---
Subjective NPU 2 Subjective: 29-year-old male admitted with a history of schizophrenia, depression, and alcohol use disorder. The patient had reported that he had had periods of sobriety for several months. He does reported several inpatient psychiatric hospitalizations in the [facility] over the last year. 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 He had reported that he had been struggling with depression as well. The patient had denied any recent suicide attempts although he had reported having been hospitalized several times for suicidal ideation. He reports that he remains anxious about engaging with his family members who he has been estranged with for several months. The patient had reported a past history of exposure to inhalants and other hallucinogens in the past. He had reported that he continues to hear voices that this time that are not his own. Mental Status Exam 2 MSE Comments: This is an obese white male in hospital scrubs with limited grooming and eye contact. No abnormal involuntary motor movements other than mild psychomotor retardation. He was cooperative with exam in mild distress. Speech was slightly decreased rate and volume. Mood described as allright His affect was blunted and mood incongruent. Thought process was linear and organized. Thought content: Patient denied current suicidal or homicidal ideation, there were bizarre delusions noted, and reports of intermittent auditory hallucinations. He did not appear to be responding to internal stimuli. Attention and concentration were intact and memory appeared somewhat reliable but had some delusional and/or misrepresented statements but were not formally tested. He is alert and oriented x3. Insight was limited. Judgment remained poor and impulse control is poor. Vitals/I&O/Wt Last Vital Signs Temp 97.7 F 12/11/24 14:00 Pulse 84 12/11/24 14:00 Resp 17 12/11/24 14:00 BP 154/76 12/11/24 14:00 Pulse Ox 98 12/11/24 14:00 O2 Del Method Room Air 12/11/24 06:00 Weight last 48 hrs Weight 136.985 kg Data NPU 12/04/24 06:01 12/04/24 06:01 A&P Assessment and plan (1) Acute psychosis: (2) Suicidal ideation: (3) Major depressive disorder, recurrent, severe with psychotic symptoms: (4) Cannabis use disorder, moderate, in early remission, dependence: (5) Nicotine dependence, unspecified, uncomplicated: (6) Cluster A personality disorder in adult: (7) Generalized anxiety disorder: (8) Inhalant use disorder, severe, in early remission, dependence: (9) Alcohol use disorder: (10) Cannabis use disorder: (11) Suicidal ideation: (12) Schizophrenia: Qualifiers: Schizophrenia type: disorganized schizophrenia Qualified Code(s): F20.1 - Disorganized schizophrenia Plan This is a 29-year-old white male well known to the neuropsychiatric unit with known history of depression, psychosis, addiction and residential instability who was last seen almost 10 months ago with significant concerns for overuse of inpatient services and possible malingering presents again with significant issues with lacking outpatient stability with reports of over 1 inpatient stay a month since he left and continued concerns of malingering versus current psychosis likely late on his long-acting injectable Invega. 1.? Continue current medications. Continue oral Invega until information comes on facts about injectable. Given Invega Sustenna 234 mg IM 12/10/2024. Next dose will be due 01/07/2025. 2. Obtain collateral information from [facility] or [facility] in [place] as to the dose of his last injectable as well as any other collateral information we can get about his history for the last 10 months. Did not have access to fax if was received but was able to finally speak to nurse at [facility] and identify that in October prior to discharge he was given an injection of Invega Sustenna 234 mg IM. So in keeping with recommendation from Invega package inserts we will give him 234 mg IM and give next dose in 30 days. 3. Encourage individual, group and milieu therapy. 4. Continue every 15 minute checks for safety. 5. Encourage sober living treatment at the highest level of care to which she is willing to commit. 6. May have to consider guardianship. Filed 21 day hold PDMP PDMP Reviewed: Not Reviewed Involuntary Hold Information 2 Hold Status: Legal Status: 96 Hour Hold Date/Time Hold Expires: 12/09/24 @ 00:01 96 Hour Hold: 96 Hour Involuntary Admission: No Attestations NPU 2 Medical Necessity Statement*: Inpatient hospitalization is medically necessary and the clinically appropriate intervention at this time. We will monitor and make medication changes as indicated. Likely length of stay 7-10 days. Coding Level of Care Code Acute Code for g Fwd Diagnoses Acute psychosis F23 Suicidal ideation R45.851 Major depressive disorder, recurrent, severe with psychotic symptoms F33.3 Cannabis use disorder, moderate, in early remission, dependence F12.21 Nicotine dependence, unspecified, uncomplicated F17.200 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 Inhalant use disorder, severe, in early remission, dependence F18.21 Alcohol use disorder F10.90 Cannabis use disorder F12.90 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
--- NOTE | 2024-12-11 16:54 | PC.NURSE ---
Pt. has been alert and orient x 4, walking around in the hallway and dayroom most of the day. Pleasant and cooperative. Around 1400 today pt. did start drinking several glasses of tea, coffee, punch, around 10 glasses.
[2024-12-11 20:14] VITALS: BP 171/84; PULSE 90; RESP 18; TEMP 36.9; O2SAT 97
[2024-12-12 06:00] VITALS: BP 121/66; PULSE 76; RESP 17; O2SAT 95
[2024-12-12] MEDS: paliperidone ER 6 mg Tablet PO (08:41)
[2024-12-12] MEDS: nicotine 4 mg lozenge MUCOUS MEM ×4 (12:04→21:29)
[2024-12-12 14:00] VITALS: BP 131/76; PULSE 84; RESP 16; TEMP 37.2; O2SAT 97
--- NOTE | 2024-12-12 14:36 | P.NPUPN_ITS ---
Subjective NPU 2 Subjective: 29-year-old male admitted with a history of schizophrenia, depression, and alcohol use disorder. The patient continued to struggle with completion of activities of daily living. He had reported that he had been hospitalized multiple times while residing in [place]. It is uncertain as to whether the patient had been receiving monthly Invega injections as recommended. He had denied any auditory or visual hallucinations at this time. He had continued to endorse fleeting thoughts of suicide and continued to report depression. He reported having struggles with dealing with his family and stated that he had had limited contact with family at this time with limited supports reported. He stated that he was no longer allowed to return back to his previous halfway or places of residence in [place] as he had been allegedly noncompliant with their rules. He reported no recent legal problems at this time. He had continued to spend much of the day in his room, reporting feeling tired. Mental Status Exam 2 MSE Comments: This is an obese white male in hospital scrubs with limited grooming and fleeting eye contact lying in bed, appearing apathetic and amotivated. No abnormal involuntary motor movements other than mild psychomotor retardation. He was cooperative with exam in mild distress. Speech was slightly decreased in rate and volume. Mood described as depressed. His affect was blunted. Thought process was linear and organized. Thought content: Patient minimized suicidal or homicidal ideation. There was continued ideas of reference. He denied auditory or visual hallucinations. He did not appear to be responding to internal stimuli. Attention and concentration were intact and memory appeared somewhat reliable but had some delusional and/or misrepresented statements but were not formally tested. He is alert and oriented x3. Insight was limited. Judgment remained poor and impulse control is poor. Vitals/I&O/Wt Last Vital Signs Temp 99.0 F 12/12/24 14:00 Pulse 84 12/12/24 14:00 Resp 16 12/12/24 14:00 BP 131/76 12/12/24 14:00 Pulse Ox 97 12/12/24 14:00 O2 Del Method Room Air 12/12/24 14:00 Weight last 48 hrs Weight 136.985 kg Data NPU 12/04/24 06:01 12/04/24 06:01 A&P Assessment and plan (1) Acute psychosis: (2) Suicidal ideation: (3) Major depressive disorder, recurrent, severe with psychotic symptoms: (4) Cannabis use disorder, moderate, in early remission, dependence: (5) Nicotine dependence, unspecified, uncomplicated: (6) Cluster A personality disorder in adult: (7) Generalized anxiety disorder: (8) Inhalant use disorder, severe, in early remission, dependence: (9) Alcohol use disorder: (10) Cannabis use disorder: (11) Suicidal ideation: (12) Schizophrenia: Qualifiers: Schizophrenia type: disorganized schizophrenia Qualified Code(s): F20.1 - Disorganized schizophrenia Plan This is a 29-year-old white male well known to the neuropsychiatric unit with known history of depression, psychosis, addiction and residential instability who was last seen almost 10 months ago with significant concerns for overuse of inpatient services and possible malingering presents again with significant issues with lacking outpatient stability with reports of over 1 inpatient stay a month since he left and continued concerns of malingering versus current psychosis likely late on his long-acting injectable Invega. 1.? Continue current medications. Continue oral Invega until information comes on facts about injectable. Given Invega Sustenna 234 mg IM 12/10/2024. Next dose will be due 01/07/2025. 2. Obtain collateral information from Rom[facility] or [facility]ha in [place] as to the dose of his last injectable as well as any other collateral information we can get about his history for the last 10 months. Did not have access to fax if was received but was able to finally speak to nurse at [facility] and identify that in October prior to discharge he was given an injection of Invega Sustenna 234 mg IM. So in keeping with recommendation from Invega package inserts we will give him 234 mg IM and give next dose in 30 days. 3. Encourage individual, group and milieu therapy. 4. Continue every 15 minute checks for safety. 5. Encourage sober living treatment at the highest level of care to which she is willing to commit. 6. Will strongly consider guardianship, will file for 21 day hold. Patient currently homeless. PDMP PDMP Reviewed: Not Reviewed Involuntary Hold Information 2 Hold Status: Legal Status: 96 Hour Hold Date/Time Hold Expires: 12/09/24 @ 00:01 96 Hour Hold: 96 Hour Involuntary Admission: No Attestations NPU 2 Medical Necessity Statement*: Inpatient hospitalization is medically necessary and the clinically appropriate intervention at this time. We will monitor and make medication changes as indicated. The patient's likely length of stay 7-10 days. Coding Level of Care Code Acute Code for [facility] Fwd Diagnoses Acute psychosis F23 Suicidal ideation R45.851 Major depressive disorder, recurrent, severe with psychotic symptoms F33.3 Cannabis use disorder, moderate, in early remission, dependence F12.21 Nicotine dependence, unspecified, uncomplicated F17.200 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 Inhalant use disorder, severe, in early remission, dependence F18.21 Alcohol use disorder F10.90 Cannabis use disorder F12.90 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
--- NOTE | 2024-12-12 15:31 | PC.NURSE ---
off unit for [address]
--- NOTE | 2024-12-12 16:36 | PC.NURSE ---
return to unit from court
[2024-12-12 20:04] VITALS: BP 159/87; PULSE 104; RESP 18; TEMP 36.9; O2SAT 96
[2024-12-13 06:00] VITALS: BP 111/66; PULSE 60; RESP 18; TEMP 36.4; O2SAT 96
[2024-12-13] MEDS: paliperidone ER 6 mg Tablet PO (08:11)
--- NOTE | 2024-12-13 12:56 | P.NPUPN_ITS ---
Subjective NPU 2 Subjective: 29-year-old male admitted with a history of schizophrenia, depression, and alcohol use disorder. The patient continued to struggle with completion of activities of daily living. The patient had reported that he wished to go to the [facility]. He reports that he has not been hearing voices and denies any suicidal thoughts at this time. He continued to struggle with completion of activities of daily living. The patient had stayed in his bedroom most of the day although he was able to attend groups. The patient had reported occasional feelings of hopelessness. He denied any manic symptoms. The patient had reported adequate sleep last night. He had reported no side effects from his medication regimen. Mental Status Exam 2 MSE Comments: This is an obese tall white male in hospital scrubs with limited grooming and fleeting eye contact lying in bed, appearing apathetic and amotivated. No abnormal involuntary motor movements other than mild psychomotor retardation. He was cooperative with exam in mild distress. Speech was slightly decreased in rate and volume. Mood described as okay His affect was blunted and mood incongruent. Thought process was linear and organized. Thought content: Patient minimized suicidal or homicidal ideation. There was continued ideas of reference but no overt paranoia. He denied auditory or visual hallucinations. He did not appear to be responding to internal stimuli. Attention and concentration were intact and memory appeared somewhat reliable but had some delusional and/or misrepresented statements but were not formally tested. He is alert and oriented x3. Insight was limited. Judgment remained poor and impulse control is improving. Vitals/I&O/Wt Last Vital Signs Temp 97.6 F 12/13/24 06:00 Pulse 60 12/13/24 06:00 Resp 18 12/13/24 06:00 BP 111/66 12/13/24 06:00 Pulse Ox 96 12/13/24 06:00 O2 Del Method Room Air 12/13/24 06:00 Data NPU 12/04/24 06:01 12/04/24 06:01 A&P Assessment and plan (1) Acute psychosis: (2) Suicidal ideation: (3) Major depressive disorder, recurrent, severe with psychotic symptoms: (4) Cannabis use disorder, moderate, in early remission, dependence: (5) Nicotine dependence, unspecified, uncomplicated: (6) Cluster A personality disorder in adult: (7) Generalized anxiety disorder: (8) Inhalant use disorder, severe, in early remission, dependence: (9) Alcohol use disorder: (10) Cannabis use disorder: (11) Suicidal ideation: (12) Schizophrenia: Qualifiers: Schizophrenia type: disorganized schizophrenia Qualified Code(s): F20.1 - Disorganized schizophrenia Plan This is a 29-year-old white male well known to the neuropsychiatric unit with known history of depression, psychosis, addiction and residential instability who was last seen almost 10 months ago with significant concerns for overuse of inpatient services and possible malingering presents again with significant issues with lacking outpatient stability with reports of over 1 inpatient stay a month since he left and continued concerns of malingering versus current psychosis likely late on his long-acting injectable Invega. 1.? Continue current medications. Continue oral Invega until information comes on facts about injectable. Given Invega Sustenna 234 mg IM 12/10/2024. Next dose will be due 01/07/2025. 2. Obtain collateral information from [facility] or [facility] in [place] as to the dose of his last injectable as well as any other collateral information we can get about his history for the last 10 months. Did not have access to fax if was received but was able to finally speak to nurse at [facility] and identify that in October prior to discharge he was given an injection of Invega Sustenna 234 mg IM in November as well. Patient given Invega sustenna 234mg IM on 12/10/24 on unit. Reduce invega oral to 3mg daily. Start prozac 20mg daily. 3. Encourage individual, group and milieu therapy. 4. Continue every 15 minute checks for safety. 5. Encourage sober living treatment at the highest level of care to which she is willing to commit. 6. Patient on 21 day hold currently. Patient currently homeless with potential placement at [facility] on discharge. PDMP PDMP Reviewed: Not Reviewed Involuntary Hold Information 2 Hold Status: Legal Status: 96 Hour Hold Date/Time Hold Expires: 01/02/25 96 Hour Hold: 96 Hour Involuntary Admission: No Attestations NPU 2 Medical Necessity Statement*: Inpatient hospitalization is medically necessary and the clinically appropriate intervention at this time. We will monitor and make medication changes as indicated. The patient's likely length of stay 7-10 days. Coding Level of Care Code Acute Code for [facility] Fw Diagnoses Acute psychosis F23 Suicidal ideation R45.851 Major depressive disorder, recurrent, severe with psychotic symptoms F33.3 Cannabis use disorder, moderate, in early remission, dependence F12.21 Nicotine dependence, unspecified, uncomplicated F17.200 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 Inhalant use disorder, severe, in early remission, dependence F18.21 Alcohol use disorder F10.90 Cannabis use disorder F12.90 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
[2024-12-13] MEDS: nicotine 4 mg lozenge MUCOUS MEM ×6 (13:23→23:36)
[2024-12-13] MEDS: fluoxetine 20 mg Capsule PO (13:23)
[2024-12-13 14:00] VITALS: BP 145/86; PULSE 86; RESP 17; TEMP 36.4; O2SAT 97
[2024-12-13 19:55] VITALS: BP 115/65; PULSE 77; RESP 17; TEMP 36.7; O2SAT 99
[2024-12-13] MEDS: hyDROXYzine 25 mg Capsule 50 MG PO (23:23)
[2024-12-13] MEDS: trazodone 50 mg Tablet PO (23:23)
--- NOTE | 2024-12-13 23:24 | PC.NURSE ---
Pt requested some meds to help him sleep, administered 50mg Vistaril, and 50mg Trazadone. Pt tolerated well.
[2024-12-14 06:00] VITALS: BP 98/60; PULSE 68; RESP 17; TEMP 36.6; O2SAT 95
[2024-12-14] MEDS: fluoxetine 20 mg Capsule PO (08:35)
[2024-12-14] MEDS: paliperidone ER 3 mg Tablet PO (08:35)
[2024-12-14] MEDS: nicotine 4 mg lozenge MUCOUS MEM ×4 (08:35→21:34)
[2024-12-14 14:00] VITALS: BP 118/62; PULSE 90; RESP 17; O2SAT 97
--- NOTE | 2024-12-14 14:37 | P.NPUPN_ITS ---
Subjective NPU 2 Subjective: 29-year-old male admitted with a history of schizophrenia, depression, and alcohol use disorder. The patient continues to appear apathetic on the unit. He had reported feeling less depressed. He had reported no difficulties with concentration. He had continued to avoid going to groups. He had reported feeling excessively tired despite reporting adequate sleep. Patient reported no side effects from his medications. He remained hopeful about going to [facility]. Mental Status Exam 2 MSE Comments: This is an obese tall white male in hospital scrubs with limited grooming and fleeting eye contact lying in bed, appearing apathetic and amotivated. No abnormal involuntary motor movements other than mild psychomotor retardation. He was cooperative with exam in mild distress. Speech was slightly decreased in rate and volume. Mood described as allright His affect was blunted and mood incongruent. Thought process was linear and organized. Thought content: Patient minimized suicidal or homicidal ideation. There was no pparanoia appreciated. No overt ideas of reference. He denied auditory or visual hallucinations. He did not appear to be responding to internal stimuli. Attention and concentration were intact and memory appeared somewhat reliable but had some delusional and/or misrepresented statements but were not formally tested. He is alert and oriented x3. Insight was limited. Judgment remained poor and impulse control is improving. Vitals/I&O/Wt Last Vital Signs Temp 97.8 F 12/14/24 06:00 Pulse 68 12/14/24 06:00 Resp 17 12/14/24 06:00 BP 98/60 12/14/24 06:00 Pulse Ox 95 12/14/24 06:00 O2 Del Method Room Air 12/14/24 06:00 12/13/24 12/14/24 12/14/24 22:59 06:59 14:59 Intake Total 0 / 0 Balance 0 / 0 Data NPU 12/04/24 06:01 12/04/24 06:01 A&P Assessment and plan (1) Acute psychosis: (2) Schizophrenia: Qualifiers: Schizophrenia type: disorganized schizophrenia Qualified Code(s): F20.1 - Disorganized schizophrenia (3) Suicidal ideation: (4) Major depressive disorder, recurrent, severe with psychotic symptoms: (5) Cannabis use disorder, moderate, in early remission, dependence: (6) Nicotine dependence, unspecified, uncomplicated: (7) Cluster A personality disorder in adult: (8) Generalized anxiety disorder: (9) Inhalant use disorder, severe, in early remission, dependence: (10) Alcohol use disorder: (11) Cannabis use disorder: (12) Suicidal ideation: Plan This is a 29-year-old white male well known to the neuropsychiatric unit with known history of depression, psychosis, addiction and residential instability who was last seen almost 10 months ago with significant concerns for overuse of inpatient services and possible malingering presents again with significant issues with lacking outpatient stability with reports of over 1 inpatient stay a month since he left and continued concerns of malingering versus current psychosis likely late on his long-acting injectable Invega. 1.? Continue current medications. Continue oral Invega until information comes on facts about injectable. Given Invega Sustenna 234 mg IM 12/10/2024. Next dose will be due 01/07/2025. 2. Obtain collateral information from [facility] or [facility] in [place] as to the dose of his last injectable as well as any other collateral information we can get about his history for the last 10 months. Did not have access to fax if was received but was able to finally speak to nurse at [facility] and identify that in October prior to discharge he was given an injection of Invega Sustenna 234 mg IM in November as well. Patient given Invega sustenna 234mg IM on 12/10/24 on unit. Continue invega oral to 3mg daily. Continue prozac 20mg daily. 3. Encourage individual, group and milieu therapy. 4. Continue every 15 minute checks for safety. 5. Encourage sober living treatment at the highest level of care to which she is willing to commit. 6. Patient on 21 day hold currently. Patient currently homeless with potential placement at [facility] on discharge. PDMP PDMP Reviewed: Not Reviewed Involuntary Hold Information 2 Hold Status: Legal Status: 21 Day Hold Date/Time Hold Expires: 01/02/25 96 Hour Hold: 96 Hour Involuntary Admission: No Attestations NPU 2 Medical Necessity Statement*: Inpatient hospitalization is medically necessary and the clinically appropriate intervention at this time. We will monitor and make medication changes as indicated. The patient's likely length of stay 3-5 days. Coding Level of Care Code Acute Code for [facility] Fw Diagnoses Acute psychosis F23 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
[2024-12-14 19:59] VITALS: BP 145/85; PULSE 87; RESP 17; TEMP 36.7; O2SAT 95
[2024-12-14] MEDS: trazodone 50 mg Tablet PO (21:34)
[2024-12-14] MEDS: hyDROXYzine 25 mg Capsule 50 MG PO (21:34)
[2024-12-15 06:00] VITALS: BP 116/71; PULSE 60; RESP 17; TEMP 36.5; O2SAT 95
[2024-12-15] MEDS: nicotine 4 mg lozenge MUCOUS MEM ×7 (06:53→21:44)
[2024-12-15] MEDS: fluoxetine 20 mg Capsule PO (08:58)
[2024-12-15] MEDS: paliperidone ER 3 mg Tablet PO (08:58)
[2024-12-15 14:00] VITALS: BP 121/73; PULSE 79; RESP 16; TEMP 36.6; O2SAT 96
--- NOTE | 2024-12-15 14:31 | W.PM.NPUPNS ---
Subjective NPU Subjective: 29-year-old male admitted with a history of schizophrenia, depression, and alcohol use disorder. Patient had reported some improved mood. He reported no side effects from his medications. He had reported that he often struggles with completing routine tasks of daily living without prompting. He had reported no side effects from his medications. He is stated that he wished to go to the [facility] out reach program when a bed becomes available as he wished to restart his life here in [facility]. He had continued to report a lack of social supports. Mental Status Exam MSE Comments: This is an obese tall white male in hospital scrubs with poor grooming but out of bed and more social today. No abnormal involuntary motor movements other than mild psychomotor retardation. He was cooperative with exam in mild distress. Speech was slightly decreased in rate and volume. Mood described as better. His affect was flat still. Thought process was linear and organized. Thought content: Patient minimized suicidal or homicidal ideation. There was no paranoia appreciated. No overt ideas of reference. He denied auditory or visual hallucinations. He did not appear to be responding to internal stimuli. Attention and concentration were intact and memory appeared somewhat reliable but had some delusional and/or misrepresented statements but were not formally tested. He is alert and oriented x3. Insight was limited. Judgment was improving and impulse control is improving. Vitals/I&O/Wt Last Vital Signs Temp 97.7 F 12/15/24 06:00 Pulse 60 12/15/24 06:00 Resp 17 12/15/24 06:00 BP 116/71 12/15/24 06:00 Pulse Ox 95 12/15/24 06:00 O2 Del Method Room Air 12/15/24 06:00 Data NPU 12/04/24 06:01 12/04/24 06:01 A&P Assessment and plan (1) Acute psychosis: (2) Schizophrenia: Qualifiers: Schizophrenia type: disorganized schizophrenia Qualified Code(s): F20.1 - Disorganized schizophrenia (3) Suicidal ideation: (4) Major depressive disorder, recurrent, severe with psychotic symptoms: (5) Cannabis use disorder, moderate, in early remission, dependence: (6) Nicotine dependence, unspecified, uncomplicated: (7) Cluster A personality disorder in adult: (8) Generalized anxiety disorder: (9) Inhalant use disorder, severe, in early remission, dependence: (10) Alcohol use disorder: (11) Cannabis use disorder: (12) Suicidal ideation: Plan This is a 29-year-old white male well known to the neuropsychiatric unit with known history of depression, psychosis, addiction and residential instability who was last seen almost 10 months ago with significant concerns for overuse of inpatient services and possible malingering presents again with significant issues with lacking outpatient stability with reports of over 1 inpatient stay a month since he left and continued concerns of malingering versus current psychosis likely late on his long-acting injectable Invega. 1.? Continue current medications. Continue oral Invega until information comes on facts about injectable. Given Invega Sustenna 234 mg IM 12/10/2024. Next dose will be due 01/07/2025. 2. Obtain collateral information from [facility] or [facility] in [place] as to the dose of his last injectable as well as any other collateral information we can get about his history for the last 10 months. Did not have access to fax if was received but was able to finally speak to nurse at [facility] and identify that in October prior to discharge he was given an injection of Invega Sustenna 234 mg IM in November as well. Patient given Invega sustenna 234mg IM on 12/10/24 on unit. Continue invega oral to 3mg daily. Continue prozac 20mg daily. 3. Encourage individual, group and milieu therapy. 4. Continue every 15 minute checks for safety. 5. Encourage sober living treatment at the highest level of care to which she is willing to commit. 6. Patient on 21 day hold currently. Patient currently homeless with potential placement at [facility] on discharge likely tommorow. PDMP PDMP Reviewed: Not Reviewed Involuntary Hold Information Hold Status: Legal Status: 21 Day Hold Date/Time Hold Expires: 01/02/25 96 Hour Hold: 96 Hour Involuntary Admission: No Attestations NPU Medical Necessity Statement*: Inpatient hospitalization is medically necessary and the clinically appropriate intervention at this time. We will monitor and make medication changes as indicated. The patient's likely length of stay 1-2 days. Coding Level of Care Code Acute Code for [facility]wd Diagnoses Acute psychosis F23 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
[2024-12-15 19:55] VITALS: BP 140/89; PULSE 89; RESP 17; TEMP 37.2; O2SAT 98
[2024-12-15] MEDS: hyDROXYzine 25 mg Capsule 50 MG PO (21:43)
[2024-12-15] MEDS: trazodone 50 mg Tablet PO (21:43)
[2024-12-16 06:00] VITALS: BP 103/61; PULSE 70; RESP 17; TEMP 36.5; O2SAT 96
[2024-12-16] MEDS: fluoxetine 20 mg Capsule PO (08:28)
[2024-12-16] MEDS: nicotine 4 mg lozenge MUCOUS MEM ×2 (08:28→12:19)
--- NOTE | 2024-12-16 09:31 | P.NPUDS_ITS ---
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 February at the [facility] inpatient unit. He reports that he has been feeling more depressed and endorses suicidal thoughts along with repeated hallucinations that are distracting for him. He reports no substantial changes in his medication regimen or his history compared to his previous admission less than 10 days ago. That that is what I thought so he needs he needs a higher dose of that so I will not have to add a little bit of something to this much appreciated yet by Excerpt from 02/06/23 discharge summary at [facility] unit. Brief History: History of Present Illness Braulio Terrazas is a 27 year old male to the emergency department with the following report: Chief Complaint: Psychiatric Symptoms Stated Complaint: SI Time Seen by Provider: 02/03/23 09:44 Source: patient Mode of arrival: ambulatory Limitations: no limitations History of Present Illness: Patient is a 27-year-old male who presents to ED today for evaluation of suicidal ideations. Patient states he has felt suicidal for several days now. He states he has a plan to run out in front of traffic. Patient reportedly is at [facility] rehabilitation from alcohol abuse and he states many of the residents are causing him to feel suicidal. He states it is a high stress/high emotion environment and he does not seem to be coping well. He does report previous suicide attempts. Patient states he was released from [facility] approxim ately a month and a half ago. He has been taking all of his psychiatric medications as prescribed. Reports hallucinations but states he has schizophrenia so these are chronic. MD complaint: suicidal ideation and feels depressed Onset (ago): day(s) Duration: constant History of same: Yes Context: significant life stressor Associated psychiatric symptoms: depression and suicidal ideation Associated symptoms: Reports auditory hallucinations, visual hallucinations, depression and suicidal ideation; Deny homicidal ideation Treatments prior to arrival: none If self harm: admits thoughts of self harm He was admitted to the neuropsychiatric unit for definitive treatment of those issues. He presents today reporting that he is just feeling depressed. He was just discharged from here 12/29/2022 and an excerpt of that discharge is included below for context and the fact that after he left here he went directly to [facility] and is now coming back from [facility]. He reports that he is ne ar completion of the program and they are looking for options for him. He acknowledged that probably some of the sadness of feeling overwhelmed has to do with the fact that he is homeless and they have not found a viable option for him at this point though they are fully prepared to receive him back at discharge from here. We discussed the fact that his Prozac is only a 20 mg which is a fairly low-dose and discussed the risks, benefits and alternatives of increasing that to 40 mg and he understood and agreed to proceed as is documented in this note. We discussed this hopefully being a short stay was an increase in his antidepressant and collaboration with [facility] for him to return when he is able to contract for safety Hospital Course He acclimated to the individual, group and milieu therapies provided. He presented reporting lethality however we had excepted that these presentations were a reflection of his need for resources in the face of diminishing resources. He had been kicked out of [facility] and had no place to go. We did not change any medications. He worked with the social work team to identify resources in [place] and agreed to discharge in the morning to those resources. He was also seen by case management while in the emergency department and case management resources were put into place and they were extremely helpful in developing this plan. He had modest improvement during the stay and was able to contract for safety outside of the hospital prior to discharge. During the hospitalization, the patient had routine laboratory studies which were within normal limits except for a few outliers. Additionally, there was a general medical evaluation which was also within normal limits and revealed no new acute processes. At the time of discharge, he denied psychosis or lethality. Mood and anxiety were well managed. The patient endorsed a plan to avoid all drugs of abuse and follow up with the aftercare recommendations of the treatment team. The patient was evaluated and deemed to be absent credible lethality and had achieved the maximum benefit from an inpatient hospitalization, and so was discharged. Hospital Course Hospital Course During the hospitalization, the patient had routine laboratory studies which were within normal limits except for a few outliers.? Additionally, there was a general medical evaluation which was also within normal limits and revealed no new acute processes.? At the time of discharge, lethality was denied and psychosis was resolving.? Mood and anxiety were well managed.? The patient endorsed a plan to avoid all drugs of abuse and follow up with the aftercare recommendations of the treatment team.? The patient was evaluated and deemed to be absent credible lethality and had achieved the maximum benefit from an inpatient hospitalization, and so was discharged. ?The patient had endorsed having been compliant with monthly routine Invega injections. He was given Invega Sustenna 234 mg injection on 12/10/2024 with his next injection due on 01/08/2025. Previous records had suggested numerous inpatient hospitalizations since his last hospitalization here at the neuropsychiatric unit. He had reported that he had initially been feeling suicidal but did not express significant psychotic symptoms here on the unit. He had continued to struggle with executive functioning as he struggled with completing activities of daily living without some significant prompting including showering and brushing his t eeth. Nevertheless, the patient responded to the addition of Prozac to 20 mg daily and the oral Invega was eventually discontinued prior to discharge. He was agreeable to living at the [facility] and remaining on his routine medications on discharge. Involuntary Hold Information Hold Status: Legal Status: 21 Day Hold Date/Time Hold Expires: 01/02/25 96 Hour Hold: 96 Hour Involuntary Admission: No Mental Status Exam MSE Comments: This is an obese tall white male in hospital scrubs with poor grooming but out of bed and more social today. No abnormal involuntary motor movements other than mild psychomotor retardation. He was cooperative with exam in mild distress. Speech was slightly decreased in rate and normal in volume. Mood described as better. His affect remained blunted. Thought process was linear and organized. Thought content: Patient minimized suicidal or homicidal ideation. There was no paranoia appreciated. No overt ideas of reference. He denied auditory or visual hallucinations. He did not appear to be responding to internal stimuli. Attention and concentration were intact and memory appeared somewhat reliable but had some delusional and/or misrepresented statements but were not formally tested. He is alert and oriented x3. Insight was limited. Judgment was improving and impulse control is improving. Discharge Data Studies Completed and Pending: Laboratory Results WBC 12.13 10^3/uL (3. 29-11.43) H 12/04/24 06:01 RBC 4.63 10^6/uL (3.8 5-5.65) 12/04/24 06:01 Hgb 12.90 g/dL (11.27 -16.99) 12/04/24 06:01 Hct 39.0 % (37-53) 12/04/24 06:01 MCV 84.2 fl (82-101) 12/04/24 06:01 MCH 27.9 pg (27-33) 12/04/24 06:01 MCHC 33.1 g/dL (30-55) 12/04/24 06:01 RDW 13.5 % (12.1-15.1 ) 12/04/24 06:01 Plt Count 236 10^3/cmm (157 -399) 12/04/24 06:01 MPV 9.7 fL (7.4-10.4) 12/04/24 06:01 Neut % (Auto) 87.8 % 12/04/24 06:01 Lymph % (Auto) 9.2 % 12/04/24 06:01 Ballard % (Auto) 2.1 % 12/04/24 06:01 Eos % (Auto) 0.2 % 12/04/24 06:01 Baso % (Auto) 0.2 % 12/04/24 06:01 Neut # (Auto) 10.65 10^3/uL (1. 8-7.7) H 12/04/24 06:01 Lymph # (Auto) 1.1 10^3/uL (0.8- 4.8) 12/04/24 06:01 Ballard # (Auto) 0.3 10^3/uL (0.2- 0.9) 12/04/24 06:01 Eos # (Auto) 0.0 10^3/uL (0.0- 0.8) 12/04/24 06:01 Baso # (Auto) 0.0 10^3/uL (0.0- 0.1) 12/04/24 06:01 Nucleated RBC % (a uto) 0 % 12/04/24 06:01 Nucleated RBCs # 0.0 /100WBC 12/04/24 06:01 Sodium 134 mmol/L (136-1 45) L 12/04/24 06:01 Potassium 4.3 mmol/L (3.5-5 .1) 12/04/24 06:01 Chloride 102 mmol/L (98-10 7) 12/04/24 06:01 Carbon Dioxide 21 mmol/L (22-29) L 12/04/24 06:01 Anion Gap 15.3 (5-19) 12/04/24 06:01 BUN 9 mg/dL (6-20) 12/04/24 06:01 Creatinine 0.7 mg/dL (0.7-1. 2) 12/04/24 06:01 GFR Calculation 135.3 mL/min (90- 130) H 12/04/24 06:01 Glucose 117 mg/dL (65-115 ) H 12/04/24 06:01 Calculated Osmolal ity 278 mOsm/kg (285- 295) L 12/04/24 06:01 Calcium 9.5 mg/dL (8.5-10 .5) 12/04/24 06:01 Total Bilirubin 0.2 mg/dL (0.15-1 .2) 12/04/24 06:01 AST 35 U/L (0-40) 12/04/24 06:01 ALT 52 U/L (0-41) H 12/04/24 06:01 Alkaline Phosphata se 74 U/L (40-130) 12/04/24 06:01 Total Protein 7.7 g/dL (6.6-8.7 ) 12/04/24 06:01 Albumin 4.3 g/dL (3.5-5.2 ) 12/04/24 06:01 Globulin 3.4 g/dL (1.3-4.6 ) 12/04/24 06:01 Urine Color Yellow (Yellow) 12/04/24 06:05 Urine Appearance Clear (CLEAR) 12/04/24 06:05 Urine pH 6.0 (5-7) 12/04/24 06:05 Ur Specific Gravit y 1.009 (1.005-1.0 30) 12/04/24 06:05 Urine Protein Negative (Negati ve) 12/04/24 06:05 Urine Glucose (UA) Negative (Normal ) 12/04/24 06:05 Urine Ketones Negative (Negati ve) 12/04/24 06:05 Urine Blood Negative (Negati ve) 12/04/24 06:05 Urine Nitrate Negative (Negati ve) 12/04/24 06:05 Urine Bilirubin Negative (Negati ve) 12/04/24 06:05 Urine Urobilinogen 1.0 mg/dL (Negati ve) 12/04/24 06:05 Ur Leukocyte Shante ase Negative (Negati ve) 12/04/24 06:05 Amorphous Sediment Not Reportable 12/04/24 06:05 Salicylates < 0.3 mg/dL (3-10 ) L 12/04/24 06:01 Urine Opiates Scre en Negative ng/mL (N egative) 12/04/24 06:05 Acetaminophen < 5.0 ug/mL (10-3 0) L 12/04/24 06:01 Ur Barbiturates Sc reen Negative ng/mL (N egative) 12/04/24 06:05 Ur Phencyclidine S crn Negative ng/mL (N egative) 12/04/24 06:05 Ur Amphetamines Sc reen Negative ng/mL (N egative) 12/04/24 06:05 U Benzodiazepines Scrn Negative ng/mL (N egative) 12/04/24 06:05 Urine Cocaine Scre en Negative ng/mL (N egative) 12/04/24 06:05 U Marijuana (THC) Screen Negative ng/mL (N egative) 12/04/24 06:05 Ethyl Alcohol < 10 mg/dL (0-10) 12/04/24 06:01 Vitals: Last Vital Signs Temp 97.7 F 12/16/24 06:00 Pulse 70 12/16/24 06:00 Resp 17 12/16/24 06:00 BP 103/61 12/16/24 06:00 Pulse Ox 96 12/16/24 06:00 O2 Del Method Room Air 12/16/24 06:00 Discharge Plan Discharge Patient Disposition: Home Condition: Stable Prescriptions: New fluoxetine 20 mg Capsule 20 mg PO DAILY 30 Days Qty: 30 1RF Invega Sustenna 156 mg/mL syringe 234 mg IM Q30D Qty: 1 1RF Rx Instructions: Next injection due date 01/06/25 Continued lidocaine HCl [Lidocaine Viscous] 2 % solution 15 ml mucous membrane Q4H PRN (Reason: pain) Qty: 100 0RF naproxen 500 mg tablet 500 mg PO Q12H PRN (Reason: pain) Qty: 10 0RF Discharge Orders: Discharge Order (Routine); Ordered 12/16/24 Ordered By: Juaquin Cooney Referrals: [facility] [Other] - 12/16/24 3:00 pm [facility] [Outside] - 12/23/24 1:15 pm (Assessment for services with Lucita Rollins) Discharge Diet: Usual diet Discharge Activity: Resume usual activity Patient Instructions: Fluoxetine (By mouth), Depression (DC), Anxiety (DC), Suicide Prevention (DC), Opioid Safety Discharge Attestations [facility] Time Spent in Discharge Care*: less than 30 min Specific Discharge Activities: Specific discharge activities: educating patient, discussing with case therapist/social workers/dc planners and documenting/other paperwork Coding Level of Care Code Acute Code for g Fwd Diagnoses Acute psychosis F23 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
[2024-12-16 09:53] VITALS: BP 103/61; PULSE 70; RESP 17; TEMP 36.5; O2SAT 96
== END 2024-12-16 12:58 | disposition home or self-care (01) | DRG 885 ==
LOC: ER 06:54 → ER IP 11:14 → NP 21:53
PROVIDERS: Emergency Medicine; Admitting Provider Psychiatry & Neurology Psychiatry; Emergency Provider Emergency Medicine; Visit Provider Psychiatry & Neurology Psychiatry
DX: F20.1 Disorganized schizophrenia (principal); R45.851 Suicidal ideations; F12.21 Cannabis dependence, in remission; F18.21 Inhalant dependence, in remission; F17.290 Nicotine dependence, other tobacco product, uncomplicated; E66.9 Obesity, unspecified; Z68.35 Body mass index [BMI] 35.0-35.9, adult
CPT/HCPCS: 36415; 80053; 80306; 80307; 81003; 85025; 96372; 97150; 97165; 99285; J9999